=== PATIENT | female | born 1995 | race Hispanic/Latino ===

== ENCOUNTER 2018-03-31 09:41 | Emergency (ER) | payer OTHER, SELFPAY ==
[2018-03-31] MEDS ORDERED: ONDANSETRON 4 MG/2 ML VIAL ONE (10:02)
[2018-03-31] MEDS ORDERED: MORPHINE 4 MG/ML SYR ONE ×2 (10:26→14:38)
[2018-03-31 10:34] LABS: Absolute Lymphocytes (CBC) 1.7 K/uL (0.7-4.9); Absolute Monocytes 1.2 K/uL (0.1-1.3); Basophils % 0.4 % (0-1.3); Eosinophils % 0.2 % (0-4.4); Hematocrit 43.5 % (36.0-45.0); Lymphocytes % 8.9 % (15.3-44.8); MCH 30.5 pg (27.0-35.0); MCV 90.1 fL (80-100); MPV 8.4 fL (7.6-11.3); Monocytes % 6.1 % (3.3-12.3); RBC Red Blood Cell Count 4.83 M/uL (3.86-4.86)
[2018-03-31 10:36] LABS: Protime INR 0.91
[2018-03-31 10:37] LABS: Potassium 3.7 mEq/L (3.6-5.0)
[2018-03-31 10:43] LABS: Albumin 4.6 g/dL (3.2-5.5); Bilirubin Direct 0.1 mg/dL (0-0.2); Bilirubin Total 0.5 mg/dL (0.3-1.2); Protein, Total 8.2 g/dL (6.0-8.3)
[2018-03-31 10:47] LABS: CKMB Creatine Kinase MB 2.5 ng/ml (0.3-4.0)
[2018-03-31 10:51] LABS: Urine Blood NEGATIVE (NEG); Urine Glucose NEGATIVE (NEG); Urine Protein NEGATIVE (NEG)
[2018-03-31 10:59] LABS: Urine Bacteria <20 /HPF (<20); Urine Culture Reflex Order REFLEXED; Urine RBC <5 /HPF (NONE SEEN)
--- NOTE | 2018-03-31 11:38 | RAD REPORT ---
EXAM DESCRIPTION: Emmie Single View03/31/2018 10:43 am CLINICAL HISTORY: Chest pain COMPARISON: none FINDINGS: The lungs appear clear of acute infiltrate. The heart is normal size IMPRESSION: No acute abnormalities displayed
--- NOTE | 2018-03-31 15:20 | EDPHYS ---
Physician Documentation [facility] Name: Beena Garcia Age: 22 yrs Sex: Female : 1995 Arrival Date: 03/31/2018 Time: 09:43 Bed 5 Private MD: None, None ED Physician Nikhil Agustin HPI: 03/31 14:00 This 22 yrs old Female presents to ER via Ambulatory with complaints of Chest pm1 Pain. 16:03 The patient or guardian reports chest pain that is located primarily in the anterior pm1 chest wall, left. The pain radiates to bilaterally. Associated signs and symptoms: Pertinent positives: nausea, shortness of breath. The chest pain is described as burning. Duration: The patient or guardian reports a single episode, that is still ongoing, that lasted 4 hour(s), Onset at 0600 today. Modifying factors: The symptoms are alleviated by nothing. the symptoms are aggravated by deep breath, palpation of area. Severity of pain: in the emergency department the pain is actually worse. The patient has not experienced similar symptoms in the past. The patient has not recently seen a physician. 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 - Social history:: Smoking status: Patient/guardian denies using tobacco. - Ebola Screening: : No symptoms or risks identified at this time. ROS: 14:00 Constitutional: Negative for fever, chills, and weight loss, Eyes: Negative for injury, pm1 pain, redness, and discharge, ENT: Negative for injury, pain, and discharge, Neck: Negative for injury, pain, and swelling. 14:00 Respiratory: Negative for shortness of breath, cough, wheezing, and pleuritic chest pain, Abdomen/GI: Negative for abdominal pain, nausea, vomiting, diarrhea, and constipation, Back: Negative for injury and pain, : Negative for injury, bleeding, discharge, and swelling, MS/Extremity: Negative for injury and deformity, Skin: Negative for injury, rash, and discoloration, Neuro: Negative for headache, weakness, numbness, tingling, and seizure. 14:00 Cardiovascular: Positive for chest pain, of the anterior aspect of left upper chest, Negative for edema, palpitations. Exam: 14:00 Constitutional: This is a well developed, well nourished patient who is awake, alert, pm1 and in no acute distress. Head/Face: Normocephalic, atraumatic. Eyes: Pupils equal round and reactive to light, extra-ocular motions intact. Lids and lashes normal. Conjunctiva and sclera are non-icteric and not injected. Cornea within normal limits. Periorbital areas with no swelling, redness, or edema. ENT: Nares patent. No nasal discharge, no septal abnormalities noted. Tympanic membranes are normal and external auditory canals are clear. Oropharynx with no redness, swelling, or masses, exudates, or evidence of obstruction, uvula midline. Mucous membranes moist. Neck: Trachea midline, no thyromegaly or masses palpated, and no cervical lymphadenopathy. Supple, full range of motion without nuchal rigidity, or vertebral point tenderness. No Meningismus. 14:00 Cardiovascular: Regular rate and rhythm with a normal S1 and S2. No gallops, murmurs, or rubs. Normal PMI, no JVD. No pulse deficits. Respiratory: Lungs have equal breath sounds bilaterally, clear to auscultation and percussion. No rales, rhonchi or wheezes noted. No increased work of breathing, no retractions or nasal flaring. Abdomen/GI: Soft, non-tender, with normal bowel sounds. No distension or tympany. No guarding or rebound. No evidence of tenderness throughout. Back: No spinal tenderness. No costovertebral tenderness. Full range of motion. Skin: Warm, dry with normal turgor. Normal color with no rashes, no lesions, and no evidence of cellulitis. MS/ Extremity: Pulses equal, no cyanosis. Neurovascular intact. Full, normal range of motion. 14:00 Chest/axilla: Inspection: normal, Palpation: tenderness, that is moderate, of the anterior aspect of left upper chest and mid-sternal area, that totally reproduces the patient's complaints, reproduced totally with inspiration . 14:00 Neuro: Orientation: is normal, Motor: is normal, moves all fours. Vital Signs: 09:47 BP 132 / 87; Pulse 85; Resp 16; Temp 97.9; Pulse Ox 100% on R/A; Weight 65.77 kg; hb Height 4 ft. 11 in. (149.86 cm); Pain 9/10; 10:28 BP 123 / 83; Pulse 89; Resp 16 S; Pulse Ox 98% on R/A; Pain 9/10; aa5 11:32 BP 122 / 87; Pulse 85; Resp 20; Pulse Ox 97% ; jl7 12:20 BP 111 / 76; Pulse 80; Resp 16 S; Pulse Ox 96% on R/A; Pain 0/10; aa5 13:05 BP 105 / 75; Pulse 88; Resp 12; Pulse Ox 97% on R/A; Pain 0/10; ch 14:00 BP 107 / 70; Pulse 82; Resp 16; Pulse Ox 97% ; Pain 4/10; jl7 15:47 BP 112 / 68; Pulse 65; Resp 14; Temp 97.8; Pulse Ox 99% on R/A; Pain 0/10; ch 09:47 Body Mass Index 29.29 (65.77 kg, 149.86 cm) hb MDM: 09:51 Patient medically screened. pm1 15:15 Data reviewed: vital signs. Data interpreted: Pulse oximetry: on room air is 97 %. pm1 Interpretation: normal. Counseling: I had a detailed discussion with the patient and/or guardian regarding: the historical points, exam findings, and any diagnostic results supporting the discharge/admit diagnosis, lab results, radiology results, the need for outpatient follow up, to return to the emergency department if symptoms worsen or persist or if there are any questions or concerns that arise at home. 15:15 ED course: NSR ECG and negative troponin x 2 4 hours apart. pm1 03/31 09:52 Order name: Basic Metabolic Panel; Complete Time: 11:19 pm03/31 09:52 Order name: BNP; Complete Time: 11:19 pm03/31 09:52 Order name: CBC with Diff; Complete Time: 10:39 pm03/31 09:52 Order name: Ckmb; Complete Time: 11:19 pm03/31 09:52 Order name: CPK; Complete Time: 11:19 pm03/31 09:52 Order name: LFT's; Complete Time: 11:19 pm03/31 09:52 Order name: Magnesium; Complete Time: 11:19 pm03/31 09:52 Order name: PT-INR; Complete Time: 10:39 pm03/31 09:52 Order name: Ptt, Activated; Complete Time: 10:39 pm03/31 09:52 Order name: Troponin (emerg Dept Use Only); Complete Time: 11:19 pm1 03/31 10:18 Order name: Urine Dipstick--Ancillary (enter results); Complete Time: 11:19 bd 03/31 10:18 Order name: Urine --Ancillary (enter results); Complete Time: 11:19 bd 03/31 10:43 Order name: Urine Microscopic Only; Complete Time: 11:19 jb1 03/31 11:01 Order name: Urine Culture EDMS 03/31 09:52 Order name: Urine Test (obtain specimen); Complete Time: 10:21 pm03/31 09:52 Order name: XRAY Chest (1 view); Complete Time: 11:38 pm03/31 09:52 Order name: EKG; Complete Time: 09:52 pm03/31 09:52 Order name: Cardiac monitoring; Complete Time: 09:59 pm03/31 09:52 Order name: EKG - Nurse/Tech; Complete Time: 09:59 pm03/31 09:52 Order name: IV Saline Lock; Complete Time: 10:21 pm03/31 09:52 Order name: Labs collected and sent; Complete Time: 10:21 pm03/31 09:52 Order name: O2 Per Protocol; Complete Time: 09:59 pm03/31 09:52 Order name: O2 Sat Monitoring; Complete Time: 09:59 pm03/31 09:52 Order name: Urine Dipstick-Ancillary (obtain specimen); Complete Time: 10:21 pm03/31 11:41 Order name: D-Dimer; Complete Time: 11:56 pm03/31 14:19 Order name: Troponin (emerg Dept Use Only); Complete Time: 15:15 pm03/31 14:24 Order name: EKG; Complete Time: 14:25 jl7 03/31 14:24 Order name: EKG - Nurse/Tech; Complete Time: 14:35 jl7 Administered Medications: 10:25 Drug: Zofran 4 mg Route: IVP; Site: right antecubital; aa5 10:30 Follow up: Response: No adverse reaction; Nausea is decreased aa5 10:29 Drug: morphine 4 mg Route: IVP; Site: right antecubital; aa5 10:35 Follow up: Response: No adverse reaction aa5 14:40 Drug: morphine 2 mg Route: IVP; Site: right antecubital; jl7 15:34 Follow up: Response: No adverse reaction; Marked relief of symptoms Disposition: 04/01 14:08 Co-signature as Attending Physician, Nikhil Agustin MD I agree with the assessment and samson plan of care. Disposition: 03/31/18 15:19 Discharged to Home. Impression: Chest pain, unspecified. - Condition is Stable. - Discharge Instructions: Nonspecific Chest Pain. - Work release form, Family Work Release, Medication Reconciliation Form, Thank You Letter form. - Follow up: Emergency Department; When: As needed; Reason: Worsening of condition. Follow up: Private Physician; When: 2 - 3 days; Reason: Recheck today's complaints, Continuance of care, Re-evaluation by your physician. - Problem is new. - Symptoms have improved. Signatures: Dispatcher [employer] EDAlta Smith, RN RN Nikhil Galdamez MD MD cha Calderon, Audri, RN RN aa5 Jose Luis Adame, INTELLIGENCE ENGINEER INTELLIGENCE ENGINEER pm1 Christine Ray, RN RN Nicole Luna RN RN jl7 Corrections: (The following items were deleted from the chart) 03/31 15:48 15:19 03/31/2018 15:19 Discharged to Home. Impression: Chest pain, unspecified. Condition is Stable. Forms are Medication Reconciliation Form, Thank You Letter, Antibiotic Education, Prescription Opioid Use. Follow up: Emergency Department; When: As needed; Reason: Worsening of condition. Follow up: Private Physician; When: 2 - 3 days; Reason: Recheck today's complaints, Continuance of care, Re-evaluation by your physician. Problem is new. Symptoms have improved. pm1
--- NOTE | 2018-03-31 15:20 | ER ---
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 Also c/o nausea and SOB. Denies fever/cough/cardiac hx. Transition of care: patient was not received from another setting of care. Onset of symptoms was March 31, 2018. Risk Assessment: Do you want to hurt yourself or someone else? Patient reports no desire to harm self or others. Initial Sepsis Screen: Does the patient meet any 2 criteria? No. Patient's initial sepsis screen is negative. Does the patient have a suspected source of infection? No. Patient's initial sepsis screen is negative. Care prior to arrival: None. 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 - Social history:: Smoking status: Patient/guardian denies using tobacco. - Ebola Screening: : No symptoms or risks identified at this time. Screenin:05 Abuse screen: Denies threats or abuse. Nutritional screening: No deficits noted. aa5 Tuberculosis screening: No symptoms or risk factors identified. Fall Risk None identified. Assessment: 10:00 General: Appears uncomfortable, Behavior is anxious. Pain: Complains of pain in aa5 mid-sternal area Pain radiates to jaw Pain currently is 9 out of 10 on a pain scale. Quality of pain is described as pressure, Pain began last night. Pt states "I just had a little bit of pain last night and this morning when I woke up I still had it" Is continuous. Neuro: Level of Consciousness is awake, alert, obeys commands, Oriented to person, place, time, situation, Supervisor Tile And Mottle are equal bilaterally Moves all extremities. Gait is steady, Speech is normal, Facial symmetry appears normal, Pupils are PERRLA, Reports numbness in chin, right jaw and left jaw. Cardiovascular: Heart tones S1 S2 present Rhythm is regular. Respiratory: Reports shortness of breath Airway is patent Respiratory effort is even, unlabored, Respiratory pattern is regular, symmetrical, Breath sounds are clear bilaterally. Denies cough. GI: Abdomen is round non-distended, Bowel sounds present X 4 quads. Abd is soft and non tender X 4 quads. Reports nausea, Patient currently denies vomiting. : No signs and/or symptoms were reported regarding the genitourinary system. EENT: No signs and/or symptoms were reported regarding the EENT system. Derm: Skin is pink, warm \\T\\ dry. Musculoskeletal: Range of motion: intact in all extremities. 10:28 Reassessment: Patient and/or family updated on plan of care and expected duration. Pain aa5 level reassessed. Patient is alert, oriented x 3, equal unlabored respirations, skin warm/dry/pink. Pt requesting pain medication, MILKING WORKER notified. . 11:45 Reassessment: Patient and/or family updated on plan of care and expected duration. Pain aa5 level reassessed. Patient is alert, oriented x 3, equal unlabored respirations, skin warm/dry/pink. Patient denies pain at this time. Patient states feeling better. 12:20 Reassessment: Patient and/or family updated on plan of care and expected duration. Pain aa5 level reassessed. Patient is alert, oriented x 3, equal unlabored respirations, skin warm/dry/pink. Patient denies pain at this time. 13:01 Reassessment: Patient appears in no apparent distress at this time. Patient and/or ch family updated on plan of care and expected duration. Pain level reassessed. Patient is alert, oriented x 3, equal unlabored respirations, skin warm/dry/pink. Patient denies pain at this time. Patient states feeling better. Patient states symptoms have improved. 14:00 Reassessment: Patient and/or family updated on plan of care and expected duration. Pain jl7 level reassessed. Patient is alert, oriented x 3, equal unlabored respirations, skin warm/dry/pink. 14:15 Reassessment: Repeat troponin drawn and sent to lab. Pt reports continued chest pain, jl7 rated 4/10, provider notified, see MAR for orders. 15:47 Reassessment: Patient appears in no apparent distress at this time. Patient and/or ch family updated on plan of care and expected duration. Pain level reassessed. Patient is alert, oriented x 3, equal unlabored respirations, skin warm/dry/pink. Patient denies pain at this time. Patient states feeling better. Patient states symptoms have improved. Vital Signs: 09:47 BP 132 / 87; Pulse 85; Resp 16; Temp 97.9; Pulse Ox 100% on R/A; Weight 65.77 kg; hb Height 4 ft. 11 in. (149.86 cm); Pain 9/10; 10:28 BP 123 / 83; Pulse 89; Resp 16 S; Pulse Ox 98% on R/A; Pain 9/10; aa5 11:32 BP 122 / 87; Pulse 85; Resp 20; Pulse Ox 97% ; jl7 12:20 BP 111 / 76; Pulse 80; Resp 16 S; Pulse Ox 96% on R/A; Pain 0/10; aa5 13:05 BP 105 / 75; Pulse 88; Resp 12; Pulse Ox 97% on R/A; Pain 0/10; ch 14:00 BP 107 / 70; Pulse 82; Resp 16; Pulse Ox 97% ; Pain 4/10; jl7 15:47 BP 112 / 68; Pulse 65; Resp 14; Temp 97.8; Pulse Ox 99% on R/A; Pain 0/10; ch 09:47 Body Mass Index 29.29 (65.77 kg, 149.86 cm) hb ED Course: 09:43 Patient arrived in ED. mr 09:44 None, None is Private Physician. mr 09:47 Triage completed. hb 09:48 Arm band placed on left wrist. hb 09:49 Jose Luis Adame NP is PHCP. pm1 09:49 Nikhil Agustin MD is Attending Physician. pm1 09:49 Cally Moe, MISHA is Primary Nurse. aa5 10:00 Patient has correct armband on for positive identification. Placed in gown. Bed in low aa5 position. Call light in reach. Side rails up X2. 10:00 forepart laster on. Pulse ox on. NIBP on. aa5 10:06 Patient maintains SpO2 saturation greater than 95% on room air. aa5 10:06 No provider procedures requiring assistance completed. aa5 10:20 Initial lab(s) drawn, by me, sent to lab. Urine collected: clean catch specimen, clear, jp3 jordan colored. Inserted saline lock: 22 gauge in right antecubital area, using aseptic technique. Blood collected. 10:42 X-ray completed. Portable x-ray completed in exam room. Patient tolerated procedure kw well. 10:43 XRAY Chest (1 view) In Process Unspecified. EDMS 13:00 Primary Nurse role handed off by Cally Moe, RN 13:00 Alta Newberry, MISHA is Primary Nurse. ch 14:20 EKG done, by ED staff. jp3 15:47 No apparent distress. Resting quietly. ch 15:47 IV discontinued, intact, bleeding controlled, No redness/swelling at site. Pressure ch dressing applied. Administered Medications: 10:25 Drug: Zofran 4 mg Route: IVP; Site: right antecubital; aa5 10:30 Follow up: Response: No adverse reaction; Nausea is decreased aa5 10:29 Drug: morphine 4 mg Route: IVP; Site: right antecubital; aa5 10:35 Follow up: Response: No adverse reaction aa5 14:40 Drug: morphine 2 mg Route: IVP; Site: right antecubital; jl7 15:34 Follow up: Response: No adverse reaction; Marked relief of symptoms ch Outcome: 15:19 Discharge ordered by MD. pm1 15:47 Discharged to home ambulatory, with family. ch 15:47 Condition: improved 15:47 Discharge instructions given to patient, family, Instructed on discharge instructions, follow up and referral plans. Demonstrated understanding of instructions, follow-up care. 15:48 Patient left the ED. ch Signatures: Dispatcher [employer] EDWA Alta Newberry, Demetria Lindsay RN, ch mr Cally Moe, RN RN aa5 Tamra Gates Patrick, MILKING WORKER MILKING WORKER pm1 Christine Ray RN RN hb Nicole Thomas RN RN jl7 Mairano Dupree jp3 Corrections: (The following items were deleted from the chart) 09:53 09:46 Presenting complaint: Patient states: Chest pressure that radiates to left jaw hb that started during sleep this morning. Also c/o nausea and SOB. Denies fever/cough/cardiac hx hb 10:05 10:00 Pain: Complains of pain in mid-sternal area Pain radiates to jaw Pain Quality of aa5 pain is described as pressure, Pain began last night. Pt states "I just had a little bit of pain last night and this morning when I woke up I still had it" Is continuous, aa5
--- NOTE | 2018-04-01 06:31 | EKG ---
Test Date: 2018-03-31 Test Time: 09:56:18 Attorney Recruiter: VLAD MEASUREMENT RESULTS: Intervals: Rate: 72 CA: 154 QRSD: 80 QT: 358 QTc: 392 [place]: P: 39 CA: 154 QRS: 64 T: 73 INTERPRETIVE STATEMENTS: Normal sinus rhythm Normal ECG Compared to ECG 06/13/2017 01:46:02 Sinus tachycardia no longer present T-wave abnormality no longer present Electronically Signed On 04-01-18 06:29:57 CDT by Aakash Joaquin
--- NOTE | 2018-04-01 06:31 | EKG ---
Test Date: 2018-03-31 Test Time: 14:24:58 Marine Cargo Specialist: BECKY MEASUREMENT RESULTS: Intervals: Rate: 80 [place]: 144 QRSD: 84 QT: 368 QTc: 424 [place]: P: 45 [place]: 144 QRS: 61 T: 52 INTERPRETIVE STATEMENTS: Normal sinus rhythm Early repolarization Normal ECG Compared to ECG 03/31/2018 09:56:18 Early repolarization now present Electronically Signed On 04-01-18 06:29:21 CDT by Aakash Joaquin
== END 2018-03-31 15:48 | disposition home or self-care (01) ==
LOC: ER 09:41
DX: R07.9 Chest pain, unspecified (principal); Z88.5 Allergy status to narcotic agent
CPT/HCPCS: 36415; 71045; 80048; 80076; 81003; 81015; 81025; 82550; 82553; 83735; 83880; 84484; 85025; 85379; 85610; 85730; 87086; 87088; 93005; 96374; 96375; 99285; J2405

== ENCOUNTER 2018-04-08 05:33 | Emergency (ER) | payer SELFPAY ==
[2018-04-08] MEDS ORDERED: PANTOPRAZOLE 40MG TABLET PO ONE (06:28)
[2018-04-08] MEDS ORDERED: MAGNE/ALUM HYDROXD 30 ML UCUP ONE (06:28)
[2018-04-08] MEDS ORDERED: LIDOCAINE VISCOUS 2% SOLN 15 ML UDC ONE (06:29)
--- NOTE | 2018-04-08 07:29 | ER ---
Nurse's Notes [facility] Name: Beena Garcia Age: 22 yrs Sex: Female : 1995 Arrival Date: 04/08/2018 Time: 05:36 Bed 19 Private MD: Diagnosis: Gastro-esophageal reflux disease Presentation: 04/08 05:46 Presenting complaint: Patient states: I HAD THE SAME LAST WEEK, THIS CHEST PAIN IN THE bp MIDDLE, SO BAD I CAN'T SLEEP PT APPEARS IN NO ACUTE DISTRESS. Transition of care: patient was not received from another setting of care. Onset of symptoms is unknown. Risk Assessment: Do you want to hurt yourself or someone else? Patient reports no desire to harm self or others. Initial Sepsis Screen: Does the patient meet any 2 criteria? No. Patient's initial sepsis screen is negative. Does the patient have a suspected source of infection? No. Patient's initial sepsis screen is negative. Care prior to arrival: None. 05:46 Method Of Arrival: Ambulatory bp 05:46 Acuity: LETTY 3 bp Triage Assessment: 05:47 General: Appears in no apparent distress. comfortable, obese, Behavior is calm, bp cooperative, appropriate for age. Pain: Complains of pain in mid-sternal area. EENT: No deficits noted. Neuro: Level of Consciousness is awake, alert, obeys commands, Oriented to person, place, time, situation, Appropriate for age. Cardiovascular: Rhythm is sinus rhythm. Respiratory: Airway is patent. GI: No signs and/or symptoms were reported involving the gastrointestinal system. : No signs and/or symptoms were reported regarding the genitourinary system. Derm: No deficits noted. Musculoskeletal: Circulation, motion, and sensation intact. Range of motion: intact in all extremities. 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 - Social history:: Smoking status: Patient/guardian denies using tobacco, Patient uses alcohol. - Ebola Screening: : Patient negative for fever greater than or equal to 101.5 degrees Fahrenheit, and additional compatible Ebola Virus Disease symptoms Patient denies exposure to infectious person Patient denies travel to an Ebola-affected area in the 21 days before illness onset No symptoms or risks identified at this time. Screenin:50 Abuse screen: Denies threats or abuse. Denies injuries from another. Nutritional bp screening: No deficits noted. Tuberculosis screening: No symptoms or risk factors identified. Fall Risk None identified. Assessment: 05:49 General: SEE TRIAGE NOTE. bp 07:40 Reassessment: Patient appears in no apparent distress at this time. Patient and/or sv family updated on plan of care and expected duration. Pain level reassessed. Patient is alert, oriented x 3, equal unlabored respirations, skin warm/dry/pink. Vital Signs: 05:47 BP 119 / 71; Pulse 107; Resp 16; Temp 98.7; Pulse Ox 97% ; Weight 68.04 kg; Height 4 bp ft. 11 in. (149.86 cm); 07:15 BP 114 / 67; Pulse 80; Resp 18; Pulse Ox 97% ; sv 05:47 Body Mass Index 30.30 (68.04 kg, 149.86 cm) bp ED Course: 05:36 Patient arrived in ED. es 05:38 Maldonado Norton, RN is Primary Nurse. bp 05:47 Triage completed. bp 05:47 Arm band placed on. bp 05:50 Patient has correct armband on for positive identification. Bed in low position. Call bp light in reach. Side rails up X2. Pulse ox on. NIBP on. 06:10 Caron Sutton FNP-C is PHCP. snw 06:10 Waldemar Mcmahan MD is Attending Physician. snw 07:06 Primary Nurse role handed off by Maldonado Norton, MISHA bd 07:15 Luma Gaviria, MISHA is Primary Nurse. sv 07:40 No provider procedures requiring assistance completed. Patient did not have IV access sv during this emergency room visit. Patient maintains SpO2 saturation greater than 95% on room air. Administered Medications: 06:31 Drug: GI Cocktail without - (Maalox Suspension 30 ml, Lidocaine Liquid 2 % 15 bp ml) Route: PO; 07:41 Follow up: Response: No adverse reaction sv 06:31 Drug: ProTONIX 40 mg Route: PO; bp 07:41 Follow up: Response: No adverse reaction sv Outcome: 07:29 Discharge ordered by . snw 07:40 Discharged to home ambulatory, with friend. 07:40 Condition: stable 07:40 Discharge instructions given to patient, Instructed on discharge instructions, follow up and referral plans. medication usage, stay away acidic foods and drinks Demonstrated understanding of instructions, follow-up care, medications, Prescriptions given X 1. 07:42 Patient left the ED. Signatures: Renetta Palacios Stephanie, RN RN sv Caron Sutton, HOCKEY INSTRUCTOR-C HOCKEY INSTRUCTOR-Csnw Soniya Mccoy Brian, RN RN bp
--- NOTE | 2018-04-08 07:29 | EDPHYS ---
Physician Documentation [facility] Name: Beena Garcia Age: 22 yrs Sex: Female : 1995 Arrival Date: 04/08/2018 Time: 05:36 Bed 19 Private MD: ED Physician Waldemar Mcmahan HPI: 04/08 06:28 This 22 yrs old Female presents to ER via Ambulatory with complaints of Chest snw Pain. 06:28 Onset: The symptoms/episode began/occurred suddenly, and became persistent this snw morning. Associated signs and symptoms: The patient has no apparent associated signs or symptoms. Modifying factors: The patient symptoms are alleviated by nothing. The patient has experienced similar episodes in the past, multiple times. The patient has been recently seen by a physician: The patient has been recently seen at the [facility] Emergency Department, last week, for similar complaints extended work up negative. 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 - Social history:: Smoking status: Patient/guardian denies using tobacco, Patient uses alcohol. - Ebola Screening: : Patient negative for fever greater than or equal to 101.5 degrees Fahrenheit, and additional compatible Ebola Virus Disease symptoms Patient denies exposure to infectious person Patient denies travel to an Ebola-affected area in the 21 days before illness onset No symptoms or risks identified at this time. ROS: 06:27 Constitutional: Negative for fever, chills, and weight loss, Eyes: Negative for injury, snw pain, redness, and discharge, ENT: Negative for injury, pain, and discharge, Neck: Negative for injury, pain, and swelling, Respiratory: Negative for shortness of breath, cough, wheezing, and pleuritic chest pain, Abdomen/GI: Negative for abdominal pain, nausea, vomiting, diarrhea, and constipation, Back: Negative for injury and pain, : Negative for injury, bleeding, discharge, and swelling, MS/Extremity: Negative for injury and deformity, Skin: Negative for injury, rash, and discoloration, Neuro: Negative for headache, weakness, numbness, tingling, and seizure. 06:27 Cardiovascular: Positive for chest pain, of the mid-sternal area. Exam: 06:27 Constitutional: This is a well developed, well nourished patient who is awake, alert, snw and in no acute distress. Head/Face: Normocephalic, atraumatic. Eyes: Pupils equal round and reactive to light, extra-ocular motions intact. Lids and lashes normal. Conjunctiva and sclera are non-icteric and not injected. Cornea within normal limits. Periorbital areas with no swelling, redness, or edema. ENT: Nares patent. No nasal discharge, no septal abnormalities noted. Tympanic membranes are normal and external auditory canals are clear. Oropharynx with no redness, swelling, or masses, exudates, or evidence of obstruction, uvula midline. Mucous membranes moist. Neck: Trachea midline, no thyromegaly or masses palpated, and no cervical lymphadenopathy. Supple, full range of motion without nuchal rigidity, or vertebral point tenderness. No Meningismus. Chest/axilla: Normal chest wall appearance and motion. Nontender with no deformity. No lesions are appreciated. Cardiovascular: Regular rate and rhythm with a normal S1 and S2. No gallops, murmurs, or rubs. Normal PMI, no JVD. No pulse deficits. Respiratory: Lungs have equal breath sounds bilaterally, clear to auscultation and percussion. No rales, rhonchi or wheezes noted. No increased work of breathing, no retractions or nasal flaring. Abdomen/GI: Soft, non-tender, with normal bowel sounds. No distension or tympany. No guarding or rebound. No evidence of tenderness throughout. Back: No spinal tenderness. No costovertebral tenderness. Full range of motion. Skin: Warm, dry with normal turgor. Normal color with no rashes, no lesions, and no evidence of cellulitis. MS/ Extremity: Pulses equal, no cyanosis. Neurovascular intact. Full, normal range of motion. Neuro: Awake and alert, GCS 15, oriented to person, place, time, and situation. Cranial nerves II-XII grossly intact. Motor strength 5/5 in all extremities. Sensory grossly intact. Cerebellar exam normal. Normal gait. Psych: Awake, alert, with orientation to person, place and time. Behavior, mood, and affect are within normal limits. Vital Signs: 05:47 BP 119 / 71; Pulse 107; Resp 16; Temp 98.7; Pulse Ox 97% ; Weight 68.04 kg; Height 4 bp ft. 11 in. (149.86 cm); 07:15 BP 114 / 67; Pulse 80; Resp 18; Pulse Ox 97% ; sv 05:47 Body Mass Index 30.30 (68.04 kg, 149.86 cm) bp MDM: 06:10 Patient medically screened. snw 07:30 Data reviewed: vital signs, nurses notes. Data interpreted: Pulse oximetry: on room air snw is 97 %. Interpretation: normal. Counseling: I had a detailed discussion with the patient and/or guardian regarding: the historical points, exam findings, and any diagnostic results supporting the discharge/admit diagnosis, the need for outpatient follow up, to return to the emergency department if symptoms worsen or persist or if there are any questions or concerns that arise at home. Special discussion: Based on the history and exam findings, there is no indication for further emergent testing or inpatient evaluation. I discussed with the patient/guardian the need to see the primary care provider for further evaluation of the symptoms. Administered Medications: 06:31 Drug: GI Cocktail without - (Maalox Suspension 30 ml, Lidocaine Liquid 2 % 15 bp ml) Route: PO; 07:41 Follow up: Response: No adverse reaction sv 06:31 Drug: ProTONIX 40 mg Route: PO; bp 07:41 Follow up: Response: No adverse reaction sv Disposition: 13:06 Co-signature as Attending Physician, Waldemar Mcmahan MD. Disposition: 04/08/18 07:29 Discharged to Home. Impression: Gastro-esophageal reflux disease. - Condition is Stable. - Discharge Instructions: Gastroesophageal Reflux Disease, Adult. - Prescriptions for Nexium 20 mg Oral Capsule - take 1 capsule by ORAL route once daily; 20 capsule. - Medication Reconciliation Form, Thank You Letter, Antibiotic Education, Prescription Opioid Use form. - Follow up: Private Physician; When: 2 - 3 days; Reason: Recheck today's complaints, Continuance of care, Re-evaluation by your physician. Follow up: Emergency Department; When: As needed; Reason: Worsening of condition. Signatures: Luma Gaviria RN RN Caron Akbar, NEGATIVE TURNER-C NEGATIVE TURNER-Csnw Waldemar Mcmahan MD MD gs Peltier, Brian, RN RN bp Corrections: (The following items were deleted from the chart) 07:42 07:29 04/08/2018 07:29 Discharged to Home. Impression: Gastro-esophageal reflux sv disease. Condition is Stable. Forms are Medication Reconciliation Form, Thank You Letter, Antibiotic Education, Prescription Opioid Use. Follow up: Private Physician; When: 2 - 3 days; Reason: Recheck today's complaints, Continuance of care, Re-evaluation by your physician. Follow up: Emergency Department; When: As needed; Reason: Worsening of condition. snw
== END 2018-04-08 07:42 | disposition home or self-care (01) ==
LOC: ER 05:33
DX: K21.9 Gastro-esophageal reflux disease without esophagitis (principal); Z88.6 Allergy status to analgesic agent
CPT/HCPCS: 99284

== ENCOUNTER 2018-10-02 17:12 | Emergency (ER) | payer SELFPAY ==
--- NOTE | 2018-10-02 20:21 | ER ---
Nurse's Notes [facility] Name: Beena Garcia Age: 23 yrs Sex: Female : 1995 Arrival Date: 10/02/2018 Time: 17:14 Bed 12 Private MD: Diagnosis: Acute pharyngitis, unspecified Presentation: 10/02 17:34 Presenting complaint: Patient states: cough, congestion, sore throat, and layne ear pain aa5 x 1 week ago. Transition of care: patient was not received from another setting of care. Onset of symptoms was September 2018. Risk Assessment: Do you want to hurt yourself or someone else? Patient reports no desire to harm self or others. Initial Sepsis Screen: Does the patient meet any 2 criteria? No. Patient's initial sepsis screen is negative. Does the patient have a suspected source of infection? No. Patient's initial sepsis screen is negative. Care prior to arrival: None. 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 - Social history:: Smoking status: Patient/guardian denies using tobacco. - Ebola Screening: : No symptoms or risks identified at this time. Screenin:37 Abuse screen: Denies threats or abuse. Denies injuries from another. Nutritional iw screening: No deficits noted. Tuberculosis screening: No symptoms or risk factors identified. Fall Risk None identified. Assessment: 19:34 General: Appears in no apparent distress. Behavior is calm, cooperative. Pain: iw Complains of pain in throat. Pain: Complains of pain in right ear and left ear. Neuro: Level of Consciousness is awake, alert, obeys commands, Oriented to person, place, time, situation, Moves all extremities. Full function. Cardiovascular: Patient's skin is warm and dry. Respiratory: Respiratory effort is even, unlabored, Respiratory pattern is regular. Derm: Skin is intact, is healthy with good turgor. Musculoskeletal: Range of motion: intact in all extremities. 20:12 Reassessment: Patient appears in no apparent distress at this time. Patient and/or iw family updated on plan of care and expected duration. Pain level reassessed. Patient is alert, oriented x 3, equal unlabored respirations, skin warm/dry/pink. Vital Signs: 17:35 BP 115 / 77; Pulse 82; Resp 16 S; Temp 98.6(TE); Pulse Ox 98% on R/A; Weight 68.04 kg aa5 (R); Height 4 ft. 11 in. (149.86 cm) (R); Pain 7/10; 20:11 BP 124 / 77; Pulse 78; Resp 16 S; Pulse Ox 98% on R/A; Pain 0/10; iw 17:35 Body Mass Index 30.30 (68.04 kg, 149.86 cm) aa5 ED Course: 17:14 Patient arrived in ED. rg4 17:34 Triage completed. aa5 17:34 Arm band placed on. aa5 18:17 Ivonne Thompson FNP-C is [facility]. kb 18:17 Eduard Grady MD is Attending Physician. kb 19:29 Priscila Allen, RN is Primary Nurse. iw 19:33 Flu and/or RSV swab sent to lab. Strep swab sent to lab. iw 20:00 Patient has correct armband on for positive identification. iw 20:19 No provider procedures requiring assistance completed. Patient did not have IV access iw during this emergency room visit. Administered Medications: No medications were administered Outcome: 20:20 Discharge ordered by MD. kb 20:30 Discharged to home ambulatory, with family. iw 20:30 Condition: good 20:30 Discharge instructions given to patient, Instructed on discharge instructions, follow up and referral plans. Demonstrated understanding of instructions, follow-up care. 20:34 Patient left the ED. iw Signatures: Ivonne hTompson FNP-C FNP-Priscila Guzmán, RN RN Cally Moe RN RN aa5 Awilda Kerr rg4
--- NOTE | 2018-10-02 20:22 | EDPHYS ---
Physician Documentation [facility] Name: Beena Garcia Age: 23 yrs Sex: Female : 1995 Arrival Date: 10/02/2018 Time: 17:14 Bed 12 Private MD: ED Physician Eduard Grady HPI: 10/02 20:09 This 23 yrs old Female presents to ER via Ambulatory with complaints of Flu kb Symptoms. 20:09 The patient or guardian reports cough, that is intermittent, described as moderate, flu kb symptoms, low-grade fever, myalgias. Onset: The symptoms/episode began/occurred 1 week(s) ago. Severity of symptoms: At their worst the symptoms were moderate, in the emergency department the symptoms are unchanged. Modifying factors: The symptoms are alleviated by nothing, the symptoms are aggravated by nothing. Associated signs and symptoms: Pertinent positives: earache, sore throat, Pertinent negatives: chest pain, diarrhea, fever, nausea, rhinorrhea, vomiting. The patient has not experienced similar symptoms in the past. The patient has not recently seen a physician. 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 - Social history:: Smoking status: Patient/guardian denies using tobacco. - Ebola Screening: : No symptoms or risks identified at this time. ROS: 20:03 Cardiovascular: Negative for chest pain, palpitations, and edema, Abdomen/GI: Negative kb for abdominal pain, nausea, vomiting, diarrhea, and constipation, Back: Negative for injury and pain, MS/Extremity: Negative for injury and deformity, Skin: Negative for injury, rash, and discoloration, Neuro: Negative for headache, weakness, numbness, tingling, and seizure. 20:03 Constitutional: Positive for body aches, chills, fatigue, fever, malaise, Negative for poor PO intake, weight loss. 20:03 ENT: Positive for ear pain, sore throat. 20:03 Respiratory: Positive for cough, Negative for dyspnea on exertion, hemoptysis, orthopnea, pleurisy, shortness of breath, sputum production, wheezing. Exam: 20:08 Constitutional: This is a well developed, well nourished patient who is awake, alert, kb and in no acute distress. Head/Face: Normocephalic, atraumatic. ENT: Nares patent. No nasal discharge, no septal abnormalities noted. Tympanic membranes are normal and external auditory canals are clear. Oropharynx with no redness, swelling, or masses, exudates, or evidence of obstruction, uvula midline. Mucous membranes moist. Neck: Trachea midline, no thyromegaly or masses palpated, and no cervical lymphadenopathy. Supple, full range of motion without nuchal rigidity, or vertebral point tenderness. No Meningismus. Chest/axilla: Normal chest wall appearance and motion. Nontender with no deformity. No lesions are appreciated. Cardiovascular: Regular rate and rhythm with a normal S1 and S2. No gallops, murmurs, or rubs. Normal PMI, no JVD. No pulse deficits. Respiratory: Lungs have equal breath sounds bilaterally, clear to auscultation and percussion. No rales, rhonchi or wheezes noted. No increased work of breathing, no retractions or nasal flaring. Abdomen/GI: Soft, non-tender, with normal bowel sounds. No distension or tympany. No guarding or rebound. No evidence of tenderness throughout. Skin: Warm, dry with normal turgor. Normal color with no rashes, no lesions, and no evidence of cellulitis. MS/ Extremity: Pulses equal, no cyanosis. Neurovascular intact. Full, normal range of motion. Neuro: Awake and alert, GCS 15, oriented to person, place, time, and situation. Cranial nerves II-XII grossly intact. Motor strength 5/5 in all extremities. Sensory grossly intact. Cerebellar exam normal. Normal gait. Vital Signs: 17:35 BP 115 / 77; Pulse 82; Resp 16 S; Temp 98.6(TE); Pulse Ox 98% on R/A; Weight 68.04 kg aa5 (R); Height 4 ft. 11 in. (149.86 cm) (R); Pain 7/10; 20:11 BP 124 / 77; Pulse 78; Resp 16 S; Pulse Ox 98% on R/A; Pain 0/10; iw 17:35 Body Mass Index 30.30 (68.04 kg, 149.86 cm) aa5 MDM: 19:31 Patient medically screened. kb 20:08 Data reviewed: vital signs, nurses notes. Data interpreted: Pulse oximetry: on room air kb is 98 %. Interpretation: normal. 20:20 Counseling: I had a detailed discussion with the patient and/or guardian regarding: the kb historical points, exam findings, and any diagnostic results supporting the discharge/admit diagnosis, lab results, the need for outpatient follow up, a family practitioner, to return to the emergency department if symptoms worsen or persist or if there are any questions or concerns that arise at home. 10/02 18:18 Order name: Flu; Complete Time: 20:10 kb 10/02 18:18 Order name: Strep; Complete Time: 20:08 kb 10/02 20:09 Order name: Throat Culture EDMS Administered Medications: No medications were administered Disposition: 10/02/18 20:20 Discharged to Home. Impression: Acute pharyngitis, unspecified. - Condition is Stable. - Discharge Instructions: Pharyngitis, [id number]. - Medication Reconciliation Form, Thank You Letter, Antibiotic Education, Prescription Opioid Use, Work release form form. - Follow up: Emergency Department; When: As needed; Reason: Worsening of condition. Follow up: Private Physician; When: 2 - 3 days; Reason: Recheck today's complaints, Continuance of care, Re-evaluation by your physician. Addendum: 10/08/2018 01:39 Co-signature as Attending Physician, Eduard Grady MD. r n Signatures: Dispatcher [employer] EDDC Ivonne Thompson, BISHOP-Beatriz IRON INSTALLER-Priscila Guzmán RN RN iw Nieto, Roman, MD MD rn Calderon, Audri, RN RN aa5 Corrections: (The following items were deleted from the chart) 10/02 20:34 20:20 10/02/2018 20:20 Discharged to Home. Impression: Acute pharyngitis, unspecified. iw Condition is Stable. Forms are Medication Reconciliation Form, Thank You Letter, Antibiotic Education, Prescription Opioid Use. Follow up: Emergency Department; When: As needed; Reason: Worsening of condition. Follow up: Private Physician; When: 2 - 3 days; Reason: Recheck today's complaints, Continuance of care, Re-evaluation by your physician. kb
== END 2018-10-02 20:34 | disposition home or self-care (01) ==
LOC: ER 17:12
DX: J02.9 Acute pharyngitis, unspecified (principal); Z88.5 Allergy status to narcotic agent
CPT/HCPCS: 87070; 87081; 87804; 99283

== ENCOUNTER 2018-11-11 14:02 | Emergency (ER) | payer SELFPAY ==
--- OUTSIDE RECORDS SUMMARY | 2018-11-11 14:05 | XMS REPORT ---
:1995 [facility] [address] [place] [address] Dr. Herbert. [address] [place] [id number] Care Team Providers Name Role Phone Unavailable Unavailable Unavailable Problems This patient has no known problems. Allergies, Adverse Reactions, Alerts This patient has no known allergies or adverse reactions. Medications This patient has no known medications.
[2018-11-11 15:38] LABS: Urine Blood 2+ (NEG); Urine Glucose NEGATIVE (NEG); Urine Protein NEGATIVE (NEG); Urine Specific Gravity >1.030 (1.005-1.030); Urine pH 5.5 (5.0-7.0)
[2018-11-11 15:52] LABS: Absolute Lymphocytes (CBC) 1.8 K/uL (0.7-4.9); Absolute Monocytes 0.6 K/uL (0.1-1.3); Absolute Neutrophil 4.4 K/uL (1.8-8.0); Basophils % 0.5 % (0-1.3); Eosinophils % 2.4 % (0-4.4); Hematocrit 41.5 % (36.0-45.0); Lymphocytes % 26.2 % (15.3-44.8); MPV 8.3 fL (7.6-11.3); Monocytes % 8.8 % (3.3-12.3); RBC Red Blood Cell Count 4.54 M/uL (3.86-4.86)
--- NOTE | 2018-11-11 15:58 | ER ---
Nurse's Notes [facility] Name: Beena Garcia Age: 23 yrs Sex: Female : 1995 Arrival Date: 11/11/2018 Time: 14:05 Bed 26 Private MD: None, None Diagnosis: Other abnormal uterine and vaginal bleeding Presentation: 11/11 14:10 Presenting complaint: Patient states: she had her menstrual cycle over a week and ended sv on 11/03/18 and then started spotting dark red blood today. Pt reports having a positive test a few days ago. c/o layne breast soreness. Transition of care: patient was not received from another setting of care. Onset of symptoms was November 11, 2018. Care prior to arrival: None. 14:10 Method Of Arrival: Ambulatory sv 14:10 Acuity: LETTY 3 sv 16:15 Risk Assessment: Do you want to hurt yourself or someone else? Patient reports no ls4 desire to harm self or others. Initial Sepsis Screen: Does the patient meet any 2 criteria? No. Patient's initial sepsis screen is negative. Does the patient have a suspected source of infection? No. Patient's initial sepsis screen is negative. Triage Assessment: 14:10 General: Appears in no apparent distress. comfortable, Behavior is calm, cooperative, sv appropriate for age. Pain: Denies pain. Neuro: Level of Consciousness is awake, alert, obeys commands, Oriented to person, place, time, situation, Gait is steady. Respiratory: Respiratory effort is even, unlabored, Respiratory pattern is regular, symmetrical. : Reports vaginal bleeding that is spotty. 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 - Social history:: Patient/guardian denies using alcohol, street drugs, The patient lives with family, Smoking status: Patient/guardian denies using tobacco, never smoked. - Family history:: not pertinent. - Ebola Screening: : Patient negative for fever greater than or equal to 101.5 degrees Fahrenheit, and additional compatible Ebola Virus Disease symptoms Patient denies exposure to infectious person Patient denies travel to an Ebola-affected area in the 21 days before illness onset No symptoms or risks identified at this time. Screenin:14 Abuse screen: Denies threats or abuse. Denies injuries from another. Nutritional ls4 screening: No deficits noted. Tuberculosis screening: No symptoms or risk factors identified. Fall Risk None identified. Assessment: 16:13 Obstetrical Assessment: General assessment: awake and alert, skin warm and dry. ls4 General: Appears in no apparent distress. comfortable, Behavior is calm, cooperative. Pain: Denies pain. Neuro: No deficits noted. Cardiovascular: No deficits noted. Respiratory: No deficits noted. GI: No deficits noted. : No deficits noted. Derm: No deficits noted. Vital Signs: 14:12 BP 124 / 82; Pulse 91; Resp 16; Temp 98; Pulse Ox 100% ; Weight 69.4 kg; Height 4 ft. sv 11 in. (149.86 cm); Pain 0/10; 14:12 Body Mass Index 30.90 (69.40 kg, 149.86 cm) sv Vitals: 16:16 Heart Tones see MD notes . ls4 ED Course: 14:05 Patient arrived in ED. sb2 14:05 None, None is Private Physician. sb2 14:11 Triage completed. sv 14:12 Arm band placed on Patient placed in waiting room, Patient notified of wait time. sv 15:10 Laura Roldan, MISHA is Primary Nurse. ls4 15:13 Alexsander Biswas MD is Attending Physician. ma2 15:15 No provider procedures requiring assistance completed. Inserted saline lock: 20 gauge ls4 in right antecubital area, using aseptic technique. Blood collected. 15:15 Initial lab(s) drawn, by wi, sent to lab. ls4 16:14 Patient has correct armband on for positive identification. Placed in gown. Bed in low ls4 position. Side rails up X 1. 16:24 IV discontinued, intact, bleeding controlled, No redness/swelling at site. Pressure ls4 dressing applied. Administered Medications: No medications were administered Point of Care Testing: Urine : 16:25 hCG Reading: Negative; ls4 Outcome: 15:57 Discharge ordered by . ma2 16:15 Condition: good ls4 16:24 Discharged to home ambulatory. ls4 16:24 Discharge instructions given to patient, family. 16:26 Patient left the ED. ls4 Signatures: Luma Gaviria, RN RN Alexsander Peraza MD MD or2 Yahaira Hodgson Laura Roldan RN RN ls4
--- NOTE | 2018-11-11 15:58 | EDPHYS ---
Physician Documentation [facility] Name: Beena Garcia Age: 23 yrs Sex: Female : 1995 Arrival Date: 11/11/2018 Time: 14:05 Bed 26 Private MD: None, None ED Physician Alexsander Biswas HPI: 11/11 15:20 This 23 yrs old Female presents to ER via Ambulatory with complaints of ma2 Vaginal Bleeding, + Preg <12wks. 15:20 The patient presents to the emergency department with vaginal bleeding. The estimated ma2 gestational age is 4 weeks. course: care: none. Previous pregnancies: the patient has never been . Associated signs and symptoms: Pertinent positives: diarrhea, dysuria, nausea, Pertinent negatives: chest pain, diarrhea, dysuria, frequency, ruptured membranes. The patient has experienced a previous episode, The patient has experienced similar episodes in the past. 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 - Social history:: Patient/guardian denies using alcohol, street drugs, The patient lives with family, Smoking status: Patient/guardian denies using tobacco, never smoked. - Family history:: not pertinent. - Ebola Screening: : Patient negative for fever greater than or equal to 101.5 degrees Fahrenheit, and additional compatible Ebola Virus Disease symptoms Patient denies exposure to infectious person Patient denies travel to an Ebola-affected area in the 21 days before illness onset No symptoms or risks identified at this time. ROS: 15:20 Constitutional: Negative for fever, chills, and weight loss, Cardiovascular: Negative ma2 for chest pain, palpitations, and edema, Respiratory: Negative for shortness of breath, cough, wheezing, and pleuritic chest pain, Abdomen/GI: Negative for abdominal pain, nausea, diarrhea, and constipation. 15:20 : Positive for vaginal bleeding, Negative for hematuria, burning with urination, missed period. 15:20 All other systems are negative. Exam: 15:20 Constitutional: This is a well developed, well nourished patient who is awake, alert, ma2 and in no acute distress. Chest/axilla: Normal chest wall appearance and motion. Nontender with no deformity. No lesions are appreciated. Cardiovascular: Regular rate and rhythm with a normal S1 and S2. No gallops, murmurs, or rubs. Normal PMI, no JVD. No pulse deficits. Respiratory: Lungs have equal breath sounds bilaterally, clear to auscultation and percussion. No rales, rhonchi or wheezes noted. No increased work of breathing, no retractions or nasal flaring. Abdomen/GI: Soft, non-tender, with normal bowel sounds. No distension or tympany. No guarding or rebound. No evidence of tenderness throughout. MS/ Extremity: Pulses equal, no cyanosis. Neurovascular intact. Full, normal range of motion. Neuro: Awake and alert, GCS 15, oriented to person, place, time, and situation. Cranial nerves II-XII grossly intact. Motor strength 5/5 in all extremities. Sensory grossly intact. Cerebellar exam normal. Normal gait. Vital Signs: 14:12 BP 124 / 82; Pulse 91; Resp 16; Temp 98; Pulse Ox 100% ; Weight 69.4 kg; Height 4 ft. sv 11 in. (149.86 cm); Pain 0/10; 14:12 Body Mass Index 30.90 (69.40 kg, 149.86 cm) sv MDM: 15:13 Patient medically screened. ma2 15:20 Differential diagnosis: ectopic . pr2 15:52 Data reviewed: vital signs, nurses notes. pr2 15:56 Counseling: I had a detailed discussion with the patient and/or guardian regarding: the [facility] historical points, exam findings, and any diagnostic results supporting the discharge/admit diagnosis, the presence of at least one elevated blood pressure reading (>120/80) during this emergency department visit, the need for outpatient follow up. 11/11 14:24 Order name: Urine Dipstick--Ancillary (enter results); Complete Time: 15:52 sv 11/11 14:24 Order name: Urine --Ancillary (enter results); Complete Time: 15:52 sv 11/11 15:14 Order name: Quantitative Hcg [facility] 11/11 15:14 Order name: Abo/rh Typing [facility] 11/11 15:14 Order name: Basic Metabolic Panel [facility] 11/11 15:14 Order name: CBC with Diff [facility] 11/11 15:14 Order name: Urine Test (obtain specimen); Complete Time: 16:17 [facility] 11/11 15:14 Order name: IV Saline Lock; Complete Time: 16:23 [facility] 11/11 15:14 Order name: Labs collected and sent; Complete Time: 16:23 [facility] 11/11 15:14 Order name: NPO; Complete Time: 16: [facility] 11/11 15:14 Order name: Urine Dipstick-Ancillary (obtain specimen); Complete Time: 16:17 Administered Medications: No medications were administered Point of Care Testing: Urine : 16:25 hCG Reading: Negative; ls4 Disposition: 11/11/18 15:57 Discharged to Home. Impression: Other abnormal uterine and vaginal bleeding. - Condition is Stable. - Medication Reconciliation Form, Thank You Letter, Antibiotic Education, Prescription Opioid Use form. - Follow up: Private Physician; When: Tomorrow; Reason: Continuance of care. Signatures: Dispatcher [employer] [facility] Luma aGviria, RN RN Alexsander Biswas MD MD ma2 Laura Roldan RN RN ls4 Corrections: (The following items were deleted from the chart) 15:51 15:15 OB Complete+US.RAD.BRZ ordered. [facility] 16:26 15:57 11/11/2018 15:57 Discharged to Home. Impression: Other abnormal uterine and ls4 vaginal bleeding. Condition is Stable. Forms are Medication Reconciliation Form, Thank You Letter, Antibiotic Education, Prescription Opioid Use. Follow up: Private Physician; When: Tomorrow; Reason: Continuance of care. ma2
[2018-11-11 16:32] LABS: BUN Blood Urea Nitrogen 14 mg/dL (7-18); Bicarbonate 29 mmol/L (21-32); Glucose Level 89 mg/dL (74-106); Potassium 3.9 mmol/L (3.5-5.1); Sodium Level 140 mmol/L (136-145)
[2018-11-11 16:42] LABS: HCG, Quantitative < 1 mIU/mL (1-3)
== END 2018-11-11 16:26 | disposition home or self-care (01) ==
LOC: ER 14:02
DX: O20.9 Hemorrhage in early pregnancy, unspecified (principal); N93.9 Abnormal uterine and vaginal bleeding, unspecified
CPT/HCPCS: 36415; 80048; 81003; 81025; 84702; 85025; 86900; 86901

== ENCOUNTER 2019-02-23 22:41 | Emergency (ER) | payer SELFPAY ==
--- OUTSIDE RECORDS SUMMARY | 2019-02-23 23:05 | XMS REPORT ---
:1995 [facility] [address] [place] [address] Dr. Herbert. [address] [place] [id number] Care Team Providers Name Role Phone Unavailable Unavailable Unavailable Problems This patient has no known problems. Allergies, Adverse Reactions, Alerts This patient has no known allergies or adverse reactions. Medications This patient has no known medications.
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
--- NOTE | 2019-02-24 08:19 | RAD REPORT ---
EXAM DESCRIPTION: RAD - Elbow Left 3 View - 02/23/2019 11:02 pm CLINICAL HISTORY: PAIN COMPARISON: No comparisons FINDINGS: No fracture or dislocation is seen.
== END 2019-02-24 00:49 | disposition home or self-care (01) ==
LOC: ER 22:41
DX: S50.02XA Contusion of left elbow, initial encounter (principal); S53.402A Unspecified sprain of left elbow, initial encounter; Y04.0XXA Assault by unarmed brawl or fight, initial encounter; Z88.5 Allergy status to narcotic agent
CPT/HCPCS: 99284

== ENCOUNTER 2019-12-01 16:29 | Emergency (ER) | payer SELFPAY ==
--- OUTSIDE RECORDS SUMMARY | 2019-12-01 16:31 | XMS REPORT ---
:1995 [facility] Address [address] [place] [address] Dr. Hodge [address] [place] [id number] Care Team Providers Name Role Phone Unavailable Unavailable Unavailable Problems This patient has no known problems. Allergies, Adverse Reactions, Alerts This patient has no known allergies or adverse reactions. Medications This patient has no known medications.
--- OUTSIDE RECORDS SUMMARY | 2019-12-01 16:31 | XMS REPORT | Summary of Care ---
:1995 Author Organization [facility] - Health Address [address] [place] [address] Care Team Providers Name Role Phone Alejandro Miranda ALAS Primary Care Provider Encounter Details Date Type Department Care Team Description 06/17/2019 Orders Only [facility] Doctor Unassigned, No [address] [facility] Name [place] [address] [place] [address] Allergies Active Allergy Reactions Severity Noted Date Comments Codeine Hives 02/27/2017 documented as of this encounter (statuses as of 06/17/2019) Medications Medication Sig Dispensed Refills Start Date End Date Status norgestimate-ethinyl Take 1 tablet by 3 Package 1 05/24/2018 Active estradiol (ORTHO mouth daily. TRI-CYCLEN LO, 28,) 0.18/0.215/0.25 mg-25 mcg tabletIndications: Irregular menstrual cycle documented as of this encounter (statuses as of 06/17/2019) Active Problems Problem Noted Date Well woman exam 09/21/2017 Contraceptive management 09/21/2017 Over weight 09/21/2017 documented as of this encounter (statuses as of 06/17/2019) Resolved Problems Problem Noted Date Resolved Date Miscarriage 11/10/2016 09/21/2017 Other general counseling and advice for contraceptive 11/10/2016 09/21/2017 management Missed 10/09/2016 09/21/2017 Rubella non-immune status, antepartum 09/07/2016 09/21/2017 Supervision of high risk , antepartum 09/06/2016 09/21/2017 Flu vaccine need 09/06/2016 09/21/2017 Overview: Received today Surveillance of previously prescribed contraceptive pill 03/30/20162015 documented as of this encounter (statuses as of 06/17/2019) Immunizations Name Administration Dates Next Due Influenza Virus Vaccine Quad IM 3+ YRS 09/06/2016 Tdap 10/22/2009 documented as of this encounter Social History Tobacco Use Types Packs/Day Years Used Date Never Smoker Smokeless Tobacco: Never Used Alcohol Use Drinks/Week oz/Week Comments No 0 Standard drinks or equivalent 0.0 Sex Assigned at Date Recorded Not on file Job Start Date Occupation Industry Not on file Not on file Not on file Travel History Travel Start Travel End No recent travel history available. documented as of this encounter Last Filed Vital Signs Not on filedocumented in this encounter Plan of Treatment Health Maintenance Due Date Last Done Comments MENINGOCOCCAL B VACCINES (1 2005 of 2 - Risk Bexsero 2-dose series) HPV VACCINES (1 - Female 2010 3-dose series) INFLUENZA VACCINE (#1) 2019 09/06/2016 PAP SMEAR 09/06/2019 09/06/2016 DTaP,Tdap,and Td Vaccines (2 10/22/2019 10/22/2009 - Td) CHLAMYDIA SCREENING 12/13/2019 12/13/2018, 05/24/2018, 09/21/2017, Additional history exists PNEUMOCOCCAL 0-64 YEARS Aged Out No longer eligible COMBINED SERIES based on patient's age to complete this topic documented as of this encounter Procedures Procedure Name Priority Date/Time Associated Diagnosis Comments ASSIGNMENT OF BENEFITS Routine 06/17/2019 12:51 PM CDT documented in this encounter Results Not on filedocumented in this encounter Insurance Payer Benefit Plan Subscriber ID Effective Phone Address Type / Group Dates [facility] xxxxxxxxx 2017-Pres [phone] Medicaid WOMEN ent [address] [place] [address] documented as of this encounter Advance Directives Name Relationship Healthcare Agent Relationship Communication Ligiacandelario ArteagaZhong Grandparent Primary healthcare agent
--- OUTSIDE RECORDS SUMMARY | 2019-12-01 16:32 | XMS REPORT | Summary of Care ---
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 Oral contraception initial prescription; [address] BMI 30.0-30.9,adult; [facility] A Need for HPV vaccination; [id number] [place] [address] Screen for STD (sexually transmitted disease) [phone] Allergies Active Allergy Reactions Severity Noted Date [...] 06/17/2019) Immunizations Name Administration Dates Next Due HPV9 06/17/2019 Influenza Virus Vaccine Quad IM 3+ YRS [...] of this encounter Last Filed Vital Signs Vital Sign Reading Time Taken Comments Blood Pressure 112/72 06/17/2019 1:08 PM CDT Pulse 66 06/17/2019 1:08 PM CDT Temperature 36.6 C (97.9 F) 06/17/2019 1:08 PM CDT Respiratory Rate 16 06/17/2019 1:08 PM CDT Oxygen Saturation - - Inhaled Oxygen Concentration - - Weight 69.6 kg (153 lb 7 oz) 06/17/2019 1:08 PM CDT Height 149.9 cm (4' 11") 06/17/2019 1:08 PM CDT Body Mass Index 30.99 06/17/2019 1:08 PM CDT documented in this encounter Patient Instructions Patient InstructionsAnabela Hurley LVN - 06/17/2019 12:45 PM CDT Clinical Breast Exam Many health organizations recommend a yearly clinical breast exam. This exam may be done by a site director, family healthcare provider, nurse practitioner, nurse technical communicator, or specially trained nurse. Yearly breast exams help tomake surethat breast conditions are found early. Your healthcare providers role A healthcare professional knows the tests and follow-up care needed if a problem is found. Your clinical exam is also a great time to ask questions about breast self-exams. You can find out if yourechecking your breasts in the best way. Or you may want to ask how , breast implants, or breast reduction surgery affect the way you should check your breasts. Diagnostic tests If a clinical exam reveals a breast change, you may have other tests to find out more. These tests may include: Mammography. A low-dose X-ray of your breast tissue. Ultrasound. An imaging test that uses sound waves to create images of your breast. Biopsy. A small amount of breast tissue is removed by needle or by a cut ( incision). The tissue is then checked under a microscope. Guidelines for having clinical breast exams The [employer] [employer] recommends that starting at age 29, you should have a clinical breast exam every 1 to 3 years. After age 40, have a clinical breast exam each year. If youre at higher risk for breast cancer, you may need exams more often. Risk factors for breast cancer may include: Being over 50 or postmenopausal Having a family history of breast cancer Having the BRCA1 or BRCA2 gene mutation or certain other gene mutations Having more menstrual periods due to starting menstruation early(before age 12) or having a late menopause (after age 55) Having no pregnancies Having a first after age 30 Being obese Having a history of radiation treatment to your chest area Exposure to [place] during your mother's Not being active Drinking too much alcohol Having dense breast tissue Taking hormone therapy after menopause Other health organizations have different recommendations. Talk with your healthcare provider about what is best for you. Date Last Reviewed: 05/22/201719991634-7287 [employer]. [address] [place] [address]. All rights reserved. This information is not intended as a substitute for professional medical care. Always follow your healthcare professional's instructions. Breast Health: Breast Self-Awareness What is breast self-awareness? Breast self-awareness is knowing how your breasts normally look and feel. Your breasts change as yougo through different stages of your life. So its important to learn what is normal for your breasts. Breast self-awareness helps you notice any changes in your breasts right away. Report any changesto your healthcare provider. Why is breast self-awareness important? Many experts now say that women should focus on breast self-awareness instead of doing a breast self-examination (BSE). These experts include the [place] [employer], the U.S. Preventive Services Task Force, and the [place] [employer]. Some experts even advise notteaching women to do a BSE. Thats because research hasnt shown a clear benefit to doing BSEs. Breast self-awareness is different than a BSE. Breast self-awareness isnt about following a certain method and schedule. Its about knowing what's normal for your breasts. That way you can notice even small changes right away. If you see any changes, report them to your healthcare provider. Changes to look for Call your healthcare provider if you find any changes in your breasts that concern you. These changes may include: A lump Nipple discharge other than breastmilk, especially a bloody discharge Swelling A change in size or shape Skin irritation, such as redness, thickening, or dimpling of the skin Swollen lymph nodes in the armpit Nipple problems, such as pain or redness If you find a lump Contact your provider if you find lumpiness in one breast, feel something different in the tissue, or feel a definite lump. Sometimes lumpiness may be due to menstrual changes. But there may be reason for concern. Your provider may want to see you right away if you have: Nipple discharge that is bloody Skin changes on your breast, such as dimpling or puckering Its normal to be upset if you find a lump. But its important to contact your provider right away. Remember that most breast lumps are benign. This means they are not cancer. Date Last Reviewed: 05/22/201719991925-2710 [employer]. [address] [place] [address], [place] [address]. All rights reserved. This information is not intended as a substitute for professional medical care. Always follow your healthcare professional's instructions. Prevention Guidelines,Women Ages 18 to 39 Screening tests and vaccines are an important part of managing your health. A screening test is doneto find possible disorders or diseases in people who don' t have any symptoms. The goal is to find a disease early so lifestyle changes can be made and you can be watched more closely to reduce the riskof disease, or to detect it early enough to treat it most effectively. Screening tests are not considered diagnostic, but are used to determine if more testing is needed. Health counseling is essential, too. Below are guidelines for these, for women ages 18 to 39. Talk with your healthcare provider tomake sure youre up-to- date on what you need. Screening Who needs it How often Alcohol misuse All women in this age group At routine exams Blood pressure All women in this age group Yearly checkup if your blood pressure is normal Normal blood pressure is less than 120/80 mm Hg If your blood pressure reading is higher than normal, follow the advice of your healthcare provider Breast cancer All women in this age group should talk with their healthcare providers about the needfor clinical breast exams (CBE)1 Clinical breast exam every 3 years1 Cervical cancer Women ages 21 and older Women between ages 21 and 29 should have a Pap test every 3 years; women between ages 30 and 65 are advised to have a Pap test plus an HPV test every 5 years Chlamydia Sexually active women ages 25 and younger, and women at increased risk for infection (suchas having multiple sex partners) Every year if you're at risk or have symptoms Depression All women in this age group At routine exams Type 2 diabetes, prediabetes All women with no symptoms who are overweight or obese and have 1 or more other risk factors for diabetes At least every 3 years. Also, testing for diabetes during after the 24th week. Type 2 diabetes, prediabetes All women diagnosed with gestational diabetes Lifelong testing every 3 years Type 2 diabetes All women with prediabetes Every year Gonorrhea Sexually active women at increased risk for infection At routine exams Hepatitis C Anyone at increased risk At routine exams HIV All women should be tested at least once for HIV between the ages of 13 and 64 At routine exams.Those with risk factors for HIV should be tested at least annually. Obesity All women in this age group At routine exams Syphilis Women at increased risk for infection should talk with their healthcare provider At routineexams Tuberculosis Women at increased risk for infection should talk with their healthcare provider Ask your healthcare provider Vision All women in this age group At least 1 complete exam in your 20s, and 2 in your 30s Vaccine2 Who needs it How often Chickenpox (varicella) All women in this age group who have no record of this infection or vaccine 2doses; the second dose should be given 4 to 8 weeks after the first dose Hepatitis A Women at increased risk for infection should talk with their healthcare provider 2 dosesgiven at least 6 months apart Hepatitis B Women at increased risk for infection should talk with their healthcare provider 3 dosesover 6 months; second dose should be given 1 month after the first dose; the third dose should be given at least 2 months after the second dose and at least 4 months after the first dose Haemophilus influenzaeType B (HIB) Women at increased risk for infection should talk with their healthcare provider 1 to 3 doses Human papillomavirus (HPV) All women in this age group up to age 26 3 doses; the second dose should be given 1 to 2 months after the first dose and the third dose given 6 months after the first dose Influenza (flu) All women in this age group Once a year Measles, mumps, rubella (MMR) All women in this age group who have no record of these infections or vaccines 1 or 2 doses Meningococcal Women at increased risk for infection should talk with their healthcare provider 1 or more doses Pneumococcal conjugate vaccine (PCV13)and pneumococcal polysaccharide vaccine(PPSV23) Women at increased risk for infection should talk with their healthcare provider PCV13: 1 dose ages 19 to 65 (protects against 13 types of pneumococcal bacteria) PPSV23: 1 to2 doses through age 64, or 1 dose at 65 or older (protects against 23 types of pneumococcal bacteria) Tetanus/diphtheria/pertussis (Td/Tdap) booster All women in this age group Td every 10 years, or a one-time dose of Tdap instead of a Td booster after age 18 , then Td every 10 years Counseling Who needs it How often BRCA gene mutation testing for breast and ovarian cancer susceptibility Women with increased risk for having gene mutation When your risk is known Breast cancer and chemoprevention Women at high risk for breast cancer When your risk is known Diet and exercise Women who are overweight or obese When diagnosed, and then at routine exams Domestic violence Women at the age in which they are able to have children At routine exams Sexually transmitted infection prevention Women who are sexually active At routine exams Skin cancer Prevention of skin cancer in fair-skinned adults At routine exams Use of tobacco and the health effects it can cause All women in this age group Every visit 1 According to the ACS, women ages 20 to 39 years should have a clinical breast exam (CBE) as part of their routine health exam every 3 years. Breast self- exams are an option for women starting in their 20s.But the USPSTF does not recommend CBE. Date Last Reviewed: 07/22/201719995593-9437 [employer]. [address] [place] [address], [place] [address]. All rights reserved. This information is not intended as a substitute for professional medical care. Always follow your healthcare professional's instructions. Understanding STDs When it comes to sex, nothing is risk-free. Any sexual contact with the penis, vagina, anus, or mouth can spread a sexually transmitted disease (STD). The only sure way to prevent STDs is abstinence (not having sex). But there are ways to make sex safer. Use a latex condom each time you have sex. And choose your partner wisely. Use condoms for safer sex If you have sex, latex condoms provide the best protection against STDs. Latex condoms stop the exchange of body fluids that carry certain STDs. They also limit contact with affected skin. Be aware though, a condom doesnt cover all skin. So, affected skin that is not covered can still transfer disease. But you re safer with a condom than without one. Use a condom even if you use other control. While control methods like the pill or IUD help prevent , they do not protect against STDs. Choose the right condom Condoms made of latex prevent disease best. If youre allergic to latex, use polyurethane condoms instead. Male condoms fit over the penis. Female condoms line the vagina. Before buying a condom, read the label to be sure it prevents disease. Some novelty condoms dont. The right lubricant helps Buy lubricated condoms or use lubricant. This provides greater comfort and reduces the risk of condom breakage. Use only water-based lubricants. Dont use oil, lotion, or petroleum jelly. They can weaken the condom, causing breakage. Also, you may want to choose lubricants without nonoxynol-9. Its now known that this spermicide does not prevent disease and may cause irritation. Use condoms correctly For condoms to work, they must be used the right way. Keep these tips in mind: Use a new latex condom each time you have sex. Slip the condom on the penis before any contact ismade. When ready to withdraw, hold the rim of the condom as the penis pulls out. This prevents the condom from slipping off. Check the expiration date before using a condom. Dont store condoms in places that can get hot, such as a car or a wallet that is carried in a back pocket. Get to know your partner Safer sex is a process. It involves getting to know your partner and making informed choices. Ask each other how many partners you have had in the past, and how many you have now. Find out if either ofyou has an STD. If you decide to have sex, use a condom each time. Dont stop using condoms unlessyoure sure neither of you has other partners and youve both been tested to confirm you donthave STDs. Then stay free of disease by having sex only with each other (monogamy). Keep your cool Dont let alcohol or drugs cloud your judgment. They could lead you to have sex with someone you wouldnt have chosen if you were sober. Or, you might forget to use a condom. If you do plan to havesex, keep a latex condom with you. Dont wait until youre in the heat of passion to try to findone. Consider abstinence The only way to be sure you wont get an STD is to abstain from sex. Abstinence is a choice that many people make at some point in their lives. Maybe you want to wait until you are sure youre ready before you have sex. Maybe youd like a break from the responsibilities of sex for a while. Or maybe you just want to know your partner better before taking the next step. Abstinence is a choice youcan make now to protect your future. Date Last Reviewed: 09/21/201619996703-1474 [employer]. [address] [place] [address], [place] [address]. All rights reserved. This information is not intended as a substitute for professional medical care. Always follow your healthcare professional's instructions. Understanding HIV and AIDS If you know how HIV (human immunodeficiency virus) can get into your body and what happens once its there, youll be better prepared to protect yourself or others against this virus. A person withHIV can look and feel perfectly healthy. But that person can give HIV to others as soon as he or sheis infected with the virus. Note: Having unsafe or unprotected sex or sharing needles put you at risk for HIV. Talk with your healthcare provider about ways to protect yourself or a loved one from getting HIV. How HIV enters the body HIV is carried in semen, vaginal fluid, blood, and breast milk. During sex, HIV can enter the body through the fragile tissue that lines the vagina, penis, anus,and mouth. During drug use, tattooing, or body piercing, the virus can enter the bloodstream through a shared needle. A mother who has HIV can infect her child during childbirth and through . How HIV infection progresses After HIV enters the body, it attacks the immune system in stages. A person with HIV can infect others once the virus enters the bloodstream. HIV with no symptoms. A person with HIV may have no symptoms for years. A positive blood test for HIV antibodies 6 weeks to 6 months after HIV enters the body may be the only sign of infection. HIV with symptoms.Some people develop an illness similar to mononucleosis (or "mono") 2 to 4 weeksafter the virus enters the body. Symptoms may include swollen lymph glands, chills, fever, night sweats, weakness, weight loss, skin rashes, mouth ulcers, or sore throat. Symptoms may be mild at first and then slowly go away. In a very few individuals, symptoms may get progressively worse and last forlonger and longer periods. AIDS. AIDS is the last stage of HIV infection. Diseases and cancers begin to overcome the body. It is these diseases, not the virus itself, that cause . HIV may also attack the brain and nervous system, causing seizures and loss of memory and body movement. Date Last Reviewed: 08/22/201619990500-5134 [employer]. [address] [place] [address], [place] [address]. All rights reserved. This information is not intended as a substitute for professional medical care. Always follow your healthcare professional's instructions. Eating Heart-Healthy Foods Eating has a big impact on your heart health. In fact, eating healthier can improve several of your heart risks at once. For instance, it helps you manage weight, cholesterol, and blood pressure. Here are ideas to help you make heart- healthy changes without giving up allthe foods and flavors you love. Getting started Talk with your healthcare provider about eating plans, such as the DASH or Mediterranean diet. You may also be referred to a dietitian. Change a few things at a time. Give yourself time to get used to a few eating changes before adding more. Work to create a tasty, healthy eating plan that you can stick to for the rest of your life. Goals for healthy eating Below are some tips to improve your eating habits: Limit saturated fats and trans fats. Saturated fats raise your levels of cholesterol, so keep these fats to a minimum. They are found in foods such as fatty meats, whole milk, cheese, and palm and coconut oils. Avoid trans fats because they lower good cholesterol as well as raise bad cholesterol. Trans fats are most often found in processed foods. Reduce sodium (salt) intake. Eating too much salt may increase your blood pressure. Limit your sodium intake to 2,300 milligrams (mg) per day(the amount in 1 teaspoon of salt), or less if your healthcare provider recommends it. Dining out less often and eating fewer processed foods are two great ways to decrease the amount of salt you consume. Managing calories. A calorie is a unit of energy. Your body smalls calories for fuel, but if you eat more calories than your body smalls, the extras are stored as fat. Your healthcare provider can help you create a diet plan to manage your calories. This will likely include eating healthier foods as well as exercising regularly. To help you track your progress, keep a diary to record what you eat and how often you exercise. Choose the right foods Aim to make these foods gabriel of your diet. If you have diabetes, you may have different recommendations than what is listed here: Fruits and vegetables provide plenty of nutrients without a lot of calories. At meals, fill half your plate with these foods. Split the other half of your plate between whole grains and lean protein. Whole grains are high in fiber and rich in vitamins and nutrients. Good choices include whole-wheat bread, pasta, and brown rice. Lean proteins give you nutrition with less fat. Good choices include fish, skinless chicken, and beans. Low-fat or nonfat dairy provides nutrients without a lot of fat. Try low-fat or nonfat milk, cheese, or yogurt. Healthy fats can be good for you in small amounts. These are unsaturated fats , such as olive oil,nuts, and fish. Try to have at least 2 servings per week of fatty fish, such as salmon, sardines, mackerel, rainbow trout, and albacore tuna. These contain omega-3 fatty acids, which are good for your heart. Flaxseed is another source of a heart-healthy fat. More on heart-healthy eating Read food labels Healthy eating starts at the grocery store. Be sure to pay attention to food labels on packaged foods. Look for products that are high in fiber and protein, and low in saturated fat, cholesterol, and sodium. Avoid products that contain trans fat. And pay close attention to serving size. For instance, if you plan to eat two servings, double all the numbers on the label. Prepare food right A lopez part of healthy cooking is cutting down on added fat and salt. Look on the internet for lower-fat, lower-sodium recipes. Also, try these tips: Remove fat from meat and skin from poultry before cooking. Skim fat from the surface of soups and sauces. Broil, boil, bake, steam, grill, and microwave food without added fats. Choose ingredients that spice up your food without adding calories, fat, or sodium. Try these items: horseradish, hot sauce, lemon, mustard, nonfat salad dressings, and vinegar. For salt-free herbs and spices, try basil, cilantro, cinnamon, pepper, and rachele. Date Last Reviewed: 07/22/201719999780-7712 The [employer]. [address] [place] [address]. All rights reserved. This information is not intended as a substitute for professional medical care. Always follow your healthcare professional's instructions. Understanding USDA MyPlate The USDA (U.S. Department of Agriculture) has guidelines to help you make healthy food choices. These are called MyPlate. MyPlate shows the food groups that make up healthy meals using the image of a place setting. Before you eat, think about the healthiest choices for what to put onto your plate or into your cup or bowl. To learn more about building a healthy plate, visit www.choosemyplate.gov. The food groups Fruits. Any fruit or 100% fruit juice counts as part of the Fruit Group. Fruits may be fresh, canned, frozen, or dried, and may be whole, cut-up, or pureed. Make half your plate fruits and vegetables. Vegetables. Any vegetable or 100% vegetable juice counts as a member of the Vegetable Group. Vegetables may be fresh, frozen, canned, or dried. They can be served raw or cooked and may be whole, cut-up, or mashed. Make half your plate fruits and vegetables. Grains. All foods made from grains are part of the Grains Group. These include wheat, rice, oats,cornmeal, and barley such as bread, pasta, oatmeal, cereal, tortillas, and grits. Grains should be no more than a quarter of your plate. At least half of your grains should be whole grains. Protein. This group includes meat, poultry, seafood, beans and peas, eggs, processed soy products(like tofu), nuts (including nut butters), and seeds. Make protein choices no more than a quarter ofyour plate. Meat and poultry choices should be lean or low fat. Dairy. All fluid milk products and foods made from milk that contain calcium , like yogurt and cheese, are part of the Dairy Group. (Foods that have little calcium, such as cream, butter, and cream cheese, are not part of the group.) Most dairy choices should be low-fat or fat-free. Oils. These are fats that are liquid at room temperature. They include canola , corn, olive, soybean, and sunflower oil. Foods that are mainly oil include mayonnaise, certain salad dressings, and soft margarines. You should have only 5 to 7 teaspoons of oils a day. You probably already get this muchfrom the food you eat. Date Last Reviewed: 05/22/201719996334-1690 [employer]. [address] [place] [address]. All rights reserved. This information is not intended as a substitute for professional medical care. Always follow your healthcare professional's instructions. documented in this encounter Progress Notes Miranda Allen, BISHOP - 06/17/2019 12:45 PM CDT Chief complaint: Chief Complaint Patient presents with Well Woman Exam HPI Here for Well Woman Exam and contraceptive management. Patient desires OCPs for contraception. Was on OCPs previously, but stopped about 2 months ago. Has irregular menses and has been having unprotected intercourse. Reviewed risks/ benefits/alternative contraceptive methods. Denies cramps, vaginal discharge, genital lesions, breast pain and vaginal pain. Desires STD testing. Pt reports no past or present history of physical, sexual, and emotional abuse. Rubella: nonimmune, resources given VZV: immune BMI: Body mass index is 30.99 kg/m. Td: 2009 Pap Smear: 08/2016, due this year Gardasil: not completed, desires today Mammogram:N/A Guaiac:N/A Colonoscopy:N/A Histories OB History Para Term AB Living 1 0 0 0 1 0 SAB TAB Ectopic Multiple Live Births 1 0 0 0 # Outcome Date GA Lbr Mario/2nd Weight Sex Delivery Anes PTL Lv 1 SAB 09/2016 8w0d Past Medical History: Diagnosis Date Anxiety 2014 Not on meds Menstrual disorder 2016 Irregular cycles; may skip months Family History Problem Relation Age of Onset Arthritis Mother Arthritis Maternal Grandmother Asthma Maternal Grandmother Heart Maternal Grandmother heart murmur Diabetes Maternal Grandfather Hypertension Maternal Grandfather Other - see comments Maternal Aunt pcos Breast Cancer NoFHx defects NoFHx Colon Cancer NoFHx Ovarian Cancer NoFHx Uterine Cancer NoFHx Cancer NoFHx Depression NoFHx Genetic NoFHx High cholesterol NoFHx Mental retardation NoFHx Neurological NoFHx Osteoporosis NoFHx Psychiatry NoFHx Family Status Relation Name Status Mo (Not Specified) MGMo (Not Specified) MGFa (Not Specified) MAunt (Not Specified) NoFHx (Not Specified) History reviewed. No pertinent surgical history. Social History Socioeconomic History Marital status: Single Spouse name: Not on file Number of children: Not on file Years of education: Not on file Highest education level: Not on file Occupational History Not on file Social Needs Financial resource strain: Not on file Food insecurity: Worry: Not on file Inability: Not on file Transportation needs: Medical: Not on file Non-medical: Not on file Tobacco Use Smoking status: Never Smoker Smokeless tobacco: Never Used Substance and Sexual Activity Alcohol use: No Alcohol/week: 0.0 oz Drug use: No Sexual activity: Yes Partners: Male control/protection: None Comment: Last intercourse: 06/05/2019 Lifestyle Physical activity: Days per week: Not on file Minutes per session: Not on file Stress: Not on file Relationships Social connections: Talks on phone: Not on file Gets together: Not on file Attends confucianist service: Not on file Active member of club or organization: Not on file Attends meetings of clubs or organizations: Not on file Relationship status: Not on file Intimate partner violence: Fear of current or ex partner: Not on file Emotionally abused: Not on file Physically abused: Not on file Forced sexual activity: Not on file Other Topics Concern Not on file Social History Narrative Pt denies current or past physical, sexual or emotional abuse. Patient lives with boyfriend, patient feels safe at home. Social History Substance and Sexual Activity Sexual Activity Yes Partners: Male control/protection: None Comment: Last intercourse: 06/05/2019 Labs I have reviewed the patient's labs. and Labs are pending. Radiology No new radiology. Allergies Beena is allergic to codeine. Medications Beena has a current medication list which includes the following prescription(s ): norgestimate-ethinyl estradiol. Review of Systems Constitutional: Negative. HENT: Negative. Eyes: Negative. Respiratory: Negative. Breasts: Negative. Cardiovascular: Negative. Gastrointestinal: Negative. Genitourinary: Negative. Musculoskeletal: Negative. Skin: Negative. Neurological: Negative. Psychiatric/Behavioral: Negative. Endocrine: Endocrine negative BP 112/72 (BP Location: Right arm, Patient Position: Sitting, BP CUFF SIZE: Adult Small) | Pulse 66 | Temp 36.6 C (97.9 F) (Oral) | Resp 16 | Ht 4' 11" (1.499 m) | Wt 153 lb 7 oz (69.6 kg) | LMP 04/25/2019 (Approximate) | BMI 30.99 kg/m Pregravid BMI: Could not be calculated Physical Exam Vitals reviewed. Constitutional: She is oriented to person, place, and time. She appears well- developed and well-nourished. Her body habitus is normal. Neck: No thyroid nodules and no thyromegaly palpated. Cardiovascular: Regular rate and rhythm. No murmur auscultated. Pulmonary/Chest: Breath sounds clear to auscultation. Normal inspiratory effort. Abdominal: Abdomen is soft. No mass palpated. No tenderness present. There is no hepatosplenomegaly. Neuro/Psychiatric: She has a normal mood and affect. She is oriented to person, place, and time. Skin: Skin normal. No lesion and no rash present. Tattoos present Genitourinary Comments: Chaperoned by: Anna Schultz MA Breast: Right breast exhibits no mass, no nipple discharge and no tenderness. Left breast exhibits no mass, no nipple discharge and no tenderness. Normal left breast and normal right breast External genitalia: Normal external genitalia appropriate for age. No labial lesion. Bladder: No tenderness. Normal bladder Vagina:Normal vagina. No lesion inspected. No abnormal vaginal discharge found. Cervix: Normal cervix. No lesion. No tenderness and no discharge present. Uterus: Uterus is normal size, normal position and non-tender. Normal uterus Adnexa: Right adnexa without tenderness. Left adnexa without tenderness. Normal left adnexa and normal right adnexa Assessment/Plan 1. Well woman exam CBE performed, educated patient regarding self breast awareness. SBE monthly. Patient advised mammograms to begin at age 40 Encourage green leafy vegetables, lean meats and fruit in diet. Avoid fatty, fried, sugary foods. Increase H2O intake (1/2 body weight in ozs). Exercise 30 minutes daily x 7 days/week as tolerated. Follow up 1 year - PAP Smear-Liquid Based 2. Oral contraception initial prescription D/w pt at length various BCMs including OCPs, Patch, Depo Provera, vaginal rings , condoms, implants and iuds. We discussed the risk/benefits/side effects of each. After discussion, pt desires to proceed with OCPs. UPT negative today. Patient's last menstrual period was 04/25/2019 (approximate). Pt instructed to abstain x 2 weeks and RTC for 2nd UPT and OCP start. - POCT TEST 3. BMI 30.0-30.9,adult The patient is asked to make an attempt to improve diet and exercise patterns to aid in medical management of this problem. 4. Need for HPV vaccination Administered today. VSS provided. - GARDASIL 9 (HPV 9V) VACCINE; Standing - GARDASIL 9 (HPV 9V) VACCINE 5. Screen for STD (sexually transmitted disease) Reviewed safe sex practices - GC & CHLAMYDIA AMPLIFIED ASSAY - TRICHOMONAS AMPLIFIED ASSAY Return to clinic in 2 weeks. Discussed treatment options. Reviewed patient instructions and provided printed copy. This visit did not involve counseling and coordination that comprised more than 50% of the visit time. Anabela Smith LVN - 06/17/2019 12:45 PM CDTPt here for HPV #1 VIS given and reviewed with patient. Vaccine given to right deltoid via IM, pt tolerated well. The site was cleaned with alcohol and bandage was applied. ER warnings given and RTC in 1 month for next HPV vaccine. Pt verbalized understanding. Byron Becker RN - 06/17/2019 12:45 PM CDT23 year old presents to the clinic for wwe. 1) Previous BCM: None 2) Desired BCM: OCP 3) LMP: 04/25/2019 4) Last [place]: 06/05/2019, no condom 5) Last Pap: 09/06/2016 Results: Negativee 6) Tdap: 2009 7) Gardasil: Never completed per patient report. 8) C/O: Irregular cycles 9) Patient denies history of physical, emotional, or sexual abuse. Patient states that she currently feels safe at home. BYRON PLASENCIA RN 06/17/2019 1:15 PM documented in this encounter Plan of Treatment Date Type Specialty Care Team Description [facility] Name Type Priority Associated Diagnoses Date/Time GC & CHLAMYDIA AMPLIFIED LAB Routine Screen for STD (sexually 06/17/2019 1 :39 PM ASSAY transmitted disease) CDT TRICHOMONAS AMPLIFIED LAB Routine Screen for STD (sexually 06/17/2019 1: 39 PM ASSAY transmitted disease) CDT PAP Smear-Liquid Based LAB Routine Well woman exam 06/17/2019 1:39 PM CDT Name Type Priority Associated Diagnoses Order Schedule GARDASIL 9 (HPV 9V) IMMUNIZATION/IN Routine Need for HPV 3 Occurrences VACCINE JECTION vaccination starting 06/17/2019 until 12/17/2020, 1 completed Health Maintenance Due Date Last Done Comments HPV VACCINES (1 - Female 2010 3-dose series) INFLUENZA VACCINE (#1) 2019 09/06/2016 PAP SMEAR 09/06/2019 09/06/2016 DTaP,Tdap,and Td Vaccines 10/22/2019 10/22/2009 (2 - Td) CHLAMYDIA SCREENING 12/13/2019 12/13/2018, 05/24/2018, 09/21/2017, Additional history exists MENINGOCOCCAL B VACCINES (1 06/17/2020 Postponed from of 2 - Risk Bexsero 2-dose 2005 (Insurance / series) Financial) PNEUMOCOCCAL 0-64 YEARS Aged Out No longer eligible COMBINED SERIES based on patient's age to complete this topic documented as of this encounter Procedures Procedure Name Priority Date/Time Associated Diagnosis Comments GARDASIL 9 (HPV Routine 06/17/2019 1:42 Need for HPV 9V) VACCINE PM CDT vaccination POCT Routine 06/17/2019 1:26 Oral contraception Results for this TEST PM CDT initial prescription procedure are in the results section. documented in this encounter Results POCT TEST (06/17/2019 1:26 PM CDT) POCT PREG Negative On board controls acceptable Yes with C Line POCT PREG LOT # POCT PREG TEST DATE Specimen Urine - URINE, CLEAN CATCH documented in this encounter Visit Diagnoses Diagnosis Well woman exam - Primary Routine general medical examination at a health care facility Oral contraception initial prescription BMI 30.0-30.9,adult Body Mass Index 30.0-30.9, adult Need for HPV vaccination Need for prophylactic vaccination and inoculation against other viral diseases Screen for STD (sexually transmitted disease) Screening examination for venereal disease documented in this encounter Insurance Payer Benefit Plan Subscriber ID Effective Phone Address Type / Group Dates [facility] xxxxxxxxx 2017-Pres [phone] Medicaid WOMEN ent [address] [place] [address] documented as of this encounter Advance Directives Name Relationship Healthcare Agent Relationship Communication Ligiacandelario Zhong Grandparent Primary healthcare agent
--- OUTSIDE RECORDS SUMMARY | 2019-12-01 16:32 | XMS REPORT | Summary of Care ---
:1995 Author Organization [facility] Address [address] [place] [address] Care Team Providers Name Role Phone Miranda Allen Primary Care Provider Reason for Visit Reason Comments Results Encounter Details Date Type Department Care Team Description 11/28/2019 [facility] Results [address] [place] [address] [place] A [phone] [place] [address] Allergies Active Allergy Reactions Severity Noted Date Comments Codeine Hives 02/27/2017 documented as of this encounter (statuses as of 11/28/2019) Medications Medication Sig Dispensed Refills Start Date End Date Status norgestimate-ethinyl Take 1 tablet by 1 Package 2 09/10/2019 Active estradiol (ORTHO mouth daily. TRI-CYCLEN LO, 28,) 0.18/0.215/0.25 mg-25 mcg tabletIndications: Irregular menstrual cycle documented as of this encounter (statuses as of 11/28/2019) Active Problems Problem Noted Date Well woman exam 09/21/2017 Contraceptive management 09/21/2017 Over weight 09/21/2017 documented as of this encounter (statuses as of 11/28/2019) Resolved Problems Problem Noted Date Resolved Date Miscarriage 11/10/2016 09/21/2017 Other general counseling and advice for contraceptive 11/10/2016 09/21/2017 management Missed 10/09/2016 09/21/2017 Rubella non-immune status, antepartum 09/07/2016 09/21/2017 Supervision of high risk , antepartum 09/06/2016 09/21/2017 Flu vaccine need 09/06/2016 09/21/2017 Overview: Received today Surveillance of previously prescribed contraceptive pill 03/30/20162015 documented as of this encounter (statuses as of 11/28/2019) Immunizations Name Administration Dates Next Due HPV9 09/10/2019, 06/17/2019 Influenza Virus Vaccine Quad IM 3+ [...] filedocumented in this encounter Plan of Treatment Date Type Specialty Care Team Description 12/11/2019 Office Visit [facility] Dai Hicks, CNP [address] [place] [address] [phone] Health Maintenance Due Date Last Done Comments HPV VACCINES (3 - Female 01/09/2020 09/10/2019, 06/17/2019 3-dose series) CHLAMYDIA SCREENING 09/25/2020 09/25/2019, 09/10/2019, 06/17/2019, Additional history exists DTaP,Tdap,and Td Vaccines 11/25/2020 10/22/2009 Postponed from (2 - Td) 10/22/2019 (Refused) INFLUENZA VACCINE (#1) 2020 09/06/2016 Postponed from 06/22/2019 (Refused) PAP SMEAR 06/17/2022 06/17/2019, 09/06/2016 PNEUMOCOCCAL 0-64 YEARS Aged Out No longer eligible COMBINED SERIES based on patient's age to complete this topic documented as of this encounter Results Not on filedocumented in this encounter Insurance Payer Benefit Plan Subscriber ID Effective Phone Address Type / Group Dates [facility] xxxxxxxxx 2017-Pres [phone] Medicaid WOMEN ent [id number] [place] [address] documented as of this encounter Advance Directives Name Relationship Healthcare Agent Relationship Communication Ligia Zhong Grandparent Primary healthcare agent
--- OUTSIDE RECORDS SUMMARY | 2019-12-01 16:32 | XMS REPORT | Summary of Care ---
:1995 Author Organization [facility] Address [address] [place] [address] Care Team Providers Name Role Phone Miranda Allen REVIT DRAFTER Primary Care Provider Reason for Visit Reason Comments Well Woman Exam Encounter Details Date Type Department Care Team Description 06/17/2019 Office Visit [facility] Miranda Allen, Well woman exam (Primary Dx); [facility] Oral contraception initial prescription; [address] BMI 30.0-30.9,adult; [facility] A Need for HPV vaccination; [address] [place] [address] Screen for STD (sexually transmitted disease) [phone] Allergies Active Allergy Reactions Severity Noted Date [...] This exam may be done by a registered respiratory therapist, family healthcare provider, nurse practitioner, nurse cloud administrator, or specially trained nurse. Yearly breast exams [...] Guidelines for having clinical breast exams The [employer] [employer] recommends that [...] is best for you. Date Last Reviewed: 05/22/201719999830-9737 [employer]. [address] [place] [address]. All rights reserved. This information is not [...] breast self-examination (BSE). These experts include the [place] [employer], the U.S. Preventive Services Task Force, and the [place] [employer] Gynec[employer]. Some experts [...] they are not cancer. Date Last Reviewed: 05/22/201719995939-0101 [employer]. [address] [place] [address], [place] [address]. All rights reserved. This information is not [...] does not recommend CBE. Date Last Reviewed: 07/22/201719995333-9991 [employer]. [address] [place] [address], [place] [address]. All rights reserved. This information is not [...] to protect your future. Date Last Reviewed: 09/21/201619990375-4407 [employer]. [address] [place] [address], [place] [address]. All rights reserved. This information is not [...] memory and body movement. Date Last Reviewed: 08/22/201619998808-9421 [employer]. [address] [place] [address], [place] [address]. All rights reserved. This information is not [...] cinnamon, pepper, and rachele. Date Last Reviewed: 07/22/201719992348-9037 [employer]. [address] [place] [address]. All rights reserved. This information is not [...] the food you eat. Date Last Reviewed: 05/22/201719997549-[address] [employer] [place] [address]. All rights reserved. This information is not [...] file Gets together: Not on file Attends quaker service: Not on file Active member of [...] BCM: OCP 3) LMP: 04/25/2019 4) Last [place]: 06/05/2019, no condom 5) Last Pap: 09/06/2016 [...] Description 07/01[facility] Name Type Priority Associated [...] Effective Phone Address Type / Group Dates [facility] xxxxxxxxx 2017-Pres [phone] Medicaid WOMEN ent [address] [place] [address] documented as of this encounter Advance Directives Name Relationship Healthcare Agent Relationship Communication Ligiacandelario Zhong Grandparent Primary healthcare agent
--- NOTE | 2019-12-01 20:30 | ER ---
Nurse's Notes [facility] Name: Beena Garcia Age: 24 yrs Sex: Female : 1995 Arrival Date: 12/01/2019 Time: 16:42 Bed Waiting Private MD: Diagnosis: Presentation: 12/01 17:06 Presenting complaint: Patient states: 2 episodes of burning and swelling of both hands ca1 for the past week. Las episode was 3 days ago. Denies fever. Denies taking any new medication. Transition of care: patient was not received from another setting of care. Onset of symptoms was December 01, 2019. Risk Assessment: Do you want to hurt yourself or someone else? Patient reports no desire to harm self or others. Initial Sepsis Screen: Does the patient meet any 2 criteria? No. Patient's initial sepsis screen is negative. Does the patient have a suspected source of infection? No. Patient's initial sepsis screen is negative. Care prior to arrival: Medication(s) given: Benadryl taken an hour ago. 17:06 Method Of Arrival: Ambulatory ca1 17:06 Acuity: LETTY 4 ca1 PLATE MOLDER: 17:09 LMP 11/03/2019 ca1 Historical: - Allergies: 17:09 Codeine (Hives); ca1 - Home Meds: 17:09 None [Active]; ca1 - PMHx: 17:09 UTI; ca1 - PSHx: 17:09 None; ca1 - Immunization history:: Adult Immunizations up to date, Flu vaccine is not up to date. - Coronavirus screen:: The patient has NOT traveled to [place], [place], or [place] in the past 14 days. The patient has NOT had contact with known/suspected case of Coronavirus?. - Social history:: Smoking status: Patient denies any tobacco usage or history of. - Ebola Screening: : Patient negative for fever greater than or equal to 101.5 degrees Fahrenheit, and additional compatible Ebola Virus Disease symptoms Patient denies exposure to infectious person Patient denies travel to an Ebola-affected area in the 21 days before illness onset No symptoms or risks identified at this time. Vital Signs: 17:09 BP 112 / 74; Pulse 79; Resp 19 S; Temp 97.7(O); Pulse Ox 99% on R/A; Weight 68.95 kg ca1 (R); Height 4 ft. 11 in. (149.86 cm) (R); 17:09 Body Mass Index 30.70 (68.95 kg, 149.86 cm) ca1 ED Course: 16:42 Patient arrived in ED. fj1 17:08 Triage completed. ca1 17:09 Arm band placed on right wrist. ca1 18:21 Alexsander Biswas MD is Attending Physician. ma2 Administered Medications: No medications were administered Outcome: 18:45 Patient left the ED. ca1 Signatures: Alexsander Biswas MD MD ma2 Pauline Guerrero, RN RN ca1 Blaine Carlos [facility]
[2019-12-03 15:35] VITALS: BP 112/74; TEMP 97.7; O2SAT 99
== END 2019-12-01 18:45 | disposition left against medical advice (07) ==
LOC: ER 16:29
DX: Z53.21 Procedure and treatment not carried out due to patient leaving prior to being seen by health care provider (principal)
CPT/HCPCS: 99281

== ENCOUNTER 2019-12-03 22:16 | Emergency (ER) | payer SELFPAY ==
--- OUTSIDE RECORDS SUMMARY | 2019-12-03 22:18 | XMS REPORT ---
:1995 [facility] Address [address] [place] [address] Dr. Hodge [address] [place] [address] Care Team Providers Name Role Phone Unavailable Unavailable Unavailable Problems This patient has no known problems. Allergies, Adverse Reactions, Alerts This patient has no known allergies or adverse reactions. Medications This patient has no known medications.
[2019-12-03 22:56] LABS: Absolute Lymphocytes (CBC) 3.1 K/uL (0.7-4.9); Basophils % 0.5 % (0-1.3); Hematocrit 40.8 % (36.0-45.0); Lymphocytes % 28.4 % (15.3-44.8); MPV 8.5 fL (7.6-11.3); RBC Red Blood Cell Count 4.45 M/uL (3.86-4.86)
[2019-12-03] MEDS ORDERED: KETOROLAC 30 MG/ML INJ ONE (22:58)
[2019-12-03] MEDS ORDERED: ONDANSETRON 4 MG/2 ML VIAL ONE (23:01)
[2019-12-03 23:05] LABS: ALT/SGPT 30 U/L (12-78); AST/SGOT 16 U/L (15-37); Albumin 3.7 g/dL (3.4-5.0); Alkaline Phosphatase 90 U/L (45-117); BUN Blood Urea Nitrogen 12 mg/dL (7-18); Bicarbonate 28 mmol/L (21-32); Bilirubin Direct < 0.1 mg/dL (0-0.2); Bilirubin Total 0.2 mg/dL (0.2-1.0); Glucose Level 119 mg/dL (74-106); Lipase 170 U/L (73-393); Potassium 3.7 mmol/L (3.5-5.1); Protein, Total 7.7 g/dL (6.4-8.2); Sodium Level 139 mmol/L (136-145)
[2019-12-03 23:21] LABS: Urine Bacteria <20 /HPF (<20); Urine Culture Reflex Order REFLEXED; Urine RBC 20-50 /HPF (NONE SEEN); Urine Urothelial Cells <5 /HPF (NONE SEEN)
[2019-12-03 23:21] LABS: Urine Blood 2+ (NEG); Urine Glucose NEGATIVE (NEG); Urine Protein 2+ (NEG); Urine Specific Gravity 1.015 (1.005-1.030)
--- NOTE | 2019-12-04 00:34 | ER ---
Nurse's Notes [facility] – [place], [place] Name: Beena Garcia Age: 24 yrs Sex: Female : 1995 Arrival Date: 12/03/2019 Time: 22:17 Bed 27 Private MD: Diagnosis: Urinary tract infection, site not specified;Other and unspecified ovarian cysts-right ovary Presentation: 12/03 22:36 Presenting complaint: Patient states: abdominal pain since 1700. started after eating ch pizza. states it make her nauseated, started R side front and radiates to back. Transition of care: patient was not received from another setting of care. Onset of symptoms was December 03, 2019 at 17:00. Risk Assessment: Do you want to hurt yourself or someone else? Patient reports no desire to harm self or others. Initial Sepsis Screen: Does the patient meet any 2 criteria? No. Patient's initial sepsis screen is negative. Does the patient have a suspected source of infection? No. Patient's initial sepsis screen is negative. Care prior to arrival: None. 22:36 Method Of Arrival: Ambulatory 22:36 Acuity: LETTY 3 Triage Assessment: 22:38 General: Appears in no apparent distress. comfortable, Behavior is calm, cooperative, ch appropriate for age. Pain: Complains of pain in posterior aspect of right lateral abdomen, anterior aspect of right lateral abdomen and right upper quadrant. GI: Bowel sounds present X 4 quads. Abd is soft X 4 quads Abdomen is tender to palpation in right upper quadrant. Derm: Skin is pink, warm \T\ dry. Historical: - Allergies: 22:38 Codeine (Hives); - Home Meds: 22:38 None [Active]; - PMHx: 22:38 UTI; - PSHx: 22:38 None; - Immunization history:: Adult Immunizations up to date. - Coronavirus screen:: The patient has NOT traveled to [place] in the past 14 days. The patient has NOT had contact with known/suspected case of Coronavirus?. - Social history:: Smoking status: Patient denies any tobacco usage or history of. Patient/guardian denies using alcohol, street drugs. - Ebola Screening: : Patient negative for fever greater than or equal to 101.5 degrees Fahrenheit, and additional compatible Ebola Virus Disease symptoms Patient denies exposure to infectious person Patient denies travel to an Ebola-affected area in the 21 days before illness onset No symptoms or risks identified at this time. Screenin:27 Abuse screen: Denies threats or abuse. Denies injuries from another. Nutritional screening: No deficits noted. Tuberculosis screening: No symptoms or risk factors identified. Fall Risk None identified. Assessment: 23:27 Reassessment: Patient appears in no apparent distress at this time. Patient and/or family updated on plan of care and expected duration. Pain level reassessed. Patient is alert, oriented x 3, equal unlabored respirations, skin warm/dry/pink. Patient states feeling better. Patient states symptoms have improved. General: Appears in no apparent distress. comfortable, Behavior is calm, cooperative, appropriate for age. 23:58 Reassessment: Patient appears in no apparent distress at this time. pt returned from ct, awaiting results now. 12/04 01:23 Reassessment: Patient appears in no apparent distress at this time. Patient and/or family updated on plan of care and expected duration. Pain level reassessed. Patient is alert, oriented x 3, equal unlabored respirations, skin warm/dry/pink. Patient states feeling better. Patient states symptoms have improved. 01:26 Reassessment: pt upt is negative. pt did not have heart tones performed by me. Vital Signs: 12/03 22:38 BP 122 / 89; Pulse 93; Resp 16; Temp 99.2(O); Pulse Ox 100% on R/A; Weight 68.95 kg; Height 4 ft. 11 in. (149.86 cm); Pain 8/10; 23:27 BP 104 / 66; Pulse 79; Resp 14; Pulse Ox 100% on R/A; Pain 3/10; 12/04 01:25 BP 120 / 62; Pulse 74; Resp 16; Temp 98.4; Pulse Ox 99% on R/A; Pain 2/10; 12/03 22:38 Body Mass Index 30.70 (68.95 kg, 149.86 cm) ED Course: 12/03 22:17 Patient arrived in ED. ag3 22:22 Nikhil Macdonald PA is PHCP. cp 22:22 Eduard Grady MD is Attending Physician. cp 22:30 Radiology exam delayed due to test not completed at this time. vm2 22:36 Alta Newberry, MISHA is Primary Nurse. ch 22:37 Triage completed. ch 22:37 Initial lab(s) drawn, by me, sent to lab. Inserted saline lock: 22 gauge in right lt1 antecubital area, using aseptic technique. 22:38 Arm band placed on left wrist. Patient placed in an exam room, on a stretcher. ch 22:39 Basic Metabolic Panel Sent. lt1 22:39 CBC with Diff Sent. lt1 22:39 Creatinine for Radiology Sent. lt1 22:39 Hepatic Function Sent. lt1 22:39 Lipase Sent. lt1 23:27 No provider procedures requiring assistance completed. ch 23:27 Patient has correct armband on for positive identification. Placed in gown. Bed in low ch position. Call light in reach. Side rails up X 1. Pulse ox on. NIBP on. Warm blanket given. 12/04 01:25 No apparent distress. ch 01:25 IV discontinued, intact, bleeding controlled, No redness/swelling at site. Pressure dressing applied. Administered Medications: 12/03 22:55 Drug: TORadol - Ketorolac 15 mg Route: IVP; Site: right antecubital; ch 23:28 Follow up: Response: No adverse reaction; Marked relief of symptoms 23:01 Drug: Zofran 4 mg Route: IVP; Site: right antecubital; ch 23:28 Follow up: Response: No adverse reaction; Marked relief of symptoms 12/04 01:14 Drug: Rocephin 1 grams Route: IV; Rate: bolus; Site: right antecubital; aa1 01:34 Follow up: IV Status: Completed infusion; IV Intake: 10ml Point of Care Testing: Urine : 01:25 hCG Reading: Negative; Control Reading: Negative; ch Intake: :34 IV: 10ml; Total: 10ml. Outcome: 00:31 Discharge ordered by . cp 01:25 Discharged to home ambulatory, with family. 01:25 Condition: stable 01:25 Discharge instructions given to patient, Instructed on discharge instructions, follow up and referral plans. medication usage, Demonstrated understanding of instructions, follow-up care, medications, Prescriptions given X 2. 01:34 Patient left the ED. Addendum: 12/07/2019 07:18 Addendum: Culture Results: Positive urine culture. No further action required. Bacteria e b sensitive to prescribed antibiotic. Signatures: Alta Newberry, RN RN Leeanne Baumann RN RN aa1 Nikhil Macdonald PA PA cp McGuire, Victoria 2 Olya Merrill Alice 3 Laura Roldan RN RN ls4 Farrah Hardy 1 Corrections: (The following items were deleted from the chart) 12/04 01:26 00:33 Heart Tones 158. ls4
--- NOTE | 2019-12-04 00:34 | EDPHYS ---
Physician Documentation [facility] Name: Beena Garcia Age: 24 yrs Sex: Female : 1995 Arrival Date: 12/03/2019 Time: 22:17 Bed 27 Private MD: ED Physician Eduard Grady HPI: 12/03 22:27 This 24 yrs old Female presents to ER via Unassigned with complaints of cp Abdominal Pain. 22:27 The patient presents with abdominal pain right flank. Onset: The symptoms/episode cp began/occurred today, couple hours ago. The symptoms radiate to right back. Associated signs and symptoms: Pertinent negatives: anorexia, constipation, diarrhea, dysuria, fever, vomiting. The symptoms are described as constant. Historical: - Allergies: 22:38 Codeine (Hives); ch - Home Meds: 22:38 None [Active]; ch - PMHx: 22:38 UTI; ch - PSHx: 22:38 None; ch - Immunization history:: Adult Immunizations up to date. - Coronavirus screen:: The patient has NOT traveled to [place] in the past 14 days. The patient has NOT had contact with known/suspected case of Coronavirus?. - Social history:: Smoking status: Patient denies any tobacco usage or history of. Patient/guardian denies using alcohol, street drugs. - Ebola Screening: : Patient negative for fever greater than or equal to 101.5 degrees Fahrenheit, and additional compatible Ebola Virus Disease symptoms Patient denies exposure to infectious person Patient denies travel to an Ebola-affected area in the 21 days before illness onset No symptoms or risks identified at this time. ROS: 22:45 Constitutional: Negative for body aches, chills, fever, poor PO intake. cp 22:45 Eyes: Negative for injury, pain, redness, and discharge. cp 22:45 ENT: Negative for drainage from ear(s), ear pain, sore throat, difficulty swallowing, difficulty handling secretions. 22:45 Cardiovascular: Negative for chest pain, edema, palpitations. 22:45 Respiratory: Negative for cough, shortness of breath, wheezing. 22:45 Abdomen/GI: Positive for abdominal pain, nausea, Negative for vomiting, diarrhea, constipation, anorexia, black/tarry stool, rectal bleeding. 22:45 Back: Positive for flank pain, on the right, Negative for injury or acute deformity. 22:45 : Negative for urinary symptoms, vaginal bleeding, vaginal discharge. 22:45 Skin: Negative for rash. 22:45 Neuro: Negative for altered mental status, headache, weakness. 22:45 All other systems are negative. Exam: 22:50 Constitutional: The patient appears in no acute distress, alert, awake, non-toxic, well cp developed, well nourished. 22:50 Head/Face: Normocephalic, atraumatic. cp 22:50 Eyes: Periorbital structures: appear normal, Conjunctiva: normal, no exudate, no injection, Sclera: no appreciated abnormality, Lids and lashes: appear normal, bilaterally. 22:50 ENT: External ear(s): are unremarkable, Nose: is normal, Mouth: Lips: moist, Oral mucosa: pink and intact, moist, Posterior pharynx: is normal, airway is patent, no erythema, no exudate. 22:50 Chest/axilla: Inspection: normal, Palpation: is normal, no crepitus, no tenderness. 22:50 Cardiovascular: Rate: normal, Rhythm: regular. 22:50 Respiratory: the patient does not display signs of respiratory distress, Respirations: normal, no use of accessory muscles, no retractions, labored breathing, is not present, Breath sounds: are clear throughout, no decreased breath sounds. 22:50 Abdomen/GI: Inspection: abdomen appears normal, Bowel sounds: active, all quadrants, Palpation: soft, in all quadrants, moderate abdominal tenderness, in the posterior aspect of right lateral abdomen, anterior aspect of right lateral abdomen and right lower quadrant, rebound tenderness, is not appreciated, voluntary guarding, is elicited in the posterior aspect of right lateral abdomen, anterior aspect of right lateral abdomen and right lower quadrant. 22:50 Skin: no rash present. Vital Signs: 22:38 BP 122 / 89; Pulse 93; Resp 16; Temp 99.2(O); Pulse Ox 100% on R/A; Weight 68.95 kg; ch Height 4 ft. 11 in. (149.86 cm); Pain 8/10; 23:27 BP 104 / 66; Pulse 79; Resp 14; Pulse Ox 100% on R/A; Pain 3/10; ch 12/04 01:25 BP 120 / 62; Pulse 74; Resp 16; Temp 98.4; Pulse Ox 99% on R/A; Pain 2/10; ch 12/03 22:38 Body Mass Index 30.70 (68.95 kg, 149.86 cm) ch MDM: 12/03 22:25 Patient medically screened. cp 22:45 Differential diagnosis: cholecystitis, Cholelithiasis, Ovarian Torsion, Pyelonephritis, cp Ureterolithiasis, urinary tract infection. 12/04 00:30 Data reviewed: vital signs, nurses notes, lab test result(s), radiologic studies, CT cp scan. 00:30 Counseling: I had a detailed discussion with the patient and/or guardian regarding: the cp historical points, exam findings, and any diagnostic results supporting the discharge/admit diagnosis, lab results, radiology results, to return to the emergency department if symptoms worsen or persist or if there are any questions or concerns that arise at home. Response to treatment: the patient's symptoms have markedly improved after treatment, and as a result, I will discharge patient. Special discussion: Based on the patient's Hx, exam, and Dx evaluation, there is no indication for emergent surgery or inpatient Tx. It is understood by the patient/guardian that if the Sx's persist or worsen they need to return immediately for re-evaluation. 12/03 22:26 Order name: Basic Metabolic Panel 12/03 22:26 Order name: CBC with Diff 12/03 22:26 Order name: Creatinine for Radiology 12/03 22:26 Order name: Hepatic Function 02 22:26 Order name: Lipase 12/03 22:26 Order name: Urine Microscopic Only 12/03 22:49 Order name: Urine Dipstick--Ancillary (enter results) nm 12/03 22:50 Order name: Urine --Ancillary (enter results) nm 12/03 22:58 Order name: CBC with Automated Diff; Complete Time: 23:25 EDMS 12/03 23:26 Interpretation: Reviewed. 12/03 23:04 Order name: Creatinine (Radiology Only); Complete Time: 23:25 EDMS 12/03 23:08 Order name: Basic Metabolic Panel; Complete Time: 23:25 EDMS 02 23:25 Interpretation: Normal except: GLUC 119. 12/03 23:08 Order name: Liver (Hepatic) Function; Complete Time: 23:25 EDMS 12/03 23:08 Order name: Lipase; Complete Time: 23:25 EDWA 12/03 23:23 Order name: Urine Microscopic Only; Complete Time: 23:25 EDMS 12/03 23:26 Interpretation: Normal except: UWBC >50; URBC 20-50; SQEPI 5-10. cp 12/03 22:26 Order name: IV Saline Lock; Complete Time: 22:38 12/03 22:26 Order name: Labs collected and sent; Complete Time: 22:38 12/03 22:26 Order name: Urine Dipstick-Ancillary (obtain specimen); Complete Time: 23:29 cp 12/03 22:26 Order name: Urine Test (obtain specimen); Complete Time: 23:28 12/03 22:26 Order name: CT Stone Protocol 12/03 23:23 Order name: Urine --Ancillary; Complete Time: 23:25 EDWA 12/04 01:25 Interpretation: Reviewed. 12/03 23:23 Order name: Urine Dipstick-Ancillary; Complete Time: 23:25 EDWA 12/03 23:26 Interpretation: Normal except: UBLD 2+; UPROT 2+; UESTR 2+. cp Administered Medications: 12/03 22:55 Drug: TORadol - Ketorolac 15 mg Route: IVP; Site: right antecubital; 23:28 Follow up: Response: No adverse reaction; Marked relief of symptoms 23:01 Drug: Zofran 4 mg Route: IVP; Site: right antecubital; 23:28 Follow up: Response: No adverse reaction; Marked relief of symptoms 12/04 01:14 Drug: Rocephin 1 grams Route: IV; Rate: bolus; Site: right antecubital; aa1 01:34 Follow up: IV Status: Completed infusion; IV Intake: 10ml Point of Care Testing: Urine : 01:25 hCG Reading: Negative; Control Reading: Negative; Disposition: 03:13 Co-signature as Attending Physician, Eduard Grady MD. rn Disposition: 12/04/19 00:31 Discharged to Home. Impression: Urinary tract infection, site not specified, Other and unspecified ovarian cysts - right ovary. - Condition is Stable. - Discharge Instructions: Ovarian Cyst, Urinary Tract Infection, Adult. - Prescriptions for Ibuprofen 800 mg Oral Tablet - take 1 tablet by ORAL route every 8 hours As needed take with food; 30 tablet. Bactrim DS 800- 160 mg Oral Tablet - take 1 tablet by ORAL route every 12 hours for 7 days; 14 tablet. - Work release form, Medication Reconciliation Form, Thank You Letter, Antibiotic Education, Prescription Opioid Use form. - Follow up: Private Physician; When: 1 week; Reason: Recheck today's complaints. - Problem is new. - Symptoms have improved. Signatures: Dispatcher [employer] EDAlta Smith RN RN Leeanne Baumann RN RN aa1 Eduard Grady MD MD rn Page, Corey, PA PA cp Corrections: (The following items were deleted from the chart) 01:34 00:31 12/04/2019 00:31 Discharged to Home. Impression: Urinary tract infection, site ch not specified; Other and unspecified ovarian cysts - right ovary. Condition is Stable. Forms are Medication Reconciliation Form, Thank You Letter, Antibiotic Education, Prescription Opioid Use. Follow up: Private Physician; When: 1 week; Reason: Recheck today's complaints. Problem is new. Symptoms have improved. cp
[2019-12-04] MEDS ORDERED: CEFTRIAXONE/SWI 1gm 1 GM/10 ML SYR ONE (01:15)
--- NOTE | 2019-12-04 11:30 | RAD REPORT ---
EXAM DESCRIPTION: Stone Protocol CLINICAL HISTORY: 24 years Female right flank pain COMPARISON: None TECHNIQUE: Images were obtained in axial, sagittal, and coronal planes. No intravenous contrast was administered. This exam was performed according to our departmental dose-optimization program which includes use of Automated Exposure Control, adjustment of the mA and/or kV according to patient size and/or use of i terative reconstruction technique. FINDINGS: No obstructing renal calcifications bilaterally. No hydronephrosis bilaterally. Unremarkab le bladder. Punctate calcifications within the pelvis which do not appear to be related to the distal ureters bilaterally. Cystic appearance right ovary. Right ovary measures 3.2 cm in anterior posterior dimension. Appendix within normal limits. No bowel obstruction, perforation, or inflammation. Hepatic enlargement. Unremarkable spleen, pancreas, gallbladder, and adrenal glands bilaterally. No abnormality lower lungs bilaterally. No acute osseous abnormality. No dilatation abdominal aorta. No adenopathy or abnormal fluid collections seen. IMPRESSION: No obstructing renal calcifications bilaterally. No definite ureteral calculi bilaterall y. Cystic appearance right ovary. Enlarged liver. 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 The interpreting radiologist is f ully responsible for the content of the report.
[2019-12-05 05:24] VITALS: BP 120/62; TEMP 98.4; O2SAT 99
== END 2019-12-04 01:34 | disposition home or self-care (01) ==
LOC: ER 22:16
DX: N39.0 Urinary tract infection, site not specified (principal); N83.201 Unspecified ovarian cyst, right side; Z88.5 Allergy status to narcotic agent
CPT/HCPCS: 36415; 74176; 76377; 80048; 80076; 81003; 81015; 81025; 83690; 85025; 87077; 87086; 87088; 87186; 96365; 96375; 99284; J0696; J2405

== ENCOUNTER 2020-07-02 17:57 | Emergency (ER) | payer SELFPAY, OTHER ==
--- OUTSIDE RECORDS SUMMARY | 2020-07-02 17:59 | XMS REPORT | Continuity of Care Document ---
:1995 Author Organization [facility] t Address [address] [place] [address] [address] [place] [address] Care Team Providers Name Role Phone Kinsey Machuca Attending Clinician Problems This patient has no known problems. Allergies, Adverse Reactions, Alerts This patient has no known allergies or adverse reactions. Medications This patient has no known medications. Procedures This patient has no known procedures. 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
--- OUTSIDE RECORDS SUMMARY | 2020-07-02 17:59 | XMS REPORT | Summary of Care ---
:1995 Author Organization [facility] Address [address] [place] [address] Care Team Providers Name Role Phone Miranda Allen Primary Care Provider Reason for Visit Reason Comments IRREGULAR BLEEDING STD Testing Encounter Details Date Type Department Care Team Description [facility] for initial prescription of contraceptive pills (Primary Dx); BISHOP Yu Cyst of right ovary; [address] [facility] [address] [facility] Screening examination for venereal disease [place] [id number] [phone] Allergies Active Allergy Reactions Severity Noted Date Comments Codeine Hives 02/27/2017 documented as of this encounter (statuses as of 04/13/2020) Medications Medication Sig Dispensed Refills Start Date End Date Status norgestimate-ethinyl Take 1 tablet 1 Package 1 04/13/2020 Active estradiol (ORTHO by mouth TRI-CYCLEN, 28,) daily. 0.18/0.215/0.25 mg-35 mcg (28) tabletIndications: Encounter for initial prescription of contraceptive pills norgestimate-ethinyl Take 1 tablet 1 Package 2 09/10/201903/23 Discontinued estradiol (ORTHO by mouth TRI-CYCLEN LO, 28,) daily. 0.18/0.215/0.25 mg-25 mcg tabletIndications: Irregular menstrual cycle documented as of this encounter (statuses as of 04/13/2020) Active Problems Problem Noted Date Cyst of right ovary 04/13/2020 Screening examination for venereal disease 01/05/2020 UTI symptoms 01/05/2020 Well woman exam 09/21/2017 Contraceptive management 09/21/2017 Over weight 09/21/2017 documented as of this encounter (statuses as of 04/13/2020) Resolved Problems Problem Noted Date Resolved Date Miscarriage 11/10/2016 09/21/2017 Other general counseling and advice for contraceptive 201609/21/2017 management Missed 10/09/2016 09/21/2017 Rubella non-immune status, antepartum 09/07/2016 Supervision of high risk , antepartum 09/06/2016 09/21/2017 Flu vaccine need 09/06/2016 09/21/2017 Overview: Received today Surveillance of previously prescribed contraceptive pill 06/201609/06/2016 documented as of this encounter (statuses as of 04/13/2020) Immunizations Name Administration Dates Next Due HPV9 09/10/2019, 06/17/2019 Influenza Virus Vaccine Quad IM 3+ YRS 09/06/2016 TDAP 10/22/2009 documented as of this encounter Social [...] Travel End No recent travel history available. COVID-19 Exposure Response Date Recorded In the last month, have you been in contact with No / Unsure 04/13/2020 11:16 AM CDT someone who was confirmed or suspected to have Coronavirus / COVID-19? 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 Patient report she was informed thatshawn had right ovarian cyst in 11/2019, report in external records. Patient report she was find untilshawn started experiencing same symptoms of bleeding x11 days. Patient requesting to be on OCPs pills for BCM and controlling the bleeding. Patient denies current or past physical, sexual or emotional abuse. Histories OB History Para Term AB Living 1 0 0 0 1 0 SAB TAB Ectopic Multiple Live Births 1 0 0 0 # Outcome Date GA Lbr Mario/2nd Weight Sex Delivery Anes PTL Lv 1 SAB 09/2016 8w0d Past Medical History: Diagnosis Date Anxiety 2014 Not on meds Cyst of right ovary 04/13/2020 Menstrual disorder 2017 Irregular cycles; may skip months Screen for STD (sexually transmitted disease) 01/05/2020 Family History Problem Relation Age of Onset [...] Specified) MAunt (Not Specified) NoFHx (Not Specified) No past surgical history on file. Social History Socioeconomic History Marital status: Single [...] Sexual Activity Alcohol use: No Alcohol/week: 0.0 standard drinks Drug use: No Sexual activity: Yes Partners: Male control/protection: None Comment: Last intercourse: 04/02/2020. Patient feels safe at home. Lifestyle Physical activity: Days per week: Not on file Minutes per session: Not on file Stress: Not on file Relationships Social connections: Talks on phone: Not on file Gets together: Not on file Attends latter-day service: Not on file Active member of [...] Partners: Male control/protection: None Comment: Last intercourse: 04/02/2020. Patient feels safe at home. Labs Labs are pending. Radiology No new radiology. Allergies Beena is allergic to codeine. Medications Beena has a current medication list which includes the following prescription(s): norgestimate-ethinyl estradiol. Review of Systems Genitourinary: Positive for vaginal bleeding. BP 114/72 (BP Location: Right arm, Patient Position: Sitting, BP CUFF SIZE: Adult Medium) | Pulse 85 | Temp 36.9 C (98.5 F) (Oral) | Resp 16 | Ht 4' 11" (1.499 m) | Wt 152 lb 8 oz (69.2 kg) |BMI 30.80 kg/m Pregravid BMI: Could not be calculated Physical Exam Vitals reviewed. Constitutional: She is oriented to person, place, and time. She appears well- developed and well-nourished. Her body habitus is normal. Cardiovascular: Regular rate and rhythm. No peripheral edema present. Pulmonary/Chest: Normal inspiratory effort. Neuro/Psychiatric: Inappropriate mood and affect. She is oriented to person, place, and time. Skin: Skin normal. No lesion, no rash and no ulceration present. External genitalia: Normal external genitalia appropriate for age. Vagina: bleeding noted Cervix: Normal cervix. Assessment/Plan Encounter for initial prescription of contraceptive pills (primary encounter diagnosis) Cyst of right ovary Comment: See HPI Plan: norgestimate-ethinyl estradiol (ORTHO TRI-CYCLEN, 28,) 0.18/0.215/0.25 mg-35 mcg (28) tablet, POCT TEST Patient desires to start OCPs for contraception. Provider has reviewed risks, benefits and alternatives contraception methods. Provider has also reviewed use, side effects and effectiveness of desired BCM vs other BCM. Encouraged abstinence until menses. Encouraged use of condoms as back up x 1 month and for safer sex. Screening examination for venereal disease Comment: patient desires testing Plan: GC & CHLAMYDIA AMPLIFIED ASSAY, GALV ONLY - SYPHILIS IGG/IGM, HIV 1/2 AG-AB WITH REFLEX Return to clinic in 05/2020 for WWE. Discussed treatment options. Medications as ordered. Reviewed patient instructions and provided printed copy. This visit did not involve counseling and coordination that comprised more than 50% of the visit time. BISHOP Ziegler 04/13/2020 12:28 PM documented in this encounter Plan of Treatment Date Type Specialty Care Team Description 06/07/2020 [facility] [address] [place], [place] [address] [phone] Name Type Priority Associated Diagnoses Date/Ti me GC & CHLAMYDIA LAB Routine Screening examination for 04/13/2020 11:41 AM CDT AMPLIFIED ASSAY venereal disease GALV ONLY - SYPHILIS LAB Routine Screening examinatio n for 04/13/2020 11:41 AM CDT IGG/IGM venereal disease HIV 1/2 AG-AB WITH LAB Routine Screening examination for 04/13/2020 11:41 AM CDT REFLEX venereal disease Health Maintenance Due Date Last Done Comments HPV VACCINES (3 - Female 01/09/2020 09/10/2019, 06/17/2019 3-dose series) Depression Screening 06/17/2020 06/17/2019 DTaP,Tdap,and Td Vaccines 11/25/2020 10/22/2009 Postpo walter from (2 - Td) 10/22/2019 (Refu sed) INFLUENZA VACCINE (Season 11/25/2020 09/06/2016 Postpo walter from Ended) 06/22/2020 (Refu sed) CHLAMYDIA SCREENING 01/04/2021 01/05/2020, 11/25/2019, 09/25/2019, Additional history exists PAP SMEAR 06/17/2022 06/17/2019, 09/06/2016 PNEUMOCOCCAL 0-64 YEARS Aged Out No longe r eligible COMBINED SERIES based on patient 's age to complete this topic documented as of this encounter Procedures Procedure Name Priority Date/Time Associated Diagnosis Comme nts POCT Routine 04/13/2020 11:34 Encounter for initial Results for this TEST AM CDT prescription of procedure ar e in contraceptive pills the resu lts section. documented in this encounter Results POCT TEST (04/13/2020 11:34 AM CDT) Pathologist Sig nature POCT PREG Negative On board controls acceptable Yes with C Line POCT PREG LOT # POCT PREG TEST DATE Specimen Urine - URINE, CLEAN CATCH documented in this encounter Visit Diagnoses Diagnosis Encounter for initial prescription of co ntraceptive pills - Primary General counseling for prescription of o ral contraceptives Cyst of right ovary Other and unspecified ovarian cyst Screening examination for venereal disea se documented in this encounter Insurance Payer Benefit Plan Subscriber ID Effective Phone Address Typ e / Group Dates [facility] xxxxxxxxx 2017-Pres [phone] Medicaid WOMEN ent [id number] [place] [id number] 1 documented as of this encounter Advance Directives Name Relationship Healthcare Agent Relationship Co mmunication Ligia Zhong Grandparent Primary healthcare agent
--- OUTSIDE RECORDS SUMMARY | 2020-07-02 17:59 | XMS REPORT | Summary of Care ---
:1995 Author Organization [facility] Address [address] [place] [id number] Care Team Providers Name Role Phone Miranda Allen Primary Care Provider Reason for Visit Reason Comments IRREGULAR BLEEDING STD Testing Encounter Details Date Type Department Care Team Description [facility] for initial prescription of contraceptive pills (Primary Dx); BISHOP Yu Cyst of right ovary; [address] [facility] [address] [facility] Screening examination for venereal disease [place] [id number] 15 [phone] Allergies Active Allergy Reactions Severity Noted Date [...] in this encounter Progress Notes Richard Toro, 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 - 04/13/2020 11:00 AM CDT Chief complaint: [...] file Gets together: Not on file Attends sabianist service: Not on file Active member of [...] Visit [facility] Hicks, [facility] [address] [place], [place] [address] [phone] Name Type Priority Associated Diagnoses Date/Ti me [...] Address Typ e / Group Dates [facility] xxxxxxxxx 2017-Pres [phone] Medicaid WOMEN ent [id number] [place] [phone] 1 documented as of this encounter Advance Directives Name Relationship Healthcare Agent Relationship Co mmunication Ligia Zhong Grandparent Primary healthcare agent
[2020-07-02] MEDS ORDERED: ONDANSETRON 4 MG/2 ML VIAL ONE (18:47)
[2020-07-02] MEDS ORDERED: ACETAMINOPHEN 500 MG TAB ONE (18:47)
[2020-07-02] MEDS ORDERED: NA CHLORIDE 0.9% 1,000 ML ONE (18:48)
--- NOTE | 2020-07-02 18:59 | RAD REPORT ---
EXAM DESCRIPTION: Emmie Single View07/02/2020 6:44 pm CLINICAL HISTORY: cough COMPARISON: 2017 FINDINGS: The lungs appear clear of acute infiltrate. The heart is normal size IMPRESSION: No acute abnormalities displayed
[2020-07-02 19:19] LABS: Absolute Lymphocytes (CBC) 1.1 K/uL (0.7-4.9); Basophils % 0.3 % (0-1.3); Hematocrit 40.1 % (36.0-45.0); Lymphocytes % 9.7 % (15.3-44.8); MPV 8.4 fL (7.6-11.3); RBC Red Blood Cell Count 4.41 M/uL (3.86-4.86)
[2020-07-02 19:33] LABS: Potassium 3.7 mmol/L (3.5-5.1)
--- NOTE | 2020-07-02 20:02 | ER ---
Nurse's Notes [facility] Name: Beena Garcia Age: 24 yrs Sex: Female : 1995 Arrival Date: 07/02/2020 Time: 17:59 Bed 16 Private MD: Diagnosis: Acute upper respiratory infection, unspecified;Nausea and vomiting Presentation: 07/02 18:03 Chief complaint: Patient states: "I am all congested with my chest hurting and a lot of jd3 nausea and vomiting.". Coronavirus screen: fever, shortness of breath, vomiting. Client presents with at least one sign or symptom that may indicate coronavirus-19. Standard/surgical mask placed on the client. Provider contacted for isolation considerations. Ebola Screen: Patient negative for fever greater than or equal to 101.5 degrees Fahrenheit, and additional compatible Ebola Virus Disease symptoms. Initial Sepsis Screen: Does the patient meet any 2 criteria? HR > 90 bpm. No. Patient's initial sepsis screen is negative. Does the patient have a suspected source of infection? No. Patient's initial sepsis screen is negative. Risk Assessment: Do you want to hurt yourself or someone else? Patient reports no desire to harm self or others. Onset of symptoms was July 01, 2020. 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 - Social history:: Smoking status: Patient denies any tobacco usage or history of. Screenin:31 Abuse screen: Denies threats or abuse. Nutritional screening: No deficits noted. ll1 Tuberculosis screening: No symptoms or risk factors identified. Fall Risk Gait- Weak (10 pts.). Total Gilbert Fall Scale indicates No Risk (0-24 pts). Assessment: 18:29 General: Appears comfortable, Behavior is calm, cooperative. Pain: Complains of pain in ll1 head. Neuro: No deficits noted. Cardiovascular: Reports chest pain, Heart tones S1 S2 Capillary refill < 3 seconds Clubbing of nail beds is absent JVD is absent Patient's skin is warm and dry. Respiratory: Reports cough that is Airway is patent Trachea midline Respiratory effort is even, unlabored, Respiratory pattern is regular, symmetrical, Breath sounds are clear bilaterally. GI: Abdomen is flat, Bowel sounds present X 4 quads. Abd is soft and non tender X 4 quads. Reports nausea, vomiting. EENT: Nares are clear Reports nasal congestion. Musculoskeletal: Circulation, motion, and sensation intact. Capillary refill < 3 seconds, Reports Generalized weakness and generalized malaise. 19:30 Reassessment: No changes from previously documented assessment. Patient and/or family ll1 updated on plan of care and expected duration. Pain level reassessed. Patient is alert, oriented x 3, equal unlabored respirations, skin warm/dry/pink. 20:12 Reassessment: Patient and/or family updated on plan of care and expected duration. Pain ll1 level reassessed. Patient is alert, oriented x 3, equal unlabored respirations, skin warm/dry/pink. Vital Signs: 18:05 BP 128 / 80; Pulse 109; Resp 19 S; Temp 100.8(TE); Pulse Ox 99% on R/A; Weight 69.4 kg jd3 (R); Height 4 ft. 10 in. (147.32 cm) (R); Pain 8/10; 19:47 BP 108 / 70; Pulse 90; Resp 18; Pulse Ox 100% ; ll1 20:11 BP 117 / 85; Pulse 88; Resp 18; Temp 98.3; Pulse Ox 100% ; ll1 18:05 Body Mass Index 31.98 (69.40 kg, 147.32 cm) [facility] ED Course: 17:59 Patient arrived in ED. mr 18:03 JayIvonne, SAMIA is [facility]. kb 18:03 Alexsander Biswas MD is Attending Physician. kb 18:04 Triage completed. jd3 18:06 Arm band placed on. jd3 18:28 Yvette Hopper, MISHA is Primary Nurse. ll1 18:30 Inserted saline lock: 20 gauge in right antecubital area, using aseptic technique. ll1 Blood collected. 18:31 Patient has correct armband on for positive identification. Bed in low position. Call ll1 light in reach. Side rails up X 1. 18:44 Chest Single View XRAY In Process Unspecified. EDMS 20:13 No provider procedures requiring assistance completed. IV discontinued, intact, ll1 bleeding controlled, No redness/swelling at site. Pressure dressing applied. Administered Medications: 19:02 Drug: Zofran (Ondansetron) 4 mg Route: IVP; Site: right antecubital; ll1 19:53 Follow up: Response: No adverse reaction; RASS: Alert and Calm (0) 1 19:02 Drug: Tylenol 1000 mg Route: PO; ll1 19:53 Follow up: Response: No adverse reaction; RASS: Alert and Calm (0) 1 19:03 Drug: NS 0.9% 1000 ml Route: IV; Rate: 1000 ml; Site: right antecubital; ll1 19:53 Follow up: Response: No adverse reaction; RASS: Alert and Calm (0); IV Status: ll1 Completed infusion; IV Intake: 1000ml Intake: 19:53 IV: 1000ml; Total: 1000ml. 1 Outcome: 20:01 Discharge ordered by . kb 20:13 Discharged to home ambulatory. ll1 20:13 Condition: stable 20:13 Discharge instructions given to patient, Instructed on discharge instructions, follow up and referral plans. medication usage, Demonstrated understanding of instructions, follow-up care, medications, Prescriptions given X 2. 20:14 Patient left the ED. ll1 Addendum: 07/05/2020 14:05 Addendum: COVID-19 Result: Negative result given to RN to notify pt. Notified pt of i w negative COVID 19 swab results. Pt advised that even with a negative test result they should remain in isolation until symptom free for 3 days without medication. Pt also advised to return to the ED for worsening symptoms. Signatures: Dispatcher [employer] EDMS Ivonne Thompson, SAMIA ALAS-Matias Alvareza Dafne Priscila Lai, RN Alex Contreras RN RN jd3 Lewis, Lynsay, RN RN ll1
--- NOTE | 2020-07-02 20:02 | EDPHYS ---
Physician Documentation [facility] Name: Beena Garcia Age: 24 yrs Sex: Female : 1995 Arrival Date: 07/02/2020 Time: 17:59 Bed 16 Private MD: ED Physician Alexsander Biswas HPI: 07/02 21:36 This 24 yrs old Female presents to ER via Ambulatory with complaints of kb Congestion. 21:36 The patient or guardian reports cough, that is intermittent, described as moderate, kb with no sputum, difficulty breathing. Onset: The symptoms/episode began/occurred yesterday. Severity of symptoms: At their worst the symptoms were mild, moderate, in the emergency department the symptoms are unchanged. Modifying factors: The symptoms are alleviated by nothing, the symptoms are aggravated by nothing. Associated signs and symptoms: Pertinent positives: chest pain, nausea, rhinorrhea, sore throat, vomiting, Pertinent negatives: diarrhea, ear ache, fever. The patient has not experienced similar symptoms in the past. The patient has not recently seen a physician. 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 - Social history:: Smoking status: Patient denies any tobacco usage or history of. ROS: 21:35 Constitutional: Negative for fever, chills, and weight loss, Cardiovascular: Negative kb for chest pain, palpitations, and edema, Back: Negative for injury and pain, MS/Extremity: Negative for injury and deformity, Skin: Negative for injury, rash, and discoloration, Neuro: Negative for headache, weakness, numbness, tingling, and seizure. 21:35 ENT: Positive for rhinorrhea, sinus congestion. 21:35 Respiratory: Positive for cough, shortness of breath, Negative for dyspnea on exertion, hemoptysis, orthopnea, pleurisy, sputum production, wheezing. 21:35 Abdomen/GI: Positive for nausea and vomiting, Negative for abdominal pain, diarrhea, constipation, abdominal cramps, abdominal distension, anorexia. Exam: 21:35 Constitutional: This is a well developed, well nourished patient who is awake, alert, kb and in no acute distress. Head/Face: Normocephalic, atraumatic. ENT: Nares patent. No nasal discharge, no septal abnormalities noted. Tympanic membranes are normal and external auditory canals are clear. Oropharynx with no redness, swelling, or masses, exudates, or evidence of obstruction, uvula midline. Mucous membranes moist. Neck: Trachea midline, no thyromegaly or masses palpated, and no cervical lymphadenopathy. Supple, full range of motion without nuchal rigidity, or vertebral point tenderness. No Meningismus. Chest/axilla: Normal chest wall appearance and motion. Nontender with no deformity. No lesions are appreciated. Cardiovascular: Regular rate and rhythm with a normal S1 and S2. No gallops, murmurs, or rubs. Normal PMI, no JVD. No pulse deficits. Respiratory: Lungs have equal breath sounds bilaterally, clear to auscultation and percussion. No rales, rhonchi or wheezes noted. No increased work of breathing, no retractions or nasal flaring. Abdomen/GI: Soft, non-tender, with normal bowel sounds. No distension or tympany. No guarding or rebound. No evidence of tenderness throughout. Skin: Warm, dry with normal turgor. Normal color with no rashes, no lesions, and no evidence of cellulitis. MS/ Extremity: Pulses equal, no cyanosis. Neurovascular intact. Full, normal range of motion. Neuro: Awake and alert, GCS 15, oriented to person, place, time, and situation. Cranial nerves II-XII grossly intact. Motor strength 5/5 in all extremities. Sensory grossly intact. Cerebellar exam normal. Normal gait. Vital Signs: 18:05 BP 128 / 80; Pulse 109; Resp 19 S; Temp 100.8(TE); Pulse Ox 99% on R/A; Weight 69.4 kg jd3 (R); Height 4 ft. 10 in. (147.32 cm) (R); Pain 8/10; 19:47 BP 108 / 70; Pulse 90; Resp 18; Pulse Ox 100% ; ll1 20:11 BP 117 / 85; Pulse 88; Resp 18; Temp 98.3; Pulse Ox 100% ; ll1 18:05 Body Mass Index 31.98 (69.40 kg, 147.32 cm) jd3 MDM: 18:23 Patient medically screened. kb 20:00 Data reviewed: vital signs, nurses notes. Data interpreted: Pulse oximetry: on room air kb is 100 %. Interpretation: normal. Counseling: I had a detailed discussion with the patient and/or guardian regarding: the historical points, exam findings, and any diagnostic results supporting the discharge/admit diagnosis, lab results, radiology results, the need for outpatient follow up, a family practitioner, to return to the emergency department if symptoms worsen or persist or if there are any questions or concerns that arise at home. 21:35 ED course: Pt feeling better and tolerating PO intake prior to arrival. kb 07/02 18:31 Order name: Basic Metabolic Panel; Complete Time: 19:33 kb 07/02 18:31 Order name: CBC with Diff; Complete Time: 19:30 kb 07/02 18:31 Order name: D-Dimer; Complete Time: 19:30 kb 07/02 18:31 Order name: COVID-19 07/02 20:07 Order name: Urine Dipstick--Ancillary (enter results) [facility] 07/02 20:07 Order name: Urine --Ancillary (enter results) ar 07/02 18:31 Order name: IV Saline Lock; Complete Time: 19:03 kb 07/02 18:31 Order name: Labs collected and sent; Complete Time: 19:03 kb 07/02 18:31 Order name: Urine Dipstick-Ancillary (obtain specimen); Complete Time: 19:54 kb 07/02 18:31 Order name: Chest Single View XRAY; Complete Time: 19:07 kb 07/02 18:31 Order name: EKG; Complete Time: 18:31 kb 07/02 18:31 Order name: Urine Test (obtain specimen); Complete Time: 19:54 kb 07/02 18:31 Order name: EKG - Nurse/Tech; Complete Time: 19:17 kb 07/02 19:34 Order name: PO challenge; Complete Time: 19:53 kb Administered Medications: 19:02 Drug: Zofran (Ondansetron) 4 mg Route: IVP; Site: right antecubital; ll1 19:53 Follow up: Response: No adverse reaction; RASS: Alert and Calm (0) ll1 19:02 Drug: Tylenol 1000 mg Route: PO; ll1 19:53 Follow up: Response: No adverse reaction; RASS: Alert and Calm (0) ll1 19:03 Drug: NS 0.9% 1000 ml Route: IV; Rate: 1000 ml; Site: right antecubital; ll1 19:53 Follow up: Response: No adverse reaction; RASS: Alert and Calm (0); IV Status: ll1 Completed infusion; IV Intake: 1000ml Disposition: 07/02/20 20:01 Discharged to Home. Impression: Acute upper respiratory infection, unspecified, Nausea and vomiting. - Condition is Stable. - Discharge Instructions: Nausea and Vomiting, Adult, Htpt-aq-[id number], Viral Respiratory Infection, Xjqy-Rp-Aeyx, COVID-19. - Prescriptions for Zofran 4 mg Oral Tablet - take 1 tablet by ORAL route every 6 hours As needed; 20 tablet. Albuterol Sulfate 90 mcg/actuation - inhale 1-2 puff by INHALATION route every 4-6 hours; 1 Inhaler. - Medication Reconciliation Form, Thank You Letter, Antibiotic Education, Prescription Opioid Use form. - Follow up: Emergency Department; When: As needed; Reason: Worsening of condition. Follow up: Private Physician; When: 2 - 3 days; Reason: Recheck today's complaints, Continuance of care, Re-evaluation by your physician. Signatures: Dispatcher [employer] EDIvonne Bhardwaj, SENIOR CLINICAL DATA ANALYST-C SENIOR CLINICAL DATA ANALYST-Alex Rodgers RN RN Yvette Shelley RN RN ll1 Corrections: (The following items were deleted from the chart) 20:14 20:01 07/02/2020 20:01 Discharged to Home. Impression: Acute upper respiratory ll1 infection, unspecified; Nausea and vomiting. Condition is Stable. Forms are Medication Reconciliation Form, Thank You Letter, Antibiotic Education, Prescription Opioid Use. Follow up: Emergency Department; When: As needed; Reason: Worsening of condition. Follow up: Private Physician; When: 2 - 3 days; Reason: Recheck today's complaints, Continuance of care, Re-evaluation by your physician. kb
[2020-07-02 20:47] VITALS: O2SAT 100
[2020-07-02 20:48] VITALS: BP 117/85; TEMP 98.3
[2020-07-02 21:54] LABS: Urine Blood NEGATIVE (NEG); Urine Glucose NEGATIVE (NEG); Urine Protein NEGATIVE (NEG); Urine pH 5.5 (5.0-7.0)
--- NOTE | 2020-07-04 09:47 | EKG ---
Test Date: 2020-07-02 Test Time: 19:13:25 Infantry Officer: STEFFI MEASUREMENT RESULTS: Intervals: Rate: 88 CT: 164 QRSD: 76 QT: 354 QTc: 428 [place]: P: 36 CT: 164 QRS: 48 T: 38 INTERPRETIVE STATEMENTS: Normal sinus rhythm Normal ECG Compared to ECG 03/31/2018 14:24:58 Early repolarization no longer present Electronically Signed On 07-04-20 09:44:38 CDT by Can Mauricio
== END 2020-07-02 20:14 | disposition home or self-care (01) ==
LOC: ER 17:57
DX: J06.9 Acute upper respiratory infection, unspecified (principal); Z20.828 Contact with and (suspected) exposure to other viral communicable diseases; R11.2 Nausea with vomiting, unspecified; Z88.5 Allergy status to narcotic agent
CPT/HCPCS: 36415; 71045; 80048; 81003; 81025; 85025; 85379; 93005; 96361; 96374; 99284; J2405; J7030; U0002

== ENCOUNTER 2020-12-23 23:54 | Emergency (ER) | payer OTHER, SELFPAY ==
--- OUTSIDE RECORDS SUMMARY | 2020-12-23 23:57 | XMS REPORT | Continuity of Care Document ---
:1995 Author Organization [facility] t Address [address] [place] [address] Dr. [address]. [address] [place] [address] Care Team Providers Name Role Phone Kinsey Machuca Attending Clinician Problems This patient has no known problems. Allergies, Adverse Reactions, Alerts This patient has no known allergies or adverse reactions. Medications This patient has no known medications. Procedures This patient has no known procedures. 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
[2020-12-24 00:49] LABS: Urine Blood NEGATIVE (NEG); Urine Glucose NEGATIVE (NEG); Urine Protein NEGATIVE (NEG); Urine Specific Gravity 1.015 (1.005-1.030)
[2020-12-24 01:18] LABS: Absolute Lymphocytes (CBC) 2.1 K/uL (0.7-4.9); Basophils % 0.6 % (0-1.3); Hematocrit 38.3 % (36.0-45.0); Lymphocytes % 20.9 % (15.3-44.8); MPV 8.3 fL (7.6-11.3)
[2020-12-24 01:52] LABS: BUN Blood Urea Nitrogen 8 mg/dL (7-18); Bicarbonate 25 mmol/L (21-32); Glucose Level 97 mg/dL (74-106); HCG, Quantitative 12770 mIU/mL (1-3); Sodium Level 141 mmol/L (136-145)
--- NOTE | 2020-12-24 02:37 | ER ---
Nurse's Notes [facility] Name: Beena Garcia Age: 25 yrs Sex: Female : 1995 Arrival Date: 12/23/2020 Time: 23:57 Bed 7 Private MD: Diagnosis: Threatened Presentation: 12/24 00:03 Chief complaint: Patient states: Unsure how long into , Pt stated she was wh bleeding yesterday and spotting today. Coronavirus screen: Client denies travel out of the [place] in the last 14 days. At this time, the client does not indicate any symptoms associated with coronavirus-19. Ebola Screen: Patient negative for fever greater than or equal to 101.5 degrees Fahrenheit, and additional compatible Ebola Virus Disease symptoms Patient denies exposure to infectious person. Risk Assessment: Do you want to hurt yourself or someone else? Patient reports no desire to harm self or others. Onset of symptoms was December 24, 2020. 00:03 Method Of Arrival: Ambulatory 00:03 Acuity: LETTY 3 00:07 Initial Sepsis Screen: Does the patient meet any 2 criteria? HR > 90 bpm. Does the patient have a suspected source of infection? No. Patient's initial sepsis screen is negative. 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 - Social history:: Smoking status: Patient/guardian denies using. Screenin:08 Abuse screen: Denies threats or abuse. Denies injuries from another. Nutritional screening: No deficits noted. Tuberculosis screening: No symptoms or risk factors identified. Fall Risk None identified. Assessment: 00:04 General: Appears in no apparent distress. Behavior is calm, cooperative, appropriate for age. Pain: Denies pain. Neuro: Level of Consciousness is awake, alert, obeys commands, Oriented to person, place, time, situation, Appropriate for age. Cardiovascular: Capillary refill < 3 seconds. Respiratory: Airway is patent Respiratory effort is even, unlabored, Respiratory pattern is regular, symmetrical. GI: Abdomen is round non-distended. : Reports vaginal bleeding that is. EENT: No signs and/or symptoms were reported regarding the EENT system. Derm: No signs and/or symptoms reported regarding the dermatologic system. Musculoskeletal: Circulation, motion, and sensation intact. 01:28 Reassessment: Patient appears in no apparent distress at this time. No changes from previously documented assessment. Patient and/or family updated on plan of care and expected duration. Pain level reassessed. Patient is alert, oriented x 3, equal unlabored respirations, skin warm/dry/pink. Vital Signs: 00:07 BP 119 / 76; Pulse 94; Resp 18; Temp 98.8; Pulse Ox 100% ; Weight 68.04 kg; Height 5 wh ft. 0 in. (152.40 cm); Pain 0/10; 01:15 BP 111 / 74; Pulse 85; Resp 18; Pulse Ox 100% on R/A; wh 02:50 BP 112 / 65; Pulse 80; Resp 18; Pulse Ox 100% on R/A; mg2 00:07 Body Mass Index 29.29 (68.04 kg, 152.40 cm) ED Course: 12/23 23:57 Patient arrived in ED. cf2 0305 00:02 Nikhil Macdonald PA is PHCP. cp 00:02 Nikhil Agustin MD is Attending Physician. cp 00:03 Erich Antonio, RN is Primary Nurse. 00:04 Triage completed. 00:08 Arm band placed on right wrist. wh 00:10 Patient has correct armband on for positive identification. Placed in gown. Bed in low wh position. Call light in reach. Side rails up X 1. Pulse ox on. NIBP on. 00:10 Inserted saline lock: 20 gauge in right antecubital area, using aseptic technique. Blood collected. 01:59 Patient taken to ultrasound. via wheelchair. lc3 02:14 No provider procedures requiring assistance completed. mg2 02:22 US Transvaginal Ob In Process Unspecified. EDMS 02:28 Ultrasound completed. Patient moved back from ultrasound. lc3 02:35 Reji Comer MD is Referral Physician. cp 02:53 IV discontinued, intact, bleeding controlled, No redness/swelling at site. Pressure mg2 dressing applied. Administered Medications: No medications were administered Outcome: 02:36 Discharge ordered by . gisselle 02:53 Discharged to home ambulatory. mg2 02:53 Condition: stable 02:53 Discharge instructions given to patient, Instructed on discharge instructions, follow up and referral plans. medication usage, Demonstrated understanding of instructions, follow-up care, medications, Prescriptions given X 1. 02:53 Patient left the ED. mg2 Signatures: Dispatcher [employer] EDMS Nikhil Macdonald PA PA cp Cunningham, Laulita lc3 Habalo, Winsy, RN RN Donald Carty RN RN mg2 Thomas Ace cf2
--- NOTE | 2020-12-24 02:37 | EDPHYS ---
Physician Documentation [facility] Name: Beena Garcia Age: 25 yrs Sex: Female : 1995 Arrival Date: 12/23/2020 Time: 23:57 Bed 7 Private MD: ED Physician Nikhil Agustin HPI: 12/24 00:20 This 25 yrs old Female presents to ER via Ambulatory with complaints of cp Vaginal Bleeding, + Preg <12wks. 00:20 The patient presents to the emergency department with vaginal bleeding, described as cp spotting. course: care: none, Ultrasound: the patient has not had an ultrasound. Associated signs and symptoms: Pertinent negatives: abdominal pain, dysuria, fever, vomiting. 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 - Social history:: Smoking status: Patient/guardian denies using. ROS: 00:25 Constitutional: Negative for body aches, chills, fever, poor PO intake. cp 00:25 Eyes: Negative for injury, pain, redness, and discharge. cp 00:25 ENT: Negative for ear pain, sore throat, difficulty swallowing, difficulty handling secretions. 00:25 Cardiovascular: Negative for chest pain. 00:25 Respiratory: Negative for cough, shortness of breath, wheezing. 00:25 Abdomen/GI: Negative for abdominal pain, nausea, vomiting, and diarrhea. 00:25 : Positive for vaginal bleeding, Negative for urinary symptoms, flank pain. 00:25 Neuro: Negative for weakness. 00:25 All other systems are negative. Exam: 00:30 Constitutional: The patient appears in no acute distress, alert, awake, comfortable, cp non-toxic, well developed, well nourished. 00:30 Head/Face: Normocephalic, atraumatic. cp 00:30 Eyes: Periorbital structures: appear normal, Conjunctiva: normal, no exudate, no injection, Lids and lashes: appear normal, bilaterally. 00:30 ENT: External ear(s): are unremarkable, Nose: is normal, Posterior pharynx: Airway: no evidence of obstruction, patent. 00:30 Chest/axilla: Inspection: normal, Palpation: is normal, no crepitus, no tenderness. 00:30 Cardiovascular: Rate: normal, Rhythm: regular. 00:30 Respiratory: the patient does not display signs of respiratory distress, Respirations: normal, no use of accessory muscles, no retractions, labored breathing, is not present, Breath sounds: are clear throughout, no decreased breath sounds, no stridor, no wheezing. 00:30 Abdomen/GI: Inspection: abdomen appears normal, Bowel sounds: active, all quadrants, Palpation: abdomen is soft and non-tender, in all quadrants, rebound tenderness, is not appreciated, involuntary guarding, is not appreciated. 00:30 Back: pain, is absent, ROM is normal. Vital Signs: 00:07 BP 119 / 76; Pulse 94; Resp 18; Temp 98.8; Pulse Ox 100% ; Weight 68.04 kg; Height 5 wh ft. 0 in. (152.40 cm); Pain 0/10; 01:15 BP 111 / 74; Pulse 85; Resp 18; Pulse Ox 100% on R/A; wh 02:50 BP 112 / 65; Pulse 80; Resp 18; Pulse Ox 100% on R/A; mg2 00:07 Body Mass Index 29.29 (68.04 kg, 152.40 cm) MDM: 00:05 Patient medically screened. [facility] 02:31 Data reviewed: vital signs, nurses notes, lab test result(s), US tech reports transvaginal US shows IUP estimated at 6 weeks 1 day. No FHR detected. 12/24 00:14 Order name: Urine Dipstick--Ancillary (enter results) tt3 12/24 00:14 Order name: Urine --Ancillary (enter results) tt3 12/24 00:22 Order name: Quantitative Hcg; Complete Time: 02:33 12/24 02:33 Interpretation: HCGQ 37027. 12/24 00:22 Order name: Abo/rh Typing; Complete Time: 02:33 12/24 02:33 Interpretation: Reviewed. 12/24 00:22 Order name: Basic Metabolic Panel; Complete Time: 02:33 cp 12/24 02:33 Interpretation: Normal except: CL 108. cp 12/24 00:22 Order name: CBC with Diff; Complete Time: 02:33 cp 12/24 00:13 Order name: Urine Dipstick-Ancillary (obtain specimen); Complete Time: 00:13 wh 12/24 00:13 Order name: Urine Test (obtain specimen); Complete Time: 00:13 wh 12/24 00:22 Order name: US Transvaginal Ob cp 12/24 00:22 Order name: IV Saline Lock; Complete Time: 00:49 cp 12/24 00:49 Order name: Urine --Ancillary EDMT 12/24 00:49 Order name: Urine Dipstick-Ancillary EDMT 12/24 00:22 Order name: Labs collected and sent; Complete Time: 00:50 cp 12/24 00:22 Order name: NPO; Complete Time: 00:50 cp Administered Medications: No medications were administered Disposition: 05:52 Co-signature as Attending Physician, Nikhil Agustin MD I agree with the assessment and [facility] plan of care. Disposition: 12/24/20 02:36 Discharged to Home. Impression: Threatened . - Condition is Stable. - Discharge Instructions: Threatened Miscarriage, Vaginal Bleeding During , First Trimester, Pelvic Rest. - Prescriptions for Vitamin 27- 0.8 mg Oral Tablet - take 1 tablet by ORAL route once daily; 60 tablet. - Medication Reconciliation Form, Thank You Letter, Antibiotic Education, Prescription Opioid Use form. - Follow up: Reji Comer MD; When: 48 Hours; Reason: Repeat Beta-HCG (48 Hours), and repeat ultrasound in 1 week. - Problem is new. - Symptoms are unchanged. Signatures: Dispatcher [employer] EDNikhil Plaza MD MD cha Page, Corey, PA PA cp Habalo, Winsy, RN RN Donald Carty RN RN mg2 Micah, Minh tt3 Corrections: (The following items were deleted from the chart) 00:14 00:14 Urine Dipstick-Ancillary ordered. tt3 tt3 00:14 00:14 Urine Test ordered. tt3 tt3 02:53 02:36 12/24/2020 02:36 Discharged to Home. Impression: Threatened . Condition mg2 is Stable. Forms are Medication Reconciliation Form, Thank You Letter, Antibiotic Education, Prescription Opioid Use. Follow up: Reji Comer; When: 48 Hours; Reason: Repeat Beta-HCG (48 Hours), and repeat ultrasound in 1 week. Problem is new. Symptoms are unchanged. cp
[2020-12-24 03:42] VITALS: O2SAT 100
[2020-12-24 03:44] VITALS: TEMP 98.8
[2020-12-24 03:45] VITALS: BP 112/65
--- NOTE | 2020-12-24 11:11 | RAD REPORT ---
EXAM DESCRIPTION: US - Transvaginal OB - 12/24/2020 2:22 am CLINICAL HISTORY: 25 years, Female, VAGINAL BLEEDING COMPARISON: None. TECHNIQUE: Utilizing a transvaginal transducer, real-time ultrasound evaluation of the female pelvis was performed. Color Doppler imaging was used to assess vascular flow. FINDINGS: The uterus measures 8.1 x 4.9 x 5.6 cm. A gestational sac demonstrate normal shape and con figuration with multiple measurements giving a ultrasonographic mean measurement of 1.43 cm correspon ding to a ultrasonographic gestational age of 6 weeks and 0 days, a embryo was identified with a [place] n-rump length measurement of 0.47 cm corresponding to a ultrasonographic gestational age of 6 weeks a nd 1 day, this gave a mean measurement of 6 weeks 1 day with an estimated date of delivery of August 18, 2021, yolk sac was identified measuring 3.3 mm, no cardiac activity was documented. No subchorio mak hemorrhage and/or implantation bleed was identified. The right ovary measured 2.2 x 1.5 x 1.3 cm, the left ovary measures 2.9 x 1.7 x 3.1 cm. There is nor mal vascular flow and spectral waveforms with no evidence for torsion. No free fluid was identified in the posterior cul-de-sac, no adnexal masses seen. IMPRESSION: SINGLE EARLY LIVING INTRAUTERINE CORRESPONDING TO A ULTRASONOGRAPHIC GESTATION AL AGE OF 6 WEEKS AND 1 DAY. NO CARDIAC ACTIVITY WAS DOCUMENTED. YOLK SAC WAS SEEN. Electronically signed by: Kyle Bernal MD 12/24/2020 3:06 AM [facility] Due to temporary technical issues with the PACS/Fluency reporting system, reports are being signed by the in house radiologist without review as a courtesy to ensure prompt reporting. The interpreting r adiologist is fully responsible for the content of the report.
== END 2020-12-24 02:53 | disposition home or self-care (01) ==
LOC: ER 23:54
DX: O20.0 Threatened abortion (principal); Z3A.09 9 weeks gestation of pregnancy; Z88.5 Allergy status to narcotic agent
CPT/HCPCS: 36415; 76817; 80048; 81003; 81025; 84702; 85025; 86900; 86901; 99284

== ENCOUNTER 2020-12-27 16:18 | Emergency (ER) | payer OTHER, SELFPAY ==
--- OUTSIDE RECORDS SUMMARY | 2020-12-27 16:20 | XMS REPORT | Continuity of Care Document ---
:1995 Author Organization [facility] t Address [address] [place] [address] Dr. Herbert. 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
[2020-12-27 20:20] LABS: Urine Blood 2+ (NEG); Urine Glucose 2+ (NEG); Urine Protein NEGATIVE (NEG); Urine Specific Gravity 1.025 (1.005-1.030)
--- NOTE | 2020-12-27 20:21 | RAD REPORT ---
EXAM DESCRIPTION: US - Transvaginal OB - 12/27/2020 8:03 pm CLINICAL HISTORY: Abd cramping, ;Vaginal bleeding COMPARISON: Transvaginal OB dated 12/24/2020 FINDINGS: A single gestational sac is seen within the uterus. The shape of the sac is within normal limits for gestational age. A small adjacent 3 mm cystic area is noted. A possible early pole w ith 4 mm CRL is noted estimated gestational age 6 weeks 2 days. There is no cardiac activity seen. The maternal adnexa are within normal limits. Normal flow to the left ovary. The right ovary was not well seen due to bowel gas. IMPRESSION: Early IUP remains a possibility although no embryonic cardiac activity noted. Recommend short interval follow-up pelvic sonogram in 7 days and serial HCG levels.
[2020-12-27 21:07] LABS: Absolute Lymphocytes (CBC) 1.9 K/uL (0.7-4.9); Basophils % 0.2 % (0-1.3); Hematocrit 39.8 % (36.0-45.0); Lymphocytes % 17.2 % (15.3-44.8); MPV 8.3 fL (7.6-11.3)
[2020-12-27 21:16] LABS: BUN Blood Urea Nitrogen 10 mg/dL (7-18); Bicarbonate 26 mmol/L (21-32); Glucose Level 123 mg/dL (74-106); HCG, Quantitative 13565 mIU/mL (1-3); Potassium 3.5 mmol/L (3.5-5.1); Sodium Level 141 mmol/L (136-145)
--- NOTE | 2020-12-27 21:21 | ER ---
Nurse's Notes [facility] Name: Beena Garcia Age: 25 yrs Sex: Female : 1995 Arrival Date: 12/27/2020 Time: 16:21 Bed 16 Private MD: Diagnosis: Threatened Presentation: 12/27 16:42 Chief complaint: Patient states: Vaginal bleeding has gotten worse since her visit here ll1 last week. + pelvic cramping. Found out she was 6 weeks last visit. G2, P0. Coronavirus screen: Client denies travel out of the [place] in the last 14 days. At this time, the client does not indicate any symptoms associated with coronavirus-19. Ebola Screen: Patient denies travel to an Ebola-affected area in the 21 days before illness onset. Initial Sepsis Screen: Does the patient meet any 2 criteria? No. Patient's initial sepsis screen is negative. Does the patient have a suspected source of infection? Yes: Acute abdominal pain. Risk Assessment: Do you want to hurt yourself or someone else? Patient reports no desire to harm self or others. Onset of symptoms was January 12, 2021. 16:42 Method Of Arrival: Ambulatory ll1 16:42 Acuity: LETTY 3 ll1 Historical: - Allergies: 16:45 Codeine (Hives); ll1 - PMHx: 16:45 miscarriage; UTI; ll1 - PSHx: 16:45 None; ll1 - Immunization history:: Flu vaccine is not up to date. - Social history:: Smoking status: Patient denies any tobacco usage or history of. Screenin:15 Abuse screen: Denies threats or abuse. Nutritional screening: No deficits noted. jb4 Tuberculosis screening: No symptoms or risk factors identified. Fall Risk None identified. Assessment: 19:15 General: Appears in no apparent distress. comfortable, Behavior is calm, cooperative, jb4 appropriate for age. Pain: Denies pain. Neuro: Level of Consciousness is awake, alert, obeys commands, Oriented to person, place, time, situation. Cardiovascular: Patient's skin is warm and dry. Respiratory: Airway is patent Respiratory effort is even, unlabored, Respiratory pattern is regular, symmetrical. GI: No signs and/or symptoms were reported involving the gastrointestinal system. : Reports vaginal bleeding that is. EENT: No signs and/or symptoms were reported regarding the EENT system. Derm: Skin is intact, Skin is pink, warm \T\ dry. Musculoskeletal: Circulation, motion, and sensation intact. Range of motion: intact in all extremities. 20:30 Reassessment: Patient appears in no apparent distress at this time. Patient and/or jb4 family updated on plan of care and expected duration. Pain level reassessed. Patient is alert, oriented x 3, equal unlabored respirations, skin warm/dry/pink. 21:22 Reassessment: Patient appears in no apparent distress at this time. Patient and/or jb4 family updated on plan of care and expected duration. Pain level reassessed. Patient is alert, oriented x 3, equal unlabored respirations, skin warm/dry/pink. Vital Signs: 16:42 BP 118 / 77; Pulse 87; Resp 16; Temp 98.7; Pulse Ox 98% ; Weight 68.04 kg; Height 5 ft. ll1 1 in. (154.94 cm); Pain 6/10; 20:30 BP 120 / 69; Pulse 88; Resp 16; Pulse Ox 98% on R/A; jb4 21:15 BP 108 / 62; Pulse 84; Resp 17; Pulse Ox 98% on R/A; jb4 16:42 Body Mass Index 28.34 (68.04 kg, 154.94 cm) ll1 ED Course: 16:21 Patient arrived in ED. mr 16:44 Triage completed. ll1 16:45 Arm band placed on. ll1 19:15 Patient has correct armband on for positive identification. Bed in low position. Call jb4 light in reach. Side rails up X 1. Pulse ox on. NIBP on. 19:20 Segun Kebede PA is PHCP. jr8 19:20 Nikhil Agustin MD is Attending Physician. jr8 19:48 Terrance Stanton, MISHA is Primary Nurse. jb4 20:03 Transvaginal Ob In Process Unspecified. EDMS 20:15 Inserted saline lock: 20 gauge in left antecubital area, using aseptic technique. Blood jb4 collected. 21:24 No provider procedures requiring assistance completed. Patient did not have IV access jb4 during this emergency room visit. Administered Medications: No medications were administered Outcome: 21:20 Discharge ordered by . jr8 21:34 Discharged to home ambulatory. jb4 21:34 Condition: stable 21:34 Discharge instructions given to patient, Instructed on discharge instructions, follow up and referral plans. Demonstrated understanding of instructions, follow-up care. 21:35 Patient left the ED. jb4 Signatures: Dispatcher [employer] Dafne Montenegro mr DelioSegun PA PA jr8 Terrance Stanton RN RN jb4 Yvette Hopper RN RN ll1
--- NOTE | 2020-12-27 21:21 | EDPHYS ---
Physician Documentation [facility] Name: Beena Garcia Age: 25 yrs Sex: Female : 1995 Arrival Date: 12/27/2020 Time: 16:21 Bed 16 Private MD: ED Physician Nikhil Agustin HPI: 12/27 19:51 This 25 yrs old Female presents to ER via Ambulatory with complaints of jr8 Vaginal Bleeding, + Preg <12wks. 19:51 The patient presents to the emergency department with vaginal bleeding, that is light, jr8 described as spotting. The estimated gestational age is 6 weeks. course: care: none, Leakage of Fluid: none appreciated, Ultrasound: the patient had an ultrasound, on December 23, 2020, Risk/complications: no obvious risks or complications are appreciated, Associated signs and symptoms: Pertinent positives: abdominal pain. It is unknown whether or not the patient has had similar symptoms in the past. The patient has been recently seen by a physician:. Patient stated that she was seen a few days ago for similar symptoms and had IUP. Stated that things had subsided but now bleeding had come back and is worse . Historical: - Allergies: 16:45 Codeine (Hives); ll1 - PMHx: 16:45 miscarriage; UTI; ll1 - PSHx: 16:45 None; ll1 - Immunization history:: Flu vaccine is not up to date. - Social history:: Smoking status: Patient denies any tobacco usage or history of. ROS: 19:51 Eyes: Negative for injury, pain, redness, and discharge, ENT: Negative for injury, jr8 pain, and discharge, Neck: Negative for injury, pain, and swelling, Cardiovascular: Negative for chest pain, palpitations, and edema, Respiratory: Negative for shortness of breath, cough, wheezing, and pleuritic chest pain, Abdomen/GI: Negative for abdominal pain, nausea, vomiting, diarrhea, and constipation, Back: Negative for injury and pain, MS/Extremity: Negative for injury and deformity, Skin: Negative for injury, rash, and discoloration, Neuro: Negative for headache, weakness, numbness, tingling, and seizure. 19:51 : Positive for vaginal bleeding. Exam: 19:51 Constitutional: This is a well developed, well nourished patient who is awake, alert, jr8 and in no acute distress. Cardiovascular: Regular rate and rhythm with a normal S1 and S2. No gallops, murmurs, or rubs. Normal PMI, no JVD. No pulse deficits. Respiratory: Lungs have equal breath sounds bilaterally, clear to auscultation and percussion. No rales, rhonchi or wheezes noted. No increased work of breathing, no retractions or nasal flaring. Abdomen/GI: Soft, non-tender, with normal bowel sounds. No distension or tympany. No guarding or rebound. No evidence of tenderness throughout. Back: No spinal tenderness. No costovertebral tenderness. Full range of motion. Skin: Warm, dry with normal turgor. Normal color with no rashes, no lesions, and no evidence of cellulitis. MS/ Extremity: Pulses equal, no cyanosis. Neurovascular intact. Full, normal range of motion. Neuro: Awake and alert, GCS 15, oriented to person, place, time, and situation. Cranial nerves II-XII grossly intact. Motor strength 5/5 in all extremities. Sensory grossly intact. Cerebellar exam normal. Normal gait. Vital Signs: 16:42 BP 118 / 77; Pulse 87; Resp 16; Temp 98.7; Pulse Ox 98% ; Weight 68.04 kg; Height 5 ft. ll1 1 in. (154.94 cm); Pain 6/10; 20:30 BP 120 / 69; Pulse 88; Resp 16; Pulse Ox 98% on R/A; jb4 21:15 BP 108 / 62; Pulse 84; Resp 17; Pulse Ox 98% on R/A; jb4 16:42 Body Mass Index 28.34 (68.04 kg, 154.94 cm) ll1 MDM: 19:21 Patient medically screened. jr8 21:19 Data reviewed: vital signs, nurses notes, lab test result(s), radiologic studies, jr8 ultrasound, and as a result, I will discharge patient. Data interpreted: Pulse oximetry: on room air is 98 %. Interpretation: normal. Counseling: I had a detailed discussion with the patient and/or guardian regarding: the historical points, exam findings, and any diagnostic results supporting the discharge/admit diagnosis, lab results, radiology results, the need for outpatient follow up, an OB/Gyne specialist, to return to the emergency department if symptoms worsen or persist or if there are any questions or concerns that arise at home. 12/27 19:22 Order name: Quantitative Hcg; Complete Time: 21:19 jr8 12/27 19:22 Order name: Basic Metabolic Panel; Complete Time: 21:19 jr8 12/27 19:22 Order name: CBC with Diff; Complete Time: 21:14 jr8 12/27 19:22 Order name: US Transvaginal Ob; Complete Time: 20:25 8 12/27 20:00 Order name: Urine Dipstick--Ancillary (enter results); Complete Time: 20:25 mw2 12/27 20:00 Order name: Urine --Ancillary (enter results); Complete Time: 20:25 2 12/27 19:22 Order name: IV Saline Lock; Complete Time: 20:34 jr8 12/27 19:22 Order name: Labs collected and sent; Complete Time: 20:34 jr8 12/27 19:22 Order name: NPO; Complete Time: 20: Administered Medications: No medications were administered Disposition: 12/28 06:44 Co-signature as Attending Physician, Nikhil Agustin MD I agree with the assessment and samson plan of care. Disposition: 12/27/20 21:20 Discharged to Home. Impression: Threatened . - Condition is Stable. - Discharge Instructions: Threatened Miscarriage, Vaginal Bleeding During , First Trimester, Pelvic Rest. - Medication Reconciliation Form, Thank You Letter, Antibiotic Education, Prescription Opioid Use form. - Follow up: Private Physician; When: 1 week; Reason: Recheck today's complaints, Continuance of care, Re-evaluation by your physician. - Problem is new. - Symptoms have improved. Signatures: Dispatcher [employer] Nikhil Mcpherson MD MD cha Roszak, Josh, PA PA jr8 Terrance Stanton RN RN jb4 Yvette Hopper RN RN ll1 Corrections: (The following items were deleted from the chart) 12/27 21:35 21:20 12/27/2020 21:20 Discharged to Home. Impression: Threatened . Condition jb4 is Stable. Forms are Medication Reconciliation Form, Thank You Letter, Antibiotic Education, Prescription Opioid Use. Follow up: Private Physician; When: 1 week; Reason: Recheck today's complaints, Continuance of care, Re-evaluation by your physician. Problem is new. Symptoms have improved. jr8
[2020-12-27 21:58] VITALS: TEMP 98.7; O2SAT 98
[2020-12-27 22:00] VITALS: BP 108/62
== END 2020-12-27 21:35 | disposition home or self-care (01) ==
LOC: ER 16:18
DX: O20.0 Threatened abortion (principal); Z88.5 Allergy status to narcotic agent
CPT/HCPCS: 36415; 76817; 80048; 81003; 81025; 84702; 85025; 99284

== ENCOUNTER 2021-03-25 21:04 | Emergency (ER) | payer OTHER ==
--- OUTSIDE RECORDS SUMMARY | 2021-03-25 21:06 | XMS REPORT | Continuity of Care Document ---
:1995 Author Organization [facility] t Address [address] [place] [address] [address] [place] [address] Care Team Providers Name Role Phone Beatriz Parisi Attending Clinician Problems This patient has no known problems. Allergies, Adverse Reactions, Alerts This patient has no known allergies or adverse reactions. Medications This patient has no known medications. Procedures This patient has no known procedures. Encounters Start End Encounter Admission Attending Care Care Encounter Source Date/Time Date/Time Type Type Clinicians Facility Department ID 2021-03-25 2021-03-25 Telephone LEANN Hicks [id number] 00:00:00 00:00:00 Dai Henderson MEDICAID PLAN COMPLIANCE DIRECTOR [id number] [facility] [id number] MATERNAL [id number] & CHILD [address] [place] [address] Results This patient has no known results.
[2021-03-25 21:46] LABS: Urine Blood 3+ (Negative); Urine Glucose Negative (Negative); Urine Protein Negative (Negative); Urine Specific Gravity 1.015 (1.005-1.030)
[2021-03-25 22:08] LABS: Urine Specific Gravity/Preg 1.015 (1.005-1.030)
[2021-03-25 22:17] LABS: Absolute Lymphocytes (CBC) 2.7 K/uL (0.7-4.9); Basophils % 0.3 % (0-1.3); Lymphocytes % 22.9 % (15.3-44.8); MPV 8.1 fL (7.6-11.3); RBC Red Blood Cell Count 4.49 M/uL (3.86-4.86)
--- NOTE | 2021-03-25 22:36 | ER ---
Nurse's Notes [facility] Name: Beena Gracia Age: 25 yrs Sex: Female : 1995 Arrival Date: 03/25/2021 Time: 21:15 Bed 18 Private MD: Diagnosis: Threatened Presentation: 03/25 21:23 Chief complaint: Patient states: I found out I was 2 weeks ago. I started jb4 spotting on Sunday and now tonight I am just steadily bleeding. There are no cramps or pain. This is my third and the other 2 were miscarriages. Coronavirus screen: Client denies travel out of the [place] in the last 14 days. At this time, the client does not indicate any symptoms associated with coronavirus-19. Ebola Screen: No symptoms or risks identified at this time. Initial Sepsis Screen: Does the patient meet any 2 criteria? No. Patient's initial sepsis screen is negative. Does the patient have a suspected source of infection? No. Patient's initial sepsis screen is negative. Risk Assessment: Do you want to hurt yourself or someone else? Patient reports no desire to harm self or others. Onset of symptoms was March 25, 2021. Transition of care: patient was not received from another setting of care. 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 - Social history:: Smoking status: Patient denies any tobacco usage or history of. Patient/guardian denies using alcohol, street drugs. Screenin:20 Abuse screen: Denies threats or abuse. Nutritional screening: No deficits noted. jb4 Tuberculosis screening: No symptoms or risk factors identified. Fall Risk None identified. Assessment: 21:20 General: Appears in no apparent distress. comfortable, Behavior is calm, cooperative, jb4 appropriate for age. Pain: Denies pain. Neuro: Level of Consciousness is awake, alert, obeys commands, Oriented to person, place, time, situation. Cardiovascular: Patient's skin is warm and dry. Respiratory: Airway is patent Respiratory effort is even, unlabored, Respiratory pattern is regular, symmetrical. GI: No signs and/or symptoms were reported involving the gastrointestinal system. : Reports vaginal bleeding that is bright red. EENT: No signs and/or symptoms were reported regarding the EENT system. Derm: Skin is intact, Skin is pink, warm \T\ dry. Musculoskeletal: Circulation, motion, and sensation intact. Range of motion: intact in all extremities. 22:15 Reassessment: Patient appears in no apparent distress at this time. Patient and/or jb4 family updated on plan of care and expected duration. Pain level reassessed. Patient is alert, oriented x 3, equal unlabored respirations, skin warm/dry/pink. Vital Signs: 21:23 BP 114 / 67; Pulse 70; Resp 16; Temp 98.3(O); Pulse Ox 100% on R/A; Weight 66.68 kg jb4 (R); Height 5 ft. 0 in. (152.40 cm) (R); Pain 0/10; 22:15 BP 111 / 87; Pulse 76; Resp 16; Pulse Ox 100% on R/A; jb4 21:23 Body Mass Index 28.71 (66.68 kg, 152.40 cm) [facility] ED Course: 21:15 Patient arrived in ED. bb 21:17 Urban Cheung MD is Attending Physician. tw4 21:17 Terrance Stanton, RN is Primary Nurse. jb4 21:20 Patient has correct armband on for positive identification. Bed in low position. Call [facility] light in reach. Side rails up X 1. Pulse ox on. NIBP on. 21:25 Triage completed. jb4 21:26 Arm band placed on right wrist. jb4 21:52 OB Limited US In Process Unspecified. EDMS 22:05 Initial lab(s) drawn, by me, sent to lab. Inserted saline lock: 20 gauge in right jb4 antecubital area, using aseptic technique. Blood collected. 22:56 No provider procedures requiring assistance completed. IV discontinued, intact, jb4 bleeding controlled, No redness/swelling at site. Pressure dressing applied. Administered Medications: No medications were administered Outcome: 22:36 Discharge ordered by . tw4 22:56 Discharged to home ambulatory, with family. jb4 22:56 Condition: stable 22:56 Discharge instructions given to patient, Instructed on discharge instructions, follow up and referral plans. Demonstrated understanding of instructions, follow-up care. 22:56 Patient left the ED. jb4 Signatures: Dispatcher [employer] EDEna Poole RN RN bb Bryson, James, RN RN jb4 Urban Cheung MD MD tw4
--- NOTE | 2021-03-25 22:37 | EDPHYS ---
Physician Documentation [facility] Name: Beena Garcia Age: 25 yrs Sex: Female : 1995 Arrival Date: 03/25/2021 Time: 21:15 Bed 18 Private MD: ED Physician Urban Cheung HPI: 03/26 06:40 This 25 yrs old Female presents to ER via Ambulatory with complaints of tw4 Vaginal Bleeding, + Preg <12wks. 06:40 The patient presents to the emergency department with vaginal bleeding. The patient tw4 presents to the emergency department with vaginal bleeding. The estimated gestational age is 6 weeks. course: care:. Previous pregnancies: in previous pregnancies patient has had Associated signs and symptoms: The patient has no apparent associated signs or symptoms. The patient has not experienced similar symptoms in the past. 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 - Social history:: Smoking status: Patient denies any tobacco usage or history of. Patient/guardian denies using alcohol, street drugs. ROS: 03/26 06:40 Constitutional: Negative for fever, chills, and weight loss, Eyes: Negative for injury, tw4 pain, redness, and discharge, Cardiovascular: Negative for chest pain, palpitations, and edema, Respiratory: Negative for shortness of breath, cough, wheezing, and pleuritic chest pain, Abdomen/GI: Negative for abdominal pain, nausea, vomiting, diarrhea, and constipation, Back: Negative for injury and pain. Neuro: Negative for headache, weakness, numbness, tingling, and seizure, Psych: Negative for depression, anxiety, suicide ideation, homicidal ideation, and hallucinations. : Positive for vaginal bleeding. Exam: 06:40 Constitutional: This is a well developed, well nourished patient who is awake, alert, tw4 and in no acute distress. Head/Face: Normocephalic, atraumatic. Chest/axilla: Normal chest wall appearance and motion. Nontender with no deformity. No lesions are appreciated. Cardiovascular: Regular rate and rhythm with a normal S1 and S2. No gallops, murmurs, or rubs. Normal PMI, no JVD. No pulse deficits. Respiratory: Lungs have equal breath sounds bilaterally, clear to auscultation and percussion. No rales, rhonchi or wheezes noted. No increased work of breathing, no retractions or nasal flaring. Abdomen/GI: Soft, non-tender, with normal bowel sounds. No distension or tympany. No guarding or rebound. No evidence of tenderness throughout. Back: No spinal tenderness. No costovertebral tenderness. Full range of motion. MS/ Extremity: Pulses equal, no cyanosis. Neurovascular intact. Full, normal range of motion. Neuro: Awake and alert, GCS 15, oriented to person, place, time, and situation. Cranial nerves II-XII grossly intact. Motor strength 5/5 in all extremities. Sensory grossly intact. Cerebellar exam normal. Normal gait. Vital Signs: 03/25 21:23 BP 114 / 67; Pulse 70; Resp 16; Temp 98.3(O); Pulse Ox 100% on R/A; Weight 66.68 kg jb4 (R); Height 5 ft. 0 in. (152.40 cm) (R); Pain 0/10; 22:15 BP 111 / 87; Pulse 76; Resp 16; Pulse Ox 100% on R/A; jb4 21:23 Body Mass Index 28.71 (66.68 kg, 152.40 cm) jb4 MDM: 22:36 Patient medically screened. 4 03/26 06:40 Data reviewed: vital signs, nurses notes. Data interpreted: Pulse oximetry: tw4 Interpretation: normal. Counseling: I had a detailed discussion with the patient and/or guardian regarding: the historical points, exam findings, and any diagnostic results supporting the discharge/admit diagnosis. Special discussion: I discussed with the patient/guardian in detail that at this point there is no indication for admission to the hospital. It is understood, however, that if the symptoms persist or worsen the patient needs to return immediately for re-evaluation. 03/25 21:17 Order name: Quantitative Hcg [facility] 03/25 21:17 Order name: Abo/rh Typing; Complete Time: :35 [facility] 03/25 21:17 Order name: Basic Metabolic Panel [facility] 03/25 21:17 Order name: CBC with Diff [facility] 03/25 21:45 Order name: Urine Dipstick-Ancillary EDMS 03/25 21:48 Order name: Urine --Ancillary (enter results) [facility] 03/25 21:17 Order name: Urine Test (obtain specimen); Complete Time: 21:46 [facility] 03/25 21:17 Order name: IV Saline Lock; Complete Time: 22:15 tw4 03/25 21:17 Order name: Labs collected and sent; Complete Time: 22:15 4 03/25 21:17 Order name: NPO; Complete Time: 21:39 [facility] 03/25 21:17 Order name: Urine Dipstick-Ancillary (obtain specimen); Complete Time: 21:46 [facility] 03/25 21:17 Order name: OB Limited US [facility] 03/25 21:49 Order name: Urine --Ancillary EDNM Administered Medications: No medications were administered Disposition: 03/25/21 22:36 Discharged to Home. Impression: Threatened . - Condition is Stable. - Discharge Instructions: Threatened Miscarriage, Vaginal Bleeding During , First Trimester, [id number]. - Medication Reconciliation Form, Thank You Letter, Antibiotic Education, Prescription Opioid Use form. - Follow up: Private Physician; When: Upon discharge from the Emergency Department; Reason: Recheck today's complaints, Continuance of care, Re-evaluation by your physician. - Problem is new. - Symptoms have improved. Signatures: Dispatcher [facility] Terrance Stanton RN RN jb4 Urban Cheung MD MD tw4 Corrections: (The following items were deleted from the chart) 03/25 22:56 22:36 03/25/2021 22:36 Discharged to Home. Impression: Threatened . Condition jb4 is Stable. Forms are Medication Reconciliation Form, Thank You Letter, Antibiotic Education, Prescription Opioid Use. Follow up: Private Physician; When: Upon discharge from the Emergency Department; Reason: Recheck today's complaints, Continuance of care, Re-evaluation by your physician. Problem is new. Symptoms have improved. tw4
[2021-03-25 22:48] LABS: BUN Blood Urea Nitrogen 12 mg/dL (7-18); Bicarbonate 25 mmol/L (21-32); Glucose Level 109 mg/dL (74-106); HCG, Quantitative 35293 mIU/mL (1-3); Sodium Level 139 mmol/L (136-145)
[2021-03-25 23:05] VITALS: TEMP 98.3; O2SAT 100
[2021-03-25 23:07] VITALS: BP 111/87
--- NOTE | 2021-03-26 09:10 | RAD REPORT ---
EXAM DESCRIPTION: US - OB Limited - 03/25/2021 9:52 pm CLINICAL HISTORY: VAGINAL BLEEDING Pelvic pain COMPARISON: Transvaginal OB dated 12/27/2020 FINDINGS: A single gestational sac is seen within the uterus. The shape of the sac is within normal limits for gestational age. Within the sac is a single pole with crown-rump length of 3 mm, cor relating to estimated gestational age of 6 weeks 0 days. Estimated date of delivery is 11/18/2021. Heart rate could not be accurately obtained. The placenta is not yet developed due to early gestational age. Small inferior subchorionic bleed joanna suring 8 x 5 mm. The maternal adnexa and ovaries are within normal limits. Normal Doppler blood flow was demonstrated to both ovaries. IMPRESSION: Single early intrauterine gestation with estimated gestational age of 6 weeks 0 days, ED D 11/18/2021.Heart rate could not be accurately obtained. This is likely still within normal limits a t this gestational age. A follow-up ultrasound would be recommended in 7-10 days to document heart ra te. Small 8 x 5 mm inferior subchorionic bleed.
== END 2021-03-25 22:56 | disposition home or self-care (01) ==
LOC: ER 21:04
DX: O20.0 Threatened abortion (principal); Z3A.01 Less than 8 weeks gestation of pregnancy
CPT/HCPCS: 36415; 76815; 80048; 81003; 81025; 84702; 85025; 86900; 86901; 99284

== ENCOUNTER 2021-04-01 20:45 | Emergency (ER) | payer OTHER ==
[2021-04-01 21:02] LABS: Absolute Lymphocytes (CBC) 3.2 K/uL (0.7-4.9); Basophils % 0.5 % (0-1.3); Hematocrit 41.2 % (36.0-45.0); Lymphocytes % 16.6 % (15.3-44.8); MPV 8.4 fL (7.6-11.3); RBC Red Blood Cell Count 4.61 M/uL (3.86-4.86)
[2021-04-01 21:30] LABS: ALT/SGPT 55 U/L (12-78); AST/SGOT 50 U/L (15-37); Albumin 4.1 g/dL (3.4-5.0); Alkaline Phosphatase 88 U/L (45-117); BUN Blood Urea Nitrogen 10 mg/dL (7-18); Bilirubin Direct 0.2 mg/dL (0-0.2); Bilirubin Total 0.5 mg/dL (0.2-1.0); Glucose Level 133 mg/dL (74-106); Potassium 3.6 mmol/L (3.5-5.1); Protein, Total 8.5 g/dL (6.4-8.2); Sodium Level 138 mmol/L (136-145)
[2021-04-01 21:33] LABS: Bicarbonate 12 mmol/L (21-32)
[2021-04-01] MEDS ORDERED: NA CHLORIDE 0.9% 1,000 ML ONE ×2 (21:38→22:58)
[2021-04-01] MEDS ORDERED: LORazepam 2 MG/ML VIAL ONE (21:38)
[2021-04-01 21:52] LABS: Arterial Blood Carboxyhemoglob 0.7 % (0-1.5); Blood Gas Oxyhemoglobin 95.8 % (94-97); Blood O2 Saturation 97.4 % (92-98.5)
[2021-04-01 21:56] LABS: Urine Blood 1+ (Negative); Urine Glucose Negative (Negative); Urine Protein 2+ (Negative); Urine Specific Gravity >=1.030 (1.005-1.030); Urine pH 5.5 (5.0-7.0)
[2021-04-01 22:03] LABS: Urine Specific Gravity/Preg >1.030 (1.005-1.030)
[2021-04-01 22:15] LABS: Barbiturates NEGATIVE (NEGATIVE); Benzodiazepines NEGATIVE (NEGATIVE); Cocaine NEGATIVE (NEGATIVE); METHAMPHETAM NEGATIVE (NEGATIVE); Methadone NEGATIVE (NEGATIVE); Opiates NEGATIVE (NEGATIVE); Phencyclidine NEGATIVE (NEGATIVE); THC Cannibis NEGATIVE (NEGATIVE)
[2021-04-02] MEDS ORDERED: NA CHLORIDE 0.9% 1,000 ML ONE (02:07)
[2021-04-02] MEDS ORDERED: D5 0.45 NS 1,000 ML IV ONE (05:34)
[2021-04-02 05:52] LABS: BUN Blood Urea Nitrogen 6 mg/dL (7-18); Bicarbonate 17 mmol/L (21-32); Glucose Level 86 mg/dL (74-106); Potassium 3.8 mmol/L (3.5-5.1); Sodium Level 143 mmol/L (136-145)
[2021-04-02 06:48] LABS: Protime INR 1.05
[2021-04-02 09:47] LABS: Absolute Lymphocytes (CBC) 1.8 K/uL (0.7-4.9); Basophils % 0.2 % (0-1.3); Hematocrit 36.9 % (36.0-45.0); Lymphocytes % 10.5 % (15.3-44.8); MPV 8.4 fL (7.6-11.3); RBC Red Blood Cell Count 4.14 M/uL (3.86-4.86)
[2021-04-02 10:05] LABS: BUN Blood Urea Nitrogen 5 mg/dL (7-18); Bicarbonate 22 mmol/L (21-32); Glucose Level 112 mg/dL (74-106); Potassium 3.6 mmol/L (3.5-5.1); Sodium Level 142 mmol/L (136-145)
--- NOTE | 2021-04-02 10:17 | EDPHYS ---
Physician Documentation [facility] Name: Beena Garcia Age: 25 yrs Sex: Female : 1995 Arrival Date: 04/01/2021 Time: 20:47 Bed 3 Private MD: ED Physician Eduard Grady HPI: 04/01 22:23 This 25 yrs old Female presents to ER via EMS with complaints of Overdose. 7 22:23 The patient presents to the emergency department with a possible overdose, medication mh7 missing from bottle. Context: Method: the patient has a confirmed or suspected ingestion, Benadryl, Time: the patient's OD/poisoning occurred at an unknown time, Extent: the original prescription was for 30 pills/capsules, there were 0 pills/capsules remaining in the container, the strength of the pills/capsules is 50 mg(s), the patient had a total ingestion of approximately 1500 mg(s), the OD/poisoning occurred at at home, and was witnessed no one, Psychiatric history: it is unknown whether or not the patient has an antecedent psychiatric history, Previous OD/poisoning history: It is unknown if the patient has had similar previous episodes. Associated signs and symptoms: Pertinent positives: decreased level of consciousness, seizure. Severity of symptoms: At their worst the symptoms were severe today, in the emergency department the symptoms have improved mildly. 22:23 Unable to obtain HPI due to altered mental status. 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 - Social history:: Smoking status: unknown. ROS: 22:23 Unable to obtain ROS due to altered mental status. 7 Exam: 22:23 Head/Face: Normocephalic, atraumatic. Eyes: Pupils equal round and reactive to light, 7 extra-ocular motions intact. Lids and lashes normal. Conjunctiva and sclera are non-icteric and not injected. Cornea within normal limits. Periorbital areas with no swelling, redness, or edema. Neck: Trachea midline, no thyromegaly or masses palpated, and no cervical lymphadenopathy. Supple, full range of motion without nuchal rigidity, or vertebral point tenderness. No Meningismus. Chest/axilla: Normal chest wall appearance and motion. Nontender with no deformity. No lesions are appreciated. 22:23 Respiratory: Lungs have equal breath sounds bilaterally, clear to auscultation and percussion. No rales, rhonchi or wheezes noted. No increased work of breathing, no retractions or nasal flaring. Abdomen/GI: Soft, non-tender, with normal bowel sounds. No distension or tympany. No guarding or rebound. No evidence of tenderness throughout. Back: No spinal tenderness. No costovertebral tenderness. Full range of motion. Skin: Warm, dry with normal turgor. Normal color with no rashes, no lesions, and no evidence of cellulitis. MS/ Extremity: Pulses equal, no cyanosis. Neurovascular intact. Full, normal range of motion. 22:23 Constitutional: The patient appears Altered mental status 22:23 Cardiovascular: Rate: tachycardic, Rhythm: regular, Pulses: no pulse deficits are appreciated, Heart sounds: normal, normal S1and S2, Edema: is not appreciated, JVD: is not appreciated. 22:23 Neuro: Orientation: unable to test, AMS, Mentation: AMS, Memory: AMS, Cranial nerves: AMS, Cerebellar function: unable to test, AMS, Motor: moves all fours, Sensation: unable to test, AMS, Gait: not tested. seizure activity, is not displayed by the patient, Abnormal movements: there are no abnormal movements. Vital Signs: 20:50 BP 124 / 69; Pulse 155; Resp 16; Temp 97.5; Pulse Ox 97% ; Weight 55 kg; rr5 20:55 BP 124 / 69; Pulse 157; Resp 24 S; Temp 99.2(TE); Pulse Ox 97% on R/A; Weight 68.04 kg bb (R); Height 5 ft. 6 in. (167.64 cm) (R); 23:23 BP 111 / 80; Pulse 146; Resp 20; Pulse Ox 100% ; rr5 23:30 BP 111 / 80; Pulse 138; Resp 19; Pulse Ox 99% on R/A; ea 04/02 00:11 BP 108 / 64; Pulse 137; Resp 18; Pulse Ox 98% ; rr5 01:04 BP 103 / 87; Pulse 134; Resp 18; Pulse Ox 99% ; ea 01:42 Pulse 105; Pulse Ox 98% on R/A; ea 02:08 BP 114 / 90; Pulse 109; Resp 16; Temp 98.8; Pulse Ox 100% ; rr5 03:04 BP 101 / 64; Pulse 119; Resp 16; Pulse Ox 99% ; ea 04:10 BP 125 / 89; Pulse 102; Resp 19; Pulse Ox 99% ; rr5 06:00 BP 111 / 65; Pulse 101; Resp 16; Pulse Ox 99% ; rr5 06:58 BP 111 / 65; Pulse 106; Resp 18; Pulse Ox 99% ; ea 08:44 BP 122 / 85; Pulse 114; Resp 18; Pulse Ox 99% on R/A; ph 09:49 BP 117 / 80; Pulse 111; Resp 18; Pulse Ox 98% on R/A; ph 11:50 BP 114 / 79; Pulse 92; Resp 17; Temp 98; Pulse Ox 98% ; bp 06/11 20:55 Body Mass Index 24.21 (68.04 kg, 167.64 cm) bb MDM: 07:33 Patient medically screened. rn 10:12 Differential diagnosis: overdose. Data reviewed: vital signs, nurses notes, old medical rn records, lab test result(s), radiologic studies, ultrasound, and as a result, I will discharge patient. Counseling: I had a detailed discussion with the patient and/or guardian regarding: the historical points, exam findings, and any diagnostic results supporting the discharge/admit diagnosis, lab results, radiology results, the need for outpatient follow up, to return to the emergency department if symptoms worsen or persist or if there are any questions or concerns that arise at home. Response to treatment: the patient's symptoms have markedly improved after treatment, the patient's condition has returned to base line, the patient is now symptom free, and as a result, I will discharge patient. Special discussion: I discussed with the patient/guardian in detail that at this point there is no indication for admission to the hospital. It is understood, however, that if the symptoms persist or worsen the patient needs to return immediately for re-evaluation. ED course: Pt reevaluated this AM, back to baseline, a little tired, denies suicidal ideations, denies that taking benadryl last night was suicide attempt, states was just trying to sleep. No chronic psychiatric issues. Took benadryl before knowing was having a miscarriage, told here. Has had 3 miscarriages now, and understands what to look for. Evaluated by Andrew Elder, spoke with him, he agrees that he thinks patient will be fine and not liekly to harm herself if discharged. Patient is with grandmother, and grandmother plans to watch her closely and ensure her safety. Return precautions given and understood. . 04/01 20:51 Order name: Acetaminophen [facility] 04/01 20:51 Order name: Basic Metabolic Panel [facility] 04/01 20:51 Order name: CBC with Diff; Complete Time: 21:15 [facility] 04/01 20:51 Order name: ETOH Level; Complete Time: 22:32 [facility] 04/01 20:51 Order name: Hepatic Function; Complete Time: 22:32 [facility] 04/01 20:51 Order name: PT-INR; Complete Time: 07:33 [facility] 04/01 20:51 Order name: Ptt, Activated; Complete Time: 07:33 [facility] 04/01 20:51 Order name: Salicylate; Complete Time: 22:32 [facility] 04/01 20:51 Order name: Urine Drug Screen; Complete Time: 22:32 [facility] 04/01 20:52 Order name: Acetaminophen Level; Complete Time: 22:32 [facility] 04/01 20:52 Order name: Basic Metabolic Panel; Complete Time: 22:32 [facility] 04/01 21:14 Order name: HCG-Quantitative; Complete Time: 22:32 [facility] 04/01 21:33 Order name: Arterial Blood Gas; Complete Time: 22:32 [facility] 04/01 20:51 Order name: EKG; Complete Time: 20:52 [facility] 04/01 21:10 Order name: CT Head Brain wo Cont [facility] 04/01 21:12 Order name: US Transvaginal Ob [facility] 04/01 21:55 Order name: Urine Dipstick-Ancillary; Complete Time: 22:32 [facility] 04/01 22:00 Order name: Urine --Ancillary (enter results); Complete Time: 22:32 [facility] 04/01 22:19 Order name: SARS-COV-2 RT PCR; Complete Time: 22:32 [facility] 04/02 05:11 Order name: BMP; Complete Time: 06:19 [facility] 04/02 08:19 Order name: CBC with Diff: repeat eb 04/02 08:19 Order name: Basic Metabolic Panel: repeat eb 04/01 20:51 Order name: EKG - Nurse/Tech; Complete Time: 21:03 rr5 04/01 20:51 Order name: IV Saline Lock; Complete Time: 21:03 rr5 04/01 20:51 Order name: Labs collected and sent; Complete Time: 21:03 rr5 04/01 20:51 Order name: Suicide Screening ([place]); Complete Time: 07:05 rr5 04/01 20:51 Order name: Urine Dipstick-Ancillary (obtain specimen); Complete Time: 21:03 rr5 Administered Medications: 04/01 21:23 Drug: NS 0.9% 1000 ml Route: IV; Rate: 1000 ml; Site: left antecubital; ea 04/02 00:00 Follow up: Response: No adverse reaction; IV Status: Completed infusion; IV Intake: ea 1000ml 04/01 21:24 Drug: Ativan (LORazepam) 1 mg Route: IVP; Site: left antecubital; ea 22:00 Follow up: Response: No adverse reaction ea 23:24 Drug: NS 0.9% 1000 ml Route: IV; Rate: 1000 ml; Site: left antecubital; ea 04/02 01:00 Follow up: Response: No adverse reaction; IV Status: Completed infusion; IV Intake: ea 1000ml 01:51 Drug: NS 0.9% 1000 ml Route: IV; Rate: 1000 ml; Site: left antecubital; ea 11:52 Follow up: IV Status: Completed infusion; IV Intake: 1000ml bp 05:27 Drug: D5-1/2 NS 1000 ml Route: IV; Rate: 125 ml/hr; Site: left antecubital; rr5 11:52 Follow up: IV Status: Completed infusion; IV Intake: 1000ml bp Disposition: 04/02/21 10:16 Discharged to Home. Impression: Benadryl overdose, Incomplete spontaneous without complication. - Condition is Stable. - Discharge Instructions: Incomplete Miscarriage, Accidental Overdose, Miscarriage. - Medication Reconciliation Form, Thank You Letter, Antibiotic Education, Prescription Opioid Use form. - Follow up: Private Physician; When: As needed; Reason: Recheck today's complaints, Re-evaluation by your physician. - Problem is new. - Symptoms have improved. Signatures: Dispatcher [employer] [facility] Eduard Grady MD MD rn Antunez, Elena RN Maldonado Perez ea RN RN Pj Morton RN RN rr5 Chase Amaral MD MD 7 Corrections: (The following items were deleted from the chart) 04/01 20:59 20:52 CORONAVIRUS+MR.LAB.BRZ ordered. [facility] 04/02 05:58 04/01 20:52 PROTIME (+INR)+COAG.LAB.BRZ ordered. [facility] 04/02 05:58 04/01 20:52 PTT, ACTIVATED+COAG.LAB.BRZ ordered. [facility] 04/02 11:25 05:58 Protime (+INR) ordered. [facility] : 05:58 PTT, Activated Partial Thromb ordered. [facility] 11:53 10:16 04/02/2021 10:16 Discharged to Home. Impression: Benadryl overdose; Incomplete bp spontaneous without complication. Condition is Stable. Forms are Medication Reconciliation Form, Thank You Letter, Antibiotic Education, Prescription Opioid Use. Follow up: Private Physician; When: As needed; Reason: Recheck today's complaints, Re-evaluation by your physician. Problem is new. Symptoms have improved. rn
--- NOTE | 2021-04-02 10:17 | ER ---
Nurse's Notes [facility] Name: Beena Garcia Age: 25 yrs Sex: Female : 1995 Arrival Date: 04/01/2021 Time: 20:47 Bed 3 Private MD: Diagnosis: Benadryl overdose;Incomplete spontaneous without complication Presentation: 04/01 20:50 Chief complaint: EMS states: 6 weeks , friend called for unresponsiveness and rr5 reported she took approximately 32 tablets of diphenhydramine 50 mg/ tablet. when we arrived patient not talking respond to pain. while en route she had a generalized seizure approximately 30 seconds. 20:50 Coronavirus screen: unable to obtain. Ebola Screen: Unable to complete the Ebola rr5 screening because:. Initial Sepsis Screen: Does the patient meet any 2 criteria? No. Patient's initial sepsis screen is negative. Does the patient have a suspected source of infection? No. Patient's initial sepsis screen is negative. Risk Assessment: Do you want to hurt yourself or someone else? Unable to obtain. Onset of symptoms was April 01, 2021. Care prior to arrival: IV initiated. 20 GA, in the left antecubital area. 20:50 Method Of Arrival: EMS: [facility] rr5 20:50 Acuity: LETTY 2 rr5 20:50 Note friend stated to EMS patient is having vaginal bleeding which is not a new problem.rr5 04/02 00:23 Risk Assessment: Do you want to hurt yourself or someone else? Patient reports no rr5 desire to harm self or others. 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 - Social history:: Smoking status: unknown. Screenin:01 Abuse screen: Denies threats or abuse. Denies injuries from another. Nutritional rr5 screening: No deficits noted. Tuberculosis screening: No symptoms or risk factors identified. Fall Risk Secondary diagnosis (15 points) confused. IV access (20 points). Mental Status- Overestimates/Forgets Limitations (15 pts.). Total Gilbert Fall Scale indicates High Risk Score (45 or more points). Fall prevention measures have been instituted. Side Rails Up X 2 Placed Close to Nursing Station Frequent Obs/Assessments Occuring Family Present and informed to notify staff if the need to leave the bedside As available patient and family educated on Fall Prevention Program and Strategies. Assessment: 21:00 Reassessment: spoke to Dafne at [facility] recommendations are as follows: bb Monitor for a minimum of 8 hours, give fluids and benzodiazepines for agitation, monitor QRS for widening if greater than 110 give sodium bicarbonate, consider gynecological consult and psychiatric evaluation. 21:00 General: Appears uncomfortable, Behavior is responds to painful stimulus. Pain: Unable ea to use pain scale. FLACC scale score is 0 out of 10. Neuro: Level of Consciousness is responds to painful stimulus. Neuro: Pupils are PERRLA. Cardiovascular: Patient's skin is warm and dry. Respiratory: Airway is patent Respiratory effort is even, unlabored, Respiratory pattern is regular. Derm: Skin is dry, Skin is pale, Skin temperature is warm. 21:21 Reassessment: Poison Control case # [id number]. bb 23:30 Reassessment: Patient and/or family updated on plan of care and expected duration. Pain ea level reassessed. Patient is alert, oriented x 3, equal unlabored respirations, skin warm/dry/pink. 12 01:04 Reassessment: Patient and/or family updated on plan of care and expected duration. Pain ea level reassessed. Patient is alert, oriented x 3, equal unlabored respirations, skin warm/dry/pink. 02:08 Reassessment: Patient appears in no apparent distress at this time. Patient is alert, rr5 oriented x 3, equal unlabored respirations, skin warm/dry/pink. kept for observation. 03:04 Reassessment: Patient and/or family updated on plan of care and expected duration. Pain ea level reassessed. Pt resting with eyes closed, respirations even and unlabored, chest expansions even and symmetrical. No s/s of pain or discomfort noted at this time. 04:20 Reassessment: Patient appears in no apparent distress at this time. Patient is alert, rr5 oriented x 3, equal unlabored respirations, skin warm/dry/pink. 05:28 Reassessment: Patient appears in no apparent distress at this time. Patient is alert, rr5 oriented x 3, equal unlabored respirations, skin warm/dry/pink. repeat BMP done IVF to follow. 06:30 Reassessment: Patient appears in no apparent distress at this time. Patient is alert, rr5 oriented x 3, equal unlabored respirations, skin warm/dry/pink. spoke to laboratory staff and clarify the PTT INR result he said he will put the results on the computer. 06:58 Reassessment: Patient and/or family updated on plan of care and expected duration. Pain ea level reassessed. Patient is alert, oriented x 3, equal unlabored respirations, skin warm/dry/pink. Patient states feeling better. 07:00 Reassessment: RECD REPORT FROM DELVIS CABRAL. 25YO HF P/W OD ON DIPHENHYDRAMINE. PT STATES bp ACCIDENTAL INGESTION. FAMILY AT B/S. 08:51 Reassessment: PT GIVEN IPAD WITH [employer] SCREENER. bp 11:50 Reassessment: PT D/C HOME AMBULATORY WITH FAMILY, DX WITH BENADRYL OVERDOSE AND bp INCOMPLETE MISCARRIAGE. Vital Signs: 04/01 20:50 BP 124 / 69; Pulse 155; Resp 16; Temp 97.5; Pulse Ox 97% ; Weight 55 kg; rr5 20:55 BP 124 / 69; Pulse 157; Resp 24 S; Temp 99.2(TE); Pulse Ox 97% on R/A; Weight 68.04 kg bb (R); Height 5 ft. 6 in. (167.64 cm) (R); 23:23 BP 111 / 80; Pulse 146; Resp 20; Pulse Ox 100% ; rr5 23:30 BP 111 / 80; Pulse 138; Resp 19; Pulse Ox 99% on R/A; ea 04/02 00:11 BP 108 / 64; Pulse 137; Resp 18; Pulse Ox 98% ; rr5 01:04 BP 103 / 87; Pulse 134; Resp 18; Pulse Ox 99% ; ea 01:42 Pulse 105; Pulse Ox 98% on R/A; ea 02:08 BP 114 / 90; Pulse 109; Resp 16; Temp 98.8; Pulse Ox 100% ; rr5 03:04 BP 101 / 64; Pulse 119; Resp 16; Pulse Ox 99% ; ea 04:10 BP 125 / 89; Pulse 102; Resp 19; Pulse Ox 99% ; rr5 06:00 BP 111 / 65; Pulse 101; Resp 16; Pulse Ox 99% ; rr5 06:58 BP 111 / 65; Pulse 106; Resp 18; Pulse Ox 99% ; ea 08:44 BP 122 / 85; Pulse 114; Resp 18; Pulse Ox 99% on R/A; ph 09:49 BP 117 / 80; Pulse 111; Resp 18; Pulse Ox 98% on R/A; ph 11:50 BP 114 / 79; Pulse 92; Resp 17; Temp 98; Pulse Ox 98% ; bp 04/01 20:55 Body Mass Index 24.21 (68.04 kg, 167.64 cm) bb ED Course: 04/01 20:47 Patient arrived in ED. mw2 20:50 Chase Amaral MD is Attending Physician. mh7 20:50 EKG done, by ED staff, reviewed by Chase Amaral MD. rr5 20:51 Delvis Steward, RN is Primary Nurse. rr5 21:00 Triage completed. rr5 21:00 Arm band placed on right wrist. rr5 21:00 Patient has correct armband on for positive identification. Bed in low position. Call ea light in reach. 21:01 Maintain EMS IV. Dressing intact. Good blood return noted. Site clean \T\ dry. Gauge \T\ rr 5 site: G 20 left AC. 21:02 Mckee cath inserted, using sterile technique, 16 Fr., by ED staff, balloon inflated, to rr5 gravity drainage, urine specimen collected. other by margot CABRAL. 21:40 CT Head Brain wo Cont In Process Unspecified. EDMS 22:14 US Transvaginal Ob In Process Unspecified. EDMS 04/02 05:27 Repeat lab(s) drawn. by wa, sent to lab. rr5 06:[address] [facility] Crisis line to page out the screener travel money advisor/ Amos took the eb patient information and will page the screener travel money advisor. 06:47 Arden from [facility] called to inform us that we will have to wait until the oncoming eb shift takes call at 8am. 07:11 Primary Nurse role handed off by Delvis Steward, RN bp 07:11 Maldonado Norton, RN is Primary Nurse. bp 08:51 connected Andrew the [facility] screener travel money advisor with the patient via face time for eb patient screening. 10:11 Attending Physician role handed off by Chase Amaral MD rn 10:11 Eduard Grady MD is Attending Physician. rn 11:51 No provider procedures requiring assistance completed. IV discontinued, intact, bp bleeding controlled, No redness/swelling at site. Pressure dressing applied. Administered Medications: 04/01 21:23 Drug: NS 0.9% 1000 ml Route: IV; Rate: 1000 ml; Site: left antecubital; ea 04/02 00:00 Follow up: Response: No adverse reaction; IV Status: Completed infusion; IV Intake: ea 1000ml 04/01 21:24 Drug: Ativan (LORazepam) 1 mg Route: IVP; Site: left antecubital; ea 22:00 Follow up: Response: No adverse reaction ea 23:24 Drug: NS 0.9% 1000 ml Route: IV; Rate: 1000 ml; Site: left antecubital; ea 04/02 01:00 Follow up: Response: No adverse reaction; IV Status: Completed infusion; IV Intake: ea 1000ml 01:51 Drug: NS 0.9% 1000 ml Route: IV; Rate: 1000 ml; Site: left antecubital; ea 11:52 Follow up: IV Status: Completed infusion; IV Intake: 1000ml bp 05:27 Drug: D5-1/2 NS 1000 ml Route: IV; Rate: 125 ml/hr; Site: left antecubital; rr5 11:52 Follow up: IV Status: Completed infusion; IV Intake: 1000ml bp Intake: 00:00 IV: 1000ml; Total: 1000ml. ea 01:00 IV: 1000ml; Total: 2000ml. ea 11:52 IV: 1000ml; Total: 3000ml. bp 11:52 IV: 1000ml; Total: 4000ml. bp 04:10 bloody discharge noted rr5 Output: 03:58 Urine: 500ml (Mckee); Total: 500ml. rr5 04:10 Other: 1 (Pads) ; Total: 500ml. rr5 04:10 Urine: 1100ml (Mckee); Total: 1600ml. rr5 04:10 bloody discharge noted rr5 Outcome: 10:16 Discharge ordered by MD. rn 11:52 Discharged to home ambulatory, with family. bp 11:52 Condition: stable 11:52 Discharge instructions given to patient, family, Instructed on discharge instructions, follow up and referral plans. Demonstrated understanding of instructions, follow-up care. 11:53 Patient left the ED. bp Signatures: Dispatcher [employer] EDEna Poole, RN RN Eduard Kaye MD MD rn Hall, Patricia, RN RN Margot Singh RN Maldonado Perez ea RN RN Vaibhav Talley 2 Olya Merrill Raymond, RN RN rr5 Chase Amaral MD MD 7
[2021-04-02 12:20] VITALS: O2SAT 98
[2021-04-02 12:22] VITALS: BP 114/79; TEMP 98
--- NOTE | 2021-04-02 20:28 | RAD REPORT ---
EXAM DESCRIPTION: CT - Head Brain Wo Cont - 04/02/2021 6:40 am CLINICAL HISTORY: 25 years Female SEIZURE TECHNIQUE: Contiguous axial CT images obtained through the brain without IV contrast. Coronal and sa gittal reformats also provided. This CT exam was performed according to our departmental dose-optimization program, which includes on e or more of the following dose reduction techniques: automated exposure control, adjustment of the m A and/or kV according to patient size, and/or use of iterative reconstruction technique. COMPARISON: No prior exams provided for comparison. FINDINGS: There is no intracranial hemorrhage, extra-axial collection, or acute transcortical infarc tion. The ventricles are normal in size and contour without mass-effect or midline shift. Osseous structures are normal. The paranasal sinuses and mastoid air cells are clear. IMPRESSION: No acute intracranial abnormalities. Electronically signed by: Em Norris MD 04/01/2021 10:12 PM CDT Due to temporary technical issues with the PACS/Fluency reporting system, reports are being signed by the in house radiologists without review as a courtesy to insure prompt reporting. The interpreting radiologist is fully responsible for the content of the report.
--- NOTE | 2021-04-02 22:25 | RAD REPORT ---
EXAM DESCRIPTION: US - Transvaginal OB - 04/01/2021 10:14 pm CLINICAL HISTORY: 25 years Female, ABD CRAMPING, COMPARISON: None. TECHNIQUE: Complete first trimester obstetrical ultrasound obtained with transvaginal and transabdom inal imaging. FINDINGS: Uterus: No myometrial abnormalities. Gestational sac: Irregular appearing gestational sac in the lower uterine segment moving into the ope n cervix. pole: pole identified with a crown-rump length of 0.74 cm heart motion: No cardiac activity identified. Yolk sac: Yolk sac identified seen into the open cervix. Placenta: Not well evaluated due to early gestational age. Right ovary: The right ovary measures 3.2 x 2.0 x 3.1 cm. Left ovary: The left ovary is not visualized. Adnexa: No additional adnexal findings. Free fluid: No free fluid. Color Doppler imaging demonstrates blood flow in the right ovary. IMPRESSION: 1. Findings compatible with failed early with transvaginal imaging demonstrati ng a pole measuring 0.74 cm and no heart cardiac activity. The gestational sac is visuali zed in the left lower uterine segment progressing into an open cervix. Findings suggest an process/in complete miscarriage. Electronically signed by: Ronni España 04/01/2021 10:45 PM CDT Due to temporary technical issues with the PACS/Fluency reporting system, reports are being signed by the in house radiologists without review as a courtesy to insure prompt reporting. The interpreting radiologist is fully responsible for the content of the report.
== END 2021-04-02 11:53 | disposition home or self-care (01) ==
LOC: ER 20:45
DX: O9A.211 Injury, poisoning and certain other consequences of external causes complicating pregnancy, first trimester (principal); T45.0X1A Poisoning by antiallergic and antiemetic drugs, accidental (unintentional), initial encounter; O03.4 Incomplete spontaneous abortion without complication; Z20.822 Contact with and (suspected) exposure to COVID-19; Z88.5 Allergy status to narcotic agent
CPT/HCPCS: 96361; 93005; 85025 ×2; 80048 ×3; 36415; 80320; 80329 ×2; 81025; 85610; 80076; 80307 ×8; 85730; 84702; 81003; 70450; 76817; 82805; 51702; 96374; 99284; U0003; J7799; J7030 ×3

== ENCOUNTER 2023-05-01 04:49 | Emergency (ER) | payer OTHER ==
--- OUTSIDE RECORDS SUMMARY | 2023-05-01 04:53 | XMS REPORT | Continuity of Care Document ---
:1995 Author Organization [facility] t Address [address] [address] [place] [address] Care Team Providers Name Role Phone DAI HICKS Primary Care Physician Unavailable DAI HICKS Attending Clinician Unavailable IVY MONTEJO Attending Clinician Unavailable Ena Dalton CNM Attending Clinician Kurt Dai TRAN Attending Clinician [phone] ENA DALTON Attending Clinician Unavailable Doctor Unassigned, [place] Attending Clinician Unavailable VELIA WEBER Attending Clinician Unavailable Jose Raul Attending Clinician Unavailable JANE TITUS Attending Clinician Unavailable RICHARD AMAYA Attending Clinician Unavailable KARLA BURRELL Attending Clinician Unavailable Lab, [facility] Attending Clinician Unavailable Miranda Marroquin Attending Clinician Richard Machuca Attending Clinician Pardeep Amaro DO Attending Clinician MIRANDA VARELA Attending Clinician Unavailable Jose Raul Admitting Clinician Unavailable Payers Payer Name Policy Type Policy Number Effective Date Expiration Date Coleen white VANDANA CH[employer] STAR [id number] 2022 00:00:00 [facility] [id number] 2016 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 2016 Negative PAP [id number] Negative PAP +[id number] Negative PAP +HPV, negative [id number] Negative PAP and [id number] Negative PAP and [id number] pending Other Other Disease Active Univers general general 6-10 ity of counseling [place] advice and advice 00 Me dical for for Branch contracept contracept rishi rishi management management Cyst of Cyst of Disease Active Univers right right 6-23 ity of ovary ovary 00:00: [place] 00 Medical Branch Over Over Disease Active 2016-10 Univers weight weight 2-01 ity of 00:00: [place] 00 Medical Branch Allergies, Adverse Reactions, Alerts Allergy Allergy Status Severity Reaction(s) Onset Inactive Treating Comm ents Source Name Type Date Date Clinician Codeine Propensi Active Hives Univers ty to 5-09 ity of adverse 00:00: [place] reaction 00 Medical s Branch CODEINE DRUG Active Hives Univers INGREDI 5-09 ity of 00:00: [place] 00 Medical Branch Codeine Allergy Active [place] [facility] e [facility] Social History Social Habit Start Date Stop Date Quantity Comments Source Exposure to 2023-02-18 2023-02-28 Not sure University SARS-CoV-2 00:00:00 06:11:00 [facility] (event) [place] Alcohol intake 2023-02-28 2023-02-28 Current drinker Unive rsity of 00:00:00 00:00:00 of alcohol [facility] (finding) [place] Alcohol Comment 2023-02-28 2023-02-28 social Universit y of 00:00:00 00:00:00 [facility] Tobacco use and 2022-06-21 2022-06-21 Smokeless tobacco Un iversity of exposure 00:00:00 00:00:00 non-user [facility] Sex Assigned At [birth year] Universit y of 00:00:00 00:00:00 [facility] Smoking Status Start Date Stop Date Source Never smoked tobacco [facility] Medications Ordered Filled Start Stop Current Ordering Indication Dosage Frequency Signature Comments Components Source Medication Medication Date Date Medication? Clinician (SIG) Name Name fluconazole 2022- Yes [id number] 150mg Take 1 Univers (DIFLUCAN) 5-13 tablet by ity of 150 mg 00:00: 04:59 [place] tablet [place] :00 now for 1 Medical dose. Branch fluconazole 2022- Yes [id number] 150mg Take 1 Univers (DIFLUCAN) 5-13 tablet by ity of 150 mg 00:00: 04:59 mouth once [place] tablet 00 :00 now for 1 Medical dose. Take Branch second tablet in 1 week fluconazole 2022- Yes [id number] 150mg Take 1 Univers (DIFLUCAN) 5-13 tablet by ity of 150 mg 00:00: 04:59 mouth once [place] tablet 00 :00 now for 1 Medical dose. Take Branch second tablet in 1 week fluconazole 2022- No [id number] 150mg Take 1 Univers (DIFLUCAN) 5-12 tablet by ity of 150 mg 00:00: 00:00 [place] tablet 00 :00 now for 1 Medical dose. Branch phentermine Yes Take by Uni vers HCl 5-10 mouth. ity of (PHENTERMIN 08:20: [place] E ORAL) 44 [facility] Branch phentermine Yes Take by Uni vers HCl 5-10 mouth. ity of (PHENTERMIN 08:20: [place] E ORAL) 44 [facility] Branch phentermine Yes Take by Uni vers HCl 5-10 mouth. ity of (PHENTERMIN 08:20: [place] E ORAL) 44 [facility] Branch phentermine Yes Take by Uni vers HCl 5-10 mouth. ity of (PHENTERMIN 08:20: [place] E ORAL) 44 [facility] Branch phentermine Yes Take by Uni vers HCl 5-10 mouth. ity of (PHENTERMIN 08:20: [place] E ORAL) 44 [facility] Branch phentermine 2023-0 Yes Take by Uni vers HCl 5-10 mouth. ity of (PHENTERMIN 08:20: [place] E ORAL) 44 Medical Branch norgestimat 0 Yes [id number] 1{tbl} Take 1 Univers e-ethinyl 9-16 tablet by ity o f estradioL 00:00: [place] (ORTHO 00 the Medical TRI-CYCLEN, morning. Bran ch 28,) 0.18/0.215/ 0.25 mg-35 mcg (28) tablet norgestimat Yes [id number] 1{tbl} Take 1 Univers e-ethinyl 9-16 tablet by ity o f estradioL 00:00: [place] ([place]THO 00 the Medical TRI-CYCLEN, morning. Bran ch 28,) 0.18/0.215/ 0.25 mg-35 mcg (28) tablet norgestimat Yes [id number] 1{tbl} Take 1 Univers e-ethinyl 9-16 tablet by ity o f estradioL 00:00[place] ([place]THO 00 the Medical TRI-CYCLEN, morning. Bran ch 28,) 0.18/0.215/ 0.25 mg-35 mcg (28) tablet norgestimat 0 2023- No [id number] 1{tbl} Take 1 Univers e-ethinyl 9-16 05-10 tablet by ity of estradioL 00:00: 00:00 mouth in [place] as (ORTHO 00 :00 the Medical TRI-CYCLEN, morning. Bran ch 28,) 0.18/0.215/ 0.25 mg-35 mcg (28) tablet norgestimat 2021-0 2023- No [id number] 1{tbl} Take 1 Univers e-ethinyl 9-16 05-10 tablet by ity of estradioL 00:00: 00:00 mouth in [place] as (ORTHO 00 :00 the Medical TRI-CYCLEN, morning. Bran ch 28,) 0.18/0.215/ 0.25 mg-35 mcg (28) tablet norgestimat 2021-0 2023- No [id number] 1{tbl} Take 1 Univers e-ethinyl 9-16 05-10 tablet by ity of estradioL 00:00: 00:00 mouth in [place] as (ORTHO 00 :00 the Medical TRI-CYCLEN, morning. Bran ch 28,) 0.18/0.215/ 0.25 mg-35 mcg (28) tablet Nitrofurant Yes [id number] 100mg Take 1 Univers oin&Nit. 6-13 capsule by ity o f Macrocryst 00:00: mouth 2 [place] (MACROBID) 00 (two) Medical 100 mg times Branch capsule daily. Nitrofurant Yes [id number] 100mg Take 1 Univers oin&Nit. 6-13 capsule by ity o f Macrocryst 00:00: [place] 2 [place] (MACROBID) 00 (two) Medical 100 mg times Branch capsule daily. Nitrofurant Yes [id number] 100mg Take 1 Univers oin&Nit. 6-13 capsule by ity o f Macrocryst 00:00: mouth 2 [place] (MACROBID) 00 (two) Medical 100 mg times Branch capsule daily. Nitrofurant 2022- No [id number] 100mg Take 1 Univers oin&Nit. 6-13 05-10 capsule by ity of Macrocryst 00:00: 00:00 mouth 2 [place] (MACROBID) 00 :00 (two) Medical 100 mg times Branch capsule daily. Nitrofurant 2022- No [id number] 100mg Take 1 Univers oin&Nit. 6-13 05-10 capsule by ity of Macrocryst 00:00: 00:00 mouth 2 [place] (MACROBID) 00 :00 (two) Medical 100 mg times Branch capsule daily. Nitrofurant 2022- No [id number] 100mg Take 1 Univers oin&Nit. 6-13 05-10 capsule by ity of Macrocryst 00:00: 00:00 mouth 2 [place] (MACROBID) 00 :00 (two) Medical 100 mg times Branch capsule daily. metronidazo metronidazo No 1 BID metronidaz [place] 500 mg le 500 mg ole 500 mg da tablet Take tablet Take tablet Medical 1 tablet 1 tablet Take 1 Group twice a day twice a day tablet by oral by oral twice a route for 7 route for 7 day by days. days. oral route for 7 days. Provera 10 Provera 10 No 1 Q1D Provera 10 [place] mg tablet mg tablet mg tablet da Take 1 Take 1 Take 1 Medical tablet tablet tablet Group every day every day every day by oral by oral by oral route for route for route for 10 days. 10 days. 10 days. medroxyprog medroxyprog No medroxypro [place] esterone 10 esterone 10 gesterone da mg tablet mg tablet 10 mg [facility] sonny TAKE 1 TAKE 1 tablet Group TABLET BY TABLET BY TAKE 1 MOUTH EVERY MOUTH EVERY TABLET BY DAY FOR 10 DAY FOR 10 MOUTH DAYS DAYS EVERY DAY FOR 10 DAYS clomiphene clomiphene No 1 Q1D clomiphene [place] citrate 50 citrate 50 citrate 50 da mg tablet mg tablet mg tablet Medical Take 1 Take 1 Take 1 Group tablet tablet tablet every day every day every day by oral by oral by oral route for 5 route for 5 route for days. days. 5 days. Clomid on Clomid on Clomid on cycle day cycle day cycle day 5-9 5-9 5-9 medroxyprog medroxyprog No medroxypro [place] esterone 10 esterone 10 gesterone da mg tablet mg tablet 10 mg [facility] TAKE 1 TAKE 1 tablet Group TABLET BY TABLET BY TAKE 1 MOUTH EVERY MOUTH EVERY TABLET BY DAY FOR 10 DAY FOR 10 MOUTH DAYS DAYS EVERY DAY FOR 10 DAYS Clomid 50 Clomid 50 No Clomid 50 [place] mg tablet mg tablet mg tablet da TAKE 1 TAKE 1 TAKE 1 Medical TABLET BY TABLET BY TABLET BY Group MOUTH ONCE MOUTH ONCE MOUTH ONCE DAILY FOR 5 DAILY FOR 5 DAILY FOR DAYS DAYS 5 DAYS medroxyprog medroxyprog No medroxypro [place] esterone 10 esterone 10 gesterone da mg tablet mg tablet 10 mg [facility] TAKE 1 TAKE 1 tablet Group TABLET BY TABLET BY TAKE 1 MOUTH EVERY MOUTH EVERY TABLET BY DAY FOR 10 DAY FOR 10 MOUTH DAYS DAYS EVERY DAY FOR 10 DAYS Immunizations Ordered Filled Immunization Date Status Comments [facility] e Immunization Name Name HPV9 2019-09-10 Completed University of 00:00: [facility] HPV9 2019-09-10 Completed University of 00:00:00 [facility] HPV9 2019-09-10 Completed University of 00:00:00 [facility] HPV9 2019-09-10 Completed University of 00:00:00 [facility] HPV9 2019-09-10 Completed University of 00:00:00 [facility] HPV9 2019-09-10 Completed University of 00:00:00 [facility] HPV9 2019-09-10 Completed University of 00:00:00 [facility] HPV9 2019-09-10 Completed University of 00:00:00 [facility] Branch HPV9 2019-09-10 Completed University of 00:00:00 [facility] HPV9 2019-06-17 Completed University of 00:00:00 [facility] Branch HPV9 2019-06-17 Completed University of 00:00:00 [facility] Branch HPV9 2019-06-17 Completed University of 00:00:00 [facility] Branch HPV9 2019-06-17 Completed University of 00:00:00 [facility] Branch HPV9 2019-06-17 Completed University of 00:00:00 [facility] HPV9 2019-06-17 Completed University of 00:00:00 [facility] HPV9 2019-06-17 Completed University of 00:00:00 [facility] HPV9 2019-06-17 Completed University of 00:00:00 [facility] HPV9 2019-06-17 Completed University of 00:00:00 [facility] Influenza Virus 2016-09-06 Completed Universit y of Vaccine Quad IM 3+ 00:00:00 [facility] Influenza Virus 2016-09-06 Completed Universit y of Vaccine Quad IM 3+ 00:00:00 [facility] Influenza Virus 2016-09-06 Completed Universit y of Vaccine Quad IM 3+ 00:00:00 [facility] Influenza Virus 2016-09-06 Completed Universit y of Vaccine Quad IM 3+ 00:00:00 [facility] Influenza Virus 2016-09-06 Completed Universit y of Vaccine Quad IM 3+ 00:00:00 [facility] Influenza Virus 2016-09-06 Completed Universit y of Vaccine Quad IM 3+ 00:00:00 [facility] Influenza Virus 2016-09-06 Completed Universit y of Vaccine Quad IM 3+ 00:00:00 [facility] Influenza Virus 2016-09-06 Completed Universit y of Vaccine Quad IM 3+ 00:00:00 [facility] Influenza Virus 2016-09-06 Completed Universit y of Vaccine Quad IM 3+ 00:00:00 [facility] TDAP 2009-10-22 Completed University of 00:00:00 [facility] TDAP 2009-10-22 Completed University of 00:00:00 [facility] TDAP 2009-10-22 Completed University of 00:00:00 [facility] TDAP 2009-10-22 Completed University of 00:00:00 [facility] TDAP 2009-10-22 Completed University of 00:00:00 [facility] TDAP 2009-10-22 Completed University of 00:00:00 [facility] TDAP 2009-10-22 Completed University of 00:00:00 [facility] TDAP 2009-10-22 Completed University of 00:00:00 [facility] TDAP 2009-10-22 Completed University of 00:00:00 [facility] Vital Signs Vital Name Observation Time Observation Value Comments Source Systolic blood 2023-02-28 13:12:00 123 mm[Hg] Univer sity of pressure [facility] Diastolic blood 2023-02-28 13:12:00 88 mm[Hg] Unive rsity of [facility] Heart rate 2023-02-28 13:12:00 91 /min [facility] Body temperature 2023-02-28 13:12:[address] [facility] 2023-02-28 13:12:00 18 /min [facility] Body height 2023-02-28 13:12:00 149.9 cm [facility] Body weight 2023-02-28 13:12:00 66.395 kg [facility] BMI 2023-02-28 13:12:00 29.56 kg/m2 [facility] BP Diastolic 2022-11-02 00:00:00 72 mm[Hg] [facility] Height 2022-11-02 00:00:00 64 [in_i] [facility] BMI (Body Mass 2022-11-02 00:00:00 25 kg/m2 [facility] [employer] Medical Index) Group BP Systolic 2022-11-02 00:00:00 108 mm[Hg] [facility] Body Weight 2022-11-02 00:00:00 145.4 [lb_av] [facility] BP Diastolic 2022-10-12 00:00:00 83 mm[Hg] [facility] Height 2022-10-12 00:00:00 64 [in_i] [facility] BMI (Body Mass 2022-10-12 00:00:00 24.6 kg/m2 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) Group BP Systolic 2022-09-12 00:00:00 119 mm[Hg] [facility] Body Weight 2022-09-12 00:00:00 148.9 [lb_av] [facility] Systolic blood 2022-07-07 20:00:00 107 mm[Hg] Univer sity of [facility] Diastolic blood 2022-07-07 20:00:00 67 [facility]Hg[facility] 2022-07-07 20:00:00 74 /min [facility] Body temperature 2022-07-07 20:00:00 36.44 Shelly [facility] Respiratory rate 2022-07-07 20:00:00 18 /min [facility] Body height 2022-07-07 20:00:00 149.9 cm [facility] Body weight 2022-07-07 20:00:00 64.921 kg [facility] BMI 2022-07-07 20:00:00 28.91 kg/m2 [facility] Procedures Procedure Date / Time Performing Clinician Source Performed CBC WITH DIFF 2023-02-28 13:55:00 Ena Dalton [facility] GLYCOSYLATED HEMOGLOBIN 2023-02-28 13:55:00 Ena Dalton [facility] (A1C) [facility] HCV ANTIBODY 2023-02-28 13:55:00 Ena Dalton [facility] GC & CHLAMYDIA 2023-02-28 13:55:00 Ena [facility] AMPLIFIED ASSAY [facility] GALV ONLY - VAGINAL 2023-02-28 13:55:00 Ena Dalton [facility] PATHOGENS BY NUCLEIC Medical [facility] ACID TESTING HIV 1/2 AG-AB WITH 2023-02-28 13:55:00 Ena Dalton [facility] REFLEX [facility] SYPHILIS IGG/IGM 2023-02-28 13:55:00 Ena Dalton [facility] ASSIGNMENT OF BENEFITS 2023-02-28 12:47:02 Doctor Unassigned, No [facility] Name [facility], transvaginal 2022-11-16 00:00:00 [facility] REFERRAL- 2022-10-14 06:01:00 Doctor Unassigned, No [facility] REQUEST/RESPONSE [facility], transvaginal 2022-09-12 00:00:00 [facility] POCT TEST 2022-07-07 20:02:00 Dai Hicks [facility] Plan of Care Planned Activity Planned Date Details Comments Source Diagnostic Test 2022-11-02 genetic screen, [facility] Pending 00:00:00 unspecified specimen Group [code = genetic screen, unspecified specimen] Diagnostic Test 2022-11-02 lupus anticoagulant, Mallory codi [facility] Pending 00:00:00 plasma [code = lupus Group anticoagulant, plasma] Diagnostic Test 2022-11-02 anticardiolipin igg+igm M [place] [facility] Pending 00:00:00 Ab, serum [code = Group anticardiolipin igg+igm Ab, serum] Diagnostic Test 2022-11-02 beta-2 glycoprotein 1 [place] [facility] Pending 00:00:00 igg+igm Ab, serum [code Grou p = beta-2 glycoprotein 1 igg+igm Ab, serum] Instructions [facility] Encounters Start End Encounter Admission Attending Care Care Encounter Source Date/Time Date/Time Type Type Clinicians Facility Department ID 2022-10-12 Outpatient [facility] [id number] [place] 10:36:13 [id number] [facility] 2023-04-23 2023-04-23 Outpatient R KURT [facility] [id number] Univers 13:15:00 13:15:00 DAI jarrett o f [facility] 2023-04-02 2023-04-02 Outpatient R GUSTABO [facility] [id number] [facility] 14:30:00 14:30:00 IVY jarrett o f [facility] 2023-03-02 2023-03-02 [facility] [id number] Univers 00:00:00 00:00:00 Management Ena A [employer] [id number] ity of [facility] [id number] Cam as MATERNAL [phone] [facility] ical & CHILD [address] [place] [address] 2023-03-02 2023-03-02 Telephone [facility] [id number] Univers 00:00:00 00:00:00 Dai Henderson [employer] [id number] ity of [facility] [id number] Cam as MATERNAL [id number] [facility] & CHILD [address] [place] [address] 2023-02-28 2023-02-28 [facility] [id number] Univers 07:45:00 08:57:53 ENA ity of [facility] 2023-02-28 2023-02-28 [facility] [id number] Univers 07:45:00 08:57:53 Visit Ena A [employer] [id number] i ty of REGIONAL [id number] Cam as MATERNAL [phone] [facility] ical & CHILD [address] [place] [address] 2023-02-28 2023-02-28 Orders Doctor MANCIA [id number] Univers 00:00:00 00:00:00 Only Unassigned, GILL 350.1.13.10 ity of [place] [facility] [id number] Cam as [id number] [address] 2023-01-30 2023-01-30 Outpatient R SHA, [facility] [id number] Univers 14:45:00 14:45:00 ENA [facility] 2022-12-19 2022-12-19 Outpatient Kinsey WEBER, [facility] [id number] Univers 14:30:00 14:30:00 VELIA thais [facility] 2022-11-16 2022-11-16 Outpatient White_M MMG [facility] [id number] [place] 00:00:00 00:00:00 [id number] [facility] 2022-11-16 2022-11-16 Jane [facility] [place] - [id number] M at[place]or 00:00:00 00:00:00 Discovery Ariela [facility]: [address] [address] , Ph. [phone] 2022-11-02 2022-11-02 Outpatient CORBY [facility] [id number] [place] 15:26:00 15:26:00 [id number] [facility] 2022-11-02 2022-11-02 Jane [facility] [place] - [id number] M at[place]or 00:00:00 00:00:00 Discovery Ariela [facility]: [address] [address] , Ph. [phone] 2022-10-14 2022-10-14 Orders Doctor MANCIA [id number] [facility] 00:00:00 00:00:00 Only Unassigned, GILL 350.1.13.10 ity of [place] [facility] [id number] Cam as [id number] [address] 2022-10-12 2022-10-12 [place] [id number] [place] 00:00:00 00:00:00 [id number] [facility] 2022-10-12 2022-10-12 [place] [id number] [place] 00:00:00 00:00:00 [id number] [facility] 2022-10-12 2022-10-12 Jane [facility] [place] - [id number] M at[place] 00:00:00 00:00:00 Discovery tc Titus [facility]: [address], [place] [address] , Ph. [phone] 2022-10-06 2022-10-06 Outpatient R KURT, [facility] [id number] Univers 09:00:00 09:00:00 DAI duran [facility] 2022-09-12 2022-09-12 Outpatient CORBY [facility] [id number] [place] 15:04:00 15:04:00 JANE [id number] [facility] 2022-09-12 2022-09-12 Outpatient White_M [facility] [id number] [place] 00:00:00 00:00:00 [id number] [facility] 2022-09-12 2022-09-12 [facility] [place] - [id number] M at[place]or 00:00:00 00:00:00 Discovery tc Titus [facility]: [address], [place] [address] , Ph. [phone] 2022-07-07 2022-07-07 Office Kurt, [facility] [id number] Univers 14:45:00 15:27:14 Visit Dai Henderson [employer] 350.1.13.10 [facility] [id number] Cam as MATERNAL [id number] [facility] [address] [place] [address] 2022-07-07 2022-07-07 Outpatient R KURT, [facility] [id number] Univers 14:45:00 15:27:14 DAI duran [facility] 2022-07-07 2022-07-07 Outpatient R KURT, [facility] [id number] Univers 14:45:00 14:45:00 DAI ity o [facility] 2022-07-07 2022-07-07 Outpatient R AMAYA, [facility] [id number] Univers 08:15:00 08:15:00 RICHARD jarrett o roger [facility] 2022-06-21 2022-06-21 Office Akinsipe, [facility] [id number] Univers 10:30:00 11:49:35 Visit Dai Henderson [employer] [id number] ity of [facility] [id number] Cam as MATERNAL [id number] [facility] [address] [place] [address] 2022-06-21 2022-06-21 Outpatient R AKINSIPE, [facility] [id number] Univers 10:30:00 11:49:35 DAI jarrett o [facility] 2022-06-21 2022-06-21 Outpatient R AKINSIPE, [facility] [id number] Univers 10:30:00 10:30:00 DAI kernsy o [facility] 2022-06-19 2022-06-19 Outpatient R AKINSIPE, [facility] [id number] Univers 10:15:00 10:15:00 DAI kernsy o [facility] 2022-06-16 2022-06-16 Outpatient R AKINSIPE, [facility] [id number] Univers 14:00:00 14:00:00 DAI ity o [facility] 2022-06-16 2022-06-[address] [facility] [id number] Univers 00:00:00 00:00:00 Dai Henderson [employer] [id number] ity of [facility] [id number] Cam as MATERNAL [id number] [facility] & CHILD [address] [place] [address] 2022-04-25 2022-04-25 Outpatient R AKINSIPE, [facility] [id number] Univers 08:15:00 08:15:00 DAI ity o f [facility] 2022-04-18 2022-04-18 Outpatient R AKINSIPE, [facility] [id number] Univers 14:15:00 14:15:00 DAI ity o roger [facility] 2022-04-14 2022-04-[address] 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 1.2.840.114 [id number] Univers 00:00:00 00:00:00 Dai C [employer] MECHANICAL ENGINEER 350.1.13.10 ity of [facility] 4.2.7.2.686 Cam as MATERNAL [id number] [address] 2022-03-31 2022-03-31 [facility] [id number] Univers 16:00:00 16:29:52 DAI patel [facility] 2022-03-31 2022-03-[address] [facility] 1.2.472.229 [id number] Univers 16:00:00 16:29:52 Visit Dai Henderson [employer] MECH[employer]ICAL ENGINEER 350.1.13.10 ity of [facility] 4.2.7.2.686 Cam as MATERNAL [phone] [facility] & [address] 2022-03-31 2022-03-31 Orders Doctor BLANCHE 1.2.840.114 [id number] Univers 00:00:00 00:00:00 Only Unassigned, GILL 350.1.13.10 ity of [place] [facility] 4.2.7.2.686 Cam as [phone] [address] 2022-01-30 2022-01-30 Outpatient R INDRA [facility] [id number] Univers 13:00:00 13:00:00 KARLA duran [facility] 2021-11-11 2021-11-11 [facility] [id number] Univers 14:00:00 14:00:00 DAI duran [facility] 2021-11-11 2021-11-11 Outpatient R AKINSIPE, [facility] [id number] Univers 14:00:00 14:00:00 DAI ity o f [facility] 2021-10-28 2021-10-28 Outpatient R AKINSIPE, [facility] [id number] Univers 13:45:00 14:59:43 DAI ity o f [facility] 2021-10-28 2021-10-28 Office Akinsipe, [facility] 1.2.434.428 [id number] Univers 13:45:00 14:59:43 Visit Dai C [employer] MECH[employer]ICAL ENGINEER 350.1.13.10 ity of REGIONAL 4.2.7.2.686 Cam as MATERNAL [phone] [facility] ical & CHILD [address] [place] [address] 2021-05-25 2021-05-25 Telephone Akinsipe, [facility] 1.2.840.114 [id number] Univers 00:00:00 00:00:00 Dai C [employer] MECH[employer]ICAL ENGINEER 350.1.13.10 ity of [facility] 4.2.7.2.686 Cam as MATERNAL [phone] [facility] [address] [place] [address] 2021-05-24 2021-05-24 Outpatient R AKINSIPE, [facility] [id number] Univers 15:15:00 15:15:00 DAI ity o f [facility] 2021-05-11 2021-05-11 Outpatient R AKINSIPE, [facility] [id number] Univers 16:00:00 16:00:00 DAI ity o f [facility] 2021-04-26 2021-04-26 [facility] 1.2.840.114 [id number] Univers 00:00:00 00:00:00 Dai C [employer] MECH[employer]ICAL ENGINEER 350.1.13.10 ity of [facility] 4.2.7.2.686 Cam as MATERNAL [phone] [facility] [address] [place] [address] 2021-04-14 2021-04-14 Outpatient P [facility] [id number] Univers 13:45:00 13:45:00 ity of [facility] 2021-04-05 2021-04-05 [facility] [id number] Univers 15:45:00 15:45:00 DAI ity o f [facility] 2021-03-25 2021-03-[address] 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 1.2.840.114 [id number] 00:00:00 00:00:00 Dai C [employer] MECHANICAL ENGINEER 350.1.13.10 REGIONAL 4.2.7.2.686 MATERNAL [phone] & [address] 2021-03-24 2021-03-24 [facility] 1.2.840. 114 [id number] Univers 10:30:23 10:47:41 Visit Miranda Varela [employer] MECH[employer]ICAL ENGINEER 350.1.13.10 ity of REGIONAL 4.2.7.2.686 Cam as MATERNAL [id number] [address] 2021-03-24 2021-03-24 Outpatient R [facility] [id number] Univers 10:30:00 10:30:00 ity of [facility] 2021-03-24 2021-03-24 [facility] 1.2.840.114 [id number] Univers 00:00:00 00:00:00 Dai C [employer] MECH[employer]ICAL ENGINEER 350.1.13.10 ity of REGIONAL 4.2.7.2.686 Cam as MATERNAL [id number] [facility] & [address] 2021-03-22 2021-03-[address] [facility] 1.2.129.992 [id number] Univers 15:10:35 15:25:35 Dai C [employer] MECH[employer]ICAL ENGINEER 350.1.13.10 ity of Visit REGIONAL 4.2.7.2.686 Cam as MATERNAL [id number] [facility] [address] [place] [address] 2021-03-22 2021-03-22 Outpatient R KURT [facility] [id number] Univers 15:00:00 15:00:00 DAI kernsy o f [facility] 2021-03-22 2021-03-22 Orders Doctor BLANCHE 1.2.840.114 [id number] Univers 00:00:00 00:00:00 Only Unassigned, GILL 350.1.13.10 ity of [place] [facility] 4.2.7.2.686 Cam as [phone] [address] 2021-02-23 2021-02-23 Office Monique [facility] 1.2.840.114 [id number] Univers 13:08:12 13:35:01 Visit Richard R [employer] MECH[employer]ICAL ENGINEER 350.1.13.10 ity of [facility] 4.2.7.2.686 Cam as MATERNAL [id number] [facility] & CHILD [address] [place] [address] 2021-02-23 2021-02-23 Outpatient R MONIQUE [facility] [id number] Univers 13:00:00 13:00:00 SHAEJAYA luiza o [facility] 2021-02-16 2021-02-16 Outpatient R [facility] [id number] Univers 09:30:00 09:30:00 ity of [facility] 2021-02-16 2021-02-16 Outpatient R MONIQUE [facility] [id number] Univers 09:30:00 09:30:00 RICHARD ity o f [facility] 2021-02-02 2021-02-02 Routine Monique [facility] 1.2.840.114 [id number] Univers 10:05:24 11:11:24 Juliazitanda R [employer] MECH[employer] ENGINEER 350.1.13.10 ity of Visit [facility] 4.2.7.2.686 Cam as MATERNAL [phone] [facility] [address] [place] [address] 2021-02-02 2021-02-02 Outpatient R MONIQUE [facility] [id number] Univers 10:00:00 10:00:00 ROSZITANDA ity o f [facility] 2021-02-02 2021-02-02 Orders Doctor BLANCHE 1.2.840.114 [id number] Univers 00:00:00 00:00:00 Only Unassigned, GILL 350.1.13.10 ity of [place] [facility] 4.2.7.2.686 Cam as [id number] [address] 2021-02-01 2021-02-01 [facility] [id number] Univers 14:45:00 14:45:00 DARIANA luiza o f [facility] 2021-01-31 2021-01-31 [facility] [id number] Univers 13:45:00 13:45:00 DARIANA saumyathais o f [facility] 2021-01-11 2021-01-11 Patient Prem [facility] 1.2.840.114 [id number] Univers 00:00:00 00:00:00 Outreach Pardeep PRIMARY 350.1.13.10 i ty of [facility] [place].2.7.2.[place] [phone] Ia dical [address] 2021-01-10 2021-01-10 [facility] 1.2.840.114 [id number] Univers 14:26:11 15:14:43 Juliazitajayelkin R [employer] MECH[employer] ENGINEER 350.1.13.10 ity of Visit REGIONAL 4.2.7.2.686 Cam as MATERNAL [phone] Med ical & CHILD [address] [place] [address] 2021-01-10 2021-01-10 [facility] [id number] Univers 14:00:00 14:00:00 SHAENDElkin jarrett o [facility] 2021-01-10 2021-01-10 Orders Doctor BLANCHE 1.2.840.114 [id number] Univers 00:00:00 00:00:00 Only Unassigned, GILL 350.1.13.10 ity of [place] [facility] 4.2.7.2.686 Cam as [id number] [address] 2021-01-03 2021-01-03 Outpatient R [facility] [id number] Univers 14:00:00 14:00:00 ity of [facility] 2021-01-03 2021-01-03 Outpatient R MONIQUE [facility] [id number] Univers 12:45:00 12:45:00 RICHARD jarrett o roger [facility] 2020-12-28 2020-12-28 [facility] [id number] Univers 13:15:00 13:15:00 RICHARD jarrett o [facility] 2020-11-29 2020-11-29 [facility]phone [facility] 1.2.991.372 [id number] Univers 00:00:00 00:00:00 Richard Euceda [employer] MECHANICAL ENGINEER 350.1.13.10 ity of [facility] 4.2.7.2.686 Cam as MATERNAL [id number] [facility] ical & CHILD [address] [place] [address] 2020-11-24 2020-11-24 Office [facility] 1.2.840.114 [id number] Univers 14:45:48 15:26:28 Visit Juliajaya Euceda [employer] MECH[employer]ICAL ENGINEER 350.1.13.10 ity of [facility] 4.2.7.2.686 Cam as MATERNAL [phone] Med ical & CHILD [address] [place] [address] 2020-11-24 2020-11-24 [facility] [id number] Univers 14:45:00 14:45:00 RICHARD jarrett o [facility] 2020-11-24 2020-11-24 Orders Doctor MANCIA 1.2.840.114 [id number] Univers 00:00:00 00:00:00 Only Unassigned, GILL 350.1.13.10 [facility] 4.2.7.2.686 Cam as [id number] [address] 2020-09-14 2020-09-14 [facility] [id number] Univers 13:30:00 13:30:00 RICHARD jarrett o [facility] 2020-09-13 2020-09-13 [facility] 1.2.897.605 [id number] Univers 00:00:00 00:00:00 Roszitanda R [employer] MECHANICAL ENGINEER 350.1.13.10 ity [facility] 4.2.7.2.686 Cam as MATERNAL [id number] [facility] [address] [place] [address] 2020-09-09 2020-09-09 Outpatient R MONIQUE, [facility] [id number] Univers 15:00:00 15:00:00 SHAENDA ity o f [facility] 2020-09-01 2020-09-01 Outpatient R AMAYA, [facility] [id number] Univers 12:45:00 12:45:00 SHAENDA ity o f [facility] 2020-09-01 2020-09-01 Outpatient R AMAYA, [facility] [id number] Univers 12:45:00 12:45:00 SHAENDA ity o f [facility] 2020-07-29 2020-07-29 Outpatient R AKINSIPE, [facility] [id number] Univers 09:45:00 09:45:00 DAI ity o [facility] 2020-07-29 2020-07-29 Outpatient R AKINSIPE, [facility] [id number] Univers 09:45:00 09:45:00 DAI ity o [facility] 2020-06-08 2020-06-08 Outpatient R AKINSIPE, [facility] [id number] Univers 10:45:00 10:45:00 DAI ity o [facility] 2020-06-08 2020-06-08 Outpatient R AKINSIPE, [facility] [id number] Univers 10:45:00 10:45:00 DAI ity o [facility] 2020-04-13 2020-04-13 [facility] 1.2.840.114 [id number] Univers 11:00:57 11:44:15 Visit Dariana R [employer] MECH[employer] ENGINEER 350.1.13.10 ity [facility] 4.2.7.2.686 Cam as MATERNAL [id number] [facility] [address] [place] [address] 2020-04-13 2020-04-13 Outpatient R MONIQUE, [facility] [id number] Univers 11:00:00 11:00:00 ROSZITANDA ity o f [facility] 2020-04-13 2020-04-13 Outpatient R NICHOLE [facility] [id number] Univers 09:45:00 09:45:00 MIRANDA jarrett [facility] 2020-03-09 2020-03-09 Outpatient R MONIQUE [facility] [id number] Univers 10:30:00 10:30:00 RICHARD duran [facility] 2020-03-04 2020-03-04 [facility]phone [facility] 1.2.840.114 [id number] Univers 00:00:00 00:00:00 Miranda Rogers [employer] MECHANICAL ENGINEER 350.1.13.10 it y of [facility] 4.2.7.2.686 Cam as MATERNAL [phone] [facility] & CHILD [address] [place] [address] 2020-01-12 2020-01-12 [facility] [id number] Univers 15:30:00 15:30:00 MIRANDASAMIA jarrett [facility] 2020-01-07 2020-01-07 Patient Doctor [facility] 1.2.840.114 [id number] Univers 00:00:00 00:00:00 Secure Msg Unassigned, W[employer] MECHANICAL ENGINEER 350.1.13.10 ity of [place] [facility] 4.2.7.2.686 Cam as MATERNAL [id number] [address] 2020-01-05 2020-01-05 Office [facility] 1.2.448.104 [id number] Univers 13:19:07 14:07:46 Visit Dai Henderson [employer] MECHANICAL ENGINEER 350.1.13.10 ity of [facility] 4.2.7.2.686 Cam as MATERNAL [id number] [facility] & [address] 2020-01-05 2020-01-05 Outpatient R KURT [facility] [id number] Univers 13:15:00 13:15:00 DAI duran [facility] 2019-12-12 2019-12-12 Outpatient Kinsey AMAYA [facility] [id number] Univers 08:00:00 08:00:00 RICHARD duran [facility] 2019-12-11 2019-12-11 Patient [facility] 1.2.652.356 [id number] Univers 00:00:00 00:00:00 Secure Msg Miranda N [employer] MECHANICAL ENGINEER 350.1.13.10 ity of [facility] 4.2.7.2.686 Cam as MATERNAL [id number] Med ical & CHILD 107 [facility] 2019-12-08 2019-12-08 Office [facility] 1.2.840.114 [id number] Univers 11:15:24 11:43:05 Visit Richard Euceda [employer] MECHANICAL ENGINEER 350.1.13.10 ity of [facility] 4.2.7.2.686 Cam as MATERNAL [id number] Med ical & CHILD 107 [facility] 2019-12-08 2019-12-08 Orders Doctor BLANCHE 1.2.840.114 [id number] Univers 00:00:00 00:00:00 Only Unassigned, GILL 350.1.13.10 ity of [place] [facility] 4.2.7.2.686 Cam as [id number] [address] 2019-11-28 2019-11-28 Telephone [facility] 1.2.840.114 [id number] Univers 00:00:00 00:00:00 Miranda Rogers [employer] MECHANICAL ENGINEER 350.1.13.10 it y of [facility] 4.2.7.2.686 Cam as MATERNAL [id number] Med ical & CHILD 107 [facility] 2019-11-25 2019-11-25 Office [facility] 1.2.321.894 [id number] Univers 08:40:20 09:30:23 Visit Miranda Rogers [employer] MECHANICAL ENGINEER 350.1.13.10 it y of [facility] 4.2.7.2.686 Cam as MATERNAL [id number] Med ical & CHILD 107 [facility] 2019-11-25 2019-11-25 Telephone [facility] 1.2.840.114 [id number] Univers 00:00:00 00:00:00 Miranda Rogers [employer] MECHANICAL ENGINEER 350.1.13.10 it y of [facility] 4.2.7.2.686 Cam as MATERNAL [id number] Med ical & CHILD 107 [facility] 2019-11-05 2019-11-05 Telephone [facility] 1.2.840.114 [id number] Univers 00:00:00 00:00:00 Dai C [employer] MECHANICAL ENGINEER 350.1.13.10 ity of [facility] 4.2.7.2.686 Cam as MATERNAL [phone] [facility] ical & CHILD [address] [place] [address] 2019-06-17 2019-06-17 Office [facility] 1.2.429.627 [id number] [facility] 12:53:35 13:48:17 Visit Miranda Sue [employer] MECHANICAL ENGINEER 350.1.13.10 it y of [facility] 4.2.7.2.686 Cam as MATERNAL [phone] Med ical & CHILD [address] [place] [address] 2019-06-17 2019-06-17 Orders Doctor MANCIA 1.2.840.114 [id number] Univers 00:00:00 00:00:00 Only Unassigned, GILL 350.1.13.10 ity of [place] [facility] 4.2.7.2.686 Cam as [id number] [address] Results Test Description Test Time Test Comments Results Result Comments Source [facility] ONLY - SYPHILIS IGG/IGM 2023-03-01 15:05:59 Test Item Value Reference Range Interpretation Comme nts Syphilis IgG/IgM (test code = Non-reactive Non-reactive 49120-8) CECIL (test code = CECIL) Non-reactive - No serologic evidence of T. pallidum infection. Cannot exclude incubating or early syphilis. Submit a second specimen in 2-4 weeks if syphilis is clinically suspected. Equivocal - Further testing to follow. Reactive - Further testing to follow. Lab Interpretation (test code = Normal 36239-8) [facility] ONLY - SYPHILIS [id number] 15:05:59 Test Item Value Reference Range Interpretation Comments Syphilis IgG/IgM (test Non-reactive Non-reactive code = 07736-2) CECIL (test code = CECIL) Non-reactive - No serologic evidence of T. pallidum infection. Cannot exclude incubating or early syphilis. Submit a second specimen in 2-4 weeks if syphilis is clinically suspected. Equivocal - Further testing to follow. Reactive - Further testing to follow. Lab Interpretation (test Normal code = 00979-3) [facility] ONLY - SYPHILIS [id number] 15:05:59 Test Item Value Reference Range Interpretation Comments Syphilis IgG/IgM (test Non-reactive Non-reactive code = 28003-3) CECIL (test code = CECIL) Non-reactive - No serologic evidence of T. pallidum infection. Cannot exclude incubating or early syphilis. Submit a second specimen in 2-4 weeks if syphilis is clinically suspected. Equivocal - Further testing to follow. Reactive - Further testing to follow. Lab Interpretation (test Normal code = 26396-7) [facility] 1/2 AG-AB WITH [id number] 06:58:27 Test Item Value Reference Range Interpretation Comments HIV 0.12 Negative Semi-quantitative (test code = 46382-9) CECIL (test code = Non-reactive for HIV-1 CECIL) antigen and HIV-1/HIV-2 antibodies. ?No laboratory evidence of HIV infection. ?Repeat in 2-4 weeks if acute HIV infection is suspected. [facility] 1/2 AG-AB WITH [id number] 06:58:27 Test Item Value Reference Range Interpretation Comments HIV 0.12 Negative Semi-quantitative (test code = 73716-4) CECIL (test code = Non-reactive for HIV-1 CECIL) antigen and HIV-1/HIV-2 antibodies. ?No laboratory evidence of HIV infection. ?Repeat in 2-4 weeks if acute HIV infection is suspected. [facility] 1/2 AG-AB WITH [id number] 06:58:27 Test Item Value Reference Range Interpretation Comments HIV 0.12 Negative Semi-quantitative (test code = 82339-6) CECIL (test code = Non-reactive for HIV-1 CECIL) antigen and HIV-1/HIV-2 antibodies. ?No laboratory evidence of HIV infection. ?Repeat in 2-4 weeks if acute HIV infection is suspected. [facility] [id number] 05:29:42 Test Item Value Reference Range Interpretation Comments HCV Ab (test code = 52756-9) Negative HCV Semi-Quantitative (test code = 0.01 11156-8) [facility] [id number] 05:29:42 Test Item Value Reference Range Interpretation Comments HCV Ab (test code = 60227-1) Negative HCV Semi-Quantitative (test code = 0.01 55956-2) [id number] 05:29:42 Test Item Value Reference Range Interpretation Comments HCV Ab (test code = 89223-4) Negative HCV Semi-Quantitative (test code = 0.01 65619-1) [facility]C)2023-03-01 05:25:25 Test Item Value Reference Range Interpretation Comments HGB A1C (test code = 5.3 % 4.0-5.7 4548-4) CECIL (test code = CECIL) Reference RangesNormal: <5.7%Prediabetes: 5.7 - 6.4%Diabetes: > 6.5% Lab Interpretation (test Normal code = 94875-4) [facility]C)2023-03-01 05:25:25 Test Item Value Reference Range Interpretation Comments HGB A1C (test code = 5.3 % 4.0-5.7 4548-4) CECIL (test code = CECIL) Reference RangesNormal: <5.7%Prediabetes: 5.7 - 6.4%Diabetes: > 6.5% Lab Interpretation (test Normal code = 11845-2) [facility]C)2023-03-01 05:25:25 Test Item Value Reference Range Interpretation Comments HGB A1C (test code = 5.3 % 4.0-5.7 4548-4) CECIL (test code = CECIL) Reference RangesNormal: <5.7%Prediabetes: 5.7 - 6.4%Diabetes: > 6.5% Lab Interpretation (test Normal code = 30166-9) [facility] [id number] 05:04:15 Test Item Value Reference Range Interpretation Comments WBC (test code = 9.14 See_Comment [Automated 5848-2) message] The sy stem which generated this result transmitted reference range : 4.30 - 11.10 10*3/?L. The reference range was not used to interpret this result as normal/abnormal . RBC (test code = 4.95 See_Comment [Automated 217-8) message] The sy stem which generated this result transmitted reference range : 3.93 - 5.25 10*6/?L. The reference range was not used to interpret this result as normal/abnormal . HGB (test code = 15.0 g/dL 11.6-15.0 718-7) HCT (test code = 46.2 % 35.7-45.2 H 4544-3) MCV (test code = 93.3 fL 80.6-95.5 787-2) MCH (test code = 30.3 pg 25.9-32.8 785-6) MCHC (test code = 32.5 g/dL 31.6-35.1 786-4) RDW-SD (test code = 43.6 fL 39.0-49.9 37598-8) RDW-CV (test code = 12.8 % 12.0-15.5 788-0) PLT (test code = 326 See_Comment [Automated 777-3) message] The sy stem which generated this result transmitted reference range : 166 - 358 10*3/ ?L. The reference r maryjane was not used to interpret this result as normal/abnormal . MPV (test code = 10.1 fL 9.5-12.9 08754-4) NRBC/100 WBC (test 0.0 See_Comment [Automat ed code = [id number]) message] The system which generated this result transmitted reference range : 0.0 - 10.0 /100 WBCs. The refer ence range was not u sed to interpret th is result as normal/abnormal . NRBC x10^3 (test code See_Comment [Auto mated = [id number]) message] The s ystem which generated this result transmitted reference range : 10*3/?L. The reference range was not used to interpret this result as normal/abnormal . GRAN MAT (NEUT) % 59.5 % (test code = 770-8) IMM GRAN % (test code 0.10 % = 0295212269) LYMPH % (test code = 31.2 % 736-9) MONO % (test code = 5.9 % 5905-5) EOS % (test code = 2.8 % 713-8) BASO % (test code = 0.5 % 706-2) GRAN MAT x10^3(ANC) 5.43 10*3/uL 1.88-7.09 (test code = 6659674680) IMM GRAN x10^3 (test 0.00-0.06 code = 8750860666) LYMPH x10^3 (test code 2.85 10*3/uL 1.32-3.29 = 731-0) MONO x10^3 (test code 0.54 10*3/uL 0.33-0.92 = 742-7) EOS x10^3 (test code = 0.26 10*3/uL 0.03-0.39 711-2) BASO x10^3 (test code 0.05 10*3/uL 0.01-0.07 = 704-7) Lab Interpretation Abnormal (test code = 21808-2) [facility] WITH [id number] 05:04:15 Test Item Value Reference Range Interpretation Comments WBC (test code = 9.14 See_Comment [Automated 7640-2) message] The sy stem which generated this result transmitted reference range : 4.30 - 11.10 10*3/?L. The reference range was not used to interpret this result as normal/abnormal . RBC (test code = 4.95 See_Comment [Automated 381-8) message] The sy stem which generated this result transmitted reference range : 3.93 - 5.25 10*6/?L. The reference range was not used to interpret this result as normal/abnormal . HGB (test code = 15.0 g/dL 11.6-15.0 718-7) HCT (test code = 46.2 % 35.7-45.2 H 4544-3) MCV (test code = 93.3 fL 80.6-95.5 787-2) MCH (test code = 30.3 pg 25.9-32.8 785-6) MCHC (test code = 32.5 g/dL 31.6-35.1 786-4) RDW-SD (test code = 43.6 fL 39.0-49.9 47124-5) RDW-CV (test code = 12.8 % 12.0-15.5 788-0) PLT (test code = 326 See_Comment [Automated 167-3) message] The sy stem which generated this result transmitted reference range : 166 - 358 10*3/ ?L. The reference r maryjane was not used to interpret this result as normal/abnormal . MPV (test code = 10.1 fL 9.5-12.9 86558-3) NRBC/100 WBC (test 0.0 See_Comment [Automat ed code = 1681702354) message] The system which generated this result transmitted reference range : 0.0 - 10.0 /100 WBCs. The refer ence range was not u sed to interpret th is result as normal/abnormal . NRBC x10^3 (test code See_Comment [Auto mated = 2258019207) message] The s ystem which generated this result transmitted reference range : 10*3/?L. The reference range was not used to interpret this result as normal/abnormal . GRAN MAT (NEUT) % 59.5 % (test code = 770-8) IMM GRAN % (test code 0.10 % = 2582038426) LYMPH % (test code = 31.2 % 736-9) MONO % (test code = 5.9 % 5905-5) EOS % (test code = 2.8 % 713-8) BASO % (test code = 0.5 % 706-2) GRAN MAT x10^3(ANC) 5.43 10*3/uL 1.88-7.09 (test code = 4681452015) IMM GRAN x10^3 (test 0.00-0.06 code = 4788082320) LYMPH x10^3 (test code 2.85 10*3/uL 1.32-3.29 = 731-0) MONO x10^3 (test code 0.54 10*3/uL 0.33-0.92 = 742-7) EOS x10^3 (test code = 0.26 10*3/uL 0.03-0.39 711-2) BASO x10^3 (test code 0.05 10*3/uL 0.01-0.07 = 704-7) Lab Interpretation Abnormal (test code = 56106-6) [facility] WITH [id number] 05:04:15 Test Item Value Reference Range Interpretation Comments WBC (test code = 9.14 See_Comment [Automated 6690-2) message] The sy stem which generated this result transmitted reference range : 4.30 - 11.10 10*3/?L. The reference range was not used to interpret this result as normal/abnormal . RBC (test code = 4.95 See_Comment [Automated 789-8) message] The sy stem which generated this result transmitted reference range : 3.93 - 5.25 10*6/?L. The reference range was not used to interpret this result as normal/abnormal . HGB (test code = 15.0 g/dL 11.6-15.0 718-7) HCT (test code = 46.2 % 35.7-45.2 H 4544-3) MCV (test code = 93.3 fL 80.6-95.5 787-2) MCH (test code = 30.3 pg 25.9-32.8 785-6) MCHC (test code = 32.5 g/dL 31.6-35.1 786-4) RDW-SD (test code = 43.6 fL 39.0-49.9 24928-2) RDW-CV (test code = 12.8 % 12.0-15.5 788-0) PLT (test code = 326 See_Comment [Automated 777-3) message] The sy stem which generated this result transmitted reference range : 166 - 358 10*3/ ?L. The reference r maryjane was not used to interpret this result as normal/abnormal . MPV (test code = 10.1 fL 9.5-12.9 62248-3) NRBC/100 WBC (test 0.0 See_Comment [Automat ed code = 2858631909) message] The system which generated this result transmitted reference range : 0.0 - 10.0 /100 WBCs. The refer ence range was not u sed to interpret th is result as normal/abnormal . NRBC x10^3 (test code See_Comment [Auto mated = 9340094123) message] The s ystem which generated this result transmitted reference range : 10*3/?L. The reference range was not used to interpret this result as normal/abnormal . GRAN MAT (NEUT) % 59.5 % (test code = 770-8) IMM GRAN % (test code 0.10 % = 0383288222) LYMPH % (test code = 31.2 % 736-9) MONO % (test code = 5.9 % 5905-5) EOS % (test code = 2.8 % 713-8) BASO % (test code = 0.5 % 706-2) GRAN MAT x10^3(ANC) 5.43 10*3/uL 1.88-7.09 (test code = 8191657595) IMM GRAN x10^3 (test 0.00-0.06 code = 1957517109) LYMPH x10^3 (test code 2.85 10*3/uL 1.32-3.29 = 731-0) MONO x10^3 (test code 0.54 10*3/uL 0.33-0.92 = 742-7) EOS x10^3 (test code = 0.26 10*3/uL 0.03-0.39 711-2) BASO x10^3 (test code 0.05 10*3/uL 0.01-0.07 = 704-7) Lab Interpretation Abnormal (test code = 36447-6) [facility], [id number] 14:10:00 Test Item Value Reference Range Interpretation Comments PTT-la (test code = 29.5 sec 0.0-51.9 PTT-la) dilute aixa viper 29.0 sec 0.0-47.0 venom (test code = dilute aixa viper venom) interpretation (test comment: See_Comment [Autom ated message] code = interpretation) The s Baby[employer] which generated this result transmitted ref erence range: .. The reference range was not used to int erpret this result as normal/abnormal . [facility] IgG and IgM panel - [id number] 19:14:00 Test Item Value Reference Range Interpretation Comments beta 2 glyco,IgG (test code = beta 2 <9 0-20 glyco,IgG) beta 2 glyco,IgA (test code = beta 2 <9 0-25 glyco,IgA) beta 2 glycoprot,IgM (test code = beta <9 0-32 2 glycoprot,IgM) [facility] and IgM panel - [id number] 19:14:00 Test Item Value Reference Range Interpretation Comments anticardiolipin Ab IgG (test code = <9 0-14 anticardiolipin Ab IgG) anticardiolipin Ab IgM (test code = <9 0-12 anticardiolipin Ab IgM) [facility]rfx HPV if ASCUS+leukorrhea panel rfx vance species{contains CA/Ga/TV/ctng}2022-10-13 00:00:00 Test Item Value Reference Range Interpretation Comments Pap w/rflx HPV,leuk panel,rflx can normal spec (test code = Pap w/rflx HPV,leuk panel,rflx can spec) CT/NG (test code = CT/NG) normal trichomonas vaginalis addon - swab normal (test code = trichomonas vaginalis addon - swab) gardnerella (test code = gardnerella) normal vance - swab (test code = vance - normal swab) [facility] macro (dipstick) panel - [id number] 09:40:09 Test Item Value Reference Range Interpretation Comments Leukocytes (test code = Leukocytes) Trace Nitrite (test code = Nitrite) negative Urobilinogen (test code = .2 Urobilinogen) Protein (test code = Protein) Negative pH (test code = pH) 5.5 Blood (test code = Blood) Negative Specific [place] (test code = 1.030 Specific [place]) Ketone (test code = Ketone) Negative Bilirubin (test code = Bilirubin) Small Glucose (test code = Glucose) Negative Appearance (test code = Appearance) Cloudy Color (test code = Color) Yellow [facility] macro (dipstick) panel - [id number] 09:40:09 Test Item Value Reference Range Interpretation Comments Leukocytes (test code = Leukocytes) Trace Nitrite (test code = Nitrite) negative Urobilinogen (test code = .2 Urobilinogen) Protein (test code = Protein) Negative pH (test code = pH) 5.5 Blood (test code = Blood) Negative Specific [place] (test code = 1.030 Specific [place]) Ketone (test code = Ketone) Negative Bilirubin (test code = Bilirubin) Small Glucose (test code = Glucose) Negative Appearance (test code = Appearance) Cloudy Color (test code = Color) Yellow [facility] - cancer history assessment [id number] 08:33:00 Test Item Value Reference Range Interpretation Comments [facility] [place] - cancer history does not meet assessment result (test criteria code = mg - cancer history assessment result) [facility] [id number] 08:33:00 Test Item Value Reference Range Interpretation Comments [facility] [place] - cancer history does not meet assessment result (test criteria code = [facility] [place] - cancer history assessment result) [facility] + [facility] + TV, DNA, [id number] 00:00:00 Test Item Value Reference Range Interpretation Comments vance - swab (test code = vance normal - swab) gardnerella (test code = abnormal A gardnerella) CT/NG (test code = CT/NG) normal trichomonas vaginalis addon - swab normal (test code = trichomonas vaginalis addon - swab) [facility] macro (dipstick) panel - [id number] 14:03:06 Test Item Value Reference Range Interpretation Comments Leukocytes (test code = Leukocytes) Negative Nitrite (test code = Nitrite) negative Urobilinogen (test code = .2 Urobilinogen) Protein (test code = Protein) Negative pH (test code = pH) 6.0 Blood (test code = Blood) Negative Specific [place] (test code = 1.030 Specific [place]) Ketone (test code = Ketone) Negative Bilirubin (test code = Bilirubin) Negative Glucose (test code = Glucose) Negative Appearance (test code = Appearance) Clear Color (test code = Color) Yellow [facility] macro (dipstick) panel - [id number] 14:03:06 Test Item Value Reference Range Interpretation Comments Leukocytes (test code = Leukocytes) Negative Nitrite (test code = Nitrite) negative Urobilinogen (test code = .2 Urobilinogen) Protein (test code = Protein) Negative pH (test code = pH) 6.0 Blood (test code = Blood) Negative Specific [place] (test code = 1.030 Specific [place]) Ketone (test code = Ketone) Negative Bilirubin (test code = Bilirubin) Negative Glucose (test code = Glucose) Negative Appearance (test code = Appearance) Clear Color (test code = Color) Yellow [facility]portPO[facility] [id number] 20:02:00 Test Item Value Reference Range Interpretation Comments POCT PREG (test code = 1605) Negative On board controls acceptable with C Yes Line (test code = 3574) POCT PREG LOT # (test code = 3575) POCT PREG TEST DATE (test code = 3576) [facility]
[2023-05-01] MEDS ORDERED: NA CHLORIDE 0.9% 1,000 ML ONE ×2 (05:18→08:34)
[2023-05-01] MEDS ORDERED: ONDANSETRON 4 MG/2 ML VIAL ONE (05:19)
[2023-05-01 05:23] LABS: Absolute Lymphocytes (CBC) 1.5 K/uL (0.7-4.9); Hematocrit 42.2 % (36.0-45.0); Lymphocytes % 12.2 % (15.3-44.8); MCV 90.2 fL (80-100); MPV 8.1 fL (7.6-11.3); RBC Red Blood Cell Count 4.68 M/uL (3.86-4.86)
[2023-05-01 05:37] LABS: Specific Gravity 1.017 (1.005-1.030)
[2023-05-01 05:41] LABS: Specific Gravity 1.017 (1.005-1.030); Urine Bacteria <20 /HPF (<20); Urine Bilirubin NEGATIVE (Negative); Urine Blood Negative (Negative); Urine Clarity Extremely Turbid (Clear); Urine Color Light-Yellow (Yellow); Urine Glucose NEGATIVE (Negative); Urine Mucus Slight /HPF (None Seen); Urine Protein TRACE (Negative); Urine RBC <5 /HPF (None Seen); Urine Urobilinogen Normal (Normal); Urine Yeast with Hyphae Trace /HPF (None Seen)
[2023-05-01 05:47] LABS: Albumin 3.9 g/dL (3.4-5.0); Bilirubin Total 0.7 mg/dL (0.2-1.0); Potassium 3.8 mEq/L (3.5-5.1); Protein, Total 7.8 g/dL (6.4-8.2)
[2023-05-01] MEDS ORDERED: DICYCLOMINE HCL 20 MG/2 ML AMP IM ONE (06:26)
[2023-05-01] MEDS ORDERED: DIPHENOX/ATROP SULF 1 TAB PO ONE (06:26)
[2023-05-01] MEDS ORDERED: METOCLOPRAMIDE 10 MG/2mL INJ ONE (06:56)
[2023-05-01] MEDS ORDERED: CEFTRIAXONE 1000 MG/VIAL ONE (08:34)
[2023-05-01] MEDS ORDERED: NA CHLORIDE 0.9% 50 ML ONE (08:34)
[2023-05-01] MEDS ORDERED: KETOROLAC 30 MG/ML INJ ONE (08:34)
--- NOTE | 2023-05-01 09:26 | RAD REPORT ---
EXAM DESCRIPTION: CTAbdomen Pelvis W Contrast - 05/01/2023 8:43 am CLINICAL HISTORY: Abdominal pain. ABD PAIN COMPARISON: No comparisons TECHNIQUE: Biphasic CT imaging of the abdomen and pelvis was performed with 100 ml non-ionic IV cont rast. All CT scans are performed using dose optimization technique as appropriate and may include automated exposure control or mA/KV adjustment according to patient size. FINDINGS: The lung bases are clear. The liver, spleen, pancreas, adrenal glands and kidneys are within normal limits. No bowel obstruction, free air, free fluid or abscess. The appendix is normal. No evidence of signi ficant lymphadenopathy. Small fat containing umbilical hernia. Small subcutaneous air and fluid collection measuring 18 mm in the region of the umbilicus is nonspecific. No suspicious bony findings. IMPRESSION: No acute intra-abdominal or pelvic finding. Small collection in the subcutaneous fat of the umbilicus noted. This appears associated with a small umbilical hernia and is nonspecific. Direct clinical exam assessment would be suggested.
--- NOTE | 2023-05-01 09:49 | ER ---
Nurse's Notes [facility] Name: Beena Garcia Age: 27 yrs Sex: Female : 1995 Arrival Date: 05/01/2023 Time: 04:49 Bed 5 Private MD: Diagnosis: Lower abdominal pain, unspecified;Yeast infection Presentation: 05/01 05:05 Chief complaint: Patient states: sudden onset of diarrhea around 1999 yesterday, rv proceeded by vomiting and chills. dull abd pain 02/28. Coronavirus screen: Vaccine status: Patient reports receiving the 2nd dose of the covid vaccine. Ebola Screen: Patient negative for fever greater than or equal to 101.5 degrees Fahrenheit, and additional compatible Ebola Virus Disease symptoms Patient denies exposure to infectious person. Patient denies travel to an Ebola-affected area in the 21 days before illness onset. Initial Sepsis Screen: Does the patient meet any 2 criteria? No. Patient's initial sepsis screen is negative. Does the patient have a suspected source of infection? No. Patient's initial sepsis screen is negative. Risk Assessment: Do you want to hurt yourself or someone else? Patient reports no desire to harm self or others. Onset of symptoms was April 30, 2023. 05:05 Method Of Arrival: Ambulatory rv 05:05 Acuity: LETTY 3 rv Triage Assessment: 05:06 General: Appears comfortable, Behavior is calm, cooperative. Pain: Complains of pain in rv umbilical area Pain radiates to back. Neuro: Level of Consciousness is awake, alert, obeys commands, Oriented to person, place, time, situation. Cardiovascular: Capillary refill < 3 seconds. Respiratory: Airway is patent Respiratory effort is even, unlabored. GI: Abdomen is flat, non-distended, Reports lower abdominal pain, diarrhea, nausea, vomiting. : No signs and/or symptoms were reported regarding the genitourinary system. Derm: No signs and/or symptoms reported regarding the dermatologic system. 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 - Social history:: Smoking status: Patient denies any tobacco usage or history of. - Family history:: not pertinent. Screenin:08 [facility] ED Fall Risk Assessment (Adult) History of falling in the last 3 months, rv including since admission No falls in past 3 months (0 pts) Confusion or Disorientation No (0 pts) Intoxicated or Sedated No (0 pts) Impaired Gait No (0 pts) Mobility Assist Device Used No (0 pt) Altered Elimination No (0 pt) Score/Fall Risk Level 0 - 2 = Low Risk Oriented to surroundings, Maintained a safe environment, Educated pt \T\ family on fall prevention, incl call for assistance when getting out of bed, Assessed \T\ reinforced patient's understanding of fall precautions, Provided non-skid footwear, Hourly rounding (assess needs \T\ fall precautionary measures) done, Used ambulatory aids as needed (educated on \T\ assisted with), Used gait belt as appropriate. Abuse screen: Denies threats or abuse. Denies injuries from another. Nutritional screening: No deficits noted. Tuberculosis screening: No symptoms or risk factors identified. Assessment: 06:44 GI: Reports nausea, provider notified. as6 07:00 Reassessment: Patient appears in no apparent distress at this time. Patient and/or kc6 family updated on plan of care and expected duration. Pain level reassessed. Patient is alert, oriented x 3, equal unlabored respirations, skin warm/dry/pink. Patient states feeling better. Patient states symptoms have improved. General: Appears in no apparent distress. comfortable, Behavior is calm, cooperative, appropriate for age. 08:00 Reassessment: Patient appears in no apparent distress at this time. No changes from kc previously documented assessment. Patient and/or family updated on plan of care and expected duration. Pain level reassessed. Patient is alert, oriented x 3, equal unlabored respirations, skin warm/dry/pink. Vital Signs: 05:05 BP 121 / 93; Pulse 91; Resp 18; Temp 98.6; Pulse Ox 100% ; Weight 68.27 kg; Height 4 rv ft. 11 in. ; Pain 5/10; 06:43 BP 102 / 66; Pulse 73; Resp 18 S; Pulse Ox 100% on R/A; as6 07:50 BP 112 / 72; Pulse 88; Resp 16 S; Pulse Ox 100% on R/A; kc6 08:52 BP 109 / 63; Pulse 87; Resp 18 S; Pulse Ox 99% on R/A; Pain 5/10; kc6 05:05 Body Mass Index 30.40 (68.27 kg, 149.86 cm) rv 05:05 Pain Scale: Adult rv 08:52 Pain Scale: Adult kc6 ED Course: 04:54 Patient arrived in ED. ja2 05:05 Alek Gutierrez, MISHA is Primary Nurse. rv 05:06 Triage completed. rv 05:08 Arm band placed on right wrist. rv 05:08 Patient has correct armband on for positive identification. Placed in gown. Bed in low rv position. Call light in reach. Side rails up X 1. Adult w/ patient. Provided Education on: abd pain, diarrhea, NPO. Client placed on continuous cardiac and pulse oximetry monitoring. NIBP monitoring applied. 05:08 No provider procedures requiring assistance completed. rv 05:09 CBC with Diff Sent. rv 05:09 CMP Sent. rv 05:09 Lipase Sent. rv 05:09 Inserted saline lock: 20 gauge in right antecubital area, using aseptic technique. rv Blood collected. 05:55 Richard Cedeno MD is Attending Physician. sp4 07:00 Report received from MISHA Pham \T\ Kennedy Ceballos RN. kc6 08:37 Attending Physician role handed off by Richard Cedeno MD ms3 08:37 Cristi Liu DO is Attending Physician. ms3 08:44 CT Abd/Pelvis - IV Contrast Only In Process Unspecified. EDMS 09:47 Lion Ashford MD is Referral Physician. ms3 10:33 IV discontinued, intact, bleeding controlled, No redness/swelling at site. Pressure kc6 dressing applied. Administered Medications: 05:23 Drug: NS 0.9% IV 1000 ml Route: IV; Rate: 1 bolus; Site: right antecubital; as6 07:19 Follow up: Response: No adverse reaction; IV Status: Completed infusion; IV Intake: kc6 1000ml 05:23 Drug: Ondansetron IVP 4 mg Route: IVP; Site: right antecubital; as6 07:19 Follow up: Response: No adverse reaction; Nausea unchanged; Vomiting unchanged kc6 06:21 Drug: Diphenoxylate-Atropine PO 2 tabs Route: PO; as6 07:19 Follow up: Response: No adverse reaction kc6 06:21 Drug: Dicyclomine IM 20 mg Route: IM; Site: right vastus lateralis; as6 07:19 Follow up: Response: No adverse reaction kc6 06:48 Drug: metoCLOPramide IVP 10 mg Route: IVP; Site: right antecubital; as6 07:19 Follow up: Response: No adverse reaction; Nausea is decreased; Vomiting decreased kc6 08:36 Drug: Ketorolac IVP 30 mg Route: IVP; Site: right antecubital; kc6 09:25 Follow up: Response: No adverse reaction; Pain is decreased kc6 08:49 Drug: Rocephin - Rocephin (cefTRIAXone) IVPB 1 grams Route: IVPB; Infused Over: 30 kc6 mins; Site: right antecubital; 09:25 Follow up: Response: No adverse reaction; IV Status: Completed infusion; IV Intake: 93isre4 08:49 Drug: NS 0.9% IV 1000 ml Route: IV; Rate: 125 ml/hr; Site: right antecubital; kc6 Medication: 05:08 VIS not applicable for this client. rv Intake: 07:19 IV: 1000ml; Total: 1000ml. kc6 09:25 IV: 50ml; Total: 1050ml. kc6 Outcome: 09:48 Discharge ordered by . ms3 10:33 Discharged to home ambulatory, with significant other. kc6 10:33 Condition: improved 10:33 Discharge instructions given to patient, Instructed on discharge instructions, follow up and referral plans. medication usage, Demonstrated understanding of instructions, follow-up care, medications, Prescriptions given X 1. 10:33 Patient left the ED. kc6 Signatures: Dispatcher [employer] EDMS Alek Gutierrez RN RN rv Sims, Marcus, DO DO ms3 Symone Boyce Ashby, RN RN as6 Maria Esther Restrepo RN RN kc6 Richard Cedeno MD MD sp4
--- NOTE | 2023-05-01 09:49 | EDPHYS ---
Physician Documentation [facility] Name: Beena Garcia Age: 27 yrs Sex: Female : 1995 Arrival Date: 05/01/2023 Time: 04:49 Bed 5 Private MD: ED Physician Cirsti Liu HPI: 05/01 05:56 This 27 yrs old Female presents to ER via Ambulatory with complaints of sp4 Vomiting/Diarrhea. 08:17 Patient presents with abdominal pain mostly lower abdomen associated with nausea sp4 vomiting and diarrhea starting yesterday 8 PM denies any urinary symptoms.. [employer]: 05:09 LMP N/A - Irregular menses rv Historical: - Allergies: 05:06 Codeine (Hives); rv - Home Meds: 05:08 Vitamin Oral [Active]; rv - PMHx: 05:06 miscarriage; UTI; rv - Immunization history:: Adult Immunizations up to date. - Social history:: Smoking status: Patient denies any tobacco usage or history of. - Family history:: not pertinent. ROS: 08:17 Constitutional: Negative for fever, chills, and weight loss, Eyes: Negative for injury, sp4 pain, redness, and discharge, ENT: Negative for injury, pain, and discharge, Neck: Negative for injury, pain, and swelling, Cardiovascular: Negative for chest pain, palpitations, and edema, Respiratory: Negative for shortness of breath, cough, wheezing, and pleuritic chest pain, Abdomen/GI: Negative for constipation, positive for nausea vomiting and diarrhea, positive for lower abdominal pain Back: Negative for injury and pain, : Negative for injury, bleeding, discharge, and swelling, MS/Extremity: Negative for injury and deformity, Skin: Negative for injury, rash, and discoloration, Neuro: Negative for headache, weakness, numbness, tingling, and seizure, Psych: Negative for depression, anxiety, Allergy/Immunology: Negative for hives, rash, and allergies Endocrine: Negative for neck swelling, polydipsia, polyuria, polyphagia, and weight changes Hematologic/Lymphatic: Negative for swollen nodes, abnormal bleeding, and unusual bruising Exam: 08:17 Constitutional: This is a well developed, well nourished patient who is awake, alert, sp4 uncomfortable appearing. Head/Face: Normocephalic, atraumatic. Eyes: Pupils equal round and reactive to light, extra-ocular motions intact. Lids and lashes normal. Conjunctiva and sclera are not injected. Cornea within normal limits. Periorbital areas with no swelling, redness, or edema. ENT: Nares patent. No nasal discharge, no septal abnormalities noted. Tympanic membranes are normal and external auditory canals are clear. Oropharynx with no redness, swelling, or masses, exudates, or evidence of obstruction, uvula midline. Mucous membranes moist. Neck: Trachea midline, no thyromegaly or masses palpated, and no cervical lymphadenopathy. Supple, full range of motion without nuchal rigidity, or vertebral point tenderness. Chest/axilla: Normal chest wall appearance and motion. Nontender with no deformity. No lesions are appreciated. Cardiovascular: Regular rate and rhythm with a normal S1 and S2. No gallops, murmurs, or rubs. Normal PMI, no JVD. No pulse deficits. Respiratory: Lungs have equal breath sounds bilaterally, clear to auscultation and percussion. No rales, rhonchi or wheezes noted. No increased work of breathing, no retractions or nasal flaring. Abdomen/GI: Soft, diffuse bilateral tenderness in the lower abdomen with equivocal rebound. No distention or rigidity. Back: No spinal tenderness. No costovertebral tenderness. Skin: Warm, dry with normal turgor. Normal color with no rashes, no lesions, and no evidence of cellulitis. MS/ Extremity: Pulses equal, no cyanosis. Neurovascular intact. Full, normal range of motion. Neuro: Awake and alert, GCS 15, oriented to person, place, time, and situation. Cranial nerves II-XII grossly intact. Motor strength 5/5 in all extremities. Sensory grossly intact. Psych: Awake, alert, with orientation to person, place and time. Behavior, mood, and affect are within normal limits Vital Signs: 05:05 BP 121 / 93; Pulse 91; Resp 18; Temp 98.6; Pulse Ox 100% ; Weight 68.27 kg; Height 4 rv ft. 11 in. ; Pain 5/10; 06:43 BP 102 / 66; Pulse 73; Resp 18 S; Pulse Ox 100% on R/A; as6 07:50 BP 112 / 72; Pulse 88; Resp 16 S; Pulse Ox 100% on R/A; kc6 08:52 BP 109 / 63; Pulse 87; Resp 18 S; Pulse Ox 99% on R/A; Pain 5/10; kc6 05:05 Body Mass Index 30.40 (68.27 kg, 149.86 cm) rv 05:05 Pain Scale: Adult rv 08:52 Pain Scale: Adult kc6 MDM: 05:56 Patient medically screened. sp4 08:17 Differential diagnosis: Nonspecific abd pain, gastritis, cholecystitis, pancreatitis, sp4 appendicitis, diverticulitis, viral gastroenteritis, gastroenteritis. Data reviewed: vital signs, nurses notes, lab test result(s), amylase and lipase, CBC, electrolytes, hepatic panel, urinalysis, UPT: negative radiologic studies, CT scan. Consideration of Admission/Observation Escalation of care including admission/observation considered. Transition of care: After a detail discussion of the patient's case, care is transferred to Cristi Liu DO. ED course: Patient presents with acute lower abdominal pain. Patient has elevated white count. Mild UTI as well. Will add CT abdomen and pelvis secondary to lower abdominal persistent tenderness. Patient is awaiting CT abdomen pelvis result.. 05/01 05:01 Order name: CBC with Diff; Complete Time: 08:09 05/01 05:01 Order name: CMP; Complete Time: 08:05/01 05:01 Order name: Lipase; Complete Time: 08:05/01 05:01 Order name: Test, Urine; Complete Time: 08:09 05/01 05:01 Order name: Urinalysis w/ reflexes; Complete Time: 08:09 05/01 08:16 Order name: CT Abd/Pelvis - IV Contrast Only; Complete Time: 09:33 sp4 05/01 05:01 Order name: IV Saline Lock; Complete Time: 05:09 05/01 05:01 Order name: Labs collected and sent; Complete Time: 05:09 05/01 08:21 Order name: NPO; Complete Time: 08:22 sp4 Administered Medications: 05:23 Drug: NS 0.9% IV 1000 ml Route: IV; Rate: 1 bolus; Site: right antecubital; as6 07:19 Follow up: Response: No adverse reaction; IV Status: Completed infusion; IV Intake: kc6 1000ml 05:23 Drug: Ondansetron IVP 4 mg Route: IVP; Site: right antecubital; as6 07:19 Follow up: Response: No adverse reaction; Nausea unchanged; Vomiting unchanged kc6 06:21 Drug: Diphenoxylate-Atropine PO 2 tabs Route: PO; as6 07:19 Follow up: Response: No adverse reaction kc6 06:21 Drug: Dicyclomine IM 20 mg Route: IM; Site: right vastus lateralis; as6 07:19 Follow up: Response: No adverse reaction kc6 06:48 Drug: metoCLOPramide IVP 10 mg Route: IVP; Site: right antecubital; as6 07:19 Follow up: Response: No adverse reaction; Nausea is decreased; Vomiting decreased kc6 08:36 Drug: Ketorolac IVP 30 mg Route: IVP; Site: right antecubital; kc6 09:25 Follow up: Response: No adverse reaction; Pain is decreased kc6 08:49 Drug: Rocephin - Rocephin (cefTRIAXone) IVPB 1 grams Route: IVPB; Infused Over: 30 kc6 mins; Site: right antecubital; 09:25 Follow up: Response: No adverse reaction; IV Status: Completed infusion; IV Intake: [id number] 08:49 Drug: NS 0.9% IV 1000 ml Route: IV; Rate: 125 ml/hr; Site: right antecubital; kc6 Disposition Summary: 05/01/23 09:48 Discharge Ordered Location: Home ms3 Condition: Stable ms3 Diagnosis - Lower abdominal pain, unspecified ms3 - Yeast infection ms3 Followup: ms3 - With: Lion Ashfrod MD - When: 2 - 3 days - Reason: Recheck today's complaints Discharge Instructions: - Discharge Summary Sheet ms3 - Abdominal Pain, Adult ms3 - Vaginal Yeast Infection, Adult ms3 Forms: - Medication Reconciliation Form ms3 - Thank You Letter ms3 - Antibiotic Education ms3 - Prescription Opioid Use ms3 - Patient Portal [email or web address].htm ms3 - Work release form kc6 Prescriptions: - Diflucan 150 mg Oral Tablet - take 1 tablet by ORAL route one time for 1 day; 1 tablet; Refills: 0, Product ms3 Selection Permitted Signatures: Dispatcher [employer] Janiya Billingsley RN RN kl Vicente, Ronaldo, RN RN rv Cristi Liu DO DO ms3 Kennedy Ceballos, MISHA RN as6 Maria Esther Restrepo RN RN kc6 Richard Cedeno MD MD sp4
[2023-05-01 12:09] VITALS: BP 109/63; O2SAT 99
== END 2023-05-01 10:33 | disposition home or self-care (01) ==
LOC: ER 04:49
DX: B37.9 Candidiasis, unspecified (principal); Z88.5 Allergy status to narcotic agent
CPT/HCPCS: 96365; 96361; 85025; 81001; 36415; 81025; 83690; 80053; 74177; 96375; 96372; 99285; Q9967; J2765; J0500; J2405; J7030 ×2; J0696

== ENCOUNTER → 2024-01-11 | Emergency (ER) | payer OTHER ==
--- OUTSIDE RECORDS SUMMARY | 2024-01-11 16:32 | XMS REPORT | Continuity of Care Document ---
Author Name Unknown Address [address] [facility] [place] [address] [facility] Address [address] [facility] [address] [place] [address] Care Team Providers Care Alteration Workroom Supervisor Name Role Phone Dai Parisi Primary Care Physicia n UNKNOWN, ATTENDING Attending Clinician Unavailab LIUDMILA Dave Attending Clinician Unavailable Liudmila James PA-C Attending Clinician [phone] Unknown, Attending Attending Clinician Unavailab daya Doctor Unassigned, [facility] Attending Clinician U navailDAI Schwab Attending Clinician Unavail able IVY MONTEJO Attending Clinician UnavailEna Hawkins CNM Attending Clinician [phone] Dai Parisi Attending Clinician + ENA DALTON Attending Clinician UnavailVELIA Garcia Attending Clinician Unavailable Jose Raul Attending Clinician Unavailable JANE TITUS Attending Clinician Unavailable RICHARD AMAYA Attending Clinician Unavailab KARLA Damian Attending Clinician Unavailyarelis Barreto Ang-chp Attending Clinician Unavailable Miranda Marroquin Attending Clinician [phone] Richard Machuca Attending Clinician Unava ilPardeep Yañez DO Attending Clinician [phone] MIRANDA VARELA Attending Clinician Unavailabl sobia Titus_Yessi Admitting Clinician Unavailable Payers Payer Name Policy Type Policy Number Effective Date Expirati on Date Source [place] DARIEL STAR [id number] 2022 00:00:00 [facility] AMANDAS LOULOU (MEDICAID HMO) [id number] 2016 00:00:00 MEDICAID PENDING PENDING 2021 00:00:00 [facility] [id number] 2017 00:00:00 Problems Condition Name Condition Details Condition Category Status Onset Date Resolution Date Last Treatment Date Treating Clinician Comments Source History of abnormal cervical Pap smear History of abnormal cervical Pap smear Disease Active 03-03 00:00: 00 Overview: Formattin g of this note might be different from the original. 2016 Negative PAP [id number] Negative PAP [id number] Negative PAP +[id number], negative [id number] Negative PAP and [id number] Negative PAP and [id number] pending [facility] Other general counseling and advice for contracept rishi management Other general counseling and advice for contracept rishi management Disease Active 03-31 00:00: 00 [facility] Cyst of right ovary Cyst of right ovary Disease Active 04-13 00:00: 00 [facility] Over weight Over weight Disease Active 2016-10 00:00: 00 [facility] Allergies, Adverse Reactions, Alerts Allergy Name Allergy Type Status Severity Reaction(s) Onset Date Inactive Date Treating Clinician Comments Source Codeine Propensi ty to adverse reaction s Active Hives 02-27 00:00: 00 [facility] CODEINE DRUG INGREDI Active Hives 02-27 00:00: 00 [facility] Codeine Allergy to substanc e Active [facility] Social History Social Habit Start Date Stop Date Quantity Comments Source ASSERTION [facility] intake 2023-11-13 00:00:00 2023-11-13 00:00:00 Current drinker of alcohol (finding) [facility] Exposure to SARS-CoV-2 (event) 2023-02-18 00:00:00 2023-02-28 06:11:00 Not sure [facility] Alcohol Comment 2023-02-28 00:00:00 2023-02-28 00:00:00 social [facility] History of Social function 2023-02-28 00:00:00 2023-02-28 00:00:00 [facility] Tobacco use and exposure 2022-06-21 00:00:00 2022-06-21 00:00:00 Smokeless tobacco non-user [facility] Sex Assigned At 1995 00:00:00 1995 00:00:00 [facility] Smoking Status Start Date Stop Date Source Never smoked tobacco [facility] Medications Ordered Medication Name Filled Medication Name Start Date Stop Date Current Medication? Ordering Clinician Indication Dosage Frequency Signature (SIG) Comments Components Source cefdinir 300 mg capsule 01-10 00:00: 00 Yes [id number] 300mg Take 1 capsule by mouth every 12 (twelve) hours. [facility] fluconazole (DIFLUCAN) 150 mg tablet 10-25 00:00: 00 Yes [id number] 150mg Take 1 tablet by mouth every 72 (seventy-t wo) hours. [facility] fluconazole (DIFLUCAN) 150 mg tablet 10-25 00:00: 00 Yes [id number] 150mg Take 1 tablet by mouth every 72 (seventy-t wo) hours. [facility] Nitrofurant oin&Nit. Macrocryst (MACROBID) 100 mg capsule 10-24 00:00: 00 Yes [id number] 100mg Take 1 capsule by mouth in the morning and 1 capsule in the evening. [facility] Nitrofurant oin&Nit. Macrocryst (MACROBID) 100 mg capsule 10-24 00:00: 00 Yes [id number] 100mg Take 1 capsule by mouth in the morning and 1 capsule in the evening. [facility] Nitrofurant oin&Nit. Macrocryst (MACROBID) 100 mg capsule 10-24 00:00: 00 Yes [id number] 100mg Take 1 capsule by mouth in the morning and 1 capsule in the evening. [facility] fluconazole (DIFLUCAN) 150 mg tablet 12 00:00: 00 03-03 04:59 :00 No [id number] 150mg Take 1 tablet by mouth once now for 1 dose. [facility] fluconazole (DIFLUCAN) 150 mg tablet 03-02 00:00: 00 03-03 04:59 :00 No [id number] 150mg Take 1 tablet by mouth once now for 1 dose. Take second tablet in 1 week [facility] fluconazole (DIFLUCAN) 150 mg tablet 03-02 00:00: 00 03-03 04:59 :00 No [id number] 150mg Take 1 tablet by mouth once now for 1 dose. Take second tablet in 1 week [facility] fluconazole (DIFLUCAN) 150 mg tablet 03-02 00:00: 00 03-02 00:00 :00 No [id number] 150mg Take 1 tablet by mouth once now for 1 dose. [facility] phentermine HCl (PHENTERMIN E ORAL) 0 02-28 08:20: 44 Yes Take by mouth. [facility] phentermine HCl (PHENTERMIN E ORAL) 0 10 08:20: 44 Yes Take by mouth. [facility] phentermine HCl (PHENTERMIN E ORAL) 0 10 08:20: 44 Yes Take by mouth. [facility] phentermine HCl (PHENTERMIN E ORAL) 0 -10 08:20: 44 Yes Take by mouth. [facility] phentermine HCl (PHENTERMIN E ORAL) 0 510 08:20: 44 Yes Take by mouth. [facility] phentermine HCl (PHENTERMIN E ORAL) 0 5-10 08:20: 44 Yes Take by mouth. [facility] phentermine HCl (PHENTERMIN E ORAL) 0 5-10 08:20: 44 Yes Take by mouth. [facility] phentermine HCl (PHENTERMIN E ORAL) 02-28 08:20: 44 Yes Take by mouth. [facility] phentermine HCl (PHENTERMIN E ORAL) 02-28 08:20: 44 Yes Take by mouth. [facility] phentermine HCl (PHENTERMIN E ORAL) 02-28 08:20: 44 Yes Take by mouth. [facility] phentermine HCl (PHENTERMIN E ORAL) 02-28 08:20: 44 Yes Take by mouth. [facility] phentermine HCl (PHENTERMIN E ORAL) 02-28 08:20: 44 Yes Take by mouth. [facility] norgestimat e-ethinyl estradioL (ORTHO TRI-CYCLEN, 28,) 0.18/0.215/ 0.25 mg-35 mcg (28) tablet 07-07 00:00: 00 Yes [id number] 1{tbl} Take 1 tablet by mouth in the morning. [facility] norgestimat e-ethinyl estradioL (ORTHO TRI-CYCLEN, 28,) 0.18/0.215/ 0.25 mg-35 mcg (28) tablet 07-07 00:00: 00 Yes [id number] 1{tbl} Take 1 tablet by mouth in the morning. [facility] norgestimat e-ethinyl estradioL (ORTHO TRI-CYCLEN, 28,) 0.18/0.215/ 0.25 mg-35 mcg (28) tablet 07-07 00:00: 00 Yes [id number] 1{tbl} Take 1 tablet by mouth in the morning. [facility] norgestimat e-ethinyl estradioL (ORTHO TRI-CYCLEN, 28,) 0.18/0.215/ 0.25 mg-35 mcg (28) tablet 07-07 00:00: 00 02-28 00:00 :00 No [id number] 1{tbl} Take 1 tablet by mouth in the morning. [facility] norgestimat e-ethinyl estradioL (ORTHO TRI-CYCLEN, 28,) 0.18/0.215/ 0.25 mg-35 mcg (28) tablet 16 00:00: 00 02-28 00:00 :00 No [id number] 1{tbl} Take 1 tablet by mouth in the morning. [facility] norgestimat e-ethinyl estradioL (ORTHO TRI-CYCLEN, 28,) 0.18/0.215/ 0.25 mg-35 mcg (28) tablet 07-07 00:00: 00 02-28 00:00 :00 No [id number] 1{tbl} Take 1 tablet by mouth in the morning. [facility] Nitrofurant oin&Nit. Macrocryst (MACROBID) 100 mg capsule 04-03 00:00: 00 Yes [id number] 100mg Take 1 capsule by mouth 2 (two) times daily. [facility] Nitrofurant oin&Nit. Macrocryst (MACROBID) 100 mg capsule 04-03 00:00: 00 Yes [id number] 100mg Take 1 capsule by mouth 2 (two) times daily. [facility] Nitrofurant oin&Nit. Macrocryst (MACROBID) 100 mg capsule 04-03 00:00: 00 Yes [id number] 100mg Take 1 capsule by mouth 2 (two) times daily. [facility] Nitrofurant oin&Nit. Macrocryst (MACROBID) 100 mg capsule 04-03 00:00: 00 02-28 00:00 :00 No [id number] 100mg Take 1 capsule by mouth 2 (two) times daily. [facility] Nitrofurant oin&Nit. Macrocryst (MACROBID) 100 mg capsule 04-03 00:00: 00 02-28 00:00 :00 No [id number] 100mg Take 1 capsule by mouth 2 (two) times daily. [facility] Nitrofurant oin&Nit. Macrocryst (MACROBID) 100 mg capsule 04-03 00:00: 02-28 00:00 :00 No [id number] 100mg Take 1 capsule by mouth 2 (two) times daily. [facility] PN 67-iron ps-folate no.1-dha (VITAFOL ULTRA) 29 mg iron- 1 mg-200 mg Cap 2020-0 03-22 00:00: 00 10-28 00:00 :00 No [id number] 1{each} Take 1 Each by mouth daily. [facility] PNV 67-iron ps-folate no.1-dha (VITAFOL ULTRA) 29 mg iron- 1 mg-200 mg Cap 03-22 00:00: 00 10-28 00:00 :00 No [id number] 1{each} Take 1 Each by mouth daily. [facility] PNV 67-iron ps-folate no.1-dha (VITAFOL ULTRA) 29 mg iron- 1 mg-200 mg Cap 03-22 00:00: 00 10-28 00:00 :00 No [id number] 1{each} Take 1 Each by mouth daily. [facility] PNV 67-iron ps-folate no.1-dha (VITAFOL ULTRA) 29 mg iron- 1 mg-200 mg Cap 03-22 00:00: 00 10-28 00:00 :00 No [id number] 1{each} Take 1 Each by mouth daily. [facility] norgestimat e-ethinyl estradioL 0.18/0.215/ 0.25 mg-25 mcg tablet 02-23 00:00: 00 10-28 00:00 :00 No [id number] 1{tbl} Take 1 tablet by mouth daily. [facility] norgestimat e-ethinyl estradioL 0.18/0.215/ 0.25 mg-25 mcg tablet 02-23 00:00: 00 10-28 00:00 :00 No [id number] 1{tbl} Take 1 tablet by mouth daily. [facility] norgestimat e-ethinyl estradioL 0.18/0.215/ 0.25 mg-25 mcg tablet 02-23 00:00: 00 10-28 00:00 :00 No [id number] 1{tbl} Take 1 tablet by mouth daily. [facility] norgestimat e-ethinyl estradioL 0.18/0.215/ 0.25 mg-25 mcg tablet 02-23 00:00: 00 10-28 00:00 :00 No [id number] 1{tbl} Take 1 tablet by mouth daily. [facility] metronidazo le 500 mg tablet Take 1 tablet twice a day by oral route for 7 days. metronidazo le 500 mg tablet Take 1 tablet twice a day by oral route for 7 days. No 1 BID metronidaz ole 500 mg tablet Take 1 tablet twice a day by oral route for 7 days. [facility] Provera 10 mg tablet Take 1 tablet every day by oral route for 10 days. Provera 10 mg tablet Take 1 tablet every day by oral route for 10 days. No 1 Q1D Provera 10 mg tablet Take 1 tablet every day by oral route for 10 days. [facility] medroxyprog esterone 10 mg tablet TAKE 1 TABLET BY MOUTH EVERY DAY FOR 10 DAYS medroxyprog esterone 10 mg tablet TAKE 1 TABLET BY MOUTH EVERY DAY FOR 10 DAYS No medroxypro gesterone 10 mg tablet TAKE 1 TABLET BY MOUTH EVERY DAY FOR 10 DAYS [facility] clomiphene citrate 50 mg tablet Take 1 tablet every day by oral route for 5 days. Clomid on cycle day 5- clomiphene citrate 50 mg tablet Take 1 tablet every day by oral route for 5 days. Clomid on cycle day 5- No 1 Q1D clomiphene citrate 50 mg tablet Take 1 tablet every day by oral route for 5 days. Clomid on cycle day 5- [facility] medroxyprog esterone 10 mg tablet TAKE 1 TABLET BY MOUTH EVERY DAY FOR 10 DAYS medroxyprog esterone 10 mg tablet TAKE 1 TABLET BY MOUTH EVERY DAY FOR 10 DAYS No medroxypro gesterone 10 mg tablet TAKE 1 TABLET BY MOUTH EVERY DAY FOR 10 DAYS [facility] Clomid 50 mg tablet TAKE 1 TABLET BY MOUTH ONCE DAILY FOR 5 DAYS Clomid 50 mg tablet TAKE 1 TABLET BY MOUTH ONCE DAILY FOR 5 DAYS No Clomid 50 mg tablet TAKE 1 TABLET BY MOUTH ONCE DAILY FOR 5 DAYS [facility] medroxyprog esterone 10 mg tablet TAKE 1 TABLET BY MOUTH EVERY DAY FOR 10 DAYS medroxyprog esterone 10 mg tablet TAKE 1 TABLET BY MOUTH EVERY DAY FOR 10 DAYS No medroxypro gesterone 10 mg tablet TAKE 1 TABLET BY MOUTH EVERY DAY FOR 10 DAYS [facility] Immunizations Ordered Immunization Name Filled Immunization Name Date Status Comments Source HPV9 2019-09-10 00:00:00 Completed [facility] HPV9 2019-09-10 00:00:00 Completed [facility] HPV9 2019-09-10 00:00:00 Completed [facility] HPV9 2019-09-10 00:00:00 Completed [facility] HPV9 2019-09-10 00:00:00 Completed [facility] HPV9 2019-09-10 00:00:00 Completed [facility] HPV9 2019-09-10 00:00:00 Completed [facility] HPV9 2019-09-10 00:00:00 Completed [facility] HPV9 2019-09-10 00:00:00 Completed [facility] HPV9 2019-06-17 00:00:00 Completed [facility] HPV9 2019-06-17 00:00:00 Completed [facility] HPV9 2019-06-17 00:00:00 Completed [facility] HPV9 2019-06-17 00:00:00 Completed [facility] HPV9 2019-06-17 00:00:00 Completed [facility] HPV9 2019-06-17 00:00:00 Completed [facility] HPV9 2019-06-17 00:00:00 Completed [facility] HPV9 2019-06-17 00:00:00 Completed [facility] HPV9 2019-06-17 00:00:00 Completed [facility] Influenza Virus Vaccine Quad IM 3+ YRS 2016-09-06 00:00:00 Completed [facility] Influenza Virus Vaccine Quad IM 3+ YRS 2016-09-06 00:00:00 Completed [facility] Influenza Virus Vaccine Quad IM 3+ YRS 2016-09-06 00:00:00 Completed [facility] Influenza Virus Vaccine Quad IM 3+ YRS 2016-09-06 00:00:00 Completed [facility] Influenza Virus Vaccine Quad IM 3+ YRS 2016-09-06 00:00:00 Completed [facility] Influenza Virus Vaccine Quad IM 3+ YRS 2016-09-06 00:00:00 Completed [facility] Influenza Virus Vaccine Quad IM 3+ YRS 2016-09-06 00:00:00 Completed [facility] Influenza Virus Vaccine Quad IM 3+ YRS 2016-09-06 00:00:00 Completed [facility] Influenza Virus Vaccine Quad IM 3+ YRS 2016-09-06 00:00:00 Completed [facility] TDAP 2009-10-22 00:00:00 Completed [facility] TDAP 2009-10-22 00:00:00 Completed [facility] TDAP 2009-10-22 00:00:00 Completed [facility] TDAP 2009-10-22 00:00:00 Completed [facility] TDAP 2009-10-22 00:00:00 Completed [facility] TDAP 2009-10-22 00:00:00 Completed [facility] TDAP 2009-10-22 00:00:00 Completed [facility] TDAP 2009-10-22 00:00:00 Completed [facility] TDAP 2009-10-22 00:00:00 Completed [facility] HPV9 Unknown Completed [facility] TDAP Unknown Completed [facility] Influenza Virus Vaccine Quad IM 3+ YRS Unknown Completed [facility] HPV9 Unknown Completed [facility] HPV9 Unknown Completed [facility] TDAP Unknown Completed [facility] Influenza Virus Vaccine Quad IM 3+ YRS Unknown Completed [facility] HPV9 Unknown Completed [facility] HPV9 Unknown Completed [facility] TDAP Unknown Completed [facility] Influenza Virus Vaccine Quad IM 3+ YRS Unknown Completed [facility] HPV9 Unknown Completed [facility] HPV9 Unknown Completed [facility] TDAP Unknown Completed [facility] Influenza Virus Vaccine Quad IM 3+ YRS Unknown Completed [facility] HPV9 Unknown Completed [facility] HPV9 Unknown Completed [facility] TDAP Unknown Completed [facility] Influenza Virus Vaccine Quad IM 3+ YRS Unknown Completed [facility] HPV9 Unknown Completed [facility] HPV9 Unknown Completed [facility] TDAP Unknown Completed [facility] Influenza Virus Vaccine Quad IM 3+ YRS Unknown Completed [facility] HPV9 Unknown Completed [facility] HPV9 Unknown Completed [facility] TDAP Unknown Completed [facility] Influenza Virus Vaccine Quad IM 3+ YRS Unknown Completed [facility] HPV9 Unknown Completed [facility] HPV9 Unknown Completed [facility] TDAP Unknown Completed [facility] Influenza Virus Vaccine Quad IM 3+ YRS Unknown Completed [facility] HPV9 Unknown Completed [facility] HPV9 Unknown Completed [facility] TDAP Unknown Completed [facility] Influenza Virus Vaccine Quad IM 3+ YRS Unknown Completed [facility] HPV9 Unknown Completed [facility] HPV9 Unknown Completed [facility] TDAP Unknown Completed [facility] Influenza Virus Vaccine Quad IM 3+ YRS Unknown Completed [facility] HPV9 Unknown Completed [facility] HPV9 Unknown Completed [facility] TDAP Unknown Completed [facility] Influenza Virus Vaccine Quad IM 3+ YRS Unknown Completed [facility] HPV9 Unknown Completed [facility] HPV9 Unknown Completed [facility] TDAP Unknown Completed [facility] Influenza Virus Vaccine Quad IM 3+ YRS Unknown Completed [facility] HPV9 Unknown Completed [facility] HPV9 Unknown Completed [facility] TDAP Unknown Completed [facility] Influenza Virus Vaccine Quad IM 3+ YRS Unknown Completed [facility] HPV9 Unknown Completed [facility] HPV9 Unknown Completed [facility] TDAP Unknown Completed [facility] Influenza Virus Vaccine Quad IM 3+ YRS Unknown Completed [facility] HPV9 Unknown Completed [facility] HPV9 Unknown Completed [facility] TDAP Unknown Completed [facility] Influenza Virus Vaccine Quad IM 3+ YRS Unknown Completed [facility] HPV9 Unknown Completed [facility] HPV9 Unknown Completed [facility] TDAP Unknown Completed [facility] Influenza Virus Vaccine Quad IM 3+ YRS Unknown Completed [facility] HPV9 Unknown Completed [facility] HPV9 Unknown Completed [facility] TDAP Unknown Completed [facility] Influenza Virus Vaccine Quad IM 3+ YRS Unknown Completed [facility] HPV9 Unknown Completed [facility] Vital Signs Vital Name Observation Time Observation Value Comments S ource Systolic blood pressure 2024-01-11 16:12:00 116 mm[Hg] [facility] Diastolic blood pressure 2024-01-11 16:12:00 79 mm[Hg] [facility] Heart rate 2024-01-11 16:12:00 85 /min [facility] Body temperature 2024-01-11 16:12:00 36.61 Shelly [facility] Respiratory rate 2024-01-11 16:12:00 18 /min [facility] Body height 2024-01-11 16:12:00 154.9 cm [facility] Body weight 2024-01-11 16:12:00 71.532 kg [facility] BMI 2024-01-11 16:12:00 29.80 kg/m2 [facility] Oxygen saturation in Arterial blood by Pulse oximetry 2024-01-11 16:12:00 99 /min [facility] Systolic blood pressure 2023-10-24 19:18:00 119 mm[Hg] [facility] Diastolic blood pressure 2023-10-24 19:18:00 75 mm[Hg] [facility] Heart rate 2023-10-24 19:18:00 98 /min [facility] Body temperature 2023-10-24 19:18:00 37.17 Shelly [facility] Respiratory rate 2023-10-24 19:18:00 16 /min [facility] Body weight 2023-10-24 19:18:00 70.308 kg [facility] BMI 2023-10-24 19:18:00 31.31 kg/m2 [facility] Oxygen saturation in Arterial blood by Pulse oximetry 2023-10-24 19:18:00 97 /min [facility] Systolic blood pressure 2023-02-28 13:12:00 123 mm[Hg] [facility] Diastolic blood pressure 2023-02-28 13:12:00 88 mm[Hg] [facility] Heart rate 2023-02-28 13:12:00 91 /min [facility] Body temperature 2023-02-28 13:12:00 36.83 Shelly [facility] Respiratory rate 2023-02-28 13:12:00 18 /min [facility] Body height 2023-02-28 13:12:00 149.9 cm [facility] Body weight 2023-02-28 13:12:00 66.395 kg [facility] BMI 2023-02-28 13:12:00 29.56 kg/m2 [facility] BP Diastolic 2022-11-02 00:00:00 72 mm[Hg] [facility] Height 2022-11-02 00:00:00 64 [in_i] [facility] BMI (Body Mass Index) 2022-11-02 00:00:00 25 kg/m2 [facility] BP Systolic 2022-11-02 00:00:00 108 mm[Hg] [facility] Body Weight 2022-11-02 00:00:00 145.4 [lb_av] [facility] BP Diastolic 2022-10-12 00:00:00 83 mm[Hg] [facility] Height 2022-10-12 00:00:00 64 [in_i] [facility] BMI (Body Mass Index) 2022-10-12 00:00:00 24.6 kg/m2 [facility] BP Systolic 2022-10-12 00:00:00 114 mm[Hg] [facility] Body Weight 2022-10-12 00:00:00 143.3 [lb_av] [facility] BP Diastolic 2022-09-12 00:00:00 79 mm[Hg] [facility] Height 2022-09-12 00:00:00 64 [in_i] [facility] BMI (Body Mass Index) 2022-09-12 00:00:00 25.6 kg/m2 [facility] BP Systolic 2022-09-12 00:00:00 119 mm[Hg] [facility] Body Weight 2022-09-12 00:00:00 148.9 [lb_av] [facility] Systolic blood pressure 2022-07-07 20:00:00 107 mm[Hg] [place] [facility] Diastolic blood pressure 2022-07-07 20:00:00 67 mm[Hg] [place] [facility] Heart rate 2022-07-07 20:00:00 74 /min [facility] Body temperature 2022-07-07 20:00:00 36.44 Shelly [facility] Respiratory rate 2022-07-07 20:00:00 18 /min [facility] Body height 2022-07-07 20:00:00 149.9 cm [facility] Body weight 2022-07-07 20:00:00 64.921 kg [facility] BMI 2022-07-07 20:00:00 28.91 kg/m2 [facility] Procedures Procedure Date / Time Performed Performing Clinician Source POCT URINALYSIS 2024-01-11 00:00:00 Liudmila James [facility] POCT TEST 2024-01-11 00:00:00 Gwendolyn James [facility] POCT TEST 2023-10-24 19:23:00 Gwendolyn James y [facility] GALV ONLY - VAGINAL PATHOGENS BY NUCLEIC ACID TESTING 2023-10-24 19:20:00 Liudmila James [facility] POCT URINALYSIS 2023-10-24 19:19:00 Liudmila James [facility] ASSIGNMENT OF BENEFITS 2023-10-24 19:09:13 Docto r Unassigned, [facility] CBC WITH DIFF 2023-02-28 13:55:00 Ena Dalton [facility] GLYCOSYLATED HEMOGLOBIN (A1C) 2023-02-28 13:55:00 Ena Dalton [facility] HCV ANTIBODY 2023-02-28 13:55:00 Ena Dalton [facility] GC & CHLAMYDIA AMPLIFIED ASSAY 2023-02-28 13:55:00 Ena Dalton [facility] GALV ONLY - VAGINAL PATHOGENS BY NUCLEIC ACID TESTING 2023-02-28 13:55:00 Ena Dalton [facility] HIV 1/2 AG-AB WITH REFLEX 2023-02-28 13:55:00 Ena Dalton [facility] SYPHILIS IGG/IGM 2023-02-28 13:55:00 Ena Dalton [facility] ASSIGNMENT OF BENEFITS 2023-02-28 12:47:02 Docto r Unassigned, [facility], transvaginal 2022-11-16 00:00:00 [facility] REFERRAL- REQUEST/RESPONSE 2022-10-14 06:01:00 Doctor Unassigned, [facility], transvaginal 2022-09-12 00:00:00 [facility] POCT TEST 2022-07-07 20:02:00 Meet Hicks [facility] Plan of Care Planned Activity Planned Date Details Comments Source Diagnostic Test Pending 2022-11-02 00:00:00 genetic screen, unspecified specimen [code = genetic screen, unspecified specimen] [facility] Diagnostic Test Pending 2022-11-02 00:00:00 lupus anticoagulant, plasma [code = lupus anticoagulant, plasma] [facility] Diagnostic Test Pending 2022-11-02 00:00:00 anticardiolipin igg+igm Ab, serum [code = anticardiolipin igg+igm Ab, serum] [facility] Diagnostic Test Pending 2022-11-02 00:00:00 beta-2 glycoprotein 1 igg+igm Ab, serum [code = beta-2 glycoprotein 1 igg+igm Ab, serum] [facility] Instructions [facility] dical Group Encounters Start Date/Time End Date/Time Encounter Type Admission Type Attending Clinicians Care Facility Care Department Encounter ID Source 2022-10-12 10:36:13 Outpatient [facility] [id number] [facility] 2024-01-11 14:00:00 2024-01-11 14:00:00 Outpatient R UNKNOWN, ATTENDING [facility] [id number] [facility] 2024-01-11 11:00:00 2024-01-11 11:20:14 Outpatient R LIUDMILA JAMES [facility] [id number] [facility] 2024-01-11 11:00:00 2024-01-11 11:20:14 Urgent Care Liudmila James Unknown, Attending [facility] 1..840.114 350.1.13.10 4.2.7.2.686 [id number] [facility] 2023-10-24 13:00:00 2023-10-24 13:27:23 Outpatient Kinsey LIUDMILA JAMES [facility] [id number] [facility] 2023-10-24 13:00:00 2023-10-24 13:27:23 Urgent Care Liudmila James Unknown, Attending [facility] 1..840.114 350.1.13.10 4.2.7.2.686 [id number] [facility] 2023-10-24 00:00:00 2023-10-24 00:00:00 Orders Only Doctor Unassigned, [facility] 1..840.114 350.1.13.10 4.2.7.2.686 [id number] [facility] 2023-04-23 13:15:00 2023-04-23 13:15:00 Outpatient R DAI HICKS [facility] [id number] [facility] 2023-04-02 14:30:00 2023-04-02 14:30:00 Outpatient IVY MENON [facility] [id number] [facility] 2023-03-31 00:00:00 2023-03-31 00:00:00 Patient Secure Ena Borja [facility] PROGRAM TRAINER [facility] CHILD [facility] 1.2.840.114 350.1.13.10 4.2.7.2.686 [id number] [facility] 2023-03-02 00:00:00 2023-03-02 00:00:00 Case Management Ena Dalton [facility] PROGRAM TRAINER [facility] & CHILD [facility] 1.2.840.114 350.1.13.10 4.2.7.2.686 [id number] [facility] 2023-03-02 00:00:00 2023-03-02 00:00:00 Telephone Dai Hicks [facility] PROGRAM TRAINER [facility] CHILD [facility] 1.2.840.114 350.1.13.10 4.2.7.2.686 [id number] [facility] 2023-03-02 00:00:00 2023-03-02 00:00:00 Patient Secure Msg Ena Dalton [facility] PROGRAM TRAINER [facility] CHILD [facility] 1.2.840.114 350.1.13.10 4.2.7.2.686 [id number] [facility] 2023-02-28 07:45:00 2023-02-28 08:57:53 Office Visit Ena Dalton [facility] PROGRAM TRAINER [facility] CHILD [facility] 1.2.840.114 350.1.13.10 4.2.7.2.686 [id number] [facility] 2023-02-28 07:45:00 2023-02-28 08:57:53 Outpatient R ENA DALTON [facility] [id number] [facility] 2023-02-28 00:00:00 2023-02-28 00:00:00 Orders Only Doctor Unassigned, [facility] 1.2.840.114 350.1.13.10 4.2.7.2.686 [id number] [facility] 2023-01-30 14:45:00 2023-01-30 14:45:00 Outpatient Kinsey ENA DALTON [facility] [id number] [facility] 2022-12-19 14:30:00 2022-12-19 14:30:00 Outpatient VELIA BAINS [facility] [id number] [facility] 2022-11-16 00:00:00 2022-11-16 00:00:00 Outpatient White_M MM[facility] [id number] [facility] 2022-11-16 00:00:00 2022-11-16 00:00:00 [facility] [address] [facility] [address], [place] [address] , Ph. [phone] [facility] [id number] [facility] 2022-11-02 15:26:00 2022-11-02 15:26:00 Outpatient JANE CHARLES [facility] [id number] [facility] 2022-11-02 00:00:00 2022-11-02 00:00:00 Jane [facility]: [address] [address] , Ph. [phone] MMG [facility] OBGYSue [id number] [facility] 2022-10-14 00:00:00 2022-10-14 00:00:00 Orders Only Doctor Unassigned, [facility] 1.2.840.114 350.1.13.10 4.2.7.2.686 [id number] [facility] 2022-10-12 00:00:00 2022-10-12 00:00:00 Outpatient White_M MMG MMG [id number] [facility] 2022-10-12 00:00:00 2022-10-12 00:00:00 Outpatient White_M MMG MM[place] [id number] [facility] 2022-10-12 00:00:00 2022-10-12 00:00:00 Jane BISHOP Titus-BC: [address] [facility] [address], [place] [address] , Ph. [phone] MMG [facility] [id number] [facility] 2022-10-06 09:00:00 2022-10-06 09:00:00 Outpatient DAI BAKER [facility] [id number] [facility] 2022-09-12 15:04:00 2022-09-12 15:04:00 Outpatient JANE CHARLES [facility] [id number] [facility] 2022-09-12 00:00:00 2022-09-12 00:00:00 Outpatient White_M MMG [facility] [id number] [facility] 2022-09-12 00:00:00 2022-09-12 00:00:00 BISHOP Gray-BC: [address] [facility] [address] [place] [address] , Ph. [phone] MMG [facility] [place] - OBGYN [id number] [facility] 2022-07-07 14:45:00 2022-07-07 15:27:14 Office Visit Dai Hicks [facility] PROGRAM TRAINER [facility] 1.2.840.114 350.1.13.10 4.2.7.2.686 [id number] [facility] 2022-07-07 14:45:00 2022-07-07 15:27:14 Outpatient DAI BAKER [facility] [id number] [facility] 2022-07-07 14:45:00 2022-07-07 14:45:00 Outpatient DAI BAKER [facility] [id number] [facility] 2022-07-07 08:15:00 2022-07-07 08:15:00 Outpatient R MONIQUE SHAEJAYA [facility] [id number] [facility] 2022-06-27 00:00:00 2022-06-27 00:00:00 Patient Secure Msg Dai Hicks [facility] PROGRAM TRAINER [facility] & CHILD [facility] 1..840.114 350.1.13.10 4.2.7.2.686 [id number] [facility] 2022-06-21 10:30:00 2022-06-21 11:49:35 Office Visit Dai Hicks [facility] PROGRAM TRAINER [facility] & CHILD [facility] 1..840.114 350.1.13.10 4.2.7.2.686 [id number] [facility] 2022-06-21 10:30:00 2022-06-21 11:49:35 Outpatient R DAI HICKS [facility] [id number] [facility] 2022-06-21 10:30:00 2022-06-21 10:30:00 Outpatient R DAI HICKS [facility] [id number] [facility] 2022-06-19 10:15:00 2022-06-19 10:15:00 Outpatient R DAI HICKS [facility] [id number] [facility] 2022-06-16 14:00:00 2022-06-16 14:00:00 Outpatient R DAI HICKS [facility] [id number] [facility] 2022-06-16 00:00:00 2022-06-16 00:00:00 Telephone Dai Hicks [facility] PROGRAM TRAINER [facility] CHILD [facility] 1..840.114 350.1.13.10 4.2.7.2.686 [id number] [facility] 2022-04-25 08:15:00 2022-04-25 08:15:00 Outpatient R DAI HICKS [facility] [id number] [facility] 2022-04-18 14:15:00 2022-04-18 14:15:00 Outpatient R DAI HICKS [facility] [id number] [facility] 2022-04-14 00:00:00 2022-04-14 00:00:00 Telephone Dai Hicks [facility] PROGRAM TRAINER [facility] & CHILD [facility] 1.2.840.114 350.1.13.10 4.2.7.2.686 [id number] [facility] 2022-04-14 00:00:00 2022-04-14 00:00:00 Patient Secure Msg Dai Hicks [facility] PROGRAM TRAINER [facility] & CHILD [facility] 1.2.840.114 350.1.13.10 4.2.7.2.686 [id number] [facility] 2022-04-04 00:00:00 2022-04-04 00:00:00 Patient Secure Msg Dai Hicks [facility] PROGRAM TRAINER [facility] CHILD [facility] 1.2.840.114 350.1.13.10 4.2.7.2.686 [id number] [facility] 2022-04-03 00:00:00 2022-04-03 00:00:00 Patient Secure Msg Dai Hicks [facility] PROGRAM TRAINER [facility] CHILD [facility] 1.2.840.114 350.1.13.10 4.2.7.2.686 [id number] [facility] 2022-04-03 00:00:00 2022-04-03 00:00:00 Telephone Dai Hicks [facility] PROGRAM TRAINER [facility] & CHILD [facility] 1.2.840.114 350.1.13.10 4.2.7.2.686 [id number] [facility] 2022-03-31 16:00:00 2022-03-31 16:29:52 Outpatient R DAI HICKS [facility] [id number] [facility] 2022-03-31 16:00:00 2022-03-31 16:29:52 Office Visit Dai Hicks [facility] PROGRAM TRAINER [facility] CH[facility] 1.2.840.114 350.1.13.10 4.2.7.2.686 [id number] [facility] 2022-03-31 00:00:00 2022-03-31 00:00:00 Orders Only Doctor Unassigned, [place] [facility] 1..840.114 350.1.13.10 4.2.7.2.686 [id number] [facility] 2022-01-30 13:00:00 2022-01-30 13:00:00 Outpatient R INDRA, KARLA [facility] [id number] [facility] 2021-11-12 00:00:00 2021-11-12 00:00:00 Patient Secure Msg Doctor Unassigned, [facility] 1.2.840.114 350.1.13.10 4.2.7.2.686 [id number] [facility] 2021-11-11 14:00:00 2021-11-11 14:00:00 Outpatient R DAI HICKS [facility] [id number] [facility] 2021-11-11 14:00:00 2021-11-11 14:00:00 Outpatient R DAI HICKS [facility] [id number] [facility] 2021-10-28 13:45:00 2021-10-28 14:59:43 Outpatient R DAI HICKS [facility] [id number] [facility] 2021-10-28 13:45:00 2021-10-28 14:59:43 Office Visit Dai Hicks [facility] PROGRAM TRAINER [facility] & CHILD [facility] 1.840.114 350.1.13.10 4.2.7.2.686 [id number] [facility] 2021-05-25 00:00:00 2021-05-25 00:00:00 Telephone Dai Hicks [facility] PROGRAM TRAINER [facility] CHILD [facility] 1.840.114 350.1.13.10 4.2.7.2.686 [id number] [facility] 2021-05-24 15:15:00 2021-05-24 15:15:00 Outpatient R DAI HICKS [facility] [id number] [facility] 2021-05-11 16:00:00 2021-05-11 16:00:00 Outpatient R DAI HICKS [facility] [id number] [facility] 2021-04-26 00:00:00 2021-04-26 00:00:00 Telephone Dai Hicks [facility] .840.114 350.1.13.10 4.2.7.2.686 [id number] [facility] 2021-04-14 13:45:00 2021-04-14 13:45:00 Outpatient P [facility] [id number] [facility] 2021-04-05 15:45:00 2021-04-05 15:45:00 Outpatient R DAI HICKS [facility] [id number] [facility] 2021-04-04 00:00:00 2021-04-04 00:00:00 Patient Secure Msg Doctor Unassigned, [place] [facility] 1.840.114 350.1.13.10 4.2.7.2.686 [id number] [facility] 2021-03-30 00:00:00 2021-03-30 00:00:00 Patient Secure Msg Doctor Unassigned, [place] [facility] 1.2840.114 350.1.13.10 4.2.7.2.686 [id number] [facility] 2021-03-25 00:00:00 2021-03-25 00:00:00 Telephone Dai Hicks [facility] PROGRAM TRAINER [facility] & CHILD [facility] 1.2840.114 350.1.13.10 4.2.7.2.686 [id number] 2021-03-25 00:00:00 2021-03-25 00:00:00 Telephone Dai Hicks [facility] PROGRAM TRAINER [facility] & CHILD [facility] 1.20.114 350.1.13.10 4.2.7.2.686 [id number] [facility] 2021-03-24 10:30:23 2021-03-24 10:47:41 Assisted Living Assistant Visit Lab, Miranda Crespo [facility] PROGRAM TRAINER [facility] & CHILD [facility] 1.2840.114 350.1.13.10 4.2.7.2.686 [id number] [facility] 2021-03-24 10:30:00 2021-03-24 10:30:00 Outpatient R [facility] [id number] [facility] 2021-03-24 00:00:00 2021-03-24 00:00:00 Patient Secure Msg Doctor Unassigned, [place] [facility] 1.20.114 350.1.13.10 4.2.7.2.686 [id number] [facility] 2021-03-24 00:00:00 2021-03-24 00:00:00 Telephone Dai Hicks [facility] PROGRAM TRAINER [facility] & CHILD [facility] 1.2.840.114 350.1.13.10 4.2.7.2.686 [id number] [facility] 2021-03-23 00:00:00 2021-03-23 00:00:00 Patient Secure Msg Richard Amaya [facility] PROGRAM TRAINER [facility] & CHILD [facility] 1.2.840.114 350.1.13.10 4.2.7.2.686 [id number] [facility] 2021-03-22 15:10:35 2021-03-22 15:25:35 Initial Visit Dai Hicks [facility] PROGRAM TRAINER [facility] & CHILD [facility] 1.2.840.114 350.1.13.10 4.2.7.2.686 [id number] [facility] 2021-03-22 15:00:00 2021-03-22 15:00:00 Outpatient R DAI HICKS [facility] [id number] [facility] 2021-03-22 00:00:00 2021-03-22 00:00:00 Orders Only Doctor Unassigned, [place] [facility] 1.2.840.114 350.1.13.10 4.2.7.2.686 [id number] [facility] 2021-02-23 13:08:12 2021-02-23 13:35:01 Office Visit Richard Amaya [facility] PROGRAM TRAINER [facility] CHILD [facility] 1.2.840.114 350.1.13.10 4.2.7.2.686 [id number] [facility] 2021-02-23 13:00:00 2021-02-23 13:00:00 Outpatient R RICHARD AMAYA [facility] [id number] [facility] 2021-02-16 09:30:00 2021-02-16 09:30:00 Outpatient R [facility] [id number] [facility] 2021-02-16 09:30:00 2021-02-16 09:30:00 Outpatient JACY GRAVESROSA [facility] [id number] [facility] 2021-02-14 00:00:00 2021-02-14 00:00:00 Patient Secure Msg Doctor Unassigned, [place] [facility] PROGRAM TRAINER [facility] & CHILD [facility] 1.2840.114 350.1.13.10 4.2.7.2.686 [id number] [facility] 2021-02-14 00:00:00 2021-02-14 00:00:00 Patient Secure Msg Doctor Unassigned, [place] [facility] 1.2840.114 350.1.13.10 4.2.7.2.686 [id number] [facility] 2021-02-02 10:05:24 2021-02-02 11:11:24 Routine Visit Amaya, Richard Euceda [facility] 1.2840.114 350.1.13.10 4.2.7.2.686 [id number] [facility] 2021-02-02 10:00:00 2021-02-02 10:00:00 Outpatient Kinsey AMAYARICHARD [facility] [id number] [facility] 2021-02-02 00:00:00 2021-02-02 00:00:00 Orders Only Doctor Unassigned, [place] [facility] 1.2840.114 350.1.13.10 4.2.7.2.686 [id number] [facility] 2021-02-01 14:45:00 2021-02-01 14:45:00 Outpatient Kinsey AMAYAIRCHARD [facility] [id number] [facility] 2021-01-31 13:45:00 2021-01-31 13:45:00 Outpatient RICHARD GRAVES [facility] [id number] [facility] 2021-01-11 00:00:00 2021-01-11 00:00:00 Patient Outreach Prem Pardeep Curielan [facility] 1..840.114 350.1.13.10 4.2.7.2.686 [id number] [facility] 2021-01-10 14:26:11 2021-01-10 15:14:43 Initial Visit Richard Amaya [facility] PROGRAM TRAINER [facility] 1.2.840.114 350.1.13.10 4.2.7.2.686 [id number] [facility] 2021-01-10 14:00:00 2021-01-10 14:00:00 Outpatient RICHARD GRAVES [facility] [id number] [facility] 2021-01-10 00:00:00 2021-01-10 00:00:00 Orders Only Doctor Unassigned, [place] [facility] 1.2.840.114 350.1.13.10 4.2.7.2.686 [id number] [facility] 2021-01-03 14:00:00 2021-01-03 14:00:00 Outpatient R [facility] [id number] [facility] 2021-01-03 12:45:00 2021-01-03 12:45:00 Outpatient RICHARD GRAVES [facility] [id number] [facility] 2020-12-28 13:15:00 2020-12-28 13:15:00 Outpatient RICHARD GRAVES [facility] [id number] [facility] 2020-11-29 00:00:00 2020-11-29 00:00:00 Telephone Richard Amaya [facility] PROGRAM TRAINER [facility] 1.2.840.114 350.1.13.10 4.2.7.2.686 [id number] [facility] 2020-11-24 14:45:48 2020-11-24 15:26:28 Office Visit Monique Richrad Euceda [facility] PROGRAM TRAINER [facility] & CHILD [facility] 1.2.840.114 350.1.13.10 4.2.7.2.686 [id number] [facility] 2020-11-24 14:45:00 2020-11-24 14:45:00 Outpatient RICHARD GRAVES [facility] [id number] [facility] 2020-11-24 00:00:00 2020-11-24 00:00:00 Orders Only Doctor Unassigned, [place] [facility] 1.2840.114 350.1.13.10 4.2.7.2.686 [id number] [facility] 2020-09-14 13:30:00 2020-09-14 13:30:00 Outpatient RICHARD GRAVES [facility] [id number] [facility] 2020-09-13 00:00:00 2020-09-13 00:00:00 Telephone Richard Amaya [facility] PROGRAM TRAINER [facility]ILD [facility] [id number] [id number] [id number] [id number] [facility] 2020-09-09 15:00:00 2020-09-09 15:00:00 Outpatient RICHARD GRAVES [facility] [id number] [facility] 2020-09-01 12:45:00 2020-09-01 12:45:00 Outpatient RICHARD GRAVES [facility] [id number] [facility] 2020-09-01 12:45:00 2020-09-01 12:45:00 Outpatient R RICHARD AMAYA [facility] [id number] [facility] 2020-07-29 09:45:00 2020-07-29 09:45:00 Outpatient R DAI HICKS [facility] [id number] [facility] 2020-07-29 09:45:00 2020-07-29 09:45:00 Outpatient R DAI HICKS [facility] [id number] [facility] 2020-06-08 10:45:00 2020-06-08 10:45:00 Outpatient R DAI HICKS [facility] [id number] [facility] 2020-06-08 10:45:00 2020-06-08 10:45:00 Outpatient R DAI HICKS [facility] [id number] [facility] 2020-04-13 11:00:57 2020-04-13 11:44:15 Office Visit Richard Amaya [facility] PROGRAM TRAINER [facility] 1..840.114 350.1.13.10 [id number] [id number] [facility] 2020-04-13 11:00:00 2020-04-13 11:00:00 Outpatient R AMAYARICHARD Crow [facility] [id number] [facility] 2020-04-13 09:45:00 2020-04-13 09:45:00 Outpatient R MIRANDA VARELA [facility] [id number] [facility] 2020-03-09 10:30:00 2020-03-09 10:30:00 Outpatient R RICHARD AMAYA [facility] [id number] [facility] 2020-03-04 00:00:00 2020-03-04 00:00:00 Telephone Miranda Varela [facility] PROGRAM TRAINER [facility] 1..840.114 350.1.13.10 [id number] [id number] [facility] 2020-01-12 15:30:00 2020-01-12 15:30:00 Outpatient R MIRANDA VARELA [facility] [id number] [facility] 2020-01-07 00:00:00 2020-01-07 00:00:00 Patient Secure Msg Doctor Unassigned, [place] [facility] 1..840.114 350.1.13.10 4.2.7.2.686 [id number] [facility] 2020-01-05 13:19:07 2020-01-05 14:07:46 Office Visit Dai Hicks [facility] 1..840.114 350.1.13.10 4.2.7.2.686 [id number] 107 [id number] [facility] 2020-01-05 13:15:00 2020-01-05 13:15:00 Outpatient R DAI HICKS [facility] [id number] [facility] 2019-12-12 08:00:00 2019-12-12 08:00:00 Outpatient R RICHARD AMAYA [facility] [id number] [facility] 2019-12-11 00:00:00 2019-12-11 00:00:00 Patient Secure Msg Miranda Varela [facility] 1..840.114 350.1.13.10 4.2.7.2.686 [id number] [facility] 2019-12-08 11:15:24 2019-12-08 11:43:05 Office Visit Richard Amaya [facility] PROGRAM TRAINER [facility] CHILD [facility] 1..840.114 350.1.13.10 4.2.7.2.686 [id number] 107 [id number] [facility] 2019-12-08 00:00:00 2019-12-08 00:00:00 Orders Only Doctor Unassigned, [place] [facility] 1.2.840.114 350.1.13.10 4.2.7.2.686 [id number] [facility] 2019-11-28 00:00:00 2019-11-28 00:00:00 Telephone Miranda Varela [facility] PROGRAM TRAINER [facility] 1.2.840.114 350.1.13.10 4.2.7.2.686 [id number] [facility] 2019-11-25 08:40:20 2019-11-25 09:30:23 Office Visit Miranda Varela [facility] 1.2.840.114 350.1.13.10 4.2.7.2.686 [id number] 107 [id number] [facility] 2019-11-25 00:00:00 2019-11-25 00:00:00 Telephone Miranda Varela [facility] 1.2.840.114 350.1.13.10 4.2.7.2.686 [id number] [facility] 2019-11-05 00:00:00 2019-11-05 00:00:00 Telephone Dai Hicks [facility] PRO[facility] TRA[facility] 1.2.840.114 350.1.13.10 4.2.7.2.686 [id number] 107 [id number] [facility] 2019-06-17 12:53:35 2019-06-17 13:48:17 Office Visit Miranda Varela [facility] 1.2.840.114 350.1.13.10 4.2.7.2.686 [id number] 107 [id number] [facility] 2019-06-17 00:00:00 2019-06-17 00:00:00 Orders Only Doctor Unassigned, [place] [facility] 1.2.840.114 350.1.13.10 4.2.7.2.686 [id number] [facility] Results Test Description Test Time Test Comments Results Result Co mments Source [facility] Urinalysis W Specific [id number] 16:19:00* Test Item Value Reference Range Interpretation Comme nts POCT U SP GRAV (test code = 3255) 1.025 mg/dl 1.005-1.025 POCT PH U (test code = 3254) 5 mg/dl 5-8 POCT U LEUK EST (test code = 3263) + Negative - Negative POCT U NIT (test code = 3262) Negative Negative - Negati ve POCT U PROT (test code = 3259) Trace Negative - Negative POCT U GLU (test code = 3256) Negative Negative - Negati ve POCT U KETONE (test code = 3258) Negative Negative - Negative POCT U UROBILI (test code = 3260) Negative 0.2-1 POCT U BILI (test code = 3261) Negative Negative - Negative POCT U BLD (test code = 3257) About 250 Negative - Negati ve POCT U COLOR (test code = 3266) Yellow POCT U APPEAR (test code = 3267) Cloudy Lab Interpretation (test cod e = 26290-8) Abnormal [facility] [id number] 19:24:00* Test Item Value Reference Range Interpretation Comme nts POCT PREG (test code = 1605) Negative On board controls acceptable with C Line (test code = 3574) Yes POCT PREG LOT # (test code = 3575) POCT PREG TEST DATE (test code = 3576) CECIL (test code = CECIL) accurate developme nt and interpretation of all internal controls Lab Interpretation (test code = 39356-8) Normal [facility] [id number] 19:24:00* Test Item Value Reference Range Interpretation Comme nts POCT PREG (test code = 1605) Negative On board controls acceptable with C Line (test code = 3574) Yes POCT PREG LOT # (test code = 3575) POCT PREG TEST DATE (test code = 3576) CECIL (test code = CECIL) accurate developme nt and interpretation of all internal controls Lab Interpretation (test code = 94331-8) Normal [facility] Urinalysis W Specific [id number] 19:20:00* Test Item Value Reference Range Interpretation Comme nts POCT U SP GRAV (test code = 3255) 1.020 mg/dl 1.005-1.025 POCT PH U (test code = 3254) 5 mg/dl 5-8 POCT U LEUK EST (test code = 3263) + Negative - Negative POCT U NIT (test code = 3262) neg Negative - Negative POCT U PROT (test code = 3259) trace Negative - Negative POCT U GLU (test code = 3256) normal Negative - Negative POCT U KETONE (test code = 3258) neg Negative - Negative POCT U UROBILI (test code = 3260) normal 0.2-1 POCT U BILI (test code = 3261) neg Negative - Negative POCT U BLD (test code = 3257) trace Negative - Negative POCT U COLOR (test code = 3266) yellow POCT U APPEAR (test code = 3267) cloudy CECIL (test code = CECIL) accurate developme nt and interpretation of all internal controls Lab Interpretation (test code = 44062-3) Normal [facility] Urinalysis W Specific [id number] 19:20:00* Test Item Value Reference Range Interpretation Comme nts POCT U SP GRAV (test code = 3255) 1.020 mg/dl 1.005-1.025 POCT PH U (test code = 3254) 5 mg/dl 5-8 POCT U LEUK EST (test code = 3263) + Negative - Negative POCT U NIT (test code = 3262) neg Negative - Negative POCT U PROT (test code = 3259) trace Negative - Negative POCT U GLU (test code = 3256) normal Negative - Negative POCT U KETONE (test code = 3258) neg Negative - Negative POCT U UROBILI (test code = 3260) normal 0.2-1 POCT U BILI (test code = 3261) neg Negative - Negative POCT U BLD (test code = 3257) trace Negative - Negative POCT U COLOR (test code = 3266) yellow POCT U APPEAR (test code = 3267) cloudy CECIL (test code = CECIL) accurate developme nt and interpretation of all internal controls Lab Interpretation (test code = 08803-4) Normal [facility] ONLY - SYPHILIS IGG/[id number] 15:05:59* Test Item Value Reference Range Interpretation Comme nts Syphilis IgG/IgM (test code = 03033-5) Non-reactive Non-reactive CECIL (test code = CECIL) Non-reactive - No serologic evidence of T. pallidum infection. Cannot exclude incubating or early syphilis. Submit a second specimen in 2-4 weeks if syphilis is clinically suspected. Equivocal - Further testing to follow. Reactive - Further testing to follow. Lab Interpretation (test code = 51014-6) Normal [facility] ONLY - SYPHILIS IGG/[id number] 15:05:59* Test Item Value Reference Range Interpretation Comme nts Syphilis IgG/IgM (test code = 22511-0) Non-reactive Non-reactive CECIL (test code = CECIL) Non-reactive - No serologic evidence of T. pallidum infection. Cannot exclude incubating or early syphilis. Submit a second specimen in 2-4 weeks if syphilis is clinically suspected. Equivocal - Further testing to follow. Reactive - Further testing to follow. Lab Interpretation (test code = 20201-3) Normal [facility] ONLY - SYPHILIS IGG/[id number] 15:05:59* Test Item Value Reference Range Interpretation Comme [facility] Syphilis IgG/IgM (test code = 59473-0) Non-reactive Non-reactive CECIL (test code = CECIL) Non-reactive - No serologic evidence of T. pallidum infection. Cannot exclude incubating or early syphilis. Submit a second specimen in 2-4 weeks if syphilis is clinically suspected. Equivocal - Further testing to follow. Reactive - Further testing to follow. Lab Interpretation (test code = 65844-4) Normal [facility] 1/2 AG-AB WITH [id number] 06:58:27* Test Item Value Reference Range Interpretation Comme [facility] HIV Semi-quantitative (test code = 16377-8) 0.12 Negative CECIL (test code = CECIL) Non-reactive for HIV-1 antigen and HIV-1/HIV-2 antibodies. ?No laboratory evidence of HIV infection. ?Repeat in 2-4 weeks if acute HIV infection is suspected. [facility] 1/2 AG-AB WITH [id number] 06:58:27* Test Item Value Reference Range Interpretation Comme nts HIV Semi-quantitative (test code = 98283-1) 0.12 Negative CECIL (test code = CECIL) Non-reactive for HIV-1 antigen and HIV-1/HIV-2 antibodies. ?No laboratory evidence of HIV infection. ?Repeat in 2-4 weeks if acute HIV infection is suspected. [facility] 1/2 AG-AB WITH [id number] 06:58:27* Test Item Value Reference Range Interpretation Comme nts HIV Semi-quantitative (test code = 68456-5) 0.12 Negative CECIL (test code = CECIL) Non-reactive for HIV-1 antigen and HIV-1/HIV-2 antibodies. ?No laboratory evidence of HIV infection. ?Repeat in 2-4 weeks if acute HIV infection is suspected. [facility] [id number] 05:29:42* Test Item Value Reference Range Interpretation Comme nts HCV Ab (test code = 41452-6) Negative HCV Semi-Quantitative (test code = 51258-5) 0.01 [facility] [id number] 05:29:42* Test Item Value Reference Range Interpretation Comme nts HCV Ab (test code = 62193-7) Negative HCV Semi-Quantitative (test code = 58749-4) 0.01 [facility] [id number] 05:29:42* Test Item Value Reference Range Interpretation Comme nts HCV Ab (test code = 07952-7) Negative HCV Semi-Quantitative (test code = 42916-1) 0.01 [facility] (A1C)2023-03-01 05:25:25* Test Item Value Reference Range Interpretation Comme nts HGB A1C (test code = 4548-4) 5.3 % 4.0-5.7 CECIL (test code = CECIL) Reference RangesNormal: <5.7%Prediabetes: 5.7 - 6.4%Diabetes: > 6.5% Lab Interpretation (test code = 34281-6) Normal [facility]A1C)2023-03-01 05:25:25* Test Item Value Reference Range Interpretation Comme nts HGB A1C (test code = 4548-4) 5.3 % 4.0-5.7 CECIL (test code = CECIL) Reference RangesNormal: <5.7%Prediabetes: 5.7 - 6.4%Diabetes: > 6.5% Lab Interpretation (test code = 49817-1) Normal [facility]A1C)2023-03-01 05:25:25* Test Item Value Reference Range Interpretation Comme nts HGB A1C (test code = 4548-4) 5.3 % 4.0-5.7 CECIL (test code = CECIL) Reference RangesNormal: <5.7%Prediabetes: 5.7 - 6.4%Diabetes: > 6.5% Lab Interpretation (test code = 47173-4) Normal [facility] WITH [id number] 05:04:15* Test Item Value Reference Range Interpretation Comme nts WBC (test code = 6690-2) 9.14 See_Comment [Automated messa ge] The system which generated this result transmitted reference range: 4.30 - 11.10 10*3/?L. The reference range was not used to interpret this result as normal/abnormal. RBC (test code = 789-8) 4.95 See_Comment [Automated [employer]] The system which generated this result transmitted reference range: 3.93 - 5.25 10*6/?L. The reference range was not used to interpret this result as normal/abnormal. HGB (test code = 718-7) 15.0 g/dL 11.6-15.0 HCT (test code = 4544-3) 46.2 % 35.7-45.2 H MCV (test code = 787-2) 93.3 fL 80.6-95.5 MCH (test code = 785-6) 30.3 pg 25.9-32.8 MCHC (test code = 786-4) 32.5 g/dL 31.6-35.1 RDW-SD (test code = 26883-1) 43.6 fL 39.0-49.9 RDW-CV (test code = 788-0) 12.8 % 12.0-15.5 PLT (test code = 777-3) 326 See_Comment [Automated messa ge] The system which generated this result transmitted reference range: 166 - 358 10*3/?L. The reference range was not used to interpret this result as normal/abnormal. MPV (test code = 28692-2) 10.1 fL 9.5-12.9 NRBC/100 WBC (test code = 0387590730) 0.0 See_Comment [Automated [employer] ssage] The system which generated this result transmitted reference range: 0.0 - 10.0 /100 WBCs. The reference range was not used to interpret this result as normal/abnormal. NRBC x10^3 (test code = 9041417290) See_Comment [Automated messa ge] The system which generated this result transmitted reference range: 10*3/?L. The reference range was not used to interpret this result as normal/abnormal. GRAN MAT (NEUT) % (test code = 770-8) 59.5 % IMM GRAN % (test code = 0695228367) 0.10 % LYMPH % (test code = 736-9) 31.2 % MONO % (test code = 5905-5) 5.9 % EOS % (test code = 713-8) 2.8 % BASO % (test code = 706-2) 0.5 % GRAN MAT x10^3(ANC) (test code = 9620114671) 5.43 10*3/uL 1.88-7.09 IMM GRAN x10^3 (test code = 2925807304) 0.00-0.06 LYMPH x10^3 (test code = 731-0) 2.85 10*3/uL 1.32-3.29 MONO x10^3 (test code = 742-7) 0.54 10*3/uL 0.33-0.92 EOS x10^3 (test code = 711-2) 0.26 10*3/uL 0.03-0.39 BASO x10^3 (test code = 704-7) 0.05 10*3/uL 0.01-0.07 Lab Interpretation (test code = 29548-6) Abnormal [facility] WITH [id number] 05:04:15* Test Item Value Reference Range Interpretation Comme nts WBC (test code = 6690-2) 9.14 See_Comment [Automated messa ge] The system which generated this result transmitted reference range: 4.30 - 11.10 10*3/?L. The reference range was not used to interpret this result as normal/abnormal. RBC (test code = 789-8) 4.95 See_Comment [Automated messa ge] The system which generated this result transmitted reference range: 3.93 - 5.25 10*6/?L. The reference range was not used to interpret this result as normal/abnormal. HGB (test code = 718-7) 15.0 g/dL 11.6-15.0 HCT (test code = 4544-3) 46.2 % 35.7-45.2 H MCV (test code = 787-2) 93.3 fL 80.6-95.5 MCH (test code = 785-6) 30.3 pg 25.9-32.8 MCHC (test code = 786-4) 32.5 g/dL 31.6-35.1 RDW-SD (test code = 82925-2) 43.6 fL 39.0-49.9 RDW-CV (test code = 788-0) 12.8 % 12.0-15.5 PLT (test code = 777-3) 326 See_Comment [Automated messa ge] The system which generated this result transmitted reference range: 166 - 358 10*3/?L. The reference range was not used to interpret this result as normal/abnormal. MPV (test code = 18372-5) 10.1 fL 9.5-12.9 NRBC/100 WBC (test code = 8218716774) 0.0 See_Comment [Automated [employer] ssage] The system which generated this result transmitted reference range: 0.0 - 10.0 /100 WBCs. The reference range was not used to interpret this result as normal/abnormal. NRBC x10^3 (test code = 9467503880) See_Comment [Automated messa ge] The system which generated this result transmitted reference range: 10*3/?L. The reference range was not used to interpret this result as normal/abnormal. GRAN MAT (NEUT) % (test code = 770-8) 59.5 % IMM GRAN % (test code = 4043725698) 0.10 % LYMPH % (test code = 736-9) 31.2 % MONO % (test code = 5905-5) 5.9 % EOS % (test code = 713-8) 2.8 % BASO % (test code = 706-2) 0.5 % GRAN MAT x10^3(ANC) (test code = 6643938694) 5.43 10*3/uL 1.88-7.09 IMM GRAN x10^3 (test code = 6292138984) 0.00-0.06 LYMPH x10^3 (test code = 731-0) 2.85 10*3/uL 1.32-3.29 MONO x10^3 (test code = 742-7) 0.54 10*3/uL 0.33-0.92 EOS x10^3 (test code = 711-2) 0.26 10*3/uL 0.03-0.39 BASO x10^3 (test code = 704-7) 0.05 10*3/uL 0.01-0.07 Lab Interpretation (test code = 85752-6) Abnormal [facility] WITH [id number] 05:04:15* Test Item Value Reference Range Interpretation Comme nts WBC (test code = 6690-2) 9.14 See_Comment [Automated [employer]] The system which generated this result transmitted reference range: 4.30 - 11.10 10*3/?L. The reference range was not used to interpret this result as normal/abnormal. RBC (test code = 789-8) 4.95 See_Comment [[employer]ated [employer]] The system which generated this result transmitted reference range: 3.93 - 5.25 10*6/?L. The reference range was not used to interpret this result as normal/abnormal. HGB (test code = 718-7) 15.0 g/dL 11.6-15.0 HCT (test code = 4544-3) 46.2 % 35.7-45.2 H MCV (test code = 787-2) 93.3 fL 80.6-95.5 MCH (test code = 785-6) 30.3 pg 25.9-32.8 MCHC (test code = 786-4) 32.5 g/dL 31.6-35.1 RDW-SD (test code = 72592-1) 43.6 fL 39.0-49.9 RDW-CV (test code = 788-0) 12.8 % 12.0-15.5 PLT (test code = 777-3) 326 See_Comment [Automated messa ge] The system which generated this result transmitted reference range: 166 - 358 10*3/?L. The reference range was not used to interpret this result as normal/abnormal. MPV (test code = 43759-7) 10.1 fL 9.5-12.9 NRBC/100 WBC (test code = 4246089715) 0.0 See_Comment [Automated [employer] ssage] The system which generated this result transmitted reference range: 0.0 - 10.0 /100 WBCs. The reference range was not used to interpret this result as normal/abnormal. NRBC x10^3 (test code = 6177105532) See_Comment [Automated messa ge] The system which generated this result transmitted reference range: 10*3/?L. The reference range was not used to interpret this result as normal/abnormal. GRAN MAT (NEUT) % (test code = 770-8) 59.5 % IMM GRAN % (test code = 3706546865) 0.10 % LYMPH % (test code = 736-9) 31.2 % MONO % (test code = 5905-5) 5.9 % EOS % (test code = 713-8) 2.8 % BASO % (test code = 706-2) 0.5 % GRAN MAT x10^3(ANC) (test code = 1731018653) 5.43 10*3/uL 1.88-7.09 IMM GRAN x10^3 (test code = 3301170873) 0.00-0.06 LYMPH x10^3 (test code = 731-0) 2.85 10*3/uL 1.32-3.29 MONO x10^3 (test code = 742-7) 0.54 10*3/uL 0.33-0.92 EOS x10^3 (test code = 711-2) 0.26 10*3/uL 0.03-0.39 BASO x10^3 (test code = 704-7) 0.05 10*3/uL 0.01-0.07 Lab Interpretation (test code = 56698-7) Abnormal [facility], [id number] 14:10:00 * Test Item Value Reference Range Interpretation Comme nts PTT-la (test code = PTT-la) 29.5 sec 0.0-51.9 dilute aixa viper venom (test code = dilute aixa viper venom) 29.0 sec 0.0-47.0 interpretation (test code = interpretation) comment: See_Comment [Automate d message] The system which generated this result transmitted reference range: .. The reference range was not used to interpret this result as normal/abnormal. [facility] and [facility] - [id number] 19:14:00* Test Item Value Reference Range Interpretation Comme nts beta 2 glyco,IgG (test code = beta 2 glyco,IgG) <9 0-20 beta 2 glyco,IgA (test code = beta 2 glyco,IgA) <9 0-25 beta 2 glycoprot,IgM (test c ode = beta 2 glycoprot,IgM) <9 0-32 [facility] and IgM panel - [id number] 19:14:00 * Test Item Value Reference Range Interpretation Comme nts anticardiolipin Ab IgG (test code = anticardiolipin Ab IgG) <9 0-14 anticardiolipin Ab IgM (test code = anticardiolipin Ab IgM) <9 0-12 [facility]rfx HPV if ASCUS+leukorrhea panel rfx vance species{contains CA/Ga/TV/ctng}2022-10-13 00:00:00* Test Item Value Reference Range Interpretation Comme nts Pap w/rflx HPV,leuk panel,rf lx can spec (test code = Pap w/rflx HPV,leuk panel,rflx can spec) normal CT/NG (test code = CT/NG) normal trichomonas vaginalis addon - swab (test code = trichomonas vaginalis addon - swab) normal gardnerella (test code = gardnerella) normal vance - swab (test code = vance - swab) normal [facility] Center[facility]inal[facility] macro (dipstick) panel - [id number] 09:40:09* Test Item Value Reference Range Interpretation Comme nts Leukocytes (test code = Leukocytes) Trace Nitrite (test code = Nitrite) negative Urobilinogen (test code = Urobilinogen) .2 Protein (test code = Protein) Negative pH (test code = pH) 5.5 Blood (test code = Blood) Negative Specific Bicknell (test code = Specific Bicknell) 1.030 Ketone (test code = Ketone) Negative Bilirubin (test code = Bilirubin) Small Glucose (test code = Glucose) Negative Appearance (test code = Appearance) Cloudy Color (test code = Color) Yellow [facility] CenterUrinalysis macro (dipstick) panel - [id number] 09:40:09* Test Item Value Reference Range Interpretation Comme nts Leukocytes (test code = Leukocytes) Trace Nitrite (test code = Nitrite) negative Urobilinogen (test code = Urobilinogen) .2 Protein (test code = Protein) Negative pH (test code = pH) 5.5 Blood (test code = Blood) Negative Specific Bicknell (test code = Specific Bicknell) 1.030 Ketone (test code = Ketone) Negative Bilirubin (test code = Bilirubin) Small Glucose (test code = Glucose) Negative Appearance (test code = Appearance) Cloudy Color (test code = Color) Yellow [facility] - cancer history assessment [id number] 08:33:00 * Test Item Value Reference Range Interpretation Comme [facility] - cancer history assessment result (test code = [facility] - cancer history assessment result) does not meet criteria [facility] - cancer history assessment lfbjgz1634-18-91 08:33:00 * Test Item Value Reference Range Interpretation Comme [facility] - cancer history assessment result (test code = [facility] - cancer history assessment result) does not meet criteria [facility]CT + NG + TV, DNA, urine/jwqk8381-47-47 00:00:00* Test Item Value Reference Range Interpretation Comme [facility] vance - swab (test code = vance - swab) normal gardnerella (test code = gardnerella) abnormal A CT/NG (test code = CT/NG) normal trichomonas vaginalis addon - swab (test code = trichomonas vaginalis addon - swab) normal [facility] Center[facility] macro (dipstick) panel - [id number] 14:03:06* Test Item Value Reference Range Interpretation Comme nts Leukocytes (test code = Leukocytes) Negative Nitrite (test code = Nitrite) negative Urobilinogen (test code = Urobilinogen) .2 Protein (test code = Protein) Negative pH (test code = pH) 6.0 Blood (test code = Blood) Negative Specific Bicknell (test code = Specific Bicknell) 1.030 Ketone (test code = Ketone) Negative Bilirubin (test code = Bilirubin) Negative Glucose (test code = Glucose) Negative Appearance (test code = Appearance) Clear Color (test code = Color) Yellow [facility] CenterUrinalysis macro (dipstick) panel - [id number] 14:03:06* Test Item Value Reference Range Interpretation Comme nts Leukocytes (test code = Leukocytes) Negative Nitrite (test code = Nitrite) negative Urobilinogen (test code = Urobilinogen) .2 Protein (test code = Protein) Negative pH (test code = pH) 6.0 Blood (test code = Blood) Negative Specific Bicknell (test code = Specific Bicknell) 1.030 Ketone (test code = Ketone) Negative Bilirubin (test code = Bilirubin) Negative Glucose (test code = Glucose) Negative Appearance (test code = Appearance) Clear Color (test code = Color) Yellow [facility] CenterPOCT [id number] 20:02:00* Test Item Value Reference Range Interpretation Comme nts POCT PREG (test code = 1605) Negative On board controls acceptable with C Line (test code = 3574) Yes POCT PREG LOT # (test code = 3575) POCT PREG TEST DATE ( test code = 3576) [facility] Notes Date/Time Note Provider Source 2023-10-24 13:00:00 [id number] [id number] v8KU1+8Gz0uRX+s+2T+oz10054-09-34K17:00:00A ddended by: LIUDMILA JAMES on: 10/25/2023 03:51 PMModules accepted: Orders [id number] BinipabpTC7027-78-57P22:51:06Addendum [id number] 74946|[id number] for patient lngj25377-4QvqmMENLPZNYHIGFghrkcumh C-CDA narrative text[address] Wg[id number] SEBRMCQAZBRSJYEK7048-81-98F59:51:061.2.840 .143958.1.72.3.15|1.2.840.777669.1.13.104. 2.7.2.727879_[id number] [facility]"
[2024-01-11 17:16] LABS: Absolute Eosinophils 0.3 K/uL (0-0.5); Absolute Lymphocytes (CBC) 2.8 K/uL (0.7-4.9); Absolute Monocytes 0.7 K/uL (0.1-1.3); Basophils % 0.5 % (0-1.3); Eosinophils % 2.8 % (0-4.4); Hematocrit 39.8 % (36.0-45.0); Hemoglobin 13.8 g/dL (12.0-15.0); Lymphocytes % 28.3 % (15.3-44.8); MCH 30.6 pg (27.0-35.0); MCHC 34.7 g/dL (32.0-36.0); MCV 88.1 fL (80-100); MPV 7.6 fL (7.6-11.3); Monocytes % 7.6 % (3.3-12.3); Neutrophils % 60.8 % (41.7-73.7); Nucleated Red Blood Cells % 0.1 % (0-0); Platelets 300 thou/uL (152-406); RBC Red Blood Cell Count 4.51 M/uL (3.86-4.86); Red Cell Distribution Width 13.2 % (12.1-15.2)
--- NOTE | 2024-01-11 17:30 | RAD REPORT ---
EXAM DESCRIPTION: US - Abdomen Exam Limited - 01/11/2024 5:08 pm CLINICAL HISTORY: ABD PAIN COMPARISON: No comparisons FINDINGS: The gallbladder demonstrates shadowing gallstone. No pericholecystic fluid or gallbladder wall thickening. The common bile duct is normal measuring 3 mm. The liver demonstrates no findings of intrahepatic biliary dilatation. IMPRESSION: Cholelithiasis
[2024-01-11 17:32] LABS: Albumin 3.8 g/dL (3.4-5.0); Anion Gap 5.6 mEq/L (5.0-15.0); Bilirubin Total 0.5 mg/dL (0.2-1.0); Globulin 3.8 g/dL (2.3-3.5); Potassium 3.6 mEq/L (3.5-5.1); Protein, Total 7.6 g/dL (6.4-8.2)
[2024-01-11 17:42] LABS: Specific Gravity 1.007 (1.005-1.030); Urine Bacteria <20 /HPF (<20); Urine Bilirubin NEGATIVE (Negative); Urine Blood Trace (Negative); Urine Clarity Extremely Turbid (Clear); Urine Color Colorless (Yellow); Urine Culture Reflex Order NOT NEEDED; Urine Glucose NEGATIVE (Negative); Urine Ketones NEGATIVE (Negative); Urine Microscopic Reflex YN ORDER UMIC; Urine Mucus Slight /HPF (None Seen); Urine Nitrite NEGATIVE (Negative); Urine Protein NEGATIVE (Negative); Urine RBC <5 /HPF (None Seen); Urine Urobilinogen Normal (Normal); Urine WBC <5 /HPF (<5); Urine pH 5.5 (5.0-7.0)
[2024-01-11 17:44] LABS: Specific Gravity 1.007 (1.005-1.030)
--- NOTE | 2024-01-11 18:11 | RAD REPORT ---
EXAM DESCRIPTION: CTAbdomen Pelvis W Contrast - 01/11/2024 5:53 pm CLINICAL HISTORY: Abdominal pain. ABD PAIN COMPARISON: Abdomen Pelvis W Contrast dated 05/01/2023 TECHNIQUE: Biphasic CT imaging of the abdomen and pelvis was performed with 100 ml non-ionic IV cont rast. All CT scans are performed using dose optimization technique as appropriate and may include automated exposure control or mA/KV adjustment according to patient size. FINDINGS: The lung bases are clear. The liver, spleen, pancreas, adrenal glands and kidneys are within normal limits. No bowel obstruction, free air, free fluid or abscess. The appendix is normal. No evidence of signi ficant lymphadenopathy. Small fat containing umbilical hernia. Mild sigmoid diverticulosis without di verticulitis. No suspicious bony findings. IMPRESSION: No acute intra-abdominal or pelvic finding.
--- NOTE | 2024-01-11 18:13 | EDPHYS ---
Physician Documentation [facility] Name: Beena Garcia Age: 28 yrs Sex: Female : 1995 Arrival Date: 01/11/2024 Time: 16:27 Bed 19 Private MD: ED Physician Eduard Grady HPI: 01/10 16:57 This 28 yrs old Female presents to ER via Ambulatory with complaints of rn Abdominal Pain, Low Back Pain. 16:57 The patient presents with pain that is acute, with no known mechanism of injury. The rn symptoms are located in the right mid back and right low back. The pain radiates to the right shoulder. Onset: The symptoms/episode began/occurred 2 day(s) ago. Modifying factors: The patient symptoms are alleviated by nothing, the patient symptoms are aggravated by any movement. Severity of symptoms: At their worst the symptoms were moderate, in the emergency department the symptoms are unchanged. The patient has experienced similar episodes in the past. The patient has been recently seen by a physician:. Patient reports 2 days of right flank pain, radiates around to abdomen and up to right shoulder. No fever. No vomiting. Seen at clinic today and diagnosed with UTI, prescribed cefdinir. Patient reports pain got worse so came here for further evaluation. Reports recurrent UTIs but no kidney stones in the past. No chest pain.. 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 - Social history:: Smoking status: Reported history of juuling and/or vaping. - Hospitalizations: : No recent hospitalization is reported. ROS: 16:57 Constitutional: Negative for fever, chills, and weight loss, Eyes: Negative for injury, rn pain, redness, and discharge, Cardiovascular: Negative for chest pain, palpitations, and edema, Respiratory: Negative for shortness of breath, cough, wheezing, and pleuritic chest pain, Abdomen/GI: Positive for right-sided abdominal and flank pain Back: Positive for right flank pain MS/Extremity: Negative for injury and deformity, Skin: Negative for injury, rash, and discoloration, Neuro: Negative for headache, weakness, numbness, tingling, and seizure, Exam: 16:57 Constitutional: This is a well developed, well nourished patient who is awake, alert, rn and in no acute distress. Head/Face: Normocephalic, atraumatic. Neck: Trachea midline, no masses palpated, and no cervical lymphadenopathy. Supple, full range of motion without nuchal rigidity, or vertebral point tenderness. No Meningismus. Cardiovascular: Regular rate and rhythm. No pulse deficits. Respiratory: No increased work of breathing, no retractions or nasal flaring. Abdomen/GI: Soft mild right upper quadrant tenderness, negative Lee sign Back: No spinal tenderness. No costovertebral tenderness. Full range of motion. MS/ Extremity: Pulses equal, no cyanosis. Neuro: Awake and alert, GCS 15 Vital Signs: 16:40 BP 130 / 80; Pulse 74; Resp 16; Temp 98.1; Pulse Ox 97% on R/A; Weight 72.12 kg; Height iw 5 ft. 1 in. ; Pain 7/10; 18:58 BP 133 / 78; Pulse 79; Resp 16; Pulse Ox 99% on R/A; kd3 16:40 Body Mass Index 30.04 (72.12 kg, 154.94 cm) iw 16:40 Pain Scale: Adult iw MDM: 16:40 Patient medically screened. rn 17:46 Differential diagnosis: UTI, Pyelonephritis, cholecystitis, cholelithiasis. Data rn reviewed: vital signs, nurses notes, lab test result(s), radiologic studies, ultrasound. Special discussion: Based on the history and exam findings, there is no indication for further emergent testing or inpatient evaluation. I discussed with the patient/guardian the need to see the general surgeon for further evaluation of the symptoms. 01/10 16:55 Order name: CBC with Diff; Complete Time: 17:29 rn 01/10 16:55 Order name: CMP; Complete Time: 17:41 rn 01/10 16:55 Order name: Lipase; Complete Time: 17:41 rn 01/10 16:55 Order name: Test, Urine; Complete Time: 17:59 rn 01/10 16:55 Order name: Urinalysis w/ reflexes; Complete Time: 17:45 rn 01/10 16:55 Order name: CT Abd/Pelvis - IV Contrast Only; Complete Time: 18:11 rn 01/10 16:55 Order name: US Abdomen Limited; Complete Time: 17:41 rn 01/10 16:55 Order name: IV Saline Lock; Complete Time: 17:05 rn 01/10 16:55 Order name: Labs collected and sent; Complete Time: 17:05 rn Administered Medications: No medications were administered Disposition Summary: 01/11/24 18:12 Discharge Ordered Notes: Location: Home rn Problem: new rn Symptoms: have improved rn Condition: Stable rn Diagnosis - Other cholelithiasis without obstruction rn Followup: rn - With: Private Physician - When: As needed - Reason: Recheck today's complaints, Re-evaluation by your physician Discharge Instructions: - Discharge Summary Sheet rn - Cholelithiasis rn Forms: - Medication Reconciliation Form rn - Thank You Letter rn - Antibiotic professor of journalism - Prescription Opioid Use rn - Patient Portal Instructions rn - Leadership Thank You Letter rn Signatures: Dispatcher [employer] Priscila Ohara RN RN iw Nieto, Roman, MD MD rn Doucette, Kyli, RN RN kd3 Corrections: (The following items were deleted from the chart) 18:58 16:42 Home Meds: None; mayra kd3
--- NOTE | 2024-01-11 18:13 | ER ---
Nurse's Notes [facility] Name: Beena Garcia Age: 28 yrs Sex: Female : 1995 Arrival Date: 01/11/2024 Time: 16:27 Bed 19 Private MD: Diagnosis: Other cholelithiasis without obstruction Presentation: 01/10 16:40 Chief complaint: Patient states: 3 days ago started having right back pain and now i iw radiates to the front, denies urinary s/s, was seen at a clinic today and started on antibiotics for UTI. pain 04/30. Coronavirus screen: At this time, the client does not indicate any symptoms associated with coronavirus-19. Ebola Screen: Patient negative for fever greater than or equal to 101.5 degrees Fahrenheit, and additional compatible Ebola Virus Disease symptoms Patient denies exposure to infectious person. Patient denies travel to an Ebola-affected area in the 21 days before illness onset. No symptoms or risks identified at this time. Risk Assessment: Do you want to hurt yourself or someone else? Patient reports no desire to harm self or others. 16:40 Method Of Arrival: Ambulatory iw 16:40 Acuity: LETTY 3 iw 18:57 Initial Sepsis Screen: Does the patient meet any 2 criteria? No. Patient's initial kd3 sepsis screen is negative. Does the patient have a suspected source of infection? No. Patient's initial sepsis screen is negative. Onset of symptoms was January 11, 2024. 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 - Social history:: Smoking status: Reported history of juuling and/or vaping. - Hospitalizations: : No recent hospitalization is reported. Screenin:57 [facility] ED Fall Risk Assessment (Adult) History of falling in the last 3 months, kd3 including since admission No falls in past 3 months (0 pts) Confusion or Disorientation No (0 pts) Intoxicated or Sedated No (0 pts) Impaired Gait No (0 pts) Mobility Assist Device Used No (0 pt) Altered Elimination No (0 pt) Score/Fall Risk Level 0 - 2 = Low Risk Oriented to surroundings. Abuse screen: Denies threats or abuse. Denies injuries from another. Nutritional screening: No deficits noted. Tuberculosis screening: No symptoms or risk factors identified. Assessment: 18:56 General: Appears in no apparent distress. Behavior is calm, cooperative. Pain: kd3 Complains of pain in abdomen and right low back and right mid back. GI: Bowel sounds present X 4 quads. Abd is soft X 4 quads. Vital Signs: 16:40 BP 130 / 80; Pulse 74; Resp 16; Temp 98.1; Pulse Ox 97% on R/A; Weight 72.12 kg; Height iw 5 ft. 1 in. ; Pain 7/10; 18:58 BP 133 / 78; Pulse 79; Resp 16; Pulse Ox 99% on R/A; kd3 16:40 Body Mass Index 30.04 (72.12 kg, 154.94 cm) iw 16:40 Pain Scale: Adult ED Course: 16:30 Patient arrived in ED. rg4 16:39 Eduard Grady MD is Attending Physician. rn 16:42 Triage completed. iw 16:42 Arm band placed on. 16:57 Radiology exam delayed due to IV insertion attempt and/or patient not having nj appropriate IV at this time. 16:57 Radiology exam delayed due to lab results not completed at this time. (BUN/Creatinine). ny 16:57 Radiology exam delayed due to test not completed at this time. ny 17:05 [facility] with Diff [facility] 17:05 CMP Sent. 6 17:05 Lipase Sent. 6 17:05 Test, Urine Sent. 6 17:05 Urinalysis w/ reflexes Sent. 6 17:05 Initial lab(s) drawn, by pa, sent to lab. Inserted saline lock: 20 gauge in right bc6 antecubital area, using aseptic technique. Blood collected. 17:11 US Abdomen Limited In Process Unspecified. EDMS 17:54 CT Abd/Pelvis - IV Contrast Only In Process Unspecified. EDMS 18:56 Georgiana Gray, RN is Primary Nurse. 3 18:57 Patient has correct armband on for positive identification. Provided Education on: . kd3 18:57 No provider procedures requiring assistance completed. IV discontinued, intact, kd3 bleeding controlled, No redness/swelling at site. Pressure dressing applied. Administered Medications: No medications were administered Medication: 18:58 VIS not applicable for this client. kd3 Outcome: 18:12 Discharge ordered by . rn 18:57 Discharged to home ambulatory, kd3 18:57 Condition: stable 18:57 Discharge instructions given to patient, family, Instructed on discharge instructions, follow up and referral plans. Demonstrated understanding of instructions, follow-up care, 18:59 Patient left the ED. kd3 Signatures: Dispatcher [employer] EDMS Priscila Allen RN Eduard Barksdale MD MD rn Garcia, Rubi rg4 Juan Reddy Kyli, RN RN kd3 Pam Fletcher 6 Corrections: (The following items were deleted from the chart) 18:58 16:42 Home Meds: None; kd3
[2024-01-11 19:51] VITALS: BP 133/78; TEMP 98.1; O2SAT 99
== END ==
LOC: ER 16:27
DX: K80.80 Other cholelithiasis without obstruction (principal); Z88.5 Allergy status to narcotic agent
CPT/HCPCS: 85025; 81001; 36415; 81025; 83690; 80053; 74177; 76705; 99283; Q9967

== ENCOUNTER 2024-01-17 17:39 | Emergency (ER) | payer OTHER ==
--- OUTSIDE RECORDS SUMMARY | 2024-01-17 17:44 | XMS REPORT | Continuity of Care Document ---
Author Name Unknown Address [address] [facility] [place] [address] [facility] thconnect Address [address] [facility] [address] [place] [address] Care Team Providers Care Bilingual Nanny Name Role Phone Dai Parisi Primary Care Physicia n Ariela_Yessi Attending Clinician Unavailable UNKNOWN, ATTENDING Attending Clinician Unavailab LIUDMILA Dave Attending Clinician Unavailable Liudmila James PA-C Attending Clinician [phone] Unknown, Attending Attending Clinician Unavailab le Doctor Unassigned, [place] Attending Clinician U navailable DAI HICKS Attending Clinician Unavail able IVY MONTEJO Attending Clinician UnavailEna Hawkins CNM Attending Clinician [phone] Dai Parisi Attending Clinician + ENA DALTON Attending Clinician Unavaila VELIA Haynes Attending Clinician Unavailable JANE TITUS Attending Clinician Unavailable RICHARD AMAYA Attending Clinician Unavailab KARLA Damian Attending Clinician Unavailyarelis Barreto Ang-Rmchp Attending Clinician Unavailable Miranda Marroquin Attending Clinician [phone] Richard Machuca Attending Clinician Unava ilPardeep Yañez DO Attending Clinician [phone] MIRANDA VARELA Attending Clinician Unavailyarelis Titus_Yessi Admitting Clinician Unavailable Payers Payer Name Policy Type Policy Number Effective Date Expirati on Date Source [facility] (MEDICAID HMO) [id number] 2016 00:00:00 VANDANA JAMIL [id number] 2022 00:00:00 MEDICAID PENDING PENDING 2021 00:00:[address] [facility] [id number] 2017 00:00:00 Problems Condition Name Condition Details Condition Category Status Onset Date Resolution Date Last Treatment Date Treating Clinician Comments Source History of abnormal cervical Pap smear History of abnormal cervical Pap smear Disease Active 03-03 00:00: 00 Overview: Formattin g of this note might be different from the original. 2016 Negative PAP [id number] Negative PAP [id number] Negative PAP +HPV, negative [id number] Negative PAP and [id number] Negative PAP and [id number] pending [facility] Other general counseling and advice for contracept rishi management Other general counseling and advice for contracept rishi management Disease Active 03-31 00:00: 00 [facility] Cyst of right ovary Cyst of right ovary Disease Active 04-13 00:00: 00 [facility] Over weight Over weight Disease Active 2016-10 00:00: 00 [facility] Allergies, Adverse Reactions, Alerts Allergy Name Allergy Type Status Severity Reaction(s) Onset Date Inactive Date Treating Clinician Comments Source Codeine Propensi ty to adverse reaction s Active Hives 02-27 00:00: 00 [facility] CODEINE DRUG INGREDI Active Hives 02-27 00:00: 00 [facility] Codeine Allergy to substanc e Active [facility] Social History Social Habit Start Date Stop Date Quantity Comments Source ASSERTION [facility] 2023-11-13 00:00:00 2023-11-13 00:00:00 Current drinker of alcohol (finding) [facility] Exposure to SARS-CoV-2 (event) 2023-02-18 00:00:00 2023-02-28 06:11:00 Not sure [facility] Alcohol Comment 2023-02-28 00:00:00 2023-02-28 00:00:00 social [facility] History of Social function 2023-02-28 00:00:00 2023-02-28 00:00:00 [facility] Tobacco use and exposure 2022-06-21 00:00:00 2022-06-21 00:00:00 Smokeless tobacco non-user [facility] Sex Assigned At 1995 00:00:00 1995 00:00:00 [facility] Smoking Status Start Date Stop Date Source Never smoked tobacco [facility] Medications Ordered Medication Name Filled Medication Name Start Date Stop Date Current Medication? Ordering Clinician Indication Dosage Frequency Signature (SIG) Comments Components Source cefdinir 300 mg capsule 01-10 00:00: 00 Yes [id number] 300mg Take 1 capsule by mouth every 12 (twelve) hours. [facility] fluconazole (DIFLUCAN) 150 mg tablet 10-25 00:00: 00 Yes [id number] 150mg Take 1 tablet by mouth every 72 (seventy-t wo) hours. [facility] fluconazole (DIFLUCAN) 150 mg tablet 10-25 00:00: 00 Yes [id number] 150mg Take 1 tablet by mouth every 72 (seventy-t wo) hours. [facility] Nitrofurant oin&Nit. Macrocryst (MACROBID) 100 mg capsule 10-24 00:00: 00 Yes [id number] 100mg Take 1 capsule by mouth in the morning and 1 capsule in the evening. [facility] Nitrofurant oin&Nit. Macrocryst (MACROBID) 100 mg capsule 10-24 00:00: 00 Yes [id number] 100mg Take 1 capsule by mouth in the morning and 1 capsule in the evening. [facility] Nitrofurant oin&Nit. Macrocryst (MACROBID) 100 mg capsule 10-24 00:00: 00 Yes [id number] 100mg Take 1 capsule by mouth in the morning and 1 capsule in the evening. [facility] fluconazole (DIFLUCAN) 150 mg tablet 03-02 00:00: 00 03-03 04:59 :00 No [id number] 150mg Take 1 tablet by mouth once now for 1 dose. [facility] fluconazole (DIFLUCAN) 150 mg tablet 03-02 00:00: 00 03-03 04:59 :00 No [id number] 150mg Take 1 tablet by mouth once now for 1 dose. Take second tablet in 1 week [facility] fluconazole (DIFLUCAN) 150 mg tablet 03-02 00:00: 00 03-03 04:59 :00 No [id number] 150mg Take 1 tablet by mouth once now for 1 dose. Take second tablet in 1 week [facility] fluconazole (DIFLUCAN) 150 mg tablet 03-02 00:00: 00 03-02 00:00 :00 No [id number] 150mg Take 1 tablet by mouth once now for 1 dose. [facility] phentermine HCl (PHENTERMIN E ORAL) 0 02-28 08:20: 44 Yes Take by mouth. [facility] phentermine HCl (PHENTERMIN E ORAL) 0 02-28 08:20: 44 Yes Take by mouth. [facility] phentermine HCl (PHENTERMIN E ORAL) 10 08:20: 44 Yes Take by mouth. [facility] phentermine HCl (PHENTERMIN E ORAL) 0 10 08:20: 44 Yes Take by mouth. [facility] phentermine HCl (PHENTERMIN E ORAL) 0 10 08:20: 44 Yes Take by mouth. [facility] phentermine HCl (PHENTERMIN E ORAL) 0 510 08:20: 44 Yes Take by mouth. [facility] phentermine HCl (PHENTERMIN E ORAL) 0 5-10 08:20: 44 Yes Take by mouth. [facility] phentermine HCl (PHENTERMIN E ORAL) 02-28 08:20: 44 Yes Take by mouth. [facility] phentermine HCl (PHENTERMIN E ORAL) 02-28 08:20: 44 Yes Take by mouth. [facility] phentermine HCl (PHENTERMIN E ORAL) 02-28 08:20: 44 Yes Take by mouth. [facility] phentermine HCl (PHENTERMIN E ORAL) 02-28 08:20: 44 Yes Take by mouth. [facility] phentermine HCl (PHENTERMIN E ORAL) 02-28 08:20: 44 Yes Take by mouth. [facility] norgestimat e-ethinyl estradioL (ORTHO TRI-CYCLEN, 28,) 0.18/0.215/ 0.25 mg-35 mcg (28) tablet 07-07 00:00: 00 Yes [id number] 1{tbl} Take 1 tablet by mouth in the morning. [facility] norgestimat e-ethinyl estradioL (ORTHO TRI-CYCLEN, 28,) 0.18/0.215/ 0.25 mg-35 mcg (28) tablet 07-07 00:00: 00 Yes [id number] 1{tbl} Take 1 tablet by mouth in the morning. [facility] norgestimat e-ethinyl estradioL (ORTHO TRI-CYCLEN, 28,) 0.18/0.215/ 0.25 mg-35 mcg (28) tablet 07-07 00:00: 00 Yes [id number] 1{tbl} Take 1 tablet by mouth in the morning. [facility] norgestimat e-ethinyl estradioL (ORTHO TRI-CYCLEN, 28,) 0.18/0.215/ 0.25 mg-35 mcg (28) tablet 07-07 00:00: 00 02-28 00:00 :00 No [id number] 1{tbl} Take 1 tablet by mouth in the morning. [facility] norgestimat e-ethinyl estradioL (ORTHO TRI-CYCLEN, 28,) 0.18/0.215/ 0.25 mg-35 mcg (28) tablet 07-07 00:00: 00 02-28 00:00 :00 No [id number] 1{tbl} Take 1 tablet by mouth in the morning. [facility] norgestimat e-ethinyl estradioL (ORTHO TRI-CYCLEN, 28,) 0.18/0.215/ 0.25 mg-35 mcg (28) tablet 07-07 00:00: 00 02-28 00:00 :00 No [id number] 1{tbl} Take 1 tablet by mouth in the morning. [facility] Nitrofurant oin&Nit. Macrocryst (MACROBID) 100 mg capsule 04-03 00:00: 00 Yes [id number] 100mg Take 1 capsule by mouth 2 (two) times daily. [facility] Nitrofurant oin&Nit. Macrocryst (MACROBID) 100 mg capsule 04-03 00:00: 00 Yes [id number] 100mg Take 1 capsule by mouth 2 (two) times daily. [facility] Nitrofurant oin&Nit. Macrocryst (MACROBID) 100 mg capsule 04-03 00:00: 00 Yes [id number] 100mg Take 1 capsule by mouth 2 (two) times daily. [facility] Nitrofurant oin&Nit. Macrocryst (MACROBID) 100 mg capsule 04-03 00:00: 00 02-28 00:00 :00 No [id number] 100mg Take 1 capsule by mouth 2 (two) times daily. [facility] Nitrofurant oin&Nit. Macrocryst (MACROBID) 100 mg capsule 04-03 00:00: 00 02-28 00:00 :00 No [id number] 100mg Take 1 capsule by mouth 2 (two) times daily. [facility] Nitrofurant oin&Nit. Macrocryst (MACROBID) 100 mg capsule 04-03 00:00: 02-28 00:00 :00 No [id number] 100mg Take 1 capsule by mouth 2 (two) times daily. [facility] PN 67-iron ps-folate no.1-dha (VITAFOL ULTRA) 29 mg iron- 1 mg-200 mg Cap 03-22 00:00: 00 10-28 00:00 :00 No [id number] 1{each} Take 1 Each by mouth daily. [facility] PNV 67-iron ps-folate no.1-dha (VITAFOL ULTRA) 29 mg iron- 1 mg-200 mg Cap 03-22 00:00: 00 10-28 00:00 :00 No [id number] 1{each} Take 1 Each by mouth daily. [facility] PNV 67-iron ps-folate no.1-dha (VITAFOL ULTRA) 29 mg iron- 1 mg-200 mg Cap 03-22 00:00: 00 10-28 00:00 :00 No [id number] 1{each} Take 1 Each by mouth daily. [facility] PNV 67-iron ps-folate no.1-dha (VITAFOL ULTRA) 29 mg iron- 1 mg-200 mg Cap 03-22 00:00: 00 10-28 00:00 :00 No [id number] 1{each} Take 1 Each by mouth daily. [facility] norgestimat e-ethinyl estradioL 0.18/0.215/ 0.25 mg-25 mcg tablet 02-23 00:00: 00 10-28 00:00 :00 No [id number] 1{tbl} Take 1 tablet by mouth daily. [facility] norgestimat e-ethinyl estradioL 0.18/0.215/ 0.25 mg-25 mcg tablet 02-23 00:00: 00 10-28 00:00 :00 No [id number] 1{tbl} Take 1 tablet by mouth daily. [facility] norgestimat e-ethinyl estradioL 0.18/0.215/ 0.25 mg-25 mcg tablet 02-23 00:00: 00 10-28 00:00 :00 No [id number] 1{tbl} Take 1 tablet by mouth daily. [facility] norgestimat e-ethinyl estradioL 0.18/0.215/ 0.25 mg-25 mcg tablet 02-23 00:00: 00 10-28 00:00 :00 No [id number] 1{tbl} Take 1 tablet by mouth daily. [facility] metronidazo le 500 mg tablet Take 1 tablet twice a day by oral route for 7 days. metronidazo le 500 mg tablet Take 1 tablet twice a day by oral route for 7 days. No 1 BID metronidaz ole 500 mg tablet Take 1 tablet twice a day by oral route for 7 days. [facility] Provera 10 mg tablet Take 1 tablet every day by oral route for 10 days. Provera 10 mg tablet Take 1 tablet every day by oral route for 10 days. No 1 Q1D Provera 10 mg tablet Take 1 tablet every day by oral route for 10 days. [facility] medroxyprog esterone 10 mg tablet TAKE 1 TABLET BY MOUTH EVERY DAY FOR 10 DAYS medroxyprog esterone 10 mg tablet TAKE 1 TABLET BY MOUTH EVERY DAY FOR 10 DAYS No medroxypro gesterone 10 mg tablet TAKE 1 TABLET BY MOUTH EVERY DAY FOR 10 DAYS [facility] clomiphene citrate 50 mg tablet Take [...] for 5 days. Clomid on cycle day 5-9 [facility] medroxyprog esterone 10 mg tablet TAKE 1 TABLET BY MOUTH EVERY DAY FOR 10 DAYS medroxyprog esterone 10 mg tablet TAKE 1 TABLET BY MOUTH EVERY DAY FOR 10 DAYS No medroxypro gesterone 10 mg tablet TAKE 1 TABLET BY MOUTH EVERY DAY FOR 10 DAYS [facility] Clomid 50 mg tablet TAKE 1 TABLET BY MOUTH ONCE DAILY FOR 5 DAYS Clomid 50 mg tablet TAKE 1 TABLET BY MOUTH ONCE DAILY FOR 5 DAYS No Clomid 50 mg tablet TAKE 1 TABLET BY MOUTH ONCE DAILY FOR 5 DAYS [facility] medroxyprog esterone 10 mg tablet TAKE 1 TABLET BY MOUTH EVERY DAY FOR 10 DAYS medroxyprog esterone 10 mg tablet TAKE 1 TABLET BY MOUTH EVERY DAY FOR 10 DAYS No medroxypro gesterone 10 mg tablet TAKE 1 TABLET BY MOUTH EVERY DAY FOR 10 DAYS [facility] Immunizations Ordered Immunization Name Filled Immunization Name Date Status Comments Source HPV9 2019-09-10 00:00:00 Completed [facility] HPV9 2019-09-10 00:00:00 Completed [facility] HPV9 2019-09-10 00:00:00 Completed [facility] HPV9 2019-09-10 00:00:00 Completed [facility] HPV9 2019-09-10 00:00:00 Completed [facility] HPV9 2019-09-10 00:00:00 Completed [facility] HPV9 2019-09-10 00:00:00 Completed [facility] HPV9 2019-09-10 00:00:00 Completed [facility] HPV9 2019-09-10 00:00:00 Completed [facility] HPV9 2019-06-17 00:00:00 Completed [facility] HPV9 2019-06-17 00:00:00 Completed [facility] HPV9 2019-06-17 00:00:00 Completed [facility] HPV9 2019-06-17 00:00:00 Completed [facility] HPV9 2019-06-17 00:00:00 Completed [facility] HPV9 2019-06-17 00:00:00 Completed [facility] HPV9 2019-06-17 00:00:00 Completed [facility] HPV9 2019-06-17 00:00:00 Completed [facility] HPV9 2019-06-17 00:00:00 Completed [facility] Influenza Virus Vaccine Quad IM 3+ YRS 2016-09-06 00:00:00 Completed [facility] Influenza Virus Vaccine Quad IM 3+ YRS 2016-09-06 00:00:00 Completed [facility] Influenza Virus Vaccine Quad IM 3+ YRS 2016-09-06 00:00:00 Completed [facility] Influenza Virus Vaccine Quad IM 3+ YRS 2016-09-06 00:00:00 Completed [facility] Influenza Virus Vaccine Quad IM 3+ YRS 2016-09-06 00:00:00 Completed [facility] Influenza Virus Vaccine Quad IM 3+ YRS 2016-09-06 00:00:00 Completed [facility] Influenza Virus Vaccine Quad IM 3+ YRS 2016-09-06 00:00:00 Completed [facility] Influenza Virus Vaccine Quad IM 3+ YRS 2016-09-06 00:00:00 Completed [facility] Influenza Virus Vaccine Quad IM 3+ YRS 2016-09-06 00:00:00 Completed [facility] TDAP 2009-10-22 00:00:00 Completed [facility] TDAP 2009-10-22 00:00:00 Completed [facility] TDAP 2009-10-22 00:00:00 Completed [facility] TDAP 2009-10-22 00:00:00 Completed [facility] TDAP 2009-10-22 00:00:00 Completed [facility] TDAP 2009-10-22 00:00:00 Completed [facility] TDAP 2009-10-22 00:00:00 Completed [facility] TDAP 2009-10-22 00:00:00 Completed [facility] TDAP 2009-10-22 00:00:00 Completed [facility] HPV9 Unknown Completed [facility] TDAP Unknown Completed [facility] Influenza Virus Vaccine Quad IM 3+ YRS Unknown Completed [facility] HPV9 Unknown Completed [facility] HPV9 Unknown Completed [facility] TDAP Unknown Completed [facility] Influenza Virus Vaccine Quad IM 3+ YRS Unknown Completed [facility] HPV9 Unknown Completed [facility] HPV9 Unknown Completed [facility] TDAP Unknown Completed [facility] Influenza Virus Vaccine Quad IM 3+ YRS Unknown Completed [facility] HPV9 Unknown Completed [facility] HPV9 Unknown Completed [facility] TDAP Unknown Completed [facility] Influenza Virus Vaccine Quad IM 3+ YRS Unknown Completed [facility] HPV9 Unknown Completed [facility] HPV9 Unknown Completed [facility] TDAP Unknown Completed [facility] Influenza Virus Vaccine Quad IM 3+ YRS Unknown Completed [facility] HPV9 Unknown Completed [facility] HPV9 Unknown Completed [facility] TDAP Unknown Completed [facility] Influenza Virus Vaccine Quad IM 3+ YRS Unknown Completed [facility] HPV9 Unknown Completed [facility] HPV9 Unknown Completed [facility] TDAP Unknown Completed [facility] Influenza Virus Vaccine Quad IM 3+ YRS Unknown Completed [facility] HPV9 Unknown Completed [facility] HPV9 Unknown Completed [facility] TDAP Unknown Completed [facility] Influenza Virus Vaccine Quad IM 3+ YRS Unknown Completed [facility] HPV9 Unknown Completed [facility] HPV9 Unknown Completed [facility] TDAP Unknown Completed [facility] Influenza Virus Vaccine Quad IM 3+ YRS Unknown Completed [facility] HPV9 Unknown Completed [facility] HPV9 Unknown Completed [facility] TDAP Unknown Completed [facility] Influenza Virus Vaccine Quad IM 3+ YRS Unknown Completed [facility] HPV9 Unknown Completed [facility] HPV9 Unknown Completed [facility] TDAP Unknown Completed [facility] Influenza Virus Vaccine Quad IM 3+ YRS Unknown Completed [facility] HPV9 Unknown Completed [facility] HPV9 Unknown Completed [facility] TDAP Unknown Completed [facility] Influenza Virus Vaccine Quad IM 3+ YRS Unknown Completed [facility] HPV9 Unknown Completed [facility] HPV9 Unknown Completed [facility] TDAP Unknown Completed [facility] Influenza Virus Vaccine Quad IM 3+ YRS Unknown Completed [facility] HPV9 Unknown Completed [facility] HPV9 Unknown Completed [facility] TDAP Unknown Completed [facility] Influenza Virus Vaccine Quad IM 3+ YRS Unknown Completed [facility] HPV9 Unknown Completed [facility] HPV9 Unknown Completed [facility] TDAP Unknown Completed [facility] Influenza Virus Vaccine Quad IM 3+ YRS Unknown Completed [facility] HPV9 Unknown Completed [facility] HPV9 Unknown Completed [facility] TDAP Unknown Completed [facility] Influenza Virus Vaccine Quad IM 3+ YRS Unknown Completed [facility] HPV9 Unknown Completed [facility] HPV9 Unknown Completed [facility] TDAP Unknown Completed [facility] Influenza Virus Vaccine Quad IM 3+ YRS Unknown Completed [facility] HPV9 Unknown Completed [facility] Vital Signs Vital Name Observation Time Observation Value Comments S ource Systolic blood pressure 2024-01-11 16:12:00 116 mm[Hg] [facility] Diastolic blood pressure 2024-01-11 16:12:00 79 mm[Hg] [facility] Heart rate 2024-01-11 16:12:00 85 /min [facility] Body temperature 2024-01-11 16:12:00 36.61 Shel[facility] Respiratory rate 2024-01-11 16:12:00 18 /min [facility] Body height 2024-01-11 16:12:00 154.9 cm [facility] Body weight 2024-01-11 16:12:00 71.532 kg [facility] BMI 2024-01-11 16:12:00 29.80 kg/m2 [facility] Oxygen saturation in Arterial blood by Pulse oximetry 2024-01-11 16:12:00 99 /min [facility] Systolic blood pressure 2023-10-24 19:18:00 119 mm[Hg] [facility] Diastolic blood pressure 2023-10-24 19:18:00 75 mm[Hg] [facility] Heart rate 2023-10-24 19:18:00 98 /min [facility] Body temperature 2023-10-24 19:18:00 37.17 Shel[facility] Respiratory rate 2023-10-24 19:18:00 16 /min [facility] Body weight 2023-10-24 19:18:00 70.308 kg [facility] BMI 2023-10-24 19:18:00 31.31 kg/m2 [facility] Oxygen saturation in Arterial blood by Pulse oximetry 2023-10-24 19:18:00 97 /min [facility] Systolic blood pressure 2023-02-28 13:12:00 123 mm[Hg] [facility] Diastolic blood pressure 2023-02-28 13:12:00 88 mm[Hg] [facility] Heart rate 2023-02-28 13:12:00 91 /min [facility] Body temperature 2023-02-28 13:12:00 36.83 Shel[facility] Respiratory rate 2023-02-28 13:12:00 18 /min [facility] Body height 2023-02-28 13:12:00 149.9 cm [facility] Body weight 2023-02-28 13:12:00 66.395 kg [facility] BMI 2023-02-28 13:12:00 29.56 kg/m2 [facility] BP Diastolic 2022-11-02 00:00:00 72 mm[Hg] [facility] Height 2022-11-02 00:00:00 64 [in_i] [facility] BMI (Body Mass Index) 2022-11-02 00:00:00 25 kg/m2 [facility] BP Systolic 2022-11-02 00:00:00 108 mm[Hg] [facility] Body Weight 2022-11-02 00:00:00 145.4 [lb_av] [facility] BP Diastolic 2022-10-12 00:00:00 83 mm[Hg] [facility] Height 2022-10-12 00:00:00 64 [in_i] [facility] BMI (Body Mass Index) 2022-10-12 00:00:00 24.6 kg/m2 [facility] BP Systolic 2022-10-12 00:00:00 114 mm[Hg] [facility] Body Weight 2022-10-12 00:00:00 143.3 [lb_av] [facility] BP Diastolic 2022-09-12 00:00:00 79 mm[Hg] [facility] Height 2022-09-12 00:00:00 64 [in_i] [facility] BMI (Body Mass Index) 2022-09-12 00:00:00 25.6 kg/m2 [facility] BP Systolic 2022-09-12 00:00:00 119 mm[Hg] [facility] Body Weight 2022-09-12 00:00:00 148.9 [lb_av] [facility] Systolic blood pressure 2022-07-07 20:00:00 107 mm[Hg] [place] [facility] Diastolic blood pressure 2022-07-07 20:00:00 67 mm[Hg] [place] [facility] Heart rate 2022-07-07 20:00:00 74 /min [facility] Body temperature 2022-07-07 20:00:00 36.44 Shel[facility] Respiratory rate 2022-07-07 20:00:00 18 /min [facility] Body height 2022-07-07 20:00:00 149.9 cm [facility] Body weight 2022-07-07 20:00:00 64.921 kg [facility] BMI 2022-07-07 20:00:00 28.91 kg/m2 [facility] Procedures Procedure Date / Time Performed Performing Clinician Source POCT URINALYSIS 2024-01-11 00:00:00 Liudmila James [facility] POCT TEST 2024-01-11 00:00:00 Gwendolyn James y [facility] POCT TEST 2023-10-24 19:23:00 Gwendolyn James y [facility] GALV ONLY - VAGINAL PATHOGENS BY NUCLEIC ACID TESTING 2023-10-24 19:20:00 Liudmila James [facility] POCT URINALYSIS 2023-10-24 19:19:00 Liudmila James [facility] ASSIGNMENT OF BENEFITS 2023-10-24 19:09:13 Docto r Unassigned, [place] [facility] CBC WITH DIFF 2023-02-28 13:55:00 Ena Dalton [facility] GLYCOSYLATED HEMOGLOBIN (A1C) 2023-02-28 13:55:00 Ena Dalton [facility] HCV ANTIBODY 2023-02-28 13:55:00 Ena Dalton [facility] GC & CHLAMYDIA AMPLIFIED ASSAY 2023-02-28 13:55:00 Ena Dalton [facility] GALV ONLY - VAGINAL PATHOGENS BY NUCLEIC ACID TESTING 2023-02-28 13:55:00 Ena [facility] HIV 1/2 AG-AB WITH REFLEX 2023-02-28 13:55:00 Ena [facility] SYPHILIS IGG/IGM 2023-02-28 13:55:00 Ena [facility] ASSIGNMENT OF BENEFITS 2023-02-28 12:47:02 Docto r Unassigned, [place] [facility], transvaginal 2022-11-16 00:00:00 [facility] REFERRAL- REQUEST/RESPONSE 2022-10-14 06:01:00 Doctor Unassigned, [facility], transvaginal 2022-09-12 00:00:00 [facility] POCT TEST 2022-07-07 20:02:00 Meet [facility] Plan of Care Planned Activity Planned Date Details Comments Source Diagnostic Test Pending 2022-11-02 00:00:00 genetic screen, unspecified specimen [code = genetic screen, unspecified specimen] [facility] Diagnostic Test Pending 2022-11-02 00:00:00 lupus anticoagulant, plasma [code = lupus anticoagulant, plasma] [facility] Diagnostic Test Pending 2022-11-02 00:00:00 anticardiolipin igg+igm Ab, serum [code = anticardiolipin igg+igm Ab, serum] [facility] Diagnostic Test Pending 2022-11-02 00:00:00 beta-2 glycoprotein 1 igg+igm Ab, serum [code = beta-2 glycoprotein 1 igg+igm Ab, serum] [facility] Instructions [facility] dical Group Encounters Start Date/Time End Date/Time Encounter Type Admission Type Attending Clinicians Care Facility Care Department Encounter ID Source 2022-10-12 10:36:13 Outpatient [facility] [id number] [facility] 2024-01-16 00:00:00 2024-01-16 00:00:00 Outpatient White_M MMG MMG [id number] [facility] 2024-01-11 14:00:00 2024-01-11 14:00:00 Outpatient R UNKNOWN, ATTENDING [facility] [id number] [facility] 2024-01-11 11:00:00 2024-01-11 11:20:14 Outpatient R LIUDMILA JAMES [facility] [id number] [facility] 2024-01-11 11:00:00 2024-01-11 11:20:14 Urgent Care Liudmila James Unknown, Attending [facility] MEDICAL OFFICE BUILDING 1.2.840.114 350.1.13.10 4.2.7.2.686 [id number] [facility] 2023-10-24 13:00:00 2023-10-24 13:27:23 Outpatient R JACOB LIUDMILA [facility] [id number] [facility] 2023-10-24 13:00:00 2023-10-24 13:27:23 Urgent Care Liudmila James Unknown, Attending [facility] MEDICAL OFFICE BUILDING 1.2.840.114 350.1.13.10 4.2.7.2.686 [id number] [facility] 2023-10-24 00:00:00 2023-10-24 00:00:00 Orders Only Doctor Unassigned, [place] [facility] 1..840.114 350.1.13.10 4.2.7.2.686 [id number] [facility] 2023-04-23 13:15:00 2023-04-23 13:15:00 Outpatient R DAI HICKS [facility] [id number] [facility] 2023-04-02 14:30:00 2023-04-02 14:30:00 Outpatient R IVY MONTEJO [facility] [id number] [facility] 2023-03-31 00:00:00 2023-03-31 00:00:00 Patient Secure Msg Staci Ena Dante [facility] [employer] [facility] [[email or web address]] 1.2.840.114 350.1.13.10 4.2.7.2.686 [id number] [facility] 2023-03-02 00:00:00 2023-03-02 00:00:00 Patient Secure Msg Juan Manuelyuliana Ena Dante [facility] [employer] SALES CONSULTANT [facility] [[email or web address]] 1.2.840.114 350.1.13.10 4.2.7.2.686 [id number] [facility] 2023-03-02 00:00:00 2023-03-02 00:00:00 Case Management Juan Manuelyuliana Ena Howell [facility] [employer] SALES CONSULTANT [facility] [[email or web address]] 1.2.840.114 350.1.13.10 4.2.7.2.686 [id number] [facility] 2023-03-02 00:00:00 2023-03-02 00:00:00 Telephone Dai Hicks [facility] [employer] SALES CONSULTANT [facility] [[email or web address]] 1.2.840.114 350.1.13.10 4.2.7.2.686 [id number] [facility] 2023-02-28 07:45:00 2023-02-28 08:57:53 Outpatient R ENA DALTON [facility] [id number] [facility] 2023-02-28 07:45:00 2023-02-28 08:57:53 Office Visit Ena Dalton [facility] [employer] SALES CONSULTANT [facility] [[email or web address]] 1.2.840.114 350.1.13.10 4.2.7.2.686 [id number] [facility] 2023-02-28 00:00:00 2023-02-28 00:00:00 Orders Only Doctor Unassigned, [place] [facility] 1..840.114 350.1.13.10 4.2.7.2.686 [id number] [facility] 2023-01-30 14:45:00 2023-01-30 14:45:00 Outpatient Kinsey CESARENA HALE [facility] [id number] [facility] 2022-12-19 14:30:00 2022-12-19 14:30:00 Outpatient VELIA BAINS [facility] [id number] [facility] 2022-11-16 00:00:00 2022-11-16 00:00:00 Outpatient White_M MMG MMG [id number] [facility] 2022-11-16 00:00:00 2022-11-16 00:00:00 BISHOP Gray-BC: [address] [address] , Ph. [phone] [facility] [id number] [facility] 2022-11-02 15:26:00 2022-11-02 15:26:00 Outpatient JANE [facility] [id number] [facility] 2022-11-02 00:00:00 2022-11-02 00:00:00 TK GrayBC: [address] [address] , Ph. [phone] [facility]YN [id number] [facility] 2022-10-14 00:00:00 2022-10-14 00:00:00 Orders Only Doctor Unassigned, [place] [facility] 1.2.840.114 350.1.13.10 4.2.7.2.686 [id number] [facility] 2022-10-12 00:00:00 2022-10-12 00:00:00 Outpatient White_M MMG MMG [id number] [facility] 2022-10-12 00:00:00 2022-10-12 00:00:00 Outpatient White_M MMG MMG [id number] [facility] 2022-10-12 00:00:00 2022-10-12 00:00:00 Jane TitusSKYLARP-BC: [address] [facility] [address] [address] , Ph. [phone] [facility]YN [id number] [facility] 2022-10-06 09:00:00 2022-10-06 09:00:00 Outpatient DAI BAKER [facility] [id number] [facility] 2022-09-12 15:04:00 2022-09-12 15:04:00 Outpatient JANE [facility] [id number] [facility] 2022-09-12 00:00:00 2022-09-12 00:00:00 Outpatient White_M MMG [facility] [id number] [facility] 2022-09-12 00:00:00 2022-09-12 00:00:00 Jane TitusSKYLARP-: 600 [facility] [address], [place] [address] , Ph. [phone] [facility] [id number] [facility] 2022-07-07 14:45:00 2022-07-07 15:27:14 Office Visit Dai Hicks [facility] [employer] CONSULTANT [facility] 1.2.840.114 350.1.13.10 4.2.7.2.686 [id number] [facility] 2022-07-07 14:45:00 2022-07-07 15:27:14 Outpatient DAI BAKER [facility] [id number] [facility] 2022-07-07 14:45:00 2022-07-07 14:45:00 Outpatient R DAI HICKS [facility] [id number] [facility] 2022-07-07 08:15:00 2022-07-07 08:15:00 Outpatient R RICHARD AMAYA [facility] [id number] [facility] 2022-06-27 00:00:00 2022-06-27 00:00:00 Patient Secure Msg Dai Hicks [facility] [employer] CONSULTANT [facility] [[email or web address]] 1.2.840.114 350.1.13.10 4.2.7.2.686 [id number] [facility] 2022-06-21 10:30:00 2022-06-21 11:49:35 Office Visit Dai Hicks [facility] [employer] SALES CONSULTANT [facility] [[email or web address]] 1..840.114 350.1.13.10 4.2.7.2.686 [id number] [facility] 2022-06-21 10:30:00 2022-06-21 11:49:35 Outpatient R DAI HICKS [facility] [id number] [facility] 2022-06-21 10:30:00 2022-06-21 10:30:00 Outpatient R DAI HICKS [facility] [id number] [facility] 2022-06-19 10:15:00 2022-06-19 10:15:00 Outpatient R DAI HICKS [facility] [id number] [facility] 2022-06-16 14:00:00 2022-06-16 14:00:00 Outpatient R DAI HICKS [facility] [id number] [facility] 2022-06-16 00:00:00 2022-06-16 00:00:00 Telephone Dai Hicks [facility] [employer] SALES CONSULTANT [facility] [[email or web address]] 1..840.114 350.1.13.10 4.2.7.2.686 [id number] [facility] 2022-04-25 08:15:00 2022-04-25 08:15:00 Outpatient R DAI HCIKS [facility] [id number] [facility] 2022-04-18 14:15:00 2022-04-18 14:15:00 Outpatient R JERRYYASMEENALFREDITODAI [facility] [id number] [facility] 2022-04-14 00:00:00 2022-04-14 00:00:00 Telephone Jerryyasmeenalfredito Dai Henderson [facility] [employer] SALES CONSULTANT [facility] [[email or web address]] 1.2.840.114 350.1.13.10 4.2.7.2.686 [id number] [facility] 2022-04-14 00:00:00 2022-04-14 00:00:00 Patient Secure Msg Dai Hicks [facility] [employer]ES CONSULTANT [facility] [[email or web address]] 1.2.840.114 350.1.13.10 4.2.7.2.686 [id number] [facility] 2022-04-04 00:00:00 2022-04-04 00:00:00 Patient Secure Msg Dai Hicks [facility] [employer] SALES CONSULTANT [facility] [[email or web address]] 1.2.840.114 350.1.13.10 4.2.7.2.686 [id number] [facility] 2022-04-03 00:00:00 2022-04-03 00:00:00 Patient Secure Msg Dai Hicks [facility] [employer] SALES CONSULTANT [facility] [[email or web address]] 1.2.840.114 350.1.13.10 4.2.7.2.686 [id number] [facility] 2022-04-03 00:00:00 2022-04-03 00:00:00 Telephone Dai Hicks [facility] [employer] SALES CONSULTANT [facility] [[email or web address]] 1..840.114 350.1.13.10 4.2.7.2.686 [id number] [facility] 2022-03-31 16:00:00 2022-03-31 16:29:52 Outpatient R DAI HICKS [facility] [id number] [facility] 2022-03-31 16:00:00 2022-03-31 16:29:52 Office Visit Kurt Dai Henderson [facility] [employer] SALES CONSULTANT [facility] [[email or web address]] 1.2.840.114 350.1.13.10 4.2.7.2.686 [id number] [facility] 2022-03-31 00:00:00 2022-03-31 00:00:00 Orders Only Doctor Unassigned, [place] [facility] 1.2.840.114 350.1.13.10 4.2.7.2.686 [id number] [facility] 2022-01-30 13:00:00 2022-01-30 13:00:00 Outpatient R KARLA BURRELL [facility] [id number] [facility] 2021-11-12 00:00:00 2021-11-12 00:00:00 Patient Secure Msg Doctor Unassigned, [place] [facility] 1..840.114 350.1.13.10 4.2.7.2.686 [id number] [facility] 2021-11-11 14:00:00 2021-11-11 14:00:00 Outpatient R DAI HICKS [facility] [id number] [facility] 2021-11-11 14:00:00 2021-11-11 14:00:00 Outpatient R DAI HICKS [facility] [id number] [facility] 2021-10-28 13:45:00 2021-10-28 14:59:43 Outpatient R SILVINOALFREDITODAI [facility] [id number] [facility] 2021-10-28 13:45:00 2021-10-28 14:59:43 Office Visit JerryyasmeenalfreditoJeromeDai C [facility] [employer] SALES CONSULTANT [facility] [[email or web address]] 1.2.840.114 350.1.13.10 4.2.7.2.686 [id number] [facility] 2021-05-25 00:00:00 2021-05-25 00:00:00 Telephone SilvinoalfreditoDai Beatriz [facility] [employer] SALES CONSULTANT [facility] 1..840.114 350.1.13.10 4.2.7.2.686 [id number] [facility] 2021-05-24 15:15:00 2021-05-24 15:15:00 Outpatient R JERRYDAI MCKEON [facility] [id number] [facility] 2021-05-11 16:00:00 2021-05-11 16:00:00 Outpatient R SILVINOALFREDITO DAI [facility] [id number] [facility] 2021-04-26 00:00:00 2021-04-26 00:00:00 Telephone SilvinoalfreditoDai Beatriz [facility] [employer] SALES CONSULTANT [facility] 1..840.114 350.1.13.10 4.2.7.2.686 [id number] [facility] 2021-04-14 13:45:00 2021-04-14 13:45:00 Outpatient P [facility] [id number] [facility] 2021-04-05 15:45:00 2021-04-05 15:45:00 Outpatient R JERRYLINDA DAI [facility] [id number] [facility] 2021-04-04 00:00:00 2021-04-04 00:00:00 Patient Secure Msg Doctor Unassigned, [place] [facility] LIBR[employer] SALES CONSULTANT [facility] [[email or web address]] 1.840.114 350.1.13.10 4.2.7.2.686 [id number] [facility] 2021-03-30 00:00:00 2021-03-30 00:00:00 Patient Secure Msg Doctor Unassigned, [place] [facility] 1.2840.114 350.1.13.10 4.2.7.2.686 [id number] [facility] 2021-03-25 00:00:00 2021-03-25 00:00:00 Telephone Dai Hicks [facility] [employer] SALES CONSULTANT [facility] 1.840.114 350.1.13.10 4.2.7.2.686 [id number] [facility] 2021-03-25 00:00:00 2021-03-25 00:00:00 Telephone Dai Hicks [facility] LIBRARY SALES CONSULTANT [facility] [[email or web address]] 1.0.114 350.1.13.10 4.2.7.2.686 [id number] 2021-03-24 10:30:23 2021-03-24 10:47:41 Wearing Apparel Shaker Visit Lab, [facility] Miranda Varela [facility] [employer] SALES CONSULTANT [facility] [[email or web address]] 1.0.114 350.1.13.10 4.2.7.2.686 [id number] [facility] 2021-03-24 10:30:00 2021-03-24 10:30:00 Outpatient R [facility] [id number] [facility] 2021-03-24 00:00:00 2021-03-24 00:00:00 Patient Secure Msg Doctor Unassigned, [place] [facility] 1.20.114 350.1.13.10 4.2.7.2.686 [id number] [facility] 2021-03-24 00:00:00 2021-03-24 00:00:00 Telephone Dai Hicks [facility] LIBRARY SALES CONSULTANT [facility] [[email or web address]] 1.2.840.114 350.1.13.10 4.2.7.2.686 [id number] [facility] 2021-03-23 00:00:00 2021-03-23 00:00:00 Patient Secure Msg Richard Amaya [facility] LIBRARY SALES CONSULTANT [facility] [[email or web address]] 1.2.840.114 350.1.13.10 4.2.7.2.686 [id number] [facility] 2021-03-22 15:10:35 2021-03-22 15:25:35 Initial Visit Dai Hicks [facility] 1.2.840.114 350.1.13.10 4.2.7.2.686 [id number] [facility] 2021-03-22 15:00:00 2021-03-22 15:00:00 Outpatient R DAI HICKS [facility] [id number] [facility] 2021-03-22 00:00:00 2021-03-22 00:00:00 Orders Only Doctor Unassigned, [place] [facility] 1.2.840.114 350.1.13.10 4.2.7.2.686 [id number] [facility] 2021-02-23 13:08:12 2021-02-23 13:35:01 Office Visit Richard Amaya [facility] LIBRARY SALES CONSULTANT [facility] 1.2.840.114 350.1.13.10 4.2.7.2.686 [id number] [facility] 2021-02-23 13:00:00 2021-02-23 13:00:00 Outpatient R RICHARD AMAYA [facility] [id number] [facility] 2021-02-16 09:30:00 2021-02-16 09:30:00 Outpatient R [facility] [id number] [facility] 2021-02-16 09:30:00 2021-02-16 09:30:00 Outpatient R RICHARD AMAYA [facility] [id number] [facility] 2021-02-14 00:00:00 2021-02-14 00:00:00 Patient Secure Msg Doctor Unassigned, [place] [facility] LIBR[employer] SALES CONSULTANT [facility] [[email or web address]] 1.840.114 350.1.13.10 4.2.7.2.686 [id number] [facility] 2021-02-14 00:00:00 2021-02-14 00:00:00 Patient Secure Msg Doctor Unassigned, [place] [facility] 1.84.114 350.1.13.10 4.2.7.2.686 [id number] [facility] 2021-02-02 10:05:24 2021-02-02 11:11:24 Routine Visit Richard Amaya [facility] 1.840.114 350.1.13.10 4.2.7.2.686 [id number] [facility] 2021-02-02 10:00:00 2021-02-02 10:00:00 Outpatient R RICHARD AMAYA [facility] [id number] [facility] 2021-02-02 00:00:00 2021-02-02 00:00:00 Orders Only Doctor Unassigned, [place] [facility] 1.84.114 350.1.13.10 4.2.7.2.686 [id number] [facility] 2021-02-01 14:45:00 2021-02-01 14:45:00 Outpatient Kinsey AMAYA TANYADante [facility] [id number] [facility] 2021-01-31 13:45:00 2021-01-31 13:45:00 Outpatient Kinsey AMAYA RICHARD [facility] [id number] [facility] 2021-01-11 00:00:00 2021-01-11 00:00:00 Patient Outreach Pardeep Amaro [facility] 1..840.114 350.1.13.10 4.2.7.2.686 [id number] [facility] 2021-01-10 14:26:11 2021-01-10 15:14:43 Initial Visit Amaya, Richard Euceda [facility] [employer] SALES CONSULTANT [facility] 1..840.114 350.1.13.10 4.2.7.2.686 [id number] [facility] 2021-01-10 14:00:00 2021-01-10 14:00:00 Outpatient Kinsey AMAYA RICHARD [facility] [id number] [facility] 2021-01-10 00:00:00 2021-01-10 00:00:00 Orders Only Doctor Unassigned, [place] [facility] 1..840.114 350.1.13.10 4.2.7.2.686 [id number] [facility] 2021-01-03 14:00:00 2021-01-03 14:00:00 Outpatient R [facility] [id number] [facility] 2021-01-03 12:45:00 2021-01-03 12:45:00 Outpatient Kinsey AMAYAJACYJAYA [facility] [id number] [facility] 2020-12-28 13:15:00 2020-12-28 13:15:00 Outpatient Kinsey AMAYARICHARD [facility] [id number] [facility] 2020-11-29 00:00:00 2020-11-29 00:00:00 Telephone Richard Amaya [facility] LIBR[employer] SALES CONSULTANT [facility] [[email or web address]] 1.2.840.114 350.1.13.10 4.2.7.2.686 [id number] [facility] 2020-11-24 14:45:48 2020-11-24 15:26:28 Office Visit AmayaRichard [facility] [employer] SALES CONSULTANT [email or web address]] 1.2.840.114 350.1.13.10 4.2.7.2.686 [id number] [facility] 2020-11-24 14:45:00 2020-11-24 14:45:00 Outpatient RICHARD GRAVES [facility] [id number] [facility] 2020-11-24 00:00:00 2020-11-24 00:00:00 Orders Only Doctor Unassigned, [place] [facility] 1.840.114 350.1.13.10 4.2.7.2.686 [id number] [facility] 2020-09-14 13:30:00 2020-09-14 13:30:00 Outpatient RICHARD GRAVES [facility] [id number] [facility] 2020-09-13 00:00:00 2020-09-13 00:00:[address] [facility] LIBRARY SALES CONSULTANT [facility] [[email or web address] 1..840.114 350.1.13.10 4.2.7.2.686 [id number] [facility] 2020-09-09 15:00:00 2020-09-09 15:00:00 Outpatient RICHARD GRAVES [facility] [id number] [facility] 2020-09-01 12:45:00 2020-09-01 12:45:00 Outpatient R AMAYA, JACYROSA [facility] [id number] [facility] 2020-09-01 12:45:00 2020-09-01 12:45:00 Outpatient R AMAYA, RICHARD [facility] [id number] [facility] 2020-07-29 09:45:00 2020-07-29 09:45:00 Outpatient R DAI HICKS [facility] [id number] [facility] 2020-07-29 09:45:00 2020-07-29 09:45:00 Outpatient R DAI HICKS [facility] [id number] [facility] 2020-06-08 10:45:00 2020-06-08 10:45:00 Outpatient R DAI HICKS [facility] [id number] [facility] 2020-06-08 10:45:00 2020-06-08 10:45:00 Outpatient R DAI HICKS [facility] [id number] [facility] 2020-04-13 11:00:57 2020-04-13 11:44:15 Office Visit Richard Amaya [facility] [employer] [facility] [id number] [facility] 2020-04-13 11:00:00 2020-04-13 11:00:00 Outpatient R RICHARD AMAYA [facility] [id number] [facility] 2020-04-13 09:45:00 2020-04-13 09:45:00 Outpatient R MIRANDA VARELA [facility] [id number] [facility] 2020-03-09 10:30:00 2020-03-09 10:30:00 Outpatient R RICHARD AMAYA [facility] [id number] [facility] 2020-03-04 00:00:00 2020-03-04 00:00:00 Telephone Miranda Varela [facility] [employer] [facility] [id number] [id number] [facility] 2020-01-12 15:30:00 2020-01-12 15:30:00 Outpatient R MIRANDA VARELA [facility] [id number] [facility] 2020-01-07 00:00:00 2020-01-07 00:00:00 Patient Secure Msg Doctor Unassigned, [place] [facility] [employer] [email or web address] [id number] [facility] 2020-01-05 13:19:07 2020-01-05 14:07:46 Office Visit Dai Hicks [facility] [id number] [facility] 2020-01-05 13:15:00 2020-01-05 13:15:00 Outpatient R DAI HICKS [facility] [id number] [facility] 2019-12-12 08:00:00 2019-12-12 08:00:00 Outpatient R RICHARD AMAYA [facility] [id number] [facility] 2019-12-11 00:00:00 2019-12-11 00:00:00 Patient Secure Miranda Tenorio N [email or web address] 1..114 350.1.13.10 4.2.7.2.686 [id number] [facility] 2019-12-08 11:15:24 2019-12-08 11:43:05 Office Visit Richard Amaya [facility] LIBRARY SALES CONSULTANT [facility] 1.0.114 350.1.13.10 4.2.7.2.686 [id number] [facility] 2019-12-08 00:00:00 2019-12-08 00:00:00 Orders Only Doctor Unassigned, [place] [facility] 1.2.840.114 350.1.13.10 4.2.7.2.686 [id number] [facility] 2019-11-28 00:00:00 2019-11-28 00:00:00 Telephone Miranda Varela [facility] LIBRARY SALES CONSULTANT [facility] [[email or web address]] 1.2.840.114 350.1.13.10 4.2.7.2.686 [id number] [facility] 2019-11-25 08:40:20 2019-11-25 09:30:23 Office Visit Miranda Varela [facility] LIBRARY SALES CONSULTANT [facility] CHILD [facility] [[email or web address]] 1.2.840.114 350.1.13.10 4.2.7.2.686 [id number] [facility] 2019-11-25 00:00:00 2019-11-25 00:00:00 Telephone Miranda Varela [facility] LIBRARY SALES CONSULTANT [facility] [[email or web address]] 1.2.840.114 350.1.13.10 4.2.7.2.686 [id number] [facility] 2019-11-05 00:00:00 2019-11-05 00:00:00 Telephone Dai Hicks [facility] LIBRARY SALES CONSULTANT [facility] [[email or web address]] 1.2.840.114 350.1.13.10 4.2.7.2.686 [id number] [facility] 2019-06-17 12:53:35 2019-06-17 13:48:17 Office Visit Miranda Varela [facility] LIBRARY SALES CONSULTANT [facility] [[email or web address]] 1.2.840.114 350.1.13.10 4.2.7.2.686 [id number] [facility] 2019-06-17 00:00:00 2019-06-17 00:00:00 Orders Only Doctor Unassigned, [place] [facility] 1.2.840.114 350.1.13.10 4.2.7.2.686 [id number] [facility] Results Test Description Test Time Test Comments Results Result Co mments Source [facility] Urinalysis W Specific [id number] 16:19:00* Test Item Value Reference Range Interpretation [...] Cloudy Lab Interpretation (test cod e = 28128-7) Abnormal [facility] [id number] 19:24:00* Test Item Value Reference Range Interpretation Comme nts POCT PREG (test code = 1605) Negative On board controls acceptable with C Line (test code = 3574) Yes POCT PREG LOT # (test code = 3575) POCT PREG TEST DATE (test code = 3576) CECIL (test code = CECIL) accurate developme nt and interpretation of all internal controls Lab Interpretation (test code = 88364-0) [facility] V[facility]p0820[facility]43 19:24:00* Test Item Value Reference Range Interpretation Comme nts POCT PREG (test code = 1605) Negative On board controls acceptable with C Line (test code = 3574) Yes POCT PREG LOT # (test code = 3575) POCT PREG TEST DATE (test code = 3575) CECIL (test code = CECIL) accurate developme nt and interpretation of all internal controls Lab Interpretation (test code = 14619-3) Normal [facility] Urinalysis W Specific Gcelqsw7077-85-10 19:20:00* Test Item Value Reference Range Interpretation [...] internal controls Lab Interpretation (test code = 98911-3) Normal [facility] Urinalysis W Specific Evvmqjn3676-59-70 19:20:00* Test Item Value Reference Range Interpretation [...] internal controls Lab Interpretation (test code = 13128-7) Normal [facility] ONLY - SYPHILIS IGG/[id number] 15:05:59* Test Item Value Reference Range Interpretation Comme nts Syphilis IgG/IgM (test code = 52728-8) Non-reactive Non-reactive CECIL (test code = CECIL) Non-reactive - No serologic evidence of T. pallidum infection. Cannot exclude incubating or early syphilis. Submit a second specimen in 2-4 weeks if syphilis is clinically suspected. Equivocal - Further testing to follow. Reactive - Further testing to follow. Lab Interpretation (test code = 88924-3) Normal [facility] ONLY - SYPHILIS IGG/[id number] 15:05:59* Test Item Value Reference Range Interpretation Comme nts Syphilis IgG/IgM (test code = 43039-3) Non-reactive Non-reactive CECIL (test code = CECIL) Non-reactive - No serologic evidence of T. pallidum infection. Cannot exclude incubating or early syphilis. Submit a second specimen in 2-4 weeks if syphilis is clinically suspected. Equivocal - Further testing to follow. Reactive - Further testing to follow. Lab Interpretation (test code = 19776-4) Normal [facility] ONLY - SYPHILIS IGG/[id number] 15:05:59* Test Item Value Reference Range Interpretation Comme nts Syphilis IgG/IgM (test code = 10406-9) Non-reactive Non-reactive CECIL (test code = CECIL) Non-reactive - No serologic evidence of T. pallidum infection. Cannot exclude incubating or early syphilis. Submit a second specimen in 2-4 weeks if syphilis is clinically suspected. Equivocal - Further testing to follow. Reactive - Further testing to follow. Lab Interpretation (test code = 47189-5) Normal [facility] 1/2 AG-AB WITH [id number] 06:58:27* Test Item Value Reference Range Interpretation Comme nts HIV Semi-quantitative (test code = 93119-3) 0.12 Negative CECIL (test code = CECIL) Non-reactive for HIV-1 antigen and HIV-1/HIV-2 antibodies. ?No laboratory evidence of HIV infection. ?Repeat in 2-4 weeks if acute HIV infection is suspected. [facility] WITH [id number] 06:58:27* Test Item Value Reference Range Interpretation Comme nts HIV Semi-quantitative (test code = 20848-2) 0.12 Negative CECIL (test code = CECIL) Non-reactive for HIV-1 antigen and HIV-1/HIV-2 antibodies. ?No laboratory evidence of HIV infection. ?Repeat in 2-4 weeks if acute HIV infection is suspected. [facility] 1/2 AG-AB WITH [id number] 06:58:27* Test Item Value Reference Range Interpretation Comme [facility] HIV Semi-quantitative (test code = 64995-5) 0.12 Negative CECIL (test code = CECIL) Non-reactive for HIV-1 antigen and HIV-1/HIV-2 antibodies. ?No laboratory evidence of HIV infection. ?Repeat in 2-4 weeks if acute HIV infection is suspected. [facility] [id number] 05:29:42* Test Item Value Reference Range Interpretation Comme [facility] HCV Ab (test code = 77005-4) Negative HCV Semi-Quantitative (test code = 71137-3) 0.01 [facility] [id number] 05:29:42* Test Item Value Reference Range Interpretation Comme [facility] HCV Ab (test code = 48524-4) Negative HCV Semi-Quantitative (test code = 30834-6) 0.01 [facility] [id number] 05:29:42* Test Item Value Reference Range Interpretation Comme [facility] HCV Ab (test code = 34702-2) Negative HCV Semi-Quantitative (test code = 84085-1) 0.01 [facility] (A1C)2023-03-01 05:25:25* Test Item Value Reference Range Interpretation Comme [facility] HGB A1C (test code = 4548-4) 5.3 % 4.0-5.7 CECIL (test code = CECIL) Reference RangesNormal: <5.7%Prediabetes: 5.7 - 6.4%Diabetes: > 6.5% Lab Interpretation (test code = 23514-8) Normal [facility]A1C)2023-03-01 05:25:25* Test Item Value Reference Range Interpretation Comme nts HGB A1C (test code = 4548-4) 5.3 % 4.0-5.7 CECIL (test code = CECIL) Reference RangesNormal: <5.7%Prediabetes: 5.7 - 6.4%Diabetes: > 6.5% Lab Interpretation (test code = 03991-0) [facility]2023-03-01 05:25:25* Test Item Value Reference Range Interpretation Comme nts HGB A1C (test code = 4548-4) 5.3 % 4.0-5.7 CECIL (test code = CECIL) Reference RangesNormal: <5.7%Prediabetes: 5.7 - 6.4%Diabetes: > 6.5% Lab Interpretation (test code = 09065-1) Normal [facility] WITH [id number] 05:04:15* Test Item Value Reference Range Interpretation Comme nts WBC (test code = 6690-2) 9.14 See_Comment [Automated CIRQYa ge] The system which generated this result transmitted reference range: 4.30 - 11.10 10*3/?L. The reference range was not used to interpret this result as normal/abnormal. RBC (test code = 789-8) 4.95 See_Comment [Automated CIRQYa ge] The system which generated this result [...] 32.5 g/dL 31.6-35.1 RDW-SD (test code = 94125-1) 43.6 fL 39.0-49.9 RDW-CV (test code = 788-0) 12.8 % 12.0-15.5 PLT (test code = 777-3) 326 See_Comment [Automated messa ge] The system which generated this result transmitted reference range: 166 - 358 10*3/?L. The reference range was not used to interpret this result as normal/abnormal. MPV (test code = 54388-6) 10.1 fL 9.5-12.9 NRBC/100 WBC (test code = 9582226152) 0.0 See_Comment [Automated [employer] ssage] The system which generated this result transmitted reference range: 0.0 - 10.0 /100 WBCs. The reference range was not used to interpret this result as normal/abnormal. NRBC x10^3 (test code = 9370202827) See_Comment [Automated CIRQYa ge] The system which generated this result transmitted reference range: 10*3/?L. The reference range was not used to interpret this result as normal/abnormal. GRAN MAT (NEUT) % (test code = 770-8) 59.5 % IMM GRAN % (test code = 4417781817) 0.10 % LYMPH % (test code = 736-9) 31.2 % MONO % (test code = 5905-5) 5.9 % EOS % (test code = 713-8) 2.8 % BASO % (test code = 706-2) 0.5 % GRAN MAT x10^3(ANC) (test code = 9008461811) 5.43 10*3/uL 1.88-7.09 IMM GRAN x10^3 (test code = 0093099000) 0.00-0.06 LYMPH x10^3 (test code = 731-0) 2.85 10*3/uL 1.32-3.29 MONO x10^3 (test code = 742-7) 0.54 10*3/uL 0.33-0.92 EOS x10^3 (test code = 711-2) 0.26 10*3/uL 0.03-0.39 BASO x10^3 (test code = 704-7) 0.05 10*3/uL 0.01-0.07 Lab Interpretation (test code = 08260-3) Abnormal [facility] WITH [id number] 05:04:15* Test Item Value Reference Range Interpretation [...] 32.5 g/dL 31.6-35.1 RDW-SD (test code = 41428-4) 43.6 fL 39.0-49.9 RDW-CV (test code = 788-0) 12.8 % 12.0-15.5 PLT (test code = 777-3) 326 See_Comment [Automated messa ge] The system which generated this result transmitted reference range: 166 - 358 10*3/?L. The reference range was not used to interpret this result as normal/abnormal. MPV (test code = 61569-8) 10.1 fL 9.5-12.9 NRBC/100 WBC (test code = 7367481979) 0.0 See_Comment [Automated [employer] ssage] The system which generated this result transmitted reference range: 0.0 - 10.0 /100 WBCs. The reference range was not used to interpret this result as normal/abnormal. NRBC x10^3 (test code = 9983485481) See_Comment [Automated messa ge] The system which generated this result transmitted reference range: 10*3/?L. The reference range was not used to interpret this result as normal/abnormal. GRAN MAT (NEUT) % (test code = 770-8) 59.5 % IMM GRAN % (test code = 7086726094) 0.10 % LYMPH % (test code = 736-9) 31.2 % MONO % (test code = 5905-5) 5.9 % EOS % (test code = 713-8) 2.8 % BASO % (test code = 706-2) 0.5 % GRAN MAT x10^3(ANC) (test code = 2515816244) 5.43 10*3/uL 1.88-7.09 IMM GRAN x10^3 (test code = 6242945444) 0.00-0.06 LYMPH x10^3 (test code = 731-0) 2.85 10*3/uL 1.32-3.29 MONO x10^3 (test code = 742-7) 0.54 10*3/uL 0.33-0.92 EOS x10^3 (test code = 711-2) 0.26 10*3/uL 0.03-0.39 BASO x10^3 (test code = 704-7) 0.05 10*3/uL 0.01-0.07 Lab Interpretation (test code = 71028-2) Abnormal [facility] WITH [id number] 05:04:15* Test Item Value Reference Range Interpretation Comme nts WBC (test code = 6690-2) 9.14 See_Comment [Automated CIRQYa ge] The system which generated this result transmitted reference range: 4.30 - 11.10 10*3/?L. The reference range was not used to interpret this result as normal/abnormal. RBC (test code = 789-8) 4.95 See_Comment [Automated CIRQYa ge] The system which generated this result [...] 32.5 g/dL 31.6-35.1 RDW-SD (test code = 29220-8) 43.6 fL 39.0-49.9 RDW-CV (test code = 788-0) 12.8 % 12.0-15.5 PLT (test code = 777-3) 326 See_Comment [Automated messa ge] The system which generated this result transmitted reference range: 166 - 358 10*3/?L. The reference range was not used to interpret this result as normal/abnormal. MPV (test code = 38980-0) 10.1 fL 9.5-12.9 NRBC/100 WBC (test code = 7359753492) 0.0 See_Comment [Automated [employer] ssage] The system which generated this result transmitted reference range: 0.0 - 10.0 /100 WBCs. The reference range was not used to interpret this result as normal/abnormal. NRBC x10^3 (test code = 6468850494) See_Comment [Automated messa ge] The system which generated this result transmitted reference range: 10*3/?L. The reference range was not used to interpret this result as normal/abnormal. GRAN MAT (NEUT) % (test code = 770-8) 59.5 % IMM GRAN % (test code = 2811147649) 0.10 % LYMPH % (test code = 736-9) 31.2 % MONO % (test code = 5905-5) 5.9 % EOS % (test code = 713-8) 2.8 % BASO % (test code = 706-2) 0.5 % GRAN MAT x10^3(ANC) (test code = 7985134321) 5.43 10*3/uL 1.88-7.09 IMM GRAN x10^3 (test code = 7527749166) 0.00-0.06 LYMPH x10^3 (test code = 731-0) 2.85 10*3/uL 1.32-3.29 MONO x10^3 (test code = 742-7) 0.54 10*3/uL 0.33-0.92 EOS x10^3 (test code = 711-2) 0.26 10*3/uL 0.03-0.39 BASO x10^3 (test code = 704-7) 0.05 10*3/uL 0.01-0.07 Lab Interpretation (test code = 55195-9) Abnormal [facility], lkfsaw0409-63-09 14:10:00 * Test Item Value Reference Range [...] used to interpret this result as normal/abnormal. [facility] 1 IgG and IgM panel - [id number] 19:14:00* Test Item Value Reference Range Interpretation Comme nts beta 2 glyco,IgG (test code = beta 2 glyco,IgG) <9 0-20 beta 2 glyco,IgA (test code = beta 2 glyco,IgA) <9 0-25 beta 2 glycoprot,IgM (test c ode = beta 2 glycoprot,IgM) <9 0-32 [facility]aks[facility]iolip[facility] IgG and IgM panel - [id number] 19:14:00 * Test Item Value Reference Range Interpretation Comme nts anticardiolipin Ab IgG (test code = anticardiolipin Ab IgG) <9 0-14 anticardiolipin Ab IgM (test code = anticardiolipin Ab IgM) <9 0-12 [facility]Pap w/rfx HPV if ASCUS+leukorrhea panel rfx vance [...] (test code = vance - swab) normal [facility]aksUrinalysis macro (dipstick) panel - Omumj8185-65-57 09:40:09* Test Item Value Reference Range Interpretation Comme nts Leukocytes (test code = Leukocytes) Trace Nitrite (test code = Nitrite) negative Urobilinogen (test code = Urobilinogen) .2 Protein (test code = Protein) Negative pH (test code = pH) 5.5 Blood (test code = Blood) Negative Specific Viola (test code = Specific Viola) 1.030 Ketone (test code = Ketone) Negative Bilirubin (test code = Bilirubin) Small Glucose (test code = Glucose) Negative Appearance (test code = Appearance) Cloudy Color (test code = Color) Yellow [facility]aksUrinalysis macro (dipstick) panel - Liiry9152-48-50 09:40:09* Test Item Value Reference Range Interpretation Comme nts Leukocytes (test code = Leukocytes) Trace Nitrite (test code = Nitrite) negative Urobilinogen (test code = Urobilinogen) .2 Protein (test code = Protein) Negative pH (test code = pH) 5.5 Blood (test code = Blood) Negative Specific Viola (test code = Specific Viola) 1.030 Ketone (test code = Ketone) Negative Bilirubin (test code = Bilirubin) Small Glucose (test code = Glucose) Negative Appearance (test code = Appearance) Cloudy Color (test code = Color) Yellow [facility] - cancer history assessment jyumxj6918-13-07 08:33:00 * Test Item Value Reference Range Interpretation Comme [facility] - cancer history assessment result (test code = [facility] - cancer history assessment result) does not meet criteria [facility] - cancer history assessment ryuohy6904-12-68 08:33:00 * Test Item Value Reference Range Interpretation Comme [facility] - cancer history assessment result (test code = [facility] - cancer history assessment result) does not meet criteria [facility] + [facility] + TV, DNA, urine/koeg3761-60-03 00:00:00* Test Item Value Reference Range Interpretation Comme nts vance - swab (test code = vance - swab) normal gardnerella (test code = gardnerella) abnormal A CT/NG (test code = CT/NG) normal trichomonas vaginalis addon - swab (test code = trichomonas vaginalis addon - swab) normal [facility] macro (dipstick) panel - Jebeb7978-39-35 14:03:06* Test Item Value Reference Range Interpretation Comme nts Leukocytes (test code = Leukocytes) Negative Nitrite (test code = Nitrite) negative Urobilinogen (test code = Urobilinogen) .2 Protein (test code = Protein) Negative pH (test code = pH) 6.0 Blood (test code = Blood) Negative Specific Viola (test code = Specific Viola) 1.030 Ketone (test code = Ketone) Negative Bilirubin (test code = Bilirubin) Negative Glucose (test code = Glucose) Negative Appearance (test code = Appearance) Clear Color (test code = Color) Yellow [facility] macro (dipstick) panel - Zrfzv3706-17-65 14:03:06* Test Item Value Reference Range Interpretation Comme nts Leukocytes (test code = Leukocytes) Negative Nitrite (test code = Nitrite) negative Urobilinogen (test code = Urobilinogen) .2 Protein (test code = Protein) Negative pH (test code = pH) 6.0 Blood (test code = Blood) Negative Specific Viola (test code = Specific Viola) 1.030 Ketone (test code = Ketone) Negative Bilirubin (test code = Bilirubin) Negative Glucose (test code = Glucose) Negative Appearance (test code = Appearance) Clear Color (test code = Color) Yellow [facility] [id number] 20:02:00* Test Item Value Reference Range Interpretation Comme nts POCT PREG (test code = 1605) Negative On board controls acceptable with C Line (test code = 3574) Yes POCT PREG LOT # (test code = 3575) POCT PREG TEST DATE ( test code = 3576) [facility] Notes Date/Time Note Provider Source 2023-10-24 13:00:00 [id number] Z48BGGBo2QlOgmBUviOZHy v8KU1+8Sm6pTA+s+2T+tf84545-91-31R66:00:00A ddended by: LIUDMILA JAMES on: 10/25/2023 03:51 PMModules accepted: Orders [id number] GmvaifthPO0314-18-63K55:51:06Addendum DocumentTXT1.2.840.103545.1.13.104.2.7.2.7 [id number] for patient eiki82125-0AugiMBZDYPAZMMJAispjlonu C-CDA narrative [address] Kx[id number] OQQRDWQQGZRCSMDH3296-71-26W02:51:061.2.840 .910601.1.72.3.15|1.2.840.889852.1.13.104. [id number] [facility]"
[2024-01-17 19:17] LABS: Specific Gravity 1.009 (1.005-1.030)
--- NOTE | 2024-01-17 19:38 | RAD REPORT ---
EXAM DESCRIPTION: US - Transvaginal OB - 01/17/2024 7:23 pm CLINICAL HISTORY: ABD PAIN COMPARISON: Transvaginal OB dated 04/01/2021 TECHNIQUE: Sonographic grayscale and color flow images of a first-trimester were obtained through transvaginal approach. FINDINGS: Uterus is anteverted measures 6.8 cm in length. No focal myometrial abnormality. Endometrium is prominent, without discrete evidence of a gestational sac, measuring 1.7 cm in thickne ss. No fluid or polyp/mass along the endometrium. Maternal ovaries are unremarkable, the right ovary measures 2.7 x 1.5 x 1.6 cm, the left ovary measur es 3.1 x 1.9 x 2.5 cm. No free fluid. IMPRESSION: 1. Prominent endometrium, without evidence of a gestational sac or suspicious adnexal pr ocess. 2. Please correlate with serial beta HCG trend, and consider short-term follow-up by ultrasound in 7- 10 days to re-evaluate for a viable .
--- NOTE | 2024-01-17 19:48 | ER ---
Nurse's Notes [facility] Name: Beena Garcia Age: 28 yrs Sex: Female : 1995 Arrival Date: 01/17/2024 Time: 17:39 Bed IW3 Private MD: Diagnosis: Abdominal pain, unspecified;Encounter for supervision of normal first , first trimester Presentation: 01/16 18:29 Chief complaint: Patient states: right shoulder pain, right abdominal pain and flank ko1 pain, positive preg test on sunday. Coronavirus screen: At this time, the client does not indicate any symptoms associated with coronavirus-19. Ebola Screen: No symptoms or risks identified at this time. Initial Sepsis Screen: Does the patient meet any 2 criteria? No. Patient's initial sepsis screen is negative. Does the patient have a suspected source of infection? No. Patient's initial sepsis screen is negative. Risk Assessment: Do you want to hurt yourself or someone else? Patient reports no desire to harm self or others. Onset of symptoms is unknown. 18:29 Method Of Arrival: Ambulatory ko1 18:29 Acuity: LETTY 4 ko1 Triage Assessment: 18:30 General: Appears in no apparent distress. Behavior is calm, cooperative, appropriate ko1 for age. Pain: Complains of pain in abdomen. GI: Reports lower abdominal pain. MANAGER QUALITY COMPLIANCE: 18:37 5, Full Term 0, Premature 0, 4, Living 0, LMP 11/22/2023, sb4 Verified, EDC 08/28/2024, Gestational age from LMP: 8 weeks 0 days Historical: - Allergies: 18:30 Codeine (Hives); ko1 - PMHx: 18:30 miscarriage; UTI; ko1 - Immunization history:: Adult Immunizations up to date. - Social history:: Smoking status: Patient denies any tobacco usage or history of. Screenin:00 [facility] ED Fall Risk Assessment (Adult) History of falling in the last 3 months, pf1 including since admission No falls in past 3 months (0 pts) Confusion or Disorientation No (0 pts) Intoxicated or Sedated No (0 pts) Impaired Gait No (0 pts) Mobility Assist Device Used No (0 pt) Altered Elimination No (0 pt) Score/Fall Risk Level 0 - 2 = Low Risk Oriented to surroundings, Maintained a safe environment, Educated pt \T\ family on fall prevention, incl call for assistance when getting out of bed, Assessed \T\ reinforced patient's understanding of fall precautions, Provided non-skid footwear, Hourly rounding (assess needs \T\ fall precautionary measures) done, Used ambulatory aids as needed (educated on \T\ assisted with), Used gait belt as appropriate. Abuse screen: Denies threats or abuse. Nutritional screening: No deficits noted. Tuberculosis screening: No symptoms or risk factors identified. Assessment: 19:20 Reassessment: called from [facility], no response. pf1 19:30 Reassessment: called from [facility], no response. pf1 19:46 Reassessment: called from [facility], no response. Called patient cell phone, patient stated pf1 had to leave and is home, did not want to wait. 20:27 Reassessment: called patient back with test results. Patient to follow up with her pf1 MANAGER QUALITY COMPLIANCE on Sunday. Vital Signs: 18:29 BP 114 / 80; Pulse 89; Resp 15; Temp 98.3; Pulse Ox 100% ; ko1 ED Course: 17:40 Patient arrived in ED. rg4 18:15 Irene Izaguirre PA-C is PHCP. sb4 18:15 Nikhil Agustin MD is Attending Physician. sb4 18:30 Triage completed. ko1 18:30 Arm band placed on right wrist. Patient placed in waiting room, Patient notified of ko1 wait time. 18:40 Radiology exam delayed due to test not completed at this time. ml6 18:54 Test, Urine Sent. ko1 19:23 Alta Fatima is Primary Nurse. cp4 19:25 Transvaginal Ob In Process Unspecified. EDMS 19:55 Primary Nurse role handed off by Alta Fatima rv1 20:00 No provider procedures requiring assistance completed. pf1 20:00 Patient did not have IV access during this emergency room visit. pf1 20:25 Provided Education on: follow up. pf1 20:25 Patient has correct armband on for positive identification. pf1 Administered Medications: No medications were administered Medication: 20:29 VIS not applicable for this client. pf1 Outcome: 19:47 Patient left the ED. pf1 19:57 Discharge ordered by . sb4 20:25 Discharged to home ambulatory, pf1 20:25 Condition: stable pf1 20:25 Discharge instructions given to patient, Instructed on discharge instructions, follow up and referral plans. Demonstrated understanding of instructions, follow-up care, 20:30 Patient left the ED. pf1 Signatures: Dispatcher [employer] EDAwilda Johansen rg4 Crystal Monroe RN RN ko1 Irene Izaguirre, PAEbonyC PACatrachito sb4 Re Scott RN RN pf1 Pura Rg rv1 Edwina Longo ml6 Alta Fatima cp4 Corrections: (The following items were deleted from the chart) 18:32 18:29 Chief complaint: Patient states: right shoulder pain, right abdominal pain and ko1 flank pain ko1
--- NOTE | 2024-01-17 19:48 | EDPHYS ---
Physician Documentation [facility] Name: Beena Garcia Age: 28 yrs Sex: Female : 1995 Arrival Date: 01/17/2024 Time: 17:39 Bed IW3 Private MD: ED Physician Nikhil Agustin HPI: 01/16 18:37 This 28 yrs old Female presents to ER via Ambulatory with complaints of sb4 Abdominal Pain. 18:37 The patient presents to the emergency department with abdominal pain, of the anterior sb4 aspect of right lateral abdomen, that started 6 day(s) ago. Previous pregnancies: in previous pregnancies patient has had miscarriages. Associated signs and symptoms: Pertinent negatives: vaginal bleeding. Patient was seen here on Sunday for right lower quadrant/right flank pain, had negative UPT, discharged with diagnosis of gallstones. States her pain persisted and she took a home test 3 days later that was positive. Now she is worried about having an ectopic . Denies any vaginal bleeding or abdominal cramping. 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 - Social history:: Smoking status: Patient denies any tobacco usage or history of. ROS: 18:37 Constitutional: Negative for fever, chills, and weight loss, sb4 18:37 Abdomen/GI: Positive for abdominal pain, 18:37 All other systems are negative, Exam: 18:37 Constitutional: This is a well developed, well nourished patient who is awake, alert, sb4 and in no acute distress. Head/Face: Normocephalic, atraumatic. Eyes: Extra-ocular motions intact. Periorbital areas with no swelling, redness, or edema. ENT: Mucous membranes moist. Cardiovascular: Regular rate and rhythm with a normal S1 and S2. Respiratory: Lungs have equal breath sounds bilaterally, clear to auscultation and percussion. No rales, rhonchi or wheezes noted. No increased work of breathing, no retractions or nasal flaring. Abdomen/GI: Soft, non-tender, no distension. Skin: Warm, dry with normal turgor. Normal color with no rashes, no lesions, and no evidence of cellulitis. MS/ Extremity: Pulses equal, no cyanosis. Neurovascular intact. Full, normal range of motion. Neuro: Awake and alert, GCS 15, oriented to person, place, time, and situation. Motor strength 5/5 in all extremities. Sensory grossly intact. Vital Signs: 18:29 BP 114 / 80; Pulse 89; Resp 15; Temp 98.3; Pulse Ox 100% ; ko1 MDM: 18:32 Patient medically screened. sb4 18:37 Differential diagnosis: threatened Ab, ectopic , Gallstones, ovarian cyst, UPT.sb4 19:56 Data reviewed: vital signs, nurses notes, lab test result(s), radiologic studies, and sb4 as a result, I will discharge patient. Counseling: I had a detailed discussion with the patient and/or guardian regarding the historical points, exam findings, and any diagnostic results supporting the discharge/admit diagnosis, lab results, radiology results, the need for outpatient follow up, an OB/Gyne specialist, to return to the emergency department if symptoms worsen or persist or if there are any questions or concerns that arise at home. 19:56 ED course: Patient eloped after my assessment and after ultrasound. Ultrasound is sb4 unremarkable. Patient was contacted via phone and stated that she was not coming back. She is safe for discharge at this time. 01/16 18:37 Order name: Test, Urine; Complete Time: 19:51 sb4 01/16 18:37 Order name: US Transvaginal Ob; Complete Time: 19:40 sb4 01/16 18:37 Order name: IV Saline Lock sb4 01/16 18:37 Order name: Labs collected and sent sb4 Administered Medications: No medications were administered Disposition Summary: 01/17/24 19:57 Discharge Ordered Notes: Location: Home sb4 Problem: an ongoing problem sb4 Symptoms: are unchanged sb4 Condition: Stable sb4 Diagnosis - Abdominal pain, unspecified sb4 - Encounter for supervision of normal first , first trimester sb4 Followup: sb4 - With: Emergency Department - When: As needed - Reason: Trouble breathing, Worsening of condition Forms: - Medication Reconciliation Form sb4 - Thank You Letter sb4 - Antibiotic Education sb4 - Prescription Opioid Use sb4 - Patient Portal Instructions sb4 - Leadership Thank You Letter sb4 Signatures: Dispatcher [employer] Crystal Mullen, RN RN Irene Rangel PA-C PA-C sb4 Re Scott RN RN pf1 Corrections: (The following items were deleted from the chart) 19:55 19:47 after being seen by provider pf1 rv1 19:55 19:47 wait time pf1 rv1
[2024-01-17 20:24] VITALS: BP 114/80; TEMP 98.3; O2SAT 100
== END 2024-01-17 20:30 | disposition home or self-care (01) ==
LOC: ER 17:39
DX: O26.891 Other specified pregnancy related conditions, first trimester (principal); Z3A.08 8 weeks gestation of pregnancy
CPT/HCPCS: 76817; 81025; 99283

== ENCOUNTER 2024-02-06 10:51 | Emergency (ER) | payer OTHER ==
--- OUTSIDE RECORDS SUMMARY | 2024-02-06 11:25 | XMS REPORT | Continuity of Care Document ---
Author Name Unknown Address [address] [facility] [place] [address] [facility] thconnect Address [address] [facility] [address] [place] [address] Care Team Providers Care Apprentice Electrician Name Role Phone DAI HICKS Primary Care Physician Unav ailable WALDEMAR HERNANDEZ Attending Clinician Unavailyarelis Blunt Attending Clinician Unavailable ERICH TAYLOR Attending Clinician Unavailable ENA DALTON Attending Clinician Unavailelkin ble UNKNOWN, ATTENDING Attending Clinician Unavailab LIUDMILA Dave Attending Clinician Unavailable Liudmila James PA-C Attending Clinician [phone] Unknown, Attending Attending Clinician Unavailab le Doctor Unassigned, [place] Attending Clinician U navailable DAI HICKS Attending Clinician Unavail able IVY MONTEJO Attending Clinician UnavailEna Hawkins CNM Attending Clinician [phone] Kurt Dai TRAN Attending Clinician + VELIA WEBER Attending Clinician Unavailable RICHARD AMAYA Attending Clinician Unavailab KARLA Damian Attending Clinician UnavailKaushik Gerber-Rmchp Attending Clinician Unavailable Miranda Marroquin Attending Clinician [phone] Richard Machuca Attending Clinician Unava ilPardeep Yañez DO Attending Clinician [phone] MIRANDA VARELA Attending Clinician Unavailabl e Ariela_Yessi Admitting Clinician Unavailable Payers Payer Name Policy Type Policy Number Effective Date Expirati on Date Source [facility] (MEDICAID HMO) [id number] 2016 00:00:00 VANDANA JAMIL [id number] 2022 00:00:00 MEDICAID PENDING PENDING 2021 00:00:00 [facility] [id number] 2017 00:00:00 Problems Condition Name Condition Details Condition Category Status Onset Date Resolution Date Last Treatment Date Treating Clinician Comments Source of left fallopian tube of Left Fallopian Tube Problem Active 01-31 00:00: 00 [facility] High risk due to recurrent loss High Risk Due to Recurrent Loss Problem Active 01-22 00:00: 00 [facility] History of abnormal cervical Pap smear History of abnormal cervical Pap smear Disease Active 03-03 00:00: 00 Overview: Formattin g of this note might be different from the original. 2016 Negative PAP [id number] Negative PAP [id number] Negative PAP +HPV, negative [id number] Negative PAP and [id number] Negative PAP and [id number] pending [facility] Other general counseling and advice for contracept rishi management Other general counseling and advice for contracept rishi management Disease Active 03-31 00:00: 00 [facility] Cyst of right ovary Cyst of right ovary Disease Active 04-13 00:00: 00 [facility] Over weight Over weight Disease Active 2016-10 00:00: 00 [facility] Allergies, Adverse Reactions, Alerts Allergy Name Allergy Type Status Severity Reaction(s) Onset Date Inactive Date Treating Clinician Comments Source Codeine Propensi ty to adverse reaction s Active Hives 02-27 00:00: 00 [facility] CODEINE DRUG INGREDI Active Hives 02-27 00:00: 00 [facility] Codeine Allergy to substanc e Active [facility] Social History Social Habit Start Date Stop Date Quantity Comments Source ASSERTION [facility] intake 2023-11-13 00:00:00 2023-11-13 00:00:00 Current drinker of alcohol (finding) [facility] Exposure to SARS-CoV-2 (event) 2023-02-18 00:00:00 2023-02-28 06:11:00 Not sure [facility] Alcohol Comment 2023-02-28 00:00:00 2023-02-28 00:00:00 social [facility] History of Social function 2023-02-28 00:00:00 2023-02-28 00:00:00 [facility] Tobacco use and exposure 2022-06-21 00:00:00 2022-06-21 00:00:00 Smokeless tobacco non-user [facility] Sex Assigned At 1995 00:00:00 1995 00:00:00 [facility] Smoking Status Start Date Stop Date Source Never smoked tobacco [facility] Medications Ordered Medication Name Filled Medication Name Start Date Stop Date Current Medication? Ordering Clinician Indication Dosage Frequency Signature (SIG) Comments Components Source cefdinir 300 mg capsule 01-10 00:00: 00 Yes [id number] 300mg Take 1 capsule by mouth every 12 (twelve) hours. [facility] fluconazole (DIFLUCAN) 150 mg tablet 10-25 00:00: 00 Yes [id number] 150mg Take 1 tablet by mouth every 72 (seventy-t wo) hours. [facility] Nitrofurant oin&Nit. Macrocryst (MACROBID) 100 mg capsule 10-24 00:00: 00 Yes [id number] 100mg Take 1 capsule by mouth in the morning and 1 capsule in the evening. [facility] fluconazole (DIFLUCAN) 150 mg tablet 03-02 00:00: 00 03-03 04:59 :00 No [id number] 150mg Take 1 tablet by mouth once now for 1 dose. Take second tablet in 1 week [facility] phentermine HCl (PHENTERMIN E ORAL) 02-28 08:20: 44 Yes Take by mouth. [facility] norgestimat e-ethinyl estradioL (ORTHO TRI-CYCLEN, 28,) 0.18/0.215/ 0.25 mg-35 mcg (28) tablet 9-16 00:00: 00 02-28 00:00 :00 No [id number] 1{tbl} Take 1 tablet by mouth in the morning. [facility] Nitrofurant oin&Nit. Macrocryst (MACROBID) 100 mg capsule 6-13 00:00: 00 02-28 00:00 :00 No [id number] 100mg Take 1 capsule by mouth 2 (two) times daily. [facility] PNV 67-iron ps-folate no.1-dha (VITAFOL ULTRA) 29 mg iron- 1 mg-200 mg Cap - 00:00: 00 10-28 00:00 :00 No [id number] 1{each} Take 1 Each by mouth daily. [facility] norgestimat e-ethinyl estradioL 0.18/0.215/ 0.25 mg-25 mcg tablet 5-05 00:00: 00 10-28 00:00 :00 No [id number] 1{tbl} Take 1 tablet by mouth daily. [facility] progesteron e micronized 200 mg capsule INSERT 1 CAPSULE VAGINALLY EVERY NIGHT progesteron e micronized 200 mg capsule INSERT 1 CAPSULE VAGINALLY EVERY NIGHT No progestero ne micronized 200 mg capsule INSERT 1 CAPSULE VAGINALLY EVERY NIGHT [facility] ibuprofen 800 mg tablet Take 1 tablet every 6 hours by oral route as needed. ibuprofen 800 mg tablet Take 1 tablet every 6 hours by oral route as needed. No 1 Q6H ibuprofen 800 mg tablet Take 1 tablet every 6 hours by oral route as needed. [facility] Immunizations Ordered Immunization Name Filled Immunization Name Date Status Comments Source HPV9 2019-09-10 00:00:00 Completed [facility] HPV9 2019-09-10 00:00:00 Completed [facility] HPV9 2019-09-10 00:00:00 Completed [facility] HPV9 2019-09-10 00:00:00 Completed [facility] HPV9 2019-09-10 00:00:00 Completed [facility] HPV9 2019-09-10 00:00:00 Completed [facility] HPV9 2019-09-10 00:00:00 Completed [facility] HPV9 2019-09-10 00:00:00 Completed [facility] HPV9 2019-09-10 00:00:00 Completed [facility] HPV9 2019-06-17 00:00:00 Completed [facility] HPV9 2019-06-17 00:00:00 Completed [facility] HPV9 2019-06-17 00:00:00 Completed [facility] HPV9 2019-06-17 00:00:00 Completed [facility] HPV9 2019-06-17 00:00:00 Completed [facility] HPV9 2019-06-17 00:00:00 Completed [facility] HPV9 2019-06-17 00:00:00 Completed [facility] HPV9 2019-06-17 00:00:00 Completed [facility] HPV9 2019-06-17 00:00:00 Completed [facility] Influenza Virus Vaccine Quad IM 3+ YRS 2016-09-06 00:00:00 Completed [facility] Influenza Virus Vaccine Quad IM 3+ YRS 2016-09-06 00:00:00 Completed [facility] Influenza Virus Vaccine Quad IM 3+ YRS 2016-09-06 00:00:00 Completed [facility] Influenza Virus Vaccine Quad IM 3+ YRS 2016-09-06 00:00:00 Completed [facility] Influenza Virus Vaccine Quad IM 3+ YRS 2016-09-06 00:00:00 Completed [facility] Influenza Virus Vaccine Quad IM 3+ YRS 2016-09-06 00:00:00 Completed [facility] Influenza Virus Vaccine Quad IM 3+ YRS 2016-09-06 00:00:00 Completed [facility] Influenza Virus Vaccine Quad IM 3+ YRS 2016-09-06 00:00:00 Completed [facility] Influenza Virus Vaccine Quad IM 3+ YRS 2016-09-06 00:00:00 Completed [facility] TDAP 2009-10-22 00:00:00 Completed [facility] TDAP 2009-10-22 00:00:00 Completed [facility] TDAP 2009-10-22 00:00:00 Completed [facility] TDAP 2009-10-22 00:00:00 Completed [facility] TDAP 2009-10-22 00:00:00 Completed [facility] TDAP 2009-10-22 00:00:00 Completed [facility] TDAP 2009-10-22 00:00:00 Completed [facility] TDAP 2009-10-22 00:00:00 Completed [facility] TDAP 2009-10-22 00:00:00 Completed [facility] HPV9 Unknown Completed [facility] TDAP Unknown Completed [facility] Influenza Virus Vaccine Quad IM 3+ YRS Unknown Completed [facility] HPV9 Unknown Completed [facility] HPV9 Unknown Completed [facility] TDAP Unknown Completed [facility] Influenza Virus Vaccine Quad IM 3+ YRS Unknown Completed [facility] HPV9 Unknown Completed [facility] HPV9 Unknown Completed [facility] TDAP Unknown Completed [facility] Influenza Virus Vaccine Quad IM 3+ YRS Unknown Completed [facility] HPV9 Unknown Completed [facility] HPV9 Unknown Completed [facility] TDAP Unknown Completed [facility] Influenza Virus Vaccine Quad IM 3+ YRS Unknown Completed [facility] HPV9 Unknown Completed [facility] HPV9 Unknown Completed [facility] TDAP Unknown Completed [facility] Influenza Virus Vaccine Quad IM 3+ YRS Unknown Completed [facility] HPV9 Unknown Completed [facility] HPV9 Unknown Completed [facility] TDAP Unknown Completed [facility] Influenza Virus Vaccine Quad IM 3+ YRS Unknown Completed [facility] HPV9 Unknown Completed [facility] HPV9 Unknown Completed [facility] TDAP Unknown Completed [facility] Influenza Virus Vaccine Quad IM 3+ YRS Unknown Completed [facility] HPV9 Unknown Completed [facility] HPV9 Unknown Completed [facility] TDAP Unknown Completed [facility] Influenza Virus Vaccine Quad IM 3+ YRS Unknown Completed [facility] HPV9 Unknown Completed [facility] HPV9 Unknown Completed [facility] TDAP Unknown Completed [facility] Influenza Virus Vaccine Quad IM 3+ YRS Unknown Completed [facility] HPV9 Unknown Completed [facility] HPV9 Unknown Completed [facility] TDAP Unknown Completed [facility] Influenza Virus Vaccine Quad IM 3+ YRS Unknown Completed [facility] HPV9 Unknown Completed [facility] HPV9 Unknown Completed [facility] TDAP Unknown Completed [facility] Influenza Virus Vaccine Quad IM 3+ YRS Unknown Completed [facility] HPV9 Unknown Completed [facility] HPV9 Unknown Completed [facility] TDAP Unknown Completed [facility] Influenza Virus Vaccine Quad IM 3+ YRS Unknown Completed [facility] HPV9 Unknown Completed [facility] HPV9 Unknown Completed [facility] TDAP Unknown Completed [facility] Influenza Virus Vaccine Quad IM 3+ YRS Unknown Completed [facility] HPV9 Unknown Completed [facility] HPV9 Unknown Completed [facility] TDAP Unknown Completed [facility] Influenza Virus Vaccine Quad IM 3+ YRS Unknown Completed [facility] HPV9 Unknown Completed [facility] HPV9 Unknown Completed [facility] TDAP Unknown Completed [facility] Influenza Virus Vaccine Quad IM 3+ YRS Unknown Completed [facility] HPV9 Unknown Completed [facility] HPV9 Unknown Completed [facility] TDAP Unknown Completed [facility] Influenza Virus Vaccine Quad IM 3+ YRS Unknown Completed [facility] HPV9 Unknown Completed [facility] HPV9 Unknown Completed [facility] TDAP Unknown Completed [facility] Influenza Virus Vaccine Quad IM 3+ YRS Unknown Completed [facility] HPV9 Unknown Completed [facility] Vital Signs Vital Name Observation Time Observation Value Comments S ource BP Systolic 2024-02-01 00:00:00 113 mm[Hg] [facility] Body Weight 2024-02-01 00:00:00 157.3 [lb_av] [facility] BMI (Body Mass Index) 2024-02-01 00:00:00 30.7 kg/m2 [facility] BP Diastolic 2024-02-01 00:00:00 81 mm[Hg] [facility] Height 2024-02-01 00:00:00 60 [in_i] [facility] BP Systolic 2024-01-31 00:00:00 127 mm[Hg] [facility] Body Weight 2024-01-31 00:00:00 159.2 [lb_av] [facility] BMI (Body Mass Index) 2024-01-31 00:00:00 31.1 kg/m2 [facility] Height 2024-01-31 00:00:00 60 [in_i] [facility] BP Diastolic 2024-01-31 00:00:00 75 mm[Hg] [facility] Systolic blood pressure 2024-01-11 16:12:00 116 mm[Hg] [facility] Diastolic blood pressure 2024-01-11 16:12:00 79 mm[Hg] [facility] Heart rate 2024-01-11 16:12:00 85 /min [facility] Body temperature 2024-01-11 16:12:00 36.61 Shelly [facility] Respiratory rate 2024-01-11 16:12:00 18 /min [facility] Body height 2024-01-11 16:12:00 154.9 cm [facility] Body weight 2024-01-11 16:12:00 71.532 kg [facility] BMI 2024-01-11 16:12:00 29.80 kg/m2 [facility] Oxygen saturation in Arterial blood by Pulse oximetry 2024-01-11 16:12:00 99 /min [facility] Systolic blood pressure 2023-10-24 19:18:00 119 mm[Hg] [facility] Diastolic blood pressure 2023-10-24 19:18:00 75 mm[Hg] [facility] Heart rate 2023-10-24 19:18:00 98 /min [facility] Body temperature 2023-10-24 19:18:00 37.17 Shelly [facility] Respiratory rate 2023-10-24 19:18:00 16 /min [facility] Body weight 2023-10-24 19:18:00 70.308 kg [facility] BMI 2023-10-24 19:18:00 31.31 kg/m2 [facility] Oxygen saturation in Arterial blood by Pulse oximetry 2023-10-24 19:18:00 97 /min [facility] Systolic blood pressure 2023-02-28 13:12:00 123 mm[Hg] [facility] Diastolic blood pressure 2023-02-28 13:12:00 88 mm[Hg] [facility] Heart rate 2023-02-28 13:12:00 91 /min [facility] Body temperature 2023-02-28 13:12:00 36.83 Shelly [facility] Respiratory rate 2023-02-28 13:12:00 18 /min [facility] Body height 2023-02-28 13:12:00 149.9 cm [facility] Body weight 2023-02-28 13:12:00 66.395 kg [facility] BMI 2023-02-28 13:12:00 29.56 kg/m2 [facility] BP Diastolic 2022-11-02 00:00:00 72 mm[Hg] [facility] Height 2022-11-02 00:00:00 64 [in_i] [facility] BMI (Body Mass Index) 2022-11-02 00:00:00 25 kg/m2 [facility] BP Systolic 2022-11-02 00:00:00 108 mm[Hg] [facility] Body Weight 2022-11-02 00:00:00 145.4 [lb_av] [facility] Height 2022-10-12 00:00:00 64 [in_i] [facility] BMI (Body Mass Index) 2022-10-12 00:00:00 24.6 kg/m2 [facility] BP Systolic 2022-10-12 00:00:00 114 mm[Hg] [facility] Body Weight 2022-10-12 00:00:00 143.3 [lb_av] [facility] BP Diastolic 2022-10-12 00:00:00 83 mm[Hg] [facility] BP Diastolic 2022-09-12 00:00:00 79 mm[Hg] [facility] Height 2022-09-12 00:00:00 64 [in_i] [facility] BMI (Body Mass Index) 2022-09-12 00:00:00 25.6 kg/m2 [facility] BP Systolic 2022-09-12 00:00:00 119 mm[Hg] [facility] Body Weight 2022-09-12 00:00:00 148.9 [lb_av] [facility] Systolic blood pressure 2022-07-07 20:00:00 107 mm[Hg] [facility] Diastolic blood pressure 2022-07-07 20:00:00 67 mm[Hg] [facility] Heart rate 2022-07-07 20:00:00 74 /min [facility] Body temperature 2022-07-07 20:00:00 36.44 Shelly [facility] Respiratory rate 2022-07-07 20:00:00 18 /min [facility] Body height 2022-07-07 20:00:00 149.9 cm [facility] Body weight 2022-07-07 20:00:00 64.921 kg [facility] BMI 2022-07-07 20:00:00 28.91 kg/m2 [facility] Procedures Procedure Date / Time Performed Performing Clinician Source ULTRASOUND, UTERUS REAL TIME WITH IMAGE DOCUMENTAITON, TRANSVAGINAL 2024-01-31 00:00:00 [facility] ULTRASOUND, UTERUS REAL TIME WITH IMAGE DOCUMENTAITON, TRANSVAGINAL 2024-01-23 00:00:00 [facility] POCT URINALYSIS 2024-01-11 00:00:00 [facility] 2024-01-11 00:00:00 Gwendolyn James [facility] POCT TEST 2023-10-24 19:23:00 Gwendolyn James y [facility] GALV ONLY - VAGINAL PATHOGENS BY NUCLEIC ACID TESTING 2023-10-24 19:20:00 Liudmila James [facility] POCT URINALYSIS 2023-10-24 19:19:00 Liudmila James Nik [facility] ASSIGNMENT OF BENEFITS 2023-10-24 19:09:13 Docfranko r Unassigned, [place] [facility] CBC WITH DIFF 2023-02-28 13:55:00 Ena Dalton [facility] GLYCOSYLATED HEMOGLOBIN (A1C) 2023-02-28 13:55:00 Ena Dalton [facility] HCV ANTIBODY 2023-02-28 13:55:00 [facility] & CHLAMYDIA AMPLIFIED ASSAY 2023-02-28 13:55:00 Ena Dalton [facility] GALV ONLY - VAGINAL PATHOGENS BY NUCLEIC ACID TESTING 2023-02-28 13:55:00 Ena Dalton [facility] HIV 1/2 AG-AB WITH REFLEX 2023-02-28 13:55:00 Ena Dalton [facility] SYPHILIS IGG/IGM 2023-02-28 13:55:00 Ena Dalton [facility] ASSIGNMENT OF BENEFITS 2023-02-28 12:47:02 Docfranko r Unassigned, [place] [facility], transvaginal 2022-11-16 00:00:00 [facility] REFERRAL- REQUEST/RESPONSE 2022-10-14 06:01:00 Doctor Unassigned, [place] [facility], transvaginal 2022-09-12 00:00:00 [facility] POCT TEST 2022-07-07 20:02:00 Meet Hicks [facility] Salpingectomy, Laparoscopic (Surg) [facility] Plan of Care Planned Activity Planned Date Details Comments Source Diagnostic Test Pending 2024-02-01 00:00:00 urinalysis, dipstick [code = urinalysis, dipstick] [facility] Future Appointment 2024-02-15 14:00:[address]; [address], [place] [address] [facility] Instructions [facility] Encounters Start Date/Time End Date/Time Encounter Type Admission Type Attending Clinicians Care Facility Care Department Encounter ID Source 2022-10-12 10:36:13 Outpatient [facility] [id number] [facility] 2024-02-01 14:23:00 2024-02-01 14:23:00 Outpatient WALDEMAR IRBY [facility] [id number] [facility] 2024-02-01 00:00:00 2024-02-01 00:00:00 Waldemar Hernandez MD: [address] [place] [address], [address] [address] , Ph. [phone] [facility] [id number] [facility] 2024-01-31 15:00:00 2024-01-31 15:00:00 Outpatient WALDEMAR IRBY [facility] [id number] [facility] 2024-01-31 00:00:00 2024-01-31 00:00:00 Waldemar Hernandez MD: [address] [place] [address], [address], [place] [address] , Ph. [phone] [facility] [id number] [facility] 2024-01-29 00:00:00 2024-01-29 00:00:00 Outpatient Jose Raul FONTANEZ [facility] [id number] [facility] 2024-01-25 14:19:00 2024-01-25 14:19:00 Outpatient JEANNE CHARLESGHAN [facility] [id number] [facility] 2024-01-23 09:29:00 2024-01-23 09:29:00 Outpatient ERICH CHARLES [facility] [id number] [facility] 2024-01-23 00:00:00 2024-01-23 00:00:00 GLENN Gray: [address] [facility], [address], [place] [address] , Ph. [phone] White_M [facility] [id number] [facility] 2024-01-22 08:15:00 2024-01-22 08:15:00 Outpatient R ENA DALTON [facility] [id number] [facility] 2024-01-16 00:00:00 2024-01-16 00:00:00 Outpatient White_M [facility] [id number] [facility] 2024-01-11 14:00:00 2024-01-11 14:00:00 Outpatient R LAURA, ATTENDING [facility] [id number] [facility] 2024-01-11 11:00:00 2024-01-11 11:20:14 Outpatient R LIUDMILA JAMES [facility] [id number] [facility] 2024-01-11 11:00:00 2024-01-11 11:20:14 Urgent Care Liudmila James, Attending [facility] [id number] [facility] 2023-10-24 13:00:00 2023-10-24 13:27:23 Outpatient LIUDMILA DYE [facility] [id number] [facility] 2023-10-24 13:00:00 2023-10-24 13:27:23 Urgent Care Liudmila James, Attending [facility] [id number] [facility] 2023-10-24 00:00:00 2023-10-24 00:00:00 Orders Only Doctor Unassigned, [place] [id number] [facility] 2023-04-23 13:15:00 2023-04-23 13:15:00 Outpatient R DAI HICKS [facility] [id number] [facility] 2023-04-02 14:30:00 2023-04-02 14:30:00 Outpatient R IVY MONTEJO [facility] [id number] [facility] 2023-03-31 00:00:00 2023-03-31 00:00:00 Patient Secure Ena Dalton [facility] 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 WORKER [facility] [id number] 4.2.7.2.686 [id number] 107 [id number] [facility] 2023-03-02 00:00:00 2023-03-02 00:00:00 Case Management Ena Dalton [facility] 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 WORKER [facility] & CHILD [facility] 1.2.840.114 350.1.13.10 4.2.7.2.686 [id number] 107 [id number] [facility] 2023-03-02 00:00:00 2023-03-02 00:00:00 Telephone Dai Hicks 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 1.2.840.114 350.1.13.10 4.2.7.2.686 [id number] 107 [id number] [facility] 2023-03-02 00:00:00 2023-03-02 00:00:00 Patient Secure Ena Dalton [facility] 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 WORKER [facility] & CHILD [facility] 1.2.840.114 350.1.13.10 4.2.7.2.686 [id number] 107 [id number] [facility] 2023-02-28 07:45:00 2023-02-28 08:57:53 Outpatient ENA CONTEH [facility] [id number] [facility] 2023-02-28 07:45:00 2023-02-28 08:57:53 Office Visit Ena Dalton [facility] 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 WORKER [facility] 1..840.114 350.1.13.10 4.2.7.2.686 [id number] 107 [id number] [facility] 2023-02-28 00:00:00 2023-02-28 00:00:00 Orders Only Doctor Unassigned, [place] [facility] 1..840.114 350.1.13.10 4.2.7.2.686 [id number] [facility] 2023-01-30 14:45:00 2023-01-30 14:45:00 Outpatient ENA CONTEH [facility] [id number] [facility] 2022-12-19 14:30:00 2022-12-19 14:30:00 Outpatient VELIA BAINS [facility] [id number] [facility] 2022-11-16 00:00:00 2022-11-16 00:00:00 Outpatient Jose Raul [facility] [id number] [facility] 2022-11-16 00:00:00 2022-11-16 00:00:00 TK GrayBC: [address] [address] , Ph. [phone] MM[facility] - OBGYN [id number] [facility] 2022-11-02 15:26:00 2022-11-02 15:26:00 Outpatient ERICH CHARLES [facility] [id number] [id number] 2022-11-02 00:00:00 2022-11-02 00:00:00 BISHOP Gray-BC: 600 [facility] [address] [address] , Ph. [phone] [facility] - OBGYN [id number] [facility] 2022-10-14 00:00:00 2022-10-14 00:00:00 Orders Only Doctor Unassigned, [place] [facility] 1.2.840.114 350.1.13.10 4.2.7.2.686 [id number] [facility] 2022-10-12 00:00:00 2022-10-12 00:00:00 Outpatient White_M MMG MMG [id number] [facility] 2022-10-12 00:00:00 2022-10-12 00:00:00 Outpatient White_M MMG [facility] [id number] [facility] 2022-10-12 00:00:00 2022-10-12 00:00:00 TK GrayBC: [address] [address] , Ph. [phone] [facility] - [facility]BGYN [id number] [facility] 2022-10-06 09:00:00 2022-10-06 09:00:00 Outpatient DAI BAKER [facility] [id number] [facility] 2022-09-12 15:04:00 2022-09-12 15:04:00 Outpatient JEANNE CHARLESGHAN [facility] [id number] 2022-09-12 00:00:00 2022-09-12 00:00:00 Outpatient White_M MMG MMG [id number] [facility] 2022-09-12 00:00:00 2022-09-12 00:00:00 BISHOP Gray-BC: 600 [facility] [address] [address] , Ph. [phone] [facility] - OBGYN [id number] [facility] 2022-07-07 14:45:00 2022-07-07 15:27:14 Office Visit Dai Hicks [facility] 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 WORKER [facility] & CHILD [facility] 1.2.840.114 350.1.13.10 4.2.7.2.686 [id number] 107 [id number] [facility] 2022-07-07 14:45:00 2022-07-07 15:27:14 Outpatient R DAI HICKS [facility] [id number] [facility] 2022-07-07 14:45:00 2022-07-07 14:45:00 Outpatient R DAI HICKS [facility] [id number] [facility] 2022-07-07 08:15:00 2022-07-07 08:15:00 Outpatient R RICHARD AMAYA [facility] [id number] [facility] 2022-06-27 00:00:00 2022-06-27 00:00:00 Patient Secure Msg Dai Hicks [facility] 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 WORKER [facility] CHILD [facility] 1.2.840.114 350.1.13.10 4.2.7.2.686 [id number] 107 [id number] [facility] 2022-06-21 10:30:00 2022-06-21 11:49:35 Office Visit Dai Hicks [facility] 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 WORKER [facility] CHILD [facility] 1.2.840.114 350.1.13.10 4.2.7.2.686 [id number] 107 [id number] [facility] 2022-06-21 10:30:00 2022-06-21 11:49:35 Outpatient R DAI HICKS [facility] [id number] [facility] 2022-06-21 10:30:00 2022-06-21 10:30:00 Outpatient R DAI HICKS [facility] [id number] [facility] 2022-06-19 10:15:00 2022-06-19 10:15:00 Outpatient R DAI HICKS [facility] [id number] [facility] 2022-06-16 14:00:00 2022-06-16 14:00:00 Outpatient R DAI HICKS [facility] [id number] [facility] 2022-06-16 00:00:00 2022-06-16 00:00:00 Telephone Dai Hicks [facility] 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 WORKER [facility] CHILD [facility] .840.114 350.1.13.10 4.2.7.2.686 [id number] 107 [id number] [facility] 2022-04-25 08:15:00 2022-04-25 08:15:00 Outpatient R DAI HICKS [facility] [id number] [facility] 2022-04-18 14:15:00 2022-04-18 14:15:00 Outpatient R DAI HICKS [facility] [id number] [facility] 2022-04-14 00:00:00 2022-04-14 00:00:00 Telephone Dai Hicks [facility] 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 WORKER [facility] ..114 350.1.13.10 4.2.7.2.686 [id number] 107 [id number] [facility] 2022-04-14 00:00:00 2022-04-14 00:00:00 Patient Secure Msg Dai Hicks [facility] 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 WORKER [facility] CHILD [facility] .84.114 350.1.13.10 4.2.7.2.686 [id number] 107 [id number] [facility] 2022-04-04 00:00:00 2022-04-04 00:00:00 Patient Secure Msg Dai Hicks [facility] 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 WORKER [facility] CHILD [facility] .0.114 350.1.13.10 4.2.7.2.686 [id number] 107 [id number] [facility] 2022-04-03 00:00:00 2022-04-03 00:00:00 Patient Secure Msg Dai Hicks Beatriz [facility] 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 WORKER [facility] CHILD [facility] 1.2.840.114 350.1.13.10 4.2.7.2.686 [id number] 107 [id number] [facility] 2022-04-03 00:00:00 2022-04-03 00:00:00 Telephone Dai Hicks Beatriz [facility] 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 WORKER [facility]ILD [facility] 1.2840.114 350.1.13.10 4.2.7.2.686 [id number] 107 [id number] [facility] 2022-03-31 16:00:00 2022-03-31 16:29:52 Outpatient R DAI HICKS [facility] [id number] [facility] 2022-03-31 16:00:00 2022-03-31 16:29:52 Office Visit [place] Dai Henderson 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 1.20.114 350.1.13.10 4.2.7.2.686 [id number] 107 [id number] [facility] 2022-03-31 00:00:00 2022-03-31 00:00:00 Orders Only Doctor Unassigned, [place] [facility] 1.2840.114 350.1.13.10 4.2.7.2.686 [id number] [facility] 2022-01-30 13:00:00 2022-01-30 13:00:00 Outpatient R KARLA BURRELL [facility] [id number] [facility] 2021-11-12 00:00:00 2021-11-12 00:00:00 Patient Secure Msg Doctor Unassigned, [place] [facility] 1.2.114 350.1.13.10 4.2.7.2.686 [id number] [facility] 2021-11-11 14:00:00 2021-11-11 14:00:00 [facility] [id number] [facility] 2021-11-11 14:00:00 2021-11-11 14:00:00 Outpatient R DAI HICKS [facility] [id number] [facility] 2021-10-28 13:45:00 2021-10-28 14:59:43 Outpatient R DAI HICKS [facility] [id number] [facility] 2021-10-28 13:45:00 2021-10-28 14:59:43 Office Visit Dai Hicks [facility] 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 WORKER [facility] CHILD [facility] 1..840.114 350.1.13.10 4.2.7.2.686 [id number] 107 [id number] [facility] 2021-05-25 00:00:00 2021-05-25 00:00:00 Telephone Dai Hicks [facility] 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 WORKER [facility] CHILD [facility] 1..840.114 350.1.13.10 4.2.7.2.686 [id number] 107 [id number] [facility] 2021-05-24 15:15:00 2021-05-24 15:15:00 Outpatient R DAI HICKS [facility] [id number] [facility] 2021-05-11 16:00:00 2021-05-11 16:00:00 Outpatient R DAI HICKS [facility] [id number] [facility] 2021-04-26 00:00:00 2021-04-26 00:00:00 Telephone Dai Hicks [facility] 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 WORKER [facility] CHILD [facility] ..840.114 350.1.13.10 4.2.7.2.686 [id number] 107 [id number] [facility] 2021-04-14 13:45:00 2021-04-14 13:45:00 Outpatient P [facility] [id number] [facility] 2021-04-05 15:45:00 2021-04-05 15:45:00 Outpatient R DAI HICKS [facility] [id number] [facility] 2021-04-04 00:00:00 2021-04-04 00:00:00 Patient Secure Msg Doctor Unassigned, [place] [facility] 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 WORKER [facility] 1..114 350.1.13.10 4.2.7.2.686 [id number] 107 [id number] [facility] 2021-03-30 00:00:00 2021-03-30 00:00:00 Patient Secure Msg Doctor Unassigned, [place] [facility] 1.0.114 350.1.13.10 4.2.7.2.686 [id number] [facility] 2021-03-25 00:00:00 2021-03-25 00:00:00 Telephone Dai Hicks [facility] 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 WORKER [facility] CHILD [facility] 1..114 350.1.13.10 4.2.7.2.686 [id number] 107 [id number] [facility] 2021-03-25 00:00:00 2021-03-25 00:00:00 Telephone Dai Hicks [facility] 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 WORKER [facility]ILD [facility] 1.2.114 350.1.13.10 4.2.7.2.686 [id number] 107 [id number] 2021-03-24 10:30:23 2021-03-24 10:47:41 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, [facility] Miranda Varela [facility] 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 WORKER [facility] CHILD [facility] 1.2.840.114 350.1.13.10 4.2.7.2.686 [id number] 107 [id number] [facility] 2021-03-24 10:30:00 2021-03-24 10:30:00 Outpatient R [facility] [id number] [facility] 2021-03-24 00:00:00 2021-03-24 00:00:00 Patient Secure Msg Doctor Unassigned, [place] [facility] 1.2840.114 350.1.13.10 4.2.7.2.686 [id number] [facility] 2021-03-24 00:00:00 2021-03-24 00:00:00 Telephone Dai Hicks [facility] 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 WORKER [facility]ILD [facility] 1.2.840.114 350.1.13.10 4.2.7.2.686 [id number] 107 [id number] [facility] 2021-03-23 00:00:00 2021-03-23 00:00:00 Patient Secure Msg Richard Amaya R [facility] 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 WORKER [facility]ILD [facility] 1.2840.114 350.1.13.10 4.2.7.2.686 [id number] 107 [id number] [facility] 2021-03-22 15:10:35 2021-03-22 15:25:35 Initial Visit Dai Hicks [facility] 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 WORKER [facility] 1.2840.114 350.1.13.10 4.2.7.2.686 [id number] 107 [id number] [facility] 2021-03-22 15:00:00 2021-03-22 15:00:00 Outpatient R DAI HICKS [facility] [id number] [facility] 2021-03-22 00:00:00 2021-03-22 00:00:00 Orders Only Doctor Unassigned, [place] [facility] 1.2840.114 350.1.13.10 4.2.7.2.686 [id number] [facility] 2021-02-23 13:08:12 2021-02-23 13:35:01 Office Visit Richard Amaya [facility] 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 WORKER [facility]ILD [facility] 1.2840.114 350.1.13.10 4.2.7.2.686 [id number] 107 [id number] [facility] 2021-02-23 13:00:00 2021-02-23 13:00:00 [facility] [id number] 2021-02-16 09:30:00 2021-02-16 09:30:00 Outpatient R [facility] [id number] [facility] 2021-02-16 09:30:00 2021-02-16 09:30:00 Outpatient R JACY AMAYAROSA [facility] [id number] [facility] 2021-02-14 00:00:00 2021-02-14 00:00:00 Patient Secure Msg Doctor Unassigned, [place] [facility] 1.20.114 350.1.13.10 4.2.7.2.686 [id number] 107 [id number] [facility] 2021-02-14 00:00:00 2021-02-14 00:00:00 Patient Secure Msg Doctor Unassigned, [place] [facility] 1.2840.114 350.1.13.10 4.2.7.2.686 [id number] [facility] 2021-02-02 10:05:24 2021-02-02 11:11:24 Routine Visit Hemant Amayadeangelo [facility] 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 WORKER [facility] CHILD [facility] 1.2840.114 350.1.13.10 4.2.7.2.686 [id number] 107 [id number] [facility] 2021-02-02 10:00:00 2021-02-02 10:00:00 Outpatient Kinsey RICHARD AMAYA [facility] [id number] [facility] 2021-02-02 00:00:00 2021-02-02 00:00:00 Orders Only Doctor Unassigned, [place] [facility] 1.114 350.1.13.10 4.2.7.2.686 [id number] [facility] 2021-02-01 14:45:00 2021-02-01 14:45:00 Outpatient Kinsey RICHARD AMAYA [facility] [id number] [facility] 2021-01-31 13:45:00 2021-01-31 13:45:[address] [facility] [id number] [facility] 2021-01-11 00:00:00 2021-01-11 00:00:00 Patient Outreach Pardeep Amaro [facility] 1.114 350.1.13.10 4.2.7.2.686 [id number] [facility] 2021-01-10 14:26:11 2021-01-10 15:14:43 Initial Visit Richard Amaya [facility] 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 WORK[facility] 1.114 350.1.13.10 4.2.7.2.686 [id number] 107 [id number] [facility] 2021-01-10 14:00:00 2021-01-10 14:00:00 [facility]patient Kin[facility] [id number] [facility] 2021-01-10 00:00:00 2021-01-10 00:00:00 Orders Only Doctor Unassigned, [place] [facility] 1.114 350.1.13.10 4.2.7.2.686 [id number] [facility] 2021-01-03 14:00:00 2021-01-03 14:00:00 Outpatient R [facility] [id number] [facility] 2021-01-03 12:45:00 2021-01-03 12:45:00 Outpatient R RICHARD AMAYA [facility] [id number] [facility] 2020-12-28 13:15:00 2020-12-28 13:15:00 Outpatient R RICHARD AMAYA [facility] [id number] [facility] 2020-11-29 00:00:00 2020-11-29 00:00:00 Telephone Richard Amaya [facility] 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 WORKER [facility] MATERNAL & CHILD HEALTH [facility] 1..840.114 350.1.13.10 4.2.7.2.686 [id number] 107 [id number] [facility] 2020-11-24 14:45:48 2020-11-24 15:26:28 Office Visit Richard Amaya Kinsey [facility] 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 WORKER [facility] MATERNAL & CHILD [facility] 1.840.114 350.1.13.10 4.2.7.2.686 [id number] 107 [id number] [facility] 2020-11-24 14:45:00 2020-11-24 14:45:00 Outpatient JACY GRAVESKENIAElkin [facility] [id number] [facility] 2020-11-24 00:00:00 2020-11-24 00:00:00 Orders Only Doctor Unassigned, [place] [facility] .84.114 350.1.13.10 4.2.7.2.686 [id number] [facility] 2020-09-14 13:30:00 2020-09-14 13:30:00 Outpatient R JACY AMAYAROSA [facility] [id number] [facility] 2020-09-13 00:00:00 2020-09-13 00:00:00 Telephone Richard Amaya [facility] 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 WORKER [facility] MATERNAL & CHILD HEALTH [facility] 1..840.114 350.1.13.10 4.2.7.2.686 [id number] 107 [id number] [facility] 2020-09-09 15:00:00 2020-09-09 15:00:00 Outpatient R RICHARD AMAYA [facility] [id number] [facility] 2020-09-01 12:45:00 2020-09-01 12:45:00 Outpatient R AMAYARICHARD [facility] [id number] [facility] 2020-09-01 12:45:00 2020-09-01 12:45:00 Outpatient R AMAYARICHARD [facility] [id number] [facility] 2020-07-29 09:45:00 2020-07-29 09:45:00 Outpatient R AKINSIPE, DAI [facility] [id number] [facility] 2020-07-29 09:45:00 2020-07-29 09:45:00 Outpatient R AKINSIPE, DAI [facility] [id number] [facility] 2020-06-08 10:45:00 2020-06-08 10:45:00 Outpatient R AKINSIPE, DAI [facility] [id number] [facility] 2020-06-08 10:45:00 2020-06-08 10:45:00 Outpatient R AKINSIPE, DAI [facility] [id number] [facility] 2020-04-13 11:00:57 2020-04-13 11:44:15 Office Visit Richard Amaya [facility] 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 WORKER [facility] MATERNAL & CHILD [facility] 1..840.114 350.1.13.10 4.2.7.2.686 [id number] 107 [id number] [facility] 2020-04-13 11:00:00 2020-04-13 11:00:00 Outpatient R RICHARD AMAYA [facility] [id number] [facility] 2020-04-13 09:45:00 2020-04-13 09:45:00 Outpatient MIRANDA KNOWLES [facility] [id number] [facility] 2020-03-09 10:30:00 2020-03-09 10:30:00 Outpatient RICHARD GRAVES [facility] [id number] [facility] 2020-03-04 00:00:00 2020-03-04 00:00:00 Telephone Miranda Varela [facility] 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 WORKER [facility] MATERNAL & CHILD [facility] 1..840.114 350.1.13.10 4.2.7.2.686 [id number] 107 [id number] [facility] 2020-01-12 15:30:00 2020-01-12 15:30:00 Outpatient MIRANDA KNOWLES [facility] [id number] [facility] 2020-01-07 00:00:00 2020-01-07 00:00:00 Patient Secure Msg Doctor Unassigned, [place] [facility] 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 WORKER [facility] CHILD [facility] 1..840.114 350.1.13.10 4.2.7.2.686 [id number] 107 [id number] [facility] 2020-01-05 13:19:07 2020-01-05 14:07:46 Office Visit aDi Hicks [facility] 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 WORKER [facility] CHILD [facility] 1..840.114 350.1.13.10 4.2.7.2.686 [id number] 107 [id number] [facility] 2020-01-05 13:15:00 2020-01-05 13:15:00 Outpatient DAI BAKER [facility] [id number] [facility] 2019-12-12 08:00:00 2019-12-12 08:00:00 Outpatient RICHARD GRAVES [facility] [id number] [facility] 2019-12-11 00:00:00 2019-12-11 00:00:00 Patient Secure Msg Miranda Varela [facility] 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 WORKER [facility] MATERNAL & CHILD [facility] 1.2.840.114 350.1.13.10 4.2.7.2.686 [id number] 107 [id number] [facility] 2019-12-08 11:15:24 2019-12-08 11:43:05 Office Visit Richard Amaya [facility] 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 WORKER [facility] CHILD [facility] 1.2.840.114 350.1.13.10 4.2.7.2.686 [id number] 107 [id number] [facility] 2019-12-08 00:00:00 2019-12-08 00:00:00 Orders Only Doctor Unassigned, [place] [facility] 1.2.840.114 350.1.13.10 4.2.7.2.686 [id number] [facility] 2019-11-28 00:00:00 2019-11-28 00:00:00 Telephone Miranda Varela [facility] 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 WORKER [facility] CHILD [facility] 1.2.840.114 350.1.13.10 4.2.7.2.686 [id number] 107 [id number] [facility] 2019-11-25 08:40:20 2019-11-25 09:30:23 Office Visit Miranda Varela [facility] 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 WORKER [facility] CHILD [facility] 1.2.840.114 350.1.13.10 4.2.7.2.686 [id number] 107 [id number] [facility] 2019-11-25 00:00:00 2019-11-25 00:00:00 Telephone Miranda Varela [facility] 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 WORKER [facility] & CHILD [facility] [id number] [id number] [id number] [id number] [facility] 2019-11-05 00:00:00 2019-11-05 00:00:00 Telephone Dai Hicks [facility] 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 WORKER [facility] & CHILD [facility] 1.284.114 [id number] [id number] [id number] [facility] 2019-06-17 12:53:35 2019-06-17 13:48:17 Office Visit Miranda Varela Sue [facility] 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 WORKER [facility] & CHILD [facility] 1.2.114 [id number] [id number] [id number] [facility] 2019-06-17 00:00:00 2019-06-17 00:00:00 Orders Only Doctor Unassigned, [place] [facility] 1.2114 [id number] [id number] [id number] [facility] Results Test Description Test Time Test Comments Results Result Co [facility] - [id number] 14:01:32* Test Item Value Reference Range Interpretation Comme nts Leukocytes (test code = Leukocytes) Small Nitrite (test code = Nitrite) negative Urobilinogen (test code = Urobilinogen) .2 Protein (test code = Protein) 30 pH (test code = pH) 5.0 Blood (test code = Blood) Moderate Specific [place] (test code = Specific [place]) 1.025 Ketone (test code = Ketone) Large Bilirubin (test code = Bilirubin) Negative Glucose (test code = Glucose) Negative Appearance (test code = Appearance) Clear Color (test code = Color) [facility] [id number] 17:06:00* Test Item Value Reference Range Interpretation Comme nts HCG quantitative (test code = HCG quantitative) 8750.0 mIU/mL 0-5 [facility]dipstick[facility] panel - [id number] 14:17:46* Test Item Value Reference Range Interpretation Comme nts Leukocytes (test code = Leukocytes) Small Nitrite (test code = Nitrite) negative Urobilinogen (test code = Urobilinogen) .2 Protein (test code = Protein) Negative pH (test code = pH) 7.0 Blood (test code = Blood) Non-Hemolyzed: Trace Specific [place] (test code = Specific [place]) 1.015 Ketone (test code = Ketone) Negative Bilirubin (test code = Bilirubin) Negative Glucose (test code = Glucose) Negative Appearance (test code = Appearance) Clear Color (test code = Color) Yellow [facility] - [id number] 14:17:46* Test Item Value Reference Range Interpretation Comme nts Leukocytes (test code = Leukocytes) Small Nitrite (test code = Nitrite) negative Urobilinogen (test code = Urobilinogen) .2 Protein (test code = Protein) Negative pH (test code = pH) 7.0 Blood (test code = Blood) Non-Hemolyzed: Trace Specific [place] (test code = Specific [place]) 1.015 Ketone (test code = Ketone) Negative Bilirubin (test code = Bilirubin) Negative Glucose (test code = Glucose) Negative Appearance (test code = Appearance) Clear Color (test code = Color) Yellow [facility] [id number] 18:09:00* Test Item Value Reference Range Interpretation Comme [facility] HCG quantitative (test code = HCG quantitative) 1146.0 mIU/mL 0-5 H [facility] [id number] 18:09:00* Test Item Value Reference Range Interpretation Comme [facility] HCG quantitative (test code = HCG quantitative) 1146.0 mIU/mL 0-5 H [facility] [id number] 11:06:00* Test Item Value Reference Range Interpretation Comme nts HCG quantitative (test code = HCG quantitative) 466.6 mIU/mL 0-5 [facility] fwbmindhqhst9309-63-73 11:06:00* Test Item Value Reference Range Interpretation Comme [facility] HCG quantitative (test code = HCG quantitative) 466.6 mIU/mL 0-5 [facility] [id number] 09:36:27* Test Item Value Reference Range Interpretation Comme nts Test (test code = Test) positive [facility] [id number] 09:36:27* Test Item Value Reference Range Interpretation Comme nts Test (test code = Test) positive [facility] macro (dipstick) panel - [id number] 08:33:52* Test Item Value Reference Range Interpretation Comme nts Leukocytes (test code = Leukocytes) Negative Nitrite (test code = Nitrite) negative Urobilinogen (test code = Urobilinogen) .2 Protein (test code = Protein) Negative pH (test code = pH) 6.0 Blood (test code = Blood) Non-Hemolyzed: Trace Specific Capitola (test code = Specific Capitola) 1.025 Ketone (test code = Ketone) Negative Bilirubin (test code = Bilirubin) Negative Glucose (test code = Glucose) Negative Appearance (test code = Appearance) Clear Color (test code = Color) Yellow [facility] macro (dipstick) panel - [id number] 08:33:52* Test Item Value Reference Range Interpretation Comme nts Leukocytes (test code = Leukocytes) Negative Nitrite (test code = Nitrite) negative Urobilinogen (test code = Urobilinogen) .2 Protein (test code = Protein) Negative pH (test code = pH) 6.0 Blood (test code = Blood) Non-Hemolyzed: Trace Specific Capitola (test code = Specific Capitola) 1.025 Ketone (test code = Ketone) Negative Bilirubin (test code = Bilirubin) Negative Glucose (test code = Glucose) Negative Appearance (test code = Appearance) Clear Color (test code = Color) Yellow [facility] [id number] 16:22:00* Test Item Value Reference Range Interpretation Comme nts POCT PREG (test code = 1605) Negative On board controls acceptable with C Line (test code = 3574) Yes POCT PREG LOT # (test code = 3575) POCT PREG TEST DATE ( test code = 3576) Lab Interpretation (test cod e = 03180-7) Normal [facility] hospital Urinalysis W Specific [id number] 16:19:00* Test Item Value Reference Range Interpretation [...] Cloudy Lab Interpretation (test cod e = 66971-7) Abnormal [facility] acute hospital [id number] 19:24:00* Test Item Value Reference Range Interpretation Comme nts POCT PREG (test code = 1605) Negative On board controls acceptable with C Line (test code = 3574) Yes POCT PREG LOT # (test code = 3575) POCT PREG TEST DATE (test code = 3576) CECIL (test code = CECIL) accurate developme nt and interpretation of all internal controls Lab Interpretation (test code = 39425-0) Normal [facility] acute hospital [id number] 19:24:00* Test Item Value Reference Range Interpretation Comme nts POCT PREG (test code = 1605) Negative On board controls acceptable with C Line (test code = 3574) Yes POCT PREG LOT # (test code = 3575) POCT PREG TEST DATE (test code = 3576) CECIL (test code = CECIL) accurate developme nt and interpretation of all internal controls Lab Interpretation (test code = 41859-2) Normal [facility] acute hospital Urinalysis W Specific Isndjar5583-26-60 19:20:00* Test Item Value Reference Range Interpretation [...] internal controls Lab Interpretation (test code = 73868-8) [facility] W Specific [id number] 19:20:00* Test Item Value Reference Range Interpretation [...] internal controls Lab Interpretation (test code = 74157-6) Normal [facility]ILIS IGG/[id number] 15:05:59* Test Item Value Reference Range Interpretation Comme nts Syphilis IgG/IgM (test code = 76372-4) Non-reactive Non-reactive CECIL (test code = CECIL) Non-reactive - No serologic evidence of T. pallidum infection. Cannot exclude incubating or early syphilis. Submit a second specimen in 2-4 weeks if syphilis is clinically suspected. Equivocal - Further testing to follow. Reactive - Further testing to follow. Lab Interpretation (test code = 06112-9) Normal [facility] ONLY - SYPHILIS IGG/[id number] 15:05:59* Test Item Value Reference Range Interpretation Comme nts Syphilis IgG/IgM (test code = 41442-4) Non-reactive Non-reactive CECIL (test code = CECIL) Non-reactive - No serologic evidence of T. pallidum infection. Cannot exclude incubating or early syphilis. Submit a second specimen in 2-4 weeks if syphilis is clinically suspected. Equivocal - Further testing to follow. Reactive - Further testing to follow. Lab Interpretation (test code = 07104-7) Normal [facility] ONLY - SYPHILIS IGG/[id number] 15:05:59* Test Item Value Reference Range Interpretation Comme nts Syphilis IgG/IgM (test code = 30075-4) Non-reactive Non-reactive CECIL (test code = CECIL) Non-reactive - No serologic evidence of T. pallidum infection. Cannot exclude incubating or early syphilis. Submit a second specimen in 2-4 weeks if syphilis is clinically suspected. Equivocal - Further testing to follow. Reactive - Further testing to follow. Lab Interpretation (test code = 93747-0) Normal [facility] 1/2 AG-AB WITH [id number] 06:58:27* Test Item Value Reference Range Interpretation Comme nts HIV Semi-quantitative (test code = 10673-7) 0.12 Negative CECIL (test code = CECIL) Non-reactive for HIV-1 antigen and HIV-1/HIV-2 antibodies. ?No laboratory evidence of HIV infection. ?Repeat in 2-4 weeks if acute HIV infection is suspected. [facility] 1/2 AG-AB WITH [id number] 06:58:27* Test Item Value Reference Range Interpretation Comme nts HIV Semi-quantitative (test code = 35769-8) 0.12 Negative CECIL (test code = CECIL) Non-reactive for HIV-1 antigen and HIV-1/HIV-2 antibodies. ?No laboratory evidence of HIV infection. ?Repeat in 2-4 weeks if acute HIV infection is suspected. [facility] 1/2 AG-AB WITH [id number] 06:58:27* Test Item Value Reference Range Interpretation Comme nts HIV Semi-quantitative (test code = 33101-6) 0.12 Negative CECIL (test code = CECIL) Non-reactive for HIV-1 antigen and HIV-1/HIV-2 antibodies. ?No laboratory evidence of HIV infection. ?Repeat in 2-4 weeks if acute HIV infection is suspected. [facility] [id number] 05:29:42* Test Item Value Reference Range Interpretation Comme nts HCV Ab (test code = 97286-0) Negative HCV Semi-Quantitative (test code = 89122-3) 0.01 [facility] [id number] 05:29:42* Test Item Value Reference Range Interpretation Comme nts HCV Ab (test code = 21190-9) Negative HCV Semi-Quantitative (test code = 95899-1) 0.01 [facility] [id number] 05:29:42* Test Item Value Reference Range Interpretation Comme nts HCV Ab (test code = 11803-8) Negative HCV Semi-Quantitative (test code = 87493-0) 0.01 [facility] HospitalGLYCOSYLATED HEMOGLOBIN (A1C)2023-03-01 05:25:25* Test Item Value Reference Range Interpretation Comme nts HGB A1C (test code = 4548-4) 5.3 % 4.0-5.7 CECIL (test code = CECIL) Reference RangesNormal: <5.7%Prediabetes: 5.7 - 6.4%Diabetes: > 6.5% Lab Interpretation (test code = 32648-3) Normal [facility] (A1C)2023-03-01 05:25:25* Test Item Value Reference Range Interpretation Comme nts HGB A1C (test code = 4548-4) 5.3 % 4.0-5.7 CECIL (test code = CECIL) Reference RangesNormal: <5.7%Prediabetes: 5.7 - 6.4%Diabetes: > 6.5% Lab Interpretation (test code = 28283-8) Normal [facility]IN (A1C)2023-03-01 05:25:25* Test Item Value Reference Range Interpretation Comme nts HGB A1C (test code = 4548-4) 5.3 % 4.0-5.7 CECIL (test code = CECIL) Reference RangesNormal: <5.7%Prediabetes: 5.7 - 6.4%Diabetes: > 6.5% Lab Interpretation (test code = 79988-2) Normal [facility] WITH [id number] 05:04:15* Test Item Value Reference Range Interpretation [...] 32.5 g/dL 31.6-35.1 RDW-SD (test code = 92746-8) 43.6 fL 39.0-49.9 RDW-CV (test code = 788-0) 12.8 % 12.0-15.5 PLT (test code = 777-3) 326 See_Comment [Automated messa ge] The system which generated this result transmitted reference range: 166 - 358 10*3/?L. The reference range was not used to interpret this result as normal/abnormal. MPV (test code = 04359-7) 10.1 fL 9.5-12.9 NRBC/100 WBC (test code = 6397139561) 0.0 See_Comment [Automated [employer] ssage] The system which generated this result transmitted reference range: 0.0 - 10.0 /100 WBCs. The reference range was not used to interpret this result as normal/abnormal. NRBC x10^3 (test code = 4595290586) See_Comment [Automated messa ge] The system which generated this result transmitted reference range: 10*3/?L. The reference range was not used to interpret this result as normal/abnormal. GRAN MAT (NEUT) % (test code = 770-8) 59.5 % IMM GRAN % (test code = 7351220437) 0.10 % LYMPH % (test code = 736-9) 31.2 % MONO % (test code = 5905-5) 5.9 % EOS % (test code = 713-8) 2.8 % BASO % (test code = 706-2) 0.5 % GRAN MAT x10^3(ANC) (test code = 4413614889) 5.43 10*3/uL 1.88-7.09 IMM GRAN x10^3 (test code = 1069819023) 0.00-0.06 LYMPH x10^3 (test code = 731-0) 2.85 10*3/uL 1.32-3.29 MONO x10^3 (test code = 742-7) 0.54 10*3/uL 0.33-0.92 EOS x10^3 (test code = 711-2) 0.26 10*3/uL 0.03-0.39 BASO x10^3 (test code = 704-7) 0.05 10*3/uL 0.01-0.07 Lab Interpretation (test code = 74186-7) Abnormal [facility] WITH [id number] 05:04:15* Test Item Value Reference Range Interpretation [...] 32.5 g/dL 31.6-35.1 RDW-SD (test code = 54980-6) 43.6 fL 39.0-49.9 RDW-CV (test code = 788-0) 12.8 % 12.0-15.5 PLT (test code = 777-3) 326 See_Comment [Automated messa ge] The system which generated this result transmitted reference range: 166 - 358 10*3/?L. The reference range was not used to interpret this result as normal/abnormal. MPV (test code = 55425-9) 10.1 fL 9.5-12.9 NRBC/100 WBC (test code = 0839623797) 0.0 See_Comment [Automated me ssage] The system which generated this result transmitted reference range: 0.0 - 10.0 /100 WBCs. The reference range was not used to interpret this result as normal/abnormal. NRBC x10^3 (test code = 7687388535) See_Comment [Automated messa ge] The system which generated this result transmitted reference range: 10*3/?L. The reference range was not used to interpret this result as normal/abnormal. GRAN MAT (NEUT) % (test code = 770-8) 59.5 % IMM GRAN % (test code = 6273221154) 0.10 % LYMPH % (test code = 736-9) 31.2 % MONO % (test code = 5905-5) 5.9 % EOS % (test code = 713-8) 2.8 % BASO % (test code = 706-2) 0.5 % GRAN MAT x10^3(ANC) (test code = 7666709029) 5.43 10*3/uL 1.88-7.09 IMM GRAN x10^3 (test code = 3536911932) 0.00-0.06 LYMPH x10^3 (test code = 731-0) 2.85 10*3/uL 1.32-3.29 MONO x10^3 (test code = 742-7) 0.54 10*3/uL 0.33-0.92 EOS x10^3 (test code = 711-2) 0.26 10*3/uL 0.03-0.39 BASO x10^3 (test code = 704-7) 0.05 10*3/uL 0.01-0.07 Lab Interpretation (test code = 74103-3) Abnormal [facility] WITH [id number] 05:04:15* Test Item Value Reference Range Interpretation [...] 32.5 g/dL 31.6-35.1 RDW-SD (test code = 63092-0) 43.6 fL 39.0-49.9 RDW-CV (test code = 788-0) 12.8 % 12.0-15.5 PLT (test code = 777-3) 326 See_Comment [Automated messa ge] The system which generated this result transmitted reference range: 166 - 358 10*3/?L. The reference range was not used to interpret this result as normal/abnormal. MPV (test code = 57912-8) 10.1 fL 9.5-12.9 NRBC/100 WBC (test code = 2290539920) 0.0 See_Comment [Automated me ssage] The system which generated this result transmitted reference range: 0.0 - 10.0 /100 WBCs. The reference range was not used to interpret this result as normal/abnormal. NRBC x10^3 (test code = 9491161280) See_Comment [Automated messa ge] The system which generated this result transmitted reference range: 10*3/?L. The reference range was not used to interpret this result as normal/abnormal. GRAN MAT (NEUT) % (test code = 770-8) 59.5 % IMM GRAN % (test code = 3755783579) 0.10 % LYMPH % (test code = 736-9) 31.2 % MONO % (test code = 5905-5) 5.9 % EOS % (test code = 713-8) 2.8 % BASO % (test code = 706-2) 0.5 % GRAN MAT x10^3(ANC) (test code = 1581254691) 5.43 10*3/uL 1.88-7.09 IMM GRAN x10^3 (test code = 5690753934) 0.00-0.06 LYMPH x10^3 (test code = 731-0) 2.85 10*3/uL 1.32-3.29 MONO x10^3 (test code = 742-7) 0.54 10*3/uL 0.33-0.92 EOS x10^3 (test code = 711-2) 0.26 10*3/uL 0.03-0.39 BASO x10^3 (test code = 704-7) 0.05 10*3/uL 0.01-0.07 Lab Interpretation (test code = 06616-9) [facility]normal [facility], [id number] 14:10:00 * Test Item Value Reference Range [...] used to interpret this result as normal/abnormal. [facility]Beta 2 glycoprotein 1 IgG and IgM panel - [id number] 19:14:00* Test Item Value Reference Range Interpretation Comme nts beta 2 glyco,IgG (test code = beta 2 glyco,IgG) <9 0-20 beta 2 glyco,IgA (test code = beta 2 glyco,IgA) <9 0-25 beta 2 glycoprot,IgM (test c ode = beta 2 glycoprot,IgM) <9 0-32 [facility] HospitalCardiolip[facility] IgG and IgM panel - [id number] 19:14:00 * Test Item Value Reference Range Interpretation Comme nts anticardiolipin Ab IgG (test code = anticardiolipin Ab IgG) <9 0-14 anticardiolipin Ab IgM (test code = anticardiolipin Ab IgM) <9 0-12 [facility] HospitalPap w/rfx HPV if ASCUS+leukorrhea panel rfx vance [...] (test code = vance - swab) normal [facility] HospitalUrinalysis macro (dipstick) panel - [id number] 09:40:09* Test Item Value Reference Range Interpretation Comme nts Leukocytes (test code = Leukocytes) Trace Nitrite (test code = Nitrite) negative Urobilinogen (test code = Urobilinogen) .2 Protein (test code = Protein) Negative pH (test code = pH) 5.5 Blood (test code = Blood) Negative Specific Capitola (test code = Specific Capitola) 1.030 Ketone (test code = Ketone) Negative Bilirubin (test code = Bilirubin) Small Glucose (test code = Glucose) Negative Appearance (test code = Appearance) Cloudy Color (test code = Color) Yellow [facility] HospitalUrinalysis macro (dipstick) panel - [id number] 09:40:09* Test Item Value Reference Range Interpretation Comme nts Leukocytes (test code = Leukocytes) Trace Nitrite (test code = Nitrite) negative Urobilinogen (test code = Urobilinogen) .2 Protein (test code = Protein) Negative pH (test code = pH) 5.5 Blood (test code = Blood) Negative Specific Capitola (test code = Specific Capitola) 1.030 Ketone (test code = Ketone) Negative Bilirubin (test code = Bilirubin) Small Glucose (test code = Glucose) Negative Appearance (test code = Appearance) Cloudy Color (test code = Color) Yellow [facility] - cancer history assessment [id number] 08:33:00 * Test Item Value Reference Range Interpretation Comme nts [facility] [place] - cancer history assessment result (test code = [facility] [place] - cancer history assessment result) does not meet criteria [facility] - cancer history assessment [id number] 08:33:00 * Test Item Value Reference Range Interpretation Comme nts [facility] [place] - cancer history assessment result (test code = [facility] [place] - cancer history assessment result) does not meet criteria [facility] + TV, DNA, urine/[id number] 00:00:00* Test Item Value Reference Range Interpretation Comme nts vance - swab (test code = vance - swab) normal gardnerella (test code = gardnerella) abnormal A CT/NG (test code = CT/NG) normal trichomonas vaginalis addon - swab (test code = trichomonas vaginalis addon - swab) normal [facility] Hospital[facility] macro (dipstick) panel - [id number] 14:03:06* Test Item Value Reference Range Interpretation Comme nts Leukocytes (test code = Leukocytes) Negative Nitrite (test code = Nitrite) negative Urobilinogen (test code = Urobilinogen) .2 Protein (test code = Protein) Negative pH (test code = pH) 6.0 Blood (test code = Blood) Negative Specific Capitola (test code = Specific Capitola) 1.030 Ketone (test code = Ketone) Negative Bilirubin (test code = Bilirubin) Negative Glucose (test code = Glucose) Negative Appearance (test code = Appearance) Clear Color (test code = Color) Yellow [facility] HospitalUrinalysis macro (dipstick) panel - [id number] 14:03:06* Test Item Value Reference Range Interpretation Comme nts Leukocytes (test code = Leukocytes) Negative Nitrite (test code = Nitrite) negative Urobilinogen (test code = Urobilinogen) .2 Protein (test code = Protein) Negative pH (test code = pH) 6.0 Blood (test code = Blood) Negative Specific Capitola (test code = Specific [place]itola) 1.030 Ketone (test code = Ketone) Negative Bilirubin (test code = Bilirubin) Negative Glucose (test code = Glucose) Negative Appearance (test code = Appearance) Clear Color (test code = Color) Yellow [facility]PO[facility] [id number] 20:02:00* Test Item Value Reference Range Interpretation Comme nts POCT PREG (test code = 1605) Negative On board controls acceptable with C Line (test code = 3574) Yes POCT PREG LOT # (test code = 3575) POCT PREG TEST DATE ( test code = 3576) [facility] Notes Date/Time Note Provider Source 2023-10-24 13:00:00 [id number] v8KU1+8Bk6yLV+s+2T+ma49643-25-83X11:00:00A ddended by: LIUDMILA JAMES on: 10/25/2023 03:51 PMModules accepted: Orders [id number] [id number]:51:06Addendum [id number] for patient axkh46734-0ToawEVEUEIYJPSFSyjuckfew C-CDA narrative textUT68 Ramirez [id number] VALLEY HOSPITALWMPZLKKITCTSCDLB3644-16-09M17:51:061.2.840 .465325.1.72.3.15|1.2.840.971578.1.13.104. [id number] [facility]"
[2024-02-06] MEDS ORDERED: MORPHINE 4 MG/ML SYR ONE (12:00)
[2024-02-06] MEDS ORDERED: NA CHLORIDE 0.9% 1,000 ML ONE (12:00)
[2024-02-06] MEDS ORDERED: ONDANSETRON 4 MG/2 ML VIAL ONE (12:00)
[2024-02-06 12:17] LABS: Absolute Eosinophils 0.1 K/uL (0-0.5); Absolute Lymphocytes (CBC) 1.8 K/uL (0.7-4.9); Absolute Monocytes 0.7 K/uL (0.1-1.3); Absolute Neutrophil 8.3 K/uL (1.8-8.0); Basophils % 0.3 % (0-1.3); Eosinophils % 1.4 % (0-4.4); Hematocrit 39.9 % (36.0-45.0); Hemoglobin 13.2 g/dL (12.0-15.0); Lymphocytes % 16.3 % (15.3-44.8); MCH 29.6 pg (27.0-35.0); MCHC 32.9 g/dL (32.0-36.0); MCV 89.9 fL (80-100); MPV 7.8 fL (7.6-11.3); Monocytes % 6.4 % (3.3-12.3); Neutrophils % 75.6 % (41.7-73.7); Platelets 310 thou/uL (152-406); RBC Red Blood Cell Count 4.44 M/uL (3.86-4.86); Red Cell Distribution Width 13.5 % (12.1-15.2)
[2024-02-06 12:23] LABS: Specific Gravity 1.011 (1.005-1.030); Sqamous Epithelial <5 /HPF (None Seen); Urine Bacteria <20 /HPF (<20); Urine Bilirubin NEGATIVE (Negative); Urine Blood 3+ (OVER) (Negative); Urine Clarity Extremely Turbid (Clear); Urine Color Brown (Yellow); Urine Culture Reflex Order NOT NEEDED; Urine Glucose NEGATIVE (Negative); Urine Ketones NEGATIVE (Negative); Urine Microscopic Reflex YN ORDER UMIC; Urine Nitrite NEGATIVE (Negative); Urine Protein 1+ (Negative); Urine RBC >50 /HPF (None Seen); Urine Urobilinogen Normal (Normal); Urine WBC <5 /HPF (<5); Urine pH 5.5 (5.0-7.0)
[2024-02-06 12:31] LABS: Albumin 3.6 g/dL (3.4-5.0); Anion Gap 6.9 mEq/L (5.0-15.0); Bilirubin Total 0.4 mg/dL (0.2-1.0); Globulin 3.5 g/dL (2.3-3.5); Potassium 3.9 mEq/L (3.5-5.1); Protein, Total 7.1 g/dL (6.4-8.2)
--- NOTE | 2024-02-06 12:54 | RAD REPORT ---
EXAM DESCRIPTION: CTAbdomen Pelvis W Contrast - 02/06/2024 12:39 pm CLINICAL HISTORY: Abdominal pain. abd pain, recent ectopic s/p L fallopian removal COMPARISON: Abdomen Pelvis W Contrast dated 01/11/2024; Abdomen Pelvis W Contrast dated 05/01/2023 ; Transvaginal OB dated 01/17/2024 TECHNIQUE: Biphasic CT imaging of the abdomen and pelvis was performed with 100 ml non-ionic IV cont rast. All CT scans are performed using dose optimization technique as appropriate and may include automated exposure control or mA/KV adjustment according to patient size. FINDINGS: The lung bases are clear. The liver, spleen, pancreas, adrenal glands and kidneys are within normal limits. Small fat containin g umbilical hernia. No bowel obstruction, free air, free fluid or abscess. The appendix is normal. No evidence of signi ficant lymphadenopathy. No suspicious bony findings. IMPRESSION: No acute intra-abdominal or pelvic finding.
--- NOTE | 2024-02-06 13:39 | RAD REPORT ---
EXAM DESCRIPTION: US - Transvaginal Study Probe - 02/06/2024 1:23 pm CLINICAL HISTORY: R side abd pain, recent L sided salping, ectopic Pelvic pain. COMPARISON: No comparisons FINDINGS: The uterus is normal in size, shape and echotexture. The uterus measures 7.4 x 5.8 x 4.3 c m. The endometrial stripe measures 12 mm, normal. Both ovaries are normal in size, shape and echotexture. The right ovary measures 2.2 x 1.7 x 1.5 cm. The left ovary measures 2.5 x 2.0 x 1.6 cm. No ovarian or parovarian lesions. No adnexal masses. Normal Doppler blood flow was demonstrated to both ovaries. No significant pelvic ascites. IMPRESSION: Unremarkable study.
--- NOTE | 2024-02-06 13:53 | ER ---
Nurse's Notes [facility] Name: Beena Garcia Age: 28 yrs Sex: Female : 1995 Arrival Date: 02/06/2024 Time: 10:51 Bed 12 Private MD: Diagnosis: Abdominal pain, Generalized Presentation: 02/05 11:30 Chief complaint: Patient states: had an ectopic , Sunday had left tube ko1 removed, this morning had "excruciating pain on the right side" to the point of throwing up. Coronavirus screen: At this time, the client does not indicate any symptoms associated with coronavirus-19. Ebola Screen: No symptoms or risks identified at this time. Initial Sepsis Screen: Does the patient meet any 2 criteria? No. Patient's initial sepsis screen is negative. Does the patient have a suspected source of infection? No. Patient's initial sepsis screen is negative. Risk Assessment: Do you want to hurt yourself or someone else? Patient reports no desire to harm self or others. Onset of symptoms was February 06, 2024. 11:30 Method Of Arrival: Wheelchair ko1 11:30 Acuity: LETTY 3 ko1 Triage Assessment: 11:32 General: Appears in no apparent distress. Behavior is calm, cooperative, appropriate ko1 for age. Pain: Complains of pain in right lower quadrant. GI: Reports nausea, vomiting. Historical: - Allergies: 11:32 Codeine (Hives); ko1 - PMHx: 11:32 miscarriage; UTI; ko1 - Immunization history:: Adult Immunizations up to date. - Infectious Disease History:: Denies. - Social history:: Smoking status: Patient denies any tobacco usage or history of. Screenin:09 [facility] ED Fall Risk Assessment (Adult) History of falling in the last 3 months, as6 including since admission No falls in past 3 months (0 pts) Confusion or Disorientation No (0 pts) Intoxicated or Sedated No (0 pts) Impaired Gait No (0 pts) Mobility Assist Device Used No (0 pt) Altered Elimination No (0 pt) Score/Fall Risk Level 0 - 2 = Low Risk Oriented to surroundings, Maintained a safe environment, Educated pt \\T\\ family on fall prevention, incl call for assistance when getting out of bed, Assessed \\T\\ reinforced patient's understanding of fall precautions, Hourly rounding (assess needs \\T\\ fall precautionary measures) done. Abuse screen: Denies threats or abuse. Denies injuries from another. Nutritional screening: No deficits noted. Tuberculosis screening: No symptoms or risk factors identified. Assessment: 12:07 General: Appears in no apparent distress. uncomfortable, Behavior is calm, cooperative. as6 Pain: Complains of pain in right lower quadrant Quality of pain is described as crampy, sharp. Neuro: Level of Consciousness is awake, alert, obeys commands, Oriented to person, place, time, situation. Cardiovascular: Capillary refill < 3 seconds Patient's skin is warm and dry. Respiratory: Respiratory effort is even, unlabored, Respiratory pattern is regular, symmetrical. GI: Reports lower abdominal pain, nausea, vomiting. : Reports vaginal bleeding that is moderate flow. EENT: No deficits noted. No signs and/or symptoms were reported regarding the EENT system. Derm: Skin is intact, is healthy with good turgor. Musculoskeletal: Circulation, motion, and sensation intact. 13:35 Reassessment: Patient appears in no apparent distress at this time. Patient and/or as6 family updated on plan of care and expected duration. Pain level reassessed. Patient is alert, oriented x 3, equal unlabored respirations, skin warm/dry/pink. Patient states feeling better. Patient states symptoms have improved. Vital Signs: 11:30 BP 111 / 80; Pulse 76; Resp 14; Temp 97.9; Pulse Ox 100% on R/A; ko1 13:35 BP 107 / 73; Pulse 68; Resp 15 S; Pulse Ox 99% on R/A; as6 ED Course: 10:53 Patient arrived in ED. im 11:32 Chris Mckinney MD is Attending Physician. ec2 11:32 Triage completed. ko1 11:32 Arm band placed on right wrist. Patient placed in waiting room, in a wheelchair, ko1 Patient notified of wait time. 11:48 Kennedy Ceballos RN is Primary Nurse. as6 11:58 Inserted saline lock: 20 gauge in right antecubital area, using aseptic technique. as6 Blood collected. 12:07 CBC with Diff Sent. as6 12:07 CMP Sent. as6 12:07 Lipase Sent. as6 12:07 Urinalysis w/ reflexes Sent. as6 12:09 Bed in low position. Call light in reach. Client placed on continuous cardiac and pulse as6 oximetry monitoring. NIBP monitoring applied. Warm blanket given. 12:41 CT Abd/Pelvis - IV Contrast Only In Process Unspecified. EDMS 13:25 Transvaginal Study Probe In Process Unspecified. EDMS 14:01 Provided Education on: follow up. as6 14:01 No provider procedures requiring assistance completed. IV discontinued, intact, as6 bleeding controlled, No redness/swelling at site. Pressure dressing applied. Administered Medications: 12:07 Drug: NS 0.9% IV 1000 ml IV at 1 bolus Per protocol; 1000 mL bolus Route: IV; Rate: 1 as6 bolus; Site: right antecubital; 14:00 Follow up: Response: No adverse reaction; IV Status: Completed infusion; IV Intake: as6 1000ml 12:07 Drug: Ondansetron IVP 4 mg IVP once; over 2 minutes Route: IVP; Site: right antecubital;as6 14:01 Follow up: Response: No adverse reaction as6 12:07 Drug: morphine IVP or IV 4 mg IVP once over 4 mins Route: IVP; Infused Over: 4 mins; as6 Site: right antecubital; 14:01 Follow up: Response: No adverse reaction as6 Medication: 12:10 VIS not applicable for this client. as6 Intake: 14:00 IV: 1000ml; Total: 1000ml. as6 Outcome: 13:52 Discharge ordered by . ec2 14:01 Discharged to home ambulatory, with family, as6 14:01 Condition: stable 14:01 Discharge instructions given to patient, Instructed on discharge instructions, follow up and referral plans. medication usage, Demonstrated understanding of instructions, follow-up care, medications, Prescriptions given X 1, 14:01 Patient left the ED. as6 Signatures: Dispatcher [employer] Kennedy Gibson RN RN as6 Crystal Monroe RN RN ko1 Annette Basilio Edwin, MD MD ec2
--- NOTE | 2024-02-06 13:53 | EDPHYS ---
Physician Documentation [facility] Name: Beena Garcia Age: 28 yrs Sex: Female : 1995 Arrival Date: 02/06/2024 Time: 10:51 Bed 12 Private MD: ED Physician Chris Mckinney HPI: 02/05 11:43 This 28 yrs old Female presents to ER via Wheelchair with complaints of ec2 Abdominal Pain, Vomiting, Post Surgery on 02/01/24. 11:43 Patient arrives today for right-sided abdominal pain. Patient reports that she was ec2 diagnosed with an ectopic , had a salpingectomy 5 days ago. Patient complaining of right-sided abdominal pain. Patient reports associated nausea and vomiting. Patient reports some diarrhea as well. Patient had a salpingectomy on the left side. No nausea or vomiting, no fevers or chills.. Historical: - Allergies: 11:32 Codeine (Hives); ko1 - PMHx: 11:32 miscarriage; UTI; ko1 - Immunization history:: Adult Immunizations up to date. - Infectious Disease History:: Denies. - Social history:: Smoking status: Patient denies any tobacco usage or history of. ROS: 11:43 Constitutional: as per hpi ec2 Exam: 11:43 Constitutional: GEN: NAD Head: atraumatic Eyes: EOMI Ears: External ears are ec2 normal. CV: regular rate LUNGS: no respiratory distress ABD: non-distended, soft, generally tender, not guarding, not rigid, surgical sites are well-healing SKIN: no evidence of rashes MSK: no evidence of trauma NEURO: moves all extremities equally Vital Signs: 11:30 BP 111 / 80; Pulse 76; Resp 14; Temp 97.9; Pulse Ox 100% on R/A; ko1 13:35 BP 107 / 73; Pulse 68; Resp 15 S; Pulse Ox 99% on R/A; as6 MDM: 11:42 Patient medically screened. ec2 11:43 Data reviewed: vital signs. ED course: Patient arrives today for evaluation of ec2 abdominal pain in setting of recent ectopic status post salpingectomy. Examination remarkable for reproducible TTP in the general abdomen, will obtain lab work, CT imaging, ultrasound, treat the patient's pain and reassess. Evaluate for postoperative complication. Additionally evaluate for UTI, gallbladder pathology, appendix pathology. 13:12 ED course: CBC reassuring. Metabolic profile is reassuring. Urine is pertinent for leuk ec2 esterase as well as RBCs. Lipase within normal ranges. CT imaging shows no acute intra-abdominal process. Pending ultrasound. . 13:52 ED course: On reassessment patient is well-appearing in no acute distress. Will ec2 discharge home, prescribed Tylenol with codeine and have patient follow-up with PCP. Return precautions given.. 02/05 11:43 Order name: CBC with Diff; Complete Time: 13:12 ec2 02/05 11:43 Order name: CMP; Complete Time: 13:12 ec2 02/05 11:43 Order name: Lipase; Complete Time: 13:12 ec2 02/05 11:43 Order name: Urinalysis w/ reflexes; Complete Time: 13:12 ec2 02/05 11:43 Order name: CT Abd/Pelvis - IV Contrast Only; Complete Time: 13:12 ec2 02/05 12:52 Order name: Transvaginal Study Probe; Complete Time: 13:47 EDMS 02/05 11:43 Order name: IV Saline Lock; Complete Time: 12:07 ec2 02/05 11:43 Order name: Labs collected and sent; Complete Time: 12:07 ec2 Administered Medications: 12:07 Drug: NS 0.9% IV 1000 ml IV at 1 bolus Per protocol; 1000 mL bolus Route: IV; Rate: 1 as6 bolus; Site: right antecubital; 14:00 Follow up: Response: No adverse reaction; IV Status: Completed infusion; IV Intake: as6 1000ml 12:07 Drug: Ondansetron IVP 4 mg IVP once; over 2 minutes Route: IVP; Site: right antecubital;as6 14:01 Follow up: Response: No adverse reaction as6 12:07 Drug: morphine IVP or IV 4 mg IVP once over 4 mins Route: IVP; Infused Over: 4 mins; as6 Site: right antecubital; 14:01 Follow up: Response: No adverse reaction as6 Disposition Summary: 02/06/24 13:52 Discharge Ordered Notes: Location: Home ec2 Condition: Stable ec2 Diagnosis - Abdominal pain, Generalized ec2 Followup: ec2 - With: Private Physician - When: - Reason: Re-evaluation by your physician Discharge Instructions: - Discharge Summary Sheet ec2 - Abdominal Pain, Adult ec2 Forms: - Medication Reconciliation Form ec2 - Thank You Letter ec2 - Antibiotic Education ec2 - Prescription Opioid Use ec2 - Patient Portal Instructions ec2 - Leadership Thank You Letter ec2 Prescriptions: - methocarbamol 500 mg Oral tablet - take 3 tablets ORAL route 4 times per day for 2 days; 30 tablet; Refills: 0, ec2 Product Selection Permitted Signatures: Dispatcher [employer] Kennedy Gibson RN RN as6 Crystal Monroe RN RN ko1 Chris Mckinney MD MD ec2 Corrections: (The following items were deleted from the chart) 11:44 11:44 Abdomen Pelvis W Con+CT.RAD.BRZ ordered. EDMS EDMS 12:52 12:40 Transvaginal Ob+US.RAD.BRZ ordered. EDMS EDMS
[2024-02-06 20:38] VITALS: BP 107/73; TEMP 97.9; O2SAT 99
== END 2024-02-06 14:01 | disposition home or self-care (01) ==
LOC: ER 10:51
DX: R10.84 Generalized abdominal pain (principal); R11.2 Nausea with vomiting, unspecified; Z90.721 Acquired absence of ovaries, unilateral; Z88.5 Allergy status to narcotic agent
CPT/HCPCS: 85025; 81001; 36415; 83690; 80053; 74177; 76830; Q9967; J2405; J7030

== ENCOUNTER 2024-04-08 16:01 | Emergency (ER) | payer OTHER ==
--- OUTSIDE RECORDS SUMMARY | 2024-04-08 16:08 | XMS REPORT | Continuity of Care Document ---
Author Name Unknown Address [address] [facility] [place] [address] [facility] thconnect Address [address] [facility] [address] [place] [address] Care Team Providers Care Power Press Tender Name Role Phone DAI HICKS Primary Care Physician Unav ailable WALDEMAR HERNANDEZ Attending Clinician Unavailyarelis Blunt Attending Clinician Unavailable JANE TITUS Attending Clinician Unavailable ENA DALTON Attending Clinician Unavailelkin ble UNKNOWN, ATTENDING Attending Clinician Unavailab LIUDMILA Dave Attending Clinician Unavailable Liudmila James PA-C Attending Clinician [phone] Unknown, Attending Attending Clinician Unavailab le Doctor Unassigned, [place] Attending Clinician U navailable DAI HICKS Attending Clinician Unavail able IVY MONTEJO Attending Clinician UnavailEna Hawkins CNM Attending Clinician [phone] Kurt Dai TRAN Attending Clinician + VELIA WEBER Attending Clinician Unavailable RICHARD AMAYA Attending Clinician Unavailab KARLA Damian Attending Clinician UnavailKaushik Gerber-Rmchp Attending Clinician Unavailable Miranda Marroquin Attending Clinician [phone] Richard Machuca Attending Clinician Unava ilPardeep Yañez DO Attending Clinician [phone] MIRANDA VARELA Attending Clinician Unavailabl e Ariela_Yessi Admitting Clinician Unavailable Payers Payer Name Policy Type Policy Number Effective Date Expirati on Date Source [facility] (MEDICAID HMO) [id number] 2016 00:00:00 VANDANA JAMIL [id number] 2022 00:00:00 MEDICAID PENDING PENDING 2021 00:00:00 [facility] [id number] 2017 00:00:00 Problems Condition Name Condition Details Condition Category Status Onset Date Resolution Date Last Treatment Date Treating Clinician Comments Source of left fallopian tube of Left Fallopian Tube Problem [facility] High risk due to recurrent loss High Risk Due to Recurrent Loss Problem Active 01-22 00:00: 00 [facility] History of abnormal cervical Pap smear History of abnormal cervical Pap smear Disease Active 03-03 00:00: 00 Overview: Formattin g of this note might be different from the original. 2016 Negative PAP [id number] Negative PAP [id number] Negative PAP +HPV, negative [id number] Negative PAP and [id number] Negative PAP and [id number] pending [facility] Other general counseling and advice for contracept rishi management Other general counseling and advice for contracept rishi management Disease Active 03-31 00:00: 00 [facility] Cyst of right ovary Cyst of right ovary Disease Active 04-13 00:00: 00 [facility] Over weight Over weight Disease Active 2016-10 00:00: 00 [facility] Allergies, Adverse Reactions, Alerts Allergy Name Allergy Type Status Severity Reaction(s) Onset Date Inactive Date Treating Clinician Comments Source Codeine Propensi ty to adverse reaction s Active Hives 02-27 00:00: 00 [facility] CODEINE DRUG INGREDI Active Hives 02-27 00:00: 00 [facility] Codeine Allergy to substanc e Active [facility] Social History Social Habit Start Date Stop Date Quantity Comments Source ASSERTION [facility] intake 2023-11-13 00:00:00 2023-11-13 00:00:00 Current drinker of alcohol (finding) [facility] Exposure to SARS-CoV-2 (event) 2023-02-18 00:00:00 2023-02-28 06:11:00 Not sure [facility] Alcohol Comment 2023-02-28 00:00:00 2023-02-28 00:00:00 social [facility] History of Social function 2023-02-28 00:00:00 2023-02-28 00:00:00 [facility] Tobacco use and exposure 2022-06-21 00:00:00 2022-06-21 00:00:00 Smokeless tobacco non-user [facility] Sex Assigned At 1995 00:00:00 1995 00:00:00 [facility] Smoking Status Start Date Stop Date Source Never smoked tobacco [facility] Medications Ordered Medication Name Filled Medication Name Start Date Stop Date Current Medication? Ordering Clinician Indication Dosage Frequency Signature (SIG) Comments Components Source cefdinir 300 mg capsule 01-10 00:00: 00 Yes [id number] 300mg Take 1 capsule by mouth every 12 (twelve) hours. [facility] fluconazole (DIFLUCAN) 150 mg tablet 10-25 00:00: 00 Yes [id number] 150mg Take 1 tablet by mouth every 72 (seventy-t wo) hours. [facility] Nitrofurant oin&Nit. Macrocryst (MACROBID) 100 mg capsule 10-24 00:00: 00 Yes [id number] 100mg Take 1 capsule by mouth in the morning and 1 capsule in the evening. [facility] fluconazole (DIFLUCAN) 150 mg tablet 03-02 00:00: 00 03-03 04:59 :00 No [id number] 150mg Take 1 tablet by mouth once now for 1 dose. Take second tablet in 1 week [facility] phentermine HCl (PHENTERMIN E ORAL) 02-28 08:20: 44 Yes Take by mouth. [facility] norgestimat e-ethinyl estradioL (ORTHO TRI-CYCLEN, 28,) 0.18/0.215/ 0.25 mg-35 mcg (28) tablet 9-16 00:00: 00 02-28 00:00 :00 No [id number] 1{tbl} Take 1 tablet by mouth in the morning. [facility] Nitrofurant oin&Nit. Macrocryst (MACROBID) 100 mg capsule 6-13 00:00: 00 02-28 00:00 :00 No [id number] 100mg Take 1 capsule by mouth 2 (two) times daily. [facility] PNV 67-iron ps-folate no.1-dha (VITAFOL ULTRA) 29 mg iron- 1 mg-200 mg Cap 03-22 00:00: 00 10-28 00:00 :00 No [id number] 1{each} Take 1 Each by mouth daily. [facility] norgestimat e-ethinyl estradioL 0.18/0.215/ 0.25 mg-25 mcg tablet 5-05 00:00: 00 10-28 00:00 :00 No [id number] 1{tbl} Take 1 tablet by mouth daily. [facility] ibuprofen 800 mg tablet Take 1 tablet every 6 hours by oral route as needed. ibuprofen 800 mg tablet Take 1 tablet every 6 hours by oral route as needed. No 1 Q6H ibuprofen 800 mg tablet Take 1 tablet every 6 hours by oral route as needed. [facility] Diflucan 100 mg tablet Take 1 tablet every day by oral route for 3 days. Diflucan 100 mg tablet Take 1 tablet every day by oral route for 3 days. No 1 Q1D Diflucan 100 mg tablet Take 1 tablet every day by oral route for 3 days. [facility] Immunizations Ordered Immunization Name Filled Immunization Name Date Status Comments Source HPV9 2019-09-10 00:00:00 Completed [facility] HPV9 2019-09-10 00:00:00 Completed [facility] HPV9 2019-09-10 00:00:00 Completed [facility] HPV9 2019-09-10 00:00:00 Completed [facility] HPV9 2019-09-10 00:00:00 Completed [facility] HPV9 2019-09-10 00:00:00 Completed [facility] HPV9 2019-09-10 00:00:00 Completed [facility] HPV9 2019-09-10 00:00:00 Completed [facility] HPV9 2019-09-10 00:00:00 Completed [facility] HPV9 2019-06-17 00:00:00 Completed [facility] HPV9 2019-06-17 00:00:00 Completed [facility] HPV9 2019-06-17 00:00:00 Completed [facility] HPV9 2019-06-17 00:00:00 Completed [facility] HPV9 2019-06-17 00:00:00 Completed [facility] HPV9 2019-06-17 00:00:00 Completed [facility] HPV9 2019-06-17 00:00:00 Completed [facility] HPV9 2019-06-17 00:00:00 Completed [facility] HPV9 2019-06-17 00:00:00 Completed [facility] Influenza Virus Vaccine Quad IM 3+ YRS 2016-09-06 00:00:00 Completed [facility] Influenza Virus Vaccine Quad IM 3+ YRS 2016-09-06 00:00:00 Completed [facility] Influenza Virus Vaccine Quad IM 3+ YRS 2016-09-06 00:00:00 Completed [facility] Influenza Virus Vaccine Quad IM 3+ YRS 2016-09-06 00:00:00 Completed [facility] Influenza Virus Vaccine Quad IM 3+ YRS 2016-09-06 00:00:00 Completed [facility] Influenza Virus Vaccine Quad IM 3+ YRS 2016-09-06 00:00:00 Completed [facility] Influenza Virus Vaccine Quad IM 3+ YRS 2016-09-06 00:00:00 Completed [facility] Influenza Virus Vaccine Quad IM 3+ YRS 2016-09-06 00:00:00 Completed [facility] Influenza Virus Vaccine Quad IM 3+ YRS 2016-09-06 00:00:00 Completed [facility] TDAP 2009-10-22 00:00:00 Completed [facility] TDAP 2009-10-22 00:00:00 Completed [facility] TDAP 2009-10-22 00:00:00 Completed [facility] TDAP 2009-10-22 00:00:00 Completed [facility] TDAP 2009-10-22 00:00:00 Completed [facility] TDAP 2009-10-22 00:00:00 Completed [facility] TDAP 2009-10-22 00:00:00 Completed [facility] TDAP 2009-10-22 00:00:00 Completed [facility] TDAP 2009-10-22 00:00:00 Completed [facility] HPV9 Unknown Completed [facility] TDAP Unknown Completed [facility] Influenza Virus Vaccine Quad IM 3+ YRS Unknown Completed [facility] HPV9 Unknown Completed [facility] HPV9 Unknown Completed [facility] TDAP Unknown Completed [facility] Influenza Virus Vaccine Quad IM 3+ YRS Unknown Completed [facility] HPV9 Unknown Completed [facility] HPV9 Unknown Completed [facility] TDAP Unknown Completed [facility] Influenza Virus Vaccine Quad IM 3+ YRS Unknown Completed [facility] HPV9 Unknown Completed [facility] HPV9 Unknown Completed [facility] TDAP Unknown Completed [facility] Influenza Virus Vaccine Quad IM 3+ YRS Unknown Completed [facility] HPV9 Unknown Completed [facility] HPV9 Unknown Completed [facility] TDAP Unknown Completed [facility] Influenza Virus Vaccine Quad IM 3+ YRS Unknown Completed [facility] HPV9 Unknown Completed [facility] HPV9 Unknown Completed [facility] TDAP Unknown Completed [facility] Influenza Virus Vaccine Quad IM 3+ YRS Unknown Completed [facility] HPV9 Unknown Completed [facility] HPV9 Unknown Completed [facility] TDAP Unknown Completed [facility] Influenza Virus Vaccine Quad IM 3+ YRS Unknown Completed [facility] HPV9 Unknown Completed [facility] HPV9 Unknown Completed [facility] TDAP Unknown Completed [facility] Influenza Virus Vaccine Quad IM 3+ YRS Unknown Completed [facility] HPV9 Unknown Completed [facility] HPV9 Unknown Completed [facility] TDAP Unknown Completed [facility] Influenza Virus Vaccine Quad IM 3+ YRS Unknown Completed [facility] HPV9 Unknown Completed [facility] HPV9 Unknown Completed [facility] TDAP Unknown Completed [facility] Influenza Virus Vaccine Quad IM 3+ YRS Unknown Completed [facility] HPV9 Unknown Completed [facility] HPV9 Unknown Completed [facility] TDAP Unknown Completed [facility] Influenza Virus Vaccine Quad IM 3+ YRS Unknown Completed [facility] HPV9 Unknown Completed [facility] HPV9 Unknown Completed [facility] TDAP Unknown Completed [facility] Influenza Virus Vaccine Quad IM 3+ YRS Unknown Completed [facility] HPV9 Unknown Completed [facility] HPV9 Unknown Completed [facility] TDAP Unknown Completed [facility] Influenza Virus Vaccine Quad IM 3+ YRS Unknown Completed [facility] HPV9 Unknown Completed [facility] HPV9 Unknown Completed [facility] TDAP Unknown Completed [facility] Influenza Virus Vaccine Quad IM 3+ YRS Unknown Completed [facility] HPV9 Unknown Completed [facility] HPV9 Unknown Completed [facility] TDAP Unknown Completed [facility] Influenza Virus Vaccine Quad IM 3+ YRS Unknown Completed [facility] HPV9 Unknown Completed [facility] HPV9 Unknown Completed [facility] TDAP Unknown Completed [facility] Influenza Virus Vaccine Quad IM 3+ YRS Unknown Completed [facility] HPV9 Unknown Completed [facility] HPV9 Unknown Completed [facility] TDAP Unknown Completed [facility] Influenza Virus Vaccine Quad IM 3+ YRS Unknown Completed [facility] HPV9 Unknown Completed [facility] Vital Signs Vital Name Observation Time Observation Value Comments S ource BP Diastolic 2024-02-15 00:00:00 71 mm[Hg] [facility] BMI (Body Mass Index) 2024-02-15 00:00:00 30.6 kg/m2 [facility] Height 2024-02-15 00:00:00 60 [in_i] [facility] Body Weight 2024-02-15 00:00:00 156.9 [lb_av] [facility] BP Systolic 2024-02-15 00:00:00 108 mm[Hg] [facility] BP Systolic 2024-02-01 00:00:00 113 mm[Hg] [facility] Body Weight 2024-02-01 00:00:00 157.3 [lb_av] [facility] BMI (Body Mass Index) 2024-02-01 00:00:00 30.7 kg/m2 [facility] BP Diastolic 2024-02-01 00:00:00 81 mm[Hg] [facility] Height 2024-02-01 00:00:00 60 [in_i] [facility] BP Systolic 2024-01-31 00:00:00 127 mm[Hg] [facility] Body Weight 2024-01-31 00:00:00 159.2 [lb_av] [facility] BMI (Body Mass Index) 2024-01-31 00:00:00 31.1 kg/m2 [facility] Height 2024-01-31 00:00:00 60 [in_i] [facility] BP Diastolic 2024-01-31 00:00:00 75 mm[Hg] [facility] Systolic blood pressure 2024-01-11 16:12:00 116 mm[Hg] [facility] Diastolic blood pressure 2024-01-11 16:12:00 79 mm[Hg] [facility] Heart rate 2024-01-11 16:12:00 85 /min [facility] Body temperature 2024-01-11 16:12:00 36.61 Shelly [facility] Respiratory rate 2024-01-11 16:12:00 18 /min [facility] Body height 2024-01-11 16:12:00 154.9 cm [facility] Body weight 2024-01-11 16:12:00 71.532 kg [facility] BMI 2024-01-11 16:12:00 29.80 kg/m2 [facility] Oxygen saturation in Arterial blood by Pulse oximetry 2024-01-11 16:12:00 99 /min [facility] Systolic blood pressure 2023-10-24 19:18:00 119 mm[Hg] [facility] Diastolic blood pressure 2023-10-24 19:18:00 75 mm[Hg] [facility] Heart rate 2023-10-24 19:18:00 98 /min [facility] Body temperature 2023-10-24 19:18:00 37.17 Shelly [facility] Respiratory rate 2023-10-24 19:18:00 16 /min [facility] Body weight 2023-10-24 19:18:00 70.308 kg [facility] BMI 2023-10-24 19:18:00 31.31 kg/m2 [facility] Oxygen saturation in Arterial blood by Pulse oximetry 2023-10-24 19:18:00 97 /min [facility] Systolic blood pressure 2023-02-28 13:12:00 123 mm[Hg] [facility] Diastolic blood pressure 2023-02-28 13:12:00 88 mm[Hg] [facility] Heart rate 2023-02-28 13:12:00 91 /min [facility] Body temperature 2023-02-28 13:12:00 36.83 Shelly [facility] Respiratory rate 2023-02-28 13:12:00 18 /min [facility] Body height 2023-02-28 13:12:00 149.9 cm [facility] Body weight 2023-02-28 13:12:00 66.395 kg [facility] BMI 2023-02-28 13:12:00 29.56 kg/m2 [facility] BP Diastolic 2022-11-02 00:00:00 72 mm[Hg] [facility] Height 2022-11-02 00:00:00 64 [in_i] [facility] BMI (Body Mass Index) 2022-11-02 00:00:00 25 kg/m2 [facility] BP Systolic 2022-11-02 00:00:00 108 mm[Hg] [facility] Body Weight 2022-11-02 00:00:00 145.4 [lb_av] [facility] BP Diastolic 2022-10-12 00:00:00 83 mm[Hg] [facility] Height 2022-10-12 00:00:00 64 [in_i] [facility] BMI (Body Mass Index) 2022-10-12 00:00:00 24.6 kg/m2 [facility] BP Systolic 2022-10-12 00:00:00 114 mm[Hg] [facility] Body Weight 2022-10-12 00:00:00 143.3 [lb_av] [facility] BP Diastolic 2022-09-12 00:00:00 79 mm[Hg] [facility] Height 2022-09-12 00:00:00 64 [in_i] [facility] BMI (Body Mass Index) 2022-09-12 00:00:00 25.6 kg/m2 [facility] BP Systolic 2022-09-12 00:00:00 119 mm[Hg] [facility] Body Weight 2022-09-12 00:00:00 148.9 [lb_av] [facility] Systolic blood pressure 2022-07-07 20:00:00 107 mm[Hg] [facility] Diastolic blood pressure 2022-07-07 20:00:00 67 mm[Hg] [facility] Heart rate 2022-07-07 20:00:00 74 /min [facility] Body temperature 2022-07-07 20:00:00 36.44 Shelly [facility] Respiratory rate 2022-07-07 20:00:00 18 /min [facility] Body height 2022-07-07 20:00:00 149.9 cm [facility] Body weight 2022-07-07 20:00:00 64.921 kg [facility] BMI 2022-07-07 20:00:00 28.91 kg/m2 [facility] Procedures Procedure Date / Time Performed Performing Clinician Source ULTRASOUND, UTERUS REAL TIME WITH IMAGE DOCUMENTAITON, TRANSVAGINAL 2024-01-31 00:00:00 [facility] ULTRASOUND, UTERUS REAL TIME WITH IMAGE DOCUMENTAITON, TRANSVAGINAL 2024-01-23 00:00:00 [facility] POCT URINALYSIS 2024-01-11 00:00:00 Liudmila James Un [facility] POCT TEST 2024-01-11 00:00:00 Gwendolyn James [facility] POCT TEST 2023-10-24 19:23:00 Gwendolyn James y [facility] GALV ONLY - VAGINAL PATHOGENS BY NUCLEIC ACID TESTING 2023-10-24 19:20:00 Liudmila James [facility] POCT URINALYSIS 2023-10-24 19:19:00 Liudmila James Un [facility] ASSIGNMENT OF BENEFITS 2023-10-24 19:09:13 Docto r Unassigned, [place] [facility] CBC WITH DIFF 2023-02-28 13:55:00 Ena Dalton [facility] GLYCOSYLATED HEMOGLOBIN (A1C) 2023-02-28 13:55:00 Ena Dalton [facility] HCV ANTIBODY 2023-02-28 13:55:00 Ena Dalton U [facility] GC & CHLAMYDIA AMPLIFIED ASSAY 2023-02-28 13:55:00 Ena Dalton [facility] GALV ONLY - VAGINAL PATHOGENS BY NUCLEIC ACID TESTING 2023-02-28 13:55:00 Ena Dalton [facility] HIV 1/2 AG-AB WITH REFLEX 2023-02-28 13:55:00 Ena Dalton [facility] SYPHILIS IGG/IGM 2023-02-28 13:55:00 Ena Dalton [facility] ASSIGNMENT OF BENEFITS 2023-02-28 12:47:02 Docto r Unassigned, [place] [facility], transvaginal 2022-11-16 00:00:00 [facility] REFERRAL- REQUEST/RESPONSE 2022-10-14 06:01:00 Doctor Unassigned, [place] [facility], transvaginal 2022-09-12 00:00:00 [facility] POCT TEST 2022-07-07 20:02:00 Meet Hicks [facility] Salpingectomy, Laparoscopic (Surg) [facility] Plan of Care Planned Activity Planned Date Details Comments Source Diagnostic Test Pending 2024-02-15 00:00:00 urinalysis, dipstick [code = urinalysis, dipstick] [facility] Diagnostic Test Pending 2024-02-15 00:00:00 wet mount, vaginal [code = wet mount, vaginal] [facility] Instructions [facility] Encounters Start Date/Time End Date/Time Encounter Type Admission Type Attending Clinicians Care Facility Care Department Encounter ID Source 2022-10-12 10:36:13 Outpatient [facility] [id number] [facility] 2024-02-15 00:00:00 2024-02-15 00:00:00 Waldemar Hernandez MD: [address] [place] [address], [address], [place] [address] , Ph. [phone] [facility] [id number] 2024-02-01 14:23:00 2024-02-01 14:23:00 Outpatient WALDEMAR IRBY [facility] [id number] [facility] 2024-02-01 00:00:00 2024-02-01 00:00:00 Waldemar Hernandez MD: [address] [place] [address], [address], [place] [address] , Ph. [phone] [facility] [id number] [facility] 2024-01-31 15:00:00 2024-01-31 15:00:00 Outpatient WALDEMAR IRBY [facility] [id number] [facility] 2024-01-31 00:00:00 2024-01-31 00:00:00 Waldemar Hernandez MD: [address] [place] [address], [address] [address] , Ph. [phone] [facility] [id number] 0411 [facility] 2024-01-29 00:00:00 2024-01-29 00:00:00 Outpatient White_M [facility] [id number] [facility] 2024-01-25 14:19:00 2024-01-25 14:19:00 Outpatient JANE CHARLES [facility] [id number] [facility] 2024-01-23 09:29:00 2024-01-23 09:29:00 Outpatient JANE [facility]LES [facility] [id number] [facility] 2024-01-23 00:00:00 2024-01-23 00:00:00 Janeisaías Titus [facility]: [address] [facility], [address], [place] [address] , Ph. [phone] White_M [facility] [id number] 0403 [facility] 2024-01-22 08:15:00 2024-01-22 08:15:00 Outpatient ENA CONTEH [facility] [id number] [facility] 2024-01-16 00:00:00 2024-01-16 00:00:00 Outpatient White_M [facility] [id number] [facility] 2024-01-11 14:00:00 2024-01-11 14:00:00 Outpatient Kinsey SANCHEZ, ATTENDING [facility] [id number] [facility] 2024-01-11 11:00:00 2024-01-11 11:20:14 Outpatient LIUDMILA DEY [facility] [id number] [facility] 2024-01-11 11:00:00 2024-01-11 11:20:14 Urgent Care Liudmila James, Attending [facility] 1.114 350.1.13.10 4.2.7.2.686 [id number] [facility] 2023-10-24 13:00:00 2023-10-24 13:27:23 Outpatient R LIUDMILA JAMES [facility] [id number] [facility] 2023-10-24 13:00:00 2023-10-24 13:27:23 Urgent Care Willie Liudmila Unknown, Attending REPLACED BY [facility] 1.114 350.1.13.10 4.2.7.2.686 [id number] [facility] 2023-10-24 00:00:00 2023-10-24 00:00:00 Orders Only Doctor Unassigned, Laton [facility] 1.114 350.1.13.10 4.2.7.2.686 [id number] [facility] 2023-04-23 13:15:00 2023-04-23 13:15:00 Outpatient R DAI HICKS [facility] [id number] [facility] 2023-04-02 14:30:00 2023-04-02 14:30:00 Outpatient R IVY MONTEJO [facility] [id number] [facility] 2023-03-31 00:00:00 2023-03-31 00:00:00 Patient Secure Msg Ena Dalton [facility] SLEEP SCIENTIST [facility] MATERNAL & CHILD [facility] 1..114 350.1.13.10 4.2.7.2.686 [id number] [facility] 2023-03-02 00:00:00 2023-03-02 00:00:00 Case Management Ena Dalton [facility] SLEEP SCIENTIST [facility] MATERNAL & CHILD [facility] 1..114 350.1.13.10 4.2.7.2.686 [id number] [facility] 2023-03-02 00:00:00 2023-03-02 00:00:00 Telephone ChaddyasmeenDai mercado [facility] SLEEP SCIENTIST [facility] MATERNAL & CHILD [facility] 1.2.840.114 350.1.13.10 4.2.7.2.686 [id number] [facility] 2023-03-02 00:00:00 2023-03-02 00:00:00 Patient Secure Mskatheryn Ena Dalton [facility] SLEEP SCIENTIST [facility] & CHILD [facility] 1.2.840.114 350.1.13.10 4.2.7.2.686 [id number] [facility] 2023-02-28 07:45:00 2023-02-28 08:57:53 Outpatient ENA CONTEH [facility] [id number] [facility] 2023-02-28 07:45:00 2023-02-28 08:57:53 Office Visit Ena Dalton [facility] SLEEP SCIENTIST [facility] CHILD [facility] 1.2.840.114 350.1.13.10 4.2.7.2.686 [id number] 107 [id number] [facility] 2023-02-28 00:00:00 2023-02-28 00:00:00 Orders Only Doctor Unassigned, Laton [facility] 1.2.840.114 350.1.13.10 4.2.7.2.686 [id number] [facility] 2023-01-30 14:45:00 2023-01-30 14:45:00 Outpatient ENA CONTEH [facility] [id number] [facility] 2022-12-19 14:30:00 2022-12-19 14:30:00 Outpatient VELIA BAINS [facility] [id number] [facility] 2022-11-16 00:00:00 2022-11-16 00:00:00 Outpatient White_M [facility] [id number] [facility] 2022-11-16 00:00:00 2022-11-16 00:00:00 Jane TitusSKYLARP-BC: [address], [place] [address] , Ph. [phone] [facility] [id number] [facility] 2022-11-02 15:26:00 2022-11-02 15:26:00 Outpatient JANE [facility] [id number] [facility] 2022-11-02 00:00:00 2022-11-02 00:00:00 Jane TitusSKYLARP-BC: [address] [facility] [address], [place] [address] , Ph. [phone] [facility] [id number] [facility] 2022-10-14 00:00:00 2022-10-14 00:00:00 Orders Only Doctor Unassigned, Laton [facility] 1.2.840.114 350.1.13.10 4.2.7.2.686 [id number] [facility] 2022-10-12 00:00:00 2022-10-12 00:00:00 Outpatient White_M [facility] [id number] [facility] 2022-10-12 00:00:00 2022-10-12 00:00:00 Outpatient White_M [facility] [id number] [facility] 2022-10-12 00:00:00 2022-10-12 00:00:00 Jane TitusSKYLARP-BC: [address] [facility] [address], [place] [address] , Ph. [phone] [facility] [id number] [facility] 2022-10-06 09:00:00 2022-10-06 09:00:00 Outpatient R DAI HICKS [facility] [id number] [facility] 2022-09-12 15:04:00 2022-09-12 15:04:00 Outpatient JANE [facility] [id number] [facility] 2022-09-12 00:00:00 2022-09-12 00:00:00 [place] [id number] [facility] 2022-09-12 00:00:00 2022-09-12 00:00:00 Jane Titus [employer]: [address] [address] , Ph. [phone] [facility] - [facility]YN [id number] [facility] 2022-07-07 14:45:00 2022-07-07 15:27:14 Office Visit Dai Hicks [facility] SLEEP SCIENTIST [facility] MATERNAL & CHILD [facility] 1.2.840.114 350.1.13.10 4.2.7.2.686 [id number] [facility] 2022-07-07 14:45:00 2022-07-07 15:27:14 Outpatient R DAI HICKS [facility] [id number] [facility] 2022-07-07 14:45:00 2022-07-07 14:45:00 Outpatient R DAI HICKS [facility] [id number] [facility] 2022-07-07 08:15:00 2022-07-07 08:15:00 Outpatient RICHARD GRAVES [facility] [id number] [facility] 2022-06-27 00:00:00 2022-06-27 00:00:00 Patient Secure Msg Dai Hicks [facility] SLEEP SCIENTIST [facility] MATERNAL & CHILD [facility] ..840.114 350.1.13.10 4.2.7.2.686 [id number] 107 [id number] [facility] 2022-06-21 10:30:00 2022-06-21 11:49:35 Office Visit Dai Hicks [place] SLEEP SCIENTIST [facility] MATERNAL & CHILD [facility] 1.2.840.114 350.1.13.10 4.2.7.2.686 [id number] [facility] 2022-06-21 10:30:00 2022-06-21 11:49:35 Outpatient R DAI HICKS [facility] [id number] [facility] 2022-06-21 10:30:00 2022-06-21 10:30:00 Outpatient R DAI HICKS [facility] [id number] [facility] 2022-06-19 10:15:00 2022-06-19 10:15:00 Outpatient R DAI HICKS [facility] [id number] [facility] 2022-06-16 14:00:00 2022-06-16 14:00:00 Outpatient R DAI HICKS [facility] [id number] [facility] 2022-06-16 00:00:00 2022-06-16 00:00:00 Telephone Dai Hicks [facility] SLEEP SCIENTIST [facility] & CHILD [facility] ..840.114 350.1.13.10 4.2.7.2.686 [id number] 107 [id number] [facility] 2022-04-25 08:15:00 2022-04-25 08:15:00 Outpatient R DAI HICKS [facility] [id number] [facility] 2022-04-18 14:15:00 2022-04-18 14:15:00 Outpatient R DAI HICKS [facility] [id number] [facility] 2022-04-14 00:00:00 2022-04-14 00:00:00 Telephone Dai Hicks SLEEP SCIENTIST [facility] & CHILD [facility] 1.2.840.114 350.1.13.10 4.2.7.2.686 [id number] [facility] 2022-04-14 00:00:00 2022-04-14 00:00:00 Patient Secure Msg Kurt Dai NORIEGA SLEEP SCIENTIST [facility] & CHILD [facility] 1.2.840.114 350.1.13.10 4.2.7.2.686 [id number] 107 [id number] [facility] 2022-04-04 00:00:00 2022-04-04 00:00:00 Patient Secure Msg Dai Hicks SLEEP SCIENTIST [facility] CHILD [facility] 1.2.840.114 350.1.13.10 4.2.7.2.686 [id number] 107 [id number] [facility] 2022-04-03 00:00:00 2022-04-03 00:00:00 Patient Secure Msg Kurt Dai NORIEGA SLEEP SCIENTIST [facility] CHILD [facility] 1.2.840.114 350.1.13.10 4.2.7.2.686 [id number] 107 [id number] [facility] 2022-04-03 00:00:00 2022-04-03 00:00:00 Telephone Dai Hicks SLEEP SCIENTIST [facility] & CHILD [facility] 1.2.840.114 350.1.13.10 4.2.7.2.686 [id number] [facility] 2022-03-31 16:00:00 2022-03-31 16:29:52 Outpatient R DAI HICKS [facility] [id number] [facility] 2022-03-31 16:00:00 2022-03-31 16:29:52 Office Visit Dai Hicks SLEEP SCIENTIST [facility] & CHILD [facility] 1..114 350.1.13.10 4.2.7.2.686 [id number] 107 [id number] [facility] 2022-03-31 00:00:00 2022-03-31 00:00:00 Orders Only Doctor Unassigned, Laton [facility] 1..114 350.1.13.10 4.2.7.2.686 [id number] [facility] 2022-01-30 13:00:00 2022-01-30 13:00:00 Outpatient R KALRA BURRELL [facility] [id number] [facility] 2021-11-12 00:00:00 2021-11-12 00:00:00 Patient Secure Msg Doctor Unassigned, Laton [facility] 1.114 350.1.13.10 4.2.7.2.686 [id number] [facility] 2021-11-11 14:00:00 2021-11-11 14:00:00 Outpatient R DAI HICKS [facility] [id number] [facility] 2021-11-11 14:00:00 2021-11-11 14:00:00 Outpatient R DAI HICKS [facility] [id number] [facility] 2021-10-28 13:45:00 2021-10-28 14:59:43 Outpatient R DAI HICKS [facility] [id number] [facility] 2021-10-28 13:45:00 2021-10-28 14:59:43 Office Visit Dai Hicks [place] SLEEP SCIENTIST [facility] & CHILD [facility] 1..114 350.1.13.10 4.2.7.2.686 [id number] 107 [id number] [facility] 2021-05-25 00:00:00 2021-05-25 00:00:00 Telephone Dai Hicks Beatriz [facility] SLEEP SCIENTIST [facility] & CHILD [facility] 1.840.114 350.1.13.10 4.2.7.2.686 [id number] [facility] 2021-05-24 15:15:00 2021-05-24 15:15:00 Outpatient R DAI HICKS [facility] [id number] [facility] 2021-05-11 16:00:00 2021-05-11 16:00:00 Outpatient R DAI HICKS [facility] [id number] [facility] 2021-04-26 00:00:00 2021-04-26 00:00:00 Telephone Dai Hicks [facility] SLEEP SCIENTIST [facility] CHILD [facility] 1.840.114 350.1.13.10 4.2.7.2.686 [id number] [facility] 2021-04-14 13:45:00 2021-04-14 13:45:00 Outpatient P [facility] [id number] [facility] 2021-04-05 15:45:00 2021-04-05 15:45:00 Outpatient R DAI HICKS [facility] [id number] [facility] 2021-04-04 00:00:00 2021-04-04 00:00:00 Patient Secure Msg Doctor Unassigned, Laton [facility] 1.84.114 350.1.13.10 4.2.7.2.686 [id number] 107 [id number] [facility] 2021-03-30 00:00:00 2021-03-30 00:00:00 Patient Secure Msg Doctor Unassigned, Laton [facility] 1.840.114 350.1.13.10 4.2.7.2.686 [id number] [facility] 2021-03-25 00:00:00 2021-03-25 00:00:00 Telephone Dai Hicks [facility] SLEEP SCIENTIST [facility] & CHILD [facility] 1..114 350.1.13.10 4.2.7.2.686 [id number] 107 [id number] [facility] 2021-03-25 00:00:00 2021-03-25 00:00:00 Telephone Dai Hicks [facility] SLEEP SCIENTIST [facility] & CHILD [facility] 1..114 350.1.13.10 4.2.7.2.686 [id number] 107 [id number] 2021-03-24 10:30:23 2021-03-24 10:47:41 Field Operations Supervisor Visit Lab, [facility] Varela [facility] SLEEP SCIENTIST [facility] CHILD [facility] 1..114 350.1.13.10 4.2.7.2.686 [id number] 107 [id number] [facility] 2021-03-24 10:30:00 2021-03-24 10:30:00 Outpatient R [facility] [id number] [facility] 2021-03-24 00:00:00 2021-03-24 00:00:00 Patient Secure Msg Doctor Unassigned, Laton [facility] .114 350.1.13.10 4.2.7.2.686 [id number] [facility] 2021-03-24 00:00:00 2021-03-24 00:00:00 Telephone Dai Hicks [facility] SLEEP SCIENTIST [facility] CHILD [facility] 1..114 350.1.13.10 4.2.7.2.686 [id number] 107 [id number] [facility] 2021-03-23 00:00:00 2021-03-23 00:00:00 Patient Secure Msg Richard Amaya [facility] SLEEP SCIENTIST [facility] & CHILD [facility] 1.2.840.114 350.1.13.10 4.2.7.2.686 [id number] 107 [id number] [facility] 2021-03-22 15:10:35 2021-03-22 15:25:35 Initial Visit Dai Hicks [facility] SLEEP SCIENTIST [facility] & CHILD [facility] 1.2.840.114 350.1.13.10 4.2.7.2.686 [id number] [facility] 2021-03-22 15:00:00 2021-03-22 15:00:00 Outpatient R DAI HICKS [facility] [id number] [facility] 2021-03-22 00:00:00 2021-03-22 00:00:00 Orders Only Doctor Unassigned, Laton [facility] 1.2.840.114 350.1.13.10 4.2.7.2.686 [id number] [facility] 2021-02-23 13:08:12 2021-02-23 13:35:01 Office Visit Richard Amaya [facility] SLEEP SCIENTIST [facility] 1.2.840.114 350.1.13.10 4.2.7.2.686 [id number] 107 [id number] [facility] 2021-02-23 13:00:00 2021-02-23 13:00:00 Outpatient R RICHARD AMAYA [facility] [id number] [facility] 2021-02-16 09:30:00 2021-02-16 09:30:00 Outpatient R [facility] [id number] [facility] 2021-02-16 09:30:00 2021-02-16 09:30:00 Outpatient R RICHARD AMAYA [facility] [id number] [facility] 2021-02-14 00:00:00 2021-02-14 00:00:00 Patient Secure Msg Doctor Unassigned, Laton [facility] SLEEP SCIENTIST [facility] & CHILD [facility] 1.20.114 350.1.13.10 4.2.7.2.686 [id number] [facility] 2021-02-14 00:00:00 2021-02-14 00:00:00 Patient Secure Msg Doctor Unassigned, Laton [facility] 1.20.114 350.1.13.10 4.2.7.2.686 [id number] [facility] 2021-02-02 10:05:24 2021-02-02 11:11:24 Routine Visit Richard Amaya [facility] SLEEP SCIENTIST [facility] & CHILD [facility] 1..114 350.1.13.10 4.2.7.2.686 [id number] 107 [id number] [facility] 2021-02-02 10:00:00 2021-02-02 10:00:00 Outpatient RICHARD GRAVES [facility] [id number] [facility] 2021-02-02 00:00:00 2021-02-02 00:00:00 Orders Only Doctor Unassigned, Laton [facility] 1.2.114 350.1.13.10 4.2.7.2.686 [id number] [facility] 2021-02-01 14:45:00 2021-02-01 14:45:00 Outpatient RICHARD GRAVES [facility] [id number] [facility] 2021-01-31 13:45:00 2021-01-31 13:45:00 Outpatient RICHARD GRAVES [facility] [id number] [facility] 2021-01-11 00:00:00 2021-01-11 00:00:00 Patient Outreach Pardeep Amaro [facility] 1..114 350.1.13.10 4.2.7.2.686 [id number] [facility] 2021-01-10 14:26:11 2021-01-10 15:14:43 Initial Visit Julia Amayarosa Euceda [facility] SLEEP SCIENTIST [facility] MATERNAL & CHILD [facility] 1..114 350.1.13.10 4.2.7.2.686 [id number] [facility] 2021-01-10 14:00:00 2021-01-10 14:00:00 Outpatient R JULIA AMAYAROSA [facility] [id number] [facility] 2021-01-10 00:00:00 2021-01-10 00:00:00 Orders Only Doctor Unassigned, Laton [facility] 1..114 350.1.13.10 4.2.7.2.686 [id number] [facility] 2021-01-03 14:00:00 2021-01-03 14:00:00 Outpatient R [facility] [id number] [facility] 2021-01-03 12:45:00 2021-01-03 12:45:00 Outpatient R JULIA AMAYAROSA [facility] [id number] [facility] 2020-12-28 13:15:00 2020-12-28 13:15:00 Outpatient R AMAYA, RICHARD [facility] [id number] [facility] 2020-11-29 00:00:00 2020-11-29 00:00:00 Telephone Amaya, Rosrosa Euceda [facility] SLEEP SCIENTIST [facility] & CHILD [facility] 1..114 350.1.13.10 4.2.7.2.686 [id number] 107 [id number] [facility] 2020-11-24 14:45:48 2020-11-24 15:26:28 Office Visit Amaya, Richard Euceda [facility] SLEEP SCIENTIST [facility] & CHILD [facility] 1..114 350.1.13.10 4.2.7.2.686 [id number] 107 [id number] [facility] 2020-11-24 14:45:00 2020-11-24 14:45:00 Outpatient Kinsey CEBALLOSERICHARD [facility] [id number] [facility] 2020-11-24 00:00:00 2020-11-24 00:00:00 Orders Only Doctor Unassigned, Laton [facility] 1..840.114 350.1.13.10 4.2.7.2.686 [id number] [facility] 2020-09-14 13:30:00 2020-09-14 13:30:00 Outpatient RICHARD GRAVES [facility] [id number] [facility] 2020-09-13 00:00:00 2020-09-13 00:00:00 Richard Lombardo [facility] SLEEP SCIENTIST [facility] MATERNAL & CH[facility] 1..840.114 350.1.13.10 4.2.7.2.686 [id number] 107 [id number] [facility] 2020-09-09 15:00:00 2020-09-09 15:00:00 Outpatient RICHARD GRAVES [facility] [id number] [facility] 2020-09-01 12:45:00 2020-09-01 12:45:00 Outpatient RICHARD GRAVES [facility] [id number] [facility] 2020-09-01 12:45:00 2020-09-01 12:45:00 Outpatient RICHARD GRAVES [facility] [id number] [facility] 2020-07-29 09:45:00 2020-07-29 09:45:00 Outpatient DAI BAKER [facility] [id number] [facility] 2020-07-29 09:45:00 2020-07-29 09:45:00 Outpatient R DAI HICKS [facility] [id number] [facility] 2020-06-08 10:45:00 2020-06-08 10:45:00 Outpatient R DAI HICKS [facility] [id number] [facility] 2020-06-08 10:45:00 2020-06-08 10:45:00 Outpatient R DAI HICKS [facility] [id number] [facility] 2020-04-13 11:00:57 2020-04-13 11:44:15 Office Visit Richard Amaya Kinsey [facility] SLE[facility] MATERNAL & CHILD [facility] [id number] [id number] [id number] [id number] [facility] 2020-04-13 11:00:00 2020-04-13 11:00:00 Outpatient R RICHARD AMAYA [facility] [id number] [facility] 2020-04-13 09:45:00 2020-04-13 09:45:00 Outpatient R MIRANDA VARELA [facility] [id number] [facility] 2020-03-09 10:30:00 2020-03-09 10:30:00 Outpatient R RICHARD AMAYA [facility] [id number] [facility] 2020-03-04 00:00:00 2020-03-04 00:00:00 Telephone Miranda Varela [facility] SLEEP SCIENTIST [facility] CHILD [facility] [id number] [id number] [id number] [id number] [facility] 2020-01-12 15:30:00 2020-01-12 15:30:00 Outpatient R MIRANDA VARELA [facility] [id number] [facility] 2020-01-07 00:00:00 2020-01-07 00:00:00 Patient Secure Msg Doctor Unassigned, Laton [facility] [id number] [id number] 4.2.7.2.686 [id number] [facility] 2020-01-05 13:19:07 2020-01-05 14:07:46 Office Visit Dai Hicks [facility] SLEEP SCIENTIST [facility] CHILD [facility] 1.0.114 350.1.13.10 4.2.7.2.686 [id number] [facility] 2020-01-05 13:15:00 2020-01-05 13:15:00 Outpatient R DAI HICKS [facility] [id number] [facility] 2019-12-12 08:00:00 2019-12-12 08:00:00 Outpatient R RICHARD AMAYA [facility] [id number] [facility] 2019-12-11 00:00:00 2019-12-11 00:00:00 Patient Secure Msg Miranda Varela [facility] SLEEP SCIENTIST [facility] CHILD [facility] 1..114 [id number] 4.2.7.2.686 [id number] [facility] 2019-12-08 11:15:24 2019-12-08 11:43:05 Office Visit Richard Amaya [facility] SLEEP SCIENTIST [facility] CHILD [facility] 1..114 350.1.13.10 4.2.7.2.686 [id number] [facility] 2019-12-08 00:00:00 2019-12-08 00:00:00 Orders Only Doctor Unassigned, [place] [facility] 1..114 350.1.13.10 4.2.7.2.686 [id number] [facility] 2019-11-28 00:00:00 2019-11-28 00:00:00 Telephone Miranda Varela [facility] SLEEP SCIENTIST [facility] & CHILD [facility] 1.0.114 350.1.13.10 4.2.7.2.686 [id number] [facility] 2019-11-25 08:40:20 2019-11-25 09:30:23 Office Visit Miranda Varela [facility] SLEEP SCIENTIST [facility] & CHILD [facility] 1.2.840.114 350.1.13.10 4.2.7.2.686 [id number] [facility] 2019-11-25 00:00:00 2019-11-25 00:00:00 Telephone Miranda Varela [facility] SLEEP SCIENTIST [facility] 1.2.840.114 350.1.13.10 4.2.7.2.686 [id number] [facility] 2019-11-05 00:00:00 2019-11-05 00:00:00 Telephone Dai Hicks [facility] 1.2.840.114 350.1.13.10 4.2.7.2.686 [id number] [facility] 2019-06-17 12:53:35 2019-06-17 13:48:17 Office Visit Alejandro Miranda Rogers [facility] 1.2.840.114 350.1.13.10 4.2.7.2.686 [id number] [facility] 2019-06-17 00:00:00 2019-06-17 00:00:00 Orders Only Doctor Unassigned, [place] [facility] 1.2.840.114 350.1.13.10 4.2.7.2.686 [id number] [facility] Results Test Description Test Time Test Comments Results Result Co [facility]ments [facility] - [id number] 14:37:04* Test Item Value Reference Range Interpretation Comme nts Leukocytes (test code = Leukocytes) Negative Nitrite (test code = Nitrite) negative Urobilinogen (test code = Urobilinogen) .2 Protein (test code = Protein) Negative pH (test code = pH) 6.0 Blood (test code = Blood) Non-Hemolyzed: Trace Specific Hendrum (test code = Specific Hendrum) 1.025 Ketone (test code = Ketone) Negative Bilirubin (test code = Bilirubin) Negative Glucose (test code = Glucose) Negative Appearance (test code = Appearance) Clear Color (test code = Color) Yellow [facility] Differential panel - [id number] 14:43:00 * Test Item Value Reference Range Interpretation Comme nts white blood count (test code = white blood count) 10.7 K/uL 4.0-11.5 red blood count (test code = red blood count) 4.57 M/uL 3.80-5.20 hemoglobin (test code = hemoglobin) 13.6 g/dL 10.5-15.7 hematocrit (test code = hematocrit) 41.0 % 34.0-50.0 mean corpuscular volume (charlie t code = mean corpuscular volume) 89.7 fL 86.0-100.0 mean corpuscular hemoglobin (test code = mean corpuscular hemoglobin) 29.8 pg 26.2-33.4 mean corpuscular HGB conc (t est code = mean corpuscular HGB conc) 33.2 g/dL 30.0-34.0 red cell distribution width (test code = red cell distribution width) 13.3 % 12.0-15.5 platelet count (test code = platelet count) 279 K/uL 165-450 mean platelet volume (test c ode = mean platelet volume) 8.9 fL 9.4-12.6 L neutrophils % (test code = neutrophils %) 65.5 % 44.4-80.1 Ig% (test code = Ig%) 0.4 % 0.0-0.4 lymphocyte% (test code = lymphocyte%) 25.5 % 10.0-50.0 mono % (test code = mono %) 6.7 % 3.6-12.0 eos % (test code = eos %) 1.4 % 0.0-5.4 basophil % (test code = baso mingo %) 0.5 % 0.1-1.2 absolute neutrophil count (t est code = absolute neutrophil count) 7.04 K/uL 1.56-6.13 H Ig# (test code = Ig#) 0.04 K/uL 0.00-0.03 H lymph # (test code = lymph #) 2.74 K/uL 1.18-3.74 mono # (test code = mono #) 0.72 K/uL 0.24-0.86 eos # (test code = eos #) 0.15 K/uL 0.04-0.36 basophil # (test code = baso mingo #) 0.05 K/uL 0.01-0.08 NRBC% (test code = NRBC%) 0 /100 WBC 0-0.2 NRBC# (test code = NRBC#) 0 K/uL [facility] Auto Differential panel - [id number] 14:43:00 * Test Item Value Reference Range Interpretation Comme nts white blood count (test code = white blood count) 10.7 K/uL 4.0-11.5 red blood count (test code = red blood count) 4.57 M/uL 3.80-5.20 hemoglobin (test code = hemoglobin) 13.6 g/dL 10.5-15.7 hematocrit (test code = hematocrit) 41.0 % 34.0-50.0 mean corpuscular volume (charlie t code = mean corpuscular volume) 89.7 fL 86.0-100.0 mean corpuscular hemoglobin (test code = mean corpuscular hemoglobin) 29.8 pg 26.2-33.4 mean corpuscular HGB conc (t est code = mean corpuscular HGB conc) 33.2 g/dL 30.0-34.0 red cell distribution width (test code = red cell distribution width) 13.3 % 12.0-15.5 platelet count (test code = platelet count) 279 K/uL 165-450 mean platelet volume (test c ode = mean platelet volume) 8.9 fL 9.4-12.6 L neutrophils % (test code = neutrophils %) 65.5 % 44.4-80.1 Ig% (test code = Ig%) 0.4 % 0.0-0.4 lymphocyte% (test code = lymphocyte%) 25.5 % 10.0-50.0 mono % (test code = mono %) 6.7 % 3.6-12.0 eos % (test code = eos %) 1.4 % 0.0-5.4 basophil % (test code = baso migno %) 0.5 % 0.1-1.2 absolute neutrophil count (t est code = absolute neutrophil count) 7.04 K/uL 1.56-6.13 H Ig# (test code = Ig#) 0.04 K/uL 0.00-0.03 H lymph # (test code = lymph #) 2.74 K/uL 1.18-3.74 mono # (test code = mono #) 0.72 K/uL 0.24-0.86 eos # (test code = eos #) 0.15 K/uL 0.04-0.36 basophil # (test code = baso mingo #) 0.05 K/uL 0.01-0.08 NRBC% (test code = NRBC%) 0 /100 WBC 0-0.2 NRBC# (test code = NRBC#) 0 K/uL [facility] - [id number] 14:01:32* Test Item Value Reference Range Interpretation Comme nts Leukocytes (test code = Leukocytes) Small Nitrite (test code = Nitrite) negative Urobilinogen (test code = Urobilinogen) .2 Protein (test code = Protein) 30 pH (test code = pH) 5.0 Blood (test code = Blood) Moderate Specific Hendrum (test code = Specific Hendrum) 1.025 Ketone (test code = Ketone) Large Bilirubin (test code = Bilirubin) Negative Glucose (test code = Glucose) Negative Appearance (test code = Appearance) Clear Color (test code = Color) Yellow [facility] - [id number] 14:01:32* Test Item Value Reference Range Interpretation Comme nts Leukocytes (test code = Leukocytes) Small Nitrite (test code = Nitrite) negative Urobilinogen (test code = Urobilinogen) .2 Protein (test code = Protein) 30 pH (test code = pH) 5.0 Blood (test code = Blood) Moderate Specific Hendrum (test code = Specific Hendrum) 1.025 Ketone (test code = Ketone) Large Bilirubin (test code = Bilirubin) Negative Glucose (test code = Glucose) Negative Appearance (test code = Appearance) Clear Color (test code = Color) Yellow [facility] [id number] 17:06:00* Test Item Value Reference Range Interpretation Comme nts HCG quantitative (test code = HCG quantitative) 8750.0 mIU/mL 0-5 H [facility] [id number] 17:06:00* Test Item Value Reference Range Interpretation Comme nts HCG quantitative (test code = HCG quantitative) 8750.0 mIU/mL 0-5 H [facility] - [id number] 14:17:46* Test Item Value Reference Range Interpretation Comme nts Leukocytes (test code = Leukocytes) Small Nitrite (test code = Nitrite) negative Urobilinogen (test code = Urobilinogen) .2 Protein (test code = Protein) Negative pH (test code = pH) 7.0 Blood (test code = Blood) Non-Hemolyzed: Trace Specific Hendrum (test code = Specific Hendrum) 1.015 Ketone (test code = Ketone) Negative Bilirubin (test code = Bilirubin) Negative Glucose (test code = Glucose) Negative Appearance (test code = Appearance) Clear Color (test code = Color) Yellow [facility] panel - [id number] 14:17:46* Test Item Value Reference Range Interpretation Comme nts Leukocytes (test code = Leukocytes) Small Nitrite (test code = Nitrite) negative Urobilinogen (test code = Urobilinogen) .2 Protein (test code = Protein) Negative pH (test code = pH) 7.0 Blood (test code = Blood) Non-Hemolyzed: Trace Specific Hendrum (test code = Specific Hendrum) 1.015 Ketone (test code = Ketone) Negative Bilirubin (test code = Bilirubin) Negative Glucose (test code = Glucose) Negative Appearance (test code = Appearance) Clear Color (test code = Color) Yellow [facility] - [id number] 14:17:46* Test Item Value Reference Range Interpretation Comme nts Leukocytes (test code = Leukocytes) Small Nitrite (test code = Nitrite) negative Urobilinogen (test code = Urobilinogen) .2 Protein (test code = Protein) Negative pH (test code = pH) 7.0 Blood (test code = Blood) Non-Hemolyzed: Trace Specific Hendrum (test code = Specific Hendrum) 1.015 Ketone (test code = Ketone) Negative Bilirubin (test code = Bilirubin) Negative Glucose (test code = Glucose) Negative Appearance (test code = Appearance) Clear Color (test code = Color) Yellow [facility] [id number] 18:09:00* Test Item Value Reference Range Interpretation Comme [facility] HCG quantitative (test code = HCG quantitative) 1146.0 mIU/mL 0-5 H [facility] [id number] 18:09:00* Test Item Value Reference Range Interpretation Comme [facility] HCG quantitative (test code = HCG quantitative) 1146.0 mIU/mL 0-5 H [facility] [id number] 18:09:00* Test Item Value Reference Range Interpretation Comme [facility] HCG quantitative (test code = HCG quantitative) 1146.0 mIU/mL 0-5 H [facility] ehghhwxnrxdt3963-11-01 11:06:00* Test Item Value Reference Range Interpretation Comme [facility] HCG quantitative (test code = HCG quantitative) 466.6 mIU/mL 0-5 H [facility] [id number] 11:06:00* Test Item Value Reference Range Interpretation Comme [facility] HCG quantitative (test code = HCG quantitative) 466.6 mIU/mL 0-5 H [facility] CenterChoriogonadotropin.beta subunit [Units/volume] in Serum or [id number] 11:06:00* Test Item Value Reference Range Interpretation Comme [facility] HCG quantitative (test code = HCG quantitative) 466.6 mIU/mL 0-5 H [facility], [id number] 09:36:27* Test Item Value Reference Range Interpretation Comme [facility] Test (test code = Test) positive [facility], [id number] 09:36:27* Test Item Value Reference Range Interpretation Comme nts Test (test code = Test) positive [facility], [id number] 09:36:27* Test Item Value Reference Range Interpretation Comme nts Test (test code = Test) positive [facility] (dipstick) panel - [id number] 08:33:52* Test Item Value Reference Range Interpretation Comme nts Leukocytes (test code = Leukocytes) Negative Nitrite (test code = Nitrite) negative Urobilinogen (test code = Urobilinogen) .2 Protein (test code = Protein) Negative pH (test code = pH) 6.0 Blood (test code = Blood) Non-Hemolyzed: Trace Specific Hendrum (test code = Specific Hendrum) 1.025 Ketone (test code = Ketone) Negative Bilirubin (test code = Bilirubin) Negative Glucose (test code = Glucose) Negative Appearance (test code = Appearance) Clear Color (test code = Color) Yellow [facility]dipstick) panel - [id number] 08:33:52* Test Item Value Reference Range Interpretation Comme nts Leukocytes (test code = Leukocytes) Negative Nitrite (test code = Nitrite) negative Urobilinogen (test code = Urobilinogen) .2 Protein (test code = Protein) Negative pH (test code = pH) 6.0 Blood (test code = Blood) Non-Hemolyzed: Trace Specific Hendrum (test code = Specific Hendrum) 1.025 Ketone (test code = Ketone) Negative Bilirubin (test code = Bilirubin) Negative Glucose (test code = Glucose) Negative Appearance (test code = Appearance) Clear Color (test code = Color) Yellow [facility] (dipstick) panel - [id number] 08:33:52* Test Item Value Reference Range Interpretation Comme nts Leukocytes (test code = Leukocytes) Negative Nitrite (test code = Nitrite) negative Urobilinogen (test code = Urobilinogen) .2 Protein (test code = Protein) Negative pH (test code = pH) 6.0 Blood (test code = Blood) Non-Hemolyzed: Trace Specific Hendrum (test code = Specific Hendrum) 1.025 Ketone (test code = Ketone) Negative Bilirubin (test code = Bilirubin) Negative Glucose (test code = Glucose) Negative Appearance (test code = Appearance) Clear Color (test code = Color) Yellow [facility]PO[facility] [id number] 16:22:00* Test Item Value Reference Range Interpretation Comme nts POCT PREG (test code = 1605) Negative On board controls acceptable with C Line (test code = 3574) Yes POCT PREG LOT # (test code = 3575) POCT PREG TEST DATE ( test code = 3576) Lab Interpretation (test cod e = 48259-7) Normal [facility] Urinalysis W Specific [id number] 16:19:00* Test Item Value Reference Range Interpretation [...] Cloudy Lab Interpretation (test cod e = 16238-4) [id number] 19:24:00* Test Item Value Reference Range Interpretation Comme nts POCT PREG (test code = 1605) Negative On board controls acceptable with C Line (test code = 3574) Yes POCT PREG LOT # (test code = 3575) POCT PREG TEST DATE (test code = 3576) CECIL (test code = CECIL) accurate developme nt and interpretation of all internal controls Lab Interpretation (test code = 07542-1) [facility] [id number] 19:24:00* Test Item Value Reference Range Interpretation Comme nts POCT PREG (test code = 1605) Negative On board controls acceptable with C Line (test code = 3574) Yes POCT PREG LOT # (test code = 3575) POCT PREG TEST DATE (test code = 3575) CECIL (test code = CECIL) accurate developme nt and interpretation of all internal controls Lab Interpretation (test code = 52270-5) Normal [facility] Urinalysis W Specific Sicqiys1627-23-81 19:20:00* Test Item Value Reference Range Interpretation [...] internal controls Lab Interpretation (test code = 58378-7) Normal [facility] Urinalysis W Specific Qbfttro1909-07-27 19:20:00* Test Item Value Reference Range Interpretation [...] internal controls Lab Interpretation (test code = 75848-6) Normal [facility] ONLY - SYPHILIS [id number] 15:05:59* Test Item Value Reference Range Interpretation Comme nts Syphilis IgG/IgM (test code = 52503-3) Non-reactive Non-reactive CECIL (test code = CECIL) Non-reactive - No serologic evidence of T. pallidum infection. Cannot exclude incubating or early syphilis. Submit a second specimen in 2-4 weeks if syphilis is clinically suspected. Equivocal - Further testing to follow. Reactive - Further testing to follow. Lab Interpretation (test code = 61183-1) Normal [facility] ONLY - SYPHILIS IGG/[id number] 15:05:59* Test Item Value Reference Range Interpretation Comme nts Syphilis IgG/IgM (test code = 56531-6) Non-reactive Non-reactive CECIL (test code = CECIL) Non-reactive - No serologic evidence of T. pallidum infection. Cannot exclude incubating or early syphilis. Submit a second specimen in 2-4 weeks if syphilis is clinically suspected. Equivocal - Further testing to follow. Reactive - Further testing to follow. Lab Interpretation (test code = 41685-4) Normal [facility] ONLY - SYPHILIS IGG/[id number] 15:05:59* Test Item Value Reference Range Interpretation Comme nts Syphilis IgG/IgM (test code = 25111-8) Non-reactive Non-reactive CECIL (test code = CECIL) Non-reactive - No serologic evidence of T. pallidum infection. Cannot exclude incubating or early syphilis. Submit a second specimen in 2-4 weeks if syphilis is clinically suspected. Equivocal - Further testing to follow. Reactive - Further testing to follow. Lab Interpretation (test code = 87444-3) Normal [facility] 1/2 AG-AB WITH [id number] 06:58:27* Test Item Value Reference Range Interpretation Comme nts HIV Semi-quantitative (test code = 34580-4) 0.12 Negative CECIL (test code = CECIL) Non-reactive for HIV-1 antigen and HIV-1/HIV-2 antibodies. ?No laboratory evidence of HIV infection. ?Repeat in 2-4 weeks if acute HIV infection is suspected. [facility] WITH [id number] 06:58:27* Test Item Value Reference Range Interpretation Comme nts HIV Semi-quantitative (test code = 84805-1) 0.12 Negative CECIL (test code = CECIL) Non-reactive for HIV-1 antigen and HIV-1/HIV-2 antibodies. ?No laboratory evidence of HIV infection. ?Repeat in 2-4 weeks if acute HIV infection is suspected. [facility] 1/2 AG-AB WITH [id number] 06:58:27* Test Item Value Reference Range Interpretation Comme [facility] HIV Semi-quantitative (test code = 41112-5) 0.12 Negative CECIL (test code = CECIL) Non-reactive for HIV-1 antigen and HIV-1/HIV-2 antibodies. ?No laboratory evidence of HIV infection. ?Repeat in 2-4 weeks if acute HIV infection is suspected. [facility] [id number] 05:29:42* Test Item Value Reference Range Interpretation Comme [facility] HCV Ab (test code = 57884-8) Negative HCV Semi-Quantitative (test code = 58319-5) 0.01 [facility] [id number] 05:29:42* Test Item Value Reference Range Interpretation Comme nts HCV Ab (test code = 17273-6) Negative HCV Semi-Quantitative (test code = 48507-7) 0.01 [facility] [id number] 05:29:42* Test Item Value Reference Range Interpretation Comme [facility] HCV Ab (test code = 35759-8) Negative HCV Semi-Quantitative (test code = 45516-6) 0.01 [facility]GLYCOSYLATED HEMOGLOBIN (A1C)2023-03-01 05:25:25* Test Item Value Reference Range Interpretation Comme [facility] HGB A1C (test code = 4548-4) 5.3 % 4.0-5.7 CECIL (test code = CECIL) Reference RangesNormal: <5.7%Prediabetes: 5.7 - 6.4%Diabetes: > 6.5% Lab Interpretation (test code = 21926-1) Normal [facility]GLY[facility]EM[facility]GLOBIN (A1C)2023-03-01 05:25:25* Test Item Value Reference Range Interpretation Comme nts HGB A1C (test code = 4548-4) 5.3 % 4.0-5.7 CECIL (test code = CECIL) Reference RangesNormal: <5.7%Prediabetes: 5.7 - 6.4%Diabetes: > 6.5% Lab Interpretation (test code = 07626-8) Normal [facility]GLY[facility]OS[facility]ATED HEM[facility]GLOBIN (A1C)2023-03-01 05:25:25* Test Item Value Reference Range Interpretation Comme nts HGB A1C (test code = 4548-4) 5.3 % 4.0-5.7 CECIL (test code = CECIL) Reference RangesNormal: <5.7%Prediabetes: 5.7 - 6.4%Diabetes: > 6.5% Lab Interpretation (test code = 60209-9) Normal [facility]CB WITH [id number] 05:04:15* Test Item Value Reference Range Interpretation Comme nts WBC (test code = 6690-2) 9.14 See_Comment [Automated Food[employer] ge] The system which generated this result transmitted reference range: 4.30 - 11.10 10*3/?L. The reference range was not used to interpret this result as normal/abnormal. RBC (test code = 789-8) 4.95 See_Comment [Automated [employer] ge] The system which generated this result [...] 32.5 g/dL 31.6-35.1 RDW-SD (test code = 21954-9) 43.6 fL 39.0-49.9 RDW-CV (test code = 788-0) 12.8 % 12.0-15.5 PLT (test code = 777-3) 326 See_Comment [Automated messa ge] The system which generated this result transmitted reference range: 166 - 358 10*3/?L. The reference range was not used to interpret this result as normal/abnormal. MPV (test code = 81587-3) 10.1 fL 9.5-12.9 NRBC/100 WBC (test code = 7268875848) 0.0 See_Comment [Automated Pili Pop ssage] The system which generated this result transmitted reference range: 0.0 - 10.0 /100 WBCs. The reference range was not used to interpret this result as normal/abnormal. NRBC x10^3 (test code = 2196676887) See_Comment [Automated messa ge] The system which generated this result transmitted reference range: 10*3/?L. The reference range was not used to interpret this result as normal/abnormal. GRAN MAT (NEUT) % (test code = 770-8) 59.5 % IMM GRAN % (test code = 4158056352) 0.10 % LYMPH % (test code = 736-9) 31.2 % MONO % (test code = 5905-5) 5.9 % EOS % (test code = 713-8) 2.8 % BASO % (test code = 706-2) 0.5 % GRAN MAT x10^3(ANC) (test code = 4201238326) 5.43 10*3/uL 1.88-7.09 IMM GRAN x10^3 (test code = 8018708283) 0.00-0.06 LYMPH x10^3 (test code = 731-0) 2.85 10*3/uL 1.32-3.29 MONO x10^3 (test code = 742-7) 0.54 10*3/uL 0.33-0.92 EOS x10^3 (test code = 711-2) 0.26 10*3/uL 0.03-0.39 BASO x10^3 (test code = 704-7) 0.05 10*3/uL 0.01-0.07 Lab Interpretation (test code = 62702-5) Abnormal [facility] WITH [id number] 05:04:15* Test Item Value Reference Range Interpretation [...] 32.5 g/dL 31.6-35.1 RDW-SD (test code = 62671-2) 43.6 fL 39.0-49.9 RDW-CV (test code = 788-0) 12.8 % 12.0-15.5 PLT (test code = 777-3) 326 See_Comment [Automated messa ge] The system which generated this result transmitted reference range: 166 - 358 10*3/?L. The reference range was not used to interpret this result as normal/abnormal. MPV (test code = 85663-0) 10.1 fL 9.5-12.9 NRBC/100 WBC (test code = 0883857142) 0.0 See_Comment [Automated Pili Pop ssage] The system which generated this result transmitted reference range: 0.0 - 10.0 /100 WBCs. The reference range was not used to interpret this result as normal/abnormal. NRBC x10^3 (test code = 6084135419) See_Comment [Automated messa ge] The system which generated this result transmitted reference range: 10*3/?L. The reference range was not used to interpret this result as normal/abnormal. GRAN MAT (NEUT) % (test code = 770-8) 59.5 % IMM GRAN % (test code = 1291319597) 0.10 % LYMPH % (test code = 736-9) 31.2 % MONO % (test code = 5905-5) 5.9 % EOS % (test code = 713-8) 2.8 % BASO % (test code = 706-2) 0.5 % GRAN MAT x10^3(ANC) (test code = 8017050243) 5.43 10*3/uL 1.88-7.09 IMM GRAN x10^3 (test code = 5260340426) 0.00-0.06 LYMPH x10^3 (test code = 731-0) 2.85 10*3/uL 1.32-3.29 MONO x10^3 (test code = 742-7) 0.54 10*3/uL 0.33-0.92 EOS x10^3 (test code = 711-2) 0.26 10*3/uL 0.03-0.39 BASO x10^3 (test code = 704-7) 0.05 10*3/uL 0.01-0.07 Lab Interpretation (test code = 64462-5) Abnormal [facility] WITH [id number] 05:04:15* Test Item Value Reference Range Interpretation [...] 32.5 g/dL 31.6-35.1 RDW-SD (test code = 30676-8) 43.6 fL 39.0-49.9 RDW-CV (test code = 788-0) 12.8 % 12.0-15.5 PLT (test code = 777-3) 326 See_Comment [Automated messa ge] The system which generated this result transmitted reference range: 166 - 358 10*3/?L. The reference range was not used to interpret this result as normal/abnormal. MPV (test code = 59609-8) 10.1 fL 9.5-12.9 NRBC/100 WBC (test code = 3214192425) 0.0 See_Comment [Automated Pili Pop ssage] The system which generated this result transmitted reference range: 0.0 - 10.0 /100 WBCs. The reference range was not used to interpret this result as normal/abnormal. NRBC x10^3 (test code = 3172424516) See_Comment [Automated [employer] ge] The system which generated this result transmitted reference range: 10*3/?L. The reference range was not used to interpret this result as normal/abnormal. GRAN MAT (NEUT) % (test code = 770-8) 59.5 % IMM GRAN % (test code = 1832507683) 0.10 % LYMPH % (test code = 736-9) 31.2 % MONO % (test code = 5905-5) 5.9 % EOS % (test code = 713-8) 2.8 % BASO % (test code = 706-2) 0.5 % GRAN MAT x10^3(ANC) (test code = 3004971452) 5.43 10*3/uL 1.88-7.09 IMM GRAN x10^3 (test code = 5486779304) 0.00-0.06 LYMPH x10^3 (test code = 731-0) 2.85 10*3/uL 1.32-3.29 MONO x10^3 (test code = 742-7) 0.54 10*3/uL 0.33-0.92 EOS x10^3 (test code = 711-2) 0.26 10*3/uL 0.03-0.39 BASO x10^3 (test code = 704-7) 0.05 10*3/uL 0.01-0.07 Lab Interpretation (test code = 44767-7) Abnormal [facility] antico[facility], [id number] 14:10:00 * Test Item Value Reference Range [...] used to interpret this result as normal/abnormal. [facility] IgG and IgM panel - [id number] 19:14:00* Test Item Value Reference Range Interpretation Comme nts beta 2 glyco,IgG (test code = beta 2 glyco,IgG) <9 0-20 beta 2 glyco,IgA (test code = beta 2 glyco,IgA) <9 0-25 beta 2 glycoprot,IgM (test c ode = beta 2 glycoprot,IgM) <9 0-32 [facility] - [id number] 19:14:00 * Test Item Value Reference Range Interpretation Comme nts anticardiolipin Ab IgG (test code = anticardiolipin Ab IgG) <9 0-14 anticardiolipin Ab IgM (test code = anticardiolipin Ab IgM) <9 0-12 [facility]rfx HPV if ASCUS+leukorrhea panel [...] (test code = vance - swab) normal [facility]inal[facility] macro (dipstick) panel - [id number] 09:40:09* Test Item Value Reference Range Interpretation Comme nts Leukocytes (test code = Leukocytes) Trace Nitrite (test code = Nitrite) negative Urobilinogen (test code = Urobilinogen) .2 Protein (test code = Protein) Negative pH (test code = pH) 5.5 Blood (test code = Blood) Negative Specific Hendrum (test code = Specific Hendrum) 1.030 Ketone (test code = Ketone) Negative Bilirubin (test code = Bilirubin) Small Glucose (test code = Glucose) Negative Appearance (test code = Appearance) Cloudy Color (test code = Color) Yellow [facility] macro (dipstick) panel - [id number] 09:40:09* Test Item Value Reference Range Interpretation Comme nts Leukocytes (test code = Leukocytes) Trace Nitrite (test code = Nitrite) negative Urobilinogen (test code = Urobilinogen) .2 Protein (test code = Protein) Negative pH (test code = pH) 5.5 Blood (test code = Blood) Negative Specific Hendrum (test code = Specific Hendrum) 1.030 Ketone (test code = Ketone) Negative Bilirubin (test code = Bilirubin) Small Glucose (test code = Glucose) Negative Appearance (test code = Appearance) Cloudy Color (test code = Color) Yellow [facility] - cancer history assessment [id number] 08:33:00 * Test Item Value Reference Range Interpretation Comme [facility] - cancer history assessment result (test code = [facility] [place]) does not meet criteria [facility] - cancer history assessment [id number] 08:33:00 * Test Item Value Reference Range Interpretation Comme [facility] - cancer history assessment result (test code = [facility] [place] result) does not meet criteria [facility] + TV, DNA, urine/[id number] 00:00:00* Test Item Value Reference Range Interpretation Comme nts vance - swab (test code = vance - swab) normal gardnerella (test code = gardnerella) abnormal A CT/NG (test code = CT/NG) normal trichomonas vaginalis addon - swab (test code = trichomonas vaginalis addon - swab) normal [facility] (dipstick) panel - [id number] 14:03:06* Test Item Value Reference Range Interpretation Comme nts Leukocytes (test code = Leukocytes) Negative Nitrite (test code = Nitrite) negative Urobilinogen (test code = Urobilinogen) .2 Protein (test code = Protein) Negative pH (test code = pH) 6.0 Blood (test code = Blood) Negative Specific Hendrum (test code = Specific Hendrum) 1.030 Ketone (test code = Ketone) Negative Bilirubin (test code = Bilirubin) Negative Glucose (test code = Glucose) Negative Appearance (test code = Appearance) Clear Color (test code = Color) Yellow [facility] (dipstick) panel - [id number] 14:03:06* Test Item Value Reference Range Interpretation Comme nts Leukocytes (test code = Leukocytes) Negative Nitrite (test code = Nitrite) negative Urobilinogen (test code = Urobilinogen) .2 Protein (test code = Protein) Negative pH (test code = pH) 6.0 Blood (test code = Blood) Negative Specific Hendrum (test code = Specific Hendrum) 1.030 Ketone (test code = Ketone) Negative Bilirubin (test code = Bilirubin) Negative Glucose (test code = Glucose) Negative Appearance (test code = Appearance) Clear Color (test code = Color) Yellow [facility] CenterPOCT [id number] 20:02:00* Test Item Value Reference Range Interpretation Comme nts POCT PREG (test code = 1605) Negative On board controls acceptable with C Line (test code = 3574) Yes POCT PREG LOT # (test code = 3575) POCT PREG TEST DATE ( test code = 3576) [facility] Notes Date/Time Note Provider Source 2023-10-24 13:00:00 [id number]:00A ddended by: LIUDMILA JAMES on: 10/25/2023 03:51 PMModules accepted: Orders [id number]:51:06Addendum [id number] for patient [id number] C-CDA narrative textUT[address] [id number]:51:061.2.840 .[id number]. [id number] [facility]"
--- NOTE | 2024-04-08 17:07 | RAD REPORT ---
EXAM DESCRIPTION: US - Transvaginal OB - 04/08/2024 4:56 pm CLINICAL HISTORY: ABD PAIN COMPARISON: Transvaginal OB dated 01/17/2024 FINDINGS: The endometrial stripe is thickened at 2 cm. There is no evidence of an IUP seen within en dometrium. 3.7 x 3.4 cm right ovary with 2.5 cm cyst present for normal blood flow present to the right ovary. A pproximately 2 cm echogenic ring structure seen adjacent to the right ovary. Left ovary is nonvisualized due to bowel gas. No pelvic ascites. IMPRESSION: Thickened endometrial stripe without IUP seen. 2 cm echogenic ring structure adjacent to the right ovary is highly suspicious for ectopic . Recommend correlation beta HCG levels an d clinical findings.
[2024-04-08 17:25] LABS: Specific Gravity 1.018 (1.005-1.030); Urine Bacteria <20 /HPF (<20); Urine Bilirubin NEGATIVE (Negative); Urine Blood 1+ (Negative); Urine Clarity Extremely Turbid (Clear); Urine Color Light-Yellow (Yellow); Urine Culture Reflex Order NOT NEEDED; Urine Glucose NEGATIVE (Negative); Urine Ketones TRACE (Negative); Urine Microscopic Reflex YN ORDER UMIC; Urine Mucus Slight /HPF (None Seen); Urine Nitrite NEGATIVE (Negative); Urine Protein NEGATIVE (Negative); Urine RBC <5 /HPF (None Seen); Urine Urobilinogen Normal (Normal); Urine WBC <5 /HPF (<5); Urine Yeast (Budding) Trace /HPF (None Seen); Urine pH 5.5 (5.0-7.0)
[2024-04-08 17:28] LABS: Absolute Eosinophils 0.1 K/uL (0-0.5); Absolute Lymphocytes (CBC) 1.8 K/uL (0.7-4.9); Absolute Monocytes 0.8 K/uL (0.1-1.3); Absolute Neutrophil 9.7 K/uL (1.8-8.0); Basophils % 0.2 % (0-1.3); Eosinophils % 0.9 % (0-4.4); Hematocrit 40.8 % (36.0-45.0); Hemoglobin 13.5 g/dL (12.0-15.0); Lymphocytes % 14.6 % (15.3-44.8); MCH 29.9 pg (27.0-35.0); MCHC 33.1 g/dL (32.0-36.0); MCV 90.3 fL (80-100); MPV 7.5 fL (7.6-11.3); Monocytes % 6.1 % (3.3-12.3); Neutrophils % 78.2 % (41.7-73.7); Platelets 309 thou/uL (152-406); RBC Red Blood Cell Count 4.52 M/uL (3.86-4.86); Red Cell Distribution Width 13.7 % (12.1-15.2)
[2024-04-08 18:09] LABS: Anion Gap 8.5 mEq/L (5.0-15.0); Potassium 3.5 mEq/L (3.5-5.1)
--- NOTE | 2024-04-08 18:14 | ER ---
Nurse's Notes [facility] Name: Beena Garcia Age: 28 yrs Sex: Female : 1995 Arrival Date: 04/08/2024 Time: 16:01 Bed 9 Private MD: Diagnosis: Unspecified ectopic without intrauterine Presentation: 04/08 16:19 Coronavirus screen: Client denies travel out of the [place] in the last 14 days. At this ll1 time, the client does not indicate any symptoms associated with coronavirus-19. Ebola Screen: Patient denies travel to an Ebola-affected area in the 21 days before illness onset. Initial Sepsis Screen: Does the patient meet any 2 criteria? No. Patient's initial sepsis screen is negative. Does the patient have a suspected source of infection? No. Patient's initial sepsis screen is negative. Risk Assessment: Do you want to hurt yourself or someone else? Patient reports no desire to harm self or others. 16:19 Method Of Arrival: Ambulatory ll1 16:24 Chief complaint: Patient states: R sided pelvic pain for 1 week. Positive ll1 test today. Just had ectopic 2 months ago. Onset of symptoms was April 01, 2024. 16:24 Acuity: LETTY 3 ll1 Triage Assessment: 16:31 General: Appears uncomfortable, Behavior is calm, cooperative, appropriate for age. ll1 Pain: Complains of pain in R pelvic area. : Reports pain in right pelvic positive test today. 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 - Infectious Disease History:: Denies. - Social history:: Smoking status: Patient denies any tobacco usage or history of. Screenin:55 [facility] ED Fall Risk Assessment (Adult) History of falling in the last 3 months, as6 including since admission No falls in past 3 months (0 pts) Confusion or Disorientation No (0 pts) Intoxicated or Sedated No (0 pts) Impaired Gait No (0 pts) Mobility Assist Device Used No (0 pt) Altered Elimination No (0 pt) Score/Fall Risk Level 0 - 2 = Low Risk Oriented to surroundings, Maintained a safe environment, Educated pt \T\ family on fall prevention, incl call for assistance when getting out of bed, Assessed \T\ reinforced patient's understanding of fall precautions. Abuse screen: Denies threats or abuse. Denies injuries from another. Nutritional screening: No deficits noted. Tuberculosis screening: No symptoms or risk factors identified. Assessment: 17:55 Reassessment: Patient appears in no apparent distress at this time. Patient and/or as6 family updated on plan of care and expected duration. Pain level reassessed. Patient is alert, oriented x 3, equal unlabored respirations, skin warm/dry/pink. Vital Signs: 16:24 BP 132 / 89; Pulse 100; Resp 16; Temp 97; Pulse Ox 100% ; Weight 68.04 kg; Height 5 ft. ll1 0 in. ; Pain 8/10; 17:55 BP 114 / 74; Pulse 95; Resp 18; Pulse Ox 98% ; as6 16:24 Body Mass Index 29.29 (68.04 kg, 152.4 cm) ll1 16:24 Pain Scale: Adult ll1 ED Course: 16:03 Patient arrived in ED. rg4 16:06 Ivonne Thompson FNP-C is [facility]. kb 16:06 Chris Mckinney MD is Attending Physician. kb 16:17 Arm band placed on. ll1 16:26 Triage completed. ll1 16:58 US Transvaginal Ob In Process Unspecified. EDMS 17:26 Abo/rh Typing Sent. bc6 17:26 Basic Metabolic Panel Sent. bc6 17:26 CBC with Diff Sent. bc6 17:26 Quantitative Hcg Sent. bc6 17:26 Initial lab(s) drawn, by wa, sent to lab. Inserted saline lock: 20 gauge in right bc6 antecubital area, using aseptic technique. Blood collected. 17:38 Kennedy Ceballos, MISHA is Primary Nurse. as6 17:55 Bed in low position. Call light in reach. Provided Education on: need for transfer . as6 17:55 No provider procedures requiring assistance completed. Patient transferred, IV remains as6 in place. Administered Medications: No medications were administered Medication: 17:55 VIS not applicable for this client. as6 Outcome: 17:31 ER care complete, transfer ordered by . thea 17:55 Condition: stable as6 17:55 Instructed on the need for transfer, 18:43 Transferred [facility] Transfer form completed. X-rays sent w/ as6 patient. 18:43 Patient left the ED. as6 Signatures: Dispatcher [employer] EDMS Ivonne Thompson, SAMIA ALAS-Awilda Constantino rg4 Yvette Hopper RN RN ll1 Kennedy Ceballos RN RN as6 Pam Fletcher 6
--- NOTE | 2024-04-08 18:14 | EDPHYS ---
Physician Documentation [facility] Name: Beena Garcia Age: 28 yrs Sex: Female : 1995 Arrival Date: 04/08/2024 Time: 16:01 Bed 9 Private MD: ED Physician Chris Mckinney HPI: 04/08 17:29 This 28 yrs old Female presents to ER via Ambulatory with complaints of Pelvic kb Pain, Flank Pain. 17:29 Pt is a 28 year old female who presents for right pelvic pain that started one week kb ago. States she didn't think much of it, but it hasn't gone away and has gotten a little worse. States she took a test this morning and it was positive so she is concerned about an ectopic . States she had an ectopic 2 months ago and had to have her left tube removed. States she hasn't had a period since the surgery. A5. 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 - Infectious Disease History:: Denies. - Social history:: Smoking status: Patient denies any tobacco usage or history of. ROS: 17:14 Constitutional: As per HPI kb Exam: 17:28 Constitutional: This is a well developed, well nourished patient who is awake, alert, kb and in no acute distress. Head/Face: Normocephalic, atraumatic. ENT: Moist Mucous membranes Cardiovascular: Regular rate Respiratory: Respirations even and unlabored. No increased work of breathing. Talking in full sentences Skin: Warm, dry with normal turgor. Normal color. MS/ Extremity: Pulses equal, no cyanosis. Neurovascular intact. Full, normal range of motion. Neuro: Awake and alert, GCS 15, oriented to person, place, time, and situation. Moves all extremities. Normal gait. 17:28 Abdomen/GI: Inspection: abdomen appears normal, Bowel sounds: normal, Palpation: soft, in all quadrants, moderate abdominal tenderness, in the right lower quadrant, Vital Signs: 16:24 BP 132 / 89; Pulse 100; Resp 16; Temp 97; Pulse Ox 100% ; Weight 68.04 kg; Height 5 ft. ll1 0 in. ; Pain 8/10; 17:55 BP 114 / 74; Pulse 95; Resp 18; Pulse Ox 98% ; as6 16:24 Body Mass Index 29.29 (68.04 kg, 152.4 cm) ll1 16:24 Pain Scale: Adult ll1 MDM: 16:06 Patient medically screened. kb 17:28 Differential diagnosis: threatened Ab, ectopic . Data reviewed: vital signs, kb nurses notes. Consideration of Admission/Observation Escalation of care including admission/observation considered. pt will be transferred for OB. Counseling: I had a detailed discussion with the patient and/or guardian regarding the historical points, exam findings, and any diagnostic results supporting the discharge/admit diagnosis, lab results, radiology results, the need to transfer to another facility, [facility] does not immediately have the required specialist. 17:32 ED course: Old records reviewed. Pt is A positive. kb 17:43 Management of patient was discussed with the following: Dr Fields accepts pt to ER at [facility]. 04/08 16:29 Order name: Abo/rh Typing; Complete Time: 17:58 kb 04/08 16:29 Order name: Basic Metabolic Panel; Complete Time: 18:10 kb 18 16:29 Order name: CBC with Diff; Complete Time: 17:31 kb 04/08 16:29 Order name: Test, Urine; Complete Time: 17:26 kb 04/08 16:29 Order name: Quantitative Hcg; Complete Time: 18:10 kb 18 16:29 Order name: Urinalysis w/ reflexes; Complete Time: 17:26 kb 18 16:29 Order name: US Transvaginal Ob; Complete Time: 17:08 kb 04/08 16:29 Order name: IV Saline Lock; Complete Time: 17:26 kb 04/08 16:29 Order name: Labs collected and sent; Complete Time: 17:26 kb 18 16:29 Order name: NPO; Complete Time: 17:26 kb Administered Medications: No medications were administered Disposition Summary: 04/08/24 17:31 Transfer Ordered Notes: Transfer Location: [facility] kb Reason: Higher level of care kb Condition: Stable kb Problem: new kb Symptoms: are unchanged kb Accepting Physician: Dr Fields(04/08/24 18:43) as6 Diagnosis - Unspecified ectopic without intrauterine kb Forms: - Medication Reconciliation Form kb - SBAR form kb Signatures: Dispatcher [employer] EDIvonne Bhardwaj, FLOOR REFINISHER-C Yvette Presley RN RN ll1 Kennedy Ceballos RN RN as6 Corrections: (The following items were deleted from the chart) 16:29 16:29 ABO/RH TYPING+BB.LAB.BRZ ordered. EDMS EDMS 16:29 16:29 BASIC METABOLIC PANEL+C.LAB.BRZ ordered. EDMS EDMS 16:29 16:29 CBC+H.LAB.BRZ ordered. EDMS EDMS 16:29 16:29 Test, Urine+UC.LAB.BRZ ordered. EDMS EDMS 16:29 16:29 QUANTITATIVE HCG+C.LAB.BRZ ordered. EDMS EDMS 16:29 16:29 Urinalysis+U.LAB.BRZ ordered. EDMS EDMS 16:29 16:29 Transvaginal Ob+US.RAD.BRZ ordered. EDMS EDMS 17:42 17:31 Dr sidhu kb 18:43 17:42 Dr Fields kb as6
[2024-04-08 19:49] VITALS: BP 114/74; TEMP 97; O2SAT 98
== END 2024-04-08 18:43 | disposition short-term general hospital (02) ==
LOC: ER 16:01
DX: O00.90 Unspecified ectopic pregnancy without intrauterine pregnancy (principal)
CPT/HCPCS: 36415; 76817; 80048; 81001; 81025; 84702; 85025; 86900; 86901

== ENCOUNTER 2024-11-28 20:36 | Emergency (ER) | payer OTHER ==
--- OUTSIDE RECORDS SUMMARY | 2024-11-28 20:41 | XMS REPORT | Continuity of Care Document ---
Author Name Unknown Address [address] [facility]. [address] [id number] [facility] thconnect Address [address] [facility] [address] [place] [address] Care Team Providers Care Detail Supervisor Name Role Phone STEPHANIE HICKS Primary Care Physician Unav ailable STEPHANIE HICKS Attending Clinician Unavail able Shelby Villa Attending Clinician [phone] SHELBY MERCER Attending Clinician Unavailable Stephanie Parisi Attending Clinician + Ena Dalton CNM Attending Clinician [phone] Stephanie Parisi Attending Clinician + Flor Rouse Attending Clinician Unavailable ELISE HERNANDEZ Attending Clinician Unavailyarelis Blunt Attending Clinician Unavailable JANE TITUS Attending Clinician Unavailable ENA DALTON Attending Clinician Unavaila ble UNKNOWN, ATTENDING Attending Clinician Unavailab RADHA Dave Attending Clinician Unavailable Radha Tapia PA-C Attending Clinician [phone] Unknown, Attending Attending Clinician Unavailab le Doctor Unassigned, [place] Attending Clinician U IVY Pabon Attending Clinician Unavailabl VELIA Piña Attending Clinician Unavailable RICHARD AMAYA Attending Clinician Unavailab KARLA Damian Attending Clinician Frances ramsay Lab, Ang-Rm[facility]p Attending Clinician Unavailable Ida Marroquin Attending Clinician [phone] Richard Machuca Attending Clinician Pardeep Najera DO Attending Clinician [phone] IDA VARELA Attending Clinician Lyndon Martell Admitting Clinician Toñito Rahman_Yessi Admitting Clinician Unavailable Payers Payer Name Policy Type Policy Number Effective Date Expirati on Date Source [facility] (MEDICAID HMO) [id number] 2016 00:00:00 MEDICAID PENDING PENDING 2021 00:00:00 W-RMCHP [id number] 2017 00:00:00 Problems Condition Name Condition Details Condition Category Status Onset Date Resolution Date Last Treatment Date Treating Clinician Comments Source Encounter for other contracept rishi management Encounter for other contracept rishi management Disease Active 05-13 00:00: 00 [facility] Over weight Over weight Disease Active 05-13 00:00: 00 [facility] of left fallopian tube of Left Fallopian Tube Problem Active 4-12 [facility] High risk due to recurrent loss High Risk Due to Recurrent Loss Problem Active 4-03 00:00: 00 [facility] History of abnormal cervical Pap smear History of abnormal cervical Pap smear Disease Active 5-13 00:00: 00 Overview: Formattin g of this note might be different from the original. 2016 Negative PAP [id number] Negative PAP +[id number] Negative PAP +HPV, negative [id number] Negative PAP and [id number] Negative PAP and [id number] pending [facility] Other general counseling and advice for contracept rishi management Other general counseling and advice for contracept rishi management Disease Resolve d 6-10 00:00: 00 2024-05-13 00:00:00 2024-05-13 13:17:52 [facility] Over weight Over weight Disease Resolve d 2016-10 00:00: 00 2024-05-13 00:00:00 2024-05-13 13:17:50 [facility] Cyst of right ovary Cyst of right ovary Disease Resolve d 04-13 00:00: 00 2023-03-03 00:00:00 2023-03-03 12:56:01 [facility] Susceptibl e to varicella (non-immun e), currently Susceptibl e to varicella (non-immun e), currently Disease Resolve d 6- 00:00: 00 2022-03-31 00:00:00 2022-03-31 16:16:07 [facility] Rubella non-immune status, antepartum Rubella non-immune status, antepartum Disease Resolve d 6- 00:00: 00 2022-03-31 00:00:00 2022-03-31 16:16:09 [facility] Supervisio n of high-risk Supervisio n of high-risk Disease Resolve d 6- 00:00: 00 2022-03-31 00:00:00 2022-03-31 16:16:10 [facility] History of miscarriag e History of miscarriag e Disease Resolve d 6- 00:00: 00 2022-03-31 00:00:00 2022-03-31 16:16:11 [facility] Vaginal bleeding in Vaginal bleeding in Disease Resolve d 6- 00:00: 00 2022-03-31 00:00:00 2022-03-31 16:16:05 [facility] Dysuria Dysuria Disease Resolve d 0 5-05 00:00: 00 2021-03-22 00:00:00 2021-03-22 16:30:58 [facility] Maternal varicella, non-immune Maternal varicella, non-immune Disease Resolve d 0 3-23 00:00: 00 2021-03-22 00:00:00 2021-03-22 16:31:00 [facility] Screening examinatio n for STD (sexually transmitte d disease) Screening examinatio n for STD (sexually transmitte d disease) Disease Resolve d 3-16 00:00: 00 2021-03-22 00:00:00 2021-03-22 16:31:03 [facility] UTI symptoms UTI symptoms Disease Resolve d 3-16 00:00: 00 2021-03-22 00:00:00 2021-03-22 16:31:05 [facility] Contracept rishi management Contracept rishi management Disease Resolve d 2016-10 00:00: 00 2021-03-22 00:00:00 2021-03-22 16:30:57 [facility] Miscarriag e Miscarriag e Disease Resolve d 11-10 00:00: 00 2017-09-21 00:00:00 2017-09-21 14:05:51 [facility] Other general counseling and advice for contracept rishi management Other general counseling and advice for contracept rishi management Disease Resolve d 11-10 00:00: 00 2017-09-21 00:00:00 2017-09-21 14:05:51 [facility] Missed Missed Disease Resolve d 2015-10 00:00: 00 2017-09-21 00:00:00 2017-09-21 14:05:50 [facility] Rubella non-immune status, antepartum Rubella non-immune status, antepartum Disease Resolve d 2015-10 00:00: 00 2017-09-21 00:00:00 2017-09-21 14:05:49 [facility] Supervisio n of high risk , antepartum Supervisio n of high risk , antepartum Disease Resolve d 2015-10 00:00: 00 2017-09-21 00:00:00 2017-09-21 14:05:47 [facility] Flu vaccine need Flu vaccine need Disease Resolve d 2015-10 00:00: 00 2017-09-21 00:00:00 2022-05-07 00:43:11 [facility] Surveillan ce of previously prescribed contracept rishi pill Surveillan ce of previously prescribed contracept rishi pill Disease Resolve d 03-30 00:00: 00 2016-09-06 00:00:00 2016-09-06 11:18:49 [facility] Allergies, Adverse Reactions, Alerts Allergy Name Allergy Type Status Severity Reaction(s) Onset Date Inactive Date Treating Clinician Comments Source codeine DA Active SV HIVES 04-08 00:00: 00 [facility] Codeine Propensi ty to adverse reaction s Active Hives 02-27 00:00: 00 [facility] CODEINE DRUG INGREDI Active [facility] 02-27 00:00: 00 [facility] Codeine Allergy to substanc e Active [facility] Social History Social Habit Start Date Stop Date Quantity Comments Source ASSERTION [facility] Alcoholic beverage intake 2024-11-19 00:00:00 2024-11-19 00:00:00 Current drinker of alcohol (finding) [facility] History of Social function 2024-05-13 00:00:00 2024-05-13 00:00:00 [facility] Alcohol intake 2023-11-13 00:00:00 2023-11-13 00:00:00 Current drinker of alcohol (finding) [facility] Exposure to SARS-CoV-2 (event) 2023-02-18 00:00:00 2023-02-28 06:11:00 Not sure [facility] Alcohol Comment 2023-02-28 00:00:00 2023-02-28 00:00:00 social [facility] Tobacco use and exposure 2022-06-21 00:00:00 2022-06-21 00:00:00 Smokeless tobacco non-user [facility] Sex assigned at 1995 00:00:00 1995 00:00:00 [facility] Smoking Status Start Date Stop Date Source Never smoked tobacco [facility] Medications Ordered Medication Name Filled Medication Name Start Date Stop Date Current Medication? Ordering Clinician Indication Dosage Frequency Signature (SIG) Comments Components Source metroNIDAZO LE 500 mg tablet 11-19 00:00: 00 Yes [id number] 500mg Take 1 tablet by mouth every 12 (twelve) hours. [facility] fluconazole 150 mg tablet 11-18 00:00: 00 Yes [id number] 150mg Take 1 tablet by mouth every 3 (three) days. [facility] norgestimat e-ethinyl estradioL (ORTHO TRI-CYCLEN, ,) 0.18/0.215/ 0.25 mg-35 mcg (28) tablet 2023-10 00:00: 00 Yes [id number] 1{tbl} Take 1 tablet by mouth in the morning. [facility] Nitrofurant oin&Nit. Macrocryst (MACROBID) 100 mg capsule 05-16 00:00: 00 05-27 04:59 :00 No [id number] 100mg Take 1 capsule by mouth in the morning and 1 capsule in the evening. Do all this for 10 days. [facility] metroNIDAZO LE 500 mg tablet 05-15 00:00: 00 05-23 04:59 :00 No [id number] 500mg Take 1 tablet by mouth in the morning and 1 tablet in the evening. Do all this for 7 days. [facility] fluconazole (DIFLUCAN) 150 mg tablet 05-15 00:00: 00 05-16 04:59 :00 No [id number] 150mg Take 1 tablet by mouth once now for 1 dose. [facility] phentermine HCl (PHENTERMIN E ORAL) 05-13 12:58: 39 Yes Take by mouth. [facility] norgestimat e-ethinyl estradioL (ORTHO TRI-CYCLEN, ,) 0.18/0.215/ 0.25 mg-35 mcg (28) tablet 05-13 00:00: 00 09-15 00:00 :00 No [id number] 1{tbl} Take 1 tablet by mouth in the morning. [facility] cefdinir 300 mg capsule 01-10 00:00: 05-13 00:00 :00 No [id number] 300mg Take 1 capsule by mouth every 12 (twelve) hours. [facility] fluconazole (DIFLUCAN) 150 mg tablet - 00:00: 00 05-13 00:00 :00 No [id number] 150mg Take 1 tablet by mouth every 72 (seventy-t wo) hours. [facility] Nitrofurant oin&Nit. Macrocryst (MACROBID) 100 mg capsule - 00:00: 00 05-13 00:00 :00 No [id number] 100mg Take 1 capsule by mouth in the morning and 1 capsule in the evening. [facility] fluconazole (DIFLUCAN) 150 mg tablet 03-02 00:00: 00 03-03 04:59 :00 No [id number] 150mg Take 1 tablet by mouth once now for 1 dose. Take second tablet in 1 week [facility] phentermine HCl (PHENTERMIN E ORAL) 02-28 08:20: 44 Yes Take by mouth. [facility] norgestimat e-ethinyl estradioL (ORTHO TRI-CYCLEN, 28,) 0.18/0.215/ 0.25 mg-35 mcg (28) tablet 16 00:00: 00 02-28 00:00 :00 No [id number] 1{tbl} Take 1 tablet by mouth in the morning. [facility] Nitrofurant oin&Nit. Macrocryst (MACROBID) 100 mg capsule 04-03 00:00: 00 02-28 00:00 :00 No [id number] 100mg Take 1 capsule by mouth 2 (two) times daily. [facility] PNV 67-iron ps-folate no.1-dha (VITAFOL ULTRA) 29 mg iron- 1 mg-200 mg Cap 03-22 00:00: 00 10-28 00:00 :00 No [id number] 1{each} Take 1 Each by mouth daily. [facility] norgestimat e-ethinyl estradioL 0.18/0.215/ 0.25 mg-25 mcg tablet 05 00:00: 10-28 00:00 :00 No [id number] 1{tbl} Take 1 tablet [facility] mouth daily. [facility] mg [facility] Take 1 tablet every 6 hours by oral route as needed. ibuprofen 800 mg tablet Take 1 tablet every 6 hours by oral route as needed. No 1 Q6H ibuprofen 800 mg tablet Take 1 tablet every 6 hours by oral route as needed. [facility] Diflucan 100 mg tablet Take 1 tablet every day by oral route for 3 days. Diflucan 100 mg tablet Take 1 tablet every day by oral route for 3 days. No 1 Q1D Diflucan 100 mg tablet Take 1 tablet every day by oral route for 3 days. [facility] Immunizations Ordered Immunization Name Filled Immunization Name Date Status Comments Source HPV9 2019-09-10 00:00:00 Completed [facility] HPV9 2019-09-10 00:00:00 Completed [facility] HPV9 2019-09-10 00:00:00 Completed [facility] HPV9 2019-09-10 00:00:00 Completed [facility] HPV9 2019-09-10 00:00:00 Completed [facility] HPV9 2019-09-10 00:00:00 Completed [facility] HPV9 2019-09-10 00:00:00 Completed [facility] HPV9 2019-06-17 00:00:00 Completed [facility] HPV9 2019-06-17 00:00:00 Completed [facility] HPV9 2019-06-17 00:00:00 Completed [facility] HPV9 2019-06-17 00:00:00 Completed [facility] HPV9 2019-06-17 00:00:00 Completed [facility] HPV9 2019-06-17 00:00:00 Completed [facility] HPV9 2019-06-17 00:00:00 Completed [facility] Influenza Virus Vaccine Quad IM 3+ YRS 2016-09-06 00:00:00 Completed Influenza Virus Vaccine Quad IM 3+ YRS 2016-09-06 00:00:00 Completed [facility] Influenza Virus Vaccine Quad IM 3+ YRS 2016-09-06 00:00:00 Completed [facility] Influenza Virus Vaccine Quad IM 3+ YRS 2016-09-06 00:00:00 Completed [facility] Influenza Virus Vaccine Quad IM 3+ YRS 2016-09-06 00:00:00 Completed [facility] Influenza Virus Vaccine Quad IM 3+ YRS 2016-09-06 00:00:00 Completed [facility] Influenza Virus Vaccine Quad IM 3+ YRS 2016-09-06 00:00:00 Completed [facility] TDAP 2009-10-22 00:00:00 Completed [facility] TDAP 2009-10-22 00:00:00 Completed [facility] TDAP 2009-10-22 00:00:00 Completed [facility] TDAP 2009-10-22 00:00:00 Completed [facility] TDAP 2009-10-22 00:00:00 Completed [facility] TDAP 2009-10-22 00:00:00 Completed [facility] TDAP 2009-10-22 00:00:00 Completed [facility] HPV9 Unknown Completed [facility] TDAP Unknown Completed [facility] Influenza Virus Vaccine Quad IM 3+ YRS Unknown Completed [facility] HPV9 Unknown Completed [facility] TDAP Unknown Completed [facility] Influenza Virus Vaccine Quad IM 3+ YRS Unknown Completed [facility] HPV9 Unknown Completed [facility] TDAP Unknown Completed [facility] Influenza Virus Vaccine Quad IM 3+ YRS Unknown Completed [facility] HPV9 Unknown Completed [facility] TDAP Unknown Completed [facility] Influenza Virus Vaccine Quad IM 3+ YRS Unknown Completed [facility] HPV9 Unknown Completed [facility] TDAP Unknown Completed [facility] Influenza Virus Vaccine Quad IM 3+ YRS Unknown Completed [facility] HPV9 Unknown Completed [facility] TDAP Unknown Completed [facility] Influenza Virus Vaccine Quad IM 3+ YRS Unknown Completed [facility] HPV9 Unknown Completed [facility] TDAP Unknown Completed [facility] Influenza Virus Vaccine Quad IM 3+ YRS Unknown Completed [facility] HPV9 Unknown Completed [facility] TDAP Unknown Completed [facility] Influenza Virus Vaccine Quad IM 3+ YRS Unknown Completed [facility] HPV9 Unknown Completed [facility] TDAP Unknown Completed [facility] Influenza Virus Vaccine Quad IM 3+ YRS Unknown Completed [facility] HPV9 Unknown Completed [facility] TDAP Unknown Completed [facility] Influenza Virus Vaccine Quad IM 3+ YRS Unknown Completed [facility] HPV9 Unknown Completed [facility] TDAP Unknown Completed [facility] Influenza Virus Vaccine Quad IM 3+ YRS Unknown Completed [facility] HPV9 Unknown Completed [facility] TDAP Unknown Completed [facility] Influenza Virus Vaccine Quad IM 3+ YRS Unknown Completed [facility] HPV9 Unknown Completed [facility] TDAP Unknown Completed [facility] Influenza Virus Vaccine Quad IM 3+ YRS Unknown Completed [facility] HPV9 Unknown Completed [facility] TDAP Unknown Completed [facility] Influenza Virus Vaccine Quad IM 3+ YRS Unknown Completed [facility] HPV9 Unknown Completed [facility] TDAP Unknown Completed [facility] Influenza Virus Vaccine Quad IM 3+ YRS Unknown Completed [facility] HPV9 Unknown Completed [facility] TDAP Unknown Completed [facility] Influenza Virus Vaccine Quad IM 3+ YRS Unknown Completed [facility] HPV9 Unknown Completed [facility] TDAP Unknown Completed [facility] Influenza Virus Vaccine Quad IM 3+ YRS Unknown Completed [facility] HPV9 Unknown Completed [facility] TDAP Unknown Completed [facility] Influenza Virus Vaccine Quad IM 3+ YRS Unknown Completed [facility] HPV9 Unknown Completed [facility] TDAP Unknown Completed [facility] Influenza Virus Vaccine Quad IM 3+ YRS Unknown Completed [facility] Vital Signs Vital Name Observation Time Observation Value Comments S ource Systolic blood pressure 2024-11-18 19:27:00 126 mm[Hg] [facility] Diastolic blood pressure 2024-11-18 19:27:00 78 mm[Hg] [facility] Heart rate 2024-11-18 19:27:00 70 [facility] 2024-11-18 19:27:00 36.67 Shelly [facility] Respiratory rate 2024-11-18 19:27:00 18 /min [facility] Body height 2024-11-18 19:27:00 154.9 cm [facility] Body weight 2024-11-18 19:27:00 75.206 kg [facility] BMI 2024-11-18 19:27:00 31.33 kg/m2 [facility] Systolic blood pressure 2024-05-13 17:53:00 115 mm[Hg] [facility] Diastolic blood pressure 2024-05-13 17:53:00 76 mm[Hg] [facility] Heart rate 2024-05-13 17:53:00 74 /min [facility] Body temperature 2024-05-13 17:53:00 36.67 Shelly [facility] Respiratory rate 2024-05-13 17:53:00 18 /min [facility] Body height 2024-05-13 17:53:00 154.9 cm [facility] Body weight 2024-05-13 17:53:00 70.398 kg [facility] BMI 2024-05-13 17:53:00 29.32 kg/m2 [facility] BP Systolic 2024-02-15 00:00:00 108 mm[Hg] [facility] BP Diastolic 2024-02-15 00:00:00 71 mm[Hg] [facility] BMI (Body Mass Index) 2024-02-15 00:00:00 30.6 kg/m2 [facility] Height 2024-02-15 00:00:00 60 [in_i] [facility] Body Weight 2024-02-15 00:00:00 156.9 [lb_av] [facility] BP Systolic 2024-02-01 00:00:00 113 mm[Hg] [facility] Body Weight 2024-02-01 00:00:00 157.3 [lb_av] [facility] BMI (Body Mass Index) 2024-02-01 00:00:00 30.7 kg/m2 [facility] BP Diastolic 2024-02-01 00:00:00 81 mm[Hg] [facility] Height 2024-02-01 00:00:00 60 [in_i] [facility] BP Systolic 2024-01-31 00:00:00 127 mm[Hg] [facility] Body Weight 2024-01-31 00:00:00 159.2 [lb_av] [facility] BMI (Body Mass Index) 2024-01-31 00:00:00 31.1 kg/m2 [facility] Height 2024-01-31 00:00:00 60 [in_i] [facility] BP Diastolic 2024-01-31 00:00:00 75 mm[Hg] [facility] Systolic blood pressure 2024-01-11 16:12:00 116 mm[Hg] [facility] Diastolic blood pressure 2024-01-11 16:12:00 79 mm[Hg] [facility] Heart rate 2024-01-11 16:12:00 85 /min [facility] Body temperature 2024-01-11 16:12:00 36.61 Shelly [facility] Respiratory rate 2024-01-11 16:12:00 18 /min [facility] Body height 2024-01-11 16:12:00 154.9 cm [facility] Body weight 2024-01-11 16:12:00 71.532 kg [facility] BMI 2024-01-11 16:12:00 29.80 kg/m2 [facility] Oxygen saturation in Arterial blood by Pulse oximetry 2024-01-11 16:12:00 99 /min [facility] Systolic blood pressure 2023-10-24 19:18:00 119 mm[Hg] [facility] Diastolic blood pressure 2023-10-24 19:18:00 75 mm[Hg] [facility] Heart rate 2023-10-24 19:18:00 98 /min [facility] Body temperature 2023-10-24 19:18:00 37.17 Shelly [facility] Respiratory rate 2023-10-24 19:18:00 16 /min [facility] Body weight 2023-10-24 19:18:00 70.308 kg [facility] BMI 2023-10-24 19:18:00 31.31 kg/m2 [facility] Oxygen saturation in Arterial blood by Pulse oximetry 2023-10-24 19:18:00 97 /min [facility] Systolic blood pressure 2023-02-28 13:12:00 123 mm[Hg] [facility] Diastolic blood pressure 2023-02-28 13:12:00 88 mm[Hg] [facility] Heart rate 2023-02-28 13:12:00 91 /min [facility] Body temperature 2023-02-28 13:12:00 36.83 Shelly [facility] Respiratory rate 2023-02-28 13:12:00 18 /min [facility] Body height 2023-02-28 13:12:00 149.9 cm [facility] Body weight 2023-02-28 13:12:00 66.395 kg [facility] BMI 2023-02-28 13:12:00 29.56 kg/m2 [facility] BP Diastolic 2022-11-02 00:00:00 72 mm[Hg] [facility] Height 2022-11-02 00:00:00 64 [in_i] [facility] BMI (Body Mass Index) 2022-11-02 00:00:00 25 kg/m2 [facility] BP Systolic 2022-11-02 00:00:00 108 mm[Hg] [facility] Body Weight 2022-11-02 00:00:00 145.4 [lb_av] [facility] BP Diastolic 2022-10-12 00:00:00 83 mm[Hg] [facility] Height 2022-10-12 00:00:00 64 [in_i] [facility] BMI (Body Mass Index) 2022-10-12 00:00:00 24.6 kg/m2 [facility] BP Systolic 2022-10-12 00:00:00 114 mm[Hg] [facility] Body Weight 2022-10-12 00:00:00 143.3 [lb_av] [facility] BP Diastolic 2022-09-12 00:00:00 79 mm[Hg] [facility] Height 2022-09-12 00:00:00 64 [in_i] [facility] BMI (Body Mass Index) 2022-09-12 00:00:00 25.6 kg/m2 [facility] BP Systolic 2022-09-12 00:00:00 119 mm[Hg] [facility] Body Weight 2022-09-12 00:00:00 148.9 [lb_av] [facility] Systolic blood pressure 2022-07-07 20:00:00 107 mm[Hg] [facility] Diastolic blood pressure 2022-07-07 20:00:00 67 mm[Hg] [facility] Heart rate 2022-07-07 20:00:00 74 /min [facility] Body temperature 2022-07-07 20:00:00 36.44 Shelly [facility] Respiratory rate 2022-07-07 20:00:00 18 /min [facility] Body height 2022-07-07 20:00:00 149.9 cm [facility] Body weight 2022-07-07 20:00:00 64.921 kg [facility] BMI 2022-07-07 20:00:00 28.91 kg/m2 [facility] Procedures Procedure Date / Time Performed Performing Clinician Source HIV 1/2 AG-AB WITH REFLEX 2024-11-18 20:06:00 Ruslan [facility] SYPHILIS IGG/IGM 2024-11-18 20:06:00 [facility] - VAGINAL PATHOGENS BY NUCLEIC ACID TESTING 2024-11-18 20:02:00 Shelby [facility]cer [facility] [place] POCT TEST 2024-11-18 19:52:00 Shelby Mercer [facility] [place] ULTRASOUND, UTERUS REAL TIME WITH IMAGE DOCUMENTAITON, TRANSVAGINAL 2024-01-31 00:00:00 [facility] ULTRASOUND, UTERUS REAL TIME WITH IMAGE DOCUMENTAITON, TRANSVAGINAL 2024-01-23 00:00:00 [facility] POCT URINALYSIS 2024-01-11 00:00:00 Radha Tapia Un [facility] POCT TEST 2024-01-11 00:00:00 Gwendolyn Tapia [facility] [place] POCT TEST 2023-10-24 19:23:00 Gwendolyn Tapia y [facility] [place] GALV ONLY - VAGINAL PATHOGENS BY NUCLEIC ACID TESTING 2023-10-24 19:20:00 Radha Tapia [facility] [place] POCT URINALYSIS 2023-10-24 19:19:00 Radha Tapia Un [facility] ASSIGNMENT OF BENEFITS 2023-10-24 19:09:13 Docto r Unassigned, [place] [facility] [place] CBC WITH DIFF 2023-02-28 13:55:00 Ena Dalton [facility] [place] GLYCOSYLATED HEMOGLOBIN (A1C) 2023-02-28 13:55:00 Ena Dalton [facility] [place] HCV ANTIBODY 2023-02-28 13:55:00 Ena Dalton U [facility] GC & CHLAMYDIA AMPLIFIED ASSAY 2023-02-28 13:55:00 Ena Dalton [facility] [place] GALV ONLY - VAGINAL PATHOGENS BY NUCLEIC ACID TESTING 2023-02-28 13:55:00 Ena Dalton [facility] [place] HIV 1/2 AG-AB WITH REFLEX 2023-02-28 13:55:00 Ena Dalton [facility] [place] SYPHILIS IGG/IGM 2023-02-28 13:55:00 Ena Dalton [facility] [place] ASSIGNMENT OF BENEFITS 2023-02-28 12:47:02 Docto r Unassigned, [place] [facility], transvaginal 2022-11-16 00:00:00 [facility] REFERRAL- REQUEST/RESPONSE 2022-10-14 06:01:00 Doctor Unassigned, [place] [facility], transvaginal 2022-09-12 00:00:00 [facility] POCT TEST 2022-07-07 20:02:00 Meet Hicks [facility] [place] Salpingectomy, Laparoscopic (Surg) [facility] Plan of Care Planned Activity Planned Date Details Comments Source Diagnostic Test Pending 2024-02-15 00:00:00 urinalysis, dipstick [code = urinalysis, dipstick] [facility] Diagnostic Test Pending 2024-02-15 00:00:00 wet mount, vaginal [code = wet mount, vaginal] [facility] Instructions [facility] Encounters Start Date/Time End Date/Time Encounter Type Admission Type Attending Clinicians Care Facility Care Department Encounter ID Source 2022-10-12 10:36:13 Outpatient [facility] [id number] [facility] 2024-11-19 00:00:00 2024-11-19 13:57:55 Case Management Shelby Mercer [facility] ..840.114 350.1.13.10 4.2.7.2.686 [id number] 107 [id number] [facility] 2024-11-18 13:00:00 2024-11-18 14:02:40 Outpatient R SHELBY MERCER [facility] [id number] [facility] 2024-11-18 13:00:00 2024-11-18 14:02:40 Office Visit Shelby Mercer [facility] 1..840.114 350.1.13.10 4.2.7.2.686 [id number] 107 [id number] [facility] 2024-09-15 00:00:00 2024-09-15 09:07:09 Refill Stephanie Hicks [facility] 1..840.114 350.1.13.10 4.2.7.2.686 [id number] 107 [id number] [facility] 2024-09-15 00:00:00 2024-09-15 09:04:53 Refill Stephanie Hicks [facility] 1.2840.114 350.1.13.10 4.2.7.2.686 [id number] 107 [id number] [facility] 2024-09-14 00:00:00 2024-09-15 07:57:34 Refill Stephanie Hicks [facility] 1.840.114 350.1.13.10 4.2.7.2.686 [id number] 107 [id number] [facility] 2024-09-02 09:45:00 2024-09-02 09:45:00 Outpatient R STEPHANIE HICKS [facility] [id number] [facility] 2024-05-16 00:00:00 2024-05-16 15:58:25 Telephone Ena Dalton [facility] 1.0.114 350.1.13.10 4.2.7.2.686 [id number] 107 [id number] [facility] 2024-05-15 00:00:00 2024-05-15 07:53:35 Case Management Ena Dalton [facility] 1.840.114 350.1.13.10 4.2.7.2.686 [id number] 107 [id number] [facility] 2024-05-13 12:45:00 2024-05-13 13:28:19 Outpatient R STEPHANIE HICKS [facility] [id number] [facility] 2024-05-13 12:45:00 2024-05-13 13:00:00 Office Visit Stephanie Hicks [facility] 1.840.114 350.1.13.10 4.2.7.2.686 [id number] 107 [id number] [facility] 2024-04-10 15:15:00 2024-04-10 15:15:00 Outpatient SHELBY MAO [facility] [id number] [facility] 2024-04-08 21:43:00 2024-04-09 01:18:00 Emergency EM Flor Rouse [facility] [id number] [facility] 2024-02-15 00:00:00 2024-02-15 00:00:00 Elise Hernandez MD: [address], [address], [place] [address] , Ph. [phone] [facility] [id number] [facility] 2024-02-01 14:23:00 2024-02-01 14:23:00 Outpatient ELISE [facility] [id number] [facility] 2024-02-01 00:00:00 2024-02-01 00:00:00 Elise Hernandez MD: [address] [place] [address], [address], [place] [address] , Ph. [phone] [facility] [id number] [facility] 2024-01-31 15:00:00 2024-01-31 15:00:00 Outpatient ELISE [facility] [id number] [facility] 2024-01-31 00:00:00 2024-01-31 00:00:00 Elise Hernandez MD: [address] [place] [address], [address], [place] [address] , Ph. [phone] [facility] [place] [id number] 0411 [facility] 2024-01-29 00:00:00 2024-01-29 00:00:00 Outpatient White_M [facility] [id number] [facility] 2024-01-25 14:19:00 2024-01-25 14:19:00 Outpatient JANE [facility]LES [facility] [id number] [facility] 2024-01-23 09:29:00 2024-01-23 09:29:00 Outpatient J[facility] [id number] [facility] 2024-01-23 00:00:00 2024-01-23 00:00:00 Jane Titus, ED SPECIAL EDUCATION TEACHER-BC: [address] [facility], [address], [place] [address] , Ph. [phone] White[facility] [place] [id number] [facility] 2024-01-22 08:15:00 2024-01-22 08:15:00 Outpatient ENA CONTEH [facility] [id number] [facility] 2024-01-16 00:00:00 2024-01-16 00:00:00 Outpatient White_M [facility] [id number] [facility] 2024-01-11 14:00:00 2024-01-11 14:00:00 Outpatient Kinsey SANCHEZ, ATTENDING [facility] [id number] [facility] 2024-01-11 11:00:00 2024-01-11 11:20:14 Outpatient RADHA DYE [facility] [id number] [facility] 2024-01-11 11:00:00 2024-01-11 11:20:14 Urgent Care Radha Tapia, Attending [facility] 1.2.840.114 350.1.13.10 4.2.7.2.686 [id number] [facility] 2023-10-24 13:00:00 2023-10-24 13:27:23 Outpatient RADHA DYE [facility] [id number] [facility] 2023-10-24 13:00:00 2023-10-24 13:27:23 Urgent Care Radha Tapia Unknown, Attending [facility] 1.114 350.1.13.10 4.2.7.2.686 [id number] 370 [id number] [facility] 2023-10-24 00:00:00 2023-10-24 00:00:00 Orders Only Doctor Unassigned, [place] [facility] 1.114 350.1.13.10 4.2.7.2.686 [id number] [facility] 2023-04-23 13:15:00 2023-04-23 13:15:00 Outpatient R STEPHANIE HICKS [facility] [id number] [facility] 2023-04-02 14:30:00 2023-04-02 14:30:00 Outpatient R IVY MONTEJO [facility] [id number] [facility] 2023-03-31 00:00:00 2023-03-31 00:00:00 Patient Secure Msg Ena Dalton [facility] 1..114 350.1.13.10 4.2.7.2.686 [id number] 107 [id number] [facility] 2023-03-02 00:00:00 2023-03-02 00:00:00 Case Management Ena Dalton [facility] 1.0.114 350.1.13.10 4.2.7.2.686 [id number] 107 [id number] [facility] 2023-03-02 00:00:00 2023-03-02 00:00:00 Telephone Stephanie Hicks [facility] 1.840.114 350.1.13.10 4.2.7.2.686 [id number] 107 [id number] [facility] 2023-03-02 00:00:00 2023-03-02 00:00:00 Patient Secure Msg Staci Ena Dante [facility] 1.2.840.114 350.1.13.10 4.2.7.2.686 [id number] 107 [id number] [facility] 2023-02-28 07:45:00 2023-02-28 08:57:53 Outpatient R STACI ENA [facility] [id number] [facility] 2023-02-28 07:45:00 2023-02-28 08:57:53 Office Visit Portiaaminata Ena Howell [facility] 1.2.840.114 350.1.13.10 4.2.7.2.686 [id number] 107 [id number] [facility] 2023-02-28 00:00:00 2023-02-28 00:00:00 Orders Only Doctor Unassigned, [place] [facility] 1.2.840.114 350.1.13.10 4.2.7.2.686 [id number] [facility] 2023-01-30 14:45:00 2023-01-30 14:45:00 Outpatient R ENA DALTON [facility] [id number] [facility] 2022-12-19 14:30:00 2022-12-19 14:30:00 Outpatient VELIA BAINS [facility] [id number] [facility] 2022-11-16 00:00:00 2022-11-16 00:00:00 Outpatient Jose Raul FONTANEZ [facility] [id number] [facility] 2022-11-16 00:00:00 2022-11-16 00:00:00 BISHOP Gray-BC: [address] [address] , Ph. [phone] [facility]YN [id number] [facility] 2022-11-02 15:26:00 2022-11-02 15:26:00 Outpatient JANE [facility] [id number] [facility] 2022-11-02 00:00:00 2022-11-02 00:00:00 Jane SKYLAR TitusPEbonyBC: [address] [facility] [address] [place] [address] , Ph. [phone] [facility] [id number] [facility] 2022-10-14 00:00:00 2022-10-14 00:00:00 Orders Only Doctor Unassigned, [place] [facility] 1.2.840.114 350.1.13.10 4.2.7.2.686 [id number] [facility] 2022-10-12 00:00:00 2022-10-12 00:00:00 Outpatient White_M [facility] [id number] [facility] 2022-10-12 00:00:00 2022-10-12 00:00:00 Outpatient White_M [facility] [place] [id number] [facility] 2022-10-12 00:00:00 2022-10-12 00:00:00 Jane TK Titus: [address] [address] , Ph. [phone] [facility] [id number] [facility] 2022-10-06 09:00:00 2022-10-06 09:00:00 Outpatient STEPHANIE BAKER [facility] [id number] [facility] 2022-09-12 15:04:00 2022-09-12 15:04:00 Outpatient [facility] [id number] [facility] 2022-09-12 00:00:00 2022-09-12 00:00:00 Outpatient Ariela_Yessi [facility] [id number] [facility] 2022-09-12 00:00:00 2022-09-12 00:00:00 SKYLAR GrayP-BC: [address] [facility] [address], [place] [address] , Ph. [phone] [facility] [place] [facility] [place] [facility] [id number] [facility] 2022-07-07 14:45:00 2022-07-07 15:27:14 Office Visit Stephanie Hicks [facility] .840.114 350.1.13.10 4.2.7.2.686 [id number] 107 [id number] [facility] 2022-07-07 14:45:00 2022-07-07 15:27:14 Outpatient R STEPHANIE HICKS [facility] [id number] [facility] 2022-07-07 14:45:00 2022-07-07 14:45:00 Outpatient R STEPHANIE HICKS [facility] [id number] [facility] 2022-07-07 08:15:00 2022-07-07 08:15:00 Outpatient R RICHARD AMAYA [facility] [id number] [facility] 2022-06-27 00:00:00 2022-06-27 00:00:00 Patient Secure Msg Stephanie Hicks [facility] ..840.114 350.1.13.10 4.2.7.2.686 [id number] 107 [id number] [facility] 2022-06-21 10:30:00 2022-06-21 11:49:35 Office Visit Stephanie Hicks [facility] ..840.114 350.1.13.10 4.2.7.2.686 [id number] 107 [id number] [facility] 2022-06-21 10:30:00 2022-06-21 11:49:35 Outpatient R STEPHANIE HICKS [facility] [id number] [facility] 2022-06-21 10:30:00 2022-06-21 10:30:00 Outpatient R SILVINOALFREDITOSTEPHANIE [facility] [id number] [facility] 2022-06-19 10:15:00 2022-06-19 10:15:00 Outpatient R SILVINOALFREDITOSTEPHANIE [facility] [id number] [facility] 2022-06-16 14:00:00 2022-06-16 14:00:00 Outpatient R KAY STEPHANIE [facility] [id number] [facility] 2022-06-16 00:00:00 2022-06-16 00:00:00 Telephone Stephanie Hicks [facility] 1.2.840.114 350.1.13.10 4.2.7.2.686 [id number] 107 [id number] [facility] 2022-04-25 08:15:00 2022-04-25 08:15:00 Outpatient R STEPHANIE HICKS [facility] [id number] [facility] 2022-04-18 14:15:00 2022-04-18 14:15:00 Outpatient R KAY STEPHANIE [facility] [id number] [facility] 2022-04-14 00:00:00 2022-04-14 00:00:00 Telephone Stephanie Hicks [facility] 1.2.840.114 350.1.13.10 4.2.7.2.686 [id number] 107 [id number] [facility] 2022-04-14 00:00:00 2022-04-14 00:00:00 Patient Secure Msg Stephanie Hicks [facility] 1.2.840.114 350.1.13.10 4.2.7.2.686 [id number] 107 [id number] [facility] 2022-04-04 00:00:00 2022-04-04 00:00:00 Patient Secure Msg Stephanie Hicks [facility] 1.2.840.114 350.1.13.10 4.2.7.2.686 [id number] 107 [id number] [facility] 2022-04-03 00:00:00 2022-04-03 00:00:00 Patient Secure Stephanie Jacobs [facility] 1.2.840.114 350.1.13.10 4.2.7.2.686 [id number] 107 [id number] [facility] 2022-04-03 00:00:00 2022-04-03 00:00:00 Telephone Stephanie Hicks [facility] 1.2.840.114 350.1.13.10 4.2.7.2.686 [id number] 107 [id number] [facility] 2022-03-31 16:00:00 2022-03-31 16:29:52 Outpatient R JERRYLINDA STEPHANIE [facility] [id number] [facility] 2022-03-31 16:00:00 2022-03-31 16:29:52 Office Visit Stephanie Hicks [facility] 1.2.840.114 350.1.13.10 4.2.7.2.686 [id number] 107 [id number] [facility] 2022-03-31 00:00:00 2022-03-31 00:00:00 Orders Only Doctor Unassigned, [place] [facility] 1.2.840.114 350.1.13.10 4.2.7.2.686 [id number] [facility] 2022-01-30 13:00:00 2022-01-30 13:00:00 Outpatient R KARLA BURRELL [facility] [id number] [facility] 2021-11-12 00:00:00 2021-11-12 00:00:00 Patient Secure Msg Doctor Unassigned, [place] [facility] 1.840.114 350.1.13.10 4.2.7.2.686 [id number] [facility] 2021-11-11 14:00:00 2021-11-11 14:00:00 Outpatient R STEPHANIE HICKS [facility] [id number] [facility] 2021-11-11 14:00:00 2021-11-11 14:00:00 Outpatient R STEPHANIE HICKS [facility] [id number] [facility] 2021-10-28 13:45:00 2021-10-28 14:59:43 Outpatient R STEPHANIE HICKS [facility] [id number] [facility] 2021-10-28 13:45:00 2021-10-28 14:59:43 Office Visit Stephanie Hicks [facility] 1.840.114 350.1.13.10 4.2.7.2.686 [id number] 107 [id number] [facility] 2021-05-25 00:00:00 2021-05-25 00:00:00 Telephone Stephanie Hicks [facility] 1.840.114 350.1.13.10 4.2.7.2.686 [id number] 107 [id number] [facility] 2021-05-24 15:15:00 2021-05-24 15:15:00 Outpatient R STEPHANIE HICKS [facility] [id number] [facility] 2021-05-11 16:00:00 2021-05-11 16:00:00 Outpatient R STEPHANIE HICKS [facility] [id number] [facility] 2021-04-26 00:00:00 2021-04-26 00:00:00 Telephone Stephanie Hicks [facility] 1.840.114 350.1.13.10 4.2.7.2.686 [id number] 107 [id number] [facility] 2021-04-14 13:45:00 2021-04-14 13:45:00 Outpatient P [facility] [id number] [facility] 2021-04-05 15:45:00 2021-04-05 15:45:00 Outpatient R STEPHANIE HICKS [facility] [id number] [facility] 2021-04-04 00:00:00 2021-04-04 00:00:00 Patient Secure Msg Doctor Unassigned, [place] [facility] 1.840.114 350.1.13.10 4.2.7.2.686 [id number] 107 [id number] [facility] 2021-03-30 00:00:00 2021-03-30 00:00:00 Patient Secure Msg Doctor Unassigned, [place] [facility] 1.840.114 350.1.13.10 4.2.7.2.686 [id number] [facility] 2021-03-25 00:00:00 2021-03-25 00:00:00 Telephone Stephanie Hicks [facility] 1..840.114 350.1.13.10 4.2.7.2.686 [id number] 107 [id number] [facility] 2021-03-25 00:00:00 2021-03-25 00:00:00 Telephone Stephanie Hicks [facility] 1.2840.114 350.1.13.10 4.2.7.2.686 [id number] 107 [id number] 2021-03-24 10:30:23 2021-03-24 10:47:41 Security Systems Sales Representative Visit Lab, [facility] Ida Varela [facility] 1.20.114 350.1.13.10 4.2.7.2.686 [id number] 107 [id number] [facility] 2021-03-24 10:30:00 2021-03-24 10:30:00 Outpatient R [facility] [id number] [facility] 2021-03-24 00:00:00 2021-03-24 00:00:00 Patient Secure Msg Doctor Unassigned, [place] [facility] 1.20.114 350.1.13.10 4.2.7.2.686 [id number] [facility] 2021-03-24 00:00:00 2021-03-24 00:00:00 Telephone Stephanie Hicks [facility] 1.2840.114 350.1.13.10 4.2.7.2.686 [id number] 107 [id number] [facility] 2021-03-23 00:00:00 2021-03-23 00:00:00 Patient Secure Msg Richard Amaya R [facility] 1.20.114 350.1.13.10 4.2.7.2.686 [id number] 107 [id number] [facility] 2021-03-22 15:10:35 2021-03-22 15:25:35 Initial Visit Stephanie Hicks [facility] 1.2.840.114 350.1.13.10 4.2.7.2.686 [id number] 107 [id number] [facility] 2021-03-22 15:00:00 2021-03-22 15:00:00 Outpatient R STEPHANIE HICKS [facility] [id number] [facility] 2021-03-22 00:00:00 2021-03-22 00:00:00 Orders Only Doctor Unassigned, [place] [facility] 1.840.114 350.1.13.10 4.2.7.2.686 [id number] [facility] 2021-02-23 13:08:12 2021-02-23 13:35:01 Office Visit Richard Amaya [facility] 1.840.114 350.1.13.10 4.2.7.2.686 [id number] 107 [id number] [facility] 2021-02-23 13:00:00 2021-02-23 13:00:00 Outpatient R RICHARD AMAYA [facility] [id number] [facility] 2021-02-16 09:30:00 2021-02-16 09:30:00 Outpatient R [facility] [id number] [facility] 2021-02-16 09:30:00 2021-02-16 09:30:00 Outpatient R RICHARD AMAYA [facility] [id number] [facility] 2021-02-14 00:00:00 2021-02-14 00:00:00 Patient Secure Msg Doctor Unassigned, [place] [facility] 1.840.114 350.1.13.10 4.2.7.2.686 [id number] [facility] 2021-02-14 00:00:00 2021-02-14 00:00:00 Patient Secure Msg Doctor Unassigned, [place] [facility] 1..114 350.1.13.10 4.2.7.2.686 [id number] [facility] 2021-02-02 10:05:24 2021-02-02 11:11:24 Routine Visit Richard Amaya [facility] & [facility]ILD [facility] 1.840.114 350.1.13.10 4.2.7.2.686 [id number] [facility] 2021-02-02 10:00:00 2021-02-02 10:00:00 Outpatient R AMAYAJACYJAYA [facility] [id number] [facility] 2021-02-02 00:00:00 2021-02-02 00:00:00 Orders Only Doctor Unassigned, [place] [facility] 1.0.114 350.1.13.10 4.2.7.2.686 [id number] [facility] 2021-02-01 14:45:00 2021-02-01 14:45:00 Outpatient R AMAYARICHARD [facility] [id number] [facility] 2021-01-31 13:45:00 2021-01-31 13:45:00 [facility] [id number] [facility] 2021-01-11 00:00:00 2021-01-11 00:00:00 Patient Outreach Pardeep Amaro [facility] 1..114 350.1.13.10 4.2.7.2.686 [id number] [facility] 2021-01-10 14:26:11 2021-01-10 15:14:43 Initial Visit Richard Amaya [facility] [facility] 1.0.114 350.1.13.10 4.2.7.2.686 [id number] 107 [id number] [facility] 2021-01-10 14:00:00 2021-01-10 14:00:00 Outpatient R JACY AMAYAZITAJAYA [facility] [id number] [facility] 2021-01-10 00:00:00 2021-01-10 00:00:00 Orders Only Doctor Unassigned, [place] [facility] 1.840.114 350.1.13.10 4.2.7.2.686 [id number] [facility] 2021-01-03 14:00:00 2021-01-03 14:00:00 Outpatient R [facility] [id number] [facility] 2021-01-03 12:45:00 2021-01-03 12:45:00 Outpatient R JACY AMAYAROSA [facility] [id number] [facility] 2020-12-28 13:15:00 2020-12-28 13:15:00 Outpatient R JACY AMAYAROSA [facility] [id number] [facility] 2020-11-29 00:00:00 2020-11-29 00:00:00 Telephone AmayaRichard [facility] 1.2.840.114 350.1.13.10 4.2.7.2.686 [id number] 107 [id number] [facility] 2020-11-24 14:45:48 2020-11-24 15:26:28 Office Visit AmayaRichard [facility] 1.2.840.114 350.1.13.10 4.2.7.2.686 [id number] 107 [id number] [facility] 2020-11-24 14:45:00 2020-11-24 14:45:00 Outpatient R AMAYARICHARD [facility] [id number] [facility] 2020-11-24 00:00:00 2020-11-24 00:00:00 Orders Only Doctor Unassigned, [place] [facility] 1.2.840.114 350.1.13.10 4.2.7.2.686 [id number] [facility] 2020-09-14 13:30:00 2020-09-14 13:30:00 Outpatient R RICHARD AMAYA [facility] [id number] [facility] 2020-09-13 00:00:00 2020-09-13 00:00:00 Telephone AmayaRichard [facility] 1.2.840.114 350.1.13.10 4.2.7.2.686 [id number] 107 [id number] [facility] 2020-09-09 15:00:00 2020-09-09 15:00:00 Outpatient RICHARD GRAVES [facility] [id number] [facility] 2020-09-01 12:45:00 2020-09-01 12:45:00 Outpatient R RICHARD AMAYA [facility] [id number] [facility] 2020-09-01 12:45:00 2020-09-01 12:45:00 Outpatient R RICHARD AMAYA [facility] [id number] [facility] 2020-07-29 09:45:00 2020-07-29 09:45:00 Outpatient R BUNNY HICKSILOLA [facility] [id number] [facility] 2020-07-29 09:45:00 2020-07-29 09:45:00 Outpatient R AKINSIBUNNY GLASERSTEPHANIE [facility] [id number] [facility] 2020-06-08 10:45:00 2020-06-08 10:45:00 Outpatient R AKINSIBUNNY GLASERSTEPHANIE [facility] [id number] [facility] 2020-06-08 10:45:00 2020-06-08 10:45:00 Outpatient R AKINBUNNY MCKEONILOLA [facility] [id number] [facility] 2020-04-13 11:00:57 2020-04-13 11:44:15 Office Visit AmayaRichard [facility] 1..114 350.1.13.10 4.2.7.2.686 [id number] 107 [id number] [facility] 2020-04-13 11:00:00 2020-04-13 11:00:00 Outpatient R RICHARD AMAYA [facility] [id number] [facility] 2020-04-13 09:45:00 2020-04-13 09:45:00 Outpatient IDA KNOWLES [facility] [id number] [facility] 2020-03-09 10:30:00 2020-03-09 10:30:00 Outpatient RICHARD GRAVES [facility] [id number] [facility] 2020-03-04 00:00:00 2020-03-04 00:00:00 Telephone Ida Varela [facility] ..114 350.1.13.10 4.2.7.2.686 [id number] 107 [id number] [facility] 2020-01-12 15:30:00 2020-01-12 15:30:00 Outpatient IDA KNOWLES [facility] [id number] [facility] 2020-01-07 00:00:00 2020-01-07 00:00:00 Patient Secure Msg Doctor Unassigned, [place] [facility] ..114 350.1.13.10 4.2.7.2.686 [id number] 107 [id number] [facility] 2020-01-05 13:19:07 2020-01-05 14:07:46 Office Visit Stephanie Hicks [facility] 1..114 350.1.13.10 4.2.7.2.686 [id number] 107 [id number] [facility] 2020-01-05 13:15:00 2020-01-05 13:15:00 Outpatient R STEPHANIE HICKS [facility] [id number] [facility] 2019-12-12 08:00:00 2019-12-12 08:00:00 Outpatient R RICHARD AMAYA [facility] [id number] [facility] 2019-12-11 00:00:00 2019-12-11 00:00:00 Patient Secure Msg Ida Varela [facility] 1.2.840.114 350.1.13.10 4.2.7.2.686 [id number] 107 [id number] [facility] 2019-12-08 11:15:24 2019-12-08 11:43:05 Office Visit Richard Amaya [facility] 1.2.840.114 350.1.13.10 4.2.7.2.686 [id number] 107 [id number] [facility] 2019-12-08 00:00:00 2019-12-08 00:00:00 Orders Only Doctor Unassigned, [place] [facility] 1.2.840.114 350.1.13.10 4.2.7.2.686 [id number] [facility] 2019-11-28 00:00:00 2019-11-28 00:00:00 Telephone Ida Varela [facility] 1.2.840.114 350.1.13.10 4.2.7.2.686 [id number] 107 [id number] [facility] 2019-11-25 08:40:20 2019-11-25 09:30:23 Office Visit Ida Varela [facility] 1.2.840.114 350.1.13.10 4.2.7.2.686 [id number] 107 [id number] [facility] 2019-11-25 00:00:00 2019-11-25 00:00:00 Telephone Ida Varela [facility] 1.2.840.114 350.1.13.10 4.2.7.2.686 [id number] 107 [id number] [facility] 2019-11-05 00:00:00 2019-11-05 00:00:00 Telephone SilvinoStephanie glaser [facility] 1.2.840.114 350.1.13.10 4.2.7.2.686 [id number] 107 [id number] [facility] 2019-06-17 12:53:35 2019-06-17 13:48:17 Office Visit Ida [facility]arela [facility] 1.2.840.114 350.1.13.10 4.2.7.2.686 [id number] 107 [id number] [facility] 2019-06-17 00:00:00 2019-06-17 00:00:00 Orders Only Doctor Unassigned, [place] [facility] 1.2.840.114 350.1.13.10 4.2.7.2.686 [id number] [facility] Results Test Description Test Time Test Comments Results Result Co mments Source [facility] [id number] 23:45:00* Test Item Value Reference Range Interpretation Comme nts HCG SERUM (test code = HCG) 2719 mIU/mL INTERPRETATION:V ALUES BETWEEN 15-20 milliInternational units/mL NEED TO BERETESTED WITHIN 48 HOURS. All units for these ranges are in milliInternationalunits/mL0 -1 WK AFTER CONCEPTION 0-50 1-2 WKS AFTER CONCEPTION 40-3002-3 WKS AFTER CONCEPTION 100-1,0003-4 WKS AFTER CONCEPTION 500-6,0001-2 MONTHS AFTER CONCEPTION 5,000-200,0002-3 MONTHS AFTER CONCEPTION 10,000-100,0002ND TRIMESTER 3,000-50,0003RD TRIMESTER 1,000-50,000 SPECIMENS WITH AN HCG LEVEL FROM 0-6 milliInternationalunits/mL SHOULD BE CONSIDERED NEGATIVE - DUP AB/PEL/SC/[id number] 23:00:00 [facility] : 1995 Sex: FPatient Name: DEREK KIM Unit No: [id number] EXAMS: CPT CODE: [id number] DUP AB/PEL/SC/LTD 78309 EXAM: - US PREG EVAL 1ST TRIMTR, - US PREG UT TRANSVAGINAL, - DUP AB/PEL/SC/LTD 04/08/2024 10:57 PM CLINICAL INFORMATION: Vaginal bleeding. TECHNIQUE: Transabdominal and transvaginal horowitz-scale and color Doppler ultrasound of the pelvis was performed. COMPARISON: None FINDINGS: Uterus: 8.2 x 4.7 x6.2 cm. Thickened endometrium measures 1.7 cm with multiple nonspecific prominent vessels/vasculature within the myometrium. No intrauterine identified. Right ovary: 3.9 x 2.9 x 3 cm. Normal blood flow on Doppler interrogation. Echogenic structure in the right adnexa measures 2.1 x 1.3 x 1.7 cm. Left ovary: 2.3 x 1.6 x 1.5 cm. Normal blood flow on Doppler interrogation. No suspicious mass. Other: No free fluid in the pelvis. IMPRESSION: No intrauterine . Echogenic structure in the right adnexa measuring 2.1 x 1.3 x 1.7 cm may represent an ectopic . Thickened endometrium measures 1.7 cm with multiple nonspecific prominent vessels/vasculature within the myometrium. at 2300 Reported and signed by: Darinel Hall M.D. CC: Flor Rouse MD Technologist: Luma Watkins RDMS Probe: TrnscrbdD/ (2300) [email or web address] Orig Print D/T: S: 04/08/2024 (2304) [facility] NAME: DEREK KIM Radiology Department PHYS: Flor Rouse MD [address] : 1995 AGE: 28 SEX: F [place] [address] LOC: Alejandro.ERS PHONE #: [phone] EXAM DATE: 04/08/2024 STATUS: REG ER FAX #: [phone] RAD NO: Page 1 Signed Report Patient Name: JULIODEREK Unit No: [id number] EXAMS: CPT CODE: [id number] DUP AB/PEL/SC/LTD 49131 (Continued) [facility] NAME: DEREK KIM Radiology Department PHYS: IMELDAEmerson Apolinar Rouse MD [address] : 1995 AGE: 28 SEX: F [place] [address] LOC: F.ERS PHONE #: [phone] EXAM DATE: 04/08/2024 STATUS: REG ER FAX #: [phone] RAD NO: Page 2 Signed Report- US PREG UT [id number] 23:00:00 [facility] 1995 Sex: FPatient Name: DEREK KIM Unit No: [id number] EXAMS: CPT CODE: [id number] US PREG UT TRANSVAGINAL 93628 EXAM: - US PREG EVAL 1ST TRIMTR, - US PREG UT TRANSVAGINAL, - DUP AB/PEL/SC/LTD 04/08/2024 10:57 PM CLINICAL INFORMATION: Vaginal bleeding. TECHNIQUE: Transabdominal and transvaginal horowitz-scale and color Doppler ultrasound of the pelvis was performed. COMPARISON: None FINDINGS: Uterus: 8.2 x 4.7 x 6.2 cm. Thickened endometrium measures 1.7 cm with multiple nonspecific prominent vessels/vasculature within the myometrium. No intrauterine identified. Right ovary: 3.9 x 2.9 x 3 cm. Normal blood flow on Doppler interrogation. Echogenic structure in the right adnexa measures 2.1 x 1.3 x 1.7 cm. Left ovary: 2.3 x 1.6 x 1.5 cm. Normal blood flow on Doppler interrogation. No suspicious mass. Other: No free fluid in the pelvis. IMPRESSION: No intrauterine . Echogenic structure in the right adnexa measuring 2.1 x 1.3 x 1.7 cm may represent an ectopic . Thickened endometrium measures 1.7 cm with multiple nonspecific prominent vessels/vasculature within the maurilio metrium. at 2300 Reported and signed by: Darinel Hall M.D. CC: Flor Rouse MD Technologist: Luma Watkins RDMS Probe: [id number] Trnscrbd D/ (230) [email or web address] Orig Print D/T: S: 04/08/2024 (230) [facility] NAME: DEREK KIM Radiology Department PHYS: [email or web address] - Flor Rouse MD [address] : 1995 AGE: 28 SEX: F [place], [place] [address] LOC: OfeliaERS PHONE #: [phone] EXAM DATE: 04/08/2024 STATUS: REG ER FAX #: [phone] RAD NO: Page 1 Signed Report Patient Name: DEREK KIM Unit No: [id number] EXAMS: CPT CODE: [id number] US PREG UT TRANSVAGINAL 00447 (Continued) [facility] NAME: DEREK KIM Radiology Department PHYS: IMELDA.Tommie - Flor Rouse MD [address] : 1995 AGE: 28 SEX: F [place], [place] [address] LOC: OfeliaERS PHONE #: [phone] EXAM DATE: 04/08/2024 STATUS: REG ER FAX #: [phone] RAD NO: Page 2 Signed Report- US PREG EVAL 1ST [id number] 23:00:00[facility] 1995 Sex: F Patient Name: DEREK KIM Unit No: [id number] EXAMS: CPT CODE: [id number] US PREG EVAL 1ST TRIMTR 79727 EXAM: - US PREG EVAL 1ST TRIMTR, - US PREG UT TRANSVAGINAL, - DUP AB/PEL/SC/LTD 0:57 PM CLINICAL INFORMATION: Vaginal bleeding. TECHNIQUE: Transabdominal and transvaginal horowitz-scale and color Doppler ultrasound of the pelvis was performed. COMPARISON: None FINDINGS: Uterus: 8.2 x 4.7 x 6.2 cm. Thickened endometrium measures 1.7 cm with multiple nonspecific prominent vessels/vasculature within the myometrium. No intrauterine identified. Right ovary: 3.9 x 2.9 x 3 cm. Normal blood flow on Doppler interrogation. Echogenic structure in the right adnexa measures 2.1x 1.3 x 1.7 cm. Left ovary: 2.3 x 1.6 x 1.5 cm. Normal blood flow on Doppler interrogation. No suspicious mass. Other: No free fluid in the pelvis. IMPRESSION: No intrauterine . Echogenic structure in the right adnexa measuring 2.1 x 1.3 x 1.7 cm may represent an ectopic . Thickened endometrium measures 1.7 cm with multiple nonspecific prominent vessels/vasculature within the maurilio metrium. at 2300 Reported and signed by: Darinel Hall M.D. CC: Flor Rouse MD Technologist: Luma Watkins RDMS Probe: Trnscrbd D/ (2300) [email or web address] Orig Print D/T: S: 04/08/2024 (2304) [facility] NAME: DEREK KIM Radiology Department PHYS: - Flor Rouse MD [address] : 1995 AGE: 28 SEX: F [place] [address] [facility] PHONE #: [phone] EXAM DATE: 04/08/2024 STATUS: REG ER FAX #: [phone] RAD NO: Page 1 Signed Report Patient Name: JULIODEREK Unit No: [id number] EXAMS: CPT CODE: [id number] US PREG EVAL 1ST TRIMTR 81458 ( Continued) [facility] NAME: DEREK KIM Radiology Department PHYS: Flor Garces MD [address] : 1995 AGE: 28 SEX: F [place] [address] LOC: F.ERS PHONE #: [phone] EXAM DATE: 04/08/2024 STATUS: RENAY DYKES FAX #: [phone] RAD NO: Page 2 Signed ReportMicroscopic observation [Identifier] in Vaginal fluid by Wet [id number] 16:35:18* Test Item Value Reference Range Interpretation Comme nts Clue Cells (test code = Clue Cells) negative WBCs (test code = WBCs) positive Trichomonads (test code = Trichomonads) negative Epithelial cells (test code = Epithelial cells) normal RBCs (test code = RBCs) negative [facility] macro (dipstick) panel - [id number] 14:37:04* Test Item Value Reference Range Interpretation Comme nts Leukocytes (test code = Leukocytes) Negative Nitrite (test code = Nitrite) negative Urobilinogen (test code = Urobilinogen) .2 Protein (test code = Protein) Negative pH (test code = pH) 6.0 Blood (test code = Blood) Non-Hemolyzed: Trace Specific Atkins (test code = Specific Atkins) 1.025 Ketone (test code = Ketone) Negative Bilirubin (test code = Bilirubin) Negative Glucose (test code = Glucose) Negative Appearance (test code = Appearance) Clear Color (test code = Color) Yellow [facility] W Auto Differential panel - [id number] 14:43:00 * Test Item Value Reference Range [...] NRBC# (test code = NRBC#) 0 K/uL [facility] GroupUrinalysis macro (dipstick) panel - [id number] 14:01:32* Test Item Value Reference Range Interpretation Comme nts Leukocytes (test code = Leukocytes) Small Nitrite (test code = Nitrite) negative Urobilinogen (test code = Urobilinogen) .2 Protein (test code = Protein) 30 pH (test code = pH) 5.0 Blood (test code = Blood) Moderate Specific Atkins (test code = Specific Atkins) 1.025 Ketone (test code = Ketone) Large Bilirubin (test code = Bilirubin) Negative Glucose (test code = Glucose) Negative Appearance (test code = Appearance) Clear Color (test code = Color) Yellow [facility] [id number] 17:06:00* Test Item Value Reference Range Interpretation Comme nts HCG quantitative (test code = HCG quantitative) 8750.0 mIU/mL 0-5 H [facility] macro (dipstick) panel - [id number] 14:17:46* Test Item Value Reference Range Interpretation Comme nts Leukocytes (test code = Leukocytes) Small Nitrite (test code = Nitrite) negative Urobilinogen (test code = Urobilinogen) .2 Protein (test code = Protein) Negative pH (test code = pH) 7.0 Blood (test code = Blood) Non-Hemolyzed: Trace Specific Atkins (test code = Specific Atkins) 1.015 Ketone (test code = Ketone) Negative Bilirubin (test code = Bilirubin) Negative Glucose (test code = Glucose) Negative Appearance (test code = Appearance) Clear Color (test code = Color) Yellow [facility] [id number] 18:09:00* Test Item Value Reference Range Interpretation Comme nts HCG quantitative (test code = HCG quantitative) 1146.0 mIU/mL 0-5 H [facility] kxibdudufwrd5400-66-21 11:06:00* Test Item Value Reference Range Interpretation Comme nts HCG quantitative (test code = HCG quantitative) 466.6 mIU/mL 0-5 H [facility] HospitalChoriogonadotropin.beta subunit [Units/volume] in Serum or Bhrbbz1157-90-63 11:06:00* Test Item Value Reference Range Interpretation Comme nts HCG quantitative (test code = HCG quantitative) 466.6 mIU/mL 0-5 H [facility] Hospitalpregnancy test, hmzbp4811-47-07 09:36:27* Test Item Value Reference Range Interpretation Comme nts Test (test code = Test) positive [facility] Hospital[facility]inalysis macro (dipstick) panel - [id number] 08:33:52* Test Item Value Reference Range Interpretation Comme nts Leukocytes (test code = Leukocytes) Negative Nitrite (test code = Nitrite) negative Urobilinogen (test code = Urobilinogen) .2 Protein (test code = Protein) Negative pH (test code = pH) 6.0 Blood (test code = Blood) Non-Hemolyzed: Trace Specific Atkins (test code = Specific Atkins) 1.025 Ketone (test code = Ketone) Negative Bilirubin (test code = Bilirubin) Negative Glucose (test code = Glucose) Negative Appearance (test code = Appearance) Clear Color (test code = Color) Yellow [facility] [id number] 16:22:00* Test Item Value Reference Range Interpretation Comme nts POCT PREG (test code = 1605) Negative On board controls acceptable with C Line (test code = 3574) Yes POCT PREG LOT # (test code = 3575) POCT PREG TEST DATE ( test code = 357) Lab Interpretation (test cod e = 67807-0) Normal [facility] Urinalysis W Specific [id number] 16:19:00* Test Item Value Reference Range Interpretation [...] Cloudy Lab Interpretation (test cod e = 40925-9) Abnormal [facility] [id number] 19:24:00* Test Item Value Reference Range Interpretation Comme nts POCT PREG (test code = 1605) Negative On board controls acceptable with C Line (test code = 3574) Yes POCT PREG LOT # (test code = 3575) POCT PREG TEST DATE (test code = 3576) CECIL (test code = CECIL) accurate developme nt and interpretation of all internal controls Lab Interpretation (test code = 93796-1) Normal [facility] [id number] 19:24:00* Test Item Value Reference Range Interpretation Comme nts POCT PREG (test code = 1605) Negative On board controls acceptable with C Line (test code = 3574) Yes POCT PREG LOT # (test code = 3575) POCT PREG TEST DATE (test code = 3575) CECIL (test code = CECIL) accurate developme nt and interpretation of all internal controls Lab Interpretation (test code = 61721-1) Normal [facility] Urinalysis W Specific [id number] 19:20:00* Test Item Value Reference Range Interpretation [...] internal controls Lab Interpretation (test code = 28728-1) Normal [facility] Urinalysis W Specific [id number] 19:20:00* Test Item Value Reference Range Interpretation [...] internal controls Lab Interpretation (test code = 86729-0) Normal [facility] ONLY - SYPHILIS IGG/[id number] 15:05:59* Test Item Value Reference Range Interpretation Comme nts Syphilis IgG/IgM (test code = 09252-3) Non-reactive Non-reactive CECIL (test code = CECIL) Non-reactive - No serologic evidence of T. pallidum infection. Cannot exclude incubating or early syphilis. Submit a second specimen in 2-4 weeks if syphilis is clinically suspected. Equivocal - Further testing to follow. Reactive - Further testing to follow. Lab Interpretation (test code = 43053-1) Normal [facility] ONLY - SYPHILIS IGG/[id number] 15:05:59* Test Item Value Reference Range Interpretation Comme nts Syphilis IgG/IgM (test code = 21767-6) Non-reactive Non-reactive CECIL (test code = CECIL) Non-reactive - No serologic evidence of T. pallidum infection. Cannot exclude incubating or early syphilis. Submit a second specimen in 2-4 weeks if syphilis is clinically suspected. Equivocal - Further testing to follow. Reactive - Further testing to follow. Lab Interpretation (test code = 37941-8) Normal [facility] ONLY - SYPHILIS IGG/[id number] 15:05:59* Test Item Value Reference Range Interpretation Comme nts Syphilis IgG/IgM (test code = 77450-3) Non-reactive Non-reactive CECIL (test code = CECIL) Non-reactive - No serologic evidence of T. pallidum infection. Cannot exclude incubating or early syphilis. Submit a second specimen in 2-4 weeks if syphilis is clinically suspected. Equivocal - Further testing to follow. Reactive - Further testing to follow. Lab Interpretation (test code = 06514-5) Normal [facility] 1/2 AG-AB WITH [id number] 06:58:27* Test Item Value Reference Range Interpretation Comme nts HIV Semi-quantitative (test code = 20479-1) 0.12 Negative CECIL (test code = CECIL) Non-reactive for HIV-1 antigen and HIV-1/HIV-2 antibodies. ?No laboratory evidence of HIV infection. ?Repeat in 2-4 weeks if acute HIV infection is suspected. [facility] 1/2 AG-AB WITH [id number] 06:58:27* Test Item Value Reference Range Interpretation Comme nts HIV Semi-quantitative (test code = 93606-0) 0.12 Negative CECIL (test code = CECIL) Non-reactive for HIV-1 antigen and HIV-1/HIV-2 antibodies. ?No laboratory evidence of HIV infection. ?Repeat in 2-4 weeks if acute HIV infection is suspected. [facility] 1/2 AG-AB WITH [id number] 06:58:27* Test Item Value Reference Range Interpretation Comme nts HIV Semi-quantitative (test code = 26445-5) 0.12 Negative CECIL (test code = CECIL) Non-reactive for HIV-1 antigen and HIV-1/HIV-2 antibodies. ?No laboratory evidence of HIV infection. ?Repeat in 2-4 weeks if acute HIV infection is suspected. [facility] [id number] 05:29:42* Test Item Value Reference Range Interpretation Comme nts HCV Ab (test code = 38707-2) Negative HCV Semi-Quantitative (test code = 64118-4) 0.01 [facility] [id number] 05:29:42* Test Item Value Reference Range Interpretation Comme nts HCV Ab (test code = 32182-9) Negative HCV Semi-Quantitative (test code = 63271-5) 0.01 [facility] [id number] 05:29:42* Test Item Value Reference Range Interpretation Comme nts HCV Ab (test code = 66116-9) Negative HCV Semi-Quantitative (test code = 53896-9) 0.01 [facility] AntonioGLYCOSYLATED HEMOGLOBIN (A1C)2023-03-01 05:25:25* Test Item Value Reference Range Interpretation Comme nts HGB A1C (test code = 4548-4) 5.3 % 4.0-5.7 CECIL (test code = CECIL) Reference RangesNormal: <5.7%Prediabetes: 5.7 - 6.4%Diabetes: > 6.5% Lab Interpretation (test code = 71742-5) Normal [facility] Antonio[facility]YCOSYLATED HEMOGLOBIN (A1C)2023-03-01 05:25:25* Test Item Value Reference Range Interpretation Comme nts HGB A1C (test code = 4548-4) 5.3 % 4.0-5.7 CECIL (test code = CECIL) Reference RangesNormal: <5.7%Prediabetes: 5.7 - 6.4%Diabetes: > 6.5% Lab Interpretation (test code = 93474-6) [facility]2023-03-01 05:25:25* Test Item Value Reference Range Interpretation Comme nts HGB A1C (test code = 4548-4) 5.3 % 4.0-5.7 CECIL (test code = CECIL) Reference RangesNormal: <5.7%Prediabetes: 5.7 - 6.4%Diabetes: > 6.5% Lab Interpretation (test code = 75278-7) [facility] [id number] 05:04:15* Test Item Value Reference Range Interpretation [...] 32.5 g/dL 31.6-35.1 RDW-SD (test code = 71389-4) 43.6 fL 39.0-49.9 RDW-CV (test code = 788-0) 12.8 % 12.0-15.5 PLT (test code = 777-3) 326 See_Comment [Automated [employer] ge] The system which generated this result transmitted reference range: 166 - 358 10*3/?L. The reference range was not used to interpret this result as normal/abnormal. MPV (test code = 42949-5) 10.1 fL 9.5-12.9 NRBC/100 WBC (test code = 7099038899) 0.0 See_Comment [Automated [employer] ssage] The system which generated this result transmitted reference range: 0.0 - 10.0 /100 WBCs. The reference range was not used to interpret this result as normal/abnormal. NRBC x10^3 (test code = 7069555750) See_Comment [Automated [employer] ge] The system which generated this result transmitted reference range: 10*3/?L. The reference range was not used to interpret this result as normal/abnormal. GRAN MAT (NEUT) % (test code = 770-8) 59.5 % IMM GRAN % (test code = 3707121602) 0.10 % LYMPH % (test code = 736-9) 31.2 % MONO % (test code = 5905-5) 5.9 % EOS % (test code = 713-8) 2.8 % BASO % (test code = 706-2) 0.5 % GRAN MAT x10^3(ANC) (test code = 5727817168) 5.43 10*3/uL 1.88-7.09 IMM GRAN x10^3 (test code = 2876635602) 0.00-0.06 LYMPH x10^3 (test code = 731-0) 2.85 10*3/uL 1.32-3.29 MONO x10^3 (test code = 742-7) 0.54 10*3/uL 0.33-0.92 EOS x10^3 (test code = 711-2) 0.26 10*3/uL 0.03-0.39 BASO x10^3 (test code = 704-7) 0.05 10*3/uL 0.01-0.07 Lab Interpretation (test code = 05760-5) Abnormal [facility] WITH [id number] 05:04:15* Test Item Value Reference Range Interpretation Comme nts WBC (test code = 6690-2) 9.14 See_Comment [Automated [employer] ge] The system which generated this result [...] 32.5 g/dL 31.6-35.1 RDW-SD (test code = 94323-6) 43.6 fL 39.0-49.9 RDW-CV (test code = 788-0) 12.8 % 12.0-15.5 PLT (test code = 777-3) 326 See_Comment [Automated messa ge] The system which generated this result transmitted reference range: 166 - 358 10*3/?L. The reference range was not used to interpret this result as normal/abnormal. MPV (test code = 94936-6) 10.1 fL 9.5-12.9 NRBC/100 WBC (test code = 7919181431) 0.0 See_Comment [Automated me ssage] The system which generated this result transmitted reference range: 0.0 - 10.0 /100 WBCs. The reference range was not used to interpret this result as normal/abnormal. NRBC x10^3 (test code = 9673230462) See_Comment [Automated messa ge] The system which generated this result transmitted reference range: 10*3/?L. The reference range was not used to interpret this result as normal/abnormal. GRAN MAT (NEUT) % (test code = 770-8) 59.5 % IMM GRAN % (test code = 7058259322) 0.10 % LYMPH % (test code = 736-9) 31.2 % MONO % (test code = 5905-5) 5.9 % EOS % (test code = 713-8) 2.8 % BASO % (test code = 706-2) 0.5 % GRAN MAT x10^3(ANC) (test code = 4007564785) 5.43 10*3/uL 1.88-7.09 IMM GRAN x10^3 (test code = 2001879720) 0.00-0.06 LYMPH x10^3 (test code = 731-0) 2.85 10*3/uL 1.32-3.29 MONO x10^3 (test code = 742-7) 0.54 10*3/uL 0.33-0.92 EOS x10^3 (test code = 711-2) 0.26 10*3/uL 0.03-0.39 BASO x10^3 (test code = 704-7) 0.05 10*3/uL 0.01-0.07 Lab Interpretation (test code = 49226-6) Abnormal [facility] WITH [id number] 05:04:15* Test Item Value Reference Range Interpretation [...] 32.5 g/dL 31.6-35.1 RDW-SD (test code = 43986-5) 43.6 fL 39.0-49.9 RDW-CV (test code = 788-0) 12.8 % 12.0-15.5 PLT (test code = 777-3) 326 See_Comment [Automated messa ge] The system which generated this result transmitted reference range: 166 - 358 10*3/?L. The reference range was not used to interpret this result as normal/abnormal. MPV (test code = 01868-5) 10.1 fL 9.5-12.9 NRBC/100 WBC (test code = 3450545973) 0.0 See_Comment [Automated [employer] ssage] The system which generated this result transmitted reference range: 0.0 - 10.0 /100 WBCs. The reference range was not used to interpret this result as normal/abnormal. NRBC x10^3 (test code = 1240071528) See_Comment [Automated messa ge] The system which generated this result transmitted reference range: 10*3/?L. The reference range was not used to interpret this result as normal/abnormal. GRAN MAT (NEUT) % (test code = 770-8) 59.5 % IMM GRAN % (test code = 5644790861) 0.10 % LYMPH % (test code = 736-9) 31.2 % MONO % (test code = 5905-5) 5.9 % EOS % (test code = 713-8) 2.8 % BASO % (test code = 706-2) 0.5 % GRAN MAT x10^3(ANC) (test code = 0740624689) 5.43 10*3/uL 1.88-7.09 IMM GRAN x10^3 (test code = 3989155260) 0.00-0.06 LYMPH x10^3 (test code = 731-0) 2.85 10*3/uL 1.32-3.29 MONO x10^3 (test code = 742-7) 0.54 10*3/uL 0.33-0.92 EOS x10^3 (test code = 711-2) 0.26 10*3/uL 0.03-0.39 BASO x10^3 (test code = 704-7) 0.05 10*3/uL 0.01-0.07 Lab Interpretation (test code = 96135-3) [facility] antico[facility], [id number] 14:10:00 * Test Item Value Reference Range [...] used to interpret this result as normal/abnormal. [facility] IgG and IgM panel - [id number] 19:14:00* Test Item Value Reference Range Interpretation Comme nts beta 2 glyco,IgG (test code = beta 2 glyco,IgG) <9 0-20 beta 2 glyco,IgA (test code = beta 2 glyco,IgA) <9 0-25 beta 2 glycoprot,IgM (test c ode = beta 2 glycoprot,IgM) <9 0-32 [facility] IgM panel - [id number] 19:14:00 * Test Item Value Reference Range Interpretation Comme nts anticardiolipin Ab IgG (test code = anticardiolipin Ab IgG) <9 0-14 anticardiolipin Ab IgM (test code = anticardiolipin Ab IgM) <9 0-12 [facility]rfx HPV if ASCUS+leukorrhea panel [...] (test code = vance - swab) normal [facility] Hospital[facility]inal[facility] macro (dipstick) panel - [id number] 09:40:09* Test Item Value Reference Range Interpretation Comme nts Leukocytes (test code = Leukocytes) Trace Nitrite (test code = Nitrite) negative Urobilinogen (test code = Urobilinogen) .2 Protein (test code = Protein) Negative pH (test code = pH) 5.5 Blood (test code = Blood) Negative Specific Atkins (test code = Specific Atkins) 1.030 Ketone (test code = Ketone) Negative Bilirubin (test code = Bilirubin) Small Glucose (test code = Glucose) Negative Appearance (test code = Appearance) Cloudy Color (test code = Color) Yellow [facility] - cancer history assessment [id number] 08:33:00 * Test Item Value Reference Range Interpretation Comme nts [facility] [place] (test code [place] [facility] [place]) does not meet criteria [facility] + TV, DNA, urine/[id number] 00:00:00* Test Item Value Reference Range Interpretation Comme nts vance - swab (test code = vance - swab) normal gardnerella (test code = gardnerella) abnormal A CT/NG (test code = CT/NG) normal trichomonas vaginalis addon - swab (test code = trichomonas vaginalis addon - swab) normal [facility] macro (dipstick) panel - [id number] 14:03:06* Test Item Value Reference Range Interpretation Comme nts Leukocytes (test code = Leukocytes) Negative Nitrite (test code = Nitrite) negative Urobilinogen (test code = Urobilinogen) .2 Protein (test code = Protein) Negative pH (test code = pH) 6.0 Blood (test code = Blood) Negative Specific Atkins (test code = Specific Atkins) 1.030 Ketone (test code = Ketone) Negative Bilirubin (test code = Bilirubin) Negative Glucose (test code = Glucose) Negative Appearance (test code = Appearance) Clear Color (test code = Color) Yellow [facility] [id number] 20:02:00* Test Item Value Reference Range Interpretation Comme nts POCT PREG (test code = 1605) Negative On board controls acceptable with C Line (test code = 3574) Yes POCT PREG LOT # (test code = 3575) POCT PREG TEST DATE ( test code = 3576) [facility]
--- NOTE | 2024-11-28 21:55 | RAD REPORT ---
EXAMINATION: US FIRST TRIMESTER TRANSVAGINAL WITH DOPPLER CLINICAL INDICATION: with vaginal bleeding TECHNIQUE: Real-time obstetrical ultrasonography of the maternal pelvis and first trimester was performed transvaginally. Color and spectral Doppler evaluation of the ovaries was performed. COMPARISON: No prior exam. FINDINGS: The uterus measures 8 x 4 x 6 cm. A sac is present within the endometrium measuring 7 mm. A yolk sac is present. 2 mm echogenic structu re is equivocal for a pole. Cardiac activity not seen. Right ovary normal in size and echotexture 2.4 cm right ovarian cyst. Blood flow to the right ovary i s present. Left ovary normal in size and echotexture Right and left adnexa unremarkable No significant free fluid IMPRESSION: Small sac within the endometrium probably a gestational sac. Estimated gestational age would be 5 wee ks 3 days THOMAS 07/28/2025 This should be correlated clinically. It is recommended that patient have a follow-up endovaginal son ogram in one week with serial beta-hCG levels.
[2024-11-28 22:47] LABS: Absolute Basophils 0.1 K/uL (0-0.5); Absolute Eosinophils 0.2 K/uL (0-0.5); Absolute Monocytes 0.8 K/uL (0.1-1.3); Absolute Neutrophil 7.3 K/uL (1.8-8.0); Basophils % 0.6 % (0-1.3); Eosinophils % 1.6 % (0-4.4); Hematocrit 37.2 % (36.0-45.0); Hemoglobin 12.8 g/dL (12.0-15.0); Lymphocytes % 26.5 % (15.3-44.8); MCH 30.8 pg (27.0-35.0); MCHC 34.5 g/dL (32.0-36.0); MCV 89.1 fL (80-100); MPV 8.1 fL (7.6-11.3); Neutrophils % 64.3 % (41.7-73.7); Nucleated Red Blood Cells % 0.1 % (0-0); Platelets 317 thou/uL (152-406); RBC Red Blood Cell Count 4.17 M/uL (3.86-4.86); Red Cell Distribution Width 13.9 % (12.1-15.2)
[2024-11-28 22:50] LABS: Specific Gravity 1.007 (1.005-1.030); Urine Bacteria <20 /HPF (<20); Urine Bilirubin NEGATIVE (Negative); Urine Blood Negative (Negative); Urine Clarity Extremely Turbid (Clear); Urine Color Colorless (Yellow); Urine Culture Reflex Order NOT NEEDED; Urine Glucose NEGATIVE (Negative); Urine Ketones NEGATIVE (Negative); Urine Microscopic Reflex YN ORDER UMIC; Urine Nitrite NEGATIVE (Negative); Urine Protein NEGATIVE (Negative); Urine RBC <5 /HPF (None Seen); Urine Urobilinogen Normal (Normal); Urine WBC <5 /HPF (<5); Urine WBC Clump Rare /HPF (None Seen); Urine Yeast (Budding) Trace /HPF (None Seen); Urine pH 7.5 (5.0-7.0)
[2024-11-28 23:20] LABS: Anion Gap 7.6 mEq/L (5.0-15.0); Potassium 3.6 mEq/L (3.5-5.1)
--- NOTE | 2024-11-28 23:31 | ER ---
Nurse's Notes [facility] Name: Beena Garcia Age: 29 yrs Sex: Female : 1995 Arrival Date: 11/28/2024 Time: 20:36 Bed 11 Private MD: Diagnosis: Threatened Presentation: 11/28 21:01 Chief complaint: Patient states: RLQ abdominal pain onset today. Pt states that she is cm10 approximately 5-6 weeks . pt states that she had an ectopic her last . Pt also reports vaginal bleeding that is brown spotting. Coronavirus screen: Client denies travel out of the [place] in the last 14 days. Ebola Screen: Patient denies travel to an Ebola-affected area in the 21 days before illness onset. Initial Sepsis Screen: Does the patient meet any 2 criteria? No. Patient's initial sepsis screen is negative. Does the patient have a suspected source of infection? No. Patient's initial sepsis screen is negative. Risk Assessment: Do you want to hurt yourself or someone else? Patient reports no desire to harm self or others. Onset of symptoms was November 28, 2024. 21:01 Method Of Arrival: Ambulatory cm10 21:01 Acuity: LETTY 3 cm10 Triage Assessment: 21:06 General: Appears in no apparent distress. uncomfortable, Behavior is calm, cooperative. cm10 Neuro: No deficits noted. Level of Consciousness is awake, alert, obeys commands, Oriented to person, place, time, situation, Appropriate for age. Respiratory: No deficits noted. Airway is patent Respiratory effort is even, unlabored, Respiratory pattern is regular, symmetrical. ART THERAPY SPECIALIST: 21:05 8, Full Term 0, Premature 0, 7, Living 0, LMP 10/14/2024, cm10 unknown Historical: - Allergies: 21:05 Codeine (Hives); cm10 - PMHx: 21:05 UTI; miscarriage; cm10 - PSHx: 21:05 L fallopian tube removed; cm10 - Immunization history:: Adult Immunizations up to date. - Infectious Disease History:: Denies. - Social history:: Smoking status: Patient denies any tobacco usage or history of. - Family history:: not pertinent. Screenin:15 [facility] ED Fall Risk Assessment (Adult) History of falling in the last 3 months, me1 including since admission No falls in past 3 months (0 pts) Confusion or Disorientation No (0 pts) Intoxicated or Sedated No (0 pts) Impaired Gait No (0 pts) Mobility Assist Device Used No (0 pt) Altered Elimination No (0 pt) Score/Fall Risk Level 0 - 2 = Low Risk Maintained a safe environment, Provided non-skid footwear, Hourly rounding (assess needs \T\ fall precautionary measures) done. Abuse screen: Denies threats or abuse. Nutritional screening: No deficits noted. Tuberculosis screening: No symptoms or risk factors identified. Assessment: 23:15 General: Appears in no apparent distress. well groomed, well developed, well nourished, me1 Behavior is calm, cooperative, appropriate for age, Reports RLQ abdominal pain onset today. Pt states that she is approximately 5-6 weeks . pt states that she had an ectopic her last . Pt also reports vaginal bleeding that is brown spotting. Pain: Complains of pain in right lower quadrant Pain does not radiate. Pain currently is 5 out of 10 on a pain scale. Quality of pain is described as crampy, Pain began gradually, Is continuous. Neuro: Level of Consciousness is awake, alert, obeys commands, Oriented to person, place, time, situation, Appropriate for age. Cardiovascular: Patient's skin is warm and dry. Respiratory: Airway is patent Respiratory effort is even, unlabored, Respiratory pattern is regular, symmetrical. GI: No signs and/or symptoms were reported involving the gastrointestinal system. : Reports vaginal bleeding that is brown, spotty. :. : Reports vaginal bleeding that is since today. EENT: No signs and/or symptoms were reported regarding the EENT system. Derm: No signs and/or symptoms reported regarding the dermatologic system. Skin is intact, is healthy with good turgor, Skin is pink, warm \T\ dry. Musculoskeletal: No signs and/or symptoms reported regarding the musculoskeletal system. 23:15 : Denies burning with urination, urinary frequency. me1 Vital Signs: 21:01 BP 125 / 80; Pulse 85; Resp 15; Temp 98.8; Pulse Ox 100% on R/A; Weight 72.57 kg; cm10 Height 5 ft. 1 in. ; Pain 6/10; 23:36 BP 118 / 76; Pulse 87; Resp 16; Temp 98.4; Pulse Ox 100% ; me1 21:01 Body Mass Index 30.23 (72.57 kg, 154.94 cm) cm10 21:01 Pain Scale: Adult cm10 ED Course: 20:43 Patient arrived in ED. gm2 20:44 Juan Da Silva MD is Attending Physician. rt 21:05 Triage completed. cm10 21:06 Arm band placed on right wrist. Patient placed in waiting room. cm10 21:43 US Transvaginal Ob In Process Unspecified. EDMS 22:27 Abo/rh Typing Sent. cm10 22:27 Basic Metabolic Panel Sent. cm10 22:27 CBC with Diff Sent. cm10 22:27 Quantitative Hcg Sent. cm10 22:28 Urinalysis w/ reflexes Sent. cm10 22:28 Initial lab(s) drawn, by me, sent to lab. Urine collected: clean catch specimen. cm10 Inserted saline lock: 20 gauge in right antecubital area, using aseptic technique. Blood collected. Flushed with 10 mL NS. 23:15 Patient has correct armband on for positive identification. Bed in low position. Call me1 light in reach. Side rails up X 1. Provided Education on: POC. Verbalized understanding.. 23:15 No provider procedures requiring assistance completed. me1 23:26 Lori Greenwood, RN is Primary Nurse. me1 23:37 IV discontinued, intact, bleeding controlled, No redness/swelling at site. Pressure me1 dressing applied. Administered Medications: No medications were administered Medication: 23:15 VIS not applicable for this client. me1 Outcome: 23:30 Discharge ordered by . rt 23:37 Discharged to home ambulatory, me1 23:37 Condition: stable 23:37 Discharge instructions given to patient, Instructed on discharge instructions, follow up and referral plans. Demonstrated understanding of instructions, follow-up care, 23:37 Patient left the ED. me1 Signatures: Dispatcher [employer] [facility] Juan Da Silva MD MD rt Zainab Goodrich RN RN 10 Lori Greenwood, MISHA RN me1 Gracie Pozo gm2 Corrections: (The following items were deleted from the chart) 23:27 21:01 Chief complaint: Patient states: RLQ abdominal pain onset today. Pt states that me1 she is approximately 5-6 weeks . pt states that she had an ectopic her last . Pt also reports vaginal bleeding that is brown spotting cm10
--- NOTE | 2024-11-28 23:31 | EDPHYS ---
Physician Documentation [facility] Name: Beena Garcia Age: 29 yrs Sex: Female : 1995 Arrival Date: 11/28/2024 Time: 20:36 Bed 11 Private MD: ED Physician Juan Da Silva HPI: 11/29 00:22 This 29 yrs old Female presents to ER via Ambulatory with complaints of rt Vaginal Bleeding, Abdominal Cramping. 00:22 Patient is a G8, P0 currently at 5 weeks per her report who presents to the ED rt with a small amount of vaginal bleeding less than a period starting today. States that is since stopped. Reports a cramping to the right lower quadrant. Denies other acute complaints at this time, symptoms are moderate in severity, no other aggravating or alleviating factors.. 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 - Infectious Disease History:: Denies. - Social history:: Smoking status: Patient denies any tobacco usage or history of. - Family history:: not pertinent. ROS: 11/29 00:22 Positive for vaginal bleeding, Negative for urinary symptoms, rt Constitutional: Negative for fever, chills, and weight loss, Cardiovascular: Negative for chest pain, palpitations, and edema, Respiratory: Negative for shortness of breath, cough, wheezing, and pleuritic chest pain, Abdomen/GI: Negative for abdominal pain, nausea, vomiting, diarrhea, and constipation, Skin: Negative for injury, rash, and discoloration, Neuro: Negative for headache, weakness, numbness, tingling, and seizure, Exam: 00:22 Constitutional: This is a well developed, well nourished patient who is awake, alert, rt and in no acute distress. Head/Face: Normocephalic, atraumatic. Chest/axilla: Normal chest wall appearance and motion. Nontender with no deformity. No lesions are appreciated. Cardiovascular: Regular rate and rhythm with a normal S1 and S2. No gallops, murmurs, or rubs. Normal PMI, no JVD. No pulse deficits. Respiratory: Lungs have equal breath sounds bilaterally, clear to auscultation and percussion. No rales, rhonchi or wheezes noted. No increased work of breathing, no retractions or nasal flaring. Abdomen/GI: Soft, non-tender, with normal bowel sounds. No distension or tympany. No guarding or rebound. No evidence of tenderness throughout. Skin: Warm, dry with normal turgor. Normal color with no rashes, no lesions, and no evidence of cellulitis. MS/ Extremity: Pulses equal, no cyanosis. Neurovascular intact. Full, normal range of motion. Vital Signs: 11/28 21:01 BP 125 / 80; Pulse 85; Resp 15; Temp 98.8; Pulse Ox 100% on R/A; Weight 72.57 kg; cm10 Height 5 ft. 1 in. ; Pain 6/10; 23:36 BP 118 / 76; Pulse 87; Resp 16; Temp 98.4; Pulse Ox 100% ; me1 21:01 Body Mass Index 30.23 (72.57 kg, 154.94 cm) cm10 21:01 Pain Scale: Adult cm10 MDM: 21:01 Medical Screening Exam initiated rt 11/29 00:22 Differential diagnosis: Ectopic , threatened AB, inevitable AB. Data reviewed: rt vital signs, nurses notes, lab test result(s), radiologic studies. Test considered but Not performed: CT: Presentation not consistent with an acute appendicitis, CT scan is not indicated. Counseling: I had a detailed discussion with the patient and/or guardian regarding the historical points, exam findings, and any diagnostic results supporting the discharge/admit diagnosis, lab results, radiology results, the need for outpatient follow up, Patient informed of recommendations for repeat hCG, ultrasound in about 1 week's time.. 11/28 21:06 Order name: Abo/rh Typing; Complete Time: 23:23 rt 11/28 21:06 Order name: Basic Metabolic Panel; Complete Time: 23:23 rt 11/28 21:06 Order name: CBC with Diff; Complete Time: 23:23 rt 02 21:06 Order name: Quantitative Hcg; Complete Time: 23:23 rt 02 21:06 Order name: Urinalysis w/ reflexes; Complete Time: 23:23 rt 02 21:06 Order name: US Transvaginal Ob; Complete Time: 22:09 rt 02 21:06 Order name: IV Saline Lock; Complete Time: 22:27 rt 02 21:06 Order name: Labs collected and sent; Complete Time: 22:27 rt 02 21:06 Order name: NPO; Complete Time: 23:26 rt Administered Medications: No medications were administered Disposition Summary: 11/28/24 23:30 Discharge Ordered Notes: Location: Home rt Problem: new rt Symptoms: are unchanged rt Condition: Stable rt Diagnosis - Threatened rt Followup: rt - With: Private Physician - When: 7 - 10 days - Reason: Discharge Instructions: - Discharge Summary Sheet rt - Threatened Miscarriage rt Forms: - Medication Reconciliation Form rt - Antibiotic Education rt - Prescription Opioid Use rt - Patient Portal Instructions rt - Leadership Thank You Letter rt Signatures: Dispatcher [employer] EDJuan Akins MD MD rt Zainab Goodrich RN RN cm10 Corrections: (The following items were deleted from the chart) 11/28 21:06 21:06 ABO/RH TYPING+BB.LAB.BRZ ordered. EDMS EDMS 21:06 21:06 BASIC METABOLIC PANEL+C.LAB.BRZ ordered. EDMS EDMS 21:06 21:06 CBC+H.LAB.BRZ ordered. EDMS EDMS 21:06 21:06 QUANTITATIVE HCG+C.LAB.BRZ ordered. EDMS EDMS 21:06 21:06 Urinalysis+U.LAB.BRZ ordered. EDMS EDMS
[2024-11-28 23:59] VITALS: O2SAT 100
[2024-11-29 00:17] VITALS: BP 118/76; TEMP 98.4
== END 2024-11-28 23:37 | disposition home or self-care (01) ==
LOC: ER 20:36
DX: O20.0 Threatened abortion (principal); Z3A.01 Less than 8 weeks gestation of pregnancy
CPT/HCPCS: 36415; 76817; 80048; 81001; 84702; 85025; 86900; 86901; 99284

== ENCOUNTER 2024-12-03 20:16 | Emergency (ER) | payer OTHER ==
--- OUTSIDE RECORDS SUMMARY | 2024-12-03 20:21 | XMS REPORT | Continuity of Care Document ---
Author Name Unknown Address [address] [facility] [place] [id number] [facility] Address [address] [facility] [address] [place] [address] Care Team Providers Care Media/Instructional Designer Name Role Phone STEPHANIE HICKS Primary Care Physician Unav ENA De La Rosa Attending Clinician Unavaila STEPHANIE Satrr Attending Clinician Unavail able Shelby Villa Attending Clinician [phone] SHELBY MERCER Attending Clinician Unavailable Stephanie Parisi Attending Clinician + Ena Dalton CNM Attending Clinician [phone] Stephanie Parisi Attending Clinician + Flor Rouse Attending Clinician Unavailable ELISE HERNANDEZ Attending Clinician Unavailyarelis Blunt Attending Clinician Unavailable ERICH TAYLOR Attending Clinician Unavailable UNKNOWN, ATTENDING Attending Clinician Unavailab RADHA Dave Attending Clinician Unavailable Radha James PA-C Attending Clinician [phone] Unknown, Attending Attending Clinician Unavailab le Doctor Unassigned, Kula Attending Clinician U IVY Pabon Attending Clinician UnavailVELIA Mcduffie Attending Clinician Unavailable RICHARD AMAYA Attending Clinician Unavailab KARLA Damian Attending Clinician Frances ramsay Lab, Ang-Rmchp Attending Clinician Unavailable Ida Marroquin Attending Clinician [phone] Richard Machuca Attending Clinician Pardeep Najera DO Attending Clinician IDA VARELA Attending Clinician Lyndon Martell Admitting Clinician Toñito Rahman_Yessi Admitting Clinician Unavailable Payers Payer Name Policy Type Policy Number Effective Date Expirati on Date Source [facility] [id number] 2023 00:00:00 [place] [facility] [id number] 2022 00:00:00 [place] - [place] [facility] (MEDICAID HMO) [id number] 2016 00:00:00 MEDICAID PENDING PENDING 2021 00:00:00 HTW-RMCHP [id number] 2017 00:00:00 Problems Condition Name Condition Details Condition Category Status Onset Date Resolution Date Last Treatment Date Treating Clinician Comments Source Encounter for other contracept rishi management Encounter for other contracept rishi management Disease Active 05-13 00:00: 00 [facility] Over weight Over weight Disease Active 05-13 00:00: 00 [facility] of left fallopian tube of Left Fallopian Tube Problem Active 4-12 00:00: 00 [facility] High risk due to recurrent loss High Risk Due to Recurrent Loss Problem Active 4-03 00:00: 00 [facility] History of abnormal cervical Pap smear History of abnormal cervical Pap smear Disease Active 5-13 00:00: 00 Overview: Formattin g of this note might be different from the original. 2016 Negative PAP [id number] Negative PAP +[id number] Negative PAP +HPV, negative [id number] Negative PAP and [id number] Negative PAP and [id number] pending [facility] Other general counseling and advice for contracept rishi management Other general counseling and advice for contracept rishi management Disease Resolve d 2021- 6-10 00:00: 00 2024-05-13 00:00:00 2024-05-13 13:17:52 [facility] Over weight Over weight Disease Resolve d 2016-10 2- 00:00: 00 2024-05-13 00:00:00 2024-05-13 13:17:50 [facility] Cyst of right ovary Cyst of right ovary Disease Resolve d 04-13 00:00: 00 2023-03-03 00:00:00 2023-03-03 12:56:01 [facility] Susceptibl e to varicella (non-immun e), currently Susceptibl e to varicella (non-immun e), currently Disease Resolve d 6- 00:00: 00 2022-03-31 00:00:00 2022-03-31 16:16:07 [facility] Rubella non-immune status, antepartum Rubella non-immune status, antepartum Disease Resolve d 6- 00:00: 00 2022-03-31 00:00:00 2022-03-31 16:16:09 [facility] Supervisio n of high-risk Supervisio n of high-risk Disease Resolve d 6- 00:00: 00 2022-03-31 00:00:00 2022-03-31 16:16:10 [facility] History of miscarriag e History of miscarriag e Disease Resolve d 6- 00:00: 00 2022-03-31 00:00:00 2022-03-31 16:16:11 [facility] Vaginal bleeding in Vaginal bleeding in Disease Resolve d 6-01 00:00: 00 2022-03-31 00:00:00 2022-03-31 16:16:05 [facility] Dysuria Dysuria Disease Resolve d 5-05 00:00: 00 2021-03-22 00:00:00 2021-03-22 16:30:58 [facility] Maternal varicella, non-immune Maternal varicella, non-immune Disease Resolve d 0 3-23 00:00: 00 2021-03-22 00:00:00 2021-03-22 16:31:00 [facility] Screening examinatio n for STD (sexually transmitte d disease) Screening examinatio n for STD (sexually transmitte d disease) Disease Resolve d 3-16 00:00: 00 2021-03-22 00:00:00 2021-03-22 16:31:03 [facility] UTI symptoms UTI symptoms Disease Resolve d 316 00:00: 00 2021-03-22 00:00:00 2021-03-22 16:31:05 [facility] Contracept rishi management Contracept rishi management Disease Resolve d 2016-10 00:00: 00 2021-03-22 00:00:00 2021-03-22 16:30:57 [facility] Miscarriag e Miscarriag e Disease Resolve d 11-10 00:00: 00 2017-09-21 00:00:00 2017-09-21 14:05:51 [facility] Other general counseling and advice for contracept rishi management Other general counseling and advice for contracept rishi management Disease Resolve d 11-10 00:00: 00 2017-09-21 00:00:00 2017-09-21 14:05:51 [facility] Missed Missed Disease Resolve d 2015-10 00:00: 00 2017-09-21 00:00:00 2017-09-21 14:05:50 [facility] Rubella non-immune status, antepartum Rubella non-immune status, antepartum Disease Resolve d 2015-10 00:00: 00 2017-09-21 00:00:00 2017-09-21 14:05:49 [facility] Supervisio n of high risk , antepartum Supervisio n of high risk , antepartum Disease Resolve d 2015-10 00:00: 00 2017-09-21 00:00:00 2017-09-21 14:05:47 [facility] Flu vaccine need Flu vaccine need Disease Resolve d 2015-10 00:00: 00 2017-09-21 00:00:00 2022-05-07 00:43:11 [facility] Surveillan ce of previously prescribed contracept rishi pill Surveillan ce of previously prescribed contracept rishi pill Disease Resolve d 03-30 00:00: 00 2016-09-06 00:00:00 2016-09-06 11:18:49 [facility] Allergies, Adverse Reactions, Alerts Allergy Name Allergy Type Status Severity Reaction(s) Onset Date Inactive Date Treating Clinician Comments Source codeine DA Active SV HIVES 04-08 00:00: 00 [facility] Codeine Propensi ty to adverse reaction s Active Hives 02-27 00:00: 00 [facility] CODEINE DRUG INGREDI Active [facility] 02-27 00:00: 00 [facility] Codeine Allergy to substanc e Active [facility] Social History Social Habit Start Date Stop Date Quantity Comments Source ASSERTION [facility] beverage intake 2024-11-19 00:00:00 2024-11-19 00:00:00 Current drinker of alcohol (finding) [facility] History of Social function 2024-05-13 00:00:00 2024-05-13 00:00:00 [facility] Alcohol intake 2023-11-13 00:00:00 2023-11-13 00:00:00 Current drinker of alcohol (finding) [facility] Exposure to SARS-CoV-2 (event) 2023-02-18 00:00:00 2023-02-28 06:11:00 Not sure [facility] Alcohol Comment 2023-02-28 00:00:00 2023-02-28 00:00:00 social [facility] Tobacco use and exposure 2022-06-21 00:00:00 2022-06-21 00:00:00 Smokeless tobacco non-user [facility] Sex assigned at 1995 00:00:00 1995 00:00:00 [facility] Smoking Status Start Date Stop Date Source Never smoked tobacco [facility] Medications Ordered Medication Name Filled Medication Name Start Date Stop Date Current Medication? Ordering Clinician Indication Dosage Frequency Signature (SIG) Comments Components Source metroNIDAZO LE 500 mg tablet 11-19 00:00: 00 Yes [id number] 500mg Take 1 tablet by mouth every 12 (twelve) hours. [facility] fluconazole 150 mg tablet 11-18 00:00: 00 Yes [id number] 150mg Take 1 tablet by mouth every 3 (three) days. [facility] norgestimat e-ethinyl estradioL (ORTHO TRI-CYCLEN, ,) 0.18/0.215/ 0.25 mg-35 mcg (28) tablet 2023-10 00:00: 00 Yes [id number] 1{tbl} Take 1 tablet by mouth in the morning. [facility] Nitrofurant oin&Nit. Macrocryst (MACROBID) 100 mg capsule 05-16 00:00: 00 05-27 04:59 :00 No [id number] 100mg Take 1 capsule by mouth in the morning and 1 capsule in the evening. Do all this for 10 days. [facility] metroNIDAZO LE 500 mg tablet 05-15 00:00: 00 05-23 04:59 :00 No [id number] 500mg Take 1 tablet by mouth in the morning and 1 tablet in the evening. Do all this for 7 days. [facility] fluconazole (DIFLUCAN) 150 mg tablet 05-15 00:00: 00 05-16 04:59 :00 No [id number] 150mg Take 1 tablet by mouth once now for 1 dose. [facility] phentermine HCl (PHENTERMIN E ORAL) 05-13 12:58: 39 Yes Take by mouth. [facility] norgestimat e-ethinyl estradioL (ORTHO TRI-CYCLEN, ,) 0.18/0.215/ 0.25 mg-35 mcg (28) tablet 05-13 00:00: 00 09-15 00:00 :00 No [id number] 1{tbl} Take 1 tablet by mouth in the morning. [facility] cefdinir 300 mg capsule 3-22 00:00: 00 05-13 00:00 :00 No [id number] 300mg Take 1 capsule by mouth every 12 (twelve) hours. [facility] fluconazole (DIFLUCAN) 150 mg tablet 1-04 00:00: 00 05-13 00:00 :00 No [id number] 150mg Take 1 tablet by mouth every 72 (seventy-t wo) hours. [facility] Nitrofurant oin&Nit. Macrocryst (MACROBID) 100 mg capsule 1-03 00:00: 00 05-13 00:00 :00 No [id number] 100mg Take 1 capsule by mouth in the morning and 1 capsule in the evening. [facility] fluconazole (DIFLUCAN) 150 mg tablet 03-02 00:00: 00 03-03 04:59 :00 No [id number] 150mg Take 1 tablet by mouth once now for 1 dose. Take second tablet in 1 week [facility] phentermine HCl (PHENTERMIN E ORAL) 02-28 08:20: 44 Yes Take by mouth. [facility] norgestimat e-ethinyl estradioL (ORTHO TRI-CYCLEN, 28,) 0.18/0.215/ 0.25 mg-35 mcg (28) tablet 9-16 00:00: 00 02-28 00:00 :00 No [id number] 1{tbl} Take 1 tablet by mouth in the morning. [facility] Nitrofurant oin&Nit. Macrocryst (MACROBID) 100 mg capsule 04-03 00:00: 00 02-28 00:00 :00 No [id number] 100mg Take 1 capsule by mouth 2 (two) times daily. [facility] PNV 67-iron ps-folate no.1-dha (VITAFOL ULTRA) 29 mg iron- 1 mg-200 mg Cap 03-22 00:00: 00 10-28 00:00 :00 No [id number] 1{each} Take 1 Each by mouth daily. [facility] norgestimat e-ethinyl estradioL 0.18/0.215/ 0.25 mg-25 mcg tablet 02-23 00:00: 00 10-28 00:00 :00 No [id number] 1{tbl} Take 1 tablet by mouth daily. [facility] ibuprofen 800 mg tablet Take 1 tablet every 6 hours by oral route as needed. ibuprofen 800 mg tablet Take 1 tablet every 6 hours by oral route as needed. No 1 Q6H ibuprofen 800 mg tablet Take 1 tablet every 6 hours by oral route as needed. [facility] Diflucan 100 mg tablet Take 1 tablet every day by oral route for 3 days. Diflucan 100 mg tablet Take 1 tablet every day by oral route for 3 days. No 1 Q1D Diflucan 100 mg tablet Take 1 tablet every day by oral route for 3 days. [facility] Immunizations Ordered Immunization Name Filled Immunization Name Date Status Comments Source HPV9 2019-09-10 00:00:00 Completed [facility] HPV9 2019-09-10 00:00:00 Completed [facility] HPV9 2019-09-10 00:00:00 Completed [facility] HPV9 2019-09-10 00:00:00 Completed [facility] HPV9 2019-09-10 00:00:00 Completed [facility] HPV9 2019-09-10 00:00:00 Completed [facility] HPV9 2019-09-10 00:00:00 Completed [facility] HPV9 2019-06-17 00:00:00 Completed [facility] HPV9 2019-06-17 00:00:00 Completed [facility] HPV9 2019-06-17 00:00:00 Completed [facility] HPV9 2019-06-17 00:00:00 Completed [facility] HPV9 2019-06-17 00:00:00 Completed [facility] HPV9 2019-06-17 00:00:00 Completed [facility] HPV9 2019-06-17 00:00:00 Completed [facility] Influenza Virus Vaccine Quad IM 3+ YRS 2016-09-06 00:00:00 Completed Influenza Virus Vaccine Quad IM 3+ YRS 2016-09-06 00:00:00 Completed [facility] Influenza Virus Vaccine Quad IM 3+ YRS 2016-09-06 00:00:00 Completed [facility] Influenza Virus Vaccine Quad IM 3+ YRS 2016-09-06 00:00:00 Completed [facility] Influenza Virus Vaccine Quad IM 3+ YRS 2016-09-06 00:00:00 Completed [facility] Influenza Virus Vaccine Quad IM 3+ YRS 2016-09-06 00:00:00 Completed [facility] Influenza Virus Vaccine Quad IM 3+ YRS 2016-09-06 00:00:00 Completed [facility] TDAP 2009-10-22 00:00:00 Completed [facility] TDAP 2009-10-22 00:00:00 Completed [facility] TDAP 2009-10-22 00:00:00 Completed [facility] TDAP 2009-10-22 00:00:00 Completed [facility] TDAP 2009-10-22 00:00:00 Completed [facility] TDAP 2009-10-22 00:00:00 Completed [facility] TDAP 2009-10-22 00:00:00 Completed [facility] HPV9 Unknown Completed [facility] TDAP Unknown Completed [facility] Influenza Virus Vaccine Quad IM 3+ YRS Unknown Completed [facility] HPV9 Unknown Completed [facility] TDAP Unknown Completed [facility] Influenza Virus Vaccine Quad IM 3+ YRS Unknown Completed [facility] HPV9 Unknown Completed [facility] TDAP Unknown Completed [facility] Influenza Virus Vaccine Quad IM 3+ YRS Unknown Completed [facility] HPV9 Unknown Completed [facility] TDAP Unknown Completed [facility] Influenza Virus Vaccine Quad IM 3+ YRS Unknown Completed [facility] HPV9 Unknown Completed [facility] TDAP Unknown Completed [facility] Influenza Virus Vaccine Quad IM 3+ YRS Unknown Completed [facility] HPV9 Unknown Completed [facility] TDAP Unknown Completed [facility] Influenza Virus Vaccine Quad IM 3+ YRS Unknown Completed [facility] HPV9 Unknown Completed [facility] TDAP Unknown Completed [facility] Influenza Virus Vaccine Quad IM 3+ YRS Unknown Completed [facility] HPV9 Unknown Completed [facility] TDAP Unknown Completed [facility] Influenza Virus Vaccine Quad IM 3+ YRS Unknown Completed [facility] HPV9 Unknown Completed [facility] TDAP Unknown Completed [facility] Influenza Virus Vaccine Quad IM 3+ YRS Unknown Completed [facility] HPV9 Unknown Completed [facility] TDAP Unknown Completed [facility] Influenza Virus Vaccine Quad IM 3+ YRS Unknown Completed [facility] HPV9 Unknown Completed [facility] TDAP Unknown Completed [facility] Influenza Virus Vaccine Quad IM 3+ YRS Unknown Completed [facility] HPV9 Unknown Completed [facility] TDAP Unknown Completed [facility] Influenza Virus Vaccine Quad IM 3+ YRS Unknown Completed [facility] HPV9 Unknown Completed [facility] TDAP Unknown Completed [facility] Influenza Virus Vaccine Quad IM 3+ YRS Unknown Completed [facility] HPV9 Unknown Completed [facility] TDAP Unknown Completed [facility] Influenza Virus Vaccine Quad IM 3+ YRS Unknown Completed [facility] HPV9 Unknown Completed [facility] TDAP Unknown Completed [facility] Influenza Virus Vaccine Quad IM 3+ YRS Unknown Completed [facility] HPV9 Unknown Completed [facility] TDAP Unknown Completed [facility] Influenza Virus Vaccine Quad IM 3+ YRS Unknown Completed [facility] HPV9 Unknown Completed [facility] TDAP Unknown Completed [facility] Influenza Virus Vaccine Quad IM 3+ YRS Unknown Completed [facility] HPV9 Unknown Completed [facility] TDAP Unknown Completed [facility] Influenza Virus Vaccine Quad IM 3+ YRS Unknown Completed [facility] HPV9 Unknown Completed [facility] TDAP Unknown Completed [facility] Influenza Virus Vaccine Quad IM 3+ YRS Unknown Completed [facility] Vital Signs Vital Name Observation Time Observation Value Comments S cruzce Systolic blood pressure 2024-11-18 19:27:00 126 mm[Hg] [facility] Diastolic blood pressure 2024-11-18 19:27:00 78 mm[Hg] [facility] Heart rate 2024-11-18 19:27:00 70 /min [facility] temperature 2024-11-18 19:27:00 36.67 [facility] Respiratory rate 2024-11-18 19:27:00 18 /min [facility] Body height 2024-11-18 19:27:[address] [facility] Body weight 2024-11-18 19:27:[address] [facility] BMI 2024-11-18 19:27:00 31.33 kg/m2 [facility] Systolic blood pressure 2024-05-13 17:53:00 115 mm[Hg] [facility] Diastolic blood pressure 2024-05-13 17:53:00 76 mm[Hg] [facility] Heart rate 2024-05-13 17:53:00 74 /min [facility] Body temperature 2024-05-13 17:53:00 36.67 [facility] Respiratory rate 2024-05-13 17:53:00 18 /min [facility] Body height 2024-05-13 17:53:[address] [facility] Body weight 2024-05-13 17:53:[address] [facility] BMI 2024-05-13 17:53:00 29.32 kg/m2 [facility] BP Systolic 2024-02-15 00:00:00 108 mm[Hg] [facility] BP Diastolic 2024-02-15 00:00:00 71 mm[Hg] [facility] BMI (Body Mass Index) 2024-02-15 00:00:00 30.6 kg/m2 [facility] Height 2024-02-15 00:00:00 60 [in_i] [facility] Body Weight 2024-02-15 00:00:00 156.9 [lb_av] [facility] BP Systolic 2024-02-01 00:00:00 113 mm[Hg] [facility] Body Weight 2024-02-01 00:00:00 157.3 [lb_av] [facility] BMI (Body Mass Index) 2024-02-01 00:00:00 30.7 kg/m2 [facility] BP Diastolic 2024-02-01 00:00:00 81 mm[Hg] [facility] Height 2024-02-01 00:00:00 60 [in_i] [facility] BP Systolic 2024-01-31 00:00:00 127 mm[Hg] [facility] Body Weight 2024-01-31 00:00:00 159.2 [lb_av] [facility] BMI (Body Mass Index) 2024-01-31 00:00:00 31.1 kg/m2 [facility] Height 2024-01-31 00:00:00 60 [in_i] [facility] BP Diastolic 2024-01-31 00:00:00 75 mm[Hg] [facility] Systolic blood pressure 2024-01-11 16:12:00 116 mm[Hg] [facility] Diastolic blood pressure 2024-01-11 16:12:00 79 mm[Hg] [facility] Heart rate 2024-01-11 16:12:00 85 /min [facility] Body temperature 2024-01-11 16:12:00 36.61 [facility] Respiratory rate 2024-01-11 16:12:00 18 /min [facility] Body height 2024-01-11 16:12:[address] [facility] Body weight 2024-01-11 16:12:[address] [facility] BMI 2024-01-11 16:12:00 29.80 kg/m2 [facility] Oxygen saturation in Arterial blood by Pulse oximetry 2024-01-11 16:12:00 99 /min [facility] Systolic blood pressure 2023-10-24 19:18:00 119 mm[Hg] [facility] Diastolic blood pressure 2023-10-24 19:18:00 75 mm[Hg] [facility] Heart rate 2023-10-24 19:18:00 98 /min [facility] Body temperature 2023-10-24 19:18:00 37.17 [facility] Respiratory rate 2023-10-24 19:18:00 16 /min [facility] Body weight 2023-10-24 19:18:[address] [facility] BMI 2023-10-24 19:18:00 31.31 kg/m2 [facility] Oxygen saturation in Arterial blood by Pulse oximetry 2023-10-24 19:18:00 97 /min [facility] Systolic blood pressure 2023-02-28 13:12:00 123 mm[Hg] [facility] Diastolic blood pressure 2023-02-28 13:12:00 88 mm[Hg] [facility] Heart rate 2023-02-28 13:12:00 91 /min [facility] Body temperature 2023-02-28 13:12:00 36.83 [facility] Respiratory rate 2023-02-28 13:12:00 18 /min [facility] Body height 2023-02-28 13:12:[address] [facility] Body weight 2023-02-28 13:12:[address] [facility] BMI 2023-02-28 13:12:00 29.56 kg/m2 [facility] BP Diastolic 2022-11-02 00:00:00 72 mm[Hg] [facility] Height 2022-11-02 00:00:00 64 [in_i] [facility] BMI (Body Mass Index) 2022-11-02 00:00:00 25 kg/m2 [facility] BP Systolic 2022-11-02 00:00:00 108 mm[Hg] [facility] Body Weight 2022-11-02 00:00:00 145.4 [lb_av] [facility] BP Diastolic 2022-10-12 00:00:00 83 mm[Hg] [facility] Height 2022-10-12 00:00:00 64 [in_i] [facility] BMI (Body Mass Index) 2022-10-12 00:00:00 24.6 kg/m2 [facility] BP Systolic 2022-10-12 00:00:00 114 mm[Hg] [facility] Body Weight 2022-10-12 00:00:00 143.3 [lb_av] [facility] BP Diastolic 2022-09-12 00:00:00 79 mm[Hg] [facility] Height 2022-09-12 00:00:00 64 [in_i] [facility] BMI (Body Mass Index) 2022-09-12 00:00:00 25.6 kg/m2 [facility] BP Systolic 2022-09-12 00:00:00 119 mm[Hg] [facility] Body Weight 2022-09-12 00:00:00 148.9 [lb_av] [facility] Systolic blood pressure 2022-07-07 20:00:00 107 mm[Hg] [facility] Diastolic blood pressure 2022-07-07 20:00:00 67 mm[Hg] [facility] Heart rate 2022-07-07 20:00:00 74 /min [facility] Body temperature 2022-07-07 20:00:00 36.44 [facility] Respiratory rate 2022-07-07 20:00:00 18 /min [facility] Body height 2022-07-07 20:00:[address] [facility] Body weight 2022-07-07 20:00:[address] [facility] BMI 2022-07-07 20:00:00 28.91 kg/m2 [facility] Procedures Procedure Date / Time Performed Performing Clinician Source HIV 1/2 AG-AB WITH REFLEX 2024-11-18 20:06:00 Shelby Mercer [facility] SYPHILIS IGG/IGM 2024-11-18 20:06:00 Shelby Mercer [facility] GALV ONLY - VAGINAL PATHOGENS BY NUCLEIC ACID TESTING 2024-11-18 20:02:00 Shelby Mercer [facility] POCT TEST 2024-11-18 19:52:00 Shelby Mercer [facility] ULTRASOUND, UTERUS REAL TIME WITH IMAGE DOCUMENTAITON, TRANSVAGINAL 2024-01-31 00:00:00 [facility] ULTRASOUND, UTERUS REAL TIME WITH IMAGE DOCUMENTAITON, TRANSVAGINAL 2024-01-23 00:00:00 [facility] POCT URINALYSIS 2024-01-11 00:00:00 Radha James Un [facility] POCT TEST 2024-01-11 00:00:00 Gwendolyn James y [facility] POCT TEST 2023-10-24 19:23:00 Gwendolyn James y [facility] GALV ONLY - VAGINAL PATHOGENS BY NUCLEIC ACID TESTING 2023-10-24 19:20:00 Radha James [facility] POCT URINALYSIS 2023-10-24 19:19:00 Radha James Un [facility] ASSIGNMENT OF BENEFITS 2023-10-24 19:09:13 Docto r Unassigned, Kula [facility] CBC WITH DIFF 2023-02-28 13:55:00 Ena Dalton [facility] GLYCOSYLATED HEMOGLOBIN (A1C) 2023-02-28 13:55:00 Ena Dalotn [facility] HCV ANTIBODY 2023-02-28 13:55:00 Ena Dalton [facility] GC & CHLAMYDIA AMPLIFIED ASSAY 2023-02-28 13:55:00 Ena Dalton [facility] GALV ONLY - VAGINAL PATHOGENS BY NUCLEIC ACID TESTING 2023-02-28 13:55:00 Ena Dalton [facility] HIV 1/2 AG-AB WITH REFLEX 2023-02-28 13:55:00 Ena Dalton [facility] SYPHILIS IGG/IGM 2023-02-28 13:55:00 Ena Dalton [facility] ASSIGNMENT OF BENEFITS 2023-02-28 12:47:02 Docto r Unassigned, Kula [facility] US, transvaginal 2022-11-16 00:00:00 [facility] REFERRAL- REQUEST/RESPONSE 2022-10-14 06:01:00 Doctor Unassigned, Kula [facility] US, transvaginal 2022-09-12 00:00:00 [facility] POCT TEST 2022-07-07 20:02:00 Meet Hicks [facility] Salpingectomy, Laparoscopic (Surg) [facility] Plan of Care Planned Activity Planned Date Details Comments Source Diagnostic Test Pending 2024-02-15 00:00:00 urinalysis, dipstick [code = urinalysis, dipstick] [facility] Diagnostic Test Pending 2024-02-15 00:00:00 wet mount, vaginal [code = wet mount, vaginal] [facility] Instructions [facility] Encounters Start Date/Time End Date/Time Encounter Type Admission Type Attending Clinicians Care Facility Care Department Encounter ID Source 2022-10-12 10:36:13 Outpatient [facility] [id number] [facility] 2024-12-02 07:30:00 2024-12-02 07:30:00 Outpatient R [facility] [id number] [facility] 2024-12-02 07:00:00 2024-12-02 07:00:00 Outpatient R [facility] [id number] [facility] 2024-11-19 00:00:00 2024-11-19 13:57:55 Case Management Shelby Mercer [facility] ELECTRICAL TESTS SUPERVISOR [facility] MATERNAL & CHILD [facility] ..840.114 350.1.13.10 4.2.7.2.686 [id number] 107 [id number] [facility] 2024-11-18 13:00:00 2024-11-18 14:02:40 Outpatient R SHELBY MERCER [facility] [id number] [facility] 2024-11-18 13:00:00 2024-11-18 14:02:40 Office Visit Shelby Mercer [facility] ELECTRICAL TESTS SUPERVISOR [facility] MATERNAL & CHILD [facility] ..840.114 350.1.13.10 4.2.7.2.686 [id number] 107 [id number] [facility] 2024-09-15 00:00:00 2024-09-15 09:07:09 RefStephanie Grey [facility] ELECTRICAL TESTS SUPERVISOR [facility] & CHILD [facility] 1.2.840.114 350.1.13.10 4.2.7.2.686 [id number] 107 [id number] [facility] 2024-09-15 00:00:00 2024-09-15 09:04:53 Refill Stephanie Hicks [facility] ELECTRICAL TESTS SUPERVISOR [facility] CHILD [facility] 1.2.840.114 350.1.13.10 4.2.7.2.686 [id number] [facility] 2024-09-14 00:00:00 2024-09-15 07:57:34 RefStephanie Grey [facility] 1.840.114 350.1.13.10 4.2.7.2.686 [id number] 107 [id number] [facility] 2024-09-02 09:45:00 2024-09-02 09:45:00 Outpatient R STEPHANIE HICKS [facility] [id number] [facility] 2024-05-16 00:00:00 2024-05-16 15:58:25 Telephone Ena Dalton [facility] ELECTRICAL TESTS SUPERVISOR [facility] CHILD [facility] 1..840.114 350.1.13.10 4.2.7.2.686 [id number] 107 [id number] [facility] 2024-05-15 00:00:00 2024-05-15 07:53:35 Case Management Ena Dalton [facility] ELECTRICAL TESTS SUPERVISOR [facility] & CHILD [facility] 1.2.840.114 350.1.13.10 4.2.7.2.686 [id number] 107 [id number] [facility] 2024-05-13 12:45:00 2024-05-13 13:28:19 Outpatient R STEPHANIE HICKS [facility] [id number] [facility] 2024-05-13 12:45:00 2024-05-13 13:00:00 Office Visit Chaddyasmeenjess Stephanie Henderson [facility] 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 [id number] [facility] 2024-02-15 00:00:00 2024-02-15 00:00:00 Elise Hernandez MD: [address] [facility], [address], [place] [address] , Ph. [phone] [facility] [id number] [facility] 2024-02-01 14:23:00 2024-02-01 14:23:00 Outpatient ELISE IRBY [facility] [id number] [facility] 2024-02-01 00:00:00 2024-02-01 00:00:00 Elise Hernandez MD: [address] [place] [address], [address], [place] [address] , Ph. [phone] [facility] [id number] [facility] 2024-01-31 15:00:00 2024-01-31 15:00:00 Outpatient ELISE IRBY [facility] [id number] [facility] 2024-01-31 00:00:00 2024-01-31 00:00:00 Elise Hernandez MD: [address] [facility] [facility], [address], [place] [address] , Ph. [phone] [facility] [id number] [facility] 2024-01-29 00:00:00 2024-01-29 00:00:00 Outpatient White_M [facility] [id number] [facility] 2024-01-25 14:19:00 2024-01-25 14:19:00 Outpatient ERICH CHARLES [facility] [id number] [facility] 2024-01-23 09:29:00 2024-01-23 09:29:00 Outpatient ERICH CHARLES [facility] [id number] [facility] 2024-01-23 00:00:00 2024-01-23 00:00:00 BISHOP Gray-: [address], [address], [place] [address] , Ph. [phone] White_M [facility] [id number] [facility] 2024-01-22 08:15:00 2024-01-22 08:15:00 Outpatient ENA CONTEH [facility] [id number] [facility] 2024-01-16 00:00:00 2024-01-16 00:00:00 Outpatient White_M [facility] [id number] [facility] 2024-01-11 14:00:00 2024-01-11 14:00:00 Outpatient ANAND JOLLEY [facility] [id number] [facility] 2024-01-11 11:00:00 2024-01-11 11:20:14 Outpatient RADHA DYE [facility] [id number] [facility] 2024-01-11 11:00:00 2024-01-11 11:20:14 Urgent Care Radha James Unknown, Attending [facility] 1..840.114 350.1.13.10 4.2.7.2.686 [id number] [facility] 2023-10-24 13:00:00 2023-10-24 13:27:23 Outpatient R RADHA JAMES [facility] [id number] [facility] 2023-10-24 13:00:00 2023-10-24 13:27:23 Urgent Care Radha James Unknown, Attending [facility]?MAUREEN [facility] MEDICAL OFFICE BUILD[facility] 1..840.114 350.1.13.10 4.2.7.2.686 [id number] 370 [id number] [facility] 2023-10-24 00:00:00 2023-10-24 00:00:00 Orders Only Doctor Unassigned, Kula [facility] 1..840.114 350.1.13.10 4.2.7.2.686 [id number] [facility] 2023-04-23 13:15:00 2023-04-23 13:15:00 Outpatient R STEPHANIE HICKS [facility] [id number] [facility] 2023-04-02 14:30:00 2023-04-02 14:30:00 Outpatient R IVY MONTEJO [facility] [id number] [facility] 2023-03-31 00:00:00 2023-03-31 00:00:00 Patient Secure Msg Ena Dalton [facility] ELECTRICAL TESTS SUPERVISOR [facility] MATERNAL & CHILD [facility] 1..840.114 350.1.13.10 4.2.7.2.686 [id number] 107 [id number] [facility] 2023-03-02 00:00:00 2023-03-02 00:00:00 Case Management Ena Dalton [facility] ELECTRICAL TESTS SUPERVISOR [facility] & CHILD [facility] 1.2.840.114 350.1.13.10 4.2.7.2.686 [id number] [facility] 2023-03-02 00:00:00 2023-03-02 00:00:00 Telephone KurtArunStephanie C [facility] ELECTRICAL TESTS SUPERVISOR [facility] & CHILD [facility] 1.2.840.114 350.1.13.10 4.2.7.2.686 [id number] 107 [id number] [facility] 2023-03-02 00:00:00 2023-03-02 00:00:00 Patient Secure Msg Ena Dalton [facility] ELECTRICAL TESTS SUPERVISOR [facility] CHILD [facility] 1.2.840.114 350.1.13.10 4.2.7.2.686 [id number] 107 [id number] [facility] 2023-02-28 07:45:00 2023-02-28 08:57:53 Outpatient R ENA DALTON [facility] [id number] [facility] 2023-02-28 07:45:00 2023-02-28 08:57:53 Office Visit Ena Dalton [facility] ELECTRICAL TESTS SUPERVISOR [facility] CHILD [facility] 1.2.840.114 350.1.13.10 4.2.7.2.686 [id number] 107 [id number] [facility] 2023-02-28 00:00:00 2023-02-28 00:00:00 Orders Only Doctor Unassigned, Kula [facility] 1.2.840.114 350.1.13.10 4.2.7.2.686 [id number] [facility] 2023-01-30 14:45:00 2023-01-30 14:45:00 Outpatient ENA CONTEH [facility] [id number] [facility] 2022-12-19 14:30:00 2022-12-19 14:30:00 Outpatient VELIA BAINS [facility] [id number] [facility] 2022-11-16 00:00:00 2022-11-16 00:00:00 Outpatient White_M [facility]G [facility] [id number] [facility] 2022-11-16 00:00:00 2022-11-16 00:00:00 TK GrayBC: [address] [address] , Ph. [phone] [facility] [id number] [facility] 2022-11-02 15:26:00 2022-11-02 15:26:00 Outpatient VERO CHARLESAN [facility] [id number] [facility] 2022-11-02 00:00:00 2022-11-02 00:00:00 TK GrayBC: [address] [facility] [address], [place] [address] , Ph. [phone] [facility] [id number] [facility] 2022-10-14 00:00:00 2022-10-14 00:00:00 Orders Only Doctor Unassigned, Kula [facility] 1.2.840.114 350.1.13.10 4.2.7.2.686 [id number] [facility] 2022-10-12 00:00:00 2022-10-12 00:00:00 Outpatient White_M MMG [facility] [id number] [facility] 2022-10-12 00:00:00 2022-10-12 00:00:00 Outpatient White_M MMG [facility] [id number] [facility] 2022-10-12 00:00:00 2022-10-12 00:00:00 TK GrayBC: [address] [facility] [address], [place] [address] , Ph. [phone] [facility] [place] [facility] [id number] [facility] 2022-10-06 09:00:00 2022-10-06 09:00:00 Outpatient STEPHANIE BAKER [facility] [id number] [facility] 2022-09-12 15:04:00 2022-09-12 15:04:00 Outpatient ERICH CHARLES [facility] [id number] [facility] 2022-09-12 00:00:00 2022-09-12 00:00:00 Outpatient Ariela_M MM[facility] [id number] [facility] 2022-09-12 00:00:00 2022-09-12 00:00:00 BISHOP Gray-BC: [address] [address] , Ph. [phone] [facility] [place] [facility] [id number] [facility] 2022-07-07 14:45:00 2022-07-07 15:27:14 Office Visit Stephanie Hicks [facility] ELECTRICAL TESTS SUPERVISOR [facility] MATERNAL & CHILD [facility] 1.2.840.114 350.1.13.10 4.2.7.2.686 [id number] [facility] 2022-07-07 14:45:00 2022-07-07 15:27:14 Outpatient R STEPHANIE HICKS [facility] [id number] [facility] 2022-07-07 14:45:00 2022-07-07 14:45:00 Outpatient R STEPHANIE HICKS [facility] [id number] [facility] 2022-07-07 08:15:00 2022-07-07 08:15:00 Outpatient RICHARD GRAVES [facility] [id number] [facility] 2022-06-27 00:00:00 2022-06-27 00:00:00 Patient Secure Msg Stephanie Hicks [facility] ELECTRICAL TESTS SUPERVISOR [facility] MATERNAL & CHILD [facility] 1..840.114 350.1.13.10 4.2.7.2.686 [id number] 107 [id number] [facility] 2022-06-21 10:30:00 2022-06-21 11:49:35 Office Visit Kurt Stephanie Beatriz [facility] ELECTRICAL TESTS SUPERVISOR [facility] CHILD [facility] 1..840.114 350.1.13.10 4.2.7.2.686 [id number] 107 [id number] [facility] 2022-06-21 10:30:00 2022-06-21 11:49:35 Outpatient R STEPHANIE HICKS [facility] [id number] [facility] 2022-06-21 10:30:00 2022-06-21 10:30:00 Outpatient R STEPHANIE HICKS [facility] [id number] [facility] 2022-06-19 10:15:00 2022-06-19 10:15:00 Outpatient R STEPHANIE HICKS [facility] [id number] [facility] 2022-06-16 14:00:00 2022-06-16 14:00:00 Outpatient R KURT STEPHANIE [facility] [id number] [facility] 2022-06-16 00:00:00 2022-06-16 00:00:00 Telephone Stephanie Hicks [facility] ELECTRICAL TESTS SUPERVISOR [facility] CHILD [facility] ..840.114 350.1.13.10 4.2.7.2.686 [id number] 107 [id number] [facility] 2022-04-25 08:15:00 2022-04-25 08:15:00 Outpatient R STEPHANIE HICKS [facility] [id number] [facility] 2022-04-18 14:15:00 2022-04-18 14:15:00 Outpatient R STEPHANIE HICKS [facility] [id number] [facility] 2022-04-14 00:00:00 2022-04-14 00:00:00 Telephone Stephanie Hicks [facility] ELECTRICAL TESTS SUPERVISOR [facility] CHILD [facility] 1.2.840.114 350.1.13.10 4.2.7.2.686 [id number] 107 [id number] [facility] 2022-04-14 00:00:00 2022-04-14 00:00:00 Patient Secure Msg Stephanie Hicks [facility] ELECTRICAL TESTS SUPERVISOR [facility] CHILD [facility] 1.2.840.114 350.1.13.10 4.2.7.2.686 [id number] 107 [id number] [facility] 2022-04-04 00:00:00 2022-04-04 00:00:00 Patient Secure Msg Stephanie Hicks [facility] ELECTRICAL TESTS SUPERVISOR [facility] CHILD [facility] 1.2.840.114 350.1.13.10 4.2.7.2.686 [id number] 107 [id number] [facility] 2022-04-03 00:00:00 2022-04-03 00:00:00 Patient Secure MsStephanie Ac PRCHRISTIN ELECTRICAL TESTS SUPERVISOR [facility] CHILD [facility] 1.2.840.114 350.1.13.10 4.2.7.2.686 [id number] 107 [id number] [facility] 2022-04-03 00:00:00 2022-04-03 00:00:00 Telephone Stephanie Hicks [facility] ELECTRICAL TESTS SUPERVISOR [facility] CHILD [facility] 1.2.840.114 350.1.13.10 4.2.7.2.686 [id number] 107 [id number] [facility] 2022-03-31 16:00:00 2022-03-31 16:29:52 Outpatient R STEPHANIE HICKS [facility] [id number] [facility] 2022-03-31 16:00:00 2022-03-31 16:29:52 Office Visit Stephanie Hicks [facility] ELECTRICAL TESTS SUPERVISOR [facility]ILD [facility] 1..114 350.1.13.10 4.2.7.2.686 [id number] 107 [id number] [facility] 2022-03-31 00:00:00 2022-03-31 00:00:00 Orders Only Doctor Unassigned, Kula [facility] 1.114 350.1.13.10 4.2.7.2.686 [id number] [facility] 2022-01-30 13:00:00 2022-01-30 13:00:00 Outpatient R KARLA BURRELL [facility] [id number] [facility] 2021-11-12 00:00:00 2021-11-12 00:00:00 Patient Secure Msg Doctor Unassigned, Kula [facility] 1.114 350.1.13.10 4.2.7.2.686 [id number] [facility] 2021-11-11 14:00:00 2021-11-11 14:00:00 Outpatient R STEPHANIE HICKS [facility] [id number] [facility] 2021-11-11 14:00:00 2021-11-11 14:00:00 Outpatient R STEPHANIE HICKS [facility] [id number] [facility] 2021-10-28 13:45:00 2021-10-28 14:59:43 Outpatient R STEPHANIE HICKS [facility] [id number] [facility] 2021-10-28 13:45:00 2021-10-28 14:59:43 Office Visit Stephanie Hicks [facility] ELECTRICAL TESTS SUPERVISOR [facility]ILD [facility] 1.114 350.1.13.10 4.2.7.2.686 [id number] 107 [id number] [facility] 2021-05-25 00:00:00 2021-05-25 00:00:00 Telephone Stephanie Hicks [facility] ELECTRICAL TESTS SUPERVISOR [facility] 1..114 350.1.13.10 4.2.7.2.686 [id number] 107 [id number] [facility] 2021-05-24 15:15:00 2021-05-24 15:15:00 Outpatient R STEPHANIE HICKS [facility] [id number] [facility] 2021-05-11 16:00:00 2021-05-11 16:00:00 Outpatient R STEPHANIE HICKS [facility] [id number] [facility] 2021-04-26 00:00:00 2021-04-26 00:00:00 Telephone Stephanie Hicks [facility] ELECTRICAL TESTS SUPERVISOR [facility] 1..114 350.1.13.10 4.2.7.2.686 [id number] 107 [id number] [facility] 2021-04-14 13:45:00 2021-04-14 13:45:00 Outpatient P [facility] [id number] [facility] 2021-04-05 15:45:00 2021-04-05 15:45:00 Outpatient R STEPHANIE HICKS [facility] [id number] [facility] 2021-04-04 00:00:00 2021-04-04 00:00:00 Patient Secure Msg Doctor Unassigned, Kula [facility]LECTR[facility] 1..114 350.1.13.10 4.2.7.2.686 [id number] 107 [id number] [facility] 2021-03-30 00:00:00 2021-03-30 00:00:00 Patient Secure Msg Doctor Unassigned, Kula [facility] ..114 350.1.13.10 4.2.7.2.686 [id number] [facility] 2021-03-25 00:00:00 2021-03-25 00:00:00 Telephone Stephanie Hicks [facility] ELECTRICAL TESTS SUPERVISOR [facility]ILD [facility] 1.2840.114 350.1.13.10 4.2.7.2.686 [id number] 107 [id number] 2021-03-25 00:00:00 2021-03-25 00:00:00 Telephone Stephanie Hicks [facility] ELECTRICAL TESTS SUPERVISOR [facility] CHILD [facility] 1.0.114 350.1.13.10 4.2.7.2.686 [id number] 107 [id number] [facility] 2021-03-24 10:30:23 2021-03-24 10:47:41 [facility] I[facility] Varela [facility] ELECTRICAL TESTS SUPERVISOR [facility] CHILD [facility] 1..114 350.1.13.10 4.2.7.2.686 [id number] 107 [id number] [facility] 2021-03-24 10:30:00 2021-03-24 10:30:00 Outpatient R [facility] [id number] [facility] 2021-03-24 00:00:00 2021-03-24 00:00:00 Patient Secure Msg Doctor Unassigned, Kula [facility] 1..114 350.1.13.10 4.2.7.2.686 [id number] [facility] 2021-03-24 00:00:00 2021-03-24 00:00:00 Telephone Stephanie Hicks [facility] ELECTRICAL TESTS SUPERVISOR [facility] 1..114 350.1.13.10 4.2.7.2.686 [id number] 107 [id number] [facility] 2021-03-23 00:00:00 2021-03-23 00:00:00 Patient Secure Msg Julia Amayadeandredeangelo Kinsey [facility] ELECTRICAL TESTS SUPERVISOR [facility]ER[facility] 1.2.840.114 350.1.13.10 4.2.7.2.686 [id number] 107 [id number] [facility] 2021-03-22 15:10:35 2021-03-22 15:25:35 Initial Visit Stephanie Hicks [facility] ELECTRICAL TESTS SUPERVISOR [facility] 1.2.840.114 350.1.13.10 4.2.7.2.686 [id number] 107 [id number] [facility] 2021-03-22 15:00:00 2021-03-22 15:00:00 Outpatient STEPHANIE BAKER [facility] [id number] [facility] 2021-03-22 00:00:00 2021-03-22 00:00:00 Orders Only Doctor Unassigned, Kula [facility] 1.2.840.114 350.1.13.10 4.2.7.2.686 [id number] [facility] 2021-02-23 13:08:12 2021-02-23 13:35:01 Office Visit Julia Amayadeandredeangelo Kinsey [facility] ELECTRICAL TESTS [facility] 1.2.840.114 350.1.13.10 4.2.7.2.686 [id number] [facility] 2021-02-23 13:00:00 2021-02-23 13:00:00 Outpatient R RICHARD AMAYA [facility] [id number] [facility] 2021-02-16 09:30:00 2021-02-16 09:30:00 Outpatient Kinsey [facility] [id number] [facility] 2021-02-16 09:30:00 2021-02-16 09:30:00 Outpatient R RICHARD AMAYA [facility] [id number] [facility] 2021-02-14 00:00:00 2021-02-14 00:00:00 Patient Secure Msg Doctor Unassigned, Kula [facility] ELECTRICAL TESTS [facility] 1.2.840.114 350.1.13.10 4.2.7.2.686 [id number] [facility] 2021-02-14 00:00:00 2021-02-14 00:00:00 Patient Secure Msg Doctor Unassigned, Kula [facility] 1.2.840.114 350.1.13.10 4.2.7.2.686 [id number] [facility] 2021-02-02 10:05:24 2021-02-02 11:11:24 Routine Visit Richard Amaya [facility] ELECTRICAL TESTS SUPERVISOR [facility] 1..840.114 350.1.13.10 4.2.7.2.686 [id number] [facility] 2021-02-02 10:00:00 2021-02-02 10:00:00 Outpatient RICHARD GRAVES [facility] [id number] [facility] 2021-02-02 00:00:00 2021-02-02 00:00:00 Orders Only Doctor Unassigned, Kula [facility] 1.2.840.114 350.1.13.10 4.2.7.2.686 [id number] [facility] 2021-02-01 14:45:00 2021-02-01 14:45:00 Outpatient RICHARD GRAVES [facility] [id number] [facility] 2021-01-31 13:45:00 2021-01-31 13:45:00 Outpatient RICHARD GRAVES [facility] [id number] [facility] 2021-01-11 00:00:00 2021-01-11 00:00:00 Patient Outreach Pardeep Amaro [facility] PRIMARY [facility] [place] 1.84.114 350.1.13.10 4.2.7.2.686 [id number] [facility] 2021-01-10 14:26:11 2021-01-10 15:14:43 Initial Visit Richard Amaya [facility] ELECTRICAL TESTS SUPERVISOR [facility] MATERNAL & CHILD [facility] 1.840.114 350.1.13.10 4.2.7.2.686 [id number] [facility] 2021-01-10 14:00:00 2021-01-10 14:00:00 Outpatient RICHARD GRAVES [facility] [id number] [facility] 2021-01-10 00:00:00 2021-01-10 00:00:00 Orders Only Doctor Unassigned, Kula [facility] 1.84.114 350.1.13.10 4.2.7.2.686 [id number] [facility] 2021-01-03 14:00:00 2021-01-03 14:00:00 Outpatient R [facility] [id number] [facility] 2021-01-03 12:45:00 2021-01-03 12:45:00 Outpatient R RICHARD AMAYA [facility] [id number] [facility] 2020-12-28 13:15:00 2020-12-28 13:15:00 Outpatient R RICHARD AMAYA [facility] [id number] [facility] 2020-11-29 00:00:00 2020-11-29 00:00:00 Telephone Richard Amaya [facility] ELECTRICAL TESTS SUPERVISOR [facility] & CHILD [facility] 1.840.114 350.1.13.10 4.2.7.2.686 [id number] [facility] 2020-11-24 14:45:48 2020-11-24 15:26:28 Office Visit Richard Amaya [facility] ELECTRICAL TESTS SUPERVISOR [facility] MATERNAL & CHILD [facility] 1.2.840.114 350.1.13.10 4.2.7.2.686 [id number] [facility] 2020-11-24 14:45:00 2020-11-24 14:45:00 Outpatient R RICHARD AMAYA [facility] [id number] [facility] 2020-11-24 00:00:00 2020-11-24 00:00:00 Orders Only Doctor Unassigned, Kula [facility] 1..840.114 350.1.13.10 4.2.7.2.686 [id number] [facility] 2020-09-14 13:30:00 2020-09-14 13:30:00 Outpatient R RICHARD AMAYA [facility] [id number] [facility] 2020-09-13 00:00:00 2020-09-13 00:00:00 Telephone Richard Amaya [facility] ELECTRICAL TESTS SUPERVISOR [facility] MATERNAL & CHILD [facility] 1.2.840.114 350.1.13.10 4.2.7.2.686 [id number] [facility] 2020-09-09 15:00:00 2020-09-09 15:00:00 Outpatient R RICHARD AMAYA [facility] [id number] [facility] 2020-09-01 12:45:00 2020-09-01 12:45:00 Outpatient RICHARD GRAVES [facility] [id number] [facility] 2020-09-01 12:45:00 2020-09-01 12:45:00 Outpatient R RICHARD AMAYA [facility] [id number] [facility] 2020-07-29 09:45:00 2020-07-29 09:45:00 Outpatient STEPHANIE BAKER [facility] [id number] [facility] 2020-07-29 09:45:00 2020-07-29 09:45:00 Outpatient R STEPHANIE HICKS [facility] [id number] [facility] 2020-06-08 10:45:00 2020-06-08 10:45:00 Outpatient R STEPHANIE HICKS [facility] [id number] [facility] 2020-06-08 10:45:00 2020-06-08 10:45:00 Outpatient R STEPHANIE HICKS [facility] [id number] [facility] 2020-04-13 11:00:57 2020-04-13 11:44:15 Office Visit Richard Amaya [facility] ELECTRICAL TESTS SUPERVISOR [facility]NAL [facility] 1.2.840.114 350.1.13.10 4.2.7.2.686 [id number] [facility] 2020-04-13 11:00:00 2020-04-13 11:00:00 Outpatient R RICHARD AMAYA [facility] [id number] [facility] 2020-04-13 09:45:00 2020-04-13 09:45:00 Outpatient IDA KNOWLES [facility] [id number] [facility] 2020-03-09 10:30:00 2020-03-09 10:30:00 Outpatient RICHARD GRAVES [facility] [id number] [facility] 2020-03-04 00:00:00 2020-03-04 00:00:00 Telephone Ida Varela [facility] ELECTRICAL TESTS SUPERVISOR [facility] CHILD [facility] 1..840.114 350.1.13.10 4.2.7.2.686 [id number] [facility] 2020-01-12 15:30:00 2020-01-12 15:30:00 Outpatient IDA KNOWLES [facility] [id number] [facility] 2020-01-07 00:00:00 2020-01-07 00:00:00 Patient Secure Msg Doctor Unassigned, Kula [facility] ELECTRICAL TESTS SUPERVISOR [facility]ILD [facility] 1.2840.114 350.1.13.10 4.2.7.2.686 [id number] [facility] 2020-01-05 13:19:07 2020-01-05 14:07:46 Office Visit Stephanie Hicks [facility] ELECTRICAL TESTS SUPERVISOR [facility] CHILD [facility] 1.2840.114 350.1.13.10 4.2.7.2.686 [id number] [facility] 2020-01-05 13:15:00 2020-01-05 13:15:00 Outpatient R STEPHANIE HICKS [facility] [id number] [facility] 2019-12-12 08:00:00 2019-12-12 08:00:00 Outpatient R RICHARD AMAYA [facility] [id number] [facility] 2019-12-11 00:00:00 2019-12-11 00:00:00 Patient Secure Msg Ida Varela [facility] ELECTRICAL TESTS SUPERVISOR [facility] CHILD [facility] 1.0.114 350.1.13.10 4.2.7.2.686 [id number] [facility] 2019-12-08 11:15:24 2019-12-08 11:43:05 Office Visit Richard Amaya [facility] ELECTRICAL TESTS SUPERVISOR [facility]ILD [facility] 1.20.114 350.1.13.10 4.2.7.2.686 [id number] [facility] 2019-12-08 00:00:00 2019-12-08 00:00:00 Orders Only Doctor Unassigned, Kula [facility] 1.2840.114 350.1.13.10 4.2.7.2.686 [id number] [facility] 2019-11-28 00:00:00 2019-11-28 00:00:00 Telephone Ida Varela [facility] ELECTRICAL TESTS SUPERVISOR [facility] MATERNAL & CHILD [facility] 1.2.840.114 350.1.13.10 4.2.7.2.686 [id number] 107 [id number] [facility] 2019-11-25 08:40:20 2019-11-25 09:30:23 Office Visit Ida Varela Sue [facility] ELECTRICAL TESTS SUPERVISOR [facility] CHILD [facility] 1.2.840.114 350.1.13.10 4.2.7.2.686 [id number] [facility] 2019-11-25 00:00:00 2019-11-25 00:00:00 Telephone AlejandroIda Sue [facility] ELECTRICAL TESTS SUPERVISOR [facility] CHILD [facility] 1.2.840.114 350.1.13.10 4.2.7.2.686 [id number] 107 [id number] [facility] 2019-11-05 00:00:00 2019-11-05 00:00:00 Telephone Stephanie Hicks [facility] ELECTRICAL TESTS SUPERVISOR [facility] CHILD [facility] 1.2.840.114 350.1.13.10 4.2.7.2.686 [id number] [facility] 2019-06-17 12:53:35 2019-06-17 13:48:17 Office Visit AlejandroIda Sue [facility] ELECTRICAL TESTS SUPERVISOR [facility] CHILD [facility] 1.2.840.114 350.1.13.10 4.2.7.2.686 [id number] [facility] 2019-06-17 00:00:00 2019-06-17 00:00:00 Orders Only Doctor Unassigned, Kula [facility] 1.2.840.114 350.1.13.10 4.2.7.2.686 [id number] [id number] [facility] Results Test Description Test Time Test Comments Results Result Co mments Source [facility] [id number] 23:45:00* Test Item Value Reference Range Interpretation [...] milliInternationalunits/mL SHOULD BE CONSIDERED NEGATIVE - DUP AB/PEL/SC/[id number] 23:00:00 [facility] 1995 Sex: FPatient Name: DEREK GARCIA Unit No: [id number] EXAMS: CPT CODE: [id number] DUP AB/PEL/SC/LTD 77093 EXAM: - US PREG EVAL 1ST TRIMTR, [...] Technologist: Luma Watkins RDMS Probe: TrnscrbdD/ (2300) t.SDR.HMS3 Orig Print D/T: S: 04/08/2024 (2304) [facility] NAME: DEREK GARCIA Radiology Department PHYS: Flor Rouse MD [address] : 1995 AGE: 28 SEX: F [place] [address] LOC: OfeliaERS PHONE #: [phone] EXAM DATE: 04/08/2024 STATUS: REG ER FAX #: [phone] RAD NO: Page 1 Signed Report Patient Name: TOYIN GARCIALYN Unit No: [id number] EXAMS: CPT CODE: [id number] DUP AB/PEL/SC/LTD 22730 (Continued) [facility] NAME: DEREK GARCIA Radiology Department PHYS: IMELDA Flor Rouse [address] : 1995 AGE: 28 SEX: F [place] [address] LOC: OfeliaERSPHONE #: [phone] EXAM DATE: 04/08/2024 STATUS: REG ER FAX #: [phone] RAD NO: Page 2 Signed Report- US PREG UT [id number] 23:00:00 [facility] : 1995 Sex: FPatient Name: DEREK GARCIA Unit No: [id number] EXAMS: CPT CODE: [id number] US PREG UT TRANSVAGINAL 22933 EXAM: - US PREG EVAL 1ST TRIMTR, [...] structure in the right adnexa measures 2.1 x1.3 x 1.7 cm. Left ovary: 2.3 x 1.6 x 1.5 cm. Normal blood flow on Doppler interrogation. No suspicious mass. Other: No free fluid in the pelvis. IMPRESSION: No intrauterine . Echogenic structure in the right adnexa measuring 2.1 x 1.3 x 1.7 cm may represent an ectopic . Thickened endometrium measures 1.7 cm with multiple nonspecific prominent vessels/vasculature within the myom etrium. at 2300 Reported and signed by: Darinel Hall M.D. CC: Flor Rouse MD Technologist: Luma Watkins, [facility] Probe: [id number] Trnscrbd D/ (2299) BrooklynHMS3 Orig Print D/T: S: 04/08/2024 (2303) [facility] NAME: DEREK GARCIA Radiology Department PHYS: ALISHA Flor Rouse MD [address] 1995 AGE: 28 SEX: F [place], [place] [address] LOC: F.ERS PHONE #: [phone] EXAM DATE: 04/08/2024 STATUS: REG ER FAX #: [phone] RAD NO: Page 1 Signed ReportPatient Name: TOYIN GARCIALYN Unit No: [id number] EXAMS: CPT CODE: [id number] US PREG UT TRANSVAGINAL 40111 (Continued) [facility] NAME: DEREK GARCIA Radiology Department PHYS: IMELDAEmerson Flor Rouse MD [address] : 1995 AGE: 28 SEX: F [place], [place] [address] LOC: F.ERS PHONE #: [phone] EXAM DATE: 04/08/2024 STATUS: REG ER FAX #: [phone] RAD NO: Page 2 Signed Report- US PREG EVAL 1ST [id number] 23:00:00[facility] 1995 Sex: FPatient Name: DEREK GARCIA Unit No: [id number] EXAMS: CPT CODE: [id number] US PREG EVAL 1ST TRIMTR 36401 EXAM: - US PREG EVAL 1ST TRIMTR, [...] structure in the right adnexa measures 2.1 x1.3 x 1.7 cm. Left ovary: 2.3 x 1.6 x 1.5 cm. Normal blood flow on Doppler interrogation. No suspicious mass. Other: No free fluid in the pelvis. IMPRESSION: No intrauterine . Echogenic structure in the right adnexa measuring 2.1 x 1.3 x 1.7 cm may represent an ectopic . Thickenedendometrium measures 1.7 cm with multiple nonspecific prominent vessels/vasculature within the myome trium. at 2300 Reported and signed by: Darinel Hall M.D. CC: Flor Rouse MD Technologist: Luma Watkins RDMS Probe: Trnscrbd D/ (2300) t.SDR.HMS3 Orig Print D/T: S: 04/08/2024 (2304) [facility] NAME: DEREK GARCIA Radiology Department PHYS: Flor Rouse MD [address] : 1995 AGE: 28 SEX: F [place], [place] [address] LOC: OfeliaERS PHONE #: [phone] EXAM DATE: 04/08/2024 STATUS: REG ER FAX #: [phone] RAD NO: Page 1 Signed Report Patient Name: DEREK GARCIA Unit No: [id number] EXAMS: CPT CODE: [id number] US PREG EVAL 1ST TRIMTR 19848 (Continued) [facility] NAME: DEREK GARCIA Radiology Department PHYS: Tommie - Flor Rouse MD [address] : 1995 AGE: 28 SEX: F [place], [place] [address] LOC: OfeliaERS PHONE #: [phone] EXAM DATE: 04/08/2024 STATUS: REG ER FAX #: [phone] RAD NO: Page 2 Signed ReportMicroscopic observation [Identifier] in Vaginal fluid by Wet eokgocntwsf9685-99-17 16:35:18* Test Item Value Reference Range Interpretation Comme nts Clue Cells (test code = Clue Cells) negative WBCs (test code = WBCs) positive Trichomonads (test code = Trichomonads) negative Epithelial cells (test code = Epithelial cells) normal RBCs (test code = RBCs) negative [facility] (dipstick) panel - [id number] 14:37:04* Test Item Value Reference Range Interpretation Comme nts Leukocytes (test code = Leukocytes) Negative Nitrite (test code = Nitrite) negative Urobilinogen (test code = Urobilinogen) .2 Protein (test code = Protein) Negative pH (test code = pH) 6.0 Blood (test code = Blood) Non-Hemolyzed: Trace Specific [place] (test code = Specific [place]) 1.025 Ketone (test code = Ketone) Negative Bilirubin (test code = Bilirubin) Negative Glucose (test code = Glucose) Negative Appearance (test code = Appearance) Clear Color (test code = Color) Yellow [facility] CenterCBC W Auto Differential panel - [id number] 14:43:00 * Test Item Value Reference Range [...] NRBC# (test code = NRBC#) 0 K/uL [facility] CenterUrinalysis macro (dipstick) panel - Qilto7795-01-00 14:01:32* Test Item Value Reference Range Interpretation Comme nts Leukocytes (test code = Leukocytes) Small Nitrite (test code = Nitrite) negative Urobilinogen (test code = Urobilinogen) .2 Protein (test code = Protein) 30 pH (test code = pH) 5.0 Blood (test code = Blood) Moderate Specific [place] (test code = Specific [place]) 1.025 Ketone (test code = Ketone) Large Bilirubin (test code = Bilirubin) Negative Glucose (test code = Glucose) Negative Appearance (test code = Appearance) Clear Color (test code = Color) Yellow [facility] gilhjqcxesoe6014-79-94 17:06:00* Test Item Value Reference Range Interpretation Comme nts HCG quantitative (test code = HCG quantitative) 8750.0 mIU/mL 0-5 H [facility] CenterUrinalysis macro (dipstick) panel - Mswoq2347-16-08 14:17:46* Test Item Value Reference Range Interpretation Comme nts Leukocytes (test code = Leukocytes) Small Nitrite (test code = Nitrite) negative Urobilinogen (test code = Urobilinogen) .2 Protein (test code = Protein) Negative pH (test code = pH) 7.0 Blood (test code = Blood) Non-Hemolyzed: Trace Specific [place] (test code = Specific [place]) 1.015 Ketone (test code = Ketone) Negative Bilirubin (test code = Bilirubin) Negative Glucose (test code = Glucose) Negative Appearance (test code = Appearance) Clear Color (test code = Color) Yellow [facility] ichghksvlouw4940-58-31 18:09:00* Test Item Value Reference Range Interpretation Comme nts HCG quantitative (test code = HCG quantitative) 1146.0 mIU/mL 0-5 H [facility] hrflloozxkzm3552-62-08 11:06:00* Test Item Value Reference Range Interpretation Comme nts HCG quantitative (test code = HCG quantitative) 466.6 mIU/mL 0-5 H [facility] CenterChoriogonadotropin.beta subunit [Units/volume] in Serum or Zfizxe7853-24-94 11:06:00* Test Item Value Reference Range Interpretation Comme nts HCG quantitative (test code = HCG quantitative) 466.6 mIU/mL 0-5 H [facility] Centerpregnancy test, fdpsw0330-87-95 09:36:27* Test Item Value Reference Range Interpretation Comme [facility] Test (test code = Test) positive [facility] CenterUrinalysis macro (dipstick) panel - Hrxco0004-36-58 08:33:52* Test Item Value Reference Range Interpretation Comme [facility] Leukocytes (test code = Leukocytes) Negative Nitrite (test code = Nitrite) negative Urobilinogen (test code = Urobilinogen) .2 Protein (test code = Protein) Negative pH (test code = pH) 6.0 Blood (test code = Blood) Non-Hemolyzed: Trace Specific [place] (test code = Specific [place]) 1.025 Ketone (test code = Ketone) Negative Bilirubin (test code = Bilirubin) Negative Glucose (test code = Glucose) Negative Appearance (test code = Appearance) Clear Color (test code = Color) Yellow [facility] CenterPOCT [id number] 16:22:00* Test Item Value Reference Range Interpretation Comme [facility] POCT PREG (test code = 1605) Negative On board controls acceptable with C Line (test code = 3574) Yes POCT PREG LOT # (test code = 3575) POCT PREG TEST DATE ( test code = 3576) Lab Interpretation (test cod e = 32609-3) Normal [facility] Urinalysis W Specific Rgjcmgg6983-29-28 16:19:00* Test Item Value Reference Range Interpretation [...] Cloudy Lab Interpretation (test cod e = 34742-4) Abnormal [facility] [id number] 19:24:00* Test Item Value Reference Range Interpretation Comme nts POCT PREG (test code = 1605) Negative On board controls acceptable with C Line (test code = 3574) Yes POCT PREG LOT # (test code = 3575) POCT PREG TEST DATE (test code = 3576) CECIL (test code = CECIL) accurate developme nt and interpretation of all internal controls Lab Interpretation (test code = 88346-4) Normal [facility] Hlvf9582-54-21 19:24:00* Test Item Value Reference Range Interpretation Comme nts POCT PREG (test code = 1605) Negative On board controls acceptable with C Line (test code = 3574) Yes POCT PREG LOT # (test code = 3575) POCT PREG TEST DATE (test code = 3576) CECIL (test code = CECIL) accurate developme nt and interpretation of all internal controls Lab Interpretation (test code = 10219-9) Normal [facility] Urinalysis W Specific Gjvlacp3489-73-38 19:20:00* Test Item Value Reference Range Interpretation [...] internal controls Lab Interpretation (test code = 80728-9) [facility] W Specific Oqymvme7649-96-47 19:20:00* Test Item Value Reference Range Interpretation [...] internal controls Lab Interpretation (test code = 58367-6) Normal [facility] ONLY - SYPHILIS IGG/[id number] 15:05:59* Test Item Value Reference Range Interpretation Comme nts Syphilis IgG/IgM (test code = 88669-6) Non-reactive Non-reactive CECIL (test code = CECIL) Non-reactive - No serologic evidence of T. pallidum infection. Cannot exclude incubating or early syphilis. Submit a second specimen in 2-4 weeks if syphilis is clinically suspected. Equivocal - Further testing to follow. Reactive - Further testing to follow. Lab Interpretation (test code = 94649-7) Normal [facility] ONLY - SYPHILIS IGG/[id number] 15:05:59* Test Item Value Reference Range Interpretation Comme nts Syphilis IgG/IgM (test code = 35549-3) Non-reactive Non-reactive CECIL (test code = CECIL) Non-reactive - No serologic evidence of T. pallidum infection. Cannot exclude incubating or early syphilis. Submit a second specimen in 2-4 weeks if syphilis is clinically suspected. Equivocal - Further testing to follow. Reactive - Further testing to follow. Lab Interpretation (test code = 90014-9) Normal [facility] ONLY - SYPHILIS IGG/[id number] 15:05:59* Test Item Value Reference Range Interpretation Comme nts Syphilis IgG/IgM (test code = 47460-9) Non-reactive Non-reactive CECIL (test code = CECIL) Non-reactive - No serologic evidence of T. pallidum infection. Cannot exclude incubating or early syphilis. Submit a second specimen in 2-4 weeks if syphilis is clinically suspected. Equivocal - Further testing to follow. Reactive - Further testing to follow. Lab Interpretation (test code = 39447-5) Normal [facility] 1/2 AG-AB WITH [id number] 06:58:27* Test Item Value Reference Range Interpretation Comme [facility] HIV Semi-quantitative (test code = 97667-1) 0.12 Negative CECIL (test code = CECIL) Non-reactive for HIV-1 antigen and HIV-1/HIV-2 antibodies. ?No laboratory evidence of HIV infection. ?Repeat in 2-4 weeks if acute HIV infection is suspected. [facility] 1/2 AG-AB WITH [id number] 06:58:27* Test Item Value Reference Range Interpretation Comme [facility] HIV Semi-quantitative (test code = 96702-1) 0.12 Negative CECIL (test code = CECIL) Non-reactive for HIV-1 antigen and HIV-1/HIV-2 antibodies. ?No laboratory evidence of HIV infection. ?Repeat in 2-4 weeks if acute HIV infection is suspected. [facility] 1/2 AG-AB WITH [id number] 06:58:27* Test Item Value Reference Range Interpretation Comme [facility] HIV Semi-quantitative (test code = 03552-7) 0.12 Negative CECIL (test code = CECIL) Non-reactive for HIV-1 antigen and HIV-1/HIV-2 antibodies. ?No laboratory evidence of HIV infection. ?Repeat in 2-4 weeks if acute HIV infection is suspected. [facility] [id number] 05:29:42* Test Item Value Reference Range Interpretation Comme nts HCV Ab (test code = 94226-1) Negative HCV Semi-Quantitative (test code = 65846-9) 0.01 [facility] [id number] 05:29:42* Test Item Value Reference Range Interpretation Comme nts HCV Ab (test code = 66145-6) Negative HCV Semi-Quantitative (test code = 61781-7) 0.01 [facility] [id number] 05:29:42* Test Item Value Reference Range Interpretation Comme nts HCV Ab (test code = 81505-7) Negative HCV Semi-Quantitative (test code = 70643-4) 0.01 [facility]IN (A1C)2023-03-01 05:25:25* Test Item Value Reference Range Interpretation Comme nts HGB A1C (test code = 4548-4) 5.3 % 4.0-5.7 CECIL (test code = CECIL) Reference RangesNormal: <5.7%Prediabetes: 5.7 - 6.4%Diabetes: > 6.5% Lab Interpretation (test code = 62216-4) Normal [facility] Center[facility]ATED H[facility]IN (A1C)2023-03-01 05:25:25* Test Item Value Reference Range Interpretation Comme nts HGB A1C (test code = 4548-4) 5.3 % 4.0-5.7 CECIL (test code = CECIL) Reference RangesNormal: <5.7%Prediabetes: 5.7 - 6.4%Diabetes: > 6.5% Lab Interpretation (test code = 92182-2) Normal [facility] (A1C)2023-03-01 05:25:25* Test Item Value Reference Range Interpretation Comme nts HGB A1C (test code = 4548-4) 5.3 % 4.0-5.7 CECIL (test code = CECIL) Reference RangesNormal: <5.7%Prediabetes: 5.7 - 6.4%Diabetes: > 6.5% Lab Interpretation (test code = 96280-7) Normal [facility] WITH [id number] 05:04:15* Test Item Value Reference Range Interpretation [...] 32.5 g/dL 31.6-35.1 RDW-SD (test code = 68094-9) 43.6 fL 39.0-49.9 RDW-CV (test code = 788-0) 12.8 % 12.0-15.5 PLT (test code = 777-3) 326 See_Comment [Automated messa ge] The system which generated this result transmitted reference range: 166 - 358 10*3/?L. The reference range was not used to interpret this result as normal/abnormal. MPV (test code = 59031-5) 10.1 fL 9.5-12.9 NRBC/100 WBC (test code = 8149226886) 0.0 See_Comment [Automated [employer] ssage] The system which generated this result transmitted reference range: 0.0 - 10.0 /100 WBCs. The reference range was not used to interpret this result as normal/abnormal. NRBC x10^3 (test code = 2883824146) See_Comment [Automated messa ge] The system which generated this result transmitted reference range: 10*3/?L. The reference range was not used to interpret this result as normal/abnormal. GRAN MAT (NEUT) % (test code = 770-8) 59.5 % IMM GRAN % (test code = 0781836142) 0.10 % LYMPH % (test code = 736-9) 31.2 % MONO % (test code = 5905-5) 5.9 % EOS % (test code = 713-8) 2.8 % BASO % (test code = 706-2) 0.5 % GRAN MAT x10^3(ANC) (test code = 1336002521) 5.43 10*3/uL 1.88-7.09 IMM GRAN x10^3 (test code = 4738769764) 0.00-0.06 LYMPH x10^3 (test code = 731-0) 2.85 10*3/uL 1.32-3.29 MONO x10^3 (test code = 742-7) 0.54 10*3/uL 0.33-0.92 EOS x10^3 (test code = 711-2) 0.26 10*3/uL 0.03-0.39 BASO x10^3 (test code = 704-7) 0.05 10*3/uL 0.01-0.07 Lab Interpretation (test code = 53867-5) Abnormal [facility] WITH [id number] 05:04:15* Test Item Value Reference Range Interpretation Comme nts WBC (test code = 6690-2) 9.14 See_Comment [Automated [employer] ge] The system which generated this result transmitted reference range: 4.30 - 11.10 10*3/?L. The reference range was not used to interpret this result as normal/abnormal. RBC (test code = 789-8) 4.95 See_Comment [Automated [employer] ge] The system which generated this result [...] 32.5 g/dL 31.6-35.1 RDW-SD (test code = 86072-6) 43.6 fL 39.0-49.9 RDW-CV (test code = 788-0) 12.8 % 12.0-15.5 PLT (test code = 777-3) 326 See_Comment [Automated messa ge] The system which generated this result transmitted reference range: 166 - 358 10*3/?L. The reference range was not used to interpret this result as normal/abnormal. MPV (test code = 71310-0) 10.1 fL 9.5-12.9 NRBC/100 WBC (test code = 6011928864) 0.0 See_Comment [Automated [employer] ssage] The system which generated this result transmitted reference range: 0.0 - 10.0 /100 WBCs. The reference range was not used to interpret this result as normal/abnormal. NRBC x10^3 (test code = 2349087059) See_Comment [Automated messa ge] The system which generated this result transmitted reference range: 10*3/?L. The reference range was not used to interpret this result as normal/abnormal. GRAN MAT (NEUT) % (test code = 770-8) 59.5 % IMM GRAN % (test code = 6604401329) 0.10 % LYMPH % (test code = 736-9) 31.2 % MONO % (test code = 5905-5) 5.9 % EOS % (test code = 713-8) 2.8 % BASO % (test code = 706-2) 0.5 % GRAN MAT x10^3(ANC) (test code = 2854640657) 5.43 10*3/uL 1.88-7.09 IMM GRAN x10^3 (test code = 7289019170) 0.00-0.06 LYMPH x10^3 (test code = 731-0) 2.85 10*3/uL 1.32-3.29 MONO x10^3 (test code = 742-7) 0.54 10*3/uL 0.33-0.92 EOS x10^3 (test code = 711-2) 0.26 10*3/uL 0.03-0.39 BASO x10^3 (test code = 704-7) 0.05 10*3/uL 0.01-0.07 Lab Interpretation (test code = 66900-8) Abnormal [facility] WITH [id number] 05:04:15* Test Item Value Reference Range Interpretation [...] 32.5 g/dL 31.6-35.1 RDW-SD (test code = 48242-0) 43.6 fL 39.0-49.9 RDW-CV (test code = 788-0) 12.8 % 12.0-15.5 PLT (test code = 777-3) 326 See_Comment [Automated messa ge] The system which generated this result transmitted reference range: 166 - 358 10*3/?L. The reference range was not used to interpret this result as normal/abnormal. MPV (test code = 89630-1) 10.1 fL 9.5-12.9 NRBC/100 WBC (test code = 3338474555) 0.0 See_Comment [Automated [employer] ssage] The system which generated this result transmitted reference range: 0.0 - 10.0 /100 WBCs. The reference range was not used to interpret this result as normal/abnormal. NRBC x10^3 (test code = 8483157557) See_Comment [Automated messa ge] The system which generated this result transmitted reference range: 10*3/?L. The reference range was not used to interpret this result as normal/abnormal. GRAN MAT (NEUT) % (test code = 770-8) 59.5 % IMM GRAN % (test code = 5508389739) 0.10 % LYMPH % (test code = 736-9) 31.2 % MONO % (test code = 5905-5) 5.9 % EOS % (test code = 713-8) 2.8 % BASO % (test code = 706-2) 0.5 % GRAN MAT x10^3(ANC) (test code = 2052877186) 5.43 10*3/uL 1.88-7.09 IMM GRAN x10^3 (test code = 9280922442) 0.00-0.06 LYMPH x10^3 (test code = 731-0) 2.85 10*3/uL 1.32-3.29 MONO x10^3 (test code = 742-7) 0.54 10*3/uL 0.33-0.92 EOS x10^3 (test code = 711-2) 0.26 10*3/uL 0.03-0.39 BASO x10^3 (test code = 704-7) 0.05 10*3/uL 0.01-0.07 Lab Interpretation (test code = 85570-6) [facility] [id number] 14:10:00 * Test Item Value Reference Range [...] used to interpret this result as normal/abnormal. [facility] 1 IgG and IgM panel - [id number] 19:14:00* Test Item Value Reference Range Interpretation Comme nts beta 2 glyco,IgG (test code = beta 2 glyco,IgG) <9 0-20 beta 2 glyco,IgA (test code = beta 2 glyco,IgA) <9 0-25 beta 2 glycoprot,IgM (test c ode = beta 2 glycoprot,IgM) <9 0-32 [facility] IgG and IgM panel - [id number] 19:14:00 * Test Item Value Reference Range Interpretation Comme nts anticardiolipin Ab IgG (test code = anticardiolipin Ab IgG) <9 0-14 anticardiolipin Ab IgM (test code = anticardiolipin Ab IgM) <9 0-12 [facility]Pap w/rfx HPV if ASCUS+leukorrhea panel [...] (test code = vance - swab) normal [facility] Center[facility]inalysis macro (dipstick) panel - [id number] 09:40:09* Test Item Value Reference Range Interpretation Comme nts Leukocytes (test code = Leukocytes) Trace Nitrite (test code = Nitrite) negative Urobilinogen (test code = Urobilinogen) .2 Protein (test code = Protein) Negative pH (test code = pH) 5.5 Blood (test code = Blood) Negative Specific [place] (test code = Specific [place]) 1.030 Ketone (test code = Ketone) Negative Bilirubin (test code = Bilirubin) Small Glucose (test code = Glucose) Negative Appearance (test code = Appearance) Cloudy Color (test code = Color) Yellow [facility] - cancer history assessment [id number] 08:33:00 * Test Item Value Reference Range Interpretation Comme nts [facility] - cancer history assessment result (test code = [facility] - cancer history assessment result) does not meet criteria [facility] CenterCT + NG + TV, DNA, urine/[id number] 00:00:00* Test Item Value Reference Range Interpretation Comme nts vance - swab (test code = vance - swab) normal gardnerella (test code = gardnerella) abnormal A CT/NG (test code = CT/NG) normal trichomonas vaginalis addon - swab (test code = trichomonas vaginalis addon - swab) normal [facility] Center[facility]inalysis macro (dipstick) panel - [id number] 14:03:06* Test Item Value Reference Range Interpretation Comme nts Leukocytes (test code = Leukocytes) Negative Nitrite (test code = Nitrite) negative Urobilinogen (test code = Urobilinogen) .2 Protein (test code = Protein) Negative pH (test code = pH) 6.0 Blood (test code = Blood) Negative Specific [place] (test code = Specific [place]) 1.030 Ketone (test code = Ketone) Negative Bilirubin (test code = Bilirubin) Negative Glucose (test code = Glucose) Negative Appearance (test code = Appearance) Clear Color (test code = Color) Yellow [facility] CenterPO[facility] [id number] 20:02:00* Test Item Value Reference Range Interpretation Comme nts POCT PREG (test code = 1605) Negative On board controls acceptable with C Line (test code = 3574) Yes POCT PREG LOT # (test code = 3575) POCT PREG TEST DATE ( test code = 3576) [facility] Notes Date/Time Note Provider Source 2024-05-16 15:57:40 Called patient, notified patient positive for UTI, BV, and Yeast. Educated patient on medications, good perineal hygiene, and increasing fluids. Pt verbalized understanding. ISA GARCIA RN 05/16/2024 3:57 PM Isa Garcia RN [facility] 2024-05-16 14:34:04 Please call patient and let her know she has UTI, BV, and vaginal yeast. All erx sent. [facility] 2024-04-09 00:17:00 [facility] ([facility] Hospitalist History Physical REPORT#:[id number] REPORT STATUS: Signed REPORT INITIALIZATION DATE:04/09/24 TIME: 16 PATIENT: DEREK GARCIA UNIT #: [id number] ROOM/BED: : 95 AGE: 28 SEX: F ATTEND: Flor Rouse MD ADM DT: AUTHOR: Rosaline Goss MD REPT SERVICE DT/TIME: 04/09/2416 * ALL edits or amendments must be made on the electronic/computer document * History of Present Illness HPI Chief complaint: Suspected ectopic HPI: 28 y/o presents as a self transported transport for evaluation of a suspected right ectopic . Patient presented to [facility] in [facility] with a positive test and RLQ pain. She had a Laparoscopic Left Salpingectomy in late January for a left ectopic . She reports that she had RLQ pain at that oskar and intermittently since then. This pain is not as severe as what she had at that time and is intermittent in nature. She is anxious to preserve her remaining fallopian tube. History Past surgical history: Reports: (Laparoscopic Left salpingectom), D C (for SAB). Alcohol use: Denies EtOH use Drug use: Denies recreational drugs Smoking status for patients 13 years old or older: Never Smoker Medication/Allergy-Vaccine Hx Allergies: Coded Allergies: codeine (Severe, HIVES 04/08/24) Pt reports no significant: past medical history Review of Systems GI: Reports: abdominal pain (RLQ). : Reports: pelvic pain, , previous pregnancies. All systems rev neg: except as marked Objective General VS/I O: Vital Signs: Date Time Temp Pulse Resp B/P B/P Pulse O2 O2 Flow FiO2 Mean Ox Delivery Rate 04/09 0019 98.1 81 16 129/67 87 100 Room air 04/08 2143 99.0 85 17 121/79 93 97 Room air 24 hour I O ending at 0700: 04/09 0700 04/08 1900 Intake Total Output Total Balance Patient 69.9 kg Weight Weight Standing scale Measurement Method PATIENT WEIGHT: Weight (lb): Weight (oz): Weight (kg): 69.900 Physical Exam General appearance: alert, awake, oriented, no acute distress, pleasant, conversational, mental status normal, no respiratory distress Cardiovascular: regular rate rhythm Respiratory: aerating well, no distress Abdomen: non-tender, normal bowel sounds, soft, no distention, no guarding, no mass/organomegaly, no rebound Results Findings/Data: Laboratory Tests 04/08 2201 Chemistry Sodium (136 - 145 mEq/L) 137 Potassium (3.4 - 4.5 mEQ/L) 3.7 Chloride (98 - 107 mEq/L) 107 Carbon Dioxide (22 - 31 mEq/L) 24 Anion Gap (10 - 20) 9.7 L BUN (8 - 23 mg/dL) 12 Creatinine (0.55 - 1.02 mg/dL) 0.8 Glomerular Filtr Rate (>60 ml/min) 102.86 Glucose (74 - 106 mg/dL) 95 Calcium (8.3 - 10.6 mg/dL) 8.9 Laboratory Tests 04/08 2201 Hematology WBC (6.5 - 12.3 K/mm3) 12.1 RBC (3.51 - 4.69 M/mm3) 4.43 Hgb (10.1 - 13.8 g/dL) 13.4 Hct (32.5 - 41.8 %) 39.9 MCV (84.6 - 96.6 fL) 90.1 MCH (27.3 - 33.9 pg) 30.2 MCHC (32.0 - 34.2 gm/dL) 33.6 RDW (12.2 - 16.3 %) 14.1 Plt Count (134 - 363 K/mm3) 284 MPV (9.2 - 12.7 fL) 9.4 Neut % (Auto) (57.9 - 77.3 %) 70.9 Lymph % (Auto) (14.5 - 29.7 %) 20.5 [place] % (Auto) (3.6 - 10.2 %) 6.7 Eos % (Auto) (0.0 - 3.0 %) 1.3 Baso % (Auto) (0.1 - 0.9 %) 0.3 Neut # (Auto) (K/mm3) 8.6 Lymph # (Auto) (K/mm3) 2.5 [place] # (Auto) (K/mm3) 0.8 Eos # (Auto) (K/mm3) 0.16 Baso # (Auto) (K/mm3) 0.0 Laboratory Tests 04/08 2201 Miscellaneous Maternal Serum HCG (mIU/mL) 2719 Laboratory Tests 04/08 2201 Urines Urine Color (YELLOW) YELLOW Urine Appearance (CLEAR) Slightly-Cloudy Urine pH (5 - 9) 5.0 Ur Specific [place] (1.001 - 1.035) 1.023 Urine Protein (NEG) NEGATIVE Urine Glucose (UA) (NEG) NEGATIVE Urine Ketones (NEG) 1+ H Urine Blood (NEG) 2+ H Urine Nitrite (NEG) NEG Urine Bilirubin (NEG) NEGATIVE Urine Urobilinogen (NEG mg/dL) 4.0 H Ur Leukocyte Esterase (NEG) NEG Urine RBC (NONE SEEN #/hpf) 0-2 Urine WBC (NONE SEEN #/hpf) 0-2 Ur Epithelial Cells (RARE - FEW #/HPF) FEW Urine Mucus (NONE SEEN) 1+ Radiology data: Recent Impressions: ULTRASOUND - DUP AB/PEL/SC/LTD 04/08 2210 Report Impression - Status: SIGNED Entered: 04/08/20242303 IMPRESSION: No intrauterine . Echogenic structure in the right adnexa measuring 2.1 x 1.3 x 1.7 cm may represent an ectopic . Thickened endometrium measures 1.7 cm with multiple nonspecific prominent vessels/vasculature within the myometrium. Impression By: Cuca Hall M.D. ULTRASOUND - US PREG UT TRANSVAGINAL 04/08 2210 Report Impression - Status: SIGNED Entered: 04/08/20242303 IMPRESSION: No intrauterine . Echogenic structure in the right adnexa measuring 2.1 x 1.3 x 1.7 cm may represent an ectopic . Thickened endometrium measures 1.7 cm with multiple nonspecific prominent vessels/vasculature within the myometrium. Impression By: Cuca Hall M.D. ULTRASOUND - US PREG EVAL 1ST TRIMTR 04/08 2210 Report Impression - Status: SIGNED Entered: 04/08/20242303 IMPRESSION: No intrauterine . Echogenic structure in the right adnexa measuring 2.1 x 1.3 x 1.7 cm may represent an ectopic . Thickened endometrium measures 1.7 cm with multiple nonspecific prominent vessels/vasculature within the myometrium. Impression By: [facility] Ebony Hall M.D. Diagnosis, Assessment Plan Problem List/A P: 1. Ectopic Free Text DxA P Notes Free Text DxA P Notes: Probable right ectopic . Options for therapy discussed, including right salpingectomy, right salpingostomy, and medical treatment with Methotrexate. Patient opts for the Methotrexate. She expresses understanding of the need for careful follow up to ensure the resolution of the ectopic , and the need to seek immediate medical attention if she experiences a sudden increase in abdominal pain. We will plan to treat with the Methotrexate. at 0028 RPT #:[id number] END OF REPORT [facility] 2024-04-08 22:01:00 [facility] ([facility]) EMERGENCY PROVIDER REPORT REPORT#:[id number] REPORT STATUS: Signed DATE:04/08/24 TIME: 2200 PATIENT: DEREK GARCIA UNIT #: [id number] ROOM/BED: AGE: 28 SEX: F PCP PHYS: Lyndon Billings MD SERVICE AUTHOR: Flor Rouse MD * ALL edits or amendments must be made on the electronic/computer document * HPI-Abd Pain F Under 40 General Initial Greet Date/Time 04/08/242147 Presentation Chief Complaint Abdominal pain, , 1st trimester Hx Obtained From Patient Onset Occurred One week ago Symptom Duration Since onset Location RLQ Quality Painful Radiation No: Does not radiate. Pain/Sev: Current Pain level 6 out of 10 Associated with Reports: Vaginal bleeding. Denies: Anorexia, Back pain, Chest pain, Chills, Constipation, Diarrhea, Dysuria, Fever, Hematemesis, Hematochezia, Hematuria, Melena, Nausea, Shortness of breath, Urinary frequency, Urinary retention, Urinary tract symptoms, Vaginal discharge, Vomiting. Free Text HPI Notes Free Text HPI Notes Patient is a G6, P0 who transferred from [facility] due to concerns of ectopic . The patient states that 1 month ago she had her left fallopian tube removed due to ectopic . This time her symptoms started 1 week ago and she took a test today due to breast tenderness and spotting. She is hoping we caught the ectopic early enough because she does not want to lose her right fallopian tube. Risk-Abd Pain F Under 40 )( Ectopic Risk factors reviewed Review of Systems ROS Statements All systems rev neg except as marked. Past Medical History - Adult Stated Complaint ECTOPIC Allergies Coded Allergies: codeine (Severe, HIVES 04/08/24) Pt reports no significant: Past medical history, Past surgical history, Family history, Social history Smoking status for patients 13 years old or older: Never Smoker Physical Exam Vital Signs Vital Signs First Documented: Result Date Time Pulse Ox 97 04/08 2143 B/P 121/79 04/08 2143 B/P Mean 93 04/08 2143 O2 Delivery Room air 04/08 2143 Temp 99.0 04/08 2143 Pulse 85 04/08 2143 Resp 17 04/08 2143 Last Documented: Result Date Time Pulse Ox 98 04/09 0118 B/P 123/70 04/09 0118 B/P Mean 87 04/09 011 O2 Delivery Room air 04/09 118 Temp 98.0 04/09 011 Pulse 79 04/09 0118 Resp 16 04/09 0118 Review of Vital Signs Reviewed Focused PE General/Const General/Const Awake, Alert, Well appearing MS Head Head Normocephalic Eyes Eyes PERRL Ears/Nose/Throat Ears/Nose/Throat Airway patent, Mucous membranes moist, Pharynx NL Resp/Chest Respiratory/Chest Breath sounds NL, Breath sounds = bilat, No respiratory distress, No rales, No rhonchi, No wheezing Cardiovascular Cardiovascular Heart rate NL, Regular rhythm, Heart sounds NL, Peripheral circulation NL Abdomen/GI Abdomen/GI Soft, Non-tender, McBurney's non-tender, No guarding, No rebound, BS normoactive, No distention, No hernia, No palpable mass MS Back Back Inspection NL, Non-tender, No CVA tenderness Skin Skin Color NL, Warm, Dry, Turgor NL Neurologic Neurologic Oriented X3, Speech NL, No motor deficits, No sensory deficits Interpretation Diagnostics Lab Results Interpretation Results Laboratory Tests 04/08/242200: [Embedded Image Not Available] Laboratory Tests: 04/08 2201 Chemistry Sodium (136 - 145 mEq/L) 137 Potassium (3.4 - 4.5 mEQ/L) 3.7 Chloride (98 - 107 mEq/L) 107 Carbon Dioxide (22 - 31 mEq/L) 24 Anion Gap (10 - 20) 9.7 L BUN (8 - 23 mg/dL) 12 Creatinine (0.55 - 1.02 mg/dL) 0.8 Glomerular Filtr Rate (>60 ml/min) 102.86 Glucose (74 - 106 mg/dL) 95 Calcium (8.3 - 10.6 mg/dL) 8.9 Hematology WBC (6.5 - 12.3 K/mm3) 12.1 RBC (3.51 - 4.69 M/mm3) 4.43 Hgb (10.1 - 13.8 g/dL) 13.4 Hct (32.5 - 41.8 %) 39.9 MCV (84.6 - 96.6 fL) 90.1 MCH (27.3 - 33.9 pg) 30.2 MCHC (32.0 - 34.2 gm/dL) 33.6 RDW (12.2 - 16.3 %) 14.1 Plt Count (134 - 363 K/mm3) 284 MPV (9.2 - 12.7 fL) 9.4 Neut % (Auto) (57.9 - 77.3 %) 70.9 Lymph % (Auto) (14.5 - 29.7 %) 20.5 [place] % (Auto) (3.6 - 10.2 %) 6.7 Eos % (Auto) (0.0 - 3.0 %) 1.3 Baso % (Auto) (0.1 - 0.9 %) 0.3 Neut # (Auto) (K/mm3) 8.6 Lymph # (Auto) (K/mm3) 2.5 [place] # (Auto) (K/mm3) 0.8 Eos # (Auto) (K/mm3) 0.16 Baso # (Auto) (K/mm3) 0.0 Miscellaneous Maternal Serum HCG (mIU/mL) 2719 Urines Urine Color (YELLOW) YELLOW Urine Appearance (CLEAR) Slightly-Cloudy Urine pH (5 - 9) 5.0 Ur Specific [place] (1.001 - 1.035) 1.023 Urine Protein (NEG) NEGATIVE Urine Glucose (UA) (NEG) NEGATIVE Urine Ketones (NEG) 1+ H Urine Blood (NEG) 2+ H Urine Nitrite (NEG) NEG Urine Bilirubin (NEG) NEGATIVE Urine Urobilinogen (NEG mg/dL) 4.0 H Ur Leukocyte Esterase (NEG) NEG Urine RBC (NONE SEEN #/hpf) 0-2 Urine WBC (NONE SEEN #/hpf) 0-2 Ur Epithelial Cells (RARE - FEW #/HPF) FEW Urine Mucus (NONE SEEN) 1+ Recent Impressions: ULTRASOUND - DUP AB/PEL/SC/LTD 04/08 2210 Report Impression - Status: SIGNED Entered: 04/08/20242303 IMPRESSION: No intrauterine . Echogenic structure in the right adnexa measuring 2.1 x 1.3 x 1.7 cm may represent an ectopic . Thickened endometrium measures 1.7 cm with multiple nonspecific prominent vessels/vasculature within the myometrium. Impression By: Cuca Hall M.D. ULTRASOUND - US PREG UT TRANSVAGINAL 04/08 2210 Report Impression - Status: SIGNED Entered: 04/08/20242303 IMPRESSION: No intrauterine . Echogenic structure in the right adnexa measuring 2.1 x 1.3 x 1.7 cm may represent an ectopic . Thickened endometrium measures 1.7 cm with multiple nonspecific prominent vessels/vasculature within the myometrium. Impression By: Cuca Hall M.D. ULTRASOUND - US PREG EVAL 1ST TRIMTR 04/08 2210 Report Impression - Status: SIGNED Entered: 04/08/20242303 IMPRESSION: No intrauterine . Echogenic structure in the right adnexa measuring 2.1 x 1.3 x 1.7 cm may represent an ectopic . Thickened endometrium measures 1.7 cm with multiple nonspecific prominent vessels/vasculature within the myometrium. Impression By: Cuca Hall M.D. Lab Imaging Statement Laboratory radiographic studies reviewed and considered in the medical decision-making. Point of Care Testing Pulse Oximetry Pulse Ox % 97 On: Room air Interpretation Interpreted by la Time 2142 Re-Evaluation MDM )( Re-Evaluation/Progress #1 Text/Dict Note discussed results with patient her lab and ultrasound. Explained to patient that Dr. Goss who is the OB hospitalist will come and speak to her about her options. She voiced understanding of the plan Time of Re-Eval 2354 )( Re-Eval Status Unchanged ED Course Medication(s) Ordered Medication(s) Ordered: Antineoplastic Agents Sig/Anne Start time Last Medication Dose Route Stop Time Status Admin Methotrexate Sodium 43.75 MG X1ED STA 04/09 0024 DC 04/09 IM 04/09 0025 0104 Methotrexate Sodium 43.75 MG X1ED STA 04/09 0024 DC 04/09 IM 04/09 0025 0104 Methotrexate Sodium 87.5 MG X1ED STA 04/09 0016 DC Device 1 EA IM 04/09 0345 Consultation Consultation Referral/Consult Name Rosaline Goss MD [employer] Called [employer] Discussed with service consultant Requested Call Time 2349 Requested Call Date 04/08/24 Call Returned Call returned Call Returned Time 2349 Call Returned Date 04/08/24 Differential Diagnosis )( Differential Diagnosis Acute abdominal pain, Cholecystitis, Cholelithiasis, Constipation, Ectopic preg ruptured, Ectopic , Endometriosis, Foreign body, Intrauterine , Ovarian cyst, Ovarian torsion Patient Discharge Departure Vital Signs/Condition Vital Signs First Documented: Result Date Time Pulse Ox 97 04/08 2143 B/P 121/79 04/08 2143 B/P Mean 93 04/08 2143 O2 Delivery Room air 04/08 2143 Temp 99.0 04/08 2143 Pulse 85 04/08 214 Resp 17 04/08 2143 Last Documented: Result Date Time Pulse Ox 98 04/09 0118 B/P 123/70 04/09 0118 B/P Mean 87 04/09 0118 O2 Delivery Room air 04/09 118 Temp 98.0 04/09 0118 Pulse 79 04/09 0118 Resp 16 04/09 0118 All vital signs available at the time of this entry have been reviewed. Condition Stable Clinical Impression Clinical Impression Primary Impression: Ectopic Disposition Decision Discharge )( Discharged to Home Yes )( Time 011 )( Date 04/09/24 Discharge/Care Plan Counseled Regarding Diagnosis, Lab results, Imaging studies, Prescriptions, Need for follow-up, When to return to ED (Auto) Prescriptions Current Visit Scripts ONDANSETRON (ZOFRAN) 4 MG PO Q6H PRN PRN NAUSEA/VOMITING ONDANSETRON (ZOFRAN) 4 MG PO Q6H PRN PRN NAUSEA/VOMITING #15 TABS Patient Instructions ED Ectopic Preg Methotrexate Additional Instructions Please follow-up with your OB to have your hCG levels checked after methotrexate Departure Forms WORK/SCHOOL EXCUSE VARIABLE Any Restrictions Off work/school 3 days Discharge Note I have spoken with the patient and/or caregivers. I have explained the patient's condition, diagnoses and treatment plan based on the information available to me at this time. I have answered the patient's and/or caregiver's questions and addressed any concerns. The patient and/or caregivers have as good an understanding of the patient's diagnosis, condition and treatment plan as can be expected at this point. The vital signs have been stable. The patient's condition is stable and appropriate for discharge from the emergency department. The patient will pursue further outpatient evaluation with the primary care physician or other designated or consulting physician as outlined in the discharge instructions. The patient and/or caregivers are agreeable to this plan of care and follow-up instructions have been explained in detail. The patient and/or caregivers have received these instructions in written format and have expressed an understanding of the discharge instructions. The patient and/or caregivers are aware that any significant change in condition or worsening of symptoms should prompt an immediate return to this or the closest emergency department or a call to 911. at 0523 [facility] #:[id number] END OF REPORT [facility] 2023-10-24 13:00:00 Addended by: RADHA JAMES on: 10/25/2023 03:51 PM Modules accepted: Orders [facility]
[2024-12-03 20:54] LABS: Specific Gravity 1.019 (1.005-1.030)
[2024-12-03 20:55] LABS: Specific Gravity 1.019 (1.005-1.030); Sqamous Epithelial <5 /HPF (None Seen); Urine Bacteria <20 /HPF (<20); Urine Bilirubin NEGATIVE (Negative); Urine Blood Negative (Negative); Urine Clarity Clear (Clear); Urine Color Light-Yellow (Yellow); Urine Culture Reflex Order NOT NEEDED; Urine Glucose NEGATIVE (Negative); Urine Ketones NEGATIVE (Negative); Urine Microscopic Reflex YN ORDER UMIC; Urine Mucus Slight /HPF (None Seen); Urine Nitrite NEGATIVE (Negative); Urine Protein NEGATIVE (Negative); Urine RBC <5 /HPF (None Seen); Urine Urobilinogen Normal (Normal); Urine WBC <5 /HPF (<5); Urine Yeast (Budding) Trace /HPF (None Seen)
--- NOTE | 2024-12-03 21:11 | RAD REPORT ---
EXAMINATION: Transvaginal OB COMPARISON: None. HISTORY: ABD CRAMPING, TECHNIQUE: Real-time ultrasound was performed through the pelvis. A transvaginal scan was performed t o better visualize the intrauterine contents and adnexa. FINDINGS: There is a single living intrauterine . Cardiac activity measured 97 BPM. There is no visible subchorionic hemorrhage. Both ovaries are visualized and appear unremarkable. There is no free fluid in the cul-de-sac. Measurements and Calculations: [place] rump length 3 mm, consistent with a sonographic age of 5 weeks, 5 days. Estimated date of deli very is 07/29/2025 IMPRESSION: Single living intrauterine , with a composite sonographic age of 5 weeks, 5 days.
--- NOTE | 2024-12-03 21:57 | ER ---
Nurse's Notes [facility] Name: Beena Garcia Age: 29 yrs Sex: Female : 1995 Arrival Date: 12/03/2024 Time: 20:16 Bed IW10 Private MD: Diagnosis: Presentation: 12/03 20:40 Chief complaint: Patient states: 6 weeks , A7 with 2 ectopics. Spotting x 1 me1 hour with some cramping. Coronavirus screen: Vaccine status: Patient reports receiving the 2nd dose of the covid vaccine. Ebola Screen: No symptoms or risks identified at this time. Initial Sepsis Screen: Does the patient meet any 2 criteria? No. Patient's initial sepsis screen is negative. Does the patient have a suspected source of infection? No. Patient's initial sepsis screen is negative. Risk Assessment: Do you want to hurt yourself or someone else? Patient reports no desire to harm self or others. Onset of symptoms was December 03, 2024 at 19:30. 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 - Infectious Disease History:: Denies. - Social history:: Smoking status: Patient denies any tobacco usage or history of. Assessment: 21:55 General: Patient eloped. Informed registration that she was leaving.. me1 Vital Signs: 20:40 BP 115 / 71; Pulse 80; Resp 16; Temp 98.1; Pulse Ox 100% ; Weight 74.39 kg; Height 5 me1 ft. 1 in. ; Pain 4/10; 20:40 Body Mass Index 30.99 (74.39 kg, 154.94 cm) me1 20:40 Pain Scale: Adult va1 ED Course: 20:19 Patient arrived in ED. im 20:27 [facility] kb 20:27 Richard Cedeno MD is Attending Physician. kb 20:41 Triage completed. me1 20:41 Arm band placed on Patient placed in waiting room. me1 20:44 Test, Urine Sent. me1 20:44 Urinalysis w/ reflexes Sent. me1 20:44 Urine collected: clean catch specimen, cloudy. me1 20:58 US Transvaginal Ob In Process Unspecified. EDMS Administered Medications: No medications were administered Outcome: 21:56 Eloped from waiting room, after seeing physician me1 21:56 unknown 21:56 Patient left the ED. me1 Signatures: Dispatcher [employer] EDMS Ivonne Thompson, PLANING MACHINE OPERATOR-C PLANING MACHINE OPERATOR-Annette Pak Michelle, RN RN me1
[2024-12-03 22:00] VITALS: BP 115/71; TEMP 98.1; O2SAT 100
--- NOTE | 2024-12-04 21:57 | EDPHYS ---
Physician Documentation [facility] Name: Beena Garcia Age: 29 yrs Sex: Female : 1995 Arrival Date: 12/03/2024 Time: 20:16 Bed IW10 Private MD: ED Physician Richard Cedeno HPI: 12/03 22:07 This 29 yrs old Female presents to ER via Ambulatory with complaints of kb Vaginal Bleeding, + Preg <12wks. 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 kb A7. Reports 2 ectopic pregnancies in the past. Reports cramping that has been ongoing since she found out she was last week. States she doesn't see her OB for 2 more weeks so she came for evaluation due to her history of miscarriage. . 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 - Infectious Disease History:: Denies. - Social history:: Smoking status: Patient denies any tobacco usage or history of. ROS: 22:07 Constitutional: As per HPI kb Exam: 22:07 Constitutional: This is a well developed, well nourished patient who is awake, alert, kb and in no acute distress. Head/Face: Normocephalic, atraumatic. ENT: Moist Mucous membranes Cardiovascular: Regular rate Respiratory: Respirations even and unlabored. No increased work of breathing. Talking in full sentences Skin: Warm, dry with normal turgor. Normal color. MS/ Extremity: Pulses equal, no cyanosis. Neurovascular intact. Full, normal range of motion. Neuro: Awake and alert, GCS 15, oriented to person, place, time, and situation. 22:07 Abdomen/GI: Inspection: abdomen appears normal, Bowel sounds: normal, Palpation: soft, in all quadrants, mild abdominal tenderness, in the right lower quadrant, Vital Signs: 20:40 BP 115 / 71; Pulse 80; Resp 16; Temp 98.1; Pulse Ox 100% ; Weight 74.39 kg; Height 5 me1 ft. 1 in. ; Pain 4/10; 20:40 Body Mass Index 30.99 (74.39 kg, 154.94 cm) me1 20:40 Pain Scale: Adult me1 MDM: 20:27 Medical Screening Exam initiated kb 22:10 Differential diagnosis: threatened Ab, inevitable Ab, complete Ab. Data reviewed: vital kb signs, nurses notes. ED course: Pt elected to leave from lobby prior to completion of medical screening exam. I was not notified of pt's intent to leave. I tried to contact her via phone, but number on file does not work. . 12/03 20:27 Order name: Test, Urine; Complete Time: 20:57 kb 12/03 20:27 Order name: Urinalysis w/ reflexes; Complete Time: 20:57 kb 12/03 20:27 Order name: US Transvaginal Ob; Complete Time: 21:16 kb 12/03 20:27 Order name: IV Saline Lock kb 12/03 20:27 Order name: Labs collected and sent kb 12/03 20:27 Order name: NPO kb Administered Medications: No medications were administered Disposition: 22:11 Chart complete. kb 12/04 20:20 Co-signature as Attending Physician, Richard Cedeno MD I agree with the assessment sp4 and plan of care. I reviewed the patient's care provided by Advanced Practice Provider \T\ agree w/ the diagnosis \T\ care plan. I personally saw the pt \T\ performed a substantive portion of the visit, incldng all aspects of the (History/Exam/Medical Decision Making). Disposition Summary: 12/03/24 21:56 Eloped Notes: Disposition: after being seen by provider me1 Reason: (see nurse's notes) me1 Signatures: Dispatcher [employer] Ivonne James, Richard Mera MD MD sp4 Lori Greenwood, MISHA RN me1
== END 2024-12-03 21:56 | disposition left against medical advice (07) ==
LOC: ER 20:16
DX: O26.851 Spotting complicating pregnancy, first trimester (principal); Z3A.01 Less than 8 weeks gestation of pregnancy
CPT/HCPCS: 76817; 81001; 81025

== ENCOUNTER 2024-12-05 18:51 | Emergency (ER) | payer OTHER ==
--- OUTSIDE RECORDS SUMMARY | 2024-12-05 18:56 | XMS REPORT | Continuity of Care Document ---
Author Name Unknown Address [address] [facility]. [address] [id number] [facility] Address [address] [facility] [address] [place] [address] Care Team Providers Care Lighting Adviser Name Role Phone Stephanie Parisi Primary Care Physicia n ALTAGRACIA WHITLEY Attending Clinician Unavailable ALTAGRACIA WHITLEY Attending Clinician Unavailable STEPHANIE HICKS Attending Clinician Unavail able MARCUS MCKEON Attending Clinician Unavail able MARCUS MCKEON Attending Clinician Unavail able Marcus Mckeon MD Attending Clinician [phone] ENA DALTON Attending Clinician Unavaila Shelby Tavarez Attending Clinician [phone] SHELBY MERCER Attending Clinician Unavailable Stephanie Parisi Attending Clinician + Ena Dalton CNM Attending Clinician [phone] Stephanie Parisi Attending Clinician + Flor Rouse Attending Clinician Unavailable ELISE HERNANDEZ Attending Clinician Unavailyarelis Blunt Attending Clinician Unavailable JANE TITUS Attending Clinician Unavailable UNKNOWN, ATTENDING Attending Clinician Unavailab RADHA Dave Attending Clinician Unavailable Radha James PA-C Attending Clinician [phone] Unknown, Attending Attending Clinician Unavailab le Doctor Unassigned, [place] Attending Clinician U IVY Pabon Attending Clinician VELIA Bhandari Attending Clinician Unavailable RICHARD AMAYA Attending Clinician UnavailKARLA Ivory Attending Clinician Frances ramsay Lab, Ang-Rmchp Attending Clinician Unavailable Ida Marroquin Attending Clinician [phone] Richard Machuca Attending Clinician Pardeep Najera DO Attending Clinician [phone] IDA VARELA Attending Clinician Lyndon Martell Admitting Clinician Unavailab St Admitting Clinician Unavailable Payers Payer Name Policy Type Policy Number Effective Date Expirati on Date Source [place] [employer] [id number] 2022 00:00:00 [facility] [id number] 2023 00:00:00 [facility] (MEDICAID HMO) [id number] 2016 00:00:00 MEDICAID PENDING PENDING 2021 00:00:00 [facility] [id number] 2017 00:00:00 Problems Condition Name Condition Details Condition Category Status Onset Date Resolution Date Last Treatment Date Treating Clinician Comments Source Encounter for other contracept rishi management Encounter for other contracept rishi management Disease Active 05-13 00:00: 00 [facility] Over weight Over weight Disease Active 05-13 00:00: 00 [facility] of left fallopian tube of Left Fallopian Tube Problem Active - 00:00: 00 [facility] 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 2016 Negative PAP [id number] Negative PAP +[id number] Negative PAP +HPV, negative [id number] Negative PAP and [id number] Negative PAP and [id number] pending [facility] Other general counseling and advice for contracept rishi management Other general counseling and advice for contracept rishi management Disease Resolve d - 00:00: 00 2024-05-13 00:00:00 2024-05-13 13:17:52 [facility] Over weight Over weight Disease Resolve d 2016-10 2- 00:00: 00 2024-05-13 00:00:00 2024-05-13 13:17:50 [facility] Cyst of right ovary Cyst of right ovary Disease Resolve d 04-13 00:00: 00 2023-03-03 00:00:00 2023-03-03 12:56:01 [facility] Susceptibl e to varicella (non-immun e), currently Susceptibl e to varicella (non-immun e), currently Disease Resolve d 6 00:00: 00 2022-03-31 00:00:00 2022-03-31 16:16:07 [facility] Rubella non-immune status, antepartum Rubella non-immune status, antepartum Disease Resolve d 03-23 00:00: 00 2022-03-31 00:00:00 2022-03-31 16:16:09 [facility] Supervisio n of high-risk Supervisio n of high-risk Disease Resolve d 6- 00:00: 00 2022-03-31 00:00:00 2022-03-31 16:16:10 [facility] History of miscarriag e History of miscarriag e Disease Resolve d 6- 00:00: 00 2022-03-31 00:00:00 2022-03-31 16:16:11 [facility] Vaginal bleeding in Vaginal bleeding in Disease Resolve d 6- 00:00: 00 2022-03-31 00:00:00 2022-03-31 16:16:05 [facility] Dysuria Dysuria Disease Resolve d 5-05 00:00: 00 2021-03-22 00:00:00 2021-03-22 16:30:58 [facility] Maternal varicella, non-immune Maternal varicella, non-immune Disease Resolve d 3-23 00:00: 00 2021-03-22 00:00:00 2021-03-22 16:31:00 [facility] Screening examinatio n for STD (sexually transmitte d disease) Screening examinatio n for STD (sexually transmitte d disease) Disease Resolve d 3-16 00:00: 00 2021-03-22 00:00:00 2021-03-22 16:31:03 [facility] UTI symptoms UTI symptoms Disease Resolve d 3-16 00:00: 00 2021-03-22 00:00:00 2021-03-22 16:31:05 [facility] Contracept rishi management Contracept rishi management Disease Resolve d 2016-10 00:00: 00 2021-03-22 00:00:00 2021-03-22 16:30:57 [facility] Miscarriag e Miscarriag e Disease Resolve d - 00:00: 00 2017-09-21 00:00:00 2017-09-21 14:05:51 [facility] Other general counseling and advice for contracept rishi management Other general counseling and advice for contracept rishi management Disease Resolve d - 00:00: 00 2017-09-21 00:00:00 2017-09-21 14:05:51 [facility] Missed Missed Disease Resolve d 2015-10 2-19 00:00: 00 2017-09-21 00:00:00 2017-09-21 14:05:50 [facility] Rubella non-immune status, antepartum Rubella non-immune status, antepartum Disease Resolve d 2015-10 1-17 00:00: 00 2017-09-21 00:00:00 2017-09-21 14:05:49 [facility] Supervisio n of high risk , antepartum Supervisio n of high risk , antepartum Disease Resolve d 2015-10 00:00: 00 2017-09-21 00:00:00 2017-09-21 14:05:47 [facility] Flu vaccine need Flu vaccine need Disease Resolve d 2015-10 00:00: 00 2017-09-21 00:00:00 2022-05-07 00:43:11 [facility] Surveillan ce of previously prescribed contracept rishi pill Surveillan ce of previously prescribed contracept rishi pill Disease Resolve d 03-30 00:00: 00 2016-09-06 00:00:00 2016-09-06 11:18:49 [facility] Allergies, Adverse Reactions, Alerts Allergy Name Allergy Type Status Severity Reaction(s) Onset Date Inactive Date Treating Clinician Comments Source codeine DA Active SV HIVES 04-08 00:00: 00 [facility] Codeine Propensi ty to adverse reaction s Active Hives 02-27 00:00: 00 [facility] CODEINE DRUG INGREDI Active Hives 02-27 00:00: 00 [facility] Codeine Allergy to substanc e Active [facility] Social History Social Habit Start Date Stop Date Quantity Comments Source ASSERTION [facility] Alcoholic beverage intake 2024-11-19 00:00:00 2024-11-19 00:00:00 Current drinker of alcohol (finding) [facility] History of Social function 2024-05-13 00:00:00 2024-05-13 00:00:00 [facility] Alcohol intake 2023-11-13 00:00:00 2023-11-13 00:00:00 Current drinker of alcohol (finding) [facility] Exposure to SARS-CoV-2 (event) 2023-02-18 00:00:00 2023-02-28 06:11:00 Not sure [facility] Alcohol Comment 2023-02-28 00:00:00 2023-02-28 00:00:00 social [facility] Tobacco use and exposure 2022-06-21 00:00:00 2022-06-21 00:00:00 Smokeless tobacco non-user [facility] Sex assigned at 1995 00:00:00 1995 00:00:00 [facility] Smoking Status Start Date Stop Date Source Never smoked tobacco [facility] Medications Ordered Medication Name Filled Medication Name Start Date Stop Date Current Medication? Ordering Clinician Indication Dosage Frequency Signature (SIG) Comments Components Source metroNIDAZO LE 500 mg tablet 11-19 00:00: 00 Yes [id number] 500mg Take 1 tablet by mouth every 12 (twelve) hours. [facility] fluconazole 150 mg tablet 11-18 00:00: 00 Yes [id number] 150mg Take 1 tablet by mouth every 3 (three) days. [facility] norgestimat e-ethinyl estradioL (ORTHO TRI-CYCLEN, 28,) 0.18/0.215/ 0.25 mg-35 mcg (28) tablet 2023-10 00:00: 00 Yes [id number] 1{tbl} Take 1 tablet by mouth in the morning. [facility] Nitrofurant oin&Nit. Macrocryst (MACROBID) 100 mg capsule 05-16 00:00: 00 05-27 04:59 :00 No [id number] 100mg Take 1 capsule by mouth in the morning and 1 capsule in the evening. Do all this for 10 days. [facility] metroNIDAZO LE 500 mg tablet 05-15 00:00: 00 05-23 04:59 :00 No [id number] 500mg Take 1 tablet by mouth in the morning and 1 tablet in the evening. Do all this for 7 days. [facility] fluconazole (DIFLUCAN) 150 mg tablet 05-15 00:00: 00 05-16 04:59 :00 No [id number] 150mg Take 1 tablet by mouth once now for 1 dose. [facility] phentermine HCl (PHENTERMIN E ORAL) 05-13 12:58: 39 Yes Take by mouth. [facility] norgestimat e-ethinyl estradioL (ORTHO TRI-CYCLEN, 28,) 0.18/0.215/ 0.25 mg-35 mcg (28) tablet - 00:00: 00 09-15 00:00 :00 No [id number] 1{tbl} Take 1 tablet by mouth in the morning. [facility] cefdinir 300 mg capsule 3-22 00:00: 00 05-13 00:00 :00 No [id number] 300mg Take 1 capsule by mouth every 12 (twelve) hours. [facility] fluconazole (DIFLUCAN) 150 mg tablet 1-04 00:00: 00 05-13 00:00 :00 No [id number] 150mg Take 1 tablet by mouth every 72 (seventy-t wo) hours. [facility] Nitrofurant oin&Nit. Macrocryst (MACROBID) 100 mg capsule 1-03 00:00: 00 05-13 00:00 :00 No [id number] 100mg Take 1 capsule by mouth in the morning and 1 capsule in the evening. [facility] fluconazole (DIFLUCAN) 150 mg tablet 03-02 00:00: 00 03-03 04:59 :00 No [id number] 150mg Take 1 tablet by mouth once now for 1 dose. Take second tablet in 1 week [facility] phentermine HCl (PHENTERMIN E ORAL) 02-28 08:20: 44 Yes Take by mouth. [facility] norgestimat e-ethinyl estradioL (ORTHO TRI-CYCLEN, 28,) 0.18/0.215/ 0.25 mg-35 mcg (28) tablet 9-16 00:00: 00 02-28 00:00 :00 No [id number] 1{tbl} Take 1 tablet by mouth in the morning. [facility] Nitrofurant oin&Nit. Macrocryst (MACROBID) 100 mg capsule 6-13 00:00: 00 02-28 00:00 :00 No [id number] 100mg Take 1 capsule by mouth 2 (two) times daily. [facility] PNV 67-iron ps-folate no.1-dha (VITAFOL ULTRA) 29 mg iron- 1 mg-200 mg Cap 6- 00:00: 00 10-28 00:00 :00 No [id number] 1{each} Take 1 Each by mouth daily. [facility] norgestimat e-ethinyl estradioL 0.18/0.215/ 0.25 mg-25 mcg tablet 5-05 00:00: 00 10-28 00:00 :00 No [id number] 1{tbl} Take 1 tablet by mouth daily. [facility] ibuprofen 800 mg tablet Take 1 tablet every 6 hours by oral route as needed. ibuprofen 800 mg tablet Take 1 tablet every 6 hours by oral route as needed. No 1 Q6H ibuprofen 800 mg tablet Take 1 tablet every 6 hours by oral route as needed. [facility] Diflucan 100 mg tablet Take 1 tablet every day by oral route for 3 days. Diflucan 100 mg tablet Take 1 tablet every day by oral route for 3 days. No 1 Q1D Diflucan 100 mg tablet Take 1 tablet every day by oral route for 3 days. [facility] Immunizations Ordered Immunization Name Filled Immunization Name Date Status Comments Source HPV9 2019-09-10 00:00:00 Completed [facility] HPV9 2019-09-10 00:00:00 Completed [facility] HPV9 2019-09-10 00:00:00 Completed [facility] HPV9 2019-09-10 00:00:00 Completed [facility] HPV9 2019-09-10 00:00:00 Completed [facility] HPV9 2019-09-10 00:00:00 Completed [facility] HPV9 2019-09-10 00:00:00 Completed [facility] HPV9 2019-06-17 00:00:00 Completed [facility] HPV9 2019-06-17 00:00:00 Completed [facility] HPV9 2019-06-17 00:00:00 Completed [facility] HPV9 2019-06-17 00:00:00 Completed [facility] HPV9 2019-06-17 00:00:00 Completed [facility] HPV9 2019-06-17 00:00:00 Completed [facility] HPV9 2019-06-17 00:00:00 Completed [facility] Influenza Virus Vaccine Quad IM 3+ YRS 2016-09-06 00:00:00 Completed Influenza Virus Vaccine Quad IM 3+ YRS 2016-09-06 00:00:00 Completed [facility] Influenza Virus Vaccine Quad IM 3+ YRS 2016-09-06 00:00:00 Completed [facility] Influenza Virus Vaccine Quad IM 3+ YRS 2016-09-06 00:00:00 Completed [facility] Influenza Virus Vaccine Quad IM 3+ YRS 2016-09-06 00:00:00 Completed [facility] Influenza Virus Vaccine Quad IM 3+ YRS 2016-09-06 00:00:00 Completed [facility] Influenza Virus Vaccine Quad IM 3+ YRS 2016-09-06 00:00:00 Completed [facility] TDAP 2009-10-22 00:00:00 Completed [facility] TDAP 2009-10-22 00:00:00 Completed [facility] TDAP 2009-10-22 00:00:00 Completed [facility] TDAP 2009-10-22 00:00:00 Completed [facility] TDAP 2009-10-22 00:00:00 Completed [facility] TDAP 2009-10-22 00:00:00 Completed [facility] TDAP 2009-10-22 00:00:00 Completed [facility] HPV9 Unknown Completed [facility] TDAP Unknown Completed [facility] Influenza Virus Vaccine Quad IM 3+ YRS Unknown Completed [facility] HPV9 Unknown Completed [facility] TDAP Unknown Completed [facility] Influenza Virus Vaccine Quad IM 3+ YRS Unknown Completed [facility] HPV9 Unknown Completed [facility] TDAP Unknown Completed [facility] Influenza Virus Vaccine Quad IM 3+ YRS Unknown Completed [facility] HPV9 Unknown Completed [facility] TDAP Unknown Completed [facility] Influenza Virus Vaccine Quad IM 3+ YRS Unknown Completed [facility] HPV9 Unknown Completed [facility] TDAP Unknown Completed [facility] Influenza Virus Vaccine Quad IM 3+ YRS Unknown Completed [facility] HPV9 Unknown Completed [facility] TDAP Unknown Completed [facility] Influenza Virus Vaccine Quad IM 3+ YRS Unknown Completed [facility] HPV9 Unknown Completed [facility] TDAP Unknown Completed [facility] Influenza Virus Vaccine Quad IM 3+ YRS Unknown Completed [facility] HPV9 Unknown Completed [facility] TDAP Unknown Completed [facility] Influenza Virus Vaccine Quad IM 3+ YRS Unknown Completed [facility] HPV9 Unknown Completed [facility] TDAP Unknown Completed [facility] Influenza Virus Vaccine Quad IM 3+ YRS Unknown Completed [facility] HPV9 Unknown Completed [facility] TDAP Unknown Completed [facility] Influenza Virus Vaccine Quad IM 3+ YRS Unknown Completed [facility] HPV9 Unknown Completed [facility] TDAP Unknown Completed [facility] Influenza Virus Vaccine Quad IM 3+ YRS Unknown Completed [facility] HPV9 Unknown Completed [facility] TDAP Unknown Completed [facility] Influenza Virus Vaccine Quad IM 3+ YRS Unknown Completed [facility] HPV9 Unknown Completed [facility] TDAP Unknown Completed [facility] Influenza Virus Vaccine Quad IM 3+ YRS Unknown Completed [facility] HPV9 Unknown Completed [facility] TDAP Unknown Completed [facility] Influenza Virus Vaccine Quad IM 3+ YRS Unknown Completed [facility] HPV9 Unknown Completed [facility] TDAP Unknown Completed [facility] Influenza Virus Vaccine Quad IM 3+ YRS Unknown Completed [facility] HPV9 Unknown Completed [facility] TDAP Unknown Completed [facility] Influenza Virus Vaccine Quad IM 3+ YRS Unknown Completed [facility] HPV9 Unknown Completed [facility] TDAP Unknown Completed [facility] Influenza Virus Vaccine Quad IM 3+ YRS Unknown Completed [facility] HPV9 Unknown Completed [facility] TDAP Unknown Completed [facility] Influenza Virus Vaccine Quad IM 3+ YRS Unknown Completed [facility] HPV9 Unknown Completed [facility] TDAP Unknown Completed [facility] Influenza Virus Vaccine Quad IM 3+ YRS Unknown Completed [facility] Vital Signs Vital Name Observation Time Observation Value Comments S ource Systolic blood pressure 2024-11-18 19:27:00 126 mm[Hg] [facility] Diastolic blood pressure 2024-11-18 19:27:00 78 mm[Hg] [facility] Heart rate 2024-11-18 19:27:00 70 /min Unive [facility] Body temperature 2024-11-18 19:27:00 36.67 Shelly [facility] Respiratory rate 2024-11-18 19:27:00 18 /min [facility] Body height 2024-11-18 19:27:00 154.9 cm [facility] Body weight 2024-11-18 19:27:00 75.206 kg [facility] BMI 2024-11-18 19:27:00 31.33 kg/m2 [facility] Systolic blood pressure 2024-05-13 17:53:00 115 mm[Hg] [facility] Diastolic blood pressure 2024-05-13 17:53:00 76 mm[Hg] [facility] Heart rate 2024-05-13 17:53:00 74 /min [facility] Body temperature 2024-05-13 17:53:00 36.67 Shelly [facility] Respiratory rate 2024-05-13 17:53:00 18 /min [facility] Body height 2024-05-13 17:53:00 154.9 cm [facility] Body weight 2024-05-13 17:53:00 70.398 kg [facility] BMI 2024-05-13 17:53:00 29.32 kg/m2 [facility] BP Systolic 2024-02-15 00:00:00 108 mm[Hg] [facility] BP Diastolic 2024-02-15 00:00:00 71 mm[Hg] [facility] BMI (Body Mass Index) 2024-02-15 00:00:00 30.6 kg/m2 [facility] Height 2024-02-15 00:00:00 60 [in_i] [facility] Body Weight 2024-02-15 00:00:00 156.9 [lb_av] [facility] BP Systolic 2024-02-01 00:00:00 113 mm[Hg] [facility] Body Weight 2024-02-01 00:00:00 157.3 [lb_av] [facility] BMI (Body Mass Index) 2024-02-01 00:00:00 30.7 kg/m2 [facility] BP Diastolic 2024-02-01 00:00:00 81 mm[Hg] [facility] Height 2024-02-01 00:00:00 60 [in_i] [facility] BP Systolic 2024-01-31 00:00:00 127 mm[Hg] [facility] Body Weight 2024-01-31 00:00:00 159.2 [lb_av] [facility] BMI (Body Mass Index) 2024-01-31 00:00:00 31.1 kg/m2 [facility] Height 2024-01-31 00:00:00 60 [in_i] [facility] BP Diastolic 2024-01-31 00:00:00 75 mm[Hg] [facility] Systolic blood pressure 2024-01-11 16:12:00 116 mm[Hg] [facility] Diastolic blood pressure 2024-01-11 16:12:00 79 mm[Hg] [facility] Heart rate 2024-01-11 16:12:00 85 /min [facility] Body temperature 2024-01-11 16:12:00 36.61 Shelly [facility] Respiratory rate 2024-01-11 16:12:00 18 /min [facility] Body height 2024-01-11 16:12:00 154.9 cm [facility] Body weight 2024-01-11 16:12:00 71.532 kg [facility] BMI 2024-01-11 16:12:00 29.80 kg/m2 [facility] Oxygen saturation in Arterial blood by Pulse oximetry 2024-01-11 16:12:00 99 /min [facility] Systolic blood pressure 2023-10-24 19:18:00 119 mm[Hg] [facility] Diastolic blood pressure 2023-10-24 19:18:00 75 mm[Hg] [facility] Heart rate 2023-10-24 19:18:00 98 /min [facility] Body temperature 2023-10-24 19:18:00 37.17 Shelly [facility] Respiratory rate 2023-10-24 19:18:00 16 /min [facility] Body weight 2023-10-24 19:18:00 70.308 kg [facility] BMI 2023-10-24 19:18:00 31.31 kg/m2 [facility] Oxygen saturation in Arterial blood by Pulse oximetry 2023-10-24 19:18:00 97 /min [facility] Systolic blood pressure 2023-02-28 13:12:00 123 mm[Hg] [facility] Diastolic blood pressure 2023-02-28 13:12:00 88 mm[Hg] [facility] Heart rate 2023-02-28 13:12:00 91 /min [facility] Body temperature 2023-02-28 13:12:00 36.83 Shelly [facility] Respiratory rate 2023-02-28 13:12:00 18 /min [facility] Body height 2023-02-28 13:12:00 149.9 cm [facility] Body weight 2023-02-28 13:12:00 66.395 kg [facility] BMI 2023-02-28 13:12:00 29.56 kg/m2 [facility] BP Diastolic 2022-11-02 00:00:00 72 mm[Hg] [facility] Height 2022-11-02 00:00:00 64 [in_i] [facility] BMI (Body Mass Index) 2022-11-02 00:00:00 25 kg/m2 [facility] BP Systolic 2022-11-02 00:00:00 108 mm[Hg] [facility] Body Weight 2022-11-02 00:00:00 145.4 [lb_av] [facility] BP Diastolic 2022-10-12 00:00:00 83 mm[Hg] [facility] Height 2022-10-12 00:00:00 64 [in_i] [facility] BMI (Body Mass Index) 2022-10-12 00:00:00 24.6 kg/m2 [facility] BP Systolic 2022-10-12 00:00:00 114 mm[Hg] [facility] Body Weight 2022-10-12 00:00:00 143.3 [lb_av] [facility] BP Diastolic 2022-09-12 00:00:00 79 mm[Hg] [facility] Height 2022-09-12 00:00:00 64 [in_i] [facility] BMI (Body Mass Index) 2022-09-12 00:00:00 25.6 kg/m2 [facility] BP Systolic 2022-09-12 00:00:00 119 mm[Hg] [facility] Body Weight 2022-09-12 00:00:00 148.9 [lb_av] [facility] Systolic blood pressure 2022-07-07 20:00:00 107 mm[Hg] [facility] Diastolic blood pressure 2022-07-07 20:00:00 67 mm[Hg] [facility] Heart rate 2022-07-07 20:00:00 74 /min [facility] Body temperature 2022-07-07 20:00:00 36.44 Shelly [facility] Respiratory rate 2022-07-07 20:00:00 18 /min [facility] Body height 2022-07-07 20:00:00 149.9 cm [facility] Body weight 2022-07-07 20:00:00 64.921 kg [facility] BMI 2022-07-07 20:00:00 28.91 kg/m2 [facility] Procedures Procedure Date / Time Performed Performing Clinician Source HIV 1/2 AG-AB WITH REFLEX 2024-11-18 20:06:00 Shelby Mercer [facility] SYPHILIS IGG/IGM 2024-11-18 20:06:00 Ruslan, [facility] - VAGINAL PATHOGENS BY NUCLEIC ACID TESTING 2024-11-18 20:02:00 Shelby Mercer [facility] POCT TEST 2024-11-18 19:52:00 Shelby Mercer [facility] ULTRASOUND, UTERUS REAL TIME WITH IMAGE DOCUMENTAITON, TRANSVAGINAL 2024-01-31 00:00:00 [facility] ULTRASOUND, UTERUS REAL TIME WITH IMAGE DOCUMENTAITON, TRANSVAGINAL 2024-01-23 00:00:00 [facility] POCT URINALYSIS 2024-01-11 00:00:00 [facility] 2024-01-11 00:00:00 Gwendolyn James [facility] POCT TEST 2023-10-24 19:23:00 Gwendolyn James [facility] GALV ONLY - VAGINAL PATHOGENS BY NUCLEIC ACID TESTING 2023-10-24 19:20:00 Radha James [facility] POCT URINALYSIS 2023-10-24 19:19:00 Radha James Un [facility] ASSIGNMENT OF BENEFITS 2023-10-24 19:09:13 Docto r Unassigned, Goddard [facility] CBC WITH DIFF 2023-02-28 13:55:00 Ena Dalton [facility] GLYCOSYLATED HEMOGLOBIN (A1C) 2023-02-28 13:55:00 Ena Dalton [facility] HCV ANTIBODY 2023-02-28 13:55:00 [facility] GC & CHLAMYDIA AMPLIFIED ASSAY 2023-02-28 13:55:00 Ena Dalton [facility] GALV ONLY - VAGINAL PATHOGENS BY NUCLEIC ACID TESTING 2023-02-28 13:55:00 Ena Dalton [facility] HIV 1/2 AG-AB WITH REFLEX 2023-02-28 13:55:00 Ena Dalton [facility] SYPHILIS IGG/IGM 2023-02-28 13:55:00 Ena Dalton [facility] ASSIGNMENT OF BENEFITS 2023-02-28 12:47:02 Docto r Unassigned, Goddard [facility], transvaginal 2022-11-16 00:00:00 Mohamud kincaid [facility] REFERRAL- REQUEST/RESPONSE 2022-10-14 06:01:00 Doctor Unassigned, Goddard [facility], transvaginal 2022-09-12 00:00:00 [facility] POCT TEST 2022-07-07 20:02:00 Meet Hicks [facility] Salpingectomy, Laparoscopic (Surg) [facility] Plan of Care Planned Activity Planned Date Details Comments Source Diagnostic Test Pending 2024-02-15 00:00:00 urinalysis, dipstick [code = urinalysis, dipstick] [facility] Diagnostic Test Pending 2024-02-15 00:00:00 wet mount, vaginal [code = wet mount, vaginal] [facility] Instructions [facility] Encounters Start Date/Time End Date/Time Encounter Type Admission Type Attending Clinicians Care Facility Care Department Encounter ID Source 2022-10-12 10:36:13 Outpatient [facility] [id number] [facility] 2024-12-18 10:00:00 2024-12-18 10:00:00 Outpatient R ALTAGRACIA WHITLEY VIEN [facility] [id number] [facility] 2024-12-09 08:15:00 2024-12-09 08:15:00 Outpatient R STEPHANIE HICKS [facility] [id number] [facility] 2024-12-05 18:26:00 2024-12-05 18:28:00 Emergency X MARCUS MCKEON JOSEPH [facility] [[email or web address]] ERT [id number] [facility] 2024-12-05 18:26:00 2024-12-05 18:28:00 Emergency Marcus Mckeon [facility] [[email or web address] AT [facility] 1.2.840.114 350.1.13.10 4.2.7.2.686 [id number] [facility] 2024-12-04 12:15:00 2024-12-04 12:15:00 Outpatient R LALY DALTONNDA [facility] [id number] [facility] 2024-12-02 07:30:00 2024-12-02 07:30:00 Outpatient R [facility] [id number] [facility] 2024-12-02 07:00:00 2024-12-02 07:00:00 Outpatient R [facility] [id number] [facility] 2024-11-19 00:00:00 2024-11-19 13:57:55 Case Management Shelby Mercer [facility] [[email or web address]] LEARNING STRATEGIST [facility]ILD [facility] 1..114 350.1.13.10 4.2.7.2.686 [id number] 107 [id number] [facility] 2024-11-18 13:00:00 2024-11-18 14:02:40 Outpatient R SHELBY MERCER [facility] [id number] [facility] 2024-11-18 13:00:00 2024-11-18 14:02:40 Office Visit Shelby Mercer [facility] [[email or web address]] LEARNING STRATEGIST [facility] CHILD [facility] 1..114 350.1.13.10 4.2.7.2.686 [id number] [facility] 2024-09-15 00:00:00 2024-09-15 09:07:09 Refill Stephanie Hikcs [facility] [[email or web address]] LEARNING STRATEGIST [facility]ILD [facility] ..114 350.1.13.10 4.2.7.2.686 [id number] [facility] 2024-09-15 00:00:00 2024-09-15 09:04:53 Refill Stephanie Hicks [facility] [[email or web address]] LEARNING STRATEGIST [facility] 1.0.114 350.1.13.10 4.2.7.2.686 [id number] 107 [id number] [facility] 2024-09-14 00:00:00 2024-09-15 07:57:34 Refill Stephanie Hicks [facility] [[email or web address]] LEARNING STRATEGIST [facility] 1.2.840.114 350.1.13.10 4.2.7.2.686 [id number] [facility] 2024-09-02 09:45:00 2024-09-02 09:45:00 Outpatient R STEPHANIE HICKS [facility] [id number] [facility] 2024-05-16 00:00:00 2024-05-16 15:58:25 Telephone Ena Dalton [facility] [[email or web address]] LEARNING STRATEGIST [facility] 1..840.114 350.1.13.10 4.2.7.2.686 [id number] 107 [id number] [facility] 2024-05-15 00:00:00 2024-05-15 07:53:35 Case Management Ena Dalton [facility] 1..840.114 350.1.13.10 4.2.7.2.686 [id number] [facility] 2024-05-13 12:45:00 2024-05-13 13:28:19 Outpatient R STEPHANIE HICKS [facility] [id number] [facility] 2024-05-13 12:45:00 2024-05-13 13:00:00 Office Visit Stephanie Hicks [facility] [[email or web address]] [facility] 1..840.114 350.1.13.10 4.2.7.2.686 [id number] 107 [id number] [facility] 2024-04-10 15:15:00 2024-04-10 15:15:00 Outpatient R SHELBY MERCER [facility] [id number] [facility] 2024-04-08 21:43:00 2024-04-09 01:18:00 Emergency Flor Anderson [facility] [id number] [facility] 2024-02-15 00:00:00 2024-02-15 00:00:00 Elise Hernandez MD: [address], [address], [place] [address] , Ph. [phone] [facility] - [facility] [id number] [facility] 2024-02-01 14:23:00 2024-02-01 14:23:00 Outpatient ELISE IRBY [facility] [id number] [facility] 2024-02-01 00:00:00 2024-02-01 00:00:00 Elise Hernandez MD: [address], [address], [place] [address] , Ph. [phone] [facility] - OBGY [id number] [facility] 2024-01-31 15:00:00 2024-01-31 15:00:00 Outpatient ELISE IRBY [facility] [id number] [facility] 2024-01-31 00:00:00 2024-01-31 00:00:00 Elise Hernandez MD: [address], [address], [place] [address] , Ph. [phone] [facility] OBGYN [id number] [facility] 2024-01-29 00:00:00 2024-01-29 00:00:00 Outpatient Jose Raul [facility] [id number] [facility] 2024-01-25 14:19:00 2024-01-25 14:19:00 Outpatient JANE CHARLES [facility] [id number] [facility] 2024-01-23 09:29:00 2024-01-23 09:29:00 Outpatient JANE CHARLES [facility] [id number] [facility] 2024-01-23 00:00:00 2024-01-23 00:00:00 Jane Titus SHAREPOINT MANAGER-BC: [address], [address], [place] [address] , Ph. [phone] White_M [facility] - OBGYN [id number] [facility] 2024-01-22 08:15:00 2024-01-22 08:15:00 Outpatient ENA CONTEH [facility] [id number] [facility] 2024-01-16 00:00:00 2024-01-16 00:00:00 Outpatient White_M [facility] [id number] [facility] 2024-01-11 14:00:00 2024-01-11 14:00:00 Outpatient Kinsey UNKNOWN, ATTENDING [facility] [id number] [facility] 2024-01-11 11:00:00 2024-01-11 11:20:14 Outpatient RADHA DYE [facility] [id number] [facility] 2024-01-11 11:00:00 2024-01-11 11:20:14 Urgent Care Radha James Unknown, [facility]ending [facility] 1.2.840.114 350.1.13.10 4.2.7.2.686 [id number] [facility] 2023-10-24 13:00:00 2023-10-24 13:27:23 Outpatient RADHA DYE [facility] [id number] [facility] 2023-10-24 13:00:00 2023-10-24 13:27:23 Urgent Care Radha James Unknown, Attending [facility] 1.2840.114 350.1.13.10 4.2.7.2.686 [id number] [facility] 2023-10-24 00:00:00 2023-10-24 00:00:00 Orders Only Doctor Unassigned, Goddard [facility] 1.2840.114 350.1.13.10 4.2.7.2.686 [id number] [facility] 2023-04-23 13:15:00 2023-04-23 13:15:00 Outpatient R STEPHANIE HICKS [facility] [id number] [facility] 2023-04-02 14:30:00 2023-04-02 14:30:00 Outpatient R IVY MONTEJO [facility] [id number] [facility] 2023-03-31 00:00:00 2023-03-31 00:00:00 Patient Secure Msg Ena Dalton [facility] [[email or web address]] LEARNING STRATEGIST [facility] 1.840.114 350.1.13.10 4.2.7.2.686 [id number] [facility] 2023-03-02 00:00:00 2023-03-02 00:00:00 Case Management Ena Dalton [facility] 1.2840.114 350.1.13.10 4.2.7.2.686 [id number] [facility] 2023-03-02 00:00:00 2023-03-02 00:00:00 Telephone Stephanie Hicks [facility] 1.2.840.114 350.1.13.10 4.2.7.2.686 [id number] 107 [id number] [facility] 2023-03-02 00:00:00 2023-03-02 00:00:00 Patient Secure Kyg Ena Dalton A [facility] LEARNING STRATEGIST [facility] 1.2.840.114 350.1.13.10 4.2.7.2.686 [id number] 107 [id number] [facility] 2023-02-28 07:45:00 2023-02-28 08:57:53 Outpatient Kinsey MICKYAnna ENA [facility] [id number] [facility] 2023-02-28 07:45:00 2023-02-28 08:57:53 Office Visit Portiaaminata Ena Howell [facility] [[email or web address]] LEARNING STRATEGIST [facility] CHILD [facility] 1.2.840.114 350.1.13.10 4.2.7.2.686 [id number] 107 [id number] [facility] 2023-02-28 00:00:00 2023-02-28 00:00:00 Orders Only Doctor Unassigned, Goddard [facility] 1.2.840.114 350.1.13.10 4.2.7.2.686 [id number] [facility] 2023-01-30 14:45:00 2023-01-30 14:45:00 Outpatient Kinsey SHA ENA [facility] [id number] [facility] 2022-12-19 14:30:00 2022-12-19 14:30:00 Outpatient VEILA BAINS [facility] [id number] [facility] 2022-11-16 00:00:00 2022-11-16 00:00:00 [facility] [id number] [facility] 2022-11-16 00:00:00 2022-11-16 00:00:00 BISHOP Gray-BC: [address] [address] , Ph. [phone] [facility] - OBGYN [id number] [facility] 2022-11-02 15:26:00 2022-11-02 15:26:00 Outpatient JANE CHARLES [facility] [id number] [facility] 2022-11-02 00:00:00 2022-11-02 00:00:00 SKYLAR GrayBC: [address], [place] [address] , Ph. [phone] [facility] - OBGYN [id number] [facility] 2022-10-14 00:00:00 2022-10-14 00:00:00 Orders Only Doctor Unassigned, Goddard [facility] 1.2.840.114 350.1.13.10 4.2.7.2.686 [id number] [facility] 2022-10-12 00:00:00 2022-10-12 00:00:00 [place] [id number] [facility] 2022-10-12 00:00:00 2022-10-12 00:00:00 Outpatient White_M MM[facility] [id number] [facility] 2022-10-12 00:00:00 2022-10-12 00:00:00 Jane Titus [facility]: [address], [place] [address] , Ph. [phone] [facility] [id number] [facility] 2022-10-06 09:00:00 2022-10-06 09:00:00 Outpatient R STEPHANIE HICKS [facility] [id number] [facility] 2022-09-12 15:04:00 2022-09-12 15:04:00 Outpatient JANE CHARLES [facility] [id number] [facility] 2022-09-12 00:00:00 2022-09-12 00:00:00 Outpatient White_M MMG MMG [id number] [facility] 2022-09-12 00:00:00 2022-09-12 00:00:00 Jane Ariela, SHAREPOINT MANAGER-BC: [address], [place] [address] , Ph. [phone] [facility] - OBGYN [id number] [facility] 2022-07-07 14:45:00 2022-07-07 15:27:14 Office Visit Stephanie Hicks [facility] [[email or web address]] LEARNING STRATEGIST [facility] ..840.114 350.1.13.10 4.2.7.2.686 [id number] [facility] 2022-07-07 14:45:00 2022-07-07 15:27:14 Outpatient R STEPHANIE HICKS [facility] [id number] [facility] 2022-07-07 14:45:00 2022-07-07 14:45:00 Outpatient R STEPHANIE HICKS [facility] [id number] [facility] 2022-07-07 08:15:00 2022-07-07 08:15:00 Outpatient R RICHARD AMAYA [facility] [id number] [facility] 2022-06-27 00:00:00 2022-06-27 00:00:00 Patient Secure Msg Stephanie Hicks [facility] [[email or web address]] LEARNING STRATEGIST [facility] ..840.114 350.1.13.10 4.2.7.2.686 [id number] 107 [id number] [facility] 2022-06-21 10:30:00 2022-06-21 11:49:35 Office Visit Stephanie Hicks [facility] [[email or web address]] LEARNING STRATEGIST [facility] ..840.114 350.1.13.10 4.2.7.2.686 [id number] [facility] 2022-06-21 10:30:00 2022-06-21 11:49:35 Outpatient R STEPHANIE HICKS [facility] [id number] [facility] 2022-06-21 10:30:00 2022-06-21 10:30:00 Outpatient R STEPHANIE HICKS [facility] [id number] [facility] 2022-06-19 10:15:00 2022-06-19 10:15:00 Outpatient R STEPHANIE HICKS [facility] [id number] [facility] 2022-06-16 14:00:00 2022-06-16 14:00:00 Outpatient R STEPHANIE HICKS [facility] [id number] [facility] 2022-06-16 00:00:00 2022-06-16 00:00:00 Telephone KatjessStephanie Beatriz [facility] [[email or web address]] LEARNING STRATEGIST [facility] .840.114 350.1.13.10 4.2.7.2.686 [id number] [facility] 2022-04-25 08:15:00 2022-04-25 08:15:00 Outpatient R STEPHANIE HICKS [facility] [id number] [facility] 2022-04-18 14:15:00 2022-04-18 14:15:00 Outpatient R STEPHANIE HICKS [facility] [id number] [facility] 2022-04-14 00:00:00 2022-04-14 00:00:00 Telephone Stephanie Hicks [facility] [[email or web address]] LEARNING STRATEGIST [facility] .840.114 350.1.13.10 4.2.7.2.686 [id number] 107 [id number] [facility] 2022-04-14 00:00:00 2022-04-14 00:00:00 Patient Secure Msg [place] Stephanie Henderson [facility] [[email or web address]] LEARNING STRATEGIST [facility] 1..840.114 350.1.13.10 4.2.7.2.686 [id number] 107 [id number] [facility] 2022-04-04 00:00:00 2022-04-04 00:00:00 Patient Secure Msg Stephanie Hicks [facility] [[email or web address]] LEARNING STRATEGIST [facility] CHILD [facility] 1.2840.114 350.1.13.10 4.2.7.2.686 [id number] 107 [id number] [facility] 2022-04-03 00:00:00 2022-04-03 00:00:00 Patient Secure Msg Stephanie Hicks [facility] [[email or web address]] LEARNING STRATEGIST [facility] 1.840.114 350.1.13.10 4.2.7.2.686 [id number] 107 [id number] [facility] 2022-04-03 00:00:00 2022-04-03 00:00:00 Telephone Stephanie Hicks [facility] [[email or web address]] LEARNING STRATEGIST [facility] 1.0.114 350.1.13.10 4.2.7.2.686 [id number] 107 [id number] [facility] 2022-03-31 16:00:00 2022-03-31 16:29:52 Outpatient R STEPHANIE HICKS [facility] [id number] [facility] 2022-03-31 16:00:00 2022-03-31 16:29:52 Office Visit Stephanie Hicks [facility] [[email or web address]] LEARNING STRATEGIST [facility] 1.840.114 350.1.13.10 4.2.7.2.686 [id number] 107 [id number] [facility] 2022-03-31 00:00:00 2022-03-31 00:00:00 Orders Only Doctor Unassigned, Goddard [facility] 1.840.114 350.1.13.10 4.2.7.2.686 [id number] [facility] 2022-01-30 13:00:00 2022-01-30 13:00:00 Outpatient R KARLA BURRELL [facility] [id number] [facility] 2021-11-12 00:00:00 2021-11-12 00:00:00 Patient Secure Msg Doctor Unassigned, Goddard [facility] 1.2.840.114 350.1.13.10 4.2.7.2.686 [id number] [facility] 2021-11-11 14:00:00 2021-11-11 14:00:00 Outpatient R STEPHANIE HICKS [facility] [id number] [facility] 2021-11-11 14:00:00 2021-11-11 14:00:00 Outpatient R STEPHANIE HICKS [facility] [id number] [facility] 2021-10-28 13:45:00 2021-10-28 14:59:43 Outpatient R STEPHANIE HICKS [facility] [id number] [facility] 2021-10-28 13:45:00 2021-10-28 14:59:43 Office Visit Stephanie Hicks [facility] [[email or web address]] LEARNING STRATEGIST [facility] 1.2.840.114 350.1.13.10 4.2.7.2.686 [id number] [facility] 2021-05-25 00:00:00 2021-05-25 00:00:00 Telephone Stephanie Hicks [facility] [[email or web address]] LEARNING STRATEGIST [facility] 1.2.840.114 350.1.13.10 4.2.7.2.686 [id number] 107 [id number] [facility] 2021-05-24 15:15:00 2021-05-24 15:15:00 Outpatient R STEPHANIE HICKS [facility] [id number] [facility] 2021-05-11 16:00:00 2021-05-11 16:00:00 Outpatient R STEPHANIE HICKS [facility] [id number] [facility] 2021-04-26 00:00:00 2021-04-26 00:00:00 Telephone Stephanie Hicks [facility] [[email or web address]] LEARNING STRATEGIST [facility] 1.2840.114 350.1.13.10 4.2.7.2.686 [id number] 107 [id number] [facility] 2021-04-14 13:45:00 2021-04-14 13:45:00 Outpatient P [facility] [id number] [facility] 2021-04-05 15:45:00 2021-04-05 15:45:00 Outpatient R STEPHANIE HICKS [facility] [id number] [facility] 2021-04-04 00:00:00 2021-04-04 00:00:00 Patient Secure Msg Doctor Unassigned, Goddard [email or web address] 1.2840.114 350.1.13.10 4.2.7.2.686 [id number] 107 [id number] [facility] 2021-03-30 00:00:00 2021-03-30 00:00:00 Patient Secure Msg Doctor Unassigned, Goddard [facility] 1.2840.114 350.1.13.10 4.2.7.2.686 [id number] [facility] 2021-03-25 00:00:00 2021-03-25 00:00:00 Telephone Stephanie Hicks [facility] [[email or web address]] LEARNING STRATEGIST [facility] CHILD [facility] 1.2840.114 350.1.13.10 4.2.7.2.686 [id number] 2021-03-25 00:00:00 2021-03-25 00:00:00 Telephone Stephanie Hicks [facility] [[email or web address]] LEARNING STRATEGIST [facility] 1.2840.114 350.1.13.10 4.2.7.2.686 [id number] [facility] 2021-03-24 10:30:23 2021-03-24 10:47:41 Hot Water Heater Installer Visit Lab, OlafRmchIda Garcia [facility] [[email or web address]] LEARNING STRATEGIST [facility] 1.2.840.114 350.1.13.10 4.2.7.2.686 [id number] [facility] 2021-03-24 10:30:00 2021-03-24 10:30:00 Outpatient R [facility] [id number] [facility] 2021-03-24 00:00:00 2021-03-24 00:00:00 Patient Secure Msg Doctor Unassigned, Goddard [facility] 1.2.840.114 350.1.13.10 4.2.7.2.686 [id number] [facility] 2021-03-24 00:00:00 2021-03-24 00:00:00 Telephone Stephanie Hicks [facility] [[email or web address]] LEARNING STRATEGIST [facility] 1.2.840.114 350.1.13.10 4.2.7.2.686 [id number] 107 [id number] [facility] 2021-03-23 00:00:00 2021-03-23 00:00:00 Patient Secure g Richard Amaya R [facility] [[email or web address]] LEARNING STRATEGIST [facility] 1.2.840.114 350.1.13.10 4.2.7.2.686 [id number] 107 [id number] [facility] 2021-03-22 15:10:35 2021-03-22 15:25:35 Initial Visit Stephanie Hicks [facility] [[email or web address]] LEARNING STRATEGIST [facility] 1.2.840.114 350.1.13.10 4.2.7.2.686 [id number] [facility] 2021-03-22 15:00:00 2021-03-22 15:00:00 Outpatient R STEPHANIE HICKS [facility] [id number] [facility] 2021-03-22 00:00:00 2021-03-22 00:00:00 Orders Only Doctor Unassigned, Goddard [facility] 1.2840.114 350.1.13.10 4.2.7.2.686 [id number] [facility] 2021-02-23 13:08:12 2021-02-23 13:35:01 Office Visit Richard Amaya [facility] [[email or web address]] LEARNING STRATEGIST [facility] 1..114 350.1.13.10 4.2.7.2.686 [id number] 107 [id number] [facility] 2021-02-23 13:00:00 2021-02-23 13:00:00 Outpatient R RICHARD AMAYA [facility] [facility] [id number] [facility] 2021-02-16 09:30:00 2021-02-16 09:30:00 Outpatient R [facility] [id number] [facility] 2021-02-16 09:30:00 2021-02-16 09:30:00 Outpatient R RICHARD AMAYA [facility] [id number] [facility] 2021-02-14 00:00:00 2021-02-14 00:00:00 Patient Secure Msg Doctor Unassigned, [place] [facility] [[email or web address]] LEARNING STRATEGIST [facility] 1.84.114 350.1.13.10 4.2.7.2.686 [id number] [facility] 2021-02-14 00:00:00 2021-02-14 00:00:00 Patient Secure Msg Doctor Unassigned, [place] [facility] 1.2840.114 350.1.13.10 4.2.7.2.686 [id number] [facility] 2021-02-02 10:05:24 2021-02-02 11:11:24 Routine Visit Richard Amaya [facility] [[email or web address]] LEARNING STRATEGIST [facility] 1..840.114 350.1.13.10 4.2.7.2.686 [id number] 107 [id number] [facility] 2021-02-02 10:00:00 2021-02-02 10:00:00 Outpatient RICHARD GRAVES [facility] [id number] [facility] 2021-02-02 00:00:00 2021-02-02 00:00:00 Orders Only Doctor Unassigned, [place] [facility] 1.840.114 350.1.13.10 4.2.7.2.686 [id number] [facility] 2021-02-01 14:45:00 2021-02-01 14:45:00 Outpatient RICHARD GRAVES [facility] [id number] [facility] 2021-01-31 13:45:00 2021-01-31 13:45:00 Outpatient RICHARD GRAVES [facility] [id number] [facility] 2021-01-11 00:00:00 2021-01-11 00:00:00 Patient Outreach Pardeep Amaro [facility] [[email or web address]] [facility] .840.114 350.1.13.10 4.2.7.2.686 [id number] [facility] 2021-01-10 14:26:11 2021-01-10 15:14:43 Initial Visit Richard Amaya [facility] [[email or web address]] LEARNING STRATEGIST [facility] 1..840.114 350.1.13.10 4.2.7.2.686 [id number] [facility] 2021-01-10 14:00:00 2021-01-10 14:00:00 Outpatient RICHARD GRAVES [facility] [id number] [facility] 2021-01-10 00:00:00 2021-01-10 00:00:00 Orders Only Doctor Unassigned, [place] [facility] 1..114 350.1.13.10 4.2.7.2.686 [id number] [facility] 2021-01-03 14:00:00 2021-01-03 14:00:00 Outpatient R [facility] [id number] [facility] 2021-01-03 12:45:00 2021-01-03 12:45:00 [facility] [id number] [facility] 2020-12-28 13:15:00 2020-12-28 13:15:00 Outpatient JULIA GRAVESZITANHDante [facility] [id number] [facility] 2020-11-29 00:00:00 2020-11-29 00:00:00 Telephone Julia Amayarosa [facility] LEARNING STRATEGIST [facility] 1.84.114 350.1.13.10 4.2.7.2.686 [id number] [facility] 2020-11-24 14:45:48 2020-11-24 15:26:28 Office Visit AmayaRichard [facility] LEARNING STRATEGIST [facility] 1.840.114 350.1.13.10 4.2.7.2.686 [id number] [facility] 2020-11-24 14:45:00 2020-11-24 14:45:00 Outpatient JULIA GRAVESROSA [facility] [id number] [facility] 2020-11-24 00:00:00 2020-11-24 00:00:00 Orders Only Doctor Unassigned, [place] [facility] 1..114 350.1.13.10 4.2.7.2.686 [id number] [facility] 2020-09-14 13:30:00 2020-09-14 13:30:00 Outpatient R RICHARD AMAYA [facility] [id number] [facility] 2020-09-13 00:00:00 2020-09-13 00:00:00 Telephone Richard Amaya [facility] [[email or web address]] LEARNING STRATEGIST [facility] 1.2.840.114 350.1.13.10 4.2.7.2.686 [id number] [facility] 2020-09-09 15:00:00 2020-09-09 15:00:00 Outpatient R RICHARD AMAYA [facility] [id number] [facility] 2020-09-01 12:45:00 2020-09-01 12:45:00 Outpatient R RICHARD AMAYA [facility] [id number] [facility] 2020-09-01 12:45:00 2020-09-01 12:45:00 Outpatient R RICHARD AMAYA [facility] [id number] [facility] 2020-07-29 09:45:00 2020-07-29 09:45:00 Outpatient R AKINSIJESS, STEPHANIE [facility] [id number] [facility] 2020-07-29 09:45:00 2020-07-29 09:45:00 Outpatient R AKINSIJESS STEPHANIE [facility] [id number] [facility] 2020-06-08 10:45:00 2020-06-08 10:45:00 Outpatient R AKINSIPE STEPHANIE [facility] [id number] [facility] 2020-06-08 10:45:00 2020-06-08 10:45:00 Outpatient R AKINSIBUNNY GLASERSTEPHANIE [facility] [id number] [facility] 2020-04-13 11:00:57 2020-04-13 11:44:15 Office Visit Richard Amaya [facility] [[email or web address]] LEARNING STRATEGIST [facility] 1..840.114 350.1.13.10 4.2.7.2.686 [id number] [facility] 2020-04-13 11:00:00 2020-04-13 11:00:00 Outpatient R RICHARD AMAYA [facility] [id number] [facility] 2020-04-13 09:45:00 2020-04-13 09:45:00 Outpatient IDA KNOWLES [facility] [id number] [facility] 2020-03-09 10:30:00 2020-03-09 10:30:00 Outpatient RICHARD GRAVES [facility] [id number] [facility] 2020-03-04 00:00:00 2020-03-04 00:00:00 Telephone Ida Varela [facility] [[email or web address]] LEARNING STRATEGIST [facility] .840.114 350.1.13.10 4.2.7.2.686 [id number] [facility] 2020-01-12 15:30:00 2020-01-12 15:30:00 Outpatient IDA KNOWLES [facility] [id number] [facility] 2020-01-07 00:00:00 2020-01-07 00:00:00 Patient Secure Msg Doctor Unassigned, [place] [facility] [[email or web address]] LEARNING STRATEGIST [facility] ..840.114 350.1.13.10 4.2.7.2.686 [id number] 107 [id number] [facility] 2020-01-05 13:19:07 2020-01-05 14:07:46 Office Visit Stephanie Hicks [facility] [[email or web address]] LEARNING STRATEGIST [facility] ..840.114 350.1.13.10 4.2.7.2.686 [id number] 107 [id number] [facility] 2020-01-05 13:15:00 2020-01-05 13:15:00 Outpatient STEPHANIE BAKER [facility] [id number] [facility] 2019-12-12 08:00:00 2019-12-12 08:00:00 Outpatient R AMAYA, RICHARD [facility] [id number] [facility] 2019-12-11 00:00:00 2019-12-11 00:00:00 Patient Secure Msg Ida Varela [facility] [[email or web address]] LEARNING STRATEGIST [facility] 1.2840.114 350.1.13.10 4.2.7.2.686 [id number] [facility] 2019-12-08 11:15:24 2019-12-08 11:43:05 Office Visit Amaya, Richard Euceda [facility] [[email or web address]] LEARNING STRATEGIST [facility] 1.2840.114 350.1.13.10 4.2.7.2.686 [id number] [facility] 2019-12-08 00:00:00 2019-12-08 00:00:00 Orders Only Doctor Unassigned, [place] [facility] 1.2840.114 350.1.13.10 4.2.7.2.686 [id number] [facility] 2019-11-28 00:00:00 2019-11-28 00:00:00 Telephone Ida Varela [facility] [[email or web address]] LEARNING STRATEGIST [facility] 1.2840.114 350.1.13.10 4.2.7.2.686 [id number] [facility] 2019-11-25 08:40:20 2019-11-25 09:30:23 Office Visit Ida Varela [facility] [[email or web address]] LEARNING STRATEGIST [facility] 1.2840.114 350.1.13.10 4.2.7.2.686 [id number] [facility] 2019-11-25 00:00:00 2019-11-25 00:00:00 Telephone Ida Varela [facility] [[email or web address]] LEARNING STRATEGIST [facility] 1.2.840.114 350.1.13.10 4.2.7.2.686 [id number] 107 [id number] [facility] 2019-11-05 00:00:00 2019-11-05 00:00:00 Telephone Stephanie Hicks Beatriz [facility] [[email or web address]] LEARNING STRATEGIST [facility] 1.2.840.114 350.1.13.10 4.2.7.2.686 [id number] [facility] 2019-06-17 12:53:35 2019-06-17 13:48:17 Office Visit Ida Varela [facility] [[email or web address]] LEARNING STRATEGIST [facility] 1.2.840.114 350.1.13.10 4.2.7.2.686 [id number] [facility] 2019-06-17 00:00:00 2019-06-17 00:00:00 Orders Only Doctor Unassigned, [place] [facility] 1.2.840.114 350.1.13.10 4.2.7.2.686 [id number] [facility] Results Test Description Test Time Test Comments Results Result Co mments Source [facility] [id number] 23:45:00* Test Item Value Reference Range Interpretation [...] milliInternationalunits/mL SHOULD BE CONSIDERED NEGATIVE - DUP AB/PEL/SC/[id number] 23:00:00 [facility]ame: DEREK GARCIA : 1995 Sex: FPatient Name: DEREK GARCIA Unit No: [id number] EXAMS: CPT CODE: [id number] DUP AB/PEL/SC/LTD 62174 EXAM: - US PREG EVAL 1ST TRIMTR, - US PREG UT TRANSVAGINAL, - DUP AB/PEL/SC/LTD 04/08/2024 10:57 PM CLINICAL INFORMATION: Vaginal bleeding. TECHNIQUE: Transabdominal and transvaginal horowitz-scale andcolor Doppler ultrasound of the pelvis was performed. COMPARISON: None FINDINGS: Uterus: 8.2 x 4.7 x 6.2 cm. Thickened endometrium measures 1.7 cm with multiple nonspecific prominent vessels/vasculature within the myometrium. No intrauterine identified. Right ovary: 3.9 x 2.9 x 3 cm. Normal blood flow on Doppler interrogation. Echogenic structure in the right adnexa measures 2.1 x 1.3 x1.7 cm. Left ovary: 2.3 x 1.6 x 1.5 cm. Normal blood flow on Doppler interrogation. No suspicious mass. Other: No free fluid in the pelvis. IMPRESSION: No intrauterine . Echogenic structurein the right adnexa measuring 2.1 x 1.3 x 1.7 cm may represent an ectopic . Thickened endometrium measures 1.7 cm with multiple nonspecific prominent vessels/vasculature within the myometrium. at 2300 Reported and signedby: Darienl Hall M.D. CC: Flor Rouse MD Technologist: Luma Watkins RDMS Probe: Trnscrbd D/ (2299) PramodR.HMS3 Orig Print D/T: S: 04/08/2024 (2303) [facility] NAME: JULIODEREK Radiology Department PHYS: Flor Rouse MD [address] : 1995 AGE: 28 SEX: F [place] [address] LOC: F.ERS PHONE #: [phone] DATE: 04/08/2024 STATUS: REG ER FAX #: [phone] RAD NO: Page 1 Signed Report Patient Name:DEREK GARCIA Unit No: [id number] EXAMS: CPT CODE: [id number] DUP AB/PEL/SC/LTD 45827 (Continued) [facility] NAME: DEREK GARCIA Radiology Department PHYS: ALISHA Flor Rouse MD [address] : 1995 AGE: 28 SEX: F [place] [address] LOC: F.ERS PHONE #: [phone] EXAM DATE: 04/08/2024 STATUS: REG ER FAX #: [phone] RAD NO: Page 2 Signed Report- US PREG UT [id number] 23:00:00 [facility] JULIO DEREK : 1995 Sex: FPatient Name: DEREK GARCIA Unit No: [id number] EXAMS: CPT CODE: [id number] US PREG UT TRANSVAGINAL 49186 EXAM: - US PREG EVAL 1ST TRIMTR, [...] CC: Flor Rouse MD Technologist: Luma Watkins [facility] Probe: [id number] Trnscrbd D/ (2300) tHORTENCIAR.HMS3 Orig Print D/T: S: 04/08/2024 (2304) [facility] NAME: DEREK GARCIA Radiology Department PHYS: Flor Rouse MD [address] : 1995 AGE: 28 SEX: F [place], [place] [address] LOC: OfeliaERS PHONE #: [phone] EXAM DATE: 04/08/2024 STATUS: REG ER FAX #: [phone] RAD NO: Page 1 Signed Report Patient Name: DEREK GARCIA Unit No: [id number] EXAMS: CPT CODE: [id number] US PREG UT TRANSVAGINAL 00707 (Continued) [facility] NAME: DEREK GARCIA Radiology Department PHYS: [email or web address] - Flor Rouse MD [address] : 1995 AGE: 28 SEX: F [place], [place] [address] LOC: JA PHONE #: [phone] EXAM DATE: 04/08/2024 STATUS: REG ER FAX #: [phone] RAD NO: Page 2 Signed Report- US PREG EVAL 1ST [id number] 23:00:00[facility] DEREK [facility]ARCIA : 1995 Sex: FPatient Name: DEREK GARCIA Unit No: [id number] EXAMS: CPT CODE: [id number] US PREG EVAL 1ST TRIMTR 22647 EXAM: - US PREG EVAL 1ST TRIMTR, [...] t.SDR.HMS3 Orig Print D/T: S: 04/08/2024 (2304) [facility] NAME: DEREK GARCIA Radiology Department PHYS: IMELDA Flor Rouse MD [address] : 1995 AGE: 28 SEX: F [place] [address] LOC: OfeliaERS PHONE #: [phone] EXAM DATE: 04/08/2024 STATUS: REG ER FAX #: [phone] RAD NO: Page 1 Signed Report Patient Name: JULIODEREK Unit No: [id number] EXAMS: CPT CODE: [id number] US PREG EVAL 1ST TRIMTR 42933 (Continued) [facility] NAME: DEREK GARCIA Radiology Department PHYS: IMELDA Flor Rouse MD [address] : 1995 AGE: 28 SEX: F [place] [address] LOC: OfeliaERS PHONE #: [phone] EXAM DATE: 04/08/2024 STATUS: REG ER FAX #: [phone] RAD NO: Page 2 Signed ReportMicroscopic observation [Identifier] in Vaginal fluid by Wet mellpdboozb0896-49-93 16:35:18* Test Item Value Reference Range Interpretation Comme nts Clue Cells (test code = Clue Cells) negative WBCs (test code = WBCs) positive Trichomonads (test code = Trichomonads) negative Epithelial cells (test code = Epithelial cells) normal RBCs (test code = RBCs) negative [facility] (dipstick) panel - Khgmy1382-76-94 14:37:04* Test Item Value Reference Range Interpretation Comme nts Leukocytes (test code = Leukocytes) Negative Nitrite (test code = Nitrite) negative Urobilinogen (test code = Urobilinogen) .2 Protein (test code = Protein) Negative pH (test code = pH) 6.0 Blood (test code = Blood) Non-Hemolyzed: Trace Specific [place] (test code = Specific [place]) 1.025 Ketone (test code = Ketone) Negative Bilirubin (test code = Bilirubin) Negative Glucose (test code = Glucose) Negative Appearance (test code = Appearance) Clear Color (test code = Color) Yellow [facility]CBC W Auto Differential panel - Kuqmi9630-77-27 14:43:00 * Test Item Value Reference Range [...] NRBC# (test code = NRBC#) 0 K/uL [facility]inal[facility] macro (dipstick) panel - Fgajk3869-29-05 14:01:32* Test Item Value Reference Range Interpretation Comme nts Leukocytes (test code = Leukocytes) Small Nitrite (test code = Nitrite) negative Urobilinogen (test code = Urobilinogen) .2 Protein (test code = Protein) 30 pH (test code = pH) 5.0 Blood (test code = Blood) Moderate Specific [place] (test code = Specific [place]) 1.025 Ketone (test code = Ketone) Large Bilirubin (test code = Bilirubin) Negative Glucose (test code = Glucose) Negative Appearance (test code = Appearance) Clear Color (test code = Color) Yellow [facility] rnxgcfzoznms8297-62-44 17:06:00* Test Item Value Reference Range Interpretation Comme nts HCG quantitative (test code = HCG quantitative) 8750.0 mIU/mL 0-5 H [facility] County[facility]inalysis macro (dipstick) panel - Ajjyn8619-06-85 14:17:46* Test Item Value Reference Range Interpretation Comme nts Leukocytes (test code = Leukocytes) Small Nitrite (test code = Nitrite) negative Urobilinogen (test code = Urobilinogen) .2 Protein (test code = Protein) Negative pH (test code = pH) 7.0 Blood (test code = Blood) Non-Hemolyzed: Trace Specific [place] (test code = Specific [place]) 1.015 Ketone (test code = Ketone) Negative Bilirubin (test code = Bilirubin) Negative Glucose (test code = Glucose) Negative Appearance (test code = Appearance) Clear Color (test code = Color) Yellow [facility] htqusddhnwyq4180-43-09 18:09:00* Test Item Value Reference Range Interpretation Comme nts HCG quantitative (test code = HCG quantitative) 1146.0 mIU/mL 0-5 H [facility] gwhffylubjhm2386-35-34 11:06:00* Test Item Value Reference Range Interpretation Comme nts HCG quantitative (test code = HCG quantitative) 466.6 mIU/mL 0-5 H [facility] CountyChoriogonadotropin.beta subunit [Units/volume] in Serum or Wmszzd9377-07-53 11:06:00* Test Item Value Reference Range Interpretation Comme nts HCG quantitative (test code = HCG quantitative) 466.6 mIU/mL 0-5 H [facility] Countypregnancy test, rgykk2922-30-35 09:36:27* Test Item Value Reference Range Interpretation Comme nts Test (test code = Test) positive [facility]inalysis macro (dipstick) panel - Yotlt3232-50-98 08:33:52* Test Item Value Reference Range Interpretation Comme nts Leukocytes (test code = Leukocytes) Negative Nitrite (test code = Nitrite) negative Urobilinogen (test code = Urobilinogen) .2 Protein (test code = Protein) Negative pH (test code = pH) 6.0 Blood (test code = Blood) Non-Hemolyzed: Trace Specific [place] (test code = Specific [place]) 1.025 Ketone (test code = Ketone) Negative Bilirubin (test code = Bilirubin) Negative Glucose (test code = Glucose) Negative Appearance (test code = Appearance) Clear Color (test code = Color) Yellow [facility] [id number] 16:22:00* Test Item Value Reference Range Interpretation Comme nts POCT PREG (test code = 1605) Negative On board controls acceptable with C Line (test code = 3574) Yes POCT PREG LOT # (test code = 3575) POCT PREG TEST DATE ( test code = 357) Lab Interpretation (test cod e = 64597-2) Normal [facility] Urinalysis W Specific [id number] 16:19:00* Test Item Value Reference Range Interpretation [...] Cloudy Lab Interpretation (test cod e = 12769-1) Abnormal [facility] Uxuy1942-63-29 19:24:00* Test Item Value Reference Range Interpretation Comme nts POCT PREG (test code = 1605) Negative On board controls acceptable with C Line (test code = 3574) Yes POCT PREG LOT # (test code = 3575) POCT PREG TEST DATE (test code = 357) CECIL (test code = CECIL) accurate developme nt and interpretation of all internal controls Lab Interpretation (test code = 20097-3) Normal [facility] Qiwj2753-94-78 19:24:00* Test Item Value Reference Range Interpretation Comme nts POCT PREG (test code = 1605) Negative On board controls acceptable with C Line (test code = 3574) Yes POCT PREG LOT # (test code = 3575) POCT PREG TEST DATE (test code = 3576) CECIL (test code = CECIL) accurate developme nt and interpretation of all internal controls Lab Interpretation (test code = 60685-0) Normal [facility] Urinalysis W Specific Byzycjc4826-09-13 19:20:00* Test Item Value Reference Range Interpretation [...] internal controls Lab Interpretation (test code = 07411-5) Normal [facility] Urinalysis W Specific Ubghxmi2668-29-90 19:20:00* Test Item Value Reference Range Interpretation [...] internal controls Lab Interpretation (test code = 95753-3) Normal [facility] ONLY - [place] IGG/[id number] 15:05:59* Test Item Value Reference Range Interpretation Comme nts Syphilis IgG/IgM (test code = 85780-8) Non-reactive Non-reactive CECIL (test code = CCEIL) Non-reactive - No serologic evidence of T. pallidum infection. Cannot exclude incubating or early syphilis. Submit a second specimen in 2-4 weeks if syphilis is clinically suspected. Equivocal - Further testing to follow. Reactive - Further testing to follow. Lab Interpretation (test code = 19308-7) Normal [facility] ONLY - [place] IGG/[id number] 15:05:59* Test Item Value Reference Range Interpretation Comme nts Syphilis IgG/IgM (test code = 37819-3) Non-reactive Non-reactive CECIL (test code = CECIL) Non-reactive - No serologic evidence of T. pallidum infection. Cannot exclude incubating or early syphilis. Submit a second specimen in 2-4 weeks if syphilis is clinically suspected. Equivocal - Further testing to follow. Reactive - Further testing to follow. Lab Interpretation (test code = 48241-4) Normal [facility] ONLY - [place] IGG/[id number] 15:05:59* Test Item Value Reference Range Interpretation Comme nts Syphilis IgG/IgM (test code = 50098-9) Non-reactive Non-reactive CECIL (test code = CECIL) Non-reactive - No serologic evidence of T. pallidum infection. Cannot exclude incubating or early syphilis. Submit a second specimen in 2-4 weeks if syphilis is clinically suspected. Equivocal - Further testing to follow. Reactive - Further testing to follow. Lab Interpretation (test code = 59781-5) Normal [facility] 1/2 AG-AB WITH [id number] 06:58:27* Test Item Value Reference Range Interpretation Comme nts HIV Semi-quantitative (test code = 56196-1) 0.12 Negative CECIL (test code = CECIL) Non-reactive for HIV-1 antigen and HIV-1/HIV-2 antibodies. ?No laboratory evidence of HIV infection. ?Repeat in 2-4 weeks if acute HIV infection is suspected. [facility] 1/2 AG-AB WITH [id number] 06:58:27* Test Item Value Reference Range Interpretation Comme nts HIV Semi-quantitative (test code = 14717-3) 0.12 Negative CECIL (test code = CECIL) Non-reactive for HIV-1 antigen and HIV-1/HIV-2 antibodies. ?No laboratory evidence of HIV infection. ?Repeat in 2-4 weeks if acute HIV infection is suspected. [facility] 1/2 AG-AB WITH [id number] 06:58:27* Test Item Value Reference Range Interpretation Comme nts HIV Semi-quantitative (test code = 75024-9) 0.12 Negative CECIL (test code = CECIL) Non-reactive for HIV-1 antigen and HIV-1/HIV-2 antibodies. ?No laboratory evidence of HIV infection. ?Repeat in 2-4 weeks if acute HIV infection is suspected. [facility] [id number] 05:29:42* Test Item Value Reference Range Interpretation Comme nts HCV Ab (test code = 36452-5) Negative HCV Semi-Quantitative (test code = 19166-9) 0.01 [facility] [id number] 05:29:42* Test Item Value Reference Range Interpretation Comme nts HCV Ab (test code = 43150-2) Negative HCV Semi-Quantitative (test code = 15439-4) 0.01 [facility] [id number] 05:29:42* Test Item Value Reference Range Interpretation Comme nts HCV Ab (test code = 80584-4) Negative HCV Semi-Quantitative (test code = 73302-2) 0.01 [facility] HospitalGLY[facility]OSYL[facility] HEMOGLOBIN (A1C)2023-03-01 05:25:25* Test Item Value Reference Range Interpretation Comme nts HGB A1C (test code = 4548-4) 5.3 % 4.0-5.7 CECIL (test code = CECIL) Reference RangesNormal: <5.7%Prediabetes: 5.7 - 6.4%Diabetes: > 6.5% Lab Interpretation (test code = 88153-2) Normal [facility] Hospital[facility]YCOS[facility] HEMOGLOBIN (A1C)2023-03-01 05:25:25* Test Item Value Reference Range Interpretation Comme nts HGB A1C (test code = 4548-4) 5.3 % 4.0-5.7 CECIL (test code = CECIL) Reference RangesNormal: <5.7%Prediabetes: 5.7 - 6.4%Diabetes: > 6.5% Lab Interpretation (test code = 42414-2) Normal [facility] (A1C)2023-03-01 05:25:25* Test Item Value Reference Range Interpretation Comme nts HGB A1C (test code = 4548-4) 5.3 % 4.0-5.7 CECIL (test code = CECIL) Reference RangesNormal: <5.7%Prediabetes: 5.7 - 6.4%Diabetes: > 6.5% Lab Interpretation (test code = 45348-9) [facility] [id number] 05:04:15* Test Item Value Reference Range Interpretation [...] 32.5 g/dL 31.6-35.1 RDW-SD (test code = 18948-9) 43.6 fL 39.0-49.9 RDW-CV (test code = 788-0) 12.8 % 12.0-15.5 PLT (test code = 777-3) 326 See_Comment [Automated [employer]] The system which generated this result transmitted reference range: 166 - 358 10*3/?L. The reference range was not used to interpret this result as normal/abnormal. MPV (test code = 02027-5) 10.1 fL 9.5-12.9 NRBC/100 WBC (test code = 4844432169) 0.0 See_Comment [Automated [employer]] The system which generated this result transmitted reference range: 0.0 - 10.0 /100 WBCs. The reference range was not used to interpret this result as normal/abnormal. NRBC x10^3 (test code = 1409681758) See_Comment [Automated [employer]] The system which generated this result transmitted reference range: 10*3/?L. The reference range was not used to interpret this result as normal/abnormal. GRAN MAT (NEUT) % (test code = 770-8) 59.5 % IMM GRAN % (test code = 7170701950) 0.10 % LYMPH % (test code = 736-9) 31.2 % MONO % (test code = 5905-5) 5.9 % EOS % (test code = 713-8) 2.8 % BASO % (test code = 706-2) 0.5 % GRAN MAT x10^3(ANC) (test code = 8239879442) 5.43 10*3/uL 1.88-7.09 IMM GRAN x10^3 (test code = 1950531497) 0.00-0.06 LYMPH x10^3 (test code = 731-0) 2.85 10*3/uL 1.32-3.29 MONO x10^3 (test code = 742-7) 0.54 10*3/uL 0.33-0.92 EOS x10^3 (test code = 711-2) 0.26 10*3/uL 0.03-0.39 BASO x10^3 (test code = 704-7) 0.05 10*3/uL 0.01-0.07 Lab Interpretation (test code = 19411-3) Abnormal [facility] WITH [id number] 05:04:15* Test Item Value Reference Range Interpretation Comme nts WBC (test code = 6690-2) 9.14 See_Comment [Automated [employer]] The system which generated this result transmitted reference range: 4.30 - 11.10 10*3/?L. The reference range was not used to interpret this result as normal/abnormal. RBC (test code = 789-8) 4.95 See_Comment [Automated [employer]] The system which generated this result [...] 32.5 g/dL 31.6-35.1 RDW-SD (test code = 99300-3) 43.6 fL 39.0-49.9 RDW-CV (test code = 788-0) 12.8 % 12.0-15.5 PLT (test code = 777-3) 326 See_Comment [Automated [employer]] The system which generated this result transmitted reference range: 166 - 358 10*3/?L. The reference range was not used to interpret this result as normal/abnormal. MPV (test code = 87107-6) 10.1 fL 9.5-12.9 NRBC/100 WBC (test code = 4634375461) 0.0 See_Comment [Automated [employer]] The system which generated this result transmitted reference range: 0.0 - 10.0 /100 WBCs. The reference range was not used to interpret this result as normal/abnormal. NRBC x10^3 (test code = 0542478166) See_Comment [Automated [employer] ge] The system which generated this result transmitted reference range: 10*3/?L. The reference range was not used to interpret this result as normal/abnormal. GRAN MAT (NEUT) % (test code = 770-8) 59.5 % IMM GRAN % (test code = 9869602934) 0.10 % LYMPH % (test code = 736-9) 31.2 % MONO % (test code = 5905-5) 5.9 % EOS % (test code = 713-8) 2.8 % BASO % (test code = 706-2) 0.5 % GRAN MAT x10^3(ANC) (test code = 2911005135) 5.43 10*3/uL 1.88-7.09 IMM GRAN x10^3 (test code = 0385466040) 0.00-0.06 LYMPH x10^3 (test code = 731-0) 2.85 10*3/uL 1.32-3.29 MONO x10^3 (test code = 742-7) 0.54 10*3/uL 0.33-0.92 EOS x10^3 (test code = 711-2) 0.26 10*3/uL 0.03-0.39 BASO x10^3 (test code = 704-7) 0.05 10*3/uL 0.01-0.07 Lab Interpretation (test code = 29411-3) Abnormal [facility] WITH [id number] 05:04:15* Test Item Value Reference Range Interpretation [...] 32.5 g/dL 31.6-35.1 RDW-SD (test code = 45896-7) 43.6 fL 39.0-49.9 RDW-CV (test code = 788-0) 12.8 % 12.0-15.5 PLT (test code = 777-3) 326 See_Comment [Automated [employer]] The system which generated this result transmitted reference range: 166 - 358 10*3/?L. The reference range was not used to interpret this result as normal/abnormal. MPV (test code = 38039-7) 10.1 fL 9.5-12.9 NRBC/100 WBC (test code = 9719841011) 0.0 See_Comment [Automated [employer]] The system which generated this result transmitted reference range: 0.0 - 10.0 /100 WBCs. The reference range was not used to interpret this result as normal/abnormal. NRBC x10^3 (test code = 4031301970) See_Comment [Automated [employer]] The system which generated this result transmitted reference range: 10*3/?L. The reference range was not used to interpret this result as normal/abnormal. GRAN MAT (NEUT) % (test code = 770-8) 59.5 % IMM GRAN % (test code = 0414484449) 0.10 % LYMPH % (test code = 736-9) 31.2 % MONO % (test code = 5905-5) 5.9 % EOS % (test code = 713-8) 2.8 % BASO % (test code = 706-2) 0.5 % GRAN MAT x10^3(ANC) (test code = 9373524321) 5.43 10*3/uL 1.88-7.09 IMM GRAN x10^3 (test code = 7850388885) 0.00-0.06 LYMPH x10^3 (test code = 731-0) 2.85 10*3/uL 1.32-3.29 MONO x10^3 (test code = 742-7) 0.54 10*3/uL 0.33-0.92 EOS x10^3 (test code = 711-2) 0.26 10*3/uL 0.03-0.39 BASO x10^3 (test code = 704-7) 0.05 10*3/uL 0.01-0.07 Lab Interpretation (test code = 70834-4) Abnormal [facility], [id number] 14:10:00 * Test Item Value Reference Range [...] used to interpret this result as normal/abnormal. [facility] 1 IgG and IgM panel - [id number] 19:14:00* Test Item Value Reference Range Interpretation Comme nts beta 2 glyco,IgG (test code = beta 2 glyco,IgG) <9 0-20 beta 2 glyco,IgA (test code = beta 2 glyco,IgA) <9 0-25 beta 2 glycoprot,IgM (test c ode = beta 2 glycoprot,IgM) <9 0-32 [facility] IgG and IgM panel - [id number] 19:14:00 * Test Item Value Reference Range Interpretation Comme nts anticardiolipin Ab IgG (test code = anticardiolipin Ab IgG) <9 0-14 anticardiolipin Ab IgM (test code = anticardiolipin Ab IgM) <9 0-12 [facility]Pap w/rfx HPV if ASCUS+leukorrhea panel rfx vance [...] (test code = vance - swab) normal [facility] CountyUrinalysis macro (dipstick) panel - [id number] 09:40:09* Test Item Value Reference Range Interpretation Comme nts Leukocytes (test code = Leukocytes) Trace Nitrite (test code = Nitrite) negative Urobilinogen (test code = Urobilinogen) .2 Protein (test code = Protein) Negative pH (test code = pH) 5.5 Blood (test code = Blood) Negative Specific Saluda (test code = Specific [place]) 1.030 Ketone (test code = Ketone) Negative Bilirubin (test code = Bilirubin) Small Glucose (test code = Glucose) Negative Appearance (test code = Appearance) Cloudy Color (test code = Color) Yellow [facility] - cancer history assessment [id number] 08:33:00 * Test Item Value Reference Range Interpretation Comme nts [facility] [place] history assessment result (test code = [facility] - cancer history assessment result) does not meet criteria [facility] + NG + TV, DNA, urine/[id number] 00:00:00* Test Item Value Reference Range Interpretation Comme nts vance - swab (test code = vance - swab) normal gardnerella (test code = gardnerella) abnormal A CT/NG (test code = CT/NG) normal trichomonas vaginalis addon - swab (test code = trichomonas vaginalis addon - swab) normal [facility]inal[facility] macro (dipstick) panel - [id number] 14:03:06* Test Item Value Reference Range Interpretation Comme nts Leukocytes (test code = Leukocytes) Negative Nitrite (test code = Nitrite) negative Urobilinogen (test code = Urobilinogen) .2 Protein (test code = Protein) Negative pH (test code = pH) 6.0 Blood (test code = Blood) Negative Specific Sal[place] (test code = Specific [place]) 1.030 Ketone (test code = Ketone) Negative Bilirubin (test code = Bilirubin) Negative Glucose (test code = Glucose) Negative Appearance (test code = Appearance) Clear Color (test code = Color) Yellow [facility] CountyPO[facility] [id number] 20:02:00* Test Item Value Reference Range Interpretation Comme nts POCT PREG (test code = 1605) Negative On board controls acceptable with C Line (test code = 3574) Yes POCT PREG LOT # (test code = 3575) POCT PREG TEST DATE ( test code = 3576) [facility] Notes Date/Time Note Provider Source 2024-12-05 18:25:18 Registration called and said patient left because she was not getting and ultrasound. Patient eloped after being seen by provider. ISTRY DEPARTMENT CHAIR George Fajardo RN [facility] 2024-05-16 15:57:40 Called patient, notified patient positive for UTI, BV, and Yeast. Educated patient on medications, good perineal hygiene, and increasing fluids. Pt verbalized understanding. ISA GARCIA RN 05/16/2024 3:57 PM Isa Garcia RN [facility] 2024-05-16 14:34:04 Please call patient and let her know she has UTI, BV, and vaginal yeast. All erx sent. [facility] 2024-04-09 00:17:00 [facility] Hospitalist History Physical REPORT#:[id number] REPORT STATUS: Signed REPORT INITIALIZATION DATE:04/09/24 TIME: 16 PATIENT: DEREK GARCIA UNIT #: [id number] ROOM/BED: : 95 AGE: 28 SEX: F ATTEND: Flor Rouse MD ADM DT: AUTHOR: Rosaline Goss MD REPT SERVICE DT/TIME: 04/09/247 * ALL edits or amendments must be made on the electronic/computer document * History of Present Illness HPI Chief complaint: Suspected ectopic HPI: 28 y/o presents as a self transported transport for evaluation of a suspected right ectopic . Patient presented to [facility] in [facility] with a positive test and RLQ pain. [...] % (Auto) (14.5 - 29.7 %) 20.5 Jerauld % (Auto) (3.6 - 10.2 %) 6.7 Eos % (Auto) (0.0 - 3.0 %) 1.3 Baso % (Auto) (0.1 - 0.9 %) 0.3 Neut # (Auto) (K/mm3) 8.6 Lymph # (Auto) (K/mm3) 2.5 Jerauld # (Auto) (K/mm3) 0.8 Eos # (Auto) (K/mm3) 0.16 Baso # (Auto) (K/mm3) 0.0 Laboratory Tests 04/08 2201 Miscellaneous Maternal Serum HCG (mIU/mL) 2719 Laboratory Tests 04/08 2201 Urines Urine Color (YELLOW) YELLOW Urine Appearance (CLEAR) Slightly-Cloudy Urine pH (5 - 9) 5.0 Ur Specific [place] (1.001 - 1.035) 1.023 Urine Protein (NEG) [...] the myometrium. Impression By: Cuca Hall M.D. Diagnosis, Assessment Plan Problem List/A [...] treat with the Methotrexate. at 0028 RPT #:[id number] END OF REPORT [facility] 2024-04-08 22:01:00 [facility] ([facility]) EMERGENCY PROVIDER REPORT REPORT#:[id number] REPORT STATUS: Signed DATE:04/08/24 TIME: 2200 PATIENT: DEREK GARCIA UNIT #: [id number] ROOM/BED: AGE: 28 SEX: F PCP PHYS: yLndon Billings MD SERVICE AUTHOR: Flor Rouse MD [...] G6, P0 who transferred from [facility] due to concerns of ectopic . The [...] Result Date Time Pulse Ox 98 04/09 118 B/P 123/70 04/09 118 B/P Mean 87 04/09 118 O2 Delivery Room air 04/09 118 Temp 98.0 04/09 118 Pulse 79 04/09 118 Resp 16 04/09 118 Review of Vital Signs Reviewed Focused PE [...] % (Auto) (14.5 - 29.7 %) 20.5 Jerauld % (Auto) (3.6 - 10.2 %) 6.7 Eos % (Auto) (0.0 - 3.0 %) 1.3 Baso % (Auto) (0.1 - 0.9 %) 0.3 Neut # (Auto) (K/mm3) 8.6 Lymph # (Auto) (K/mm3) 2.5 Jerauld # (Auto) (K/mm3) 0.8 Eos # (Auto) (K/mm3) 0.16 Baso # (Auto) (K/mm3) 0.0 Miscellaneous Maternal Serum HCG (mIU/mL) 2719 Urines Urine Color (YELLOW) YELLOW Urine Appearance (CLEAR) Slightly-Cloudy Urine pH (5 - 9) 5.0 Ur Specific [place] (1.001 - 1.035) 1.023 Urine Protein (NEG) [...] understanding of the plan Time of Re-Eval 816 )( Re-Eval Status Unchanged ED Course Medication(s) [...] Consultation Consultation Referral/Consult Name Rosaline Goss MD Tail Trimmer Called LEARNING STRATEGIST Tail Trimmer Discussed with managed security sales consultant Requested Call Time 2350 Requested Call Date 04/08/24 Call Returned Call returned Call Returned Time 235 Call Returned Date 04/08/24 Differential Diagnosis )( Differential Diagnosis Acute abdominal pain, Cholecystitis, Cholelithiasis, Constipation, Ectopic preg ruptured, Ectopic , Endometriosis, Foreign body, Intrauterine , Ovarian cyst, Ovarian torsion Patient Discharge Departure Vital Signs/Condition Vital Signs First Documented: Result Date Time Pulse Ox 97 04/08 214 B/P 121/79 04/08 214 B/P Mean 93 04/08 2143 O2 Delivery Room air 04/08 2143 Temp 99.0 04/08 2143 Pulse 85 04/08 214 Resp 17 04/08 2143 Last Documented: Result Date Time Pulse Ox 98 04/09 0118 B/P 123/70 04/09 0118 B/P Mean 87 04/09 0118 O2 Delivery Room air 04/09 0118 Temp 98.0 04/09 0118 Pulse 79 04/09 0118 Resp 16 04/09 0118 All vital signs available at the time of this entry have been reviewed. Condition Stable Clinical Impression Clinical Impression Primary Impression: Ectopic Disposition Decision Discharge )( Discharged to Home Yes )( Time 0112 )( Date 04/09/24 Discharge/Care Plan Counseled Regarding [...] or a call to 911. at 0523 RPT #:[id number] END OF REPORT [facility] 2023-10-24 13:00:00 Addended by: RADHA JAMES on: 10/25/2023 03:51 PM Modules accepted: Orders [facility]
[2024-12-05 20:47] LABS: Absolute Eosinophils 0.2 K/uL (0-0.5); Absolute Lymphocytes (CBC) 3.3 K/uL (0.7-4.9); Absolute Monocytes 0.8 K/uL (0.1-1.3); Basophils % 0.4 % (0-1.3); Eosinophils % 1.3 % (0-4.4); Hematocrit 40.9 % (36.0-45.0); Hemoglobin 13.7 g/dL (12.0-15.0); Lymphocytes % 26.8 % (15.3-44.8); MCH 30.4 pg (27.0-35.0); MCHC 33.4 g/dL (32.0-36.0); MCV 91.1 fL (80-100); MPV 7.5 fL (7.6-11.3); Monocytes % 6.6 % (3.3-12.3); Neutrophils % 64.9 % (41.7-73.7); Nucleated Red Blood Cells % 0.2 % (0-0); Platelets 301 thou/uL (152-406); RBC Red Blood Cell Count 4.49 M/uL (3.86-4.86); Red Cell Distribution Width 13.9 % (12.1-15.2)
[2024-12-05 20:47] LABS: Specific Gravity < 1.005 (1.005-1.030)
[2024-12-05 20:49] LABS: Specific Gravity < 1.005 (1.005-1.030); Sqamous Epithelial <5 /HPF (None Seen); Urine Bacteria <20 /HPF (<20); Urine Bilirubin NEGATIVE (Negative); Urine Blood Trace (Negative); Urine Clarity Extremely Turbid (Clear); Urine Color Colorless (Yellow); Urine Crystals Unidentified Few /HPF (None Seen); Urine Culture Reflex Order NOT NEEDED; Urine Glucose NEGATIVE (Negative); Urine Ketones NEGATIVE (Negative); Urine Microscopic Reflex YN ORDER UMIC; Urine Nitrite NEGATIVE (Negative); Urine Protein NEGATIVE (Negative); Urine RBC <5 /HPF (None Seen); Urine Urobilinogen Normal (Normal); Urine WBC <5 /HPF (<5); Urine Yeast (Budding) Trace /HPF (None Seen); Urine pH 5.5 (5.0-7.0)
--- NOTE | 2024-12-05 21:06 | RAD REPORT ---
EXAMINATION: US FIRST TRIMESTER TRANSVAGINAL WITH DOPPLER CLINICAL INDICATION: with pelvic pain TECHNIQUE: Real-time obstetrical ultrasonography of the maternal pelvis and first trimester was performed transvaginally. Color and spectral Doppler evaluation of the ovaries was performed. COMPARISON: December 03, 2024. FINDINGS: The uterus measures 8 x 5 x 6 cm A gestational sac is present within the endometrium measuring 1.6 cm a pole is present measurin g 4 mm. Cardiac activity 111 bpm.. Very small subchorionic, hemorrhage Right ovary normal in size and echotexture Left ovary normal in size and echotexture Right and left adnexa unremarkable No significant free fluid IMPRESSION: Single live intrauterine with an estimated gestational age 6 weeks 2 days THOMAS 07/29/2025
--- NOTE | 2024-12-05 21:31 | ER ---
Nurse's Notes [facility] Name: Beena Garcia Age: 29 yrs Sex: Female : 1995 Arrival Date: 12/05/2024 Time: 18:51 Bed IW1 Private MD: Diagnosis: Candidiasis of other urogenital sites;6 weeks gestation of Presentation: 12/05 19:18 Chief complaint: Patient states: c/o possible yeast infection or start of miscarriage. al5 states about 2-3 weeks ago, went to the clinic for yeast infection and was given a pink pill there and was sent home. states it never helped. last Sunday found out she is . about 2 days ago was spotting pinkish red along with discharge, today has been having discharge along with possibly spotting brown, states she cannot differentiate if its due to the discharge or if she is starting to have a miscarriage. 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 also has been having some abdominal cramping. Coronavirus screen: At this time, the client does not indicate any symptoms associated with coronavirus-19. Ebola Screen: No symptoms or risks identified at this time. Initial Sepsis Screen: Does the patient meet any 2 criteria? No. Patient's initial sepsis screen is negative. Does the patient have a suspected source of infection? No. Patient's initial sepsis screen is negative. Risk Assessment: Do you want to hurt yourself or someone else? Patient reports no desire to harm self or others. Onset of symptoms was December 03, 2024. 19:18 Method Of Arrival: Ambulatory al5 19:18 Acuity: LETTY 3 al5 Triage Assessment: 19:23 General: Appears in no apparent distress. comfortable, Behavior is calm, cooperative. al5 Pain: Complains of pain in suprapubic area, right lower quadrant and left lower quadrant. EENT: No signs and/or symptoms were reported regarding the EENT system. Neuro: Level of Consciousness is awake, alert, obeys commands, Oriented to person, place, time, situation. Cardiovascular: Capillary refill < 3 seconds Patient's skin is warm and dry. Respiratory: Airway is patent Respiratory effort is even, unlabored, Respiratory pattern is regular, symmetrical. GI: No signs and/or symptoms were reported involving the gastrointestinal system. Abdomen is non-distended. : Reports vaginal bleeding that is brown, spotty, has been having clumpy discharge. Derm: Skin is intact, is healthy with good turgor, Skin is pink, warm \T\ dry. normal. Musculoskeletal: No signs and/or symptoms reported regarding the musculoskeletal system. 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 - Infectious Disease History:: Denies. - Social history:: Smoking status: Patient denies any tobacco usage or history of. Screenin:25 [facility] ED Fall Risk Assessment (Adult) History of falling in the last 3 months, al5 including since admission No falls in past 3 months (0 pts) Confusion or Disorientation No (0 pts) Intoxicated or Sedated No (0 pts) Impaired Gait No (0 pts) Mobility Assist Device Used No (0 pt) Altered Elimination No (0 pt) Score/Fall Risk Level 0 - 2 = Low Risk Oriented to surroundings, Maintained a safe environment, Hourly rounding (assess needs \T\ fall precautionary measures) done. Abuse screen: Denies threats or abuse. Denies injuries from another. Nutritional screening: No deficits noted. Tuberculosis screening: No symptoms or risk factors identified. Assessment: 19:25 Reassessment: see triage assessment. al5 22:43 Reassessment: provider with patient in triage room. patient explained discharge by al5 provider and was allowed to ask any questions. patient verbalized understanding. patient to be discharged home. Vital Signs: 19:18 BP 127 / 71; Pulse 80; Resp 16; Temp 98.3; Pulse Ox 100% on R/A; Weight 74.39 kg; al5 Height 5 ft. 1 in. ; Pain 2/10; 19:18 Body Mass Index 30.99 (74.39 kg, 154.94 cm) al5 19:18 Pain Scale: Adult al5 Vitals: 22:45 Heart Tones 111 per ultrasound. al5 ED Course: 18:55 Patient arrived in ED. im 19:13 Irene Izaguirre PA-C is PHCP. sb4 19:13 Nikhil Agustin MD is Attending Physician. sb4 19:23 Triage completed. al5 19:24 Arm band placed on right wrist. Patient placed in waiting room, in view of staff al5 members, Patient notified of wait time. 19:25 Patient has correct armband on for positive identification. Provided Education on: plan al5 of care. 20:35 Inserted saline lock: 20 gauge in left antecubital area, using aseptic technique. Blood sa1 collected. Flushed with 10 mL NS. 20:42 Initial lab(s) drawn, by me, sent to lab. Urine collected: clean catch specimen, clear. sa1 20:43 Basic Metabolic Panel Sent. sa1 20:43 Urinalysis w/ reflexes Sent. sa1 20:43 CBC with Diff Sent. sa1 20:43 Test, Urine Sent. sa1 21:02 US Transvaginal Ob In Process Unspecified. EDMS 22:43 Leny Lawson, RN is Primary Nurse. al5 22:45 No provider procedures requiring assistance completed. IV discontinued, intact, al5 bleeding controlled, No redness/swelling at site. Pressure dressing applied. Administered Medications: No medications were administered Medication: 19:25 VIS not applicable for this client. al5 Point of Care Testing: Urine : 22:45 hCG Reading: Positive; al5 Outcome: 21:30 Discharge ordered by MD. sb4 22:45 Discharged to home ambulatory, with significant other, al5 22:45 Condition: good 22:45 Discharge instructions given to patient, Instructed on discharge instructions, follow up and referral plans. medication usage, Demonstrated understanding of instructions, follow-up care, medications, Prescriptions given X 1, 22:46 Patient left the ED. al5 Signatures: Dispatcher [employer] EDGA Irene Izaguirre PA-C PA-C sb4 Annette Basilio Leny Lawson, RN RN al5 Sultan Yadi sa1 Corrections: (The following items were deleted from the chart) 19:23 19:23 PMHx: miscarriage; al5 al5
--- NOTE | 2024-12-05 21:31 | EDPHYS ---
Physician Documentation [facility] Name: Beena Garcia Age: 29 yrs Sex: Female : 1995 Arrival Date: 12/05/2024 Time: 18:51 Bed IW1 Private MD: ED Physician Nikhil Agustin HPI: 12/05 22:45 This 29 yrs old Female presents to ER via Ambulatory with complaints of sb4 Vaginal Bleeding, + Preg <12wks. 22:45 The patient presents to the emergency department with vaginal discharge. The estimated sb4 gestational age is 6 weeks. 12/06 00:29 patient states she had a yeast infection about 2 weeks ago, was given fluconazole. sb4 found out she was 2 days later. the past few days, she has had vaginal discharge- some brown, some white. has had several miscarriages so wanted to be checked. denies any abd pain/cramping. 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 - Infectious Disease History:: Denies. - Social history:: Smoking status: Patient denies any tobacco usage or history of. ROS: 12/06 00:29 Constitutional: Negative for fever, chills, and weight loss, sb4 : Positive for vaginal discharge, All other systems are negative, Exam: 00:29 Constitutional: This is a well developed, well nourished patient who is awake, alert, sb4 and in no acute distress. Head/Face: Normocephalic, atraumatic. Eyes: Extra-ocular motions intact. Periorbital areas with no swelling, redness, or edema. ENT: Mucous membranes moist. Respiratory: No increased work of breathing, no retractions or nasal flaring. Skin: Warm, dry with normal turgor. Normal color with no rashes, no lesions, and no evidence of cellulitis. Vital Signs: 12/05 19:18 BP 127 / 71; Pulse 80; Resp 16; Temp 98.3; Pulse Ox 100% on R/A; Weight 74.39 kg; al5 Height 5 ft. 1 in. ; Pain 2/10; 19:18 Body Mass Index 30.99 (74.39 kg, 154.94 cm) al5 19:18 Pain Scale: Adult al5 MDM: 19:25 Medical Screening Exam initiated sb4 12/06 00:31 Data reviewed: vital signs, nurses notes, lab test result(s), radiologic studies, and sb4 as a result, I will discharge patient. Counseling: I had a detailed discussion with the patient and/or guardian regarding the historical points, exam findings, and any diagnostic results supporting the discharge/admit diagnosis, lab results, radiology results, the need for outpatient follow up, an OB/Gyne specialist, to return to the emergency department if symptoms worsen or persist or if there are any questions or concerns that arise at home. 12/05 19:25 Order name: Basic Metabolic Panel; Complete Time: 21:29 sb4 12/05 19:25 Order name: CBC with Diff; Complete Time: 20:49 sb4 12/05 19:25 Order name: Test, Urine; Complete Time: 20:47 sb4 12/05 19:25 Order name: Quantitative Hcg; Complete Time: 21:29 sb4 12/05 19:25 Order name: Urinalysis w/ reflexes; Complete Time: 20:50 sb4 12/05 19:25 Order name: US Transvaginal Ob; Complete Time: 21:08 sb4 12/05 19:25 Order name: IV Saline Lock; Complete Time: 20:43 sb4 12/05 19:25 Order name: Labs collected and sent; Complete Time: 20:43 sb4 Administered Medications: No medications were administered Point of Care Testing: Urine : 12/05 22:45 hCG Reading: Positive; al5 Disposition Summary: 12/05/24 21:30 Discharge Ordered Notes: Location: Home sb4 Problem: new sb4 Symptoms: have improved sb4 Condition: Stable sb4 Diagnosis - Candidiasis of other urogenital sites sb4 - 6 weeks gestation of sb4 Followup: sb4 - With: Private Physician - When: 1 week - Reason: Recheck today's complaints, Re-evaluation by your physician Discharge Instructions: - Discharge Summary Sheet sb4 - Vaginal Yeast Infection, Adult sb4 Forms: - Patient Portal Instructions sb4 - Leadership Thank You Letter sb4 Prescriptions: - Nystatin Vaginal Inserts 100,000 UNITS - insert 1 applicatorful VAGINAL route daily for 14 days; 14 Applicator; Refills: sb4 0, Product Selection Permitted Addendum: 12/07/2024 09:53 Co-signature as Attending Physician, Nikhil Agustin MD I agree with the assessment and c do plan of care. Signatures: Dispatcher [employer] EDMS Nikhil Agustin MD MD cha Brown, Sophia, PA-C PA-C sb4 Leny Lawson, RN RN al5 Corrections: (The following items were deleted from the chart) 12/05 19:23 19:23 PMHx: miscarriage; al5 al5 19:26 19:26 BASIC METABOLIC PANEL+C.LAB.BRZ ordered. EDMS EDMS 19:26 19:26 CBC+H.LAB.BRZ ordered. EDMS EDMS 19:26 19:26 Test, Urine+UC.LAB.BRZ ordered. EDMS EDMS 19:26 19:26 QUANTITATIVE HCG+C.LAB.BRZ ordered. EDMS EDMS 19:26 19:26 Urinalysis+U.LAB.BRZ ordered. EDMS EDMS 19:26 19:26 Transvaginal Ob+US.RAD.BRZ ordered. EDMS EDMS
[2024-12-05 23:04] VITALS: BP 127/71; TEMP 98.3; O2SAT 100
== END 2024-12-05 22:46 | disposition home or self-care (01) ==
LOC: ER 18:51
DX: O98.811 Other maternal infectious and parasitic diseases complicating pregnancy, first trimester (principal); B37.49 Other urogenital candidiasis; Z3A.01 Less than 8 weeks gestation of pregnancy
CPT/HCPCS: 36415; 76817; 80048; 81001; 81025; 84702; 85025; 99284

== ENCOUNTER 2024-12-12 16:19 | Emergency (ER) | payer OTHER ==
--- NOTE | 2024-12-12 17:16 | RAD REPORT ---
EXAM: Transvaginal OB HISTORY: VAGINAL BLEEDING COMPARISON: 12/05/2024 TECHNIQUE: Multiple grayscale and color Doppler images were obtained in a transvaginal pelvic ultraso und. Spectral analysis of the Doppler waveforms of the ovaries were performed. FINDINGS: UTERUS: There is an intrauterine gestational sac. This contains a yolk sac and pole. [place]-rump length: 1 cm which estimates gestational age at 7 week 0 day. A heart rate is detected at 142 bpm. Small subchorionic hemorrhage. No free fluid is seen in the pelvis. RIGHT OVARY: Normal flow without focal mass. LEFT OVARY: Nonvisualized. IMPRESSION: Single live intrauterine with estimated age of 7 week 0 day. Small subchorionic hemorrhage which is typically of little significance.
--- NOTE | 2024-12-12 17:18 | EDPHYS ---
Physician Documentation [facility] Name: Beena Garcia Age: 29 yrs Sex: Female : 1995 Arrival Date: 12/12/2024 Time: 16:19 Bed Waiting Private MD: ED Physician Eduard Grady MDM: 12/12 17:17 ED course: Patient signed in and prior to me seeing her she told registration that she rn changed her mind and is not going to be evaluated, left prior to triage. Called her multiple times and did not answer.. 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 EDME EDME 17:17 16:31 Medical Screening Exam initiated rn rn
== END 2024-12-12 17:24 | disposition left against medical advice (07) ==
LOC: ER 16:19
DX: Z53.21 Procedure and treatment not carried out due to patient leaving prior to being seen by health care provider (principal)
CPT/HCPCS: 76817

== ENCOUNTER 2024-12-23 18:22 | Emergency (ER) | payer OTHER ==
--- OUTSIDE RECORDS SUMMARY | 2024-12-23 18:45 | XMS REPORT | Continuity of Care Document ---
Author Name Unknown Address [address] [facility]. [address] [place] [id number] [facility] Address [address] [facility] [address] [place] [address] Care Team Providers Care Safe And Vault Mechanic Name Role Phone STEPHANIE HICKS Primary Care Physician Unav ailable ALTAGRACIA WHITLEY Attending Clinician Unavailable ALTAGRACIA WHITLEY Attending Clinician Unavailable JAD PADRON Attending Clinician Unavailable Altagracia Whitley MD Attending Clinician [phone], [facility] Attending Clinician Unavailable STEPHANIE HICKS Attending Clinician Unavail able MARCUS MCKEON Attending Clinician Unavail able MARCUS MCKEON Attending Clinician Unavail able Marcus Mckeon MD Attending Clinician [phone] ENA SMALL Attending Clinician Unavaila Shelby Tavarez Attending Clinician [phone] SHELBY MERCER Attending Clinician Unavailable Stephanie Parisi Attending Clinician + Ena Small CNM Attending Clinician [phone] Stephanie Parisi Attending Clinician + Flor Rouse Attending Clinician Unavailable ELISE HERNANDEZ Attending Clinician Unavailyarelis Blunt Attending Clinician Unavailable JANE TITUS Attending Clinician Unavailable UNKNOWN, ATTENDING Attending Clinician Unavailab daya JAMES RADHA Attending Clinician Unavailable Radha James PA-C Attending Clinician [phone] Unknown, Attending Attending Clinician Unavailab [place] Doctor Unassigned, [place] Attending Clinician U IVY Pabon Attending Clinician UnavailVELIA Mcduffie Attending Clinician Unavailable RICHARD AMAYA Attending Clinician UnavailKARLA Ivory Attending Clinician Unavailyarelis Barreto, [facility] Attending Clinician Unavailable Ida Marroquin Attending Clinician [phone] Richard Machuca Attending Clinician UnaPardeep Smart DO Attending Clinician [phone] IDA VARELA Attending Clinician Lyndon Martell Admitting Clinician Unavailab St Admitting Clinician Unavailable Payers Payer Name Policy Type Policy Number Effective Date Expirati on Date Source [place] [employer] [id number] 2022 00:00:00 [facility] [id number] 2023 00:00:00 [facility] (MEDICAID HMO) [id number] 2016 00:00:00 MEDICAID PENDING PENDING 2021 00:00:00 [id number] 2017 00:00:00 Problems Condition Name Condition Details Condition Category Status Onset Date Resolution Date Last Treatment Date Treating Clinician Comments Source Obesity in Obesity in Disease Active 2-27 00:00: 00 [facility] Excessive weight gain Excessive weight gain Disease Active 2-27 00:00: 00 [facility] of left fallopian tube of Left Fallopian Tube Problem Active 01-31 00:00: 00 [facility] High risk due to recurrent loss High Risk Due to Recurrent Loss Problem Active 4-03 00:00: 00 [facility] History of abnormal cervical Pap smear History of abnormal cervical Pap smear Disease Active 5- 00:00: 00 Overview: Formattin g of this note might be different from the original. 2016 Negative PAP [id number] Negative PAP +[id number] Negative PAP +HPV, negative [id number] Negative PAP and [id number] Negative PAP and [id number] pending [facility] Encounter for other contracept rishi management Encounter for other contracept rishi management Disease Resolve d 05-13 00:00: 00 2024-12-18 00:00:00 2024-12-18 11:17:12 [facility] Over weight Over weight Disease Resolve d 05-13 00:00: 00 2024-12-18 00:00:00 2024-12-18 11:17:14 [facility] Other general counseling and advice for contracept rishi management Other general counseling and advice for contracept rishi management Disease Resolve d 03-31 00:00: 00 2024-05-13 00:00:00 2024-05-13 13:17:52 [facility] Over weight Over weight Disease Resolve d 2016-10 00:00: 00 2024-05-13 00:00:00 2024-05-13 13:17:50 [facility] Cyst of right ovary Cyst of right ovary Disease Resolve d 04-13 00:00: 00 2023-03-03 00:00:00 2023-03-03 12:56:01 [facility] Susceptibl e to varicella (non-immun e), currently Susceptibl e to varicella (non-immun e), currently Disease Resolve d 03-23 00:00: 00 2022-03-31 00:00:00 2022-03-31 16:16:07 [facility] Rubella non-immune status, antepartum Rubella non-immune status, antepartum Disease Resolve d 03-23 00:00: 00 2022-03-31 00:00:00 2022-03-31 16:16:09 [facility] High-risk in first trimester High-risk in first trimester Disease Active 6- 00:00: 00 2022-03-31 00:00:00 2022-03-31 16:16:10 [facility] History of miscarriag e History of miscarriag e Disease Resolve d 6-01 00:00: 00 2022-03-31 00:00:00 2022-03-31 16:16:11 [facility] Vaginal bleeding in Vaginal bleeding in Disease Resolve d 6-01 00:00: 00 2022-03-31 00:00:00 2022-03-31 16:16:05 [facility] Dysuria Dysuria Disease Resolve d 5-05 00:00: 00 2021-03-22 00:00:00 2021-03-22 16:30:58 [facility] Maternal varicella, non-immune Maternal varicella, non-immune Disease Resolve d 3-23 00:00: 00 2021-03-22 00:00:00 2021-03-22 16:31:00 [facility] Screening examinatio n for STD (sexually transmitte d disease) Screening examinatio n for STD (sexually transmitte d disease) Disease Resolve d 3-16 00:00: 00 2021-03-22 00:00:00 2021-03-22 16:31:03 [facility] UTI symptoms UTI symptoms Disease Resolve d 3-16 00:00: 00 2021-03-22 00:00:00 2021-03-22 16:31:05 [facility] Contracept rishi management Contracept rishi management Disease Resolve d 2016-10 00:00: 00 2021-03-22 00:00:00 2021-03-22 16:30:57 [facility] Miscarriag e Miscarriag e Disease Resolve d 11-10 00:00: 00 2017-09-21 00:00:00 2017-09-21 14:05:51 [facility] Other general counseling and advice for contracept rishi management Other general counseling and advice for contracept rishi management Disease Resolve d - 00:00: 00 2017-09-21 00:00:00 2017-09-21 14:05:51 [facility] Missed Missed Disease Resolve d 2015-10-19 00:00: 00 2017-09-21 00:00:00 2017-09-21 14:05:50 [facility] Rubella non-immune status, antepartum Rubella non-immune status, antepartum Disease Resolve d 2015-10 00:00: 00 2017-09-21 00:00:00 2017-09-21 14:05:49 [facility] Supervisio n of high risk , antepartum Supervisio n of high risk , antepartum Disease Resolve d 2015-10 00:00: 00 2017-09-21 00:00:00 2017-09-21 14:05:47 [facility] Flu vaccine need Flu vaccine need Disease Resolve d 2015-10 00:00: 00 2017-09-21 00:00:00 2022-05-07 00:43:11 [facility] Surveillan ce of previously prescribed contracept rishi pill Surveillan ce of previously prescribed contracept rishi pill Disease Resolve d 03-30 00:00: 00 2016-09-06 00:00:00 2016-09-06 11:18:49 [facility] Allergies, Adverse Reactions, Alerts Allergy Name Allergy Type Status Severity Reaction(s) Onset Date Inactive Date Treating Clinician Comments Source codeine DA Active SV HIVES 04-08 00:00: 00 [facility] Codeine Propensi ty to adverse reaction s Active Hives 02-27 00:00: 00 [facility] CODEINE DRUG INGREDI Active Hives 02-27 00:00: 00 [facility] Codeine Allergy to substanc e Active [facility] Social History Social Habit Start Date Stop Date Quantity Comments Source ASSERTION 2024-11-05 00:00:00 [facility] intake 2024-12-18 00:00:00 2024-12-18 00:00:00 Ex-drinker (finding) [facility] History of Social function 2024-05-13 00:00:00 2024-05-13 00:00:00 [facility] Alcohol intake 2023-11-13 00:00:00 2023-11-13 00:00:00 Current drinker of alcohol (finding) [facility] Exposure to SARS-CoV-2 (event) 2023-02-18 00:00:00 2023-02-28 06:11:00 Not sure [facility] Alcohol Comment 2023-02-28 00:00:00 2023-02-28 00:00:00 social [facility] Tobacco use and exposure 2022-06-21 00:00:00 2022-06-21 00:00:00 Smokeless tobacco non-user [facility] Sex assigned at 1995 00:00:00 1995 00:00:00 [facility] Smoking Status Start Date Stop Date Source Never smoked tobacco [facility] Medications Ordered Medication Name Filled Medication Name Start Date Stop Date Current Medication? Ordering Clinician Indication Dosage Frequency Signature (SIG) Comments Components Source Vit Comb.10-Iro n-FA 65-1 mg Tab 12-18 10:12: 20 Yes Take by mouth. [facility] progesteron e 200 mg capsule 12-18 00:00: [id number] 1 pill in vagina nightly until 12 weeks of gestation [facility] metroNIDAZO LE 500 mg tablet 11-19 00:00: 00 12-18 00:00 :00 No [id number] 500mg Take 1 tablet by mouth every 12 (twelve) hours. [facility] fluconazole 150 mg tablet 11-18 00:00: 00 12-18 00:00 :00 No [id number] 150mg Take 1 tablet by mouth every 3 (three) days. [facility] norgestimat e-ethinyl estradioL (ORTHO TRI-CYCLEN, 28,) 0.18/0.215/ 0.25 mg-35 mcg (28) tablet 2023-10 00:00: 00 12-18 00:00 :00 No [id number] 1{tbl} Take 1 tablet by mouth in the morning. [facility] Nitrofurant oin&Nit. Macrocryst (MACROBID) 100 mg capsule 05-16 00:00: 00 05-27 04:59 :00 No [id number] 100mg Take 1 capsule by mouth in the morning and 1 capsule in the evening. Do all this for 10 days. [facility] metroNIDAZO LE 500 mg tablet 05-15 00:00: 00 05-23 04:59 :00 No [id number] 500mg Take 1 tablet by mouth in the morning and 1 tablet in the evening. Do all this for 7 days. [facility] fluconazole (DIFLUCAN) 150 mg tablet 05-15 00:00: 00 05-16 04:59 :00 No [id number] 150mg Take 1 tablet by mouth once now for 1 dose. [facility] phentermine HCl (PHENTERMIN E ORAL) 05-13 12:58: 39 12-18 00:00 :00 No Take by mouth. [facility] norgestimat e-ethinyl estradioL (ORTHO TRI-CYCLEN, 28,) 0.18/0.215/ 0.25 mg-35 mcg (28) tablet 05-13 00:00: 00 09-15 00:00 :00 No [id number] 1{tbl} Take 1 tablet by mouth in the morning. [facility] cefdinir 300 mg capsule - 00:00: 00 05-13 00:00 :00 No [id number] 300mg Take 1 capsule by mouth every 12 (twelve) hours. [facility] fluconazole (DIFLUCAN) 150 mg tablet 1-04 00:00: 00 05-13 00:00 :00 No [id number] 150mg Take 1 tablet by mouth every 72 (seventy-t wo) hours. [facility] Nitrofurant oin&Nit. Macrocryst (MACROBID) 100 mg capsule 1-03 00:00: 00 05-13 00:00 :00 No [id number] 100mg Take 1 capsule by mouth in the morning and 1 capsule in the evening. [facility] fluconazole (DIFLUCAN) 150 mg tablet 03-02 00:00: 00 03-03 04:59 :00 No [id number] 150mg Take 1 tablet by mouth once now for 1 dose. Take second tablet in 1 week [facility] phentermine HCl (PHENTERMIN E ORAL) 02-28 08:20: 44 Yes Take by mouth. [facility] norgestimat e-ethinyl estradioL (ORTHO TRI-CYCLEN, 28,) 0.18/0.215/ 0.25 mg-35 mcg (28) tablet 07-07 00:00: 00 02-28 00:00 :00 No [id number] 1{tbl} Take 1 tablet by mouth in the morning. [facility] Nitrofurant oin&Nit. Macrocryst (MACROBID) 100 mg capsule 04-03 00:00: 00 02-28 00:00 :00 No [id number] 100mg Take 1 capsule by mouth 2 (two) times daily. [facility] PNV 67-iron ps-folate no.1-dha (VITAFOL ULTRA) 29 mg iron- 1 mg-200 mg Cap 03-22 00:00: 00 10-28 00:00 :00 No [id number] 1{each} Take 1 Each by mouth daily. [facility] norgestimat e-ethinyl estradioL 0.18/0.215/ 0.25 mg-25 mcg tablet 02-23 00:00: 00 10-28 00:00 :00 No [id number] 1{tbl} Take 1 tablet by mouth daily. [facility] ibuprofen 800 mg tablet Take 1 tablet every 6 hours by oral route as needed. ibuprofen 800 mg tablet Take 1 tablet every 6 hours by oral route as needed. No 1 Q6H ibuprofen 800 mg tablet Take 1 tablet every 6 hours by oral route as needed. [facility] Diflucan 100 mg tablet Take 1 tablet every day by oral route for 3 days. Diflucan 100 mg tablet Take 1 tablet every day by oral route for 3 days. No 1 Q1D Diflucan 100 mg tablet Take 1 tablet every day by oral route for 3 days. [facility] Immunizations Ordered Immunization Name Filled Immunization Name Date Status Comments Source HPV9 2019-09-10 00:00:00 Completed [facility] HPV9 2019-09-10 00:00:00 Completed [facility] HPV9 2019-09-10 00:00:00 Completed [facility] HPV9 2019-09-10 00:00:00 Completed [facility] HPV9 2019-09-10 00:00:00 Completed [facility] HPV9 2019-09-10 00:00:00 Completed [facility] HPV9 2019-09-10 00:00:00 Completed [facility] HPV9 2019-06-17 00:00:00 Completed [facility] HPV9 2019-06-17 00:00:00 Completed [facility] HPV9 2019-06-17 00:00:00 Completed [facility] HPV9 2019-06-17 00:00:00 Completed [facility] HPV9 2019-06-17 00:00:00 Completed [facility] HPV9 2019-06-17 00:00:00 Completed [facility] HPV9 2019-06-17 00:00:00 Completed [facility] Influenza Virus Vaccine Quad IM 3+ YRS 2016-09-06 00:00:00 Completed Influenza Virus Vaccine Quad IM 3+ YRS 2016-09-06 00:00:00 Completed [facility] Influenza Virus Vaccine Quad IM 3+ YRS 2016-09-06 00:00:00 Completed [facility] Influenza Virus Vaccine Quad IM 3+ YRS 2016-09-06 00:00:00 Completed [facility] Influenza Virus Vaccine Quad IM 3+ YRS 2016-09-06 00:00:00 Completed [facility] Influenza Virus Vaccine Quad IM 3+ YRS 2016-09-06 00:00:00 Completed [facility] Influenza Virus Vaccine Quad IM 3+ YRS 2016-09-06 00:00:00 Completed [facility] TDAP 2009-10-22 00:00:00 Completed [facility] TDAP 2009-10-22 00:00:00 Completed [facility] TDAP 2009-10-22 00:00:00 Completed [facility] TDAP 2009-10-22 00:00:00 Completed [facility] TDAP 2009-10-22 00:00:00 Completed [facility] TDAP 2009-10-22 00:00:00 Completed [facility] TDAP 2009-10-22 00:00:00 Completed [facility] HPV9 Unknown Completed [facility] TDAP Unknown Completed [facility] Influenza Virus Vaccine Quad IM 3+ YRS Unknown Completed [facility] HPV9 Unknown Completed [facility] TDAP Unknown Completed [facility] Influenza Virus Vaccine Quad IM 3+ YRS Unknown Completed [facility] HPV9 Unknown Completed [facility] TDAP Unknown Completed [facility] Influenza Virus Vaccine Quad IM 3+ YRS Unknown Completed [facility] HPV9 Unknown Completed [facility] TDAP Unknown Completed [facility] Influenza Virus Vaccine Quad IM 3+ YRS Unknown Completed [facility] HPV9 Unknown Completed [facility] TDAP Unknown Completed [facility] Influenza Virus Vaccine Quad IM 3+ YRS Unknown Completed [facility] HPV9 Unknown Completed [facility] TDAP Unknown Completed [facility] Influenza Virus Vaccine Quad IM 3+ YRS Unknown Completed [facility] HPV9 Unknown Completed [facility] TDAP Unknown Completed [facility] Influenza Virus Vaccine Quad IM 3+ YRS Unknown Completed [facility] HPV9 Unknown Completed [facility] TDAP Unknown Completed [facility] Influenza Virus Vaccine Quad IM 3+ YRS Unknown Completed [facility] HPV9 Unknown Completed [facility] TDAP Unknown Completed [facility] Influenza Virus Vaccine Quad IM 3+ YRS Unknown Completed [facility] HPV9 Unknown Completed [facility] TDAP Unknown Completed [facility] Influenza Virus Vaccine Quad IM 3+ YRS Unknown Completed [facility] HPV9 Unknown Completed [facility] TDAP Unknown Completed [facility] Influenza Virus Vaccine Quad IM 3+ YRS Unknown Completed [facility] HPV9 Unknown Completed [facility] TDAP Unknown Completed [facility] Influenza Virus Vaccine Quad IM 3+ YRS Unknown Completed [facility] HPV9 Unknown Completed [facility] TDAP Unknown Completed [facility] Influenza Virus Vaccine Quad IM 3+ YRS Unknown Completed [facility] HPV9 Unknown Completed [facility] TDAP Unknown Completed [facility] Influenza Virus Vaccine Quad IM 3+ YRS Unknown Completed [facility] HPV9 Unknown Completed [facility] TDAP Unknown Completed [facility] Influenza Virus Vaccine Quad IM 3+ YRS Unknown Completed [facility] HPV9 Unknown Completed [facility] TDAP Unknown Completed [facility] Influenza Virus Vaccine Quad IM 3+ YRS Unknown Completed [facility] HPV9 Unknown Completed [facility] TDAP Unknown Completed [facility] Influenza Virus Vaccine Quad IM 3+ YRS Unknown Completed [facility] HPV9 Unknown Completed [facility] TDAP Unknown Completed [facility] Influenza Virus Vaccine Quad IM 3+ YRS Unknown Completed [facility] HPV9 Unknown Completed [facility] TDAP Unknown Completed [facility] Influenza Virus Vaccine Quad IM 3+ YRS Unknown Completed [facility] Vital Signs Vital Name Observation Time Observation Value Comments S ource Systolic blood pressure 2024-12-18 16:24:00 107 mm[Hg] [facility] Diastolic blood pressure 2024-12-18 16:24:00 71 mm[Hg] [facility] Heart rate 2024-12-18 16:24:00 90 /min [facility] 2024-12-18 16:24:00 37.28 Shelly [facility] Respiratory rate 2024-12-18 16:24:00 18 /min [facility] Body height 2024-12-18 16:24:00 157.5 cm [facility] Body weight 2024-12-18 16:24:00 75.388 kg [facility] BMI 2024-12-18 16:24:00 30.40 kg/m2 [facility] Systolic blood pressure 2024-11-18 19:27:00 126 mm[Hg] [facility] Diastolic blood pressure 2024-11-18 19:27:00 78 mm[Hg] [facility] Heart rate 2024-11-18 19:27:00 70 /min [facility] Body temperature 2024-11-18 19:27:00 36.67 Shelly [facility] Respiratory rate 2024-11-18 19:27:00 18 /min [facility] Body height 2024-11-18 19:27:00 154.9 cm [facility] Body weight 2024-11-18 19:27:00 75.206 kg [facility] BMI 2024-11-18 19:27:00 31.33 kg/m2 [facility] Systolic blood pressure 2024-05-13 17:53:00 115 mm[Hg] [facility] Diastolic blood pressure 2024-05-13 17:53:00 76 mm[Hg] [facility] Heart rate 2024-05-13 17:53:00 74 /min [facility] Body temperature 2024-05-13 17:53:00 36.67 Shelly [facility] Respiratory rate 2024-05-13 17:53:00 18 /min [facility] Body height 2024-05-13 17:53:00 154.9 cm [facility] Body weight 2024-05-13 17:53:00 70.398 kg [facility] BMI 2024-05-13 17:53:00 29.32 kg/m2 [facility] BP Systolic 2024-02-15 00:00:00 108 mm[Hg] [facility] BP Diastolic 2024-02-15 00:00:00 71 mm[Hg] [facility] BMI (Body Mass Index) 2024-02-15 00:00:00 30.6 kg/m2 [facility] Height 2024-02-15 00:00:00 60 [in_i] [facility] Body Weight 2024-02-15 00:00:00 156.9 [lb_av] [facility] BP Systolic 2024-02-01 00:00:00 113 mm[Hg] [facility] Body Weight 2024-02-01 00:00:00 157.3 [lb_av] [facility] BMI (Body Mass Index) 2024-02-01 00:00:00 30.7 kg/m2 [facility] BP Diastolic 2024-02-01 00:00:00 81 mm[Hg] [facility] Height 2024-02-01 00:00:00 60 [in_i] [facility] BP Systolic 2024-01-31 00:00:00 127 mm[Hg] [facility] Body Weight 2024-01-31 00:00:00 159.2 [lb_av] [facility] BMI (Body Mass Index) 2024-01-31 00:00:00 31.1 kg/m2 [facility] Height 2024-01-31 00:00:00 60 [in_i] [facility] BP Diastolic 2024-01-31 00:00:00 75 mm[Hg] [facility] Systolic blood pressure 2024-01-11 16:12:00 116 mm[Hg] [facility] Diastolic blood pressure 2024-01-11 16:12:00 79 mm[Hg] [facility] Heart rate 2024-01-11 16:12:00 85 /min [facility] Body temperature 2024-01-11 16:12:00 36.61 Shelly [facility] Respiratory rate 2024-01-11 16:12:00 18 /min [facility] Body height 2024-01-11 16:12:00 154.9 cm [facility] Body weight 2024-01-11 16:12:00 71.532 kg [facility] BMI 2024-01-11 16:12:00 29.80 kg/m2 [facility] Oxygen saturation in Arterial blood by Pulse oximetry 2024-01-11 16:12:00 99 /min [facility] Systolic blood pressure 2023-10-24 19:18:00 119 mm[Hg] [facility] Diastolic blood pressure 2023-10-24 19:18:00 75 mm[Hg] [facility] Heart rate 2023-10-24 19:18:00 98 /[facility] Body temperature 2023-10-24 19:18:00 37.17 Shelly [facility] Respiratory rate 2023-10-24 19:18:00 16 /min [facility] Body weight 2023-10-24 19:18:00 70.308 kg [facility] BMI 2023-10-24 19:18:00 31.31 kg/m2 [facility] Oxygen saturation in Arterial blood by Pulse oximetry 2023-10-24 19:18:00 97 /min [facility] Systolic blood pressure 2023-02-28 13:12:00 123 mm[Hg] [facility] Diastolic blood pressure 2023-02-28 13:12:00 88 mm[Hg] [facility] Heart rate 2023-02-28 13:12:00 91 /min [facility] Body temperature 2023-02-28 13:12:00 36.83 Shelly [facility] Respiratory rate 2023-02-28 13:12:00 18 /min [facility] Body height 2023-02-28 13:12:00 149.9 cm [facility] Body weight 2023-02-28 13:12:00 66.395 kg [facility] BMI 2023-02-28 13:12:00 29.56 kg/m2 [facility] BP Diastolic 2022-11-02 00:00:00 72 mm[Hg] [facility] Height 2022-11-02 00:00:00 64 [in_i] [facility] BMI (Body Mass Index) 2022-11-02 00:00:00 25 kg/m2 [facility] BP Systolic 2022-11-02 00:00:00 108 mm[Hg] [facility] Body Weight 2022-11-02 00:00:00 145.4 [lb_av] [facility] BP Diastolic 2022-10-12 00:00:00 83 mm[Hg] [facility] Height 2022-10-12 00:00:00 64 [in_i] [facility] BMI (Body Mass Index) 2022-10-12 00:00:00 24.6 kg/m2 [facility] BP Systolic 2022-10-12 00:00:00 114 mm[Hg] [facility] Body Weight 2022-10-12 00:00:00 143.3 [lb_av] M [facility] BP Diastolic 2022-09-12 00:00:00 79 mm[Hg] [facility] Height 2022-09-12 00:00:00 64 [in_i] [facility] BMI (Body Mass Index) 2022-09-12 00:00:00 25.6 kg/m2 [facility] BP Systolic 2022-09-12 00:00:00 119 mm[Hg] [facility] Body Weight 2022-09-12 00:00:00 148.9 [lb_av] [facility] Systolic blood pressure 2022-07-07 20:00:00 107 mm[Hg] [facility] Diastolic blood pressure 2022-07-07 20:00:00 67 mm[Hg] [facility] Heart rate 2022-07-07 20:00:00 74 /min [facility] Body temperature 2022-07-07 20:00:00 36.44 Shelly [facility] Respiratory rate 2022-07-07 20:00:00 18 /min [facility] Body height 2022-07-07 20:00:00 149.9 cm [facility] Body weight 2022-07-07 20:00:00 64.921 kg [facility] BMI 2022-07-07 20:00:00 28.91 kg/m2 [facility] Procedures Procedure Date / Time Performed Performing Clinician Source GLUCOSE 1 HOUR POST PRANDIAL 2024-12-18 18:18:00 Altagracia Whitley [facility] CBC WITH DIFF 2024-12-18 18:18:00 Altagracia Whitley [facility] HB ABO GROUPING 2024-12-18 18:18:00 Altagracia Whitley [facility] HIV 1/2 AG-AB WITH REFLEX 2024-12-18 18:18:00 Altagracia Whitley Ihsan [facility] US OB TRANSVAGINAL 2024-12-18 17:58:35 [facility] 2024-12-18 16:26:00 Altagracia Whitley Ihsan [facility] POCT URINALYSIS W/O SPECIFIC GRAVITY 2024-12-18 16:26:00 NomanAltagracia Ihsan [facility] HIV 1/2 AG-AB WITH REFLEX 2024-11-18 20:06:00 Shelby Mercer [facility] SYPHILIS IGG/IGM 2024-11-18 20:06:00 Shelby Mercer [facility] GALV ONLY - VAGINAL PATHOGENS BY NUCLEIC ACID TESTING 2024-11-18 20:02:00 Ruslan [facility] POCT TEST 2024-11-18 19:52:00 [facility], UTERUS REAL TIME WITH IMAGE DOCUMENTAITON, TRANSVAGINAL 2024-01-31 00:00:00 [facility] ULTRASOUND, UTERUS REAL TIME WITH IMAGE DOCUMENTAITON, TRANSVAGINAL 2024-01-23 00:00:00 [facility] POCT URINALYSIS 2024-01-11 00:00:00 Radha James [facility] POCT TEST 2024-01-11 00:00:00 Gwendolyn James [facility] POCT TEST 2023-10-24 19:23:00 Gwendolyn James [facility] GALV ONLY - VAGINAL PATHOGENS BY NUCLEIC ACID TESTING 2023-10-24 19:20:00 Radha James [facility] POCT URINALYSIS 2023-10-24 19:19:00 Radha James [facility] ASSIGNMENT OF BENEFITS 2023-10-24 19:09:13 Docto r Unassigned, [place] [facility] CBC WITH DIFF 2023-02-28 13:55:00 Ena Small [facility] GLYCOSYLATED HEMOGLOBIN (A1C) 2023-02-28 13:55:00 Ena Small [facility] HCV ANTIBODY 2023-02-28 13:55:00 [facility] CHLAMYDIA AMPLIFIED ASSAY 2023-02-28 13:55:00 Ena Small [facility] GALV ONLY - VAGINAL PATHOGENS BY NUCLEIC ACID TESTING 2023-02-28 13:55:00 Ena Small [facility] HIV 1/2 AG-AB WITH REFLEX 2023-02-28 13:55:00 Ena Small [facility] SYPHILIS IGG/IGM 2023-02-28 13:55:00 Ena Small [facility] ASSIGNMENT OF BENEFITS 2023-02-28 12:47:02 Docto r Unassigned, [place] [facility], transvaginal 2022-11-16 00:00:00 [facility] REFERRAL- REQUEST/RESPONSE 2022-10-14 06:01:00 Doctor Unassigned, [place] [facility], transvaginal 2022-09-12 00:00:00 [facility] POCT TEST 2022-07-07 20:02:00 Meet Hicks [facility] Salpingectomy, Laparoscopic (Surg) [facility] Plan of Care Planned Activity Planned Date Details Comments Source Diagnostic Test Pending 2024-02-15 00:00:00 urinalysis, dipstick [code = urinalysis, dipstick] [facility] Diagnostic Test Pending 2024-02-15 00:00:00 wet mount, vaginal [code = wet mount, vaginal] [facility] Instructions [facility] Encounters Start Date/Time End Date/Time Encounter Type Admission Type Attending Clinicians Care Facility Care Department Encounter ID Source 2022-10-12 10:36:13 Outpatient [facility] [id number] [facility] 2025-01-16 08:45:00 2025-01-16 08:45:00 Outpatient R JAD PADRON [facility] [id number] [facility] 2025-01-05 08:15:00 2025-01-05 08:15:00 Outpatient R ALTAGRACIA WHITLEY VIEN [facility] [id number] [facility] 2024-12-19 00:00:00 2024-12-19 16:45:15 Tele[facility] 1.2.840.114 350.1.13.10 4.2.7.2.686 [id number] [facility] 2024-12-19 00:00:00 2024-12-19 14:07:19 Telephone Altagracia Whitley [facility] 1.2.840.114 350.1.13.10 4.2.7.2.686 [id number] [facility] 2024-12-18 11:15:00 2024-12-18 12:34:43 Lock Stitch Channeler Visit 2, Adc Lab Altagracia Whitley 2, Adc Lab [facility] 1.2.840.114 350.1.13.10 4.2.7.2.686 [id number] [facility] 2024-12-18 11:15:00 2024-12-18 11:15:00 Outpatient R ALTAGRACIA WHITLEY VIEN [facility] [id number] [facility] 2024-12-18 10:00:00 2024-12-18 10:54:04 Initial Visit Altagracia Whitley [facility] 1.2.840.114 350.1.13.10 4.2.7.2.686 [id number] [facility] 2024-12-09 07:30:00 2024-12-09 07:30:00 Outpatient R STEPHANIE HICKS [facility] [id number] [facility] 2024-12-05 18:26:00 2024-12-05 18:28:00 Emergency X MARCUS MCKEON JOSEPH [facility] ERT [id number] [facility] 2024-12-05 18:26:00 2024-12-05 18:28:00 Emergency Oanh Marcus Bairon [facility] 1.2.840.114 350.1.13.10 4.2.7.2.686 [id number] [facility] 2024-12-04 12:15:00 2024-12-04 12:15:00 Outpatient R ENA SMALL [facility] [id number] [facility] 2024-12-02 07:30:00 2024-12-02 07:30:00 Outpatient R [facility] [id number] [facility] 2024-12-02 07:00:00 2024-12-02 07:00:00 Outpatient R [facility] [id number] [facility] 2024-11-19 00:00:00 2024-11-19 13:57:55 Case Management Shelby Mercer [facility] PHYSICIAN GYNECOLOGIST [facility] MATERNAL & CHILD [facility] 1.0.114 350.1.13.10 4.2.7.2.686 [id number] [facility] 2024-11-18 13:00:00 2024-11-18 14:02:40 Outpatient R SHELBY MERCER [facility] [id number] [facility] 2024-11-18 13:00:00 2024-11-18 14:02:40 Office Visit Shelby Mercer [facility] PHYSICIAN GYNECOLOGIST [facility] MATERNAL & CHILD [facility] 1.20.114 350.1.13.10 4.2.7.2.686 [id number] [facility] 2024-09-15 00:00:00 2024-09-15 09:07:09 Refill Stephanie Hicks [facility] PHYSICIAN GYNECOLOGIST [facility] & CHILD [facility] 1.2840.114 350.1.13.10 4.2.7.2.686 [id number] [facility] 2024-09-15 00:00:00 2024-09-15 09:04:53 Refill Stephanie Hicks [facility] PHYSICIAN GYNECOLOGIST [facility] & CHILD [facility] 1..840.114 350.1.13.10 4.2.7.2.686 [id number] [facility] 2024-09-14 00:00:00 2024-09-15 07:57:34 Refill Stephanie Hicks [facility] PHYSICIAN GYNECOLOGIST [facility] & CHILD [facility] 1..840.114 350.1.13.10 4.2.7.2.686 [id number] [facility] 2024-09-02 09:45:00 2024-09-02 09:45:00 Outpatient R STEPHANIE HICKS [facility] [id number] [facility] 2024-05-16 00:00:00 2024-05-16 15:58:25 Telephone Ena Small [facility] PHYSICIAN GYNECOLOGIST [facility] & CHILD [facility] 1..840.114 350.1.13.10 4.2.7.2.686 [id number] [facility] 2024-05-15 00:00:00 2024-05-15 07:53:35 Case Management Ena Small [facility] PHYSICIAN GYNECOLOGIST [facility] & CHILD [facility] 1..840.114 350.1.13.10 4.2.7.2.686 [id number] 107 [id number] [facility] 2024-05-13 12:45:00 2024-05-13 13:28:19 Outpatient R STEPHANIE HICKS [facility] [id number] [facility] 2024-05-13 12:45:00 2024-05-13 13:00:00 Office Visit Stephanie Hicks [facility] PHYSICIAN GYNECOLOGIST [facility] & CHILD [facility] 1.2.840.114 350.1.13.10 4.2.7.2.686 [id number] [facility] 2024-04-10 15:15:00 2024-04-10 15:15:00 Outpatient SHELBY MAO [facility] [id number] [facility] 2024-04-08 21:43:00 2024-04-09 01:18:00 Emergency EM Flor Rouse [facility] [id number] 70 [facility] 2024-02-15 00:00:00 2024-02-15 00:00:00 Elise Hernandez MD: [address] [place] [address], [place] [address], [place] [id number] , Ph. [phone] [facility] [id number] [facility] 2024-02-01 14:23:00 2024-02-01 14:23:00 Outpatient ELISE IRBY [facility] [id number] [facility] 2024-02-01 00:00:00 2024-02-01 00:00:00 Elise Hernandez MD: [address] [place] [address], [place] [address], [place] [address] , Ph. [phone] [facility] [id number] [facility] 2024-01-31 15:00:00 2024-01-31 15:00:00 Outpatient ELISE IRBY [facility] [id number] [facility] 2024-01-31 00:00:00 2024-01-31 00:00:00 Elise Hernandez MD: [address] [place] [address], [facility], [place] [address] , Ph. [phone] [facility] [id number] [facility] 2024-01-29 00:00:00 2024-01-29 00:00:00 Outpatient White_M [facility] [place] [id number] [facility] 2024-01-25 14:19:00 2024-01-25 14:19:00 Outpatient JANE CHARLES [facility] [id number] [facility] 2024-01-23 09:29:00 2024-01-23 09:29:00 Outpatient JANE CHARLES [facility] [id number] [facility] 2024-01-23 00:00:00 2024-01-23 00:00:00 Jane Titus RIG BUILDER-BC: [address] [facility] [address] [facility], [address], [place] [address] , Ph. [phone] White_M MM[facility] [id number] [facility] 2024-01-22 08:15:00 2024-01-22 08:15:00 Outpatient ENA CONTEH [facility] [id number] [facility] 2024-01-16 00:00:00 2024-01-16 00:00:00 Outpatient White_M [facility] [id number] [facility] 2024-01-11 14:00:00 2024-01-11 14:00:00 Outpatient Kinsey SANCHEZ, ATTENDING [facility] [id number] [facility] 2024-01-11 11:00:00 2024-01-11 11:20:14 Outpatient RADHA DYE [facility] [id number] [facility] 2024-01-11 11:00:00 2024-01-11 11:20:14 Urgent Care Radha James, Attending [facility] 1.2.840.114 350.1.13.10 4.2.7.2.686 [id number] [facility] 2023-10-24 13:00:00 2023-10-24 13:27:23 Outpatient LORELEI DYECY [facility] [id number] [facility] 2023-10-24 13:00:00 2023-10-24 13:27:23 Urgent Care Radha James Unknown, Attending [facility] 1.84.114 350.1.13.10 4.2.7.2.686 [id number] [facility] 2023-10-24 00:00:00 2023-10-24 00:00:00 Orders Only Doctor Unassigned, [place] [facility] 1..114 350.1.13.10 4.2.7.2.686 [id number] [facility] 2023-04-23 13:15:00 2023-04-23 13:15:00 Outpatient R STEPHANIE HICKS [facility] [id number] [facility] 2023-04-02 14:30:00 2023-04-02 14:30:00 Outpatient R IVY MONTEJO [facility] [id number] [facility] 2023-03-31 00:00:00 2023-03-31 00:00:00 Patient Secure Msg Ena Small [facility] PHYSICIAN GYNECOLOGIST [facility] & CHILD [facility] .840.114 350.1.13.10 4.2.7.2.686 [id number] 107 [id number] [facility] 2023-03-02 00:00:00 2023-03-02 00:00:00 Case Management Ena Small [facility] PHYSICIAN GYNECOLOGIST [facility] & CHILD [facility] .840.114 350.1.13.10 4.2.7.2.686 [id number] 107 [id number] [facility] 2023-03-02 00:00:00 2023-03-02 00:00:00 Telephone Stephanie Hicks [facility] PHYSICIAN GYNECOLOGIST [facility] 1.2.840.114 350.1.13.10 4.2.7.2.686 [id number] [facility] 2023-03-02 00:00:00 2023-03-02 00:00:00 Patient Secure Msg Ena Small [facility] PHYSICIAN GYNECOLOGIST [facility] CHILD [facility] 1.2.840.114 350.1.13.10 4.2.7.2.686 [id number] 107 [id number] [facility] 2023-02-28 07:45:00 2023-02-28 08:57:53 Outpatient ENA CONTEH [facility] [id number] [facility] 2023-02-28 07:45:00 2023-02-28 08:57:53 Office Visit Ena Small [facility] PHYSICIAN GYNECOLOGIST [facility] CHILD [facility] 1.2840.114 350.1.13.10 4.2.7.2.686 [id number] 107 [id number] [facility] 2023-02-28 00:00:00 2023-02-28 00:00:00 Orders Only Doctor Unassigned, [place] [facility] 1.2.840.114 350.1.13.10 4.2.7.2.686 [id number] [facility] 2023-01-30 14:45:00 2023-01-30 14:45:00 Outpatient ENA CONTEH [facility] [id number] [facility] 2022-12-19 14:30:00 2022-12-19 14:30:00 Outpatient VELIA BAINS [facility] [id number] [facility] 2022-11-16 00:00:00 2022-11-16 00:00:00 Outpatient Jose Raul FONTANEZ [facility] [id number] [facility] 2022-11-16 00:00:00 2022-11-16 00:00:00 SKYLAR GrayP-BC: [address], [place] [address] , Ph. [phone] [facility] CHILDS [id number] [facility] 2022-11-02 15:26:00 2022-11-02 15:26:00 Outpatient JANE CHARLES [facility] [id number] [facility] 2022-11-02 00:00:00 2022-11-02 00:00:00 Jane TitusBISHOP-BC: [address], [place] [address] , Ph. [phone] [facility] CHILDS [id number] [facility] 2022-10-14 00:00:00 2022-10-14 00:00:00 Orders Only Doctor Unassigned, [place] [facility] 1.2.840.114 350.1.13.10 4.2.7.2.686 [id number] [facility] 2022-10-12 00:00:00 2022-10-12 00:00:00 Outpatient White_M MMG [facility] [id number] [facility] 2022-10-12 00:00:00 2022-10-12 00:00:00 Outpatient White_M [facility] G [id number] [facility] 2022-10-12 00:00:00 2022-10-12 00:00:00 Jane TitusBISHOP-BC: [address], [place] [address] , Ph. [phone] [facility] NAZ [id number] [facility] 2022-10-06 09:00:00 2022-10-06 09:00:00 Outpatient STEPHANIE BAKER [facility] [id number] [facility] 2022-09-12 15:04:00 2022-09-12 15:04:00 Outpatient JANE CHARLES [facility] [id number] [facility] 2022-09-12 00:00:00 2022-09-12 00:00:00 Outpatient Jose Raul [facility] [id number] [facility] 2022-09-12 00:00:00 2022-09-12 00:00:00 Jane Titus RIG BUILDER-BC: [address], [place] [address] , Ph. [phone] MM[facility] [id number] [facility] 2022-07-07 14:45:00 2022-07-07 15:27:14 Office Visit Stephanie Hicks [facility] PHYSICIAN GYNECOLOGIST [facility] MATERNAL & CHILD [facility] ..840.114 350.1.13.10 4.2.7.2.686 [id number] [facility] 2022-07-07 14:45:00 2022-07-07 15:27:14 Outpatient R STEPHANIE HICKS [facility] [id number] [facility] 2022-07-07 14:45:00 2022-07-07 14:45:00 Outpatient R STEPHANIE HICKS [facility] [id number] [facility] 2022-07-07 08:15:00 2022-07-07 08:15:00 Outpatient R RICHARD AMAYA [facility] [id number] [facility] 2022-06-27 00:00:00 2022-06-27 00:00:00 Patient Secure Msg Stephanie Hicks [facility] PHYSICIAN GYNECOLOGIST [facility] & CHILD [facility] ..840.114 350.1.13.10 4.2.7.2.686 [id number] 107 [id number] [facility] 2022-06-21 10:30:00 2022-06-21 11:49:35 Office Visit Stephanie Hicks [facility] PHYSICIAN GYNECOLOGIST [facility] & CHILD [facility] 1..840.114 350.1.13.10 4.2.7.2.686 [id number] [facility] 2022-06-21 10:30:00 2022-06-21 11:49:35 Outpatient R KAYSTEPHANIE [facility] [id number] [facility] 2022-06-21 10:30:00 2022-06-21 10:30:00 Outpatient R KAY STEPHANIE [facility] [id number] [facility] 2022-06-19 10:15:00 2022-06-19 10:15:00 Outpatient R STEPHANIE HICKS [facility] [id number] [facility] 2022-06-16 14:00:00 2022-06-16 14:00:00 Outpatient R STEPHANIE HICKS [facility] [id number] [facility] 2022-06-16 00:00:00 2022-06-16 00:00:00 Telephone Stephanie Hicks [facility] PHYSICIAN GYNECOLOGIST [facility] & CHILD [facility] .840.114 350.1.13.10 4.2.7.2.686 [id number] [facility] 2022-04-25 08:15:00 2022-04-25 08:15:00 Outpatient R STEPHANIE HICKS [facility] [id number] [facility] 2022-04-18 14:15:00 2022-04-18 14:15:00 Outpatient R STEPHNAIE HICKS [facility] [id number] [facility] 2022-04-14 00:00:00 2022-04-14 00:00:00 Telephone Stephanie Hicks [facility] PHYSICIAN GYNECOLOGIST [facility] MATERNAL & CHILD [facility] 1..840.114 350.1.13.10 4.2.7.2.686 [id number] 107 [id number] [facility] 2022-04-14 00:00:00 2022-04-14 00:00:00 Patient Secure Msg Stephanie Hicks TERENCECHRISTIN PHYSICIAN GYNECOLOGIST [facility] & CHILD [facility] 1.2.840.114 350.1.13.10 4.2.7.2.686 [id number] [facility] 2022-04-04 00:00:00 2022-04-04 00:00:00 Patient Secure Msg Stephanie Hicks PRMB PHYSICIAN GYNECOLOGIST [facility] CHILD [facility] 1.2.840.114 350.1.13.10 4.2.7.2.686 [id number] 107 [id number] [facility] 2022-04-03 00:00:00 2022-04-03 00:00:00 Patient Secure Msg Stephanie Hicks [facility] PHYSICIAN GYNECOLOGIST [facility] CHILD [facility] 1.2.840.114 350.1.13.10 4.2.7.2.686 [id number] 107 [id number] [facility] 2022-04-03 00:00:00 2022-04-03 00:00:00 Telephone Stephanie Hicks LEANN PHYSICIAN GYNECOLOGIST [facility] CHILD [facility] 1.2.840.114 350.1.13.10 4.2.7.2.686 [id number] [facility] 2022-03-31 16:00:00 2022-03-31 16:29:52 Outpatient R STEPHANIE HICKS [facility] [id number] [facility] 2022-03-31 16:00:00 2022-03-31 16:29:52 Office Visit Katjess Stephanie Henderson PRCHRISTIN PHYSICIAN GYNECOLOGIST [facility] CHILD [facility] 1.2.840.114 350.1.13.10 4.2.7.2.686 [id number] 107 [id number] [facility] 2022-03-31 00:00:00 2022-03-31 00:00:00 Orders Only Doctor Unassigned, [place] [facility] 1..114 350.1.13.10 4.2.7.2.686 [id number] [facility] 2022-01-30 13:00:00 2022-01-30 13:00:00 Outpatient R KARLA BURRELL [facility] [id number] [facility] 2021-11-12 00:00:00 2021-11-12 00:00:00 Patient Secure Msg Doctor Unassigned, [place] [facility] 1..114 350.1.13.10 4.2.7.2.686 [id number] [facility] 2021-11-11 14:00:00 2021-11-11 14:00:00 Outpatient R STEPHANIE HICKS [facility] [id number] [facility] 2021-11-11 14:00:00 2021-11-11 14:00:00 Outpatient R STEPHANIE HICKS [facility] [id number] [facility] 2021-10-28 13:45:00 2021-10-28 14:59:43 Outpatient R STEPHANIE HICKS [facility] [id number] [facility] 2021-10-28 13:45:00 2021-10-28 14:59:43 Office Visit Stephanie Hicks [facility] PHYSICIAN GYNECOLOGIST [facility] 1.0.114 350.1.13.10 4.2.7.2.686 [id number] [facility] 2021-05-25 00:00:00 2021-05-25 00:00:00 Telephone Stephanie Hicks [facility] PHYSICIAN GYNECOLOGIST [facility] 1.840.114 350.1.13.10 4.2.7.2.686 [id number] [facility] 2021-05-24 15:15:00 2021-05-24 15:15:00 Outpatient R STEPHANIE HICKS [facility] [id number] [facility] 2021-05-11 16:00:00 2021-05-11 16:00:00 Outpatient R STEPHANIE HICKS [facility] [facility] [id number] [facility] 2021-04-26 00:00:00 2021-04-26 00:00:00 Telephone Stephanie Hicks [facility] PHYSICIAN GYNECOLOGIST [facility] & CHILD [facility] 1.0.114 350.1.13.10 4.2.7.2.686 [id number] 107 [id number] [facility] 2021-04-14 13:45:00 2021-04-14 13:45:00 Outpatient P [facility] [id number] [facility] 2021-04-05 15:45:00 2021-04-05 15:45:00 Outpatient R STEPHANIE HICKS [facility] [id number] [facility] 2021-04-04 00:00:00 2021-04-04 00:00:00 Patient Secure Msg Doctor Unassigned, [place] [facility] 1.0.114 350.1.13.10 4.2.7.2.686 [id number] 107 [id number] [facility] 2021-03-30 00:00:00 2021-03-30 00:00:00 Patient Secure Msg Doctor Unassigned, [place] [facility] 1.0.114 350.1.13.10 4.2.7.2.686 [id number] [facility] 2021-03-25 00:00:00 2021-03-25 00:00:00 Telephone Stephanie Hicks [facility] PHYSICIAN GYNECOLOGIST [facility] CHILD [facility] 1.840.114 350.1.13.10 4.2.7.2.686 [id number] 107 [id number] 2021-03-25 00:00:00 2021-03-25 00:00:00 Telephone Stephanie Hicks [facility] PHYSICIAN GYNECOLOGIST [facility] & CHILD [facility] 1.2840.114 350.1.13.10 4.2.7.2.686 [id number] 107 [id number] [facility] 2021-03-24 10:30:23 2021-03-24 10:47:41 Lock Stitch Channeler Visit Lab, [facility] Ida Varela [facility] PHYSICIAN GYNECOLOGIST [facility] & CHILD [facility] 1.2840.114 350.1.13.10 4.2.7.2.686 [id number] 107 [id number] [facility] 2021-03-24 10:30:00 2021-03-24 10:30:00 Outpatient R [facility] [id number] [facility] 2021-03-24 00:00:00 2021-03-24 00:00:00 Patient Secure Msg Doctor Unassigned, [place] [facility] 1.840.114 350.1.13.10 4.2.7.2.686 [id number] [facility] 2021-03-24 00:00:00 2021-03-24 00:00:00 Telephone Stephanie Hicks [facility] PHYSICIAN GYNECOLOGIST [facility]ILD [facility] 1.2840.114 350.1.13.10 4.2.7.2.686 [id number] 107 [id number] [facility] 2021-03-23 00:00:00 2021-03-23 00:00:00 Patient Secure Msg Richard Amaya R [facility] PHYSICIAN GYNECOLOGIST [facility] & [facility]ILD [facility] 1.2840.114 350.1.13.10 4.2.7.2.686 [id number] 107 [id number] [facility] 2021-03-22 15:10:35 2021-03-22 15:25:35 Initial Visit Chaddyasmeenjess Stephanie Henderson [facility] PHYSICIAN GYNECOLOGIST [facility] & CHILD [facility] 1.2840.114 350.1.13.10 4.2.7.2.686 [id number] 107 [id number] [facility] 2021-03-22 15:00:00 2021-03-22 15:00:00 Outpatient R STEPHANIE HICKS [facility] [id number] [facility] 2021-03-22 00:00:00 2021-03-22 00:00:00 Orders Only Doctor Unassigned, [place] [facility] 1..114 350.1.13.10 4.2.7.2.686 [id number] [facility] 2021-02-23 13:08:12 2021-02-23 13:35:01 Office Visit Richard Amaya [facility] PHYSICIAN GYNECOLOGIST [facility] & [facility]ILD [facility] 1.84.114 350.1.13.10 4.2.7.2.686 [id number] 107 [id number] [facility] 2021-02-23 13:00:00 2021-02-23 13:00:00 Outpatient R RICHARD AMAYA [facility] [id number] [facility] 2021-02-16 09:30:00 2021-02-16 09:30:00 Outpatient R [facility] [id number] [facility] 2021-02-16 09:30:00 2021-02-16 09:30:00 Outpatient R RICHARD AMAYA [facility] [id number] [facility] 2021-02-14 00:00:00 2021-02-14 00:00:00 Patient Secure Msg Doctor Unassigned, [place] [facility] 1.284.114 350.1.13.10 4.2.7.2.686 [id number] 107 [id number] [facility] 2021-02-14 00:00:00 2021-02-14 00:00:00 Patient Secure Msg Doctor Unassigned, [place] [facility] 1.2.840.114 350.1.13.10 4.2.7.2.686 [id number] [facility] 2021-02-02 10:05:24 2021-02-02 11:11:24 Routine Visit Richard Amaya [facility] PHYSICIAN GYNECOLOGIST [facility] MATERNAL & CHILD [facility] 1..840.114 350.1.13.10 4.2.7.2.686 [id number] 107 [id number] [facility] 2021-02-02 10:00:00 2021-02-02 10:00:00 Outpatient R RICHARD AMAYA [facility] [id number] [facility] 2021-02-02 00:00:00 2021-02-02 00:00:00 Orders Only Doctor Unassigned, [place] [facility] 1.2.840.114 350.1.13.10 4.2.7.2.686 [id number] [facility] 2021-02-01 14:45:00 2021-02-01 14:45:00 Outpatient R RICHARD AMAYA [facility] [id number] [facility] 2021-01-31 13:45:00 2021-01-31 13:45:00 Outpatient R RICHARD AMAYA [facility] [id number] [facility] 2021-01-11 00:00:00 2021-01-11 00:00:00 Patient Outreach Pardeep Amaro [facility] 1..840.114 350.1.13.10 4.2.7.2.686 [id number] [facility] 2021-01-10 14:26:11 2021-01-10 15:14:43 Initial Visit Richard Amaya [facility] PHYSICIAN GYNECOLOGIST [facility] MATERNAL & CHILD [facility] 1.84.114 350.1.13.10 4.2.7.2.686 [id number] 107 [id number] [facility] 2021-01-10 14:00:00 2021-01-10 14:00:00 Outpatient R RICHARD AMAYA [facility] [id number] [facility] 2021-01-10 00:00:00 2021-01-10 00:00:00 Orders Only Doctor Unassigned, [place] [facility] 1..114 350.1.13.10 4.2.7.2.686 [id number] [facility] 2021-01-03 14:00:00 2021-01-03 14:00:00 Outpatient R [facility] [id number] [facility] 2021-01-03 12:45:00 2021-01-03 12:45:00 Outpatient R RICHARD AMAYA [facility] [id number] [facility] 2020-12-28 13:15:00 2020-12-28 13:15:00 Outpatient R RICHARD AMAYA [facility] [id number] [facility] 2020-11-29 00:00:00 2020-11-29 00:00:00 Telephone Richard Amaya [facility] PHYSICIAN GYNECOLOGIST [facility] & CHILD [facility] 1.840.114 350.1.13.10 4.2.7.2.686 [id number] 107 [id number] [facility] 2020-11-24 14:45:48 2020-11-24 15:26:28 Office Visit Richard Amaya [facility] PHYSICIAN GYNECOLOGIST [facility] & CHILD [facility] 1.84.114 350.1.13.10 4.2.7.2.686 [id number] 107 [id number] [facility] 2020-11-24 14:45:00 2020-11-24 14:45:00 Outpatient R RICHARD AMAYA [facility] [id number] [facility] 2020-11-24 00:00:00 2020-11-24 00:00:00 Orders Only Doctor Unassigned, [place] [facility] 1..840.114 350.1.13.10 4.2.7.2.686 [id number] [facility] 2020-09-14 13:30:00 2020-09-14 13:30:00 Outpatient Kinsey CEBALLOSERICHARD [facility] [id number] [facility] 2020-09-13 00:00:00 2020-09-13 00:00:00 Richard Lombardo [facility] PHYSICIAN GYNECOLOGIST [facility] MATERNAL & CHILD [facility] 1..840.114 350.1.13.10 4.2.7.2.686 [id number] 107 [id number] [facility] 2020-09-09 15:00:00 2020-09-09 15:00:00 Outpatient Kinsey CEBALLOSERICHARD [facility] [id number] [facility] 2020-09-01 12:45:00 2020-09-01 12:45:00 Outpatient RICHARD GRAVES [facility] [id number] [facility] 2020-09-01 12:45:00 2020-09-01 12:45:00 Outpatient RICHARD GRAVES [facility] [id number] [facility] 2020-07-29 09:45:00 2020-07-29 09:45:00 Outpatient R AKINSTEPHANIE MCKEON [facility] [id number] [facility] 2020-07-29 09:45:00 2020-07-29 09:45:00 Outpatient R AKINSIPEBUNNYSTEPHANIE [facility] [id number] [facility] 2020-06-08 10:45:00 2020-06-08 10:45:00 Outpatient R AKINSIPESTEPHANIE [facility] [id number] [facility] 2020-06-08 10:45:00 2020-06-08 10:45:00 Outpatient R STEPHANIE HICKS [facility] [id number] [facility] 2020-04-13 11:00:57 2020-04-13 11:44:15 Office Visit Richard Amaya [facility] PHYSICIAN GYNECOLOGIST [facility] & CHILD [facility] 1..840.114 350.1.13.10 4.2.7.2.686 [id number] 107 [id number] [facility] 2020-04-13 11:00:00 2020-04-13 11:00:00 Outpatient R RICHARD AMAYA [facility] [id number] [facility] 2020-04-13 09:45:00 2020-04-13 09:45:00 Outpatient R IDA VARELA [facility] [id number] [facility] 2020-03-09 10:30:00 2020-03-09 10:30:00 Outpatient R RICHARD AMAYA [facility] [id number] [facility] 2020-03-04 00:00:00 2020-03-04 00:00:00 Telephone Ida Varela [facility] 1..840.114 350.1.13.10 4.2.7.2.686 [id number] 107 [id number] [facility] 2020-01-12 15:30:00 2020-01-12 15:30:00 Outpatient R IDA VARELA [facility] [id number] [facility] 2020-01-07 00:00:00 2020-01-07 00:00:00 Patient Secure Msg Doctor Unassigned, [place] [facility] PHYSICIAN GYNECOLOGIST [facility] CHILD [facility] 1..840.114 350.1.13.10 4.2.7.2.686 [id number] 107 [id number] [facility] 2020-01-05 13:19:07 2020-01-05 14:07:46 Office Visit Stephanie Hicks [facility] PHYSICIAN GYNECOLOGIST [facility] CHILD [facility] 1.2840.114 350.1.13.10 4.2.7.2.686 [id number] 107 [id number] [facility] 2020-01-05 13:15:00 2020-01-05 13:15:00 Outpatient R STEPHANIE HICKS [facility] [id number] [facility] 2019-12-12 08:00:00 2019-12-12 08:00:00 Outpatient R RICHARD AMAYA [facility] [id number] [facility] 2019-12-11 00:00:00 2019-12-11 00:00:00 Patient Secure Msg Ida Varela [facility] PHYSICIAN GYNECOLOGIST [facility] & CHILD [facility] 1.2840.114 350.1.13.10 4.2.7.2.686 [id number] 107 [id number] [facility] 2019-12-08 11:15:24 2019-12-08 11:43:05 Office Visit Richard Amaya [facility] PHYSICIAN GYNECOLOGIST [facility] & CHILD [facility] 1.2840.114 350.1.13.10 4.2.7.2.686 [id number] 107 [id number] [facility] 2019-12-08 00:00:00 2019-12-08 00:00:00 Orders Only Doctor Unassigned, [place] [facility] 1.2840.114 350.1.13.10 4.2.7.2.686 [id number] [facility] 2019-11-28 00:00:00 2019-11-28 00:00:00 Telephone Ida Varela [facility] PHYSICIAN GYNECOLOGIST [facility] & CHILD [facility] 1.20.114 350.1.13.10 4.2.7.2.686 [id number] 107 [id number] [facility] 2019-11-25 08:40:20 2019-11-25 09:30:23 Office Visit Ida Varela [facility] PHYSICIAN GYNECOLOGIST [facility] 1.2.840.114 350.1.13.10 4.2.7.2.686 [id number] 107 [id number] [facility] 2019-11-25 00:00:00 2019-11-25 00:00:00 Telephone Ida Varela [facility] PHYSICIAN GYNECOLOGIST [facility] CHILD [facility] 1.2.840.114 350.1.13.10 4.2.7.2.686 [id number] 107 [id number] [facility] 2019-11-05 00:00:00 2019-11-05 00:00:00 Telephone Stephanie Hicks [facility] PHYSICIAN GYNECOLOGIST [facility] CHILD [facility] 1.2.840.114 350.1.13.10 4.2.7.2.686 [id number] 107 [id number] [facility] 2019-06-17 12:53:35 2019-06-17 13:48:17 Office Visit Ida Varela [facility] PHYSICIAN GYNECOLOGIST [facility] CH[facility] 1.2.840.114 350.1.13.10 4.2.7.2.686 [id number] 107 [id number] [facility] 2019-06-17 00:00:00 2019-06-17 00:00:00 Orders Only Doctor Unassigned, [place] [facility] 1.2.840.114 350.1.13.10 4.2.7.2.686 [id number] [facility] Results Test Description Test Time Test Comments Results Result Co mments Source [facility] w/o Specific [id number] 16:26:00* Test Item Value Reference Range Interpretation Comme nts POCT PH U (test code = 3254) na 5-8 POCT U LEUK EST (test code = 3263) na Negative - N egative POCT U NIT (test code = 3262) na Negative - Negati ve POCT U PROT (test code = 3259) neg Negative - Negat rishi POCT U GLU (test code = 3256) neg Negative - Negati ve POCT U KETONE (test code = 3258) na Negative - Neg ative POCT U BLD (test code = 3257) na Negative - Negati ve [facility] [id number] 19:52:00* Test Item Value Reference Range Interpretation Comme nts POCT PREG (test code = 1605) Negative On board controls acceptable with C Line (test code = 3574) Yes POCT PREG LOT # (test code = 3575) POCT PREG TEST DATE ( test code = 3576) [facility] [id number] 23:45:00* Test Item Value Reference Range Interpretation [...] milliInternationalunits/mL SHOULD BE CONSIDERED NEGATIVE - DUP AB/PEL/SC/[id number] 23:00:00 [facility] : 1995 Sex: FPatient Name: DEREK GARCIA Unit No: [id number] EXAMS: CPT CODE: [id number] DUP AB/PEL/SC/LTD 27561 EXAM: - US PREG EVAL 1ST TRIMTR, - US PREG UT TRANSVAGINAL, - DUP AB/PEL/SC/LTD 04/08/2024 10:57PM CLINICAL INFORMATION: Vaginal bleeding. TECHNIQUE: Transabdominal and transvaginal shelley-scale and color Doppler ultrasound of the pelvis was performed. COMPARISON: None FINDINGS: Uterus: 8.2 x 4.7x 6.2 cm. Thickened endometrium measures 1.7 cm with multiple nonspecific prominent vessels/vasculature within the myometrium. No intrauterine identified. Right ovary: 3.9 x 2.9 x 3 cm. Normal blood flow on Doppler interrogation. Echogenic structure in the right adnexa measures 2.1 x 1.3x 1.7 cm. Left ovary: 2.3 x 1.6 [...] Luma Watkins RDMS Probe: Trnscrbd D/ (2300) [email or web address] Orig Print D/T: S: 04/08/2024 (2304) [facility] NAME: DEREK GARCIA Radiology Department PHYS: [email or web address].[email or web address] - Flor Rouse MD [address] : 1995 AGE: 28 SEX: F [place], [place] [address] LOC: JA PHONE #: [phone] EXAM DATE: 04/08/2024 STATUS: REG ER FAX #: [phone] RAD NO: Page 1 Signed Report Patient Name: DEREK GARCIA Unit No: [id number] EXAMS: CPT CODE: [id number] DUP AB/PEL/SC/LTD 63409 (Continued) [facility] NAME: DEREK GARCIA Radiology Department PHYS: Tommie - Flor Rouse MD [address] : 1995 AGE: 28 SEX: F [place], [place] [address] LOC: JA PHONE #: [phone] EXAM DATE: 04/08/2024 STATUS: REG ER FAX #: [phone] RAD NO: Page 2Signed Report- US PREG UT [id number] 23:00[facility]00[facility] : 1995 Sex: F Patient Name: DEREK GARCIA Unit No: [id number] EXAMS: CPT CODE: [id number] US PREG UT TRANSVAGINAL 40376 EXAM: - US PREG EVAL 1ST TRIMTR, - US PREG UT TRANSVAGINAL, - DUP AB/PEL/SC/LTD 0:57 PM CLINICAL INFORMATION: Vaginal bleeding. TECHNIQUE: Transabdominal and transvaginal shelley-scale and color Doppler ultrasound of the pelvis [...] CC: Flor Rouse MD Technologist: Luma Watkins RDPA Probe: [id number] Trnscrbd D/ (2299) [id number] Orig Print D/T: S: 04/08/2024 (2303) [facility] NAME: DEREK GARCIA Radiology Department PHYS: Flor Rouse MD [address] : 1995 AGE: 28 SEX: F [place] [address] LOC: OfeliaERS PHONE #: [phone] EXAM DATE: 04/08/2024 STATUS: REG ER FAX #: [phone] RAD NO: Page 1 Signed Report Patient Name: JULIODEREK Unit No: [id number] EXAMS: CPT CODE: [id number] US PREG UT TRANSVAGINAL 43773 (Continued) [facility] NAME: DEREK GARCIA Radiology Department PHYS: MOUNA Flor Rouse MD [address] : 1995 AGE: 28 SEX: F [place] [address] LOC: Alejandro.ERS PHONE #: [phone] EXAM DATE: 04/08/2024 STATUS: REG ER FAX #: [phone] RAD NO: Page 2 Signed Report- US PREG EVAL 1ST [id number] 23:00:00[facility] : 1995 Sex: FPatient Name: DEREK GARCIA Unit No: [id number] EXAMS: CPT CODE: [id number] US PREG EVAL 1ST TRIMTR 92080 EXAM: - US PREG EVAL 1ST TRIMTR, - US PREG UT TRANSVAGINAL, - DUP AB/PEL/SC/LTD 04/08/2024 10:57 PM CLINICAL INFORMATION: Vaginal bleeding. TECHNIQUE: Transabdominal and transvaginal shelley-scale and color Doppler ultrasound of the pelvis was performed. COMPARISON: None FINDINGS: Uterus: 8.2 x 4.7 x 6.2 cm. Thickened endometrium measures 1.7 cm with multiple nonspecific prominent vessels/vasculature within the myometrium. No intrauterine identified. Right ovary: 3.9 x 2.9 x 3 cm.Normal blood flow on Doppler interrogation. Echogenic structure [...] with multiple nonspecific prominent vessels/vasculature within the myomet rium. at 2300 Reported and signed by: Darinel Hall M.D. CC: Flor Rouse MD Technologist: Luma Watkins RDMS Probe: Trnscrbd D/ (230) t.[email or web address] Orig Print D/T: S: 04/08/2024 (2303) [facility] NAME: JULIODEREK Radiology Department PHYS: IMELDABernice Flor Garces MD [address] :1995 AGE: 28 SEX: F [place] [address] LOC: F.ERS PHONE #: [phone] EXAM DATE: 04/08/2024 STATUS: REG ER FAX #: [phone] RAD NO: Page 1 Signed Report Patient Name: DEREK GARCIA Unit No: [id number] EXAMS: CPT CODE: [id number] US PREG EVAL 1ST TRIMTR 84532 (Co ntinued) [facility] NAME: DEREK GARCIA Radiology Department PHYS: -Flor Rouse MD [address] : 1995 AGE: 28 SEX: F [place] [address] LOC: F.ERS PHONE #: [phone] EXAM DATE: 04/08/2024 STATUS: REG ER FAX #: [phone] RAD NO: P age 2 Signed ReportMicroscopic observation [Identifier] in Vaginal fluid by Wet [id number] 16:35:18* Test Item Value Reference Range Interpretation Comme nts Clue Cells (test code = Clue Cells) negative WBCs (test code = WBCs) positive Trichomonads (test code = Trichomonads) negative Epithelial cells (test code = Epithelial cells) normal RBCs (test code = RBCs) negative [facility]stick) panel - [id number] 14:37:04* Test Item Value Reference Range Interpretation Comme nts Leukocytes (test code = Leukocytes) Negative Nitrite (test code = Nitrite) negative Urobilinogen (test code = Urobilinogen) .2 Protein (test code = Protein) Negative pH (test code = pH) 6.0 Blood (test code = Blood) Non-Hemolyzed: Trace Specific Topanga (test code = Specific Topanga) 1.025 Ketone (test code = Ketone) Negative Bilirubin (test code = Bilirubin) Negative Glucose (test code = Glucose) Negative Appearance (test code = Appearance) Clear Color (test code = Color) Yellow [facility] W Auto Differential panel - [id number] 14:43:00 * Test Item Value Reference Range [...] NRBC# (test code = NRBC#) 0 K/uL [facility] CenterUrinalysis macro (dipstick) panel - [id number] 14:01:32* Test Item Value Reference Range Interpretation Comme nts Leukocytes (test code = Leukocytes) Small Nitrite (test code = Nitrite) negative Urobilinogen (test code = Urobilinogen) .2 Protein (test code = Protein) 30 pH (test code = pH) 5.0 Blood (test code = Blood) Moderate Specific Topanga (test code = Specific Topanga) 1.025 Ketone (test code = Ketone) Large Bilirubin (test code = Bilirubin) Negative Glucose (test code = Glucose) Negative Appearance (test code = Appearance) Clear Color (test code = Color) Yellow [facility] [id number] 17:06:00* Test Item Value Reference Range Interpretation Comme nts HCG quantitative (test code = HCG quantitative) 8750.0 mIU/mL 0-5 H [facility] CenterUrinalysis macro (dipstick) panel - [id number] 14:17:46* Test Item Value Reference Range Interpretation Comme nts Leukocytes (test code = Leukocytes) Small Nitrite (test code = Nitrite) negative Urobilinogen (test code = Urobilinogen) .2 Protein (test code = Protein) Negative pH (test code = pH) 7.0 Blood (test code = Blood) Non-Hemolyzed: Trace Specific Topanga (test code = Specific Topanga) 1.015 Ketone (test code = Ketone) Negative Bilirubin (test code = Bilirubin) Negative Glucose (test code = Glucose) Negative Appearance (test code = Appearance) Clear Color (test code = Color) Yellow [facility] [id number] 18:09:00* Test Item Value Reference Range Interpretation Comme [facility] HCG quantitative (test code = HCG quantitative) 1146.0 mIU/mL 0-5 H [facility] CenterH[facility] [id number] 11:06:00* Test Item Value Reference Range Interpretation Comme nts HCG quantitative (test code = HCG quantitative) 466.6 mIU/mL 0-5 H [facility] CenterChoriogonadotropin.beta subunit [Units/volume] in Serum or [id number] 11:06:00* Test Item Value Reference Range Interpretation Comme nts HCG quantitative (test code = HCG quantitative) 466.6 mIU/mL 0-5 H [facility] Centerpregnancy test, [id number] 09:36:27* Test Item Value Reference Range Interpretation Comme nts Test (test code = Test) positive [facility] CenterUrinalysis macro (dipstick) panel - [id number] 08:33:52* Test Item Value Reference Range Interpretation Comme nts Leukocytes (test code = Leukocytes) Negative Nitrite (test code = Nitrite) negative Urobilinogen (test code = Urobilinogen) .2 Protein (test code = Protein) Negative pH (test code = pH) 6.0 Blood (test code = Blood) Non-Hemolyzed: Trace Specific Topanga (test code = Specific Topanga) 1.025 Ketone (test code = Ketone) Negative Bilirubin (test code = Bilirubin) Negative Glucose (test code = Glucose) Negative Appearance (test code = Appearance) Clear Color (test code = Color) Yellow [facility] [id number] 16:22:00* Test Item Value Reference Range Interpretation Comme [facility] POCT PREG (test code = 1605) Negative On board controls acceptable with C Line (test code = 3574) Yes POCT PREG LOT # (test code = 3575) POCT PREG TEST DATE ( test code = 3576) Lab Interpretation (test cod e = 53558-9) Normal [facility] Urinalysis W Specific [id number] 16:19:00* Test Item Value Reference Range Interpretation [...] Cloudy Lab Interpretation (test cod e = 85520-2) Abnormal [facility] [id number] 19:24:00* Test Item Value Reference Range Interpretation Comme nts POCT PREG (test code = 1605) Negative On board controls acceptable with C Line (test code = 3574) Yes POCT PREG LOT # (test code = 3575) POCT PREG TEST DATE (test code = 3576) CECIL (test code = CECIL) accurate developme nt and interpretation of all internal controls Lab Interpretation (test code = 38193-3) Normal [facility] [id number] 19:24:00* Test Item Value Reference Range Interpretation Comme nts POCT PREG (test code = 1605) Negative On board controls acceptable with C Line (test code = 3574) Yes POCT PREG LOT # (test code = 3575) POCT PREG TEST DATE (test code = 3576) CECIL (test code = CECIL) accurate developme nt and interpretation of all internal controls Lab Interpretation (test code = 71120-3) Normal [facility] Urinalysis W Specific [id number] 19:20:00* Test Item Value Reference Range Interpretation [...] internal controls Lab Interpretation (test code = 37074-7) [facility] W Specific [id number] 19:20:00* Test Item Value Reference Range Interpretation [...] internal controls Lab Interpretation (test code = 08719-4) [facility] - SYPHILIS [id number] 15:05:59* Test Item Value Reference Range Interpretation Comme nts Syphilis IgG/IgM (test code = 78434-4) Non-reactive Non-reactive CECIL (test code = CECIL) Non-reactive - No serologic evidence of T. pallidum infection. Cannot exclude incubating or early syphilis. Submit a second specimen in 2-4 weeks if syphilis is clinically suspected. Equivocal - Further testing to follow. Reactive - Further testing to follow. Lab Interpretation (test code = 20214-0) Normal [facility] ONLY - SYPHILIS [id number] 15:05:59* Test Item Value Reference Range Interpretation Comme nts Syphilis IgG/IgM (test code = 55027-1) Non-reactive Non-reactive CECIL (test code = CECIL) Non-reactive - No serologic evidence of T. pallidum infection. Cannot exclude incubating or early syphilis. Submit a second specimen in 2-4 weeks if syphilis is clinically suspected. Equivocal - Further testing to follow. Reactive - Further testing to follow. Lab Interpretation (test code = 59149-6) Normal [facility] ONLY - SYPHILIS [id number] 15:05:59* Test Item Value Reference Range Interpretation Comme nts Syphilis IgG/IgM (test code = 68333-7) Non-reactive Non-reactive CECIL (test code = CECIL) Non-reactive - No serologic evidence of T. pallidum infection. Cannot exclude incubating or early syphilis. Submit a second specimen in 2-4 weeks if syphilis is clinically suspected. Equivocal - Further testing to follow. Reactive - Further testing to follow. Lab Interpretation (test code = 91932-8) Normal [facility] 1/2 AG-AB WITH [id number] 06:58:27* Test Item Value Reference Range Interpretation Comme nts HIV Semi-quantitative (test code = 21023-9) 0.12 Negative CECIL (test code = CECIL) Non-reactive for HIV-1 antigen and HIV-1/HIV-2 antibodies. ?No laboratory evidence of HIV infection. ?Repeat in 2-4 weeks if acute HIV infection is suspected. [facility] 1/2 AG-AB WITH [id number] 06:58:27* Test Item Value Reference Range Interpretation Comme nts HIV Semi-quantitative (test code = 45840-2) 0.12 Negative CECIL (test code = CECIL) Non-reactive for HIV-1 antigen and HIV-1/HIV-2 antibodies. ?No laboratory evidence of HIV infection. ?Repeat in 2-4 weeks if acute HIV infection is suspected. [facility] 1/2 AG-AB WITH [id number] 06:58:27* Test Item Value Reference Range Interpretation Comme nts HIV Semi-quantitative (test code = 04549-3) 0.12 Negative CECIL (test code = CECIL) Non-reactive for HIV-1 antigen and HIV-1/HIV-2 antibodies. ?No laboratory evidence of HIV infection. ?Repeat in 2-4 weeks if acute HIV infection is suspected. [facility] [id number] 05:29:42* Test Item Value Reference Range Interpretation Comme nts HCV Ab (test code = 54163-3) Negative HCV Semi-Quantitative (test code = 01911-7) 0.01 [facility] [id number] 05:29:42* Test Item Value Reference Range Interpretation Comme nts HCV Ab (test code = 97431-3) Negative HCV Semi-Quantitative (test code = 84348-5) 0.01 [facility] [id number] 05:29:42* Test Item Value Reference Range Interpretation Comme nts HCV Ab (test code = 69351-9) Negative HCV Semi-Quantitative (test code = 69670-9) 0.01 [facility] (A1C)2023-03-01 05:25:25* Test Item Value Reference Range Interpretation Comme nts HGB A1C (test code = 4548-4) 5.3 % 4.0-5.7 CECIL (test code = CECIL) Reference RangesNormal: <5.7%Prediabetes: 5.7 - 6.4%Diabetes: > 6.5% Lab Interpretation (test code = 19750-0) Normal [facility]C)2023-03-01 05:25:25* Test Item Value Reference Range Interpretation Comme nts HGB A1C (test code = 4548-4) 5.3 % 4.0-5.7 CECIL (test code = CECIL) Reference RangesNormal: <5.7%Prediabetes: 5.7 - 6.4%Diabetes: > 6.5% Lab Interpretation (test code = 19546-5) Normal [facility]A1C)2023-03-01 05:25:25* Test Item Value Reference Range Interpretation Comme nts HGB A1C (test code = 4548-4) 5.3 % 4.0-5.7 CECIL (test code = CECIL) Reference RangesNormal: <5.7%Prediabetes: 5.7 - 6.4%Diabetes: > 6.5% Lab Interpretation (test code = 85224-2) Normal [facility] WITH [id number] 05:04:15* Test Item Value Reference Range Interpretation [...] 32.5 g/dL 31.6-35.1 RDW-SD (test code = 00719-7) 43.6 fL 39.0-49.9 RDW-CV (test code = 788-0) 12.8 % 12.0-15.5 PLT (test code = 777-3) 326 See_Comment [Automated messa ge] The system which generated this result transmitted reference range: 166 - 358 10*3/?L. The reference range was not used to interpret this result as normal/abnormal. MPV (test code = 84463-2) 10.1 fL 9.5-12.9 NRBC/100 WBC (test code = 8180150638) 0.0 See_Comment [Automated Yorn ssage] The system which generated this result transmitted reference range: 0.0 - 10.0 /100 WBCs. The reference range was not used to interpret this result as normal/abnormal. NRBC x10^3 (test code = 9680382978) See_Comment [Automated messa ge] The system which generated this result transmitted reference range: 10*3/?L. The reference range was not used to interpret this result as normal/abnormal. GRAN MAT (NEUT) % (test code = 770-8) 59.5 % IMM GRAN % (test code = 0403256131) 0.10 % LYMPH % (test code = 736-9) 31.2 % MONO % (test code = 5905-5) 5.9 % EOS % (test code = 713-8) 2.8 % BASO % (test code = 706-2) 0.5 % GRAN MAT x10^3(ANC) (test code = 4235664345) 5.43 10*3/uL 1.88-7.09 IMM GRAN x10^3 (test code = 3784127678) 0.00-0.06 LYMPH x10^3 (test code = 731-0) 2.85 10*3/uL 1.32-3.29 MONO x10^3 (test code = 742-7) 0.54 10*3/uL 0.33-0.92 EOS x10^3 (test code = 711-2) 0.26 10*3/uL 0.03-0.39 BASO x10^3 (test code = 704-7) 0.05 10*3/uL 0.01-0.07 Lab Interpretation (test code = 19758-9) Abnormal [facility] WITH [id number] 05:04:15* Test Item Value Reference Range Interpretation [...] 32.5 g/dL 31.6-35.1 RDW-SD (test code = 11342-8) 43.6 fL 39.0-49.9 RDW-CV (test code = 788-0) 12.8 % 12.0-15.5 PLT (test code = 777-3) 326 See_Comment [Automated messa ge] The system which generated this result transmitted reference range: 166 - 358 10*3/?L. The reference range was not used to interpret this result as normal/abnormal. MPV (test code = 65426-7) 10.1 fL 9.5-12.9 NRBC/100 WBC (test code = 0418562118) 0.0 See_Comment [Automated Yorn ssage] The system which generated this result transmitted reference range: 0.0 - 10.0 /100 WBCs. The reference range was not used to interpret this result as normal/abnormal. NRBC x10^3 (test code = 3976982236) See_Comment [Automated messa ge] The system which generated this result transmitted reference range: 10*3/?L. The reference range was not used to interpret this result as normal/abnormal. GRAN MAT (NEUT) % (test code = 770-8) 59.5 % IMM GRAN % (test code = 6656736852) 0.10 % LYMPH % (test code = 736-9) 31.2 % MONO % (test code = 5905-5) 5.9 % EOS % (test code = 713-8) 2.8 % BASO % (test code = 706-2) 0.5 % GRAN MAT x10^3(ANC) (test code = 6719304590) 5.43 10*3/uL 1.88-7.09 IMM GRAN x10^3 (test code = 9685647434) 0.00-0.06 LYMPH x10^3 (test code = 731-0) 2.85 10*3/uL 1.32-3.29 MONO x10^3 (test code = 742-7) 0.54 10*3/uL 0.33-0.92 EOS x10^3 (test code = 711-2) 0.26 10*3/uL 0.03-0.39 BASO x10^3 (test code = 704-7) 0.05 10*3/uL 0.01-0.07 Lab Interpretation (test code = 13278-4) Abnormal [facility] WITH [id number] 05:04:15* Test Item Value Reference Range Interpretation [...] 32.5 g/dL 31.6-35.1 RDW-SD (test code = 09075-3) 43.6 fL 39.0-49.9 RDW-CV (test code = 788-0) 12.8 % 12.0-15.5 PLT (test code = 777-3) 326 See_Comment [Automated messa ge] The system which generated this result transmitted reference range: 166 - 358 10*3/?L. The reference range was not used to interpret this result as normal/abnormal. MPV (test code = 07609-3) 10.1 fL 9.5-12.9 NRBC/100 WBC (test code = 1493813207) 0.0 See_Comment [Automated me ssage] The system which generated this result transmitted reference range: 0.0 - 10.0 /100 WBCs. The reference range was not used to interpret this result as normal/abnormal. NRBC x10^3 (test code = 6187476404) See_Comment [Automated messa ge] The system which generated this result transmitted reference range: 10*3/?L. The reference range was not used to interpret this result as normal/abnormal. GRAN MAT (NEUT) % (test code = 770-8) 59.5 % IMM GRAN % (test code = 5292341241) 0.10 % LYMPH % (test code = 736-9) 31.2 % MONO % (test code = 5905-5) 5.9 % EOS % (test code = 713-8) 2.8 % BASO % (test code = 706-2) 0.5 % GRAN MAT x10^3(ANC) (test code = 3609633192) 5.43 10*3/uL 1.88-7.09 IMM GRAN x10^3 (test code = 9317922849) 0.00-0.06 LYMPH x10^3 (test code = 731-0) 2.85 10*3/uL 1.32-3.29 MONO x10^3 (test code = 742-7) 0.54 10*3/uL 0.33-0.92 EOS x10^3 (test code = 711-2) 0.26 10*3/uL 0.03-0.39 BASO x10^3 (test code = 704-7) 0.05 10*3/uL 0.01-0.07 Lab Interpretation (test code = 44121-1) [facility]normal [facility], [id number] 14:10:00 * Test Item Value Reference Range [...] glycoprotein 1 IgG and IgM panel - [id number] 19:14:00* Test Item Value Reference Range Interpretation Comme nts beta 2 glyco,IgG (test code = beta 2 glyco,IgG) <9 0-20 beta 2 glyco,IgA (test code = beta 2 glyco,IgA) <9 0-25 beta 2 glycoprot,IgM (test c ode = beta 2 glycoprot,IgM) <9 0-32 [facility] - [id number] 19:14:00 * Test Item Value Reference Range [...] [facility] panel - [id number] 09:40:09* Test Item Value Reference Range Interpretation Comme nts Leukocytes (test code = Leukocytes) Trace Nitrite (test code = Nitrite) negative Urobilinogen (test code = Urobilinogen) .2 Protein (test code = Protein) Negative pH (test code = pH) 5.5 Blood (test code = Blood) Negative Specific Topanga (test code = Specific Topanga) 1.030 Ketone (test code = Ketone) Negative Bilirubin (test code = Bilirubin) Small Glucose (test code = Glucose) Negative Appearance (test code = Appearance) Cloudy Color (test code = Color) Yellow [facility] - cancer history assessment [id number] 08:33:00 * Test Item Value Reference Range Interpretation Comme [facility] - cancer history assessment result (test code = [facility] - cancer history assessment result) does not meet criteria [facility] + [facility] + TV, DNA, urine/[id number] 00:00:00* Test Item Value Reference Range Interpretation Comme nts vance - swab (test code = vance - swab) normal gardnerella (test code = gardnerella) abnormal A CT/NG (test code = CT/NG) normal trichomonas vaginalis addon - swab (test code = trichomonas vaginalis addon - swab) normal [facility]dipstick) panel - [id number] 14:03:06* Test Item Value Reference Range Interpretation Comme [facility] Leukocytes (test code = Leukocytes) Negative Nitrite (test code = Nitrite) negative Urobilinogen (test code = Urobilinogen) .2 Protein (test code = Protein) Negative pH (test code = pH) 6.0 Blood (test code = Blood) Negative Specific Topanga (test code = Specific Topanga) 1.030 Ketone (test code = Ketone) Negative Bilirubin (test code = Bilirubin) Negative Glucose (test code = Glucose) Negative Appearance (test code = Appearance) Clear Color (test code = Color) Yellow [facility] [id number] 20:02:00* Test Item Value Reference Range Interpretation Comme [facility] POCT PREG (test code = 1605) Negative On board controls acceptable with C Line (test code = 3574) Yes POCT PREG LOT # (test code = 3575) POCT PREG TEST DATE ( test code = 3576) [facility] Notes Date/Time Note Provider Source 2024-12-19 16:37:58 Name and verified. Pt stated that she started spotting right now. Only with wipe. Cramping "a little while ago" 5/10 pain. Denies pain at this time. Pt is currently on pelvic rest. Advised to continue pelvic rest and to start Progesterone. ER precautions given and will follow up with her on Sunday. Pt asked about HCG level. Explained to pt that it was not done. Pt verbalized understanding. OLYA CHEN RN 12/19/2024 4:44 PM TICAL NURSE Olya Chen RN [facility] 2024-12-19 16:23:40 Derek Garcia is a 29 year old female Called the clinic earlier, was prescribed progesterone. Pt calling again to talk to a nurse she states she started spotting, she is concerned and will like a call back for advice TICAL NURSE Ursula Torrez [facility] 2024-12-19 14:06:59 Patient advised per herbert Blake to be seen in 2 weeks for usg. Appointment made Dick Malave RN 12/19/2024 2:07 PM TICAL NURSE Dick Malave RN [facility] 2024-12-19 13:55:41 Returned patients call regarding results and recommendations per Dr Whitley: Progesterone level equivocal: Vaginal progesterone prescribed on 12/18/2024. Please use as directed. VZV and rubella nonimmune: Please give precautions. Recommend vaccines Altagracia Whitley MD 12/19/2024 12:57 PM Patient verbalized understanding of all results and recommendations. Patient is requesting to have another ultrasound completed in 2 weeks since she is beginning the progesterone supplements. Patient advised I would have to speak with the provider. Patient verbalized understanding. Dick Malave RN 12/19/2024 1:[address] [facility] 2024-12-19 12:09:06 Derek Garcia is a 29 year old female Calling to go over test results. Pt was advised respond time frame can be up to two business days. TICAL NURSE Ursula Torrez [facility] 2024-12-19 11:39:48 Pt would like to speak with a nurse about results. TICAL NURSE Anita Larsen [facility] 2024-12-18 11:15:00 50 Glucola @ 1112. No issues. Pt finished @ 1112 Draw Time @ 1212. [facility] 2024-12-18 11:15:00 Images from the original note were not included. Venipuncture collection performed by clean technique on the right anticubitus. Total of 1 attempts were made. Slight pressure and a bandage/dressing were applied to the site(s). The patient experienced no complications. The following specimens were processed according to instructions and sent to [facility] laboratories per lab order on 12/18/2024: LT BLUE 3 SST 6 RED 1 LAV 2 PPT DK GREEN (LiHep) DK GREEN (SodH) SHELLEY DK BLUE (K2) DK BLUE (S) ACD Blood Culture NIPT/NTD [facility] 2024-12-18 11:15:00 Addended by: SHARIFA PAZ on: 12/18/2024 03:18 PM Modules accepted: Orders TICAL NURSE Sharifa Boyce [facility] 2024-12-18 11:15:00 Addended by: SHARIFA PAZ on: 12/18/2024 06:24 PM Modules accepted: Orders [facility] 2024-12-18 10:00:00 Age: [age] year old GA: 8w1d by reported THOMAS Nausea without vomiting -Not bothersome -Discussed sharonda dxrs-jck-qjzxhug as needed. 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 Her previous miscarriages never had a heartbeat. -Has never been evaluated for recurrent miscarriages -Antiphospholipid syndrome labs ordered -Will preemptively start on vaginal progesterone while awaiting progesterone level Intermittent vaginal spotting -Rh+ -None today -Transvaginal USG for FHT: Single live IUP measured 8 0/7 weeks, not consistent with LMP. Will date by previous ultrasound unless clinically indicated otherwise -Recommend pelvic rest Excessive weight gain - TWG 26 lbs. Advise walking at least 30 minutes daily. Sensible healthy diet. Vaginal discharge -GC/CT and vaginal pathogen collected New OB labs today. No complaints. Discussed do's and don'ts of , safe foods, safe medications. Reviewed Zika virus precautions. I discussed the call schedule and that I might not be the physician delivering her. I discussed I deliver my patients at [facility]. Expectations for weight gain this include 15-25 pounds. Encouraged to call if have any additional questions or concerns. Discussed aneuploidy and carrier screening; patient opts for panorama/Horizon. Discussed with patient that she can have HEALTHY support with her during her delivery (which is subject to change). Declined flu vaccine today Follow-up in 4 weeks for visit with [employer] Follow-up in 8 weeks for pedal visit with Whitley [facility] 2024-12-05 18:25:18 Registration called and said patient left because she was not getting and ultrasound. Patient eloped after being seen by provider. ER Fajardo RN [facility] 2024-05-16 15:57:40 Called patient, notified patient positive for UTI, BV, and Yeast. Educated patient on medications, good perineal hygiene, and increasing fluids. Pt verbalized understanding. ISA GARCIA RN 05/16/2024 3:57 PM Isa Garcia RN [facility] 2024-05-16 14:34:04 Please call patient and let her know she has UTI, BV, and vaginal yeast. All erx sent. [facility] 2024-04-09 00:17:00 [facility] ([facility]) Hospitalist History Physical REPORT#:[id number] REPORT STATUS: Signed REPORT INITIALIZATION DATE:04/09/24 TIME: 16 PATIENT: DEREK GARCIA UNIT #: [id number] ROOM/BED: : 95 AGE: 28 SEX: F ATTEND: Flor Rouse MD ADM DT: AUTHOR: Rosaline Goss MD REPT SERVICE DT/TIME: 04/09/2416 * ALL edits or amendments must be made on the electronic/computer document * History of Present Illness HPI Chief complaint: Suspected ectopic HPI: 28 y/o presents as a self transported transport for evaluation of a suspected right ectopic . Patient presented to [facility] beds at the [facility] with a positive test and RLQ [...] % (Auto) (14.5 - 29.7 %) 20[address]5 [facility] % (Auto) (3.6 - 10.2 %) 6.7 Eos % (Auto) (0.0 - 3.0 %) 1.3 Baso % (Auto) (0.1 - 0.9 %) 0.3 Neut # (Auto) (K/mm3) 8.6 Lymph # (Auto) (K/mm3) 2.5 [facility] # (Auto) (K/mm3) 0.8 Eos # (Auto) (K/mm3) 0.16 Baso # (Auto) (K/mm3) 0.0 Laboratory Tests 04/08 2201 Miscellaneous Maternal Serum HCG (mIU/mL) 2719 Laboratory Tests 04/08 2201 Urines Urine Color (YELLOW) YELLOW Urine Appearance (CLEAR) Slightly-Cloudy Urine pH (5 - 9) 5.0 Ur Specific Topanga (1.001 - 1.035) 1.023 Urine Protein (NEG) [...] 2210 Report Impression - Status: SIGNED Entered: 04/08/20242 IMPRESSION: No intrauterine . Echogenic structure in the right adnexa measuring 2.1 x 1.3 x 1.7 cm may represent an ectopic . Thickened endometrium measures 1.7 cm with multiple nonspecific prominent vessels/vasculature within the myometrium. [facility]: [facility] Darinel Hall M.D. ULTRASOUND - US PREG UT [...] treat with the Methotrexate. at 0028 RPT #:[id number] END OF REPORT [facility] 2024-04-08 22:01:00 [facility] ([facility]) EMERGENCY PROVIDER REPORT REPORT#:[id number] REPORT STATUS: Signed DATE:04/08/24 TIME: 2200 PATIENT: DEREK GARCIA UNIT #: [id number] ROOM/BED: AGE: 28 SEX: F PCP PHYS: [...] is a G6, P0 who transferred from [facility] due to concerns of ectopic . The [...] 04/08 2143 Pulse 85 04/08 2143 Resp 04/08 Last Documented: Result Date Time Pulse Ox [...] % (Auto) (14.5 - 29.7 %) [address]5 [facility] % (Auto) (3.6 - 10.2 %) 6.7 Eos % (Auto) (0.0 - 3.0 %) 1.3 Baso % (Auto) (0.1 - 0.9 %) 0.3 Neut # (Auto) (K/mm3) 8.6 Lymph # (Auto) (K/mm3) 2.5 [facility] # (Auto) (K/mm3) 0.8 Eos # (Auto) (K/mm3) 0.16 Baso # (Auto) (K/mm3) 0.0 Miscellaneous Maternal Serum HCG (mIU/mL) 2719 Urines Urine Color (YELLOW) YELLOW Urine Appearance (CLEAR) Slightly-Cloudy Urine pH (5 - 9) 5.0 Ur Specific Topanga (1.001 - 1.035) 1.023 Urine Protein (NEG) [...] - US PREG EVAL 1ST TRIMTR 04/08 221 Report Impression - Status: SIGNED Entered: 04/08/2024 2304 IMPRESSION: No intrauterine . Echogenic structure in the right adnexa measuring 2.1 x 1.3 x 1.7 cm may represent an ectopic . Thickened endometrium measures 1.7 cm with multiple nonspecific prominent vessels/vasculature within the myometrium. Impression By: [facility] Ebony Hall M.D. Lab Imaging Statement Laboratory radiographic studies reviewed and considered in the medical decision-making. Point of Care Testing Pulse Oximetry Pulse Ox % 97 On: Room air Interpretation Interpreted by me Time 2142 Re-Evaluation MDM )( Re-Evaluation/Progress #1 [...] Consultation Consultation Referral/Consult Name Rosaline Goss MD Machining Manager Called PHYSICIAN GYNECOLOGIST Machining Manager Discussed with [employer] ascp consultant Requested Call Time 2349 Requested Call [...] 79 04/09 118 Resp 16 04/09 118 All vital signs available at the time [...] a call to 911. at 0523 RPT #:[id number] END OF REPORT [facility] 2023-10-24 13:00:00 Addended by: RADHA JAMES on: 10/25/2023 03:51 PM Modules accepted: Orders [facility]
--- NOTE | 2024-12-23 19:39 | RAD REPORT ---
EXAMINATION: US FIRST TRIMESTER TRANSVAGINAL WITH DOPPLER CLINICAL INDICATION: with vaginal bleeding TECHNIQUE: Real-time obstetrical ultrasonography of the maternal pelvis and first trimester was performed transvaginally. Color and spectral Doppler evaluation of the ovaries was performed. COMPARISON: December 12, 2024 FINDINGS: The uterus measures 10 x 6 x 7 cm. A gestational sac is present within the endometrium. Within this is a pole crown-rump length 1. 8 cm. Cardiac activity 166 bpm. Right ovary normal in size and echotexture Left ovary normal in size and echotexture Right and left adnexa unremarkable No significant free fluid IMPRESSION: Single live intrauterine with an estimated gestational age 9 weeks 0 days THOMAS 07/28/2025
--- NOTE | 2024-12-23 20:03 | EDPHYS ---
Physician Documentation [facility] Name: Beena Garcia Age: 29 yrs Sex: Female : 1995 Arrival Date: 12/23/2024 Time: 18:22 Bed External Waiting Private MD: ED Physician Eduard Grady HPI: 12/23 18:46 This 29 yrs old Female presents to ER via Ambulatory with complaints of kb Vaginal Bleeding, + Preg <12wks, Abdominal Cramping. 18:46 Patient is a 29-year-old female who is 9 weeks presents for vaginal spotting kb that started 2 days ago. States she also stopped having her symptoms at the same time, including breast tenderness and nausea. G8, P0 a 7. LMP 10/14/[address] Tineo. Historical: - Allergies: 18:46 Codeine (Hives); ld1 - PMHx: 18:46 UTI; ld1 - PSHx: 18:46 L fallopian tube removed; ld1 - Immunization history:: Adult Immunizations up to date. - Infectious Disease History:: Denies. - Social history:: Smoking status: Patient denies any tobacco usage or history of. ROS: 18:46 Constitutional: As per HPI kb Exam: 18:46 Constitutional: This is a well developed, well nourished patient who is awake, alert, kb and in no acute distress. Head/Face: Normocephalic, atraumatic. ENT: Moist Mucous membranes Cardiovascular: Regular rate Respiratory: Respirations even and unlabored. No increased work of breathing. Talking in full sentences Abdomen/GI: Soft, non-tender. No distention Skin: Warm, dry with normal turgor. Normal color. MS/ Extremity: Pulses equal, no cyanosis. Neurovascular intact. Full, normal range of motion. Neuro: Awake and alert, GCS 15, oriented to person, place, time, and situation. Vital Signs: 18:44 BP 129 / 78; Pulse 82; Resp 18; Temp 98.1(TE); Pulse Ox 96% on R/A; Weight 72.57 kg; ld1 Height 5 ft. 0 in. ; Pain 4/10; 18:44 Body Mass Index 31.25 (72.57 kg, 152.4 cm) ld1 18:44 Pain Scale: Adult ld1 MDM: 18:26 Medical Screening Exam initiated kb 20:02 Differential diagnosis: threatened Ab, inevitable Ab. Data reviewed: vital signs, kb nurses notes. Counseling: I had a detailed discussion with the patient and/or guardian regarding the historical points, exam findings, and any diagnostic results supporting the discharge/admit diagnosis, radiology results, the need for outpatient follow up, an OB/Gyne specialist, to return to the emergency department if symptoms worsen or persist or if there are any questions or concerns that arise at home. 12/23 18:45 Order name: US Transvaginal Ob; Complete Time: 19:42 kb 12/23 18:45 Order name: IV Saline Lock kb 12/23 18:45 Order name: Labs collected and sent kb 12/23 18:45 Order name: NPO kb Administered Medications: No medications were administered Disposition Summary: 12/23/24 20:02 Discharge Ordered Notes: Location: Home kb Condition: Stable kb Diagnosis - Threatened kb Followup: kb - With: Emergency Department - When: As needed - Reason: Worsening of condition Followup: kb - With: Private Physician - When: 2 - 3 days - Reason: Recheck today's complaints, Continuance of care, Re-evaluation by your physician Discharge Instructions: - Discharge Summary Sheet kb - Threatened Miscarriage, [id number] kb - Vaginal Bleeding During , First Trimester, [id number] kb Forms: - Medication Reconciliation Form kb - Antibiotic Education kb - Prescription Opioid Use kb - Patient Portal Instructions kb - Leadership Thank You Letter kb Signatures: Dispatcher [employer] Ivonne James, PAEDIATRIC THORACIC PHYSICIAN-C PAEDIATRIC THORACIC PHYSICIAN-Marleny Garvey, RN RN ld1 Corrections: (The following items were deleted from the chart) 18:46 18:46 ABO/RH TYPING+BB.LAB.BRZ ordered. EDKY EDMS 18:46 18:46 BASIC METABOLIC PANEL+C.LAB.BRZ ordered. EDKY EDMS 18:46 18:46 CBC+H.LAB.BRZ ordered. EDKY EDMS 18:46 18:46 Test, Urine+UC.LAB.BRZ ordered. EDKY EDMS 18:46 18:46 QUANTITATIVE HCG+C.LAB.BRZ ordered. EDKY EDMS 18:46 18:46 Urinalysis+U.LAB.BRZ ordered. EDMS EDMS 18:46 18:46 Transvaginal Ob+US.RAD.BRZ ordered. EDMS EDMS
--- NOTE | 2024-12-23 20:03 | ER ---
Nurse's Notes [facility] Name: Beena Garcia Age: 29 yrs Sex: Female : 1995 Arrival Date: 12/23/2024 Time: 18:22 Bed External Waiting Private MD: Diagnosis: Threatened Presentation: 12/23 18:44 Chief complaint: Patient states: Pt reports spotting for 2 days. Cramping. Coronavirus ld1 screen: At this time, the client does not indicate any symptoms associated with coronavirus-19. Ebola Screen: No symptoms or risks identified at this time. Initial Sepsis Screen: Does the patient meet any 2 criteria? No. Patient's initial sepsis screen is negative. Does the patient have a suspected source of infection? No. Patient's initial sepsis screen is negative. Risk Assessment: Do you want to hurt yourself or someone else? Patient reports no desire to harm self or others. Onset of symptoms was December 23, 2024. 18:44 Method Of Arrival: Ambulatory ld1 18:44 Acuity: LETTY 3 ld1 Triage Assessment: 18:46 General: Appears in no apparent distress. comfortable, Behavior is calm, cooperative, ld1 appropriate for age. Pain: Complains of pain in pelvis Pain does not radiate. Pain currently is 8 out of 10 on a pain scale. Quality of pain is described as throbbing. EENT: No signs and/or symptoms were reported regarding the EENT system. Neuro: Level of Consciousness is awake, alert, obeys commands, Oriented to person, place, time, situation, Appropriate for age. Cardiovascular: Capillary refill < 3 seconds Patient's skin is warm and dry. Respiratory: Airway is patent Respiratory effort is even, unlabored. GI: Abdomen is round non-distended. : No signs and/or symptoms were reported regarding the genitourinary system. Derm: No signs and/or symptoms reported regarding the dermatologic system. Musculoskeletal: No signs and/or symptoms reported regarding the musculoskeletal system. Historical: - Allergies: 18:46 Codeine (Hives); ld1 - PMHx: 18:46 UTI; ld1 - PSHx: 18:46 L fallopian tube removed; ld1 - Immunization history:: Adult Immunizations up to date. - Infectious Disease History:: Denies. - Social history:: Smoking status: Patient denies any tobacco usage or history of. Screenin:[facility] ED Fall Risk Assessment (Adult) History of falling in the last 3 months, ap3 including since admission No falls in past 3 months (0 pts) Confusion or Disorientation No (0 pts) Intoxicated or Sedated No (0 pts) Impaired Gait No (0 pts) Mobility Assist Device Used No (0 pt) Altered Elimination No (0 pt) Score/Fall Risk Level 0 - 2 = Low Risk Oriented to surroundings, Maintained a safe environment, Educated pt \T\ family on fall prevention, incl call for assistance when getting out of bed, Assessed \T\ reinforced patient's understanding of fall precautions, Hourly rounding (assess needs \T\ fall precautionary measures) done, Used ambulatory aids as needed (educated on \T\ assisted with). Abuse screen: Denies threats or abuse. Nutritional screening: No deficits noted. Tuberculosis screening: No symptoms or risk factors identified. Vital Signs: 18:44 BP 129 / 78; Pulse 82; Resp 18; Temp 98.1(TE); Pulse Ox 96% on R/A; Weight 72.57 kg; ld1 Height 5 ft. 0 in. ; Pain 4/10; 18:44 Body Mass Index 31.25 (72.57 kg, 152.4 cm) ld1 18:44 Pain Scale: Adult ld1 ED Course: 18:23 Patient arrived in ED. mr 18:26 [facility]von[facility] Thompson [facility]C [facility] kb 18:26 Eduard Grady MD is Attending Physician. kb 18:46 Triage completed. ld1 18:46 Arm band placed on right wrist. ld1 19:12 US Transvaginal Ob In Process Unspecified. EDMS 21:10 Patient has correct armband on for positive identification. Provided Education on:. ap3 21:10 No provider procedures requiring assistance completed. Patient did not have IV access ap3 during this emergency room visit. Administered Medications: No medications were administered Medication: 21:10 VIS not applicable for this client. ap3 Outcome: 20:02 Discharge ordered by . kb 21:09 Discharged to home ambulatory, ap3 21:09 Condition: good 21:09 Discharge instructions given to patient departed prior to instructions Instructed on discharge instructions, follow up and referral plans. 21:11 Patient left the ED. ap3 Signatures: Dispatcher [employer] Ivonne James, FUNERAL GREETER-C FUNERAL GREETER-Ckb Pizano, [place], Reg Reg mr Leny Palacios, RN RN ap3 Marleny Liu RN RN ld1
[2024-12-23 21:51] VITALS: BP 129/78; TEMP 98.1; O2SAT 96
== END 2024-12-23 21:11 | disposition home or self-care (01) ==
LOC: ER 18:22
DX: O20.0 Threatened abortion (principal); Z3A.09 9 weeks gestation of pregnancy
CPT/HCPCS: 76817; 99282

== ENCOUNTER 2024-12-26 22:18 | Emergency (ER) | payer OTHER ==
--- OUTSIDE RECORDS SUMMARY | 2024-12-26 22:23 | XMS REPORT | Continuity of Care Document ---
Author Name Unknown Address [address] [facility] [facility] [address] [id number] [facility] Address [address] [facility] [address] [place] [address] Care Team Providers Care Surfacer Operator Name Role Phone STEPHANIE HICKS Primary Care Physician Unav ailable ALTAGRACIA WHITLEY Attending Clinician Unavailable ALTAGRACIA WHITLEY Attending Clinician Unavailable JAD PADRON Attending Clinician Unavailable Altagracia Whitley MD Attending Clinician [phone], [facility] Attending Clinician Unavailable STEPHANIE HICKS Attending Clinician Unavail able MARCUS MCKEON Attending Clinician Unavail able MARCUS MCKEON Attending Clinician Unavail able Marcus Mckeon MD Attending Clinician [phone] ENA SMALL Attending Clinician Unavaila Shelby Tavarez Attending Clinician [phone] SHELBY MERCER Attending Clinician Unavailable Stephanie Parisi Attending Clinician + Ena Small CNM Attending Clinician [phone] Stephanie Parisi Attending Clinician + Flor Rouse Attending Clinician Unavailable ELISE HERNANDEZ Attending Clinician Unavailyarelis Blunt Attending Clinician Unavailable ERICH TAYLOR Attending Clinician Unavailable UNKNOWN, ATTENDING Attending Clinician Unavailab LORELEI DaveCY Attending Clinician Unavailable Radha James PA-C Attending Clinician [phone] Unknown, Attending Attending Clinician Unavailab stapleton Doctor Unassigned, [place] Attending Clinician U IVY Pabon Attending Clinician UnavailVELIA Mcduffie Attending Clinician Unavailable RICHARD AMAYA Attending Clinician UnavailKARLA Ivory Attending Clinician Unavailyarelis Barreto, [facility] Attending Clinician Unavailable Ida Marroquin Attending Clinician [phone] Richard Machuca Attending Clinician UnaPardeep Smart DO Attending Clinician [phone] IDA VARELA Attending Clinician UnavailLyndon Alvarez Admitting Clinician Unavailab St Admitting Clinician Unavailable Payers Payer Name Policy Type Policy Number Effective Date Expirati on Date Source [place] [employer] [id number] 2022 00:00:00 [facility] [id number] 2023 00:00:00 [facility] (MEDICAID HMO) [id number] 2016 00:00:00 MEDICAID PENDING PENDING 2021 00:00:00 W-RM[facility]P [id number] 2017 00:00:00 Problems Condition Name Condition Details Condition Category Status Onset Date Resolution Date Last Treatment Date Treating Clinician Comments Source Obesity in Obesity in Disease Active 2-27 00:00: 00 [facility] Excessive weight gain Excessive weight gain Disease Active 2-27 00:00: 00 [facility] of left fallopian tube of Left Fallopian Tube Problem Active 01-31 00:00: 00 [facility] High risk due to recurrent loss High Risk Due to Recurrent Loss Problem Active - 00:00: 00 [facility] History of abnormal cervical Pap smear History of abnormal cervical Pap smear Disease Active - 00:00: 00 Overview: Formattin g of this note might be different from the original. 2017 Negative PAP +[id number] Negative PAP +[id number] Negative PAP +HPV, negative [id number] Negative PAP and [id number] Negative PAP and [id number] pending [facility] Encounter for other contracept rishi management Encounter for other contracept rishi management Disease Resolve d 05-13 00:00: 00 2024-12-18 00:00:00 2024-12-18 11:17:12 [facility] Over weight Over weight Disease Resolve d 05-13 00:00: 00 2024-12-18 00:00:00 2024-12-18 11:17:14 [facility] Other general counseling and advice for contracept rishi management Other general counseling and advice for contracept rishi management Disease Resolve d 03-31 00:00: 00 2024-05-13 00:00:00 2024-05-13 13:17:52 [facility] Over weight Over weight Disease Resolve d 2016-10 00:00: 00 2024-05-13 00:00:00 2024-05-13 13:17:50 [facility] Cyst of right ovary Cyst of right ovary Disease Resolve d 04-13 00:00: 00 2023-03-03 00:00:00 2023-03-03 12:56:01 [facility] Susceptibl e to varicella (non-immun e), currently Susceptibl e to varicella (non-immun e), currently Disease Resolve d - 00:00: 00 2022-03-31 00:00:00 2022-03-31 16:16:07 [facility] Rubella non-immune status, antepartum Rubella non-immune status, antepartum Disease Resolve d - 00:00: 00 2022-03-31 00:00:00 2022-03-31 16:16:09 [facility] High-risk in first trimester High-risk in first trimester Disease Active 6- 00:00: 00 2022-03-31 00:00:00 2022-03-31 16:16:10 [facility] History of miscarriag e History of miscarriag e Disease Resolve d 6-01 00:00: 00 2022-03-31 00:00:00 2022-03-31 16:16:11 [facility] Vaginal bleeding in Vaginal bleeding in Disease Resolve d 6-01 00:00: 00 2022-03-31 00:00:00 2022-03-31 16:16:05 [facility] Dysuria Dysuria Disease Resolve d 5-05 00:00: 00 2021-03-22 00:00:00 2021-03-22 16:30:58 [facility] Maternal varicella, non-immune Maternal varicella, non-immune Disease Resolve d 3-23 00:00: 00 2021-03-22 00:00:00 2021-03-22 16:31:00 [facility] Screening examinatio n for STD (sexually transmitte d disease) Screening examinatio n for STD (sexually transmitte d disease) Disease Resolve d 3-16 00:00: 00 2021-03-22 00:00:00 2021-03-22 16:31:03 [facility] UTI symptoms UTI symptoms Disease Resolve d 3-16 00:00: 00 2021-03-22 00:00:00 2021-03-22 16:31:05 [facility] Contracept rishi management Contracept rishi management Disease Resolve d 2016-10 00:00: 00 2021-03-22 00:00:00 2021-03-22 16:30:57 [facility] Miscarriag e Miscarriag e Disease Resolve d - 00:00: 00 2017-09-21 00:00:00 2017-09-21 14:05:51 [facility] Other general counseling and advice for contracept rishi management Other general counseling and advice for contracept rishi management Disease Resolve d -20 00:00: 00 2017-09-21 00:00:00 2017-09-21 14:05:51 [facility] Missed Missed Disease Resolve d 2015-10-19 00:00: 00 2017-09-21 00:00:00 2017-09-21 14:05:50 [facility] Rubella non-immune status, antepartum Rubella non-immune status, antepartum Disease Resolve d 2015-10 00:00: 00 2017-09-21 00:00:00 2017-09-21 14:05:49 [facility] Supervisio n of high risk , antepartum Supervisio n of high risk , antepartum Disease Resolve d 2015-10 00:00: 00 2017-09-21 00:00:00 2017-09-21 14:05:47 [facility] Flu vaccine need Flu vaccine need Disease Resolve d 2015-10 00:00: 00 2017-09-21 00:00:00 2022-05-07 00:43:11 [facility] Surveillan ce of previously prescribed contracept rishi pill Surveillan ce of previously prescribed contracept rishi pill Disease Resolve d 03-30 00:00: 00 2016-09-06 00:00:00 2016-09-06 11:18:49 [facility] Allergies, Adverse Reactions, Alerts Allergy Name Allergy Type Status Severity Reaction(s) Onset Date Inactive Date Treating Clinician Comments Source codeine DA Active SV HIVES 04-08 00:00: 00 [facility] Codeine Propensi ty to adverse reaction s Active Hives 02-27 00:00: 00 [facility] CODEINE DRUG INGREDI Active Hives 02-27 00:00: 00 [facility] Codeine Allergy to substanc e Active [facility] Social History Social Habit Start Date Stop Date Quantity Comments Source ASSERTION 2024-11-05 00:00:00 [facility] intake 2024-12-18 00:00:00 2024-12-18 00:00:00 Ex-drinker (finding) [facility] History of Social function 2024-05-13 00:00:2024-05-13 00:00:00 [facility] Alcohol intake 2023-11-13 00:00:00 2023-11-13 00:00:00 Current drinker of alcohol (finding) [facility] Exposure to SARS-CoV-2 (event) 2023-02-18 00:00:00 2023-02-28 06:11:00 Not sure [facility] Alcohol Comment 2023-02-28 00:00:00 2023-02-28 00:00:00 social [facility] Tobacco use and exposure 2022-06-21 00:00:00 2022-06-21 00:00:00 Smokeless tobacco non-user [facility] Sex assigned at 1995 00:00:00 1995 00:00:00 [facility] Smoking Status Start Date Stop Date Source Never smoked tobacco [facility] Medications Ordered Medication Name Filled Medication Name Start Date Stop Date Current Medication? Ordering Clinician Indication Dosage Frequency Signature (SIG) Comments Components Source Vit Comb.10-Iro n-FA 65-1 mg Tab 12-18 10:12: 20 Yes Take by mouth. [facility] progesteron e 200 mg capsule 12-18 00:00: [id number] 1 pill in vagina nightly until 12 weeks of gestation [facility] metroNIDAZO LE 500 mg tablet 11-19 00:00: 00 12-18 00:00 :00 No [id number] 500mg Take 1 tablet by mouth every 12 (twelve) hours. [facility] fluconazole 150 mg tablet 11-18 00:00: 00 12-18 00:00 :00 No [id number] 150mg Take 1 tablet by mouth every 3 (three) days. [facility] norgestimat e-ethinyl estradioL (ORTHO TRI-CYCLEN, 28,) 0.18/0.215/ 0.25 mg-35 mcg (28) tablet 2023-10 00:00: 00 12-18 00:00 :00 No [id number] 1{tbl} Take 1 tablet by mouth in the morning. [facility] Nitrofurant oin&Nit. Macrocryst (MACROBID) 100 mg capsule 05-16 00:00: 00 05-27 04:59 :00 No [id number] 100mg Take 1 capsule by mouth in the morning and 1 capsule in the evening. Do all this for 10 days. [facility] metroNIDAZO LE 500 mg tablet 05-15 00:00: 00 05-23 04:59 :00 No [id number] 500mg Take 1 tablet by mouth in the morning and 1 tablet in the evening. Do all this for 7 days. [facility] fluconazole (DIFLUCAN) 150 mg tablet 05-15 00:00: 00 05-16 04:59 :00 No [id number] 150mg Take 1 tablet by mouth once now for 1 dose. [facility] phentermine HCl (PHENTERMIN E ORAL) 05-13 12:58: 39 12-18 00:00 :00 No Take by mouth. [facility] norgestimat e-ethinyl estradioL (ORTHO TRI-CYCLEN, 28,) 0.18/0.215/ 0.25 mg-35 mcg (28) tablet 05-13 00:00: 00 09-15 00:00 :00 No [id number] 1{tbl} Take 1 tablet by mouth in the morning. [facility] cefdinir 300 mg capsule - 00:00: 00 05-13 00:00 :00 No [id number] 300mg Take 1 capsule by mouth every 12 (twelve) hours. [facility] fluconazole (DIFLUCAN) 150 mg tablet 1-04 00:00: 00 05-13 00:00 :00 No [id number] 150mg Take 1 tablet by mouth every 72 (seventy-t wo) hours. [facility] Nitrofurant oin&Nit. Macrocryst (MACROBID) 100 mg capsule 1-03 00:00: 00 05-13 00:00 :00 No [id number] 100mg Take 1 capsule by mouth in the morning and 1 capsule in the evening. [facility] fluconazole (DIFLUCAN) 150 mg tablet 03-02 00:00: 00 03-03 04:59 :00 No [id number] 150mg Take 1 tablet by mouth once now for 1 dose. Take second tablet in 1 week [facility] phentermine HCl (PHENTERMIN E ORAL) 02-28 08:20: 44 Yes Take by mouth. [facility] norgestimat e-ethinyl estradioL (ORTHO TRI-CYCLEN, 28,) 0.18/0.215/ 0.25 mg-35 mcg (28) tablet 07-07 00:00: 00 02-28 00:00 :00 No [id number] 1{tbl} Take 1 tablet by mouth in the morning. [facility] Nitrofurant oin&Nit. Macrocryst (MACROBID) 100 mg capsule 04-03 00:00: 00 02-28 00:00 :00 No [id number] 100mg Take 1 capsule by mouth 2 (two) times daily. [facility] PNV 67-iron ps-folate no.1-dha (VITAFOL ULTRA) 29 mg iron- 1 mg-200 mg Cap 03-22 00:00: 00 10-28 00:00 :00 No [id number] 1{each} Take 1 Each by mouth daily. [facility] norgestimat e-ethinyl estradioL 0.18/0.215/ 0.25 mg-25 mcg tablet 02-23 00:00: 00 10-28 00:00 :00 No [id number] 1{tbl} Take 1 tablet by mouth daily. [facility] ibuprofen 800 mg tablet Take 1 tablet every 6 hours by oral route as needed. ibuprofen 800 mg tablet Take 1 tablet every 6 hours by oral route as needed. No 1 Q6H ibuprofen 800 mg tablet Take 1 tablet every 6 hours by oral route as needed. [facility] Diflucan 100 mg tablet Take 1 tablet every day by oral route for 3 days. Diflucan 100 mg tablet Take 1 tablet every day by oral route for 3 days. No 1 Q1D Diflucan 100 mg tablet Take 1 tablet every day by oral route for 3 days. [facility] Immunizations Ordered Immunization Name Filled Immunization Name Date Status Comments Source HPV9 2019-09-10 00:00:00 Completed [facility] HPV9 2019-09-10 00:00:00 Completed [facility] HPV9 2019-09-10 00:00:00 Completed [facility] HPV9 2019-09-10 00:00:00 Completed [facility] HPV9 2019-09-10 00:00:00 Completed [facility] HPV9 2019-09-10 00:00:00 Completed [facility] HPV9 2019-09-10 00:00:00 Completed [facility] HPV9 2019-06-17 00:00:00 Completed [facility] HPV9 2019-06-17 00:00:00 Completed [facility] HPV9 2019-06-17 00:00:00 Completed [facility] HPV9 2019-06-17 00:00:00 Completed [facility] HPV9 2019-06-17 00:00:00 Completed [facility] HPV9 2019-06-17 00:00:00 Completed [facility] HPV9 2019-06-17 00:00:00 Completed [facility] Influenza Virus Vaccine Quad IM 3+ YRS 2016-09-06 00:00:00 Completed Influenza Virus Vaccine Quad IM 3+ YRS 2016-09-06 00:00:00 Completed [facility] Influenza Virus Vaccine Quad IM 3+ YRS 2016-09-06 00:00:00 Completed [facility] Influenza Virus Vaccine Quad IM 3+ YRS 2016-09-06 00:00:00 Completed [facility] Influenza Virus Vaccine Quad IM 3+ YRS 2016-09-06 00:00:00 Completed [facility] Influenza Virus Vaccine Quad IM 3+ YRS 2016-09-06 00:00:00 Completed [facility] Influenza Virus Vaccine Quad IM 3+ YRS 2016-09-06 00:00:00 Completed [facility] TDAP 2009-10-22 00:00:00 Completed [facility] TDAP 2009-10-22 00:00:00 Completed [facility] TDAP 2009-10-22 00:00:00 Completed [facility] TDAP 2009-10-22 00:00:00 Completed [facility] TDAP 2009-10-22 00:00:00 Completed [facility] TDAP 2009-10-22 00:00:00 Completed [facility] TDAP 2009-10-22 00:00:00 Completed [facility] HPV9 Unknown Completed [facility] TDAP Unknown Completed [facility] Influenza Virus Vaccine Quad IM 3+ YRS Unknown Completed [facility] HPV9 Unknown Completed [facility] TDAP Unknown Completed [facility] Influenza Virus Vaccine Quad IM 3+ YRS Unknown Completed [facility] HPV9 Unknown Completed [facility] TDAP Unknown Completed [facility] Influenza Virus Vaccine Quad IM 3+ YRS Unknown Completed [facility] HPV9 Unknown Completed [facility] TDAP Unknown Completed [facility] Influenza Virus Vaccine Quad IM 3+ YRS Unknown Completed [facility] HPV9 Unknown Completed [facility] TDAP Unknown Completed [facility] Influenza Virus Vaccine Quad IM 3+ YRS Unknown Completed [facility] HPV9 Unknown Completed [facility] TDAP Unknown Completed [facility] Influenza Virus Vaccine Quad IM 3+ YRS Unknown Completed [facility] HPV9 Unknown Completed [facility] TDAP Unknown Completed [facility] Influenza Virus Vaccine Quad IM 3+ YRS Unknown Completed [facility] HPV9 Unknown Completed [facility] TDAP Unknown Completed [facility] Influenza Virus Vaccine Quad IM 3+ YRS Unknown Completed [facility] HPV9 Unknown Completed [facility] TDAP Unknown Completed [facility] Influenza Virus Vaccine Quad IM 3+ YRS Unknown Completed [facility] HPV9 Unknown Completed [facility] TDAP Unknown Completed [facility] Influenza Virus Vaccine Quad IM 3+ YRS Unknown Completed [facility] HPV9 Unknown Completed [facility] TDAP Unknown Completed [facility] Influenza Virus Vaccine Quad IM 3+ YRS Unknown Completed [facility] HPV9 Unknown Completed [facility] TDAP Unknown Completed [facility] Influenza Virus Vaccine Quad IM 3+ YRS Unknown Completed [facility] HPV9 Unknown Completed [facility] TDAP Unknown Completed [facility] Influenza Virus Vaccine Quad IM 3+ YRS Unknown Completed [facility] HPV9 Unknown Completed [facility] TDAP Unknown Completed [facility] Influenza Virus Vaccine Quad IM 3+ YRS Unknown Completed [facility] HPV9 Unknown Completed [facility] TDAP Unknown Completed [facility] Influenza Virus Vaccine Quad IM 3+ YRS Unknown Completed [facility] HPV9 Unknown Completed [facility] TDAP Unknown Completed [facility] Influenza Virus Vaccine Quad IM 3+ YRS Unknown Completed [facility] HPV9 Unknown Completed [facility] TDAP Unknown Completed [facility] Influenza Virus Vaccine Quad IM 3+ YRS Unknown Completed [facility] HPV9 Unknown Completed [facility] TDAP Unknown Completed [facility] Influenza Virus Vaccine Quad IM 3+ YRS Unknown Completed [facility] HPV9 Unknown Completed [facility] TDAP Unknown Completed [facility] Influenza Virus Vaccine Quad IM 3+ YRS Unknown Completed [facility] Vital Signs Vital Name Observation Time Observation Value Comments S ource Systolic blood pressure 2024-12-18 16:24:00 107 mm[Hg] [facility] Diastolic blood pressure 2024-12-18 16:24:00 71 mm[Hg] [facility] Heart rate 2024-12-18 16:24:00 90 /min [facility] Body temperature 2024-12-18 16:24:00 37.28 Shelly [facility] Respiratory rate 2024-12-18 16:24:00 18 /min [facility] Body height 2024-12-18 16:24:00 157.5 cm [facility] Body weight 2024-12-18 16:24:00 75.388 kg [facility] BMI 2024-12-18 16:24:00 30.40 kg/m2 [facility] Systolic blood pressure 2024-11-18 19:27:00 126 mm[Hg] [facility] Diastolic blood pressure 2024-11-18 19:27:00 78 mm[Hg] [facility] Heart rate 2024-11-18 19:27:00 70 /min [facility] Body temperature 2024-11-18 19:27:00 36.67 Shelly [facility] Respiratory rate 2024-11-18 19:27:00 18 /min [facility] Body height 2024-11-18 19:27:00 154.9 cm [facility] Body weight 2024-11-18 19:27:00 75.206 kg [facility] BMI 2024-11-18 19:27:00 31.33 kg/m2 [facility] Systolic blood pressure 2024-05-13 17:53:00 115 mm[Hg] [facility] Diastolic blood pressure 2024-05-13 17:53:00 76 mm[Hg] [facility] Heart rate 2024-05-13 17:53:00 74 /min [facility] Body temperature 2024-05-13 17:53:00 36.67 Shelly [facility] Respiratory rate 2024-05-13 17:53:00 18 /min [facility] Body height 2024-05-13 17:53:00 154.9 cm [facility] Body weight 2024-05-13 17:53:00 70.398 kg [facility] BMI 2024-05-13 17:53:00 29.32 kg/m2 [facility] BP Systolic 2024-02-15 00:00:00 108 mm[Hg] [facility] BP Diastolic 2024-02-15 00:00:00 71 mm[Hg] [facility] BMI (Body Mass Index) 2024-02-15 00:00:00 30.6 kg/m2 [facility] Height 2024-02-15 00:00:00 60 [in_i] [facility] Body Weight 2024-02-15 00:00:00 156.9 [lb_av] [facility] BP Systolic 2024-02-01 00:00:00 113 mm[Hg] [facility] Body Weight 2024-02-01 00:00:00 157.3 [lb_av] [facility] BMI (Body Mass Index) 2024-02-01 00:00:00 30.7 kg/m2 [facility] BP Diastolic 2024-02-01 00:00:00 81 mm[Hg] [facility] Height 2024-02-01 00:00:00 60 [in_i] [facility] BP Systolic 2024-01-31 00:00:00 127 mm[Hg] [facility] Body Weight 2024-01-31 00:00:00 159.2 [lb_av] [facility] BMI (Body Mass Index) 2024-01-31 00:00:00 31.1 kg/m2 [facility] Height 2024-01-31 00:00:00 60 [in_i] [facility] BP Diastolic 2024-01-31 00:00:00 75 mm[Hg] [facility] Systolic blood pressure 2024-01-11 16:12:00 116 mm[Hg] [facility] Diastolic blood pressure 2024-01-11 16:12:00 79 mm[Hg] [facility] Heart rate 2024-01-11 16:12:00 85 /[facility] Body temperature 2024-01-11 16:12:00 36.61 Shelly [facility] Respiratory rate 2024-01-11 16:12:00 18 /min [facility] Body height 2024-01-11 16:12:00 154.9 cm [facility] Body weight 2024-01-11 16:12:00 71.532 kg [facility] BMI 2024-01-11 16:12:00 29.80 kg/m2 [facility] Oxygen saturation in Arterial blood by Pulse oximetry 2024-01-11 16:12:00 99 /min [facility] Systolic blood pressure 2023-10-24 19:18:00 119 mm[Hg] [facility] Diastolic blood pressure 2023-10-24 19:18:00 75 mm[Hg] [facility] Heart rate 2023-10-24 19:18:00 98 /min [facility] Body temperature 2023-10-24 19:18:00 37.17 Shelly [facility] Respiratory rate 2023-10-24 19:18:00 16 /min [facility] Body weight 2023-10-24 19:18:00 70.308 kg [facility] BMI 2023-10-24 19:18:00 31.31 kg/m2 [facility] Oxygen saturation in Arterial blood by Pulse oximetry 2023-10-24 19:18:00 97 /min [facility] Systolic blood pressure 2023-02-28 13:12:00 123 mm[Hg] [facility] Diastolic blood pressure 2023-02-28 13:12:00 88 mm[Hg] [facility] Heart rate 2023-02-28 13:12:00 91 /min [facility] Body temperature 2023-02-28 13:12:00 36.83 Shelly [facility] Respiratory rate 2023-02-28 13:12:00 18 /min [facility] Body height 2023-02-28 13:12:00 149.9 cm [facility] Body weight 2023-02-28 13:12:00 66.395 kg [facility] BMI 2023-02-28 13:12:00 29.56 kg/m2 [facility] BP Diastolic 2022-11-02 00:00:00 72 mm[Hg] [facility] Height 2022-11-02 00:00:00 64 [in_i] [facility] BMI (Body Mass Index) 2022-11-02 00:00:00 25 kg/m2 [facility] BP Systolic 2022-11-02 00:00:00 108 mm[Hg] [facility] Body Weight 2022-11-02 00:00:00 145.4 [lb_av] [facility] BP Diastolic 2022-10-12 00:00:00 83 mm[Hg] [facility] Height 2022-10-12 00:00:00 64 [in_i] [facility] BMI (Body Mass Index) 2022-10-12 00:00:00 24.6 kg/m2 [facility] BP Systolic 2022-10-12 00:00:00 114 mm[Hg] [facility] Body Weight 2022-10-12 00:00:00 143.3 [lb_av] [facility] BP Diastolic 2022-09-12 00:00:00 79 mm[Hg] [facility] Height 2022-09-12 00:00:00 64 [in_i] [facility] BMI (Body Mass Index) 2022-09-12 00:00:00 25.6 kg/m2 [facility] BP Systolic 2022-09-12 00:00:00 119 mm[Hg] [facility] Body Weight 2022-09-12 00:00:00 148.9 [lb_av] [facility] Systolic blood pressure 2022-07-07 20:00:00 107 mm[Hg] [facility] Diastolic blood pressure 2022-07-07 20:00:00 67 mm[Hg] [facility] Heart rate 2022-07-07 20:00:00 74 /min [facility] Body temperature 2022-07-07 20:00:00 36.44 Shelly [facility] Respiratory rate 2022-07-07 20:00:00 18 /min [facility] Body height 2022-07-07 20:00:00 149.9 cm [facility] Body weight 2022-07-07 20:00:00 64.921 kg [facility] BMI 2022-07-07 20:00:00 28.91 kg/m2 [facility] Procedures Procedure Date / Time Performed Performing Clinician Source GLUCOSE 1 HOUR POST PRANDIAL 2024-12-18 18:18:00 Altagracia Whitley [facility] CBC WITH DIFF 2024-12-18 18:18:00 Altagracia Whitley [facility] HB ABO GROUPING 2024-12-18 18:18:00 Altagracia Whitley [facility] HIV 1/2 AG-AB WITH REFLEX 2024-12-18 18:18:00 Cedric Whitley simon [facility] PROGESTERONE, LEVEL 2024-12-18 18:18:00 Altagracia Whitley [facility] RUBELLA SCREEN IGG 2024-12-18 18:18:00 Altagracia Whitley [facility] VZV ANTIBODY SCREEN 2024-12-18 18:18:00 Altagracia Whitley [facility] HEPATITIS B SURFACE ANTIGEN 2024-12-18 18:18:00 Altagracia Whitley [facility] HCV ANTIBODY 2024-12-18 18:18:00 WhitleyAltagracia [facility] ADC OR ANTHONY ONLY - RPR 2024-12-18 18:18:00 Starr Whitleytristin montes [facility] ANTIPHOSPHOLIPID ANTIBODY EVALUATION-LT BLUE 2024-12-18 18:18:00 Altagracia Whitley [facility] ANTIPHOSPHOLIPID ANTIBODY EVALUATION-SST 2024-12-18 18:18:00 Altagracia Whitley [facility] LUPUS ANTICOAGULANT REFLEXIVE PANEL 2024-12-18 18:18:00 Altagracia Whitley [facility] US OB TRANSVAGINAL 2024-12-18 17:58:35 Altagracia Whitley [facility] POCT TEST 2024-12-18 16:26:00 Altagracia Whitley [facility] POCT URINALYSIS W/O SPECIFIC GRAVITY 2024-12-18 16:26:00 [facility]-AB WITH REFLEX 2024-11-18 20:06:00 Beatriz Mercer [facility] SYPHILIS IGG/IGM 2024-11-18 20:06:00 Shelby Mercer [facility] GALV ONLY - VAGINAL PATHOGENS BY NUCLEIC ACID TESTING 2024-11-18 20:02:00 Shelby Mercer [facility] POCT TEST 2024-11-18 19:52:00 Shelby Mercer [facility] ULTRASOUND, UTERUS REAL TIME WITH IMAGE DOCUMENTAITON, TRANSVAGINAL 2024-01-31 00:00:00 [facility] ULTRASOUND, UTERUS REAL TIME WITH IMAGE DOCUMENTAITON, TRANSVAGINAL 2024-01-23 00:00:00 [facility] POCT URINALYSIS 2024-01-11 00:00:00 Radha James Un [facility] POCT TEST 2024-01-11 00:00:00 Gwendolyn James [facility] POCT TEST 2023-10-24 19:23:00 Gwendolyn James y [facility] GALV ONLY - VAGINAL PATHOGENS BY NUCLEIC ACID TESTING 2023-10-24 19:20:00 Radha James [facility] POCT URINALYSIS 2023-10-24 19:19:00 Radha James Un [facility] ASSIGNMENT OF BENEFITS 2023-10-24 19:09:13 Docfranko r Unassigned, [place] [facility] CBC WITH DIFF 2023-02-28 13:55:00 Ena Small [facility] GLYCOSYLATED HEMOGLOBIN (A1C) 2023-02-28 13:55:00 Ena Small [facility] HCV ANTIBODY 2023-02-28 13:55:00 Ena Small [facility] GC & CHLAMYDIA AMPLIFIED ASSAY 2023-02-28 13:55:00 Ena Small [facility] GALV ONLY - VAGINAL PATHOGENS BY NUCLEIC ACID TESTING 2023-02-28 13:55:00 Ena Small [facility] HIV 1/2 AG-AB WITH REFLEX 2023-02-28 13:55:00 Ena Burgos [facility] SYPHILIS IGG/IGM 2023-02-28 13:55:00 Ena Small [facility] ASSIGNMENT OF BENEFITS 2023-02-28 12:47:02 Eve r Unassigned, [place] [facility], transvaginal 2022-11-16 00:00:00 [facility] REFERRAL- REQUEST/RESPONSE 2022-10-14 06:01:00 Yony bernard Unassigned, [place] [facility], transvaginal 2022-09-12 00:00:00 [facility] POCT TEST 2022-07-07 20:02:00 Meet Hicks [facility] Salpingectomy, Laparoscopic (Surg) [facility] Plan of Care Planned Activity Planned Date Details Comments Source Diagnostic Test Pending 2024-02-15 00:00:00 urinalysis, dipstick [code = urinalysis, dipstick] [facility] Diagnostic Test Pending 2024-02-15 00:00:00 wet [place], vaginal [code = wet mount, vaginal] [facility] Instructions [facility] En[facility]ters Start Date/Time End Date/Time Encounter Type Admission Type Attending Clinicians Care Facility Care Department Encounter ID Source 2022-10-12 10:36:13 Outpatient [facility] [id number] [facility] 2025-01-16 08:45:00 2025-01-16 08:45:00 Outpatient R JAD PADRON [facility] [id number] [facility] 2025-01-05 08:15:00 2025-01-05 08:15:00 Outpatient R ALTAGRACIA WHITLEY VIEN [facility] [id number] [facility] 2025-01-01 08:15:00 2025-01-01 08:15:00 Outpatient R [facility] [id number] [facility] 2024-12-19 00:00:00 2024-12-19 16:45:15 Telephone Altagracia Whitley [facility] 1.2.840.114 350.1.13.10 4.2.7.2.686 [id number] [facility] 2024-12-19 00:00:00 2024-12-19 14:07:19 Telephone Altagracia Whitley [facility] 1.2.840.114 350.1.13.10 4.2.7.2.686 [id number] [facility] 2024-12-18 11:15:00 2024-12-18 12:34:43 Channel Marketing Manager Visit 2, Adc Lab Altagracia Whitley Ihsan 2, Adc Lab [facility] 1.2.840.114 350.1.13.10 4.2.7.2.686 [id number] [facility] 2024-12-18 11:15:00 2024-12-18 11:15:00 Outpatient R STARR WHITLEYALTAGRACIA MURRAY [facility] [id number] [facility] 2024-12-18 10:00:00 2024-12-18 10:54:04 Initial Visit [facility] 1.2.840.114 350.1.13.10 4.2.7.2.686 [id number] [facility] 2024-12-09 07:30:00 2024-12-09 07:30:00 Outpatient R STEPHANIE HICKS [facility] [id number] [facility] 2024-12-05 18:26:00 2024-12-05 18:28:00 Emergency X MARCUS MCKEON JOSEPH [facility] ERT [id number] [facility] 2024-12-05 18:26:00 2024-12-05 18:28:00 Emergency Marcus Mckeon [facility] 1.2.840.114 350.1.13.10 4.2.7.2.686 [id number] [facility] 2024-12-04 12:15:00 2024-12-04 12:15:00 Outpatient R ENA SMALL [facility] [id number] [facility] 2024-12-02 07:30:00 2024-12-02 07:30:00 Outpatient R [facility] [id number] [facility] 2024-12-02 07:00:00 2024-12-02 07:00:00 Outpatient R [facility] [id number] [facility] 2024-11-19 00:00:00 2024-11-19 13:57:55 Case Management Shelby Mercer [facility] LICENSED STAFF MFT [facility] & CHILD [facility] 1.2.840.114 350.1.13.10 4.2.7.2.686 [id number] [facility] 2024-11-18 13:00:00 2024-11-18 14:02:40 Outpatient R SHELBY MERCER [facility] [id number] [facility] 2024-11-18 13:00:00 2024-11-18 14:02:40 Office Visit Shelby Mercer [facility] LICENSED STAFF MFT [facility] & CHILD [facility] 1.2.840.114 350.1.13.10 4.2.7.2.686 [id number] [facility] 2024-09-15 00:00:00 2024-09-15 09:07:09 RefStephanie Grey [facility] LICENSED STAFF MFT [facility] & CHILD [facility] 1.2.840.114 350.1.13.10 4.2.7.2.686 [id number] [facility] 2024-09-15 00:00:00 2024-09-15 09:04:53 RefStephanie Grey [facility] LICENSED ST[facility] CHILD [facility] 1.2.840.114 350.1.13.10 4.2.7.2.686 [id number] [facility] 2024-09-14 00:00:00 2024-09-15 07:57:34 RefStephanie Grey [facility] LICENSED STAFF MFT [facility] & CHILD [facility] 1.2.840.114 350.1.13.10 4.2.7.2.686 [id number] 107 [id number] [facility] 2024-09-02 09:45:00 2024-09-02 09:45:00 Outpatient R STEPHANIE HICKS [facility] [id number] [facility] 2024-05-16 00:00:00 2024-05-16 15:58:25 Telephone PortiaZakiya coatesdeangelo Howell [facility] LICENSED STAFF MFT [facility] & CHILD [facility] 1.2.840.114 350.1.13.10 4.2.7.2.686 [id number] 107 [id number] [facility] 2024-05-15 00:00:00 2024-05-15 07:53:35 Case Management Zakiya Samllnda Dante [facility] LICENSED STAFF MFT [facility] & CHILD [facility] 1..840.114 350.1.13.10 4.2.7.2.686 [id number] [facility] 2024-05-13 12:45:00 2024-05-13 13:28:19 Outpatient R STEPHANIE HICKS [facility] [id number] [facility] 2024-05-13 12:45:00 2024-05-13 13:00:00 Office Visit Stephanie Hicks [facility] LICENSED STAFF MFT [facility] & CHILD [facility] 1..840.114 350.1.13.10 4.2.7.2.686 [id number] [facility] 2024-04-10 15:15:00 2024-04-10 15:15:00 Outpatient R SHELBY MERCER [facility] [id number] [facility] 2024-04-08 21:43:00 2024-04-09 01:18:00 Emergency EM Flor Rouse [facility] [id number] [facility] 2024-02-15 00:00:00 2024-02-15 00:00:00 Elise Hernandez MD: [address] [place] [address], [address], [place] [address] , Ph. [phone] G [facility] [id number] 0426 [facility] 2024-02-01 14:23:00 2024-02-01 14:23:00 Outpatient CORBY HERNANDEZ [facility] [id number] [facility] 2024-02-01 00:00:00 2024-02-01 00:00:00 Elise Hernandez MD: [address] [facility], [address], [place] [address] , Ph. [phone] [facility] [id number] [facility] 2024-01-31 15:00:00 2024-01-31 15:00:00 Outpatient CORBY HERNANDEZ [facility] [id number] [facility] 2024-01-31 00:00:00 2024-01-31 00:00:00 Elise Hernandez MD: [address], [address], [place] [address] , Ph. [phone] [facility] [id number] [facility] 2024-01-29 00:00:00 2024-01-29 00:00:00 Outpatient White_M [facility] [id number] [facility] 2024-01-25 14:19:00 2024-01-25 14:19:00 Outpatient ERICH CHARLES [facility] [id number] [facility] 2024-01-23 09:29:00 2024-01-23 09:29:00 Outpatient ERICH CHARLES [facility] [id number] [facility] 2024-01-23 00:00:00 2024-01-23 00:00:00 BISHOP Gray-BC: [address], [address], [place] [address] , Ph. [phone] White_M [facility] [id number] [facility] 2024-01-22 08:15:00 2024-01-22 08:15:00 Outpatient R ENA SMALL [facility] [id number] [facility] 2024-01-16 00:00:00 2024-01-16 00:00:00 Outpatient White_M [facility] [id number] [facility] 2024-01-11 14:00:00 2024-01-11 14:00:00 Outpatient R UNKNOWN, ATTENDING [facility] [id number] [facility] 2024-01-11 11:00:00 2024-01-11 11:20:14 Outpatient R RADHA JAMES [facility] [id number] [facility] 2024-01-11 11:00:00 2024-01-11 11:20:14 Urgent Care Radha James, Attending [facility] MED[facility] OFFICE BUILD[facility] 1..840.114 350.1.13.10 4.2.7.2.686 [id number] [facility] 2023-10-24 13:00:00 2023-10-24 13:27:23 Outpatient R RADHA JAMES [facility] [id number] [facility] 2023-10-24 13:00:00 2023-10-24 13:27:23 Urgent Care Radha James Unknown, Attending [facility] MEDICAL OFFICE BUILDING 1..840.114 350.1.13.10 4.2.7.2.686 [id number] [facility] 2023-10-24 00:00:00 2023-10-24 00:00:00 Orders Only Doctor Unassigned, [place] [facility] 1..840.114 350.1.13.10 4.2.7.2.686 [id number] [facility] 2023-04-23 13:15:00 2023-04-23 13:15:00 Outpatient R STEPHANIE HICKS [facility] [id number] [facility] 2023-04-02 14:30:00 2023-04-02 14:30:00 Outpatient IVY MENON [facility] [id number] [facility] 2023-03-31 00:00:00 2023-03-31 00:00:00 Patient Secure Msg Ena Small [facility] LICENSED STAFF MFT [facility] & CHILD [facility] 1.2.840.114 350.1.13.10 4.2.7.2.686 [id number] [facility] 2023-03-02 00:00:00 2023-03-02 00:00:00 Case Management Ena Small [facility] LICENSED STAFF MFT [facility] & CHILD [facility] 1.2.840.114 350.1.13.10 4.2.7.2.686 [id number] [facility] 2023-03-02 00:00:00 2023-03-02 00:00:00 Telephone Stephanie Hicks [facility] LICENSED STAFF MFT [facility] & CHILD [facility] 1.2.840.114 350.1.13.10 4.2.7.2.686 [id number] [facility] 2023-03-02 00:00:00 2023-03-02 00:00:00 Patient Secure Ena Small [facility] LICENSED STAFF MFT [facility] & CHILD [facility] 1.2.840.114 350.1.13.10 4.2.7.2.686 [id number] [facility] 2023-02-28 07:45:00 2023-02-28 08:57:53 Outpatient R ENA SMALL [facility] [id number] [facility] 2023-02-28 07:45:00 2023-02-28 08:57:53 Office Visit Ena Small [facility] LICENSED STAFF MFT [facility] 1.2.840.114 350.1.13.10 4.2.7.2.686 [id number] [facility] 2023-02-28 00:00:00 2023-02-28 00:00:00 Orders Only Doctor Unassigned, [place] [facility] 1.2.840.114 350.1.13.10 4.2.7.2.686 [id number] [facility] 2023-01-30 14:45:00 2023-01-30 14:45:00 Outpatient ENA CONTEH [facility] [id number] [facility] 2022-12-19 14:30:00 2022-12-19 14:30:00 Outpatient VELIA BAINS [facility] [id number] [facility] 2022-11-16 00:00:00 2022-11-16 00:00:00 Outpatient Jose Raul [facility] [id number] [facility] 2022-11-16 00:00:00 2022-11-16 00:00:00 TK GrayBC: [address] [address] , Ph. [phone] [facility] [id number] [facility] 2022-11-02 15:26:00 2022-11-02 15:26:00 Outpatient ERICH CHARLES [facility] [id number] [facility] 2022-11-02 00:00:00 2022-11-02 00:00:00 TK GrayBC: [address] [address] , Ph. [phone] [facility] [id number] [facility] 2022-10-14 00:00:00 2022-10-14 00:00:00 Orders Only Doctor Unassigned, [place] [facility] 840.114 350.1.13.10 4.2.7.2.686 [id number] [facility] 2022-10-12 00:00:00 2022-10-12 00:00:00 Outpatient White_M [facility] [id number] [facility] 2022-10-12 00:00:00 2022-10-12 00:00:00 Outpatient White_M [facility] [id number] [facility] 2022-10-12 00:00:00 2022-10-12 00:00:00 BISHOP Gray-BC: [address] [facility] [address], [place] [address] , Ph. [phone] MM[facility] [place] - OBGYN [id number] [facility] 2022-10-06 09:00:00 2022-10-06 09:00:00 Outpatient R STEPHANIE HICKS [facility] [id number] [facility] 2022-09-12 15:04:00 2022-09-12 15:04:00 Out[facility] [id number] [facility] 2022-09-12 00:00:00 2022-09-12 00:00:00 Outpatient White_M [facility] [id number] [facility] 2022-09-12 00:00:00 2022-09-12 00:00:00 BISHOP Gray-BC: [address] [facility] [address], [place] [address] , Ph. [phone] MM[facility] [place] - OBGYN [id number] [facility] 2022-07-07 14:45:00 2022-07-07 15:27:14 Office Visit Stephanie Hicks [facility] LICENSED STAFF MFT [facility] MATERNAL & CHILD [facility] 1..840.114 350.1.13.10 4.2.7.2.686 [id number] [facility] 2022-07-07 14:45:00 2022-07-07 15:27:14 Outpatient R STEPHANIE HICKS [facility] [id number] [facility] 2022-07-07 14:45:00 2022-07-07 14:45:00 Outpatient R STEPHANIE HICKS [facility] [id number] [facility] 2022-07-07 08:15:00 2022-07-07 08:15:00 Outpatient R AMAYA JACYROSA [facility] [id number] [facility] 2022-06-27 00:00:00 2022-06-27 00:00:00 Patient Secure Msg Stephanie Hicks [facility] LICENSED STAFF MFT [facility] MATERNAL & CHILD [facility] 1.2.840.114 350.1.13.10 4.2.7.2.686 [id number] 107 [id number] [facility] 2022-06-21 10:30:00 2022-06-21 11:49:35 Office Visit Stephanie Hicks [facility] LICENSED STAFF MFT [facility] & CHILD [facility] 1.2.840.114 350.1.13.10 4.2.7.2.686 [id number] [facility] 2022-06-21 10:30:00 2022-06-21 11:49:35 Outpatient R STEPHANIE HICKS [facility] [id number] [facility] 2022-06-21 10:30:00 2022-06-21 10:30:00 Outpatient R STEPHANIE HICKS [facility] [id number] [facility] 2022-06-19 10:15:00 2022-06-19 10:15:00 Outpatient R STEPHANIE HICKS [facility] [id number] [facility] 2022-06-16 14:00:00 2022-06-16 14:00:00 Outpatient R STEPHANIE HICKS [facility] [id number] [facility] 2022-06-16 00:00:00 2022-06-16 00:00:00 Telephone Stephanie Hicks Beatriz [facility] LICENSED STAFF MFT [facility] CHILD [facility] 1.2.840.114 350.1.13.10 4.2.7.2.686 [id number] [facility] 2022-04-25 08:15:00 2022-04-25 08:15:00 Outpatient R JERRYYASMEENJESS STEPHANIE [facility] [id number] [facility] 2022-04-18 14:15:00 2022-04-18 14:15:00 Outpatient Kinsey DUBOISJESSSTEPHANIE [facility] [id number] [facility] 2022-04-14 00:00:00 2022-04-14 00:00:00 Telephone Jerryyasmeenjess Stephanie Beatriz [facility] LICENSED STAFF MFT [facility] CHILD [facility] ..840.114 350.1.13.10 4.2.7.2.686 [id number] [facility] 2022-04-14 00:00:00 2022-04-14 00:00:00 Patient Secure MsStephanie Ac [facility] LICENSED STAFF MFT [facility] CHILD [facility] 1..840.114 350.1.13.10 4.2.7.2.686 [id number] [facility] 2022-04-04 00:00:00 2022-04-04 00:00:00 Patient Secure Msg Stephanie Hicks [facility] LICENSED STAFF MFT [facility] CHILD [facility] 1.2.840.114 350.1.13.10 4.2.7.2.686 [id number] [facility] 2022-04-03 00:00:00 2022-04-03 00:00:00 Patient Secure Msg Stephanie Hicks [facility] LICENSED STAFF MFT [facility] CHILD [facility] 1.2.840.114 350.1.13.10 4.2.7.2.686 [id number] 107 [id number] [facility] 2022-04-03 00:00:00 2022-04-03 00:00:00 Telephone Stephanie Hicks [facility] LICENSED STAFF MFT [facility] 1.2.840.114 350.1.13.10 4.2.7.2.686 [id number] [facility] 2022-03-31 16:00:00 2022-03-31 16:29:52 Outpatient R STEPHANIE HICKS [facility] [id number] [facility] 2022-03-31 16:00:00 2022-03-31 16:29:52 Office Visit Stephanie Hicks [facility] LICENSED STAFF MFT [facility] 1.2840.114 350.1.13.10 4.2.7.2.686 [id number] [facility] 2022-03-31 00:00:00 2022-03-31 00:00:00 Orders Only Doctor Unassigned, [place] [facility] 1.2840.114 350.1.13.10 4.2.7.2.686 [id number] [facility] 2022-01-30 13:00:00 2022-01-30 13:00:00 Outpatient R KARLA BURRELL [facility] [id number] [facility] 2021-11-12 00:00:00 2021-11-12 00:00:00 Patient Secure Msg Doctor Unassigned, [place] [facility] 1.20.114 350.1.13.10 4.2.7.2.686 [id number] [facility] 2021-11-11 14:00:00 2021-11-11 14:00:00 Outpatient R STEPHANIE HICKS [facility] [id number] [facility] 2021-11-11 14:00:00 2021-11-11 14:00:00 Outpatient R STEPHANIE HICKS [facility] [id number] [facility] 2021-10-28 13:45:00 2021-10-28 14:59:43 Outpatient R STEPHANIE HICKS [facility] [id number] [facility] 2021-10-28 13:45:00 2021-10-28 14:59:43 Office Visit Stephanie Hicks [facility] LICENSED STAFF MFT [facility] 1..840.114 350.1.13.10 4.2.7.2.686 [id number] [facility] 2021-05-25 00:00:00 2021-05-25 00:00:00 Telephone KatjessStephanie [facility] LICENSED STAFF MFT [facility] 1..840.114 350.1.13.10 4.2.7.2.686 [id number] [facility] 2021-05-24 15:15:00 2021-05-24 15:15:00 Outpatient R STEPHANIE HICKS [facility] [id number] [facility] 2021-05-11 16:00:00 2021-05-11 16:00:00 Outpatient R STEPHANIE HICKS [facility] [id number] [facility] 2021-04-26 00:00:00 2021-04-26 00:00:00 Telephone Stephanie Hicks [facility] LICENSED STAFF MFT [facility] 1..840.114 350.1.13.10 4.2.7.2.686 [id number] 107 [id number] [facility] 2021-04-14 13:45:00 2021-04-14 13:45:00 Outpatient P [facility] [id number] [facility] 2021-04-05 15:45:00 2021-04-05 15:45:00 Outpatient R STEPHANIE HICKS [facility] [id number] [facility] 2021-04-04 00:00:00 2021-04-04 00:00:00 Patient Secure Msg Doctor Unassigned, [place] [facility] LICENSED STAFF MFT [facility] 1.2.840.114 350.1.13.10 4.2.7.2.686 [id number] 107 [id number] [facility] 2021-03-30 00:00:00 2021-03-30 00:00:00 Patient Secure Msg Doctor Unassigned, [place] [facility] 1.2.840.114 350.1.13.10 4.2.7.2.686 [id number] [facility] 2021-03-25 00:00:00 2021-03-25 00:00:00 Telephone Stephanie Hicks [facility] LICENSED STAFF MFT [facility] CHILD [facility] 1.2.840.114 350.1.13.10 4.2.7.2.686 [id number] 107 [id number] 2021-03-25 00:00:00 2021-03-25 00:00:00 Telephone Stephanie Hicks [facility] LICENSED STAFF MFT [facility] CHILD [facility] 1.2.840.114 350.1.13.10 4.2.7.2.686 [id number] 107 [id number] [facility] 2021-03-24 10:30:23 2021-03-24 10:47:41 Channel Marketing Manager Visit Lab, Kaushik-Rmchp Ida Varela [facility] LICENSED STAFF MFT [facility] CHILD [facility] 1.2.840.114 350.1.13.10 4.2.7.2.686 [id number] 107 [id number] [facility] 2021-03-24 10:30:00 2021-03-24 10:30:00 Outpatient R [facility] [id number] [facility] 2021-03-24 00:00:00 2021-03-24 00:00:00 Patient Secure Msg Doctor Unassigned, [place] [facility] 1.2.840.114 350.1.13.10 4.2.7.2.686 [id number] [facility] 2021-03-24 00:00:00 2021-03-24 00:00:00 Telephone Stephanie Hicks [facility] LICENSED STAFF MFT [facility] & CHILD [facility] 1.2.840.114 350.1.13.10 4.2.7.2.686 [id number] 107 [id number] [facility] 2021-03-23 00:00:00 2021-03-23 00:00:00 Patient Secure Msg Richard Amaya [facility] LICENSED STAFF MFT [facility] & CHILD [facility] 1.2840.114 350.1.13.10 4.2.7.2.686 [id number] 107 [id number] [facility] 2021-03-22 15:10:35 2021-03-22 15:25:35 Initial Visit Stephanie Hicks [facility] 1.2840.114 350.1.13.10 4.2.7.2.686 [id number] 107 [id number] [facility] 2021-03-22 15:00:00 2021-03-22 15:00:00 Outpatient R STEPHANIE HICKS [facility] [id number] [facility] 2021-03-22 00:00:00 2021-03-22 00:00:00 Orders Only Doctor Unassigned, [place] [facility] 1.2840.114 350.1.13.10 4.2.7.2.686 [id number] [facility] 2021-02-23 13:08:12 2021-02-23 13:35:01 Office Visit Richard Amaya [facility] LICENSED STAFF MFT [facility] & CHILD [facility] 1.2.840.114 350.1.13.10 4.2.7.2.686 [id number] 107 [id number] [facility] 2021-02-23 13:00:00 2021-02-23 13:00:00 Outpatient R RICHARD AMAYA [facility] [id number] [facility] 2021-02-16 09:30:00 2021-02-16 09:30:00 Outpatient R [facility] [id number] [facility] 2021-02-16 09:30:00 2021-02-16 09:30:00 Outpatient R JACY AMAYAROSA [facility] [id number] [facility] 2021-02-14 00:00:00 2021-02-14 00:00:00 Patient Secure Msg Doctor Unassigned, [place] [facility] 1.2.840.114 350.1.13.10 4.2.7.2.686 [id number] 107 [id number] [facility] 2021-02-14 00:00:00 2021-02-14 00:00:00 Patient Secure Msg Doctor Unassigned, [place] [facility] 1.2.840.114 350.1.13.10 4.2.7.2.686 [id number] [facility] 2021-02-02 10:05:24 2021-02-02 11:11:24 Routine Visit Richard Amaya [facility] LICENSED STAFF MFT [facility] & CHILD [facility] 1.2.840.114 350.1.13.10 4.2.7.2.686 [id number] 107 [id number] [facility] 2021-02-02 10:00:00 2021-02-02 10:00:00 Outpatient R JACY AMAYAROSA [facility] [id number] [facility] 2021-02-02 00:00:00 2021-02-02 00:00:00 Orders Only Doctor Unassigned, [place] [facility] 1.2840.114 350.1.13.10 4.2.7.2.686 [id number] [facility] 2021-02-01 14:45:00 2021-02-01 14:45:00 Outpatient Kinsey AMAYA RICHARD [facility] [id number] [facility] 2021-01-31 13:45:00 2021-01-31 13:45:00 [facility] [id number] [facility] 2021-01-11 00:00:00 2021-01-11 00:00:00 Patient Outreach Pardeep Amaro [facility] 1.840.114 350.1.13.10 4.2.7.2.686 [id number] [facility] 2021-01-10 14:26:11 2021-01-10 15:14:43 Initial Visit Cortez Richard Euceda [facility] LICENSED STAFF MFT [facility]ERNAL & [facility] 1.840.114 350.1.13.10 4.2.7.2.686 [id number] 107 [id number] [facility] 2021-01-10 14:00:00 2021-01-10 14:00:00 Outpatient Kinsey AMAYA RICHARD [facility] [id number] [facility] 2021-01-10 00:00:00 2021-01-10 00:00:00 Orders Only Doctor Unassigned, [place] [facility] 1.840.114 350.1.13.10 4.2.7.2.686 [id number] [facility] 2021-01-03 14:00:00 2021-01-03 14:00:00 Outpatient Kinsey [facility] [id number] [facility] 2021-01-03 12:45:00 2021-01-03 12:45:00 Outpatient R RICHARD AMAYA [facility] [id number] [facility] 2020-12-28 13:15:00 2020-12-28 13:15:00 Outpatient R RICHARD AMAYA [facility] [id number] [facility] 2020-11-29 00:00:00 2020-11-29 00:00:00 Telephone Richard Amaya [facility] LICENSED STAFF MFT [facility] & CHILD [facility] 1..114 350.1.13.10 4.2.7.2.686 [id number] 107 [id number] [facility] 2020-11-24 14:45:48 2020-11-24 15:26:28 Office Visit Richard Amaya [facility] LICENSED STAFF MFT [facility] & CHILD [facility] 1.84.114 350.1.13.10 4.2.7.2.686 [id number] 107 [id number] [facility] 2020-11-24 14:45:00 2020-11-24 14:45:00 Outpatient RICHARD GRAVES [facility] [id number] [facility] 2020-11-24 00:00:00 2020-11-24 00:00:00 Orders Only Doctor Unassigned, [place] [facility] 1.84.114 350.1.13.10 4.2.7.2.686 [id number] [facility] 2020-09-14 13:30:00 2020-09-14 13:30:00 Outpatient R RICHARD AMAYA [facility] [id number] [facility] 2020-09-13 00:00:00 2020-09-13 00:00:00 Telephone Richard Amaya [facility] LICENSED STAFF MFT [facility] CHILD [facility] 1..114 350.1.13.10 4.2.7.2.686 [id number] [facility] 2020-09-09 15:00:00 2020-09-09 15:00:00 Outpatient R RICHARD AMAYA [facility] [id number] [facility] 2020-09-01 12:45:00 2020-09-01 12:45:00 Outpatient R RICHARD AMAYA [facility] [id number] [facility] 2020-09-01 12:45:00 2020-09-01 12:45:00 Outpatient R RICHARD AMAYA [facility] [id number] [facility] 2020-07-29 09:45:00 2020-07-29 09:45:00 Outpatient R STEPHANIE HICKS [facility] [id number] [facility] 2020-07-29 09:45:00 2020-07-29 09:45:00 Outpatient R KAY STEPHANIE [facility] [id number] [facility] 2020-06-08 10:45:00 2020-06-08 10:45:00 Outpatient R KAY STEPHANIE [facility] [id number] [facility] 2020-06-08 10:45:00 2020-06-08 10:45:00 Outpatient R KAY STEPHANIE [facility] [id number] [facility] 2020-04-13 11:00:57 2020-04-13 11:44:15 Office Visit Richard Amaya [facility] LICENSED STAFF MFT [facility]ERNAL & [facility] 1.2.840.114 350.1.13.10 4.2.7.2.686 [id number] 107 [id number] [facility] 2020-04-13 11:00:00 2020-04-13 11:00:00 Outpatient R RICHARD AMAYA [facility] [id number] [facility] 2020-04-13 09:45:00 2020-04-13 09:45:00 Outpatient R IDA VARELA [facility] [id number] [facility] 2020-03-09 10:30:00 2020-03-09 10:30:00 Outpatient R RICHARD AMAYA [facility] [id number] [facility] 2020-03-04 00:00:00 2020-03-04 00:00:00 Telephone Ida Varela [facility] LICENSED STAFF MFT [facility] CHILD [facility] 1..840.114 350.1.13.10 4.2.7.2.686 [id number] 107 [id number] [facility] 2020-01-12 15:30:00 2020-01-12 15:30:00 Outpatient R IDA VARELA [facility] [id number] [facility] 2020-01-07 00:00:00 2020-01-07 00:00:00 Patient Secure Doctor Unassigned, [place] [facility] LICENSED STAFF MFT [facility] CHILD [facility] 1.840.114 350.1.13.10 4.2.7.2.686 [id number] 107 [id number] [facility] 2020-01-05 13:19:07 2020-01-05 14:07:46 Office Visit Stephanie Hicks [facility] 1.840.114 350.1.13.10 4.2.7.2.686 [id number] 107 [id number] [facility] 2020-01-05 13:15:00 2020-01-05 13:15:00 Outpatient R STEPHANIE HICKS [facility] [id number] [facility] 2019-12-12 08:00:00 2019-12-12 08:00:00 Outpatient R RICHARD AMAYA [facility] [id number] [facility] 2019-12-11 00:00:00 2019-12-11 00:00:00 Patient Secure MsIda Tenorio [facility] 1..840.114 350.1.13.10 4.2.7.2.686 [id number] 107 [id number] [facility] 2019-12-08 11:15:24 2019-12-08 11:43:05 Office Visit Richard Amaya [facility] LICENSED STAFF MFT [facility] & CHILD [facility] 1.2.840.114 350.1.13.10 4.2.7.2.686 [id number] 107 [id number] [facility] 2019-12-08 00:00:00 2019-12-08 00:00:00 Orders Only Doctor Unassigned, [place] [facility] 1.2.840.114 350.1.13.10 4.2.7.2.686 [id number] [facility] 2019-11-28 00:00:00 2019-11-28 00:00:00 Telephone Ida Varela [facility] LICENSED STAFF MFT [facility] & CHILD [facility] 1.2.840.114 350.1.13.10 4.2.7.2.686 [id number] 107 [id number] [facility] 2019-11-25 08:40:20 2019-11-25 09:30:23 Office Visit Ida Varela [facility] LICENSED STAFF MFT [facility] & CHILD [facility] 1.2.840.114 350.1.13.10 4.2.7.2.686 [id number] 107 [id number] [facility] 2019-11-25 00:00:00 2019-11-25 00:00:00 Telephone Ida Varela [facility] LICENSED STAFF MFT [facility] & CHILD [facility] 1.2.840.114 350.1.13.10 4.2.7.2.686 [id number] 107 [id number] [facility] 2019-11-05 00:00:00 2019-11-05 00:00:00 Telephone Stephanie Hicks [facility] LICENSED STAFF MFT [facility] & CHILD [facility] 1.2.840.114 350.1.13.10 4.2.7.2.686 [id number] 107 [id number] [facility] 2019-06-17 12:53:35 2019-06-17 13:48:17 Office Visit AlejandroIda Simon [facility] LICENSED STAFF MFT [facility]ERNAL & [facility] 1.2.840.114 350.1.13.10 4.2.7.2.686 [id number] 107 [id number] [facility] 2019-06-17 00:00:00 2019-06-17 00:00:00 Orders Only Doctor Unassigned, [place] [facility] 1..840.114 350.1.13.10 4.2.7.2.686 [id number] [facility] Results Test Description Test Time Test Comments Results Result Co [facility]ments [facility] w/o Specific [id number] 16:26:00* Test Item Value Reference Range Interpretation [...] = 3257) na Negative - Negati ve [facility] [id number] 19:52:00* Test Item Value Reference Range Interpretation Comme nts POCT PREG (test code = 1605) Negative On board controls acceptable with C Line (test code = 3574) Yes POCT PREG LOT # (test code = 3575) POCT PREG TEST DATE ( test code = 3576) [facility] [id number] 23:45:00* Test Item Value Reference Range Interpretation [...] milliInternationalunits/mL SHOULD BE CONSIDERED NEGATIVE - DUP AB/PEL/SC/[id number] 23:00:00 [facility] : 1995 Sex: F Patient Name: DEREK GARCIA Unit No: [id number] EXAMS: CPT CODE: [id number] DUP AB/PEL/SC/LTD 66208 EXAM: - US PREG EVAL 1ST TRIMTR, [...] Orig Print D/T: S: 04/08/2024 (2304) [facility] NAME: DEREK GARCIA Radiology Department PHYS: IMELDAEmerson Flor Rouse MD [address] : 1995 AGE: 28 SEX: F [place] [address] LOC: .ERS PHONE #: [phone] DATE: 04/08/2024 STATUS: REG ER FAX #: [phone] RAD NO: Page 1 Signed Report Patient Name: JULIODEREK Unit No: [id number] EXAMS: CPT CODE: [id number] DUP AB/PEL/SC/LTD 15258 (Continued) [facility] NAME: DEREK GARCIA Radiology Department PHYS: ALISHAEUNICETristinEmerson Flor Rouse MD [address] : 1995 AGE: 28 SEX: F [place] [address] LOC: F.ERS PHONE #: [phone] EXAM DATE: 04/08/2024 STATUS: REG ER FAX #: [phone] RAD NO: Page 2 Signed Report- US PREG UT [id number] 23:00:00[facility] : 1995 Sex: FPatient Name: DEREK GARCIA Unit No: [id number] EXAMS: CPT CODE: [id number] US PREG UT TRANSVAGINAL 07574 EXAM: - US PREG EVAL 1ST TRIMTR, [...] Flor Rouse MD Technologist: Luma Watkins RDMS Probe:[id number] Trnscrbd D/ (2300) [place]3 Orig Print D/T: S: 04/08/2024 (2304) [facility] NAME: DEREK GARCIA Radiology Department PHYS: MINISTERIOTristinEmerson Flor Garces MD [address] : 1995 AGE: 28 SEX: F [place], [place] [address] LOC: F.ERS PHONE #: [phone] EXAM DATE: 04/08/2024 STATUS: REG ER FAX #: [phone] RAD NO: Page 1 Signed Report Patient Name: DEREK GARCIA Unit No: [id number] EXAMS: CPT CODE: [id number] US PREG UT TRANSVAGINAL 38305 (Continued) [facility] NAME: DEREK GARCIA Radiology Department PHYS: Flor Rouse MD [address] : 1995 AGE: 28 SEX: F [place], [place] [address] LOC: F.ERS PHONE #: [phone] EXAM DATE: 04/08/2024 STATUS: REG ER FAX #: [phone] RAD NO: Page 2 Signed Report- US PREG EVAL 1ST TRIMTR 2024-04-08 23:00:00 [facility] : 1995 Sex: FPatient Name: DEREK GARCIA Unit No: [id number] EXAMS: CPT CODE: [id number] US PREG EVAL 1ST TRIMTR 31371 EXAM: - US PREG EVAL 1ST TRIMTR, [...] Orig Print D/T: S: 04/08/2024 (2304) [facility] NAME: DEREK GARCIA Radiology Department PHYS: MOUNA Flor Rouse MD [address] : 1995 AGE: 28 SEX: F [place], [place] [address] LOC: OfeliaERS PHONE #: [phone] EXAM DATE: 04/08/2024 STATUS: REG ER FAX #: [phone] RAD NO: Page 1 Signed Report Patient Name: DEREK GARCIA Unit No: [id number] EXAMS: CPT CODE: [id number] US PREG EVAL 1ST TRIMTR 16662 ( Continued) [facility] NAME: DEREK GARCIA Radiology Department PHYS: 01- Flor Rouse MD [address] : 1995 AGE: 28 SEX: F [place] [address] LOC: JA PHONE #: [phone] EXAM DATE: 04/08/2024 STATUS: REG ER FAX #: [phone] RAD NO: Page 2 Signed ReportMicroscopic observation [Identifier] in Vaginal fluid by Wet jtbtbpwhmjl6347-82-32 16:35:18* Test Item Value Reference Range Interpretation Comme nts Clue Cells (test code = Clue Cells) negative WBCs (test code = WBCs) positive Trichomonads (test code = Trichomonads) negative Epithelial cells (test code = Epithelial cells) normal RBCs (test code = RBCs) negative [facility] macro (dipstick) panel - Snrsu5375-03-56 14:37:04* Test Item Value Reference Range Interpretation Comme nts Leukocytes (test code = Leukocytes) Negative Nitrite (test code = Nitrite) negative Urobilinogen (test code = Urobilinogen) .2 Protein (test code = Protein) Negative pH (test code = pH) 6.0 Blood (test code = Blood) Non-Hemolyzed: Trace Specific [place] (test code = Specific [place]) 1.025 Ketone (test code = Ketone) Negative Bilirubin (test code = Bilirubin) Negative Glucose (test code = Glucose) Negative Appearance (test code = Appearance) Clear Color (test code = Color) Yellow [facility] CenterCBC W Auto Differential panel - Tuuvz6422-52-15 14:43:00 * Test Item Value Reference Range [...] NRBC# (test code = NRBC#) 0 K/uL [facility] GroupUrinalysis macro (dipstick) panel - Nxbzp3785-42-14 14:01:32* Test Item Value Reference Range Interpretation Comme nts Leukocytes (test code = Leukocytes) Small Nitrite (test code = Nitrite) negative Urobilinogen (test code = Urobilinogen) .2 Protein (test code = Protein) 30 pH (test code = pH) 5.0 Blood (test code = Blood) Moderate Specific [place] (test code = Specific [place]) 1.025 Ketone (test code = Ketone) Large Bilirubin (test code = Bilirubin) Negative Glucose (test code = Glucose) Negative Appearance (test code = Appearance) Clear Color (test code = Color) Yellow [facility] ypoiqzditxrv1333-19-94 17:06:00* Test Item Value Reference Range Interpretation Comme nts HCG quantitative (test code = HCG quantitative) 8750.0 mIU/mL 0-5 H [facility] CenterUrinalysis macro (dipstick) panel - Yeqwq7314-87-18 14:17:46* Test Item Value Reference Range Interpretation Comme nts Leukocytes (test code = Leukocytes) Small Nitrite (test code = Nitrite) negative Urobilinogen (test code = Urobilinogen) .2 Protein (test code = Protein) Negative pH (test code = pH) 7.0 Blood (test code = Blood) Non-Hemolyzed: Trace Specific [place] (test code = Specific [place]) 1.015 Ketone (test code = Ketone) Negative Bilirubin (test code = Bilirubin) Negative Glucose (test code = Glucose) Negative Appearance (test code = Appearance) Clear Color (test code = Color) Yellow [facility] ioxqceulhcev5672-53-26 18:09:00* Test Item Value Reference Range Interpretation Comme nts HCG quantitative (test code = HCG quantitative) 1146.0 mIU/mL 0-5 H [facility] eheojsmhcsmu0169-73-88 11:06:00* Test Item Value Reference Range Interpretation Comme nts HCG quantitative (test code = HCG quantitative) 466.6 mIU/mL 0-5 H [facility] CenterChoriogonadotropin.beta subunit [Units/volume] in Serum or Unqoxt8289-18-05 11:06:00* Test Item Value Reference Range Interpretation Comme nts HCG quantitative (test code = HCG quantitative) 466.6 mIU/mL 0-5 H [facility] Centerpregnancy test, lgeai4020-81-51 09:36:27* Test Item Value Reference Range Interpretation Comme nts Test (test code = Test) positive [facility] CenterUrinalysis macro (dipstick) panel - Ztnaf4173-80-05 08:33:52* Test Item Value Reference Range Interpretation Comme nts Leukocytes (test code = Leukocytes) Negative Nitrite (test code = Nitrite) negative Urobilinogen (test code = Urobilinogen) .2 Protein (test code = Protein) Negative pH (test code = pH) 6.0 Blood (test code = Blood) Non-Hemolyzed: Trace Specific [place] (test code = Specific [place]) 1.025 Ketone (test code = Ketone) Negative Bilirubin (test code = Bilirubin) Negative Glucose (test code = Glucose) Negative Appearance (test code = Appearance) Clear Color (test code = Color) Yellow [facility] Fayh2716-02-89 16:22:00* Test Item Value Reference Range Interpretation Comme nts POCT PREG (test code = 1605) Negative On board controls acceptable with C Line (test code = 3574) Yes POCT PREG LOT # (test code = 3575) POCT PREG TEST DATE ( test code = 3576) Lab Interpretation (test cod e = 85458-7) Normal [facility] Urinalysis W Specific [id number] 16:19:00* Test Item Value Reference Range Interpretation [...] Cloudy Lab Interpretation (test cod e = 32210-1) Abnormal [facility] [id number] 19:24:00* Test Item Value Reference Range Interpretation Comme nts POCT PREG (test code = 1605) Negative On board controls acceptable with C Line (test code = 3574) Yes POCT PREG LOT # (test code = 3575) POCT PREG TEST DATE (test code = 3575) CECIL (test code = CECIL) accurate developme nt and interpretation of all internal controls Lab Interpretation (test code = 24110-7) Normal [facility] Kixm6120-35-40 19:24:00* Test Item Value Reference Range Interpretation Comme nts POCT PREG (test code = 1605) Negative On board controls acceptable with C Line (test code = 3574) Yes POCT PREG LOT # (test code = 3575) POCT PREG TEST DATE (test code = 3575) CECIL (test code = CECIL) accurate developme nt and interpretation of all internal controls Lab Interpretation (test code = 24547-2) Normal [facility] Urinalysis W Specific [id number] 19:20:00* Test Item Value Reference Range Interpretation [...] internal controls Lab Interpretation (test code = 46255-4) Normal [facility] Urinalysis W Specific [id number] 19:20:00* Test Item Value Reference Range Interpretation [...] internal controls Lab Interpretation (test code = 38131-3) Normal [facility] ONLY - SYPHILIS [id number] 15:05:59* Test Item Value Reference Range Interpretation Comme nts Syphilis IgG/IgM (test code = 24845-8) Non-reactive Non-reactive CECIL (test code = CECIL) Non-reactive - No serologic evidence of T. pallidum infection. Cannot exclude incubating or early syphilis. Submit a second specimen in 2-4 weeks if syphilis is clinically suspected. Equivocal - Further testing to follow. Reactive - Further testing to follow. Lab Interpretation (test code = 54724-7) Normal [facility] ONLY - SYPHILIS [id number] 15:05:59* Test Item Value Reference Range Interpretation Comme nts Syphilis IgG/IgM (test code = 01055-2) Non-reactive Non-reactive CECIL (test code = CECIL) Non-reactive - No serologic evidence of T. pallidum infection. Cannot exclude incubating or early syphilis. Submit a second specimen in 2-4 weeks if syphilis is clinically suspected. Equivocal - Further testing to follow. Reactive - Further testing to follow. Lab Interpretation (test code = 74385-0) Normal [facility] ONLY - SYPHILIS IGG/[id number] 15:05:59* Test Item Value Reference Range Interpretation Comme nts Syphilis IgG/IgM (test code = 46849-5) Non-reactive Non-reactive CECIL (test code = CECIL) Non-reactive - No serologic evidence of T. pallidum infection. Cannot exclude incubating or early syphilis. Submit a second specimen in 2-4 weeks if syphilis is clinically suspected. Equivocal - Further testing to follow. Reactive - Further testing to follow. Lab Interpretation (test code = 46949-3) Normal [facility] 1/2 AG-AB WITH [id number] 06:58:27* Test Item Value Reference Range Interpretation Comme nts HIV Semi-quantitative (test code = 41449-8) 0.12 Negative CECIL (test code = CECIL) Non-reactive for HIV-1 antigen and HIV-1/HIV-2 antibodies. ?No laboratory evidence of HIV infection. ?Repeat in 2-4 weeks if acute HIV infection is suspected. [facility] 1/2 AG-AB WITH [id number] 06:58:27* Test Item Value Reference Range Interpretation Comme nts HIV Semi-quantitative (test code = 82977-6) 0.12 Negative CECIL (test code = CECIL) Non-reactive for HIV-1 antigen and HIV-1/HIV-2 antibodies. ?No laboratory evidence of HIV infection. ?Repeat in 2-4 weeks if acute HIV infection is suspected. [facility] 1/2 AG-AB WITH [id number] 06:58:27* Test Item Value Reference Range Interpretation Comme nts HIV Semi-quantitative (test code = 70177-5) 0.12 Negative CECIL (test code = CECIL) Non-reactive for HIV-1 antigen and HIV-1/HIV-2 antibodies. ?No laboratory evidence of HIV infection. ?Repeat in 2-4 weeks if acute HIV infection is suspected. [facility] [id number] 05:29:42* Test Item Value Reference Range Interpretation Comme nts HCV Ab (test code = 13040-0) Negative HCV Semi-Quantitative (test code = 40758-8) 0.01 [facility] [id number] 05:29:42* Test Item Value Reference Range Interpretation Comme nts HCV Ab (test code = 42668-4) Negative HCV Semi-Quantitative (test code = 34633-5) 0.01 [facility] [id number] 05:29:42* Test Item Value Reference Range Interpretation Comme nts HCV Ab (test code = 84430-7) Negative HCV Semi-Quantitative (test code = 03680-5) 0.01 [facility]-01 05:25:25* Test Item Value Reference Range Interpretation Comme nts HGB A1C (test code = 4548-4) 5.3 % 4.0-5.7 CECIL (test code = CECIL) Reference RangesNormal: <5.7%Prediabetes: 5.7 - 6.4%Diabetes: > 6.5% Lab Interpretation (test code = 33558-5) Normal [facility]2023-03-01 05:25:25* Test Item Value Reference Range Interpretation Comme nts HGB A1C (test code = 4548-4) 5.3 % 4.0-5.7 CECIL (test code = CECIL) Reference RangesNormal: <5.7%Prediabetes: 5.7 - 6.4%Diabetes: > 6.5% Lab Interpretation (test code = 98943-5) Normal [facility]2023-03-01 05:25:25* Test Item Value Reference Range Interpretation Comme nts HGB A1C (test code = 4548-4) 5.3 % 4.0-5.7 CECIL (test code = CECIL) Reference RangesNormal: <5.7%Prediabetes: 5.7 - 6.4%Diabetes: > 6.5% Lab Interpretation (test code = 61254-8) [facility] [id number] 05:04:15* Test Item Value Reference Range Interpretation [...] 32.5 g/dL 31.6-35.1 RDW-SD (test code = 15871-8) 43.6 fL 39.0-49.9 RDW-CV (test code = 788-0) 12.8 % 12.0-15.5 PLT (test code = 777-3) 326 See_Comment [Automated messa ge] The system which generated this result transmitted reference range: 166 - 358 10*3/?L. The reference range was not used to interpret this result as normal/abnormal. MPV (test code = 52045-4) 10.1 fL 9.5-12.9 NRBC/100 WBC (test code = 5628931251) 0.0 See_Comment [Automated [employer] ssage] The system which generated this result transmitted reference range: 0.0 - 10.0 /100 WBCs. The reference range was not used to interpret this result as normal/abnormal. NRBC x10^3 (test code = 3022303132) See_Comment [Automated messa ge] The system which generated this result transmitted reference range: 10*3/?L. The reference range was not used to interpret this result as normal/abnormal. GRAN MAT (NEUT) % (test code = 770-8) 59.5 % IMM GRAN % (test code = 4099294975) 0.10 % LYMPH % (test code = 736-9) 31.2 % MONO % (test code = 5905-5) 5.9 % EOS % (test code = 713-8) 2.8 % BASO % (test code = 706-2) 0.5 % GRAN MAT x10^3(ANC) (test code = 7797387936) 5.43 10*3/uL 1.88-7.09 IMM GRAN x10^3 (test code = 9895922243) 0.00-0.06 LYMPH x10^3 (test code = 731-0) 2.85 10*3/uL 1.32-3.29 MONO x10^3 (test code = 742-7) 0.54 10*3/uL 0.33-0.92 EOS x10^3 (test code = 711-2) 0.26 10*3/uL 0.03-0.39 BASO x10^3 (test code = 704-7) 0.05 10*3/uL 0.01-0.07 Lab Interpretation (test code = 79794-1) Abnormal [facility] WITH [id number] 05:04:15* Test Item Value Reference Range Interpretation [...] 32.5 g/dL 31.6-35.1 RDW-SD (test code = 36821-4) 43.6 fL 39.0-49.9 RDW-CV (test code = 788-0) 12.8 % 12.0-15.5 PLT (test code = 777-3) 326 See_Comment [Automated messa ge] The system which generated this result transmitted reference range: 166 - 358 10*3/?L. The reference range was not used to interpret this result as normal/abnormal. MPV (test code = 37866-3) 10.1 fL 9.5-12.9 NRBC/100 WBC (test code = 2589668919) 0.0 See_Comment [Automated [employer] ssage] The system which generated this result transmitted reference range: 0.0 - 10.0 /100 WBCs. The reference range was not used to interpret this result as normal/abnormal. NRBC x10^3 (test code = 3323804975) See_Comment [Automated messa ge] The system which generated this result transmitted reference range: 10*3/?L. The reference range was not used to interpret this result as normal/abnormal. GRAN MAT (NEUT) % (test code = 770-8) 59.5 % IMM GRAN % (test code = 3753662360) 0.10 % LYMPH % (test code = 736-9) 31.2 % MONO % (test code = 5905-5) 5.9 % EOS % (test code = 713-8) 2.8 % BASO % (test code = 706-2) 0.5 % GRAN MAT x10^3(ANC) (test code = 1436847415) 5.43 10*3/uL 1.88-7.09 IMM GRAN x10^3 (test code = 8569995942) 0.00-0.06 LYMPH x10^3 (test code = 731-0) 2.85 10*3/uL 1.32-3.29 MONO x10^3 (test code = 742-7) 0.54 10*3/uL 0.33-0.92 EOS x10^3 (test code = 711-2) 0.26 10*3/uL 0.03-0.39 BASO x10^3 (test code = 704-7) 0.05 10*3/uL 0.01-0.07 Lab Interpretation (test code = 98120-1) Abnormal [facility] WITH [id number] 05:04:15* Test Item Value Reference Range Interpretation [...] 32.5 g/dL 31.6-35.1 RDW-SD (test code = 77290-1) 43.6 fL 39.0-49.9 RDW-CV (test code = 788-0) 12.8 % 12.0-15.5 PLT (test code = 777-3) 326 See_Comment [Automated messa ge] The system which generated this result transmitted reference range: 166 - 358 10*3/?L. The reference range was not used to interpret this result as normal/abnormal. MPV (test code = 05035-6) 10.1 fL 9.5-12.9 NRBC/100 WBC (test code = 1994228618) 0.0 See_Comment [Automated [employer] ssage] The system which generated this result transmitted reference range: 0.0 - 10.0 /100 WBCs. The reference range was not used to interpret this result as normal/abnormal. NRBC x10^3 (test code = 1581668404) See_Comment [Automated messa ge] The system which generated this result transmitted reference range: 10*3/?L. The reference range was not used to interpret this result as normal/abnormal. GRAN MAT (NEUT) % (test code = 770-8) 59.5 % IMM GRAN % (test code = 1279233265) 0.10 % LYMPH % (test code = 736-9) 31.2 % MONO % (test code = 5905-5) 5.9 % EOS % (test code = 713-8) 2.8 % BASO % (test code = 706-2) 0.5 % GRAN MAT x10^3(ANC) (test code = 7157508433) 5.43 10*3/uL 1.88-7.09 IMM GRAN x10^3 (test code = 6388820273) 0.00-0.06 LYMPH x10^3 (test code = 731-0) 2.85 10*3/uL 1.32-3.29 MONO x10^3 (test code = 742-7) 0.54 10*3/uL 0.33-0.92 EOS x10^3 (test code = 711-2) 0.26 10*3/uL 0.03-0.39 BASO x10^3 (test code = 704-7) 0.05 10*3/uL 0.01-0.07 Lab Interpretation (test code = 72751-8) [facility]normal [facility] [id number] 14:10:00 * Test Item Value Reference Range [...] used to interpret this result as normal/abnormal. [facility] glycoprotein 1 IgG and IgM panel - [id number] 19:14:00* Test Item Value Reference Range Interpretation Comme nts beta 2 glyco,IgG (test code = beta 2 glyco,IgG) <9 0-20 beta 2 glyco,IgA (test code = beta 2 glyco,IgA) <9 0-25 beta 2 glycoprot,IgM (test c ode = beta 2 glycoprot,IgM) <9 0-32 [facility] IgG and IgM panel - [id number] 19:14:00 * Test Item Value Reference Range Interpretation Comme nts anticardiolipin Ab IgG (test code = anticardiolipin Ab IgG) <9 0-14 anticardiolipin Ab IgM (test code = anticardiolipin Ab IgM) <9 0-12 [facility]Pap w/rfx HPV if ASCUS+leukorrhea panel [...] (test code = vance - swab) normal [facility] CenterUrinalysis macro (dipstick) panel - [id number] 09:40:09* Test Item Value Reference Range Interpretation Comme nts Leukocytes (test code = Leukocytes) Trace Nitrite (test code = Nitrite) negative Urobilinogen (test code = Urobilinogen) .2 Protein (test code = Protein) Negative pH (test code = pH) 5.5 Blood (test code = Blood) Negative Specific Newbury (test code = Specific Newbury) 1.030 Ketone (test code = Ketone) Negative Bilirubin (test code = Bilirubin) Small Glucose (test code = Glucose) Negative Appearance (test code = Appearance) Cloudy Color (test code = Color) Yellow [facility] - cancer history assessment [id number] 08:33:00 * Test Item Value Reference Range Interpretation Comme [facility] - cancer history assessment result (test code [place] [facility] [place]) does not meet criteria [facility]CT + NG + TV, DNA, urine/[id number] 00:00:00* Test Item Value Reference Range Interpretation Comme nts vance - swab (test code = vance - swab) normal gardnerella (test code = gardnerella) abnormal A CT/NG (test code = CT/NG) normal trichomonas vaginalis addon - swab (test code = trichomonas vaginalis addon - swab) normal [facility] CenterUrinalysis macro (dipstick) panel - [id number] 14:03:06* Test Item Value Reference Range Interpretation Comme nts Leukocytes (test code = Leukocytes) Negative Nitrite (test code = Nitrite) negative Urobilinogen (test code = Urobilinogen) .2 Protein (test code = Protein) Negative pH (test code = pH) 6.0 Blood (test code = Blood) Negative Specific Newbury (test code = Specific Newbury) 1.030 Ketone (test code = Ketone) Negative Bilirubin (test code = Bilirubin) Negative Glucose (test code = Glucose) Negative Appearance (test code = Appearance) Clear Color (test code = Color) Yellow [facility] [id number] 20:02:00* Test Item Value Reference Range Interpretation Comme nts POCT PREG (test code = 1605) Negative On board controls acceptable with C Line (test code = 3574) Yes POCT PREG LOT # (test code = 3575) POCT PREG TEST DATE ( test code = 3576) [facility] Notes Date/Time Note Provider Source 2024-12-19 16:37:58 [...] understanding. OLYA CHEN RN 12/19/2024 4:44 PM DING TRADES INSTRUCTOR Olya Chen RN [facility] 2024-12-19 16:23:40 Derek Garcia is a 29 year old female Called the clinic earlier, was prescribed progesterone. Pt calling again to talk to a nurse she states she started spotting, she is concerned and will like a call back for advice ER Torrez [facility] 2024-12-19 14:06:59 Patient advised per herbert Blake to be seen in 2 weeks for usg. Appointment made Dick Malave RN 12/19/2024 2:07 PM DING TRADES INSTRUCTOR Dick Malave RN [facility] 2024-12-19 13:55:41 Returned patients call regarding [...] understanding. Dick Malave RN 12/19/2024 1:57 PM [facility] 2024-12-19 12:09:06 Derek Garcia is a 29 year old female Calling to go over test results. Pt was advised respond time frame can be up to two business days. ER Torrez [facility] 2024-12-19 11:39:48 Pt would like to speak with a nurse about results. ER Larsen [facility] 2024-12-18 11:15:00 50 Glucola @ 1112. No issues. Pt finished @ 1112 Draw Time @ 1212. [facility] 2024-12-18 11:15:00 Images from the original note were not included. Venipuncture collection performed by clean technique on the right anticubitus. Total of 1 attempts were made. Slight pressure and a bandage/dressing were applied to the site(s). The patient experienced no complications. The following specimens were processed according to instructions and sent to [facility] laboratories per lab order on 12/18/2024: LT BLUE 3 SST 6 RED 1 LAV 2 PPT DK GREEN (LiHep) DK GREEN (SodH) SHELLEY DK BLUE (K2) DK BLUE (S) ACD Blood Culture NIPT/NTD DING TRADES INSTRUCTOR [facility] 2024-12-18 11:15:00 Addended by: SHARIFA PAZ on: 12/18/2024 03:18 PM Modules accepted: Orders DING TRADES INSTRUCTOR Sharifa Boyce [facility] 2024-12-18 11:15:00 Addended by: SHARIFA PAZ on: 12/18/2024 06:24 PM Modules accepted: Orders [facility] 2024-12-18 10:00:00 Age: [age] year old GA: 8w1d by reported THOMAS Nausea without vomiting -Not bothersome -Discussed sharonda rnoq-cuk-exvmlct as needed. 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 Expectations for weight gain this include 15-25 pounds. Encouraged to call if have any additional questions or concerns. Discussed aneuploidy and carrier screening; patient opts for panorama/Horizon. Discussed with patient that she can have HEALTHY support with her during her delivery (which is subject to change). Declined flu vaccine today Follow-up in 4 weeks for visit with DIRECTOR OF FIELD SERVICE Follow-up in 8 weeks for pedal visit with Whitley [facility] 2024-12-05 18:25:18 Registration called and said patient left because she was not getting and ultrasound. Patient eloped after being seen by provider. DING TRADES INSTRUCTOR George Fajardo RN [facility] 2024-05-16 15:57:40 Called patient, notified patient positive for UTI, BV, and Yeast. Educated patient on medications, good perineal hygiene, and increasing fluids. Pt verbalized understanding. ISA GARCIA RN 05/16/2024 3:57 PM Isa Garcia RN [facility] 2024-05-16 14:34:04 Please call patient and let her know she has UTI, BV, and vaginal yeast. All erx sent. [facility] 2024-04-09 00:17:00 [facility] ([facility]) Hospitalist History Physical REPORT#:[id number] REPORT STATUS: Signed REPORT INITIALIZATION DATE:04/09/24 TIME: 16 PATIENT: DEREK GARCIA UNIT #: [id number] ROOM/BED: : 95 AGE: 28 SEX: F ATTEND: Flor Rouse MD ADM DT: AUTHOR: Rosaline Goss MD REPT SERVICE DT/TIME: 04/09/247 * ALL edits or amendments must be made on the electronic/computer document * History of Present Illness HPI Chief complaint: Suspected ectopic HPI: 28 y/o presents as a self transported transport for evaluation of a suspected right ectopic . Patient presented to [facility] in [facility] with a positive test and RLQ [...] % (Auto) (14.5 - 29.7 %) 20.5 [place] % (Auto) (3.6 - 10.2 %) 6.7 Eos % (Auto) (0.0 - 3.0 %) 1.3 Baso % (Auto) (0.1 - 0.9 %) 0.3 Neut # (Auto) (K/mm3) 8.6 Lymph # (Auto) (K/mm3) 2.5 [place] # (Auto) (K/mm3) 0.8 Eos # (Auto) (K/mm3) 0.16 Baso # (Auto) (K/mm3) 0.0 Laboratory Tests 04/08 2201 Miscellaneous Maternal Serum HCG (mIU/mL) 2719 Laboratory Tests 04/08 2201 Urines Urine Color (YELLOW) YELLOW Urine Appearance (CLEAR) Slightly-Cloudy Urine pH (5 - 9) 5.0 Ur Specific Newbury (1.001 - 1.035) 1.023 Urine Protein (NEG) [...] treat with the Methotrexate. at 0028 RPT #:[id number] END OF REPORT [facility] 2024-04-08 22:01:00 [facility] ([facility]) EMERGENCY PROVIDER REPORT REPORT#:[id number] REPORT STATUS: Signed DATE:04/08/24 TIME: 2200 PATIENT: DEREK GARCIA UNIT #: [id number] ROOM/BED: AGE: 28 SEX: F PCP PHYS: [...] G6, P0 who transferred from [facility] due to concerns of ectopic . The [...] Temp 98.0 04/09 118 Pulse 79 04/09 011 Resp 16 04/098 Review of Vital Signs Reviewed Focused PE [...] % (Auto) (14.5 - 29.7 %) 20.5 [place] % (Auto) (3.6 - 10.2 %) 6.7 Eos % (Auto) (0.0 - 3.0 %) 1.3 Baso % (Auto) (0.1 - 0.9 %) 0.3 Neut # (Auto) (K/mm3) 8.6 Lymph # (Auto) (K/mm3) 2.5 [place] # (Auto) (K/mm3) 0.8 Eos # (Auto) (K/mm3) 0.16 Baso # (Auto) (K/mm3) 0.0 Miscellaneous Maternal Serum HCG (mIU/mL) 2719 Urines Urine Color (YELLOW) YELLOW Urine Appearance (CLEAR) Slightly-Cloudy Urine pH (5 - 9) 5.0 Ur Specific New[place] (1.001 - 1.035) 1.023 Urine Protein (NEG) [...] 97 On: Room air Interpretation Interpreted by mi Time 2142 Re-Evaluation MDM )( Re-Evaluation/Progress #1 Text/Dict Note discussed results with patient her lab and ultrasound. Explained to patient that Dr. Goss who is the OB hospitalist will come and speak to her about her options. 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 at 0523 RPT #:[id number] END OF REPORT [facility] 2023-10-24 13:00:00 Addended by: RADHA JAMES on: 10/25/2023 03:51 PM Modules accepted: Orders [facility]
--- NOTE | 2024-12-26 23:44 | EDPHYS ---
Physician Documentation [facility] Name: Beena Garcia Age: 29 yrs Sex: Female : 1995 Arrival Date: 12/26/2024 Time: 22:18 Bed 20 Private MD: ED Physician Eduard Grady HPI: 12/26 23:59 This 29 yrs old Female presents to ER via Ambulatory with complaints of sb4 Vaginal Bleeding, + Preg <12wks. 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 She states that she was seen here a few days ago for the same issue. States that the bleeding stopped but resumed today. States that it is light pink in his a small amount. Denies any pain or cramping. 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 - Infectious Disease History:: Denies. - Social history:: Smoking status: Patient/guardian denies using tobacco, Patient/guardian denies using alcohol, street drugs. ROS: 23:59 Constitutional: Negative for fever, chills, and weight loss, sb4 23:59 : Positive for per HPII, 23:59 All other systems are negative, Exam: 23:59 Constitutional: This is a well developed, well nourished patient who is awake, alert, sb4 and in no acute distress. Head/Face: Normocephalic, atraumatic. Eyes: Extra-ocular motions intact. Periorbital areas with no swelling, redness, or edema. ENT: Mucous membranes moist. Cardiovascular: Regular rate and rhythm with a normal S1 and S2. Respiratory: No increased work of breathing, no retractions or nasal flaring. Abdomen/GI: Soft, non-tender, no distension. Skin: Warm, dry with normal turgor. Normal color with no rashes, no lesions, and no evidence of cellulitis. Vital Signs: 22:46 BP 112 / 69; Pulse 101; Resp 18; Temp 97.9; Pulse Ox 97% ; Weight 72.57 kg; Height 5 br2 ft. 1 in. ; Pain 0/10; 22:46 Body Mass Index 30.23 (72.57 kg, 154.94 cm) br2 22:46 Pain Scale: Adult br2 MDM: 22:34 Medical Screening Exam initiated sb4 12/27 00:00 Data reviewed: vital signs, nurses notes, radiologic studies. Counseling: I had a sb4 detailed discussion with the patient and/or guardian regarding the historical points, exam findings, and any diagnostic results supporting the discharge/admit diagnosis, the need for outpatient follow up, an OB/Gyne specialist, to return to the emergency department if symptoms worsen or persist or if there are any questions or concerns that arise at home. ED course: Patient saw the heartbeat of her fetus during her ultrasound and is no longer interested in completing any blood work. She was requesting to be discharged at this time. 12/26 22:52 Order name: US Transvaginal Ob sb4 12/26 22:52 Order name: IV Saline Lock sb4 12/26 22:52 Order name: Labs collected and sent sb4 Administered Medications: No medications were administered Disposition: 05:11 Co-signature as Attending Physician, Eduard Grady MD I reviewed the patient's care rn provided by the Advanced Practice Provider and agree with the diagnosis and treatment plan. Disposition Summary: 12/26/24 23:43 Discharge Ordered Notes: Location: Home sb4 Problem: new sb4 Symptoms: are unchanged sb4 Condition: Undetermined sb4 Diagnosis - Threatened sb4 Followup: sb4 - With: Private Physician - When: 1 week - Reason: Recheck today's complaints, Re-evaluation by your physician Discharge Instructions: - Discharge Summary Sheet sb4 - Threatened Miscarriage sb4 - Vaginal Bleeding During , First Trimester sb4 Forms: - Patient Portal Instructions sb4 - Leadership Thank You Letter sb4 Signatures: Dispatcher [employer] Eduard Caro MD MD rn Brown, Sophia, PA-C PA-C sb4 Danuta Jane RN RN br2 Corrections: (The following items were deleted from the chart) 12/26 22:53 22:53 BASIC METABOLIC PANEL+C.LAB.BRZ ordered. EDMS EDMS 22:53 22:53 CBC+H.LAB.BRZ ordered. EDMS EDMS 22:53 Test, Urine+UC.LAB.BRZ ordered. EDMS EDMS 22:53 QUANTITATIVE HCG+C.LAB.BRZ ordered. EDMS EDMS 22:53 Urinalysis+U.LAB.BRZ ordered. EDMS EDMS 22:53 Transvaginal Ob+US.RAD.BRZ ordered. EDMS EDMS
--- NOTE | 2024-12-27 00:15 | ER ---
Nurse's Notes [facility] Name: Beena Garcia Age: 29 yrs Sex: Female : 1995 Arrival Date: 12/26/2024 Time: 22:18 Bed 20 Private MD: Diagnosis: Threatened Presentation: 12/26 22:46 Chief complaint: Patient states: C/O VAGINAL BLEEDING RED/PINK, PT IS APPROX 9 WEEKS br2 PREG, DENIES PAIN. Coronavirus screen: Client denies travel out of the [place] in the last 14 days. Ebola Screen: Patient denies exposure to infectious person. Initial Sepsis Screen: Does the patient meet any 2 criteria? No. Patient's initial sepsis screen is negative. Does the patient have a suspected source of infection? No. Patient's initial sepsis screen is negative. Risk Assessment: Do you want to hurt yourself or someone else? Patient reports no desire to harm self or others. Onset of symptoms was December 26, 2024 at 22:00. 22:46 Method Of Arrival: Ambulatory br2 22:46 Acuity: LETTY 3 br2 Triage Assessment: 23:44 General: Appears in no apparent distress. comfortable, Behavior is calm, cooperative. br2 Pain: Denies pain. : No signs and/or symptoms were reported regarding the genitourinary system. [place] [employer]: 23:44 8, Living 0, LMP 10/14/2024, unknown br2 Historical: - Allergies: 23:44 Codeine (Hives); br2 - PSHx: 23:44 L fallopian tube removed; br2 - Immunization history:: Adult Immunizations up to date. - Infectious Disease History:: Denies. - Social history:: Smoking status: Patient/guardian denies using tobacco, Patient/guardian denies using alcohol, street drugs. Screenin/08 00:14 [facility] ED Fall Risk Assessment (Adult) History of falling in the last 3 months, br2 including since admission No falls in past 3 months (0 pts) Confusion or Disorientation No (0 pts) Intoxicated or Sedated No (0 pts) Impaired Gait No (0 pts) Mobility Assist Device Used No (0 pt) Altered Elimination No (0 pt) Score/Fall Risk Level 0 - 2 = Low Risk. Abuse screen: Denies threats or abuse. Denies injuries from another. Nutritional screening: No deficits noted. Tuberculosis screening: No symptoms or risk factors identified. Assessment: 00:14 General: Patient wants to leave after seeing the baby on the ultrasound. She "feels me1 better". Refusing blood and urine. RACHELL Stearns informed. Vital Signs: 12/26 22:46 BP 112 / 69; Pulse 101; Resp 18; Temp 97.9; Pulse Ox 97% ; Weight 72.57 kg; Height 5 br2 ft. 1 in. ; Pain 0/10; 22:46 Body Mass Index 30.23 (72.57 kg, 154.94 cm) br2 22:46 Pain Scale: Adult br2 ED Course: 22:19 Patient arrived in ED. im 22:23 Irene Izaguirre PA-C is PHCP. sb4 22:23 Eduard Grady MD is Attending Physician. sb4 23:40 US Transvaginal Ob In Process Unspecified. EDMS 23:44 Triage completed. br2 23:44 Arm band placed on. br2 23:45 Lori Greenwood, RN is Primary Nurse. me1 23:51 No provider procedures requiring assistance completed. Patient did not have IV access br2 during this emergency room visit. 12/27 00:14 Patient has correct armband on for positive identification. Bed in low position. Call br2 light in reach. Side rails up X 1. Provided Education on: PLAN OF CARE. Administered Medications: No medications were administered Outcome: 03 23:43 Discharge ordered by MD. sb4 12/27 00:15 Discharged to home ambulatory, me1 Condition: stable Discharge instructions given to patient, Instructed on discharge instructions, follow up and referral plans. Demonstrated understanding of instructions, follow-up care, medications, 00:15 Patient left the ED. me1 Signatures: Dispatcher [employer] EDMS Irene Izaguirre PA-C PA-C sb4 Annette Basilio Lori Greenwood, RN RN me1 Danuta Jane RN RN br2 Corrections: (The following items were deleted from the chart) 02:51 02:49 Reassessment: PT STATES SHE DOESN'T WANT IV/BLOOD WORK OR IV. PT STATES SHE br2 LOOKED AT [facility] AND SHE IS READY TO GO. PROVIDER CARRIE NOTIFIED br2
--- NOTE | 2024-12-27 00:36 | RAD REPORT ---
EXAM: US , Transvaginal CLINICAL HISTORY: The patient is 29 years old and is Female; VAGINAL BLEEDING TECHNIQUE: Real-time transvaginal obstetrical ultrasound of the maternal pelvis and a first trimester pregnanc y with image documentation. Transvaginal imaging was used for better evaluation of the fetus and adnexa. COMPARISON: No relevant prior studies available. FINDINGS: GESTATION: A single intrauterine gestational sac and yolk sac are present. A pole with a cr own-rump length of 2.3 cm correlating to 9 weeks 0 days is present. heart rate 169 bpm. A small hypoechoic collection adjacent to the gestational sac measuring 0.3 x 1.1 x 0.5 cm is present. PLACENTA/AMNIOTIC FLUID: Cannot be adequately evaluated due to the early gestational age. UTERUS/CERVIX: Unremarkable. No myometrial mass. OVARIES: The right ovary is normal. Left ovary is not visualized. FREE FLUID: No free fluid. IMPRESSION: 1. Single IUP at 9 weeks 0 days by CRL with heart rate of 169 bpm. 2. Small subchorionic hemorrhage. Recommend attention on follow-up. Electronically signed by: Stephanie Hutchins MD 12/27/2024 12:29 AM [facility] Due to temporary technical issues with the [employer] scribe reporting system, reports are being sign ed by the in-house radiologist without review as a courtesy to ensure prompt reporting the interpreting rad iologist is fully responsible for the content of the report. Transcribed Date/Time: 12/27/2024 12:35 AM
[2024-12-27 00:46] VITALS: BP 112/69; TEMP 97.9; O2SAT 97
== END 2024-12-27 00:15 | disposition home or self-care (01) ==
LOC: ER 22:18
DX: O20.0 Threatened abortion (principal); Z3A.09 9 weeks gestation of pregnancy
CPT/HCPCS: 76817; 99282

== ENCOUNTER 2025-01-30 11:44 | Emergency (ER) | payer OTHER ==
--- OUTSIDE RECORDS SUMMARY | 2025-01-30 11:50 | XMS REPORT | Continuity of Care Document ---
Author Name Unknown Address [address] [place] [address] [facility] [place] Address [address] [place] [address] Care Team Providers Care Risk Reduction Counselor Name Role Phone Stephanie Parisi Primary Care Physicia n ALTAGRACIA WHITLEY Attending Clinician Unavailable ALTAGRACIA WHITLEY Attending Clinician Unavailable Altagracia Whitley MD Attending Clinician [phone] Doctor Unassigned, [place] Attending Clinician U JAD Crouch Attending Clinician Unavailable Jad Padron DNP Attending Clinician [phone], [facility] Attending Clinician Unavailable STEPHANIE HICKS Attending Clinician Unavail able MARCUS MCKEON Attending Clinician Unavail able MARCUS MCKEON Attending Clinician Unavail able Marcus Mckeon MD Attending Clinician [phone] ENA SMALL Attending Clinician Unavaila Shelby Tavarez Attending Clinician [phone] SHELBY MERCER Attending Clinician Unavailable Stephanie Parisi Attending Clinician + Ena Small CNM Attending Clinician [phone] Stephanie Parisi Attending Clinician + Flor Rouse Attending Clinician Unavailable ELISE HERNANDEZ Attending Clinician Unavailyaerlis Blunt Attending Clinician Unavailable ERICH TAYLOR Attending Clinician Unavailable UNKNOWN, ATTENDING Attending Clinician Unavailab RADHA Dave Attending Clinician Unavailable Radha James PA-C Attending Clinician [phone] Unknown, Attending Attending Clinician Unavailab le Doctor Unassigned, [place] Attending Clinician U IVY Pabon Attending Clinician UnavailVELIA Mcduffie Attending Clinician Unavailable RICHARD AMAYA Attending Clinician Unavailab KARLA Damian Attending Clinician Unavailyarelis Barreto, Ang-Rmchp Attending Clinician Unavailable Ida Marroquin Attending Clinician [phone] Richard Machuca Attending Clinician UnaPardeep Smart DO Attending Clinician [phone] IDA VARELA Attending Clinician UnavailLyndon Alvarez Admitting Clinician Unavailab daya Blunt Admitting Clinician Unavailable Payers Payer Name Policy Type Policy Number Effective Date Expirati on Date Source [facility] [id number] 2025 00:00:00 [facility] [id number] 2023 00:00:00 [facility] (MEDICAID HMO) [id number] 2016 00:00:00 MEDICAID PENDING PENDING 2021 00:00:00 [facility] [id number] 2017 00:00:00 Problems Condition Name Condition Details Condition Category Status Onset Date Resolution Date Last Treatment Date Treating Clinician Comments Source Obesity in Obesity in Disease Active 12-18 00:00: 00 [facility] Excessive weight gain Excessive weight gain Disease Active 12-18 00:00: 00 [facility] of left fallopian tube of Left Fallopian Tube Problem Active 01-31 00:00: 00 [facility] High risk due to recurrent loss High Risk Due to Recurrent Loss Problem Active 01-22 00:00: 00 [facility] History of abnormal cervical Pap smear History of abnormal cervical Pap smear Disease Active 5- 00:00: 00 Overview: Formattin g of this note might be different from the original. 2016 Negative PAP +[id number] Negative PAP +[id number] Negative PAP +HPV, negative [id number] Negative PAP and [id number] Negative PAP and [id number] pending [facility] Encounter for other contracept rishi management Encounter for other contracept rishi management Disease Resolve d 05-13 00:00: 00 2024-12-18 00:00:00 2024-12-18 11:17:12 [facility] Over weight Over weight Disease Resolve d 05-13 00:00: 00 2024-12-18 00:00:00 2024-12-18 11:17:14 [facility] Other general counseling and advice for contracept rishi management Other general counseling and advice for contracept rishi management Disease Resolve d 03-31 00:00: 00 2024-05-13 00:00:00 2024-05-13 13:17:52 [facility] Over weight Over weight Disease Resolve d 2016-10 2- 00:00: 00 2024-05-13 00:00:00 2024-05-13 13:17:50 [facility] Cyst of right ovary Cyst of right ovary Disease Resolve d 04-13 00:00: 00 2023-03-03 00:00:00 2023-03-03 12:56:01 [facility] Susceptibl e to varicella (non-immun e), currently Susceptibl e to varicella (non-immun e), currently Disease Resolve d 03-23 00:00: 00 2022-03-31 00:00:00 2022-03-31 16:16:07 [facility] Rubella non-immune status, antepartum Rubella non-immune status, antepartum Disease Resolve d 6- 00:00: 00 2022-03-31 00:00:00 2022-03-31 16:16:09 [facility] High-risk in first trimester High-risk in first trimester Disease Active 6- 00:00: 00 2022-03-31 00:00:00 2022-03-31 16:16:10 [facility] History of miscarriag e History of miscarriag e Disease Resolve d 6- 00:00: 00 2022-03-31 00:00:00 2022-03-31 16:16:11 [facility] Vaginal bleeding in Vaginal bleeding in Disease Resolve d 6- 00:00: 00 2022-03-31 00:00:00 2022-03-31 16:16:05 [facility] Dysuria Dysuria Disease Resolve d 5-05 00:00: 00 2021-03-22 00:00:00 2021-03-22 16:30:58 [facility] Maternal varicella, non-immune Maternal varicella, non-immune Disease Resolve d 3-23 00:00: 00 2021-03-22 00:00:00 2021-03-22 16:31:00 [facility] Screening examinatio n for STD (sexually transmitte d disease) Screening examinatio n for STD (sexually transmitte d disease) Disease Resolve d 3-16 00:00: 00 2021-03-22 00:00:00 2021-03-22 16:31:03 [facility] UTI symptoms UTI symptoms Disease Resolve d 3-16 00:00: 00 2021-03-22 00:00:00 2021-03-22 16:31:05 [facility] Contracept rishi management Contracept rishi management Disease Resolve d 2016-10 2- 00:00: 00 2021-03-22 00:00:00 2021-03-22 16:30:57 [facility] Miscarriag e Miscarriag e Disease Resolve d 1-20 00:00: 00 2017-09-21 00:00:00 2017-09-21 14:05:51 [facility] Other general counseling and advice for contracept rishi management Other general counseling and advice for contracept rishi management Disease Resolve d -20 00:00: 00 2017-09-21 00:00:00 2017-09-21 14:05:51 [facility] Missed Missed Disease Resolve d 2015-10 2-19 00:00: 00 2017-09-21 00:00:00 2017-09-21 14:05:50 [facility] Rubella non-immune status, antepartum Rubella non-immune status, antepartum Disease Resolve d 2015-10 00:00: 00 2017-09-21 00:00:00 2017-09-21 14:05:49 [facility] Supervisio n of high risk , antepartum Supervisio n of high risk , antepartum Disease Resolve d 2015-10 00:00: 00 2017-09-21 00:00:00 2017-09-21 14:05:47 [facility] Flu vaccine need Flu vaccine need Disease Resolve d 2015-10 00:00: 00 2017-09-21 00:00:00 2022-05-07 00:43:11 [facility] Flu vaccine need Flu vaccine need Disease Resolve d 2015-10 00:00: 00 2017-09-21 00:00:00 2022-05-07 00:43:11 [facility] Surveillan ce of previously prescribed contracept rishi pill Surveillan ce of previously prescribed contracept rishi pill Disease Resolve d 03-30 00:00: 00 2016-09-06 00:00:00 2016-09-06 11:18:49 [facility] Allergies, Adverse Reactions, Alerts Allergy Name Allergy Type Status Severity Reaction(s) Onset Date Inactive Date Treating Clinician Comments Source codeine DA Active SV HIVES 04-08 00:00: [address] [facility] Codeine Propensi ty to adverse reaction s Active Hives 02-27 00:00: 00 [facility] CODEINE DRUG INGREDI Active Hives 02-27 00:00: 00 [facility] Codeine Allergy to substanc e Active [facility] Social History Social Habit Start Date Stop Date Quantity Comments Source ASSERTION 2024-11-05 00:00:00 [facility] Alcoholic beverage intake 2025-01-16 00:00:00 2025-01-16 00:00:00 Ex-drinker (finding) [facility] History of Social function 2024-05-13 00:00:00 2024-05-13 00:00:00 [facility] Alcohol intake 2023-11-13 00:00:00 2023-11-13 00:00:00 Current drinker of alcohol (finding) [facility] Exposure to SARS-CoV-2 (event) 2023-02-18 00:00:00 2023-02-28 06:11:00 Not sure [facility] Alcohol Comment 2023-02-28 00:00:00 2023-02-28 00:00:00 social [facility] Tobacco use and exposure 2022-06-21 00:00:00 2022-06-21 00:00:00 Smokeless tobacco non-user [facility] Sex assigned at 1995 00:00:00 1995 00:00:00 [facility] Smoking Status Start Date Stop Date Source Never smoked tobacco [facility] Medications Ordered Medication Name Filled Medication Name Start Date Stop Date Current Medication? Ordering Clinician Indication Dosage Frequency Signature (SIG) Comments Components Source Vit Comb.10-Iro n-FA 65-1 mg Tab 12-18 10:12: 20 Yes Take by mouth. [facility] progesteron e 200 mg capsule 12-18 00:00: [id number] 1 pill in vagina nightly until 12 weeks of gestation [facility] metroNIDAZO LE 500 mg tablet 11-19 00:00: 00 12-18 00:00 :00 No [id number] 500mg Take 1 tablet by mouth every 12 (twelve) hours. [facility] fluconazole 150 mg tablet 11-18 00:00: 00 12-18 00:00 :00 No [id number] 150mg Take 1 tablet by mouth every 3 (three) days. [facility] norgestimat e-ethinyl estradioL (ORTHO TRI-CYCLEN, 28,) 0.18/0.215/ 0.25 mg-35 mcg (28) tablet 2023-10 00:00: 00 12-18 00:00 :00 No [id number] 1{tbl} Take 1 tablet by mouth in the morning. [facility] Nitrofurant oin&Nit. Macrocryst (MACROBID) 100 mg capsule 05-16 00:00: 00 05-27 04:59 :00 No [id number] 100mg Take 1 capsule by mouth in the morning and 1 capsule in the evening. Do all this for 10 days. [facility] metroNIDAZO LE 500 mg tablet 05-15 00:00: 00 05-23 04:59 :00 No [id number] 500mg Take 1 tablet by mouth in the morning and 1 tablet in the evening. Do all this for 7 days. [facility] fluconazole (DIFLUCAN) 150 mg tablet 05-15 00:00: 00 05-16 04:59 :00 No [id number] 150mg Take 1 tablet by mouth once now for 1 dose. [facility] phentermine HCl (PHENTERMIN E ORAL) 05-13 12:58: 39 12-18 00:00 :00 No Take by mouth. [facility] norgestimat e-ethinyl estradioL (ORTHO TRI-CYCLEN, 28,) 0.18/0.215/ 0.25 mg-35 mcg (28) tablet 05-13 00:00: 00 09-15 00:00 :00 No [id number] 1{tbl} Take 1 tablet by mouth in the morning. [facility] cefdinir 300 mg capsule 01-10 00:00: 00 05-13 00:00 :00 No [id number] 300mg Take 1 capsule by mouth every 12 (twelve) hours. [facility] fluconazole (DIFLUCAN) 150 mg tablet 2024-0 1-04 00:00: 00 05-13 00:00 :00 No [id number] 150mg Take 1 tablet by mouth every 72 (seventy-t wo) hours. [facility] Nitrofurant oin&Nit. Macrocryst (MACROBID) 100 mg capsule 1-03 00:00: 00 05-13 00:00 :00 No [id number] 100mg Take 1 capsule by mouth in the morning and 1 capsule in the evening. [facility] fluconazole (DIFLUCAN) 150 mg tablet 12 00:00: 00 03-03 04:59 :00 No [id number] 150mg Take 1 tablet by mouth once now for 1 dose. Take second tablet in 1 week [facility] phentermine HCl (PHENTERMIN E ORAL) 5 08:20: 44 Yes Take by mouth. [facility] norgestimat e-ethinyl estradioL (ORTHO TRI-CYCLEN, 28,) 0.18/0.215/ 0.25 mg-35 mcg (28) tablet 9-16 00:00: 00 02-28 00:00 :00 No [id number] 1{tbl} Take 1 tablet by mouth in the morning. [facility] Nitrofurant oin&Nit. Macrocryst (MACROBID) 100 mg capsule - 00:00: 00 02-28 00:00 :00 No [id number] 100mg Take 1 capsule by mouth 2 (two) times daily. [facility] PNV 67-iron ps-folate no.1-dha (VITAFOL ULTRA) 29 mg iron- 1 mg-200 mg Cap - 00:00: 00 10-28 00:00 :00 No [id number] 1{each} Take 1 Each by mouth daily. [facility] norgestimat e-ethinyl estradioL 0.18/0.215/ 0.25 mg-25 mcg tablet 5-05 00:00: 00 10-28 00:00 :00 No [id number] 1{tbl} Take 1 tablet by mouth daily. [facility] ibuprofen 800 mg tablet Take 1 tablet every 6 hours by oral route as needed. ibuprofen 800 mg tablet Take 1 tablet every 6 hours by oral route as needed. No 1 Q6H ibuprofen 800 mg tablet Take 1 tablet every 6 hours by oral route as needed. [facility] Diflucan 100 mg tablet Take 1 tablet every day by oral route for 3 days. Diflucan 100 mg tablet Take 1 tablet every day by oral route for 3 days. No 1 Q1D Diflucan 100 mg tablet Take 1 tablet every day by oral route for 3 days. [facility] Immunizations Ordered Immunization Name Filled Immunization Name Date Status Comments Source HPV9 2019-09-10 00:00:00 Completed [facility] HPV9 2019-09-10 00:00:00 Completed [facility] HPV9 2019-09-10 00:00:00 Completed [facility] HPV9 2019-09-10 00:00:00 Completed [facility] HPV9 2019-09-10 00:00:00 Completed [facility] HPV9 2019-09-10 00:00:00 Completed [facility] HPV9 2019-09-10 00:00:00 Completed [facility] HPV9 2019-06-17 00:00:00 Completed [facility] HPV9 2019-06-17 00:00:00 Completed [facility] HPV9 2019-06-17 00:00:00 Completed [facility] HPV9 2019-06-17 00:00:00 Completed [facility] HPV9 2019-06-17 00:00:00 Completed [facility] HPV9 2019-06-17 00:00:00 Completed [facility] HPV9 2019-06-17 00:00:00 Completed [facility] Influenza Virus Vaccine Quad IM 3+ YRS 2016-09-06 00:00:00 Completed Influenza Virus Vaccine Quad IM 3+ YRS 2016-09-06 00:00:00 Completed [facility] Influenza Virus Vaccine Quad IM 3+ YRS 2016-09-06 00:00:00 Completed [facility] Influenza Virus Vaccine Quad IM 3+ YRS 2016-09-06 00:00:00 Completed [facility] Influenza Virus Vaccine Quad IM 3+ YRS 2016-09-06 00:00:00 Completed [facility] Influenza Virus Vaccine Quad IM 3+ YRS 2016-09-06 00:00:00 Completed [facility] Influenza Virus Vaccine Quad IM 3+ YRS 2016-09-06 00:00:00 Completed [facility] TDAP 2009-10-22 00:00:00 Completed [facility] TDAP 2009-10-22 00:00:00 Completed [facility] TDAP 2009-10-22 00:00:00 Completed [facility] TDAP 2009-10-22 00:00:00 Completed [facility] TDAP 2009-10-22 00:00:00 Completed [facility] TDAP 2009-10-22 00:00:00 Completed [facility] TDAP 2009-10-22 00:00:00 Completed [facility] HPV9 Unknown Completed [facility] TDAP Unknown Completed [facility] Influenza Virus Vaccine Quad IM 3+ YRS Unknown Completed [facility] HPV9 Unknown Completed [facility] TDAP Unknown Completed [facility] Influenza Virus Vaccine Quad IM 3+ YRS Unknown Completed [facility] HPV9 Unknown Completed [facility] TDAP Unknown Completed [facility] Influenza Virus Vaccine Quad IM 3+ YRS Unknown Completed [facility] HPV9 Unknown Completed [facility] TDAP Unknown Completed [facility] Influenza Virus Vaccine Quad IM 3+ YRS Unknown Completed [facility] HPV9 Unknown Completed [facility] TDAP Unknown Completed [facility] Influenza Virus Vaccine Quad IM 3+ YRS Unknown Completed [facility] HPV9 Unknown Completed [facility] TDAP Unknown Completed [facility] Influenza Virus Vaccine Quad IM 3+ YRS Unknown Completed [facility] HPV9 Unknown Completed [facility] TDAP Unknown Completed [facility] Influenza Virus Vaccine Quad IM 3+ YRS Unknown Completed [facility] HPV9 Unknown Completed [facility] TDAP Unknown Completed [facility] Influenza Virus Vaccine Quad IM 3+ YRS Unknown Completed [facility] HPV9 Unknown Completed [facility] TDAP Unknown Completed [facility] Influenza Virus Vaccine Quad IM 3+ YRS Unknown Completed [facility] HPV9 Unknown Completed [facility] TDAP Unknown Completed [facility] Influenza Virus Vaccine Quad IM 3+ YRS Unknown Completed [facility] HPV9 Unknown Completed [facility] TDAP Unknown Completed [facility] Influenza Virus Vaccine Quad IM 3+ YRS Unknown Completed [facility] HPV9 Unknown Completed [facility] TDAP Unknown Completed [facility] Influenza Virus Vaccine Quad IM 3+ YRS Unknown Completed [facility] HPV9 Unknown Completed [facility] TDAP Unknown Completed [facility] Influenza Virus Vaccine Quad IM 3+ YRS Unknown Completed [facility] HPV9 Unknown Completed [facility] TDAP Unknown Completed [facility] Influenza Virus Vaccine Quad IM 3+ YRS Unknown Completed [facility] HPV9 Unknown Completed [facility] TDAP Unknown Completed [facility] Influenza Virus Vaccine Quad IM 3+ YRS Unknown Completed [facility] HPV9 Unknown Completed [facility] TDAP Unknown Completed [facility] Influenza Virus Vaccine Quad IM 3+ YRS Unknown Completed [facility] HPV9 Unknown Completed [facility] TDAP Unknown Completed [facility] Influenza Virus Vaccine Quad IM 3+ YRS Unknown Completed [facility] HPV9 Unknown Completed [facility] TDAP Unknown Completed [facility] Influenza Virus Vaccine Quad IM 3+ YRS Unknown Completed [facility] HPV9 Unknown Completed [facility] TDAP Unknown Completed [facility] Influenza Virus Vaccine Quad IM 3+ YRS Unknown Completed [facility] Vital Signs Vital Name Observation Time Observation Value Comments S ource Systolic blood pressure 2025-01-16 17:59:00 115 mm[Hg] [facility] Diastolic blood pressure 2025-01-16 17:59:00 71 mm[Hg] [facility] Heart rate 2025-01-16 17:59:00 85 /min [facility] Body temperature 2025-01-16 17:59:00 37.67 Shelly [facility] Respiratory rate 2025-01-16 17:59:00 18 /min [facility] Body weight 2025-01-16 17:59:00 74.481 [facility] BMI 2025-01-16 17:59:00 30.03 kg/m2 [facility] Systolic blood pressure 2024-12-18 16:24:00 107 mm[Hg] [facility] Diastolic blood pressure 2024-12-18 16:24:00 71 mm[Hg] [facility] Heart rate 2024-12-18 16:24:00 90 /min [facility] Body temperature 2024-12-18 16:24:00 37.28 Shelly [facility] Respiratory rate 2024-12-18 16:24:00 18 /min [facility] Body height 2024-12-18 16:24:00 157.5 cm Univ [facility] Body weight 2024-12-18 16:24:[address] [facility] BMI 2024-12-18 16:24:00 30.40 kg/m2 [facility] Systolic blood pressure 2024-11-18 19:27:00 126 mm[Hg] [facility] Diastolic blood pressure 2024-11-18 19:27:00 78 mm[Hg] [facility] Heart rate 2024-11-18 19:27:00 70 /min [facility] Body temperature 2024-11-18 19:27:00 36.67 Shelly [facility] Respiratory rate 2024-11-18 19:27:00 18 /min [facility] Body height 2024-11-18 19:27:00 154.9 cm Univ [facility] Body weight 2024-11-18 19:27:[address] [facility] BMI 2024-11-18 19:27:00 31.33 kg/m2 [facility] Systolic blood pressure 2024-05-13 17:53:00 115 mm[Hg] [facility] Diastolic blood pressure 2024-05-13 17:53:00 76 mm[Hg] [facility] Heart rate 2024-05-13 17:53:00 74 /min [facility] Body temperature 2024-05-13 17:53:00 36.67 Shelly [facility] Respiratory rate 2024-05-13 17:53:00 18 /min [facility] Body height 2024-05-13 17:53:[address] [facility] Body weight 2024-05-13 17:53:[address] [facility] BMI 2024-05-13 17:53:00 29.32 kg/m2 [facility] BP Systolic 2024-02-15 00:00:00 108 mm[Hg] [facility] BP Diastolic 2024-02-15 00:00:00 71 mm[Hg] [facility] BMI (Body Mass Index) 2024-02-15 00:00:00 30.6 kg/m2 [facility] Height 2024-02-15 00:00:00 60 [in_i] [facility] Body Weight 2024-02-15 00:00:00 156.9 [lb_av] [facility] BP Systolic 2024-02-01 00:00:00 113 mm[Hg] [facility] Body Weight 2024-02-01 00:00:00 157.3 [lb_av] [facility] BMI (Body Mass Index) 2024-02-01 00:00:00 30.7 kg/m2 [facility] BP Diastolic 2024-02-01 00:00:00 81 mm[Hg] [facility] Height 2024-02-01 00:00:00 60 [in_i] [facility] BP Systolic 2024-01-31 00:00:00 127 mm[Hg] [facility] Body Weight 2024-01-31 00:00:00 159.2 [lb_av] [facility] BMI (Body Mass Index) 2024-01-31 00:00:00 31.1 kg/m2 [facility] Height 2024-01-31 00:00:00 60 [in_i] [facility] BP Diastolic 2024-01-31 00:00:00 75 mm[Hg] [facility] Systolic blood pressure 2024-01-11 16:12:00 116 mm[Hg] [facility] Diastolic blood pressure 2024-01-11 16:12:00 79 mm[Hg] [facility] Heart rate 2024-01-11 16:12:00 85 /min [facility] Body temperature 2024-01-11 16:12:00 36.61 Shelly [facility] Respiratory rate 2024-01-11 16:12:00 18 /min [facility] Body height 2024-01-11 16:12:00 154.9 cm [facility] Body weight 2024-01-11 16:12:[address] [facility] BMI 2024-01-11 16:12:00 29.80 kg/m2 [facility] Oxygen saturation in Arterial blood by Pulse oximetry 2024-01-11 16:12:00 99 /min [facility] Systolic blood pressure 2023-10-24 19:18:00 119 mm[Hg] [facility] Diastolic blood pressure 2023-10-24 19:18:00 75 mm[Hg] [facility] Heart rate 2023-10-24 19:18:00 98 /min [facility] Body temperature 2023-10-24 19:18:00 37.17 Shelly [facility] Respiratory rate 2023-10-24 19:18:00 16 /min [facility] Body weight 2023-10-24 19:18:[address] [facility] BMI 2023-10-24 19:18:00 31.31 kg/m2 [facility] Oxygen saturation in Arterial blood by Pulse oximetry 2023-10-24 19:18:00 97 /min [facility] Systolic blood pressure 2023-02-28 13:12:00 123 mm[Hg] [facility] Diastolic blood pressure 2023-02-28 13:12:00 88 mm[Hg] [facility] Heart rate 2023-02-28 13:12:00 91 /min [facility] Body temperature 2023-02-28 13:12:00 36.83 Shelly [facility] Respiratory rate 2023-02-28 13:12:00 18 /min [facility] Body height 2023-02-28 13:12:[address] [facility] Body weight 2023-02-28 13:12:[address] [facility] BMI 2023-02-28 13:12:00 29.56 kg/m2 [facility] BP Diastolic 2022-11-02 00:00:00 72 mm[Hg] [facility] Height 2022-11-02 00:00:00 64 [in_i] [facility] BMI (Body Mass Index) 2022-11-02 00:00:00 25 kg/m2 [facility] BP Systolic 2022-11-02 00:00:00 108 mm[Hg] [facility] Body Weight 2022-11-02 00:00:00 145.4 [lb_av] [facility] BP Diastolic 2022-10-12 00:00:00 83 mm[Hg] [facility] Height 2022-10-12 00:00:00 64 [in_i] [facility] BMI (Body Mass Index) 2022-10-12 00:00:00 24.6 kg/m2 [facility] BP Systolic 2022-10-12 00:00:00 114 mm[Hg] [facility] Body Weight 2022-10-12 00:00:00 143.3 [lb_av] [facility] BP Diastolic 2022-09-12 00:00:00 79 mm[Hg] [facility] Height 2022-09-12 00:00:00 64 [in_i] [facility] BMI (Body Mass Index) 2022-09-12 00:00:00 25.6 kg/m2 [facility] BP Systolic 2022-09-12 00:00:00 119 mm[Hg] [facility] Body Weight 2022-09-12 00:00:00 148.9 [lb_av] [facility] Systolic blood pressure 2022-07-07 20:00:00 107 mm[Hg] [facility] Diastolic blood pressure 2022-07-07 20:00:00 67 mm[Hg] [place] [facility] Heart rate 2022-07-07 20:00:00 74 /min [facility] Body temperature 2022-07-07 20:00:00 36.44 Shelly [facility] Respiratory rate 2022-07-07 20:00:00 18 /min [facility] Body height 2022-07-07 20:00:[address] [facility] Body weight 2022-07-07 20:00:[address] [facility] BMI 2022-07-07 20:00:00 28.91 kg/m2 [facility] Procedures Procedure Date / Time Performed Performing Clinician Source SCANNED LAB RESULTS 2025-01-20 16:12:11 Doctor Tammy mao, [place] [facility] <14 WEEKS US LIMITED 2025-01-16 19:45:06 Jad Padron [facility] POCT URINALYSIS W/O SPECIFIC GRAVITY 2025-01-16 18:03:00 Jad Padron [facility] SCANNED LAB RESULTS 2025-01-15 17:40:23 Doctor Tammy mao, [place] [facility] GLUCOSE 1 HOUR POST PRANDIAL 2024-12-18 18:18:00 Altagracia Whitley [facility] CBC WITH DIFF 2024-12-18 18:18:00 Altagracia Whitley [facility] HB ABO GROUPING 2024-12-18 18:18:00 Altagracia Whitley [facility] HIV 1/2 AG-AB WITH REFLEX 2024-12-18 18:18:00 Cedric Whitley [facility] PROGESTERONE, LEVEL 2024-12-18 18:18:00 Altagracia Whitley [facility] RUBELLA SCREEN IGG 2024-12-18 18:18:00 [facility] VZV ANTIBODY SCREEN 2024-12-18 18:18:00 Altagracia Whitley [facility] HEPATITIS B SURFACE ANTIGEN 2024-12-18 18:18:00 Altagracia Whitley [facility] HCV ANTIBODY 2024-12-18 18:18:00 Altagracia Whitley [facility] ADC OR ANTHONY ONLY - RPR 2024-12-18 18:18:00 Cedric Whitley [facility] ANTIPHOSPHOLIPID ANTIBODY EVALUATION-LT BLUE 2024-12-18 18:18:00 Altagracia Whitley [facility] ANTIPHOSPHOLIPID ANTIBODY EVALUATION-SST 2024-12-18 18:18:00 Altagracia Whitley [facility] LUPUS ANTICOAGULANT REFLEXIVE PANEL 2024-12-18 18:18:00 Altagracia Whitley [facility] US OB TRANSVAGINAL 2024-12-18 17:58:35 [facility]ia [facility] POCT TEST 2024-12-18 16:26:00 Altagracia Whitley [facility] POCT URINALYSIS W/O SPECIFIC GRAVITY 2024-12-18 16:26:00 Altagracia Whitley [facility] HIV 1/2 AG-AB WITH REFLEX 2024-11-18 20:06:00 Beatriz Mercer [facility] SYPHILIS IGG/IGM 2024-11-18 20:06:00 Shelby Mercer [facility] GALV ONLY - VAGINAL PATHOGENS BY NUCLEIC ACID TESTING 2024-11-18 20:02:00 Shelby Mercer [facility] POCT TEST 2024-11-18 19:52:00 Shelby Mercer [facility] ULTRASOUND, UTERUS REAL TIME WITH IMAGE DOCUMENTAITON, TRANSVAGINAL 2024-01-31 00:00:00 [facility] ULTRASOUND, UTERUS REAL TIME WITH IMAGE DOCUMENTAITON, TRANSVAGINAL 2024-01-23 00:00:00 [facility] POCT URINALYSIS 2024-01-11 00:00:00 Radha James [facility] POCT TEST 2024-01-11 00:00:00 Gwendolyn James [facility] POCT TEST 2023-10-24 19:23:00 Gwendolyn James [facility] GALV ONLY - VAGINAL PATHOGENS BY NUCLEIC ACID TESTING 2023-10-24 19:20:00 Radha James [facility] POCT URINALYSIS 2023-10-24 19:19:00 Radha James [facility] ASSIGNMENT OF BENEFITS 2023-10-24 19:09:13 Docto r Unassigned, [place] [facility] CBC WITH DIFF 2023-02-28 13:55:00 Ena Small [facility] GLYCOSYLATED HEMOGLOBIN (A1C) 2023-02-28 13:55:00 Ena Small [facility] HCV ANTIBODY 2023-02-28 13:55:00 Ena Small [facility] GC & CHLAMYDIA AMPLIFIED ASSAY 2023-02-28 13:55:00 Ena Small [facility] GALV ONLY - VAGINAL PATHOGENS BY NUCLEIC ACID TESTING 2023-02-28 13:55:00 Ena Small [facility] HIV 1/2 AG-AB WITH REFLEX 2023-02-28 13:55:00 Ena Burgos [facility] SYPHILIS IGG/IGM 2023-02-28 13:55:00 Ena Small [facility] ASSIGNMENT OF BENEFITS 2023-02-28 12:47:02 Docto r Unassigned, [place] [facility], transvaginal 2022-11-16 00:00:00 [facility] REFERRAL- REQUEST/RESPONSE 2022-10-14 06:01:00 Yony bernard Unassigned, [place] [facility], transvaginal 2022-09-12 00:00:00 [facility] POCT TEST 2022-07-07 20:02:00 Meet Hicks [facility] Salpingectomy, Laparoscopic (Surg) [facility] Plan of Care Planned Activity Planned Date Details Comments Source Diagnostic Test Pending 2024-02-15 00:00:00 urinalysis, dipstick [code = urinalysis, dipstick] [facility] Diagnostic Test Pending 2024-02-15 00:00:00 wet mount, vaginal [code = wet mount, vaginal] [facility] Instructions [facility] Encounters Start Date/Time End Date/Time Encounter Type Admission Type Attending Clinicians Care Facility Care Department Encounter ID Source 2022-10-12 10:36:13 Outpatient [facility] [id number] [facility] 2025-03-13 14:00:00 2025-03-13 14:00:00 Outpatient R [facility] [id number] [facility] 2025-02-16 16:00:00 2025-02-16 16:00:00 Outpatient R ALTAGRACIA WHITLEY VIEN [facility] [id number] [facility] 2025-01-30 00:00:00 2025-01-30 10:33:27 Telephone Altagracia Whitley [facility] 1.2.840.114 350.1.13.10 4.2.7.2.686 [id number] 134 [id number] [facility] 2025-01-30 00:00:00 2025-01-30 08:40:21 Telephone Altagracia Whitley [facility] 1.2840.114 350.1.13.10 4.2.7.2.686 [id number] [facility] 2025-01-29 18:20:00 2025-01-29 18:20:00 Outpatient R [facility] [id number] [facility] 2025-01-20 00:00:00 2025-01-21 02:04:41 Orders Only Doctor Unassigned, [place] Doctor Unassigned, [place] [facility] 1.2840.114 350.1.13.10 4.2.7.2.686 [id number] [facility] 2025-01-15 00:00:00 2025-01-17 02:04:33 Orders Only Doctor Unassigned, [place] Doctor Unassigned, [place] [facility] 1.2840.114 350.1.13.10 4.2.7.2.686 [id number] [facility] 2025-01-16 12:45:00 2025-01-16 14:03:09 Outpatient R JAD PADRON [facility] [id number] [facility] 2025-01-16 12:45:00 2025-01-16 14:03:09 Routine Visit Jad Padron [facility] 1.2.840.114 350.1.13.10 4.2.7.2.686 [id number] [facility] 2025-01-16 08:45:00 2025-01-16 08:45:00 Outpatient R JAD PADRON [facility] [id number] [facility] 2025-01-13 00:00:00 2025-01-13 13:28:40 Telephone Altagracia Whitley [facility] 1..840.114 350.1.13.10 4.2.7.2.686 [id number] [facility] 2025-01-05 08:45:00 2025-01-05 08:45:00 Outpatient R ALTAGRACIA WHITLEY [facility] [id number] [facility] 2025-01-01 08:15:00 2025-01-01 08:15:00 Outpatient R [facility] [id number] [facility] 2024-12-19 00:00:00 2024-12-19 16:45:15 Telephone Altagracia Whitley [facility] 1..840.114 350.1.13.10 4.2.7.2.686 [id number] 134 [id number] [facility] 2024-12-19 00:00:00 2024-12-19 14:07:19 Telephone Altagracia Whitley [facility] 1.2.840.114 350.1.13.10 4.2.7.2.686 [id number] [facility] 2024-12-18 11:15:00 2024-12-18 12:34:43 Outpatient R ALTAGRACIA WHITLEY VIEN [facility] [id number] [facility] 2024-12-18 11:15:00 2024-12-18 12:34:43 Landscaping Specialist Visit 2, Adc Lab Altagracia Whitley 2, [facility] 1.2.840.114 350.1.13.10 4.2.7.2.686 [id number] [facility] 2024-12-18 10:00:00 2024-12-18 10:54:04 Initial Visit Altagracia Whitley [facility] 1.2.840.114 350.1.13.10 4.2.7.2.686 [id number] [facility] 2024-12-09 07:30:00 2024-12-09 07:30:00 Outpatient R STEPHANIE HICKS [facility] [id number] [facility] 2024-12-05 18:26:00 2024-12-05 18:28:00 Emergency X MARCUS MCKEON JOSEPH [facility] ERT [id number] [facility] 2024-12-05 18:26:00 2024-12-05 18:28:00 Emergency Marcus Mckeon [facility] 1.2.840.114 350.1.13.10 4.2.7.2.686 [id number] [facility] 2024-12-04 12:15:00 2024-12-04 12:15:00 Outpatient R ENA SMALL [facility] [id number] [facility] 2024-12-02 07:30:00 2024-12-02 07:30:00 Outpatient R [facility] [id number] [facility] 2024-12-02 07:00:00 2024-12-02 07:00:00 Outpatient R [facility] [id number] [facility] 2024-11-19 00:00:00 2024-11-19 13:57:55 Case Management RuslanShelby [facility] SILO ERECTOR [facility] 1.0.114 350.1.13.10 4.2.7.2.686 [id number] [facility] 2024-11-18 13:00:00 2024-11-18 14:02:40 Outpatient R RUSLAN SHELBY [facility] [id number] [facility] 2024-11-18 13:00:00 2024-11-18 14:02:40 Office Visit Ruslan Shelby [facility] SILO ERECTOR [facility] 1..114 350.1.13.10 4.2.7.2.686 [id number] [facility] 2024-09-15 00:00:00 2024-09-15 09:07:09 Refill Akinsijess Stephanie C [facility] ..114 350.1.13.10 4.2.7.2.686 [id number] 107 [id number] [facility] 2024-09-15 00:00:00 2024-09-15 09:04:53 Refill Akinbeck, Stephanie C [facility] SILO ERECTOR [facility] ..114 350.1.13.10 4.2.7.2.686 [id number] [facility] 2024-09-14 00:00:00 2024-09-15 07:57:34 Refill Akinbeck, Stephanie C [facility] SILO ERECTOR [facility] ..114 350.1.13.10 4.2.7.2.686 [id number] 107 [id number] [facility] 2024-09-02 09:45:00 2024-09-02 09:45:00 Outpatient R STEPHANIE HICKS [facility] [id number] [facility] 2024-05-16 00:00:00 2024-05-16 15:58:25 Telephone Ena Small [facility] SILO ERECTOR [facility] 1..840.114 350.1.13.10 4.2.7.2.686 [id number] 107 [id number] [facility] 2024-05-15 00:00:00 2024-05-15 07:53:35 Case Management Ena Small [facility] SILO ERECTOR [facility] 1..840.114 350.1.13.10 4.2.7.2.686 [id number] [facility] 2024-05-13 12:45:00 2024-05-13 13:28:19 Outpatient R STEPHANIE HICKS [facility] [id number] [facility] 2024-05-13 12:45:00 2024-05-13 13:00:00 Office Visit Stephanie Hicks [facility] SILO ERECTOR [facility] 1..840.114 350.1.13.10 4.2.7.2.686 [id number] [facility] 2024-04-10 15:15:00 2024-04-10 15:15:00 Outpatient R HSELBY MERCER [facility] [id number] [facility] 2024-04-08 21:43:00 2024-04-09 01:18:00 Emergency EM Flor Rouse [facility] [id number] [facility] 2024-02-15 00:00:00 2024-02-15 00:00:00 Elise Hernandez MD: [address], [address], [place] [address] , Ph. [phone] [facility] [id number] [facility] 2024-02-01 14:23:00 2024-02-01 14:23:00 Outpatient CORBY HERNANDEZELISE [facility] [id number] [facility] 2024-02-01 00:00:00 2024-02-01 00:00:00 Elise Hernandez MD: [address], [address], [place] [address] , Ph. [phone] [facility] - OBGYN [id number] [facility] 2024-01-31 15:00:00 2024-01-31 15:00:00 Outpatient CORBY CRUMELISE Horne [facility] [id number] [facility] 2024-01-31 00:00:00 2024-01-31 00:00:00 Elise Hernandez MD: [address], [address], [place] [address] , Ph. [phone] [facility] - OBGYN [id number] [facility] 2024-01-29 00:00:00 2024-01-29 00:00:00 Outpatient MarioYessi [facility] [id number] [facility] 2024-01-25 14:19:00 2024-01-25 14:19:00 Outpatient CORBY JEANNE TAYLORGHAN [facility] [id number] [facility] 2024-01-23 09:29:00 2024-01-23 09:29:00 Outpatient CORBY JEANNE TAYLORGHAN [facility] [id number] [facility] 2024-01-23 00:00:00 2024-01-23 00:00:00 BISHOP Gray-CASTILLO: [address], [address], [place] [address] , Ph. [phone] White_M [facility] [id number] [facility] 2024-01-22 08:15:00 2024-01-22 08:15:00 Outpatient R ENA SMALL [facility] [id number] [facility] 2024-01-16 00:00:00 2024-01-16 00:00:00 Outpatient White_M [facility] [id number] [facility] 2024-01-11 14:00:00 2024-01-11 14:00:00 Outpatient R UNKNOWN, ATTENDING [facility] [id number] [facility] 2024-01-11 11:00:00 2024-01-11 11:20:14 Outpatient RADHA DYE [facility] [id number] [facility] 2024-01-11 11:00:00 2024-01-11 11:20:14 Urgent Care Radha James, Attending [facility] 1.840.114 350.1.13.10 4.2.7.2.686 [id number] [facility] 2023-10-24 13:00:00 2023-10-24 13:27:23 Outpatient RADHA DYE [facility] [id number] [facility] 2023-10-24 13:00:00 2023-10-24 13:27:23 Urgent Care Radha James Unknown, Attending [facility] 1.840.114 350.1.13.10 4.2.7.2.686 [id number] [facility] 2023-10-24 00:00:00 2023-10-24 00:00:00 Orders Only Doctor Unassigned, [place] [facility] 1.840.114 350.1.13.10 4.2.7.2.686 [id number] [facility] 2023-04-23 13:15:00 2023-04-23 13:15:00 Outpatient R STEPHANIE HICKS [facility] [id number] [facility] 2023-04-02 14:30:00 2023-04-02 14:30:00 Outpatient R IVY MONTEJO [facility] [id number] [facility] 2023-03-31 00:00:00 2023-03-31 00:00:00 Patient Secure Msg Ena Small [facility] SILO ERECTOR [facility] 1.2.840.114 350.1.13.10 4.2.7.2.686 [id number] [facility] 2023-03-02 00:00:00 2023-03-02 00:00:00 Case Management Ena Small [facility] SILO ERECTOR [facility] 1.2.840.114 350.1.13.10 4.2.7.2.686 [id number] 107 [id number] [facility] 2023-03-02 00:00:00 2023-03-02 00:00:00 Telephone Stephanie Hicks [facility] 1.2.840.114 350.1.13.10 4.2.7.2.686 [id number] 107 [id number] [facility] 2023-03-02 00:00:00 2023-03-02 00:00:00 Patient Secure g Ena Small [facility] SILO ERECTOR [facility] CHILD [facility] 1.2.840.114 350.1.13.10 4.2.7.2.686 [id number] 107 [id number] [facility] 2023-02-28 07:45:00 2023-02-28 08:57:53 Outpatient R ENA SMALL [facility] [id number] [facility] 2023-02-28 07:45:00 2023-02-28 08:57:53 Office Visit Ena Small [facility] SILO ERECTOR [facility] 1..840.114 350.1.13.10 4.2.7.2.686 [id number] [facility] 2023-02-28 00:00:00 2023-02-28 00:00:00 Orders Only Doctor Unassigned, [place] [facility] 1..840.114 350.1.13.10 4.2.7.2.686 [id number] [facility] 2023-01-30 14:45:00 2023-01-30 14:45:00 Outpatient R ENA SMALL [facility] [id number] [facility] 2022-12-19 14:30:00 2022-12-19 14:30:00 Outpatient VELIA BAINS [facility] [id number] [facility] 2022-11-16 00:00:00 2022-11-16 00:00:00 Outpatient Jose Raul FONTANEZ [facility] [id number] [facility] 2022-11-16 00:00:00 2022-11-16 00:00:00 BISHOP Gray-BC: [address] [address] , Ph. [phone] [facility] - [facility]YN [id number] [facility] 2022-11-02 15:26:00 2022-11-02 15:26:00 Outpatient ERICH CHARLES [facility] [id number] [facility] 2022-11-02 00:00:00 2022-11-02 00:00:00 BISHOP Gray-BC: [address] [facility] [address], [place] [address] , Ph. [phone] [facility] [place] - OBGYN [id number] [facility] 2022-10-14 00:00:00 2022-10-14 00:00:00 Orders Only Doctor Unassigned, [place] [facility] 1.2.840.114 350.1.13.10 4.2.7.2.686 [id number] [facility] 2022-10-12 00:00:00 2022-10-12 00:00:00 Outpatient White_M MMG [facility] [id number] [facility] 2022-10-12 00:00:00 2022-10-12 00:00:00 Outpatient White_M MM[facility] [id number] [facility] 2022-10-12 00:00:00 2022-10-12 00:00:00 BISHOP Gray-BC: [address], [place] [address] , Ph. [phone] [facility] [place] - OBGYN [id number] [facility] 2022-10-06 09:00:00 2022-10-06 09:00:00 Outpatient STEPHANIE BAKER [facility] [id number] [facility] 2022-09-12 15:04:00 2022-09-12 15:04:00 Outpatient ERICH CHARLES [facility] [id number] [facility] 2022-09-12 00:00:00 2022-09-12 00:00:00 Outpatient White_M MMG [facility] [id number] [facility] 2022-09-12 00:00:00 2022-09-12 00:00:00 BISHOP Gray-BC: [address] [facility] [address], [place] [address] , Ph. [phone] [facility] [id number] [facility] 2022-07-07 14:45:00 2022-07-07 15:27:14 Office Visit Jerryyasmeenjess Stephanie Henderson [facility] SILO ERECTOR [facility] 1.2.840.114 350.1.13.10 4.2.7.2.686 [id number] [facility] 2022-07-07 14:45:00 2022-07-07 15:27:14 Outpatient R STEPHANIE HICKS [facility] [id number] [facility] 2022-07-07 14:45:00 2022-07-07 14:45:00 Outpatient R STEPHANIE HICKS [facility] [id number] [facility] 2022-07-07 08:15:00 2022-07-07 08:15:00 Outpatient R RICHARD AMAYA [facility] [id number] [facility] 2022-06-27 00:00:00 2022-06-27 00:00:00 Patient Secure Msg Stephanie Hicks [facility] SILO ERECTOR [facility] & CHILD [facility] 1.2.840.114 350.1.13.10 4.2.7.2.686 [id number] [facility] 2022-06-21 10:30:00 2022-06-21 11:49:35 Office Visit Stephanie Hicks [facility] SILO ERECTOR [facility] 1.2.840.114 350.1.13.10 4.2.7.2.686 [id number] [facility] 2022-06-21 10:30:00 2022-06-21 11:49:35 Outpatient R STEPHANIE HICKS [facility] [id number] [facility] 2022-06-21 10:30:00 2022-06-21 10:30:00 Outpatient R STEPHANIE HICKS [facility] [id number] [facility] 2022-06-19 10:15:00 2022-06-19 10:15:00 Outpatient R STEPHANIE HICKS [facility] [id number] [facility] 2022-06-16 14:00:00 2022-06-16 14:00:00 Outpatient R STEPHANIE HICKS [facility] [id number] [facility] 2022-06-16 00:00:00 2022-06-16 00:00:00 Telephone Stephanie Hicks [facility] SILO ERECTOR [facility] 1.2840.114 350.1.13.10 4.2.7.2.686 [id number] 107 [id number] [facility] 2022-04-25 08:15:00 2022-04-25 08:15:00 Outpatient R STEPHANIE HICKS [facility] [id number] [facility] 2022-04-18 14:15:00 2022-04-18 14:15:00 Outpatient R STEPHANIE HICKS [facility] [id number] [facility] 2022-04-14 00:00:00 2022-04-14 00:00:00 Telephone Stephanie Hicks [facility] 1.840.114 350.1.13.10 4.2.7.2.686 [id number] [facility] 2022-04-14 00:00:00 2022-04-14 00:00:00 Patient Secure Msg Stephanie Hicks [facility] 1.2.840.114 350.1.13.10 4.2.7.2.686 [id number] [facility] 2022-04-04 00:00:00 2022-04-04 00:00:00 Patient Secure Msg Stephanie Hicks [facility] 1.2.840.114 350.1.13.10 4.2.7.2.686 [id number] [facility] 2022-04-03 00:00:00 2022-04-03 00:00:00 Patient Secure Msg Stephanie Hicks Beatriz [facility] 1..114 350.1.13.10 4.2.7.2.686 [id number] 107 [id number] [facility] 2022-04-03 00:00:00 2022-04-03 00:00:00 Telephone Stephanie Hicks Beatriz [facility] 1..114 350.1.13.10 4.2.7.2.686 [id number] [facility] 2022-03-31 16:00:00 2022-03-31 16:29:52 Outpatient R STEPHANIE HICKS [facility] [id number] [facility] 2022-03-31 16:00:00 2022-03-31 16:29:52 Office Visit Stephanie Hicks Beatriz [facility] 1..114 350.1.13.10 4.2.7.2.686 [id number] 107 [id number] [facility] 2022-03-31 00:00:00 2022-03-31 00:00:00 Orders Only Doctor Unassigned, [place] [facility] 1..114 350.1.13.10 4.2.7.2.686 [id number] [facility] 2022-01-30 13:00:00 2022-01-30 13:00:00 Outpatient R KARLA BURRELL [facility] [id number] [facility] 2021-11-12 00:00:00 2021-11-12 00:00:00 Patient Secure Msg Doctor Unassigned, [place] [facility] 1..114 350.1.13.10 4.2.7.2.686 [id number] [facility] 2021-11-11 14:00:00 2021-11-11 14:00:00 Outpatient R STEPHANIE HICKS [facility] [id number] [facility] 2021-11-11 14:00:00 2021-11-11 14:00:00 Outpatient R STEPHANIE HICKS [facility] [id number] [facility] 2021-10-28 13:45:00 2021-10-28 14:59:43 Outpatient R STEPHANIE HICKS [facility] [id number] [facility] 2021-10-28 13:45:00 2021-10-28 14:59:43 Office Visit Stephanie Hicks [facility] [employer] [facility] 1..840.114 350.1.13.10 4.2.7.2.686 [id number] 107 [id number] [facility] 2021-05-25 00:00:00 2021-05-25 00:00:00 Telephone Stephanie Hicks [facility] SILO ERECTOR [facility] CHILD [facility] ..840.114 350.1.13.10 4.2.7.2.686 [id number] 107 [id number] [facility] 2021-05-24 15:15:00 2021-05-24 15:15:00 Outpatient R STEPHANIE HICKS [facility] [id number] [facility] 2021-05-11 16:00:00 2021-05-11 16:00:00 Outpatient R STEPHANIE HICKS [facility] [id number] [facility] 2021-04-26 00:00:00 2021-04-26 00:00:00 Telephone Stephanie Hicks [facility] SILO [employer] [facility] ..840.114 350.1.13.10 4.2.7.2.686 [id number] 107 [id number] [facility] 2021-04-14 13:45:00 2021-04-14 13:45:00 Outpatient P [facility] [id number] [facility] 2021-04-05 15:45:00 2021-04-05 15:45:00 Outpatient R STEPHANIE HICKS [facility] [id number] [facility] 2021-04-04 00:00:00 2021-04-04 00:00:00 Patient Secure Msg Doctor Unassigned, [place] [facility] [employer] [facility] 1.0.114 350.1.13.10 4.2.7.2.686 [id number] 107 [id number] [facility] 2021-03-30 00:00:00 2021-03-30 00:00:00 Patient Secure Msg Doctor Unassigned, [place] [facility] 1.840.114 350.1.13.10 4.2.7.2.686 [id number] [facility] 2021-03-25 00:00:00 2021-03-25 00:00:00 Telephone Stephanie Hicks [facility] SILO E[employer] [facility]ILD [facility] 1.0.114 350.1.13.10 4.2.7.2.686 [id number] 107 [id number] 2021-03-25 00:00:00 2021-03-25 00:00:00 Telephone Stephanie Hicks [facility] SILO [employer] [facility] 1.840.114 350.1.13.10 4.2.7.2.686 [id number] 107 [id number] [facility] 2021-03-24 10:30:23 2021-03-24 10:47:41 Landscaping Specialist Visit Lab, Kaushik-Rmp Ida Varela [facility] SIL[employer] [facility] 1.0.114 350.1.13.10 4.2.7.2.686 [id number] 107 [id number] [facility] 2021-03-24 10:30:00 2021-03-24 10:30:00 Outpatient R [facility] [id number] [facility] 2021-03-24 00:00:00 2021-03-24 00:00:00 Patient Secure Msg Doctor Unassigned, [place] [facility] 1..114 350.1.13.10 4.2.7.2.686 [id number] [facility] 2021-03-24 00:00:00 2021-03-24 00:00:00 Telephone Stephanie Hicks [facility] SILO [employer] [facility] 1.84.114 350.1.13.10 4.2.7.2.686 [id number] 107 [id number] [facility] 2021-03-23 00:00:00 2021-03-23 00:00:00 Patient Secure Msg Richard Amaya R [facility] SILO [employer] [facility] 1..114 350.1.13.10 4.2.7.2.686 [id number] 107 [id number] [facility] 2021-03-22 15:10:35 2021-03-22 15:25:35 Initial Visit Stephanie Hicks [facility] S[employer] [facility] 1.2.114 350.1.13.10 4.2.7.2.686 [id number] 107 [id number] [facility] 2021-03-22 15:00:00 2021-03-22 15:00:00 Outpatient R STEPHANIE HICKS [facility] [id number] [facility] 2021-03-22 00:00:00 2021-03-22 00:00:00 Orders Only Doctor Unassigned, [place] [facility] 1.114 350.1.13.10 4.2.7.2.686 [id number] [facility] 2021-02-23 13:08:12 2021-02-23 13:35:01 Office Visit Richard Amaya [facility] SILO ERECTOR [facility] 1.2840.114 350.1.13.10 4.2.7.2.686 [id number] 107 [id number] [facility] 2021-02-23 13:00:00 2021-02-23 13:00:00 [facility] [id number] [facility] 2021-02-16 09:30:00 2021-02-16 09:30:00 Outpatient R [facility] [id number] [facility] 2021-02-16 09:30:00 2021-02-16 09:30:00 Outpatient R JACY AMAYAROSA [facility] [id number] [facility] 2021-02-14 00:00:00 2021-02-14 00:00:00 Patient Secure Msg Doctor Unassigned, [place] [facility] 1..114 350.1.13.10 4.2.7.2.686 [id number] 107 [id number] [facility] 2021-02-14 00:00:00 2021-02-14 00:00:00 Patient Secure Msg Doctor Unassigned, [place] [facility] 1.20.114 350.1.13.10 4.2.7.2.686 [id number] [facility] 2021-02-02 10:05:24 2021-02-02 11:11:24 Routine Visit Richard Amaya [facility] SILO ERECTOR [facility] 1.2840.114 350.1.13.10 4.2.7.2.686 [id number] 107 [id number] [facility] 2021-02-02 10:00:00 2021-02-02 10:00:00 Outpatient JACY GRAVESROSA [facility] [id number] [facility] 2021-02-02 00:00:00 2021-02-02 00:00:00 Orders Only Doctor Unassigned, [place] [facility] 1.840.114 350.1.13.10 4.2.7.2.686 [id number] [facility] 2021-02-01 14:45:00 2021-02-01 14:45:00 Outpatient JACY GRAVESROSA [facility] [id number] [facility] 2021-01-31 13:45:00 2021-01-31 13:45:00 [facility] [id number] [facility] 2021-01-11 00:00:00 2021-01-11 00:00:00 Patient Outreach Pardeep Amaro [facility] 1.0.114 350.1.13.10 4.2.7.2.686 [id number] [facility] 2021-01-10 14:26:11 2021-01-10 15:14:43 Initial Visit Richard Amaya [facility] SILO ERECTOR [facility] 1.0.114 350.1.13.10 4.2.7.2.686 [id number] 107 [id number] [facility] 2021-01-10 14:00:00 2021-01-10 14:00:00 Outpatient Kinsey AMAYA RICHARD [facility] [id number] [facility] 2021-01-10 00:00:00 2021-01-10 00:00:00 Orders Only Doctor Unassigned, [place] [facility] 1.840.114 350.1.13.10 4.2.7.2.686 [id number] [facility] 2021-01-03 14:00:00 2021-01-03 14:00:00 Outpatient R [facility] [id number] [facility] 2021-01-03 12:45:00 2021-01-03 12:45:00 Outpatient R AMAAYRICHARD [facility] [id number] [facility] 2020-12-28 13:15:00 2020-12-28 13:15:00 Outpatient R AMAYARICHARD [facility] [id number] [facility] 2020-11-29 00:00:00 2020-11-29 00:00:00 Telephone Richard Amaya [facility] SILO ERECTOR [facility] 1..840.114 350.1.13.10 4.2.7.2.686 [id number] 107 [id number] [facility] 2020-11-24 14:45:48 2020-11-24 15:26:28 Office Visit Richard Amaya [facility] SILO ERECTOR [facility] 1..840.114 350.1.13.10 4.2.7.2.686 [id number] 107 [id number] [facility] 2020-11-24 14:45:00 2020-11-24 14:45:00 Outpatient R RICHARD AMAYA [facility] [id number] [facility] 2020-11-24 00:00:00 2020-11-24 00:00:00 Orders Only Doctor Unassigned, [place] [facility] 1..840.114 350.1.13.10 4.2.7.2.686 [id number] [facility] 2020-09-14 13:30:00 2020-09-14 13:30:00 Outpatient R RICHARD AMAYA [facility] [id number] [facility] 2020-09-13 00:00:00 2020-09-13 00:00:00 Telephone Richard Amaya R [facility] SILO ERECTOR [facility] .2.840.114 350.1.13.10 4.2.7.2.686 [id number] 107 [id number] [facility] 2020-09-09 15:00:00 2020-09-09 15:00:00 Outpatient R RICHARD AMAYA [facility] [id number] [facility] 2020-09-01 12:45:00 2020-09-01 12:45:00 Outpatient R JACY AMAYAROSA [facility] [id number] [facility] 2020-09-01 12:45:00 2020-09-01 12:45:00 Outpatient R AMAYA, ROSROSA [facility] [id number] [facility] 2020-07-29 09:45:00 2020-07-29 09:45:00 Outpatient R BUNNY HICKSILOLA [facility] [id number] [facility] 2020-07-29 09:45:00 2020-07-29 09:45:00 Outpatient R JERRYYASMEENJESS STEPHANIE [facility] [id number] [facility] 2020-06-08 10:45:00 2020-06-08 10:45:00 Outpatient R JERRYYASMEENJESS STEPHANIE [facility] [id number] [facility] 2020-06-08 10:45:00 2020-06-08 10:45:00 Outpatient R KAY STEPHANIE [facility] [id number] [facility] 2020-04-13 11:00:57 2020-04-13 11:44:15 Office Visit AmayaDarian crowelkin Euceda [facility] SILO ERECTOR [facility] & [facility] 1.2.840.114 350.1.13.10 4.2.7.2.686 [id number] 107 [id number] [facility] 2020-04-13 11:00:00 2020-04-13 11:00:00 Outpatient R AMAYARICHARD [facility] [id number] [facility] 2020-04-13 09:45:00 2020-04-13 09:45:00 Outpatient IDA KNOWLES [facility] [id number] [facility] 2020-03-09 10:30:00 2020-03-09 10:30:00 Outpatient RICHARD GRAVES [facility] [id number] [facility] 2020-03-04 00:00:00 2020-03-04 00:00:00 Telephone Ida Varela [facility] SILO ERECTOR [facility] 1..840.114 350.1.13.10 4.2.7.2.686 [id number] 107 [id number] [facility] 2020-01-12 15:30:00 2020-01-12 15:30:00 Outpatient R IDA VARELA [facility] [id number] [facility] 2020-01-07 00:00:00 2020-01-07 00:00:00 Patient Secure g Doctor Unassigned, [place] [facility] SILO E[employer]OR [facility] 1..840.114 350.1.13.10 4.2.7.2.686 [id number] 107 [id number] [facility] 2020-01-05 13:19:07 2020-01-05 14:07:46 Office Visit Stephanie Hicks [facility] SILO ERECTOR [facility] 1..840.114 350.1.13.10 4.2.7.2.686 [id number] 107 [id number] [facility] 2020-01-05 13:15:00 2020-01-05 13:15:00 Outpatient R STEPHANIE HICKS [facility] [id number] [facility] 2019-12-12 08:00:00 2019-12-12 08:00:00 Outpatient RICHARD GRAVES [facility] [id number] [facility] 2019-12-11 00:00:00 2019-12-11 00:00:00 Patient Secure Msg Ida Varela [facility] SILO ERECTOR [facility] & [facility] 1.2.840.114 350.1.13.10 4.2.7.2.686 [id number] 107 [id number] [facility] 2019-12-08 11:15:24 2019-12-08 11:43:05 Office Visit Richard Amaya [facility] SILO ERECTOR [facility] 1.2.840.114 350.1.13.10 4.2.7.2.686 [id number] 107 [id number] [facility] 2019-12-08 00:00:00 2019-12-08 00:00:00 Orders Only Doctor Unassigned, [place] [facility] 1.2.840.114 350.1.13.10 4.2.7.2.686 [id number] [facility] 2019-11-28 00:00:00 2019-11-28 00:00:00 Telephone Ida Varela [facility] SILO ERECTOR [facility] 1.2.840.114 350.1.13.10 4.2.7.2.686 [id number] 107 [id number] [facility] 2019-11-25 08:40:20 2019-11-25 09:30:23 Office Visit Ida Varela [facility] SILO ERECTOR [facility] 1.2.840.114 350.1.13.10 4.2.7.2.686 [id number] 107 [id number] [facility] 2019-11-25 00:00:00 2019-11-25 00:00:00 Telephone Ida Varela [facility] SILO ERECTOR [facility] 1.2.840.114 350.1.13.10 4.2.7.2.686 [id number] 107 [id number] [facility] 2019-11-05 00:00:00 2019-11-05 00:00:00 Telephone Stephanie Hicks [facility] SILO ERECTOR [facility] 1.2840.114 350.1.13.10 4.2.7.2.686 [id number] 107 [id number] [facility] 2019-06-17 12:53:35 2019-06-17 13:48:17 Office Visit Ida Varela Simon [facility] SILO ERECTOR [facility]ERNAL & [facility] 1.2840.114 350.1.13.10 4.2.7.2.686 [id number] 107 [id number] [facility] 2019-06-17 00:00:00 2019-06-17 00:00:00 Orders Only Doctor Unassigned, [place] [facility] 1.840.114 350.1.13.10 4.2.7.2.686 [id number] [facility] Results Test Description Test Time Test Comments Results Resul t Comments Source SCANNED LAB RESULTS 2025-01-20 16:12:11 [facility]dered by an unspecified provider. [facility] [id number] 17:40:23[facility] by an unspecified provider.[facility] 16:27:00* Test Item Value Reference Range Interpretation Comme nts POCT PREG (test code = 1605) Positive On board controls acceptable with C Line (test code = 3574) Yes POCT PREG LOT # (test code = 3575) POCT PREG TEST DATE ( test code = 3576) [facility] w/o Specific [id number] 16:26:00* Test Item Value Reference Range Interpretation [...] = 3257) na Negative - Negati ve [facility] [id number] 19:52:00* Test Item Value Reference Range Interpretation Comme nts POCT PREG (test code = 1605) Negative On board controls acceptable with C Line (test code = 3574) Yes POCT PREG LOT # (test code = 3575) POCT PREG TEST DATE ( test code = 3576) [facility] [id number] 23:45:00* Test Item Value Reference Range Interpretation [...] milliInternationalunits/mL SHOULD BE CONSIDERED NEGATIVE - DUP AB/PEL/SC/[id number] 23:00:00 [facility]ESS[facility]ARCIASLYN : 1995 Sex: FPatient Name: LACEY GARCIAN Unit No: [id number] EXAMS: CPT CODE: [id number] DUP AB/PEL/SC/LTD 53039 EXAM: - US PREG EVAL 1ST TRIMTR, [...] Orig Print D/T: S: 04/08/2024 (2304) [facility] NAME: DEREK GARCIA Radiology Department PHYS: ALISHAAHE.01 - Flor Rouse MD [address] : 1995 AGE: 28 SEX: F [place], [place] [address] LOC: JA PHONE #: [phone] EXAM DATE: 04/08/2024 STATUS: REG ER FAX #: [phone] RAD NO: Page 1 Signed Report Patient Name: DEREK WOLF Unit No: [id number] EXAMS: CPT CODE: [id number] DUP AB/PEL/SC/LTD 06808 (Continued) [facility] NAME: DEREK GARCIA Radiology Department PHYS: KHAHE.01 - Flor Rouse MD [address] : 1995 AGE: 28 SEX: F [place] [address] LOC: JA PHONE #: [phone] EXAM DATE: 04/08/2024 STATUS: REG ER FAX #: [phone] RAD NO: Page 2 Signed Report- US PREG UT [id number] 23:00:00 [facility] : 1995 Sex: FPatient Name: DEREK GARCIA Unit No: [id number] EXAMS: CPT CODE: [id number] US PREG UT TRANSVAGINAL [address]109 EXAM: - US PREG EVAL 1ST TRIMTR, [...] CC: Flor Rouse MD Technologist: Luma Watkins [facility] Probe: [id number] Trnscrbd D/ (2299) [id number] Orig Print D/T: S: 04/08/2024 (2303) [facility] NAME: DEREK GARCIA Radiology Department PHYS: Flor Rouse MD [address] : 1995 AGE: 28 SEX: F [place] [address] LOC: Alejandro.ERS PHONE #: [phone] EXAM DATE: 04/08/2024 STATUS: REG ER FAX #: [phone] RAD NO: Page 1 Signed Report Patient Name: TOYIN GARCIALYN Unit No: [id number] EXAMS: CPT CODE: [id number] US PREG UT TRANSVAGINAL 75033 (Continued) [facility] NAME: DEREK GARCIA Radiology Department PHYS: Flor Zamora MD [address] : 1995 AGE: 28 SEX: F [place], [place] [address] LOC: Alejandro.ERS PHONE #: [phone] EXAM DATE: 04/08/2024 STATUS: REG ER FAX #: [phone] RAD NO: Page 2 Signed Report- US PREG EVAL 1ST [id number] 23:00:00[facility] : 1995 Sex: FPatient Name: DEREK GARCIA Unit No: [id number] EXAMS: CPT CODE: [id number] US PREG EVAL 1ST TRIMTR 10077 EXAM: - US PREG EVAL 1ST TRIMTR, [...] Luma Watkins RDMS Probe: Trnscrbd D/ (2300) t.NIGHATR.HMS3 Orig Print D/T: S: 04/08/2024 (2304) [facility] NAME: JULIODEREK Radiology Department PHYS: IMELDABernice Beck Flor Rouse MD [address] : 1995 AGE: 28 SEX: F [place], [place] [address] LOC: Alejandro.ERS PHONE #: [phone] EXAM DATE: 04/08/2024 STATUS: REG ER FAX #: [phone] RAD NO: Page 1 Signed Report Patient Name: DEREK GARCIA Unit No: [id number] EXAMS: CPT CODE: [id number] US PREG EVAL 1ST TRIMTR 06885 (Continued) [facility] NAME: JULIODEREK Radiology Department PHYS: IMELDABernice Beck Flor Rouse MD [address] : 1995 AGE: 28 SEX: F [place] [address] LOC: Alejandro.ERS PHONE #: [phone] EXAM DATE: 04/08/2024 STATUS: REG ER FAX #: [phone] RAD NO: Page 2 Signed ReportMicroscopic observation [Identifier] in Vaginal fluid by Wet zblhqqwchlv8598-89-44 16:35:18* Test Item Value Reference Range Interpretation Comme nts Clue Cells (test code = Clue Cells) negative WBCs (test code = WBCs) positive Trichomonads (test code = Trichomonads) negative Epithelial cells (test code = Epithelial cells) normal RBCs (test code = RBCs) negative [facility] panel - Agatt0002-46-08 14:37:04* Test Item Value Reference Range Interpretation Comme nts Leukocytes (test code = Leukocytes) Negative Nitrite (test code = Nitrite) negative Urobilinogen (test code = Urobilinogen) .2 Protein (test code = Protein) Negative pH (test code = pH) 6.0 Blood (test code = Blood) Non-Hemolyzed: Trace Specific Bruner (test code = Specific Bruner) 1.025 Ketone (test code = Ketone) Negative Bilirubin (test code = Bilirubin) Negative Glucose (test code = Glucose) Negative Appearance (test code = Appearance) Clear Color (test code = Color) Yellow [facility] W Auto Differential panel - [id number] 14:43:00 * Test Item Value Reference Range [...] NRBC# (test code = NRBC#) 0 K/uL [facility] macro (dipstick) panel - [id number] 14:01:32* Test Item Value Reference Range Interpretation Comme nts Leukocytes (test code = Leukocytes) Small Nitrite (test code = Nitrite) negative Urobilinogen (test code = Urobilinogen) .2 Protein (test code = Protein) 30 pH (test code = pH) 5.0 Blood (test code = Blood) Moderate Specific Bruner (test code = Specific Bruner) 1.025 Ketone (test code = Ketone) Large Bilirubin (test code = Bilirubin) Negative Glucose (test code = Glucose) Negative Appearance (test code = Appearance) Clear Color (test code = Color) Yellow [facility] paujznmadzni9592-03-29 17:06:00* Test Item Value Reference Range Interpretation Comme nts HCG quantitative (test code = HCG quantitative) 8750.0 mIU/mL 0-5 H [facility] macro (dipstick) panel - [id number] 14:17:46* Test Item Value Reference Range Interpretation Comme nts Leukocytes (test code = Leukocytes) Small Nitrite (test code = Nitrite) negative Urobilinogen (test code = Urobilinogen) .2 Protein (test code = Protein) Negative pH (test code = pH) 7.0 Blood (test code = Blood) Non-Hemolyzed: Trace Specific Bruner (test code = Specific Bruner) 1.015 Ketone (test code = Ketone) Negative Bilirubin (test code = Bilirubin) Negative Glucose (test code = Glucose) Negative Appearance (test code = Appearance) Clear Color (test code = Color) Yellow [facility] pooqwncksmip9762-13-09 18:09:00* Test Item Value Reference Range Interpretation Comme nts HCG quantitative (test code = HCG quantitative) 1146.0 mIU/mL 0-5 H [facility] [id number] 11:06:00* Test Item Value Reference Range Interpretation Comme [facility] H[facility] quantitative (test code = HCG quantitative) 466.6 mIU/mL 0-5 H [facility] HospitalChoriogonadotropin.beta subunit [Units/volume] in Serum or [id number] 11:06:00* Test Item Value Reference Range Interpretation Comme nts HCG quantitative (test code = HCG quantitative) 466.6 mIU/mL 0-5 H [facility] Hospitalpregnancy test, [id number] 09:36:27* Test Item Value Reference Range Interpretation Comme [facility] Test (test code = Test) positive [facility] HospitalUrinal[facility] macro (dipstick) panel - [id number] 08:33:52* Test Item Value Reference Range Interpretation Comme nts Leukocytes (test code = Leukocytes) Negative Nitrite (test code = Nitrite) negative Urobilinogen (test code = Urobilinogen) .2 Protein (test code = Protein) Negative pH (test code = pH) 6.0 Blood (test code = Blood) Non-Hemolyzed: Trace Specific Bruner (test code = Specific Bruner) 1.025 Ketone (test code = Ketone) Negative Bilirubin (test code = Bilirubin) Negative Glucose (test code = Glucose) Negative Appearance (test code = Appearance) Clear Color (test code = Color) Yellow [facility] [id number] 16:22:00* Test Item Value Reference Range Interpretation Comme [facility] POCT PREG (test code = 1605) Negative On board controls acceptable with C Line (test code = 3574) Yes POCT PREG LOT # (test code = 3575) POCT PREG TEST DATE ( test code = 3576) Lab Interpretation (test cod e = 83748-2) Normal [facility] Urinalysis W Specific [id number] 16:19:00* Test Item Value Reference Range Interpretation [...] Cloudy Lab Interpretation (test cod e = 53003-6) Abnormal [facility] [id number] 19:24:00* Test Item Value Reference Range Interpretation Comme nts POCT PREG (test code = 1605) Negative On board controls acceptable with C Line (test code = 3574) Yes POCT PREG LOT # (test code = 3575) POCT PREG TEST DATE (test code = 3576) CECIL (test code = CECIL) accurate developme nt and interpretation of all internal controls Lab Interpretation (test code = 08771-6) Normal [facility] [id number] 19:24:00* Test Item Value Reference Range Interpretation Comme nts POCT PREG (test code = 1605) Negative On board controls acceptable with C Line (test code = 3574) Yes POCT PREG LOT # (test code = 3575) POCT PREG TEST DATE (test code = 3576) CECIL (test code = CECIL) accurate developme nt and interpretation of all internal controls Lab Interpretation (test code = 97022-9) Normal [facility] Urinalysis W Specific [id number] 19:20:00* Test Item Value Reference Range Interpretation [...] internal controls Lab Interpretation (test code = 07867-4) [facility] [id number] 19:20:00* Test Item Value Reference Range Interpretation [...] internal controls Lab Interpretation (test code = 40534-7) [id number] 15:05:59* Test Item Value Reference Range Interpretation Comme nts Syphilis IgG/IgM (test code = 96443-8) Non-reactive Non-reactive CECIL (test code = CECIL) Non-reactive - No serologic evidence of T. pallidum infection. Cannot exclude incubating or early syphilis. Submit a second specimen in 2-4 weeks if syphilis is clinically suspected. Equivocal - Further testing to follow. Reactive - Further testing to follow. Lab Interpretation (test code = 92688-1) Normal [facility] ONLY - SYPHILIS [id number] 15:05:59* Test Item Value Reference Range [facility]ation [facility]me [facility] IgG/IgM (test code = 51488-1) Non-reactive Non-reactive CECIL (test code = CECIL) Non-reactive - No serologic evidence of T. pallidum infection. Cannot exclude incubating or early syphilis. Submit a second specimen in 2-4 weeks if syphilis is clinically suspected. Equivocal - Further testing to follow. Reactive - Further testing to follow. Lab Interpretation (test code = 45737-2) Normal [facility] ONLY - SYPHILIS [id number] 15:05:59* Test Item Value Reference Range Interpretation Comme [facility] Syphilis IgG/IgM (test code = 87171-6) Non-reactive Non-reactive CECIL (test code = CECIL) Non-reactive - No serologic evidence of T. pallidum infection. Cannot exclude incubating or early syphilis. Submit a second specimen in 2-4 weeks if syphilis is clinically suspected. Equivocal - Further testing to follow. Reactive - Further testing to follow. Lab Interpretation (test code = 76991-1) Normal [facility] 1/2 AG-AB WITH [id number] 06:58:27* Test Item Value Reference Range Interpretation Comme [facility] HIV Semi-quantitative (test code = 83289-9) 0.12 Negative CECIL (test code = CECIL) Non-reactive for HIV-1 antigen and HIV-1/HIV-2 antibodies. ?No laboratory evidence of HIV infection. ?Repeat in 2-4 weeks if acute HIV infection is suspected. [facility] 1/2 AG-AB WITH [id number] 06:58:27* Test Item Value Reference Range Interpretation Comme [facility] HIV Semi-quantitative (test code = 00034-8) 0.12 Negative CECIL (test code = CECIL) Non-reactive for HIV-1 antigen and HIV-1/HIV-2 antibodies. ?No laboratory evidence of HIV infection. ?Repeat in 2-4 weeks if acute HIV infection is suspected. [facility] 1/2 AG-AB WITH [id number] 06:58:27* Test Item Value Reference Range Interpretation Comme nts HIV Semi-quantitative (test code = 21732-3) 0.12 Negative CECIL (test code = CECIL) Non-reactive for HIV-1 antigen and HIV-1/HIV-2 antibodies. ?No laboratory evidence of HIV infection. ?Repeat in 2-4 weeks if acute HIV infection is suspected. [facility] [id number] 05:29:42* Test Item Value Reference Range Interpretation Comme nts HCV Ab (test code = 53711-8) Negative HCV Semi-Quantitative (test code = 61762-7) 0.01 [facility] [id number] 05:29:42* Test Item Value Reference Range Interpretation Comme nts HCV Ab (test code = 72781-5) Negative HCV Semi-Quantitative (test code = 00642-3) 0.01 [facility] [id number] 05:29:42* Test Item Value Reference Range Interpretation Comme nts HCV Ab (test code = 77193-7) Negative HCV Semi-Quantitative (test code = 06539-3) 0.01 [facility]2023-03-01 05:25:25* Test Item Value Reference Range Interpretation Comme nts HGB A1C (test code = 4548-4) 5.3 % 4.0-5.7 CECIL (test code = CECIL) Reference RangesNormal: <5.7%Prediabetes: 5.7 - 6.4%Diabetes: > 6.5% Lab Interpretation (test code = 77211-8) [facility]2023-03-01 05:25:25* Test Item Value Reference Range Interpretation Comme nts HGB A1C (test code = 4548-4) 5.3 % 4.0-5.7 CECIL (test code = CECIL) Reference RangesNormal: <5.7%Prediabetes: 5.7 - 6.4%Diabetes: > 6.5% Lab Interpretation (test code = 63671-3) [facility]2023-03-01 05:25:25* Test Item Value Reference Range Interpretation Comme nts HGB A1C (test code = 4548-4) 5.3 % 4.0-5.7 CECIL (test code = CECIL) Reference RangesNormal: <5.7%Prediabetes: 5.7 - 6.4%Diabetes: > 6.5% Lab Interpretation (test code = 93062-0) Normal [facility] WITH [id number] 05:04:15* Test Item Value Reference Range Interpretation Comme nts WBC (test code = 6690-2) 9.14 See_Comment [Automated [employer] Interactive[employer] ge] The system which generated this result transmitted reference range: 4.30 - 11.10 10*3/?L. The reference range was not used to interpret this result as normal/abnormal. RBC (test code = 789-8) 4.95 See_Comment [Automated [employer] ge] The system which generated this result [...] 32.5 g/dL 31.6-35.1 RDW-SD (test code = 60728-7) 43.6 fL 39.0-49.9 RDW-CV (test code = 788-0) 12.8 % 12.0-15.5 PLT (test code = 777-3) 326 See_Comment [Automated [employer] ge] The system which generated this result transmitted reference range: 166 - 358 10*3/?L. The reference range was not used to interpret this result as normal/abnormal. MPV (test code = 03347-4) 10.1 fL 9.5-12.9 NRBC/100 WBC (test code = 7185017987) 0.0 See_Comment [Automated Humanco ssage] The system which generated this result transmitted reference range: 0.0 - 10.0 /100 WBCs. The reference range was not used to interpret this result as normal/abnormal. NRBC x10^3 (test code = 6343634577) See_Comment [Automated messa ge] The system which generated this result transmitted reference range: 10*3/?L. The reference range was not used to interpret this result as normal/abnormal. GRAN MAT (NEUT) % (test code = 770-8) 59.5 % IMM GRAN % (test code = 0314819671) 0.10 % LYMPH % (test code = 736-9) 31.2 % MONO % (test code = 5905-5) 5.9 % EOS % (test code = 713-8) 2.8 % BASO % (test code = 706-2) 0.5 % GRAN MAT x10^3(ANC) (test code = 5494241034) 5.43 10*3/uL 1.88-7.09 IMM GRAN x10^3 (test code = 4108827394) 0.00-0.06 LYMPH x10^3 (test code = 731-0) 2.85 10*3/uL 1.32-3.29 MONO x10^3 (test code = 742-7) 0.54 10*3/uL 0.33-0.92 EOS x10^3 (test code = 711-2) 0.26 10*3/uL 0.03-0.39 BASO x10^3 (test code = 704-7) 0.05 10*3/uL 0.01-0.07 Lab Interpretation (test code = 86192-4) Abnormal [facility] WITH [id number] 05:04:15* Test Item Value Reference Range Interpretation [...] 32.5 g/dL 31.6-35.1 RDW-SD (test code = 71483-7) 43.6 fL 39.0-49.9 RDW-CV (test code = 788-0) 12.8 % 12.0-15.5 PLT (test code = 777-3) 326 See_Comment [Automated messa ge] The system which generated this result transmitted reference range: 166 - 358 10*3/?L. The reference range was not used to interpret this result as normal/abnormal. MPV (test code = 76772-0) 10.1 fL 9.5-12.9 NRBC/100 WBC (test code = 3748814951) 0.0 See_Comment [Automated Humanco ssage] The system which generated this result transmitted reference range: 0.0 - 10.0 /100 WBCs. The reference range was not used to interpret this result as normal/abnormal. NRBC x10^3 (test code = 3667735255) See_Comment [Automated [employer] Interactive[employer] ge] The system which generated this result transmitted reference range: 10*3/?L. The reference range was not used to interpret this result as normal/abnormal. GRAN MAT (NEUT) % (test code = 770-8) 59.5 % IMM GRAN % (test code = 9302594297) 0.10 % LYMPH % (test code = 736-9) 31.2 % MONO % (test code = 5905-5) 5.9 % EOS % (test code = 713-8) 2.8 % BASO % (test code = 706-2) 0.5 % GRAN MAT x10^3(ANC) (test code = 8605044863) 5.43 10*3/uL 1.88-7.09 IMM GRAN x10^3 (test code = 2307167035) 0.00-0.06 LYMPH x10^3 (test code = 731-0) 2.85 10*3/uL 1.32-3.29 MONO x10^3 (test code = 742-7) 0.54 10*3/uL 0.33-0.92 EOS x10^3 (test code = 711-2) 0.26 10*3/uL 0.03-0.39 BASO x10^3 (test code = 704-7) 0.05 10*3/uL 0.01-0.07 Lab Interpretation (test code = 88106-8) Abnormal [facility] WITH [id number] 05:04:15* Test Item Value Reference Range Interpretation Comme nts WBC (test code = 6690-2) 9.14 See_Comment [Automated [employer] ge] The system which generated this result [...] 32.5 g/dL 31.6-35.1 RDW-SD (test code = 80521-2) 43.6 fL 39.0-49.9 RDW-CV (test code = 788-0) 12.8 % 12.0-15.5 PLT (test code = 777-3) 326 See_Comment [Automated messa ge] The system which generated this result transmitted reference range: 166 - 358 10*3/?L. The reference range was not used to interpret this result as normal/abnormal. MPV (test code = 19593-0) 10.1 fL 9.5-12.9 NRBC/100 WBC (test code = 1302333515) 0.0 See_Comment [Automated me ssage] The system which generated this result transmitted reference range: 0.0 - 10.0 /100 WBCs. The reference range was not used to interpret this result as normal/abnormal. NRBC x10^3 (test code = 6666716870) See_Comment [Automated messa ge] The system which generated this result transmitted reference range: 10*3/?L. The reference range was not used to interpret this result as normal/abnormal. GRAN MAT (NEUT) % (test code = 770-8) 59.5 % IMM GRAN % (test code = 5002783313) 0.10 % LYMPH % (test code = 736-9) 31.2 % MONO % (test code = 5905-5) 5.9 % EOS % (test code = 713-8) 2.8 % BASO % (test code = 706-2) 0.5 % GRAN MAT x10^3(ANC) (test code = 3285818474) 5.43 10*3/uL 1.88-7.09 IMM GRAN x10^3 (test code = 8809603814) 0.00-0.06 LYMPH x10^3 (test code = 731-0) 2.85 10*3/uL 1.32-3.29 MONO x10^3 (test code = 742-7) 0.54 10*3/uL 0.33-0.92 EOS x10^3 (test code = 711-2) 0.26 10*3/uL 0.03-0.39 BASO x10^3 (test code = 704-7) 0.05 10*3/uL 0.01-0.07 Lab Interpretation (test code = 86986-2) [facility] [id number] 14:10:00 * Test Item Value Reference Range [...] used to interpret this result as normal/abnormal. [facility] IgG and IgM panel - [id number] 19:14:00* Test Item Value Reference Range Interpretation Comme nts beta 2 glyco,IgG (test code = beta 2 glyco,IgG) <9 0-20 beta 2 glyco,IgA (test code = beta 2 glyco,IgA) <9 0-25 beta 2 glycoprot,IgM (test c ode = beta 2 glycoprot,IgM) <9 0-32 [facility] IgG and IgM panel - [id number] 19:14:00 * Test Item Value Reference Range Interpretation Comme nts anticardiolipin Ab IgG (test code = anticardiolipin Ab IgG) <9 0-14 anticardiolipin Ab IgM (test code = anticardiolipin Ab IgM) <9 0-12 [facility] w/rfx HPV if ASCUS+leukorrhea panel rfx [...] (test code = vance - swab) normal [facility] Hospital[facility]inalysis macro (dipstick) panel - [id number] 09:40:09* Test Item Value Reference Range Interpretation Comme nts Leukocytes (test code = Leukocytes) Trace Nitrite (test code = Nitrite) negative Urobilinogen (test code = Urobilinogen) .2 Protein (test code = Protein) Negative pH (test code = pH) 5.5 Blood (test code = Blood) Negative Specific Bruner (test code = Specific Bruner) 1.030 Ketone (test code = Ketone) Negative Bilirubin (test code = Bilirubin) Small Glucose (test code = Glucose) Negative Appearance (test code = Appearance) Cloudy Color (test code = Color) Yellow [facility] - cancer history assessment [id number] 08:33:00 * Test Item Value Reference Range Interpretation Comme nts [facility] [place] (test code = [facility] [place]) does not meet criteria [facility] + NG + TV, DNA, urine/[id number] 00:00:00* Test Item Value Reference Range Interpretation Comme nts vance - swab (test code = vance - swab) normal gardnerella (test code = gardnerella) abnormal A CT/NG (test code = CT/NG) normal trichomonas vaginalis addon - swab (test code = trichomonas vaginalis addon - swab) normal [facility] macro (dipstick) panel - [id number] 14:03:06* Test Item Value Reference Range Interpretation Comme nts Leukocytes (test code = Leukocytes) Negative Nitrite (test code = Nitrite) negative Urobilinogen (test code = Urobilinogen) .2 Protein (test code = Protein) Negative pH (test code = pH) 6.0 Blood (test code = Blood) Negative Specific Bruner (test code = Specific Bruner) 1.030 Ketone (test code = Ketone) Negative Bilirubin (test code = Bilirubin) Negative Glucose (test code = Glucose) Negative Appearance (test code = Appearance) Clear Color (test code = Color) Yellow [facility] [id number] 20:02:00* Test Item Value Reference Range Interpretation Comme nts POCT PREG (test code = 1605) Negative On board controls acceptable with C Line (test code = 3574) Yes POCT PREG LOT # (test code = 3575) POCT PREG TEST DATE ( test code = 3576) [facility] Notes Date/Time Note Provider Source 2025-01-30 10:28:40 0945- Name and verified. Pt stated that she gets sharp pains in chest once every 2-3 hrs. Pain 7/10. Started 2 days ago. Pt also stated that she started bleeding x 2 days. Enough to be on underwear. Has not had intercourse and denies vaginal discharge. Instructed pt to go to ER to be evaluated. Verbalized understanding. OLYA CHEN RN 01/30/2025 10:33 AM T [facility] 2025-01-30 09:10:03 Images from the original note were not included. Pt returning the call. [place]into [facility] 2025-01-30 08:35:20 LM on for pt to return call. OLYA CHEN RN 01/30/2025 8:35 AM T [facility] 2025-01-19 16:28:19 Received [facility] results via fax. Stamped and will be scanned/uploaded into pt's chart. [facility] 2025-01-16 12:45:00 Age: [age] year old GA: 12w2d PLAN 1. High-risk in first trimester 2. 12 weeks gestation of - POCT Urinalysis w/o Specific Bruner- Negative protein and nitrates - OB Ultrasound Transabdominal, Limited (<14 wks) - 155 BPM - CONSULT MATERNAL MEDICINE ULTRASOUND Multiple Gestation: No 3. Susceptible to varicella (non-immune), currently May vaccinate vaccinate PP 4. Rubella non-immune status, antepartum May vaccinate PP 5. Obesity in Continue healthy diet and exercises. 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 Negative antiphospholipids screen negative. -NIPT- Low risk male -All questions addressed F/u with Dr. Whitley in 4 weeks or prsimon Padron, HENRIETTA, SET O TYPE OPERATOR-BC 01/16/2025 at 2:48 PM [facility] 2025-01-13 13:27:25 Received panorama results via fax. Stamped and uploaded to chart. Patient viewed results via [employer] portal. Dick Malave RN 01/13/2025 1:28 PM Dick Malave RN [facility] 2024-12-19 16:37:58 Name and verified. Pt stated [...] understanding. OLYA CHEN RN 12/19/2024 4:44 PM SION SUPERVISOR Olya Chen RN [facility] 2024-12-19 16:23:40 Derek Garcia is a 29 year old female Called the clinic earlier, was prescribed progesterone. Pt calling again to talk to a nurse she states she started spotting, she is concerned and will like a call back for advice SION SUPERVISOR Ursula Torrez [facility] 2024-12-19 14:06:59 Patient advised per herbert Blake to be seen in 2 weeks for usg. Appointment made Dick Malave RN 12/19/2024 2:07 PM SION SUPERVISOR Dick Malave RN [facility] 2024-12-19 13:55:41 Returned patients call regarding results [...] understanding. Dick Malave RN 12/19/2024 1:57 PM [facility] 2024-12-19 12:09:06 Derek Garcia is a 29 year old female Calling to go over test results. Pt was advised respond time frame can be up to two business days. ER Torrez [facility] 2024-12-19 11:39:48 Pt would like to speak with a nurse about results. [facility] Anita Larsen [facility] 2024-12-18 11:15:00 50 Glucola @ 1112. No issues. Pt finished @ 1112 Draw Time @ 1212. [facility] 2024-12-18 11:15:00 Images from the original note were not included. Venipuncture collection performed by clean technique on the right anticubitus. Total of 1 attempts were made. Slight pressure and a bandage/dressing were applied to the site(s). The patient experienced no complications. The following specimens were processed according to instructions and sent to [facility] laboratories per lab order on 12/18/2024: LT BLUE 3 SST 6 RED 1 LAV 2 PPT DK GREEN (LiHep) DK GREEN (SodH) SHELLEY DK BLUE (K2) DK BLUE (S) ACD Blood Culture NIPT/NTD [facility] 2024-12-18 11:15:00 Addended by: SHARIFA PAZ on: 12/18/2024 03:18 PM Modules accepted: Orders SION SUPERVISOR Sharifa Alejandro Kimani Boyce [facility] 2024-12-18 11:15:00 Addended by: SHARIFA PAZ on: 12/18/2024 06:24 PM Modules accepted: Orders [facility] 2024-12-18 10:00:00 Age: [age] year old GA: 8w1d by reported THOMAS Nausea without vomiting -Not bothersome -Discussed sharonda dxhd-ner-ogfizmw as needed. Discussed Reglan/Unisom as needed History [...] I discussed I deliver my patients at [facility]. Expectations for weight gain this include 15-25 pounds. Encouraged to call if have any additional questions or concerns. Discussed aneuploidy and carrier screening; patient opts for panorama/[facility]izon. Discussed with patient that she can have HEALTHY support with her during her delivery (which is subject to change). Declined flu vaccine today Follow-up in 4 weeks for visit with SHAREMILKER Follow-up in 8 weeks for pedal visit with Whitley SION SUPERVISOR [facility] 2024-12-05 18:25:18 Registration called and said patient left because she was not getting and ultrasound. Patient eloped after being seen by provider. SION SUPERVISOR George Fajardo RN [facility] 2024-05-16 15:57:40 Called patient, notified patient positive for UTI, BV, and Yeast. Educated patient on medications, good perineal hygiene, and increasing fluids. Pt verbalized understanding. ISA GARCIA RN 05/16/2024 3:57 PM Isa Garcia RN [facility] 2024-05-16 14:34:04 Please call patient and let her know she has UTI, BV, and vaginal yeast. All erx sent. [facility] 2024-04-09 00:17:00 [facility] Hospitalist History Physical REPORT#:[id number] REPORT STATUS: Signed REPORT INITIALIZATION DATE:04/09/24 TIME: 16 PATIENT: LACEY GARCIAN UNIT #: [id number] ROOM/BED: : 95 AGE: 28 SEX: F ATTEND: Flor Rouse MD ADM DT: AUTHOR: Rosalnie Goss MD REPT SERVICE DT/TIME: 04/09/2416 * ALL edits or amendments must be made on the electronic/computer document * History of Present Illness HPI Chief complaint: Suspected ectopic HPI: 28 y/o presents as a self transported transport for evaluation of a suspected right ectopic . Patient presented to [facility] in [facility] with a positive test and RLQ [...] % (Auto) (14.5 - 29.7 %) 20.5 [place] % (Auto) (3.6 - 10.2 %) 6.7 Eos % (Auto) (0.0 - 3.0 %) 1.3 Baso % (Auto) (0.1 - 0.9 %) 0.3 Neut # (Auto) (K/mm3) 8.6 Lymph # (Auto) (K/mm3) 2.5 [place] # (Auto) (K/mm3) 0.8 Eos # (Auto) (K/mm3) 0.16 Baso # (Auto) (K/mm3) 0.0 Laboratory Tests 04/08 2201 Miscellaneous Maternal Serum HCG (mIU/mL) 2719 Laboratory Tests 04/08 2201 Urines Urine Color (YELLOW) YELLOW Urine Appearance (CLEAR) Slightly-Cloudy Urine pH (5 - 9) 5.0 Ur Specific Bruner (1.001 - 1.035) 1.023 Urine Protein (NEG) [...] treat with the Methotrexate. at 0028 RPT #:[id number] [facility]:01:00 [facility] ([facility] EMERGENCY PROVIDER REPORT REPORT#:[id number] REPORT STATUS: Signed DATE:04/08/24 TIME: 2200 PATIENT: DEREK GARCIA UNIT #: [id number] ROOM/BED: AGE: 28 SEX: F PCP PHYS: [...] is a G6, P0 [facility] to [facility] . The [...] % (Auto) (14.5 - 29.7 %) 20.5 [place] % (Auto) (3.6 - 10.2 %) 6.7 Eos % (Auto) (0.0 - 3.0 %) 1.3 Baso % (Auto) (0.1 - 0.9 %) 0.3 Neut # (Auto) (K/mm3) 8.6 Lymph # (Auto) (K/mm3) 2.5 [place] # (Auto) (K/mm3) 0.8 Eos # (Auto) (K/mm3) 0.16 Baso # (Auto) (K/mm3) 0.0 Miscellaneous Maternal Serum HCG (mIU/mL) 2719 Urines Urine Color (YELLOW) YELLOW Urine Appearance (CLEAR) Slightly-Cloudy Urine pH (5 - 9) 5.0 Ur Specific Bruner (1.001 - 1.035) 1.023 Urine Protein (NEG) [...] 97 On: Room air Interpretation Interpreted by wy Time 2142 Re-Evaluation [facility] )( Re-Evaluation/Progress #1 Text/Dict Note discussed results [...] Consultation Consultation Referral/Consult Name Rosaline Goss MD Chain Pegger Called [employer] Discussed with portrait consultant Requested Call Time 2349 Requested Call [...] a call to 911. at [phone] RPT #:[id number] END OF REPORT [facility] 2023-10-24 13:00:00 Addended by: RADHA JAMES on: 10/25/2023 03:51 PM Modules accepted: Orders [facility]
[2025-01-30 12:25] LABS: Absolute Eosinophils 0.1 K/uL (0-0.5); Absolute Lymphocytes (CBC) 2.1 K/uL (0.7-4.9); Absolute Monocytes 0.6 K/uL (0.1-1.3); Absolute Neutrophil 8.8 K/uL (1.8-8.0); Basophils % 0.3 % (0-1.3); Eosinophils % 0.8 % (0-4.4); Hematocrit 35.2 % (36.0-45.0); Hemoglobin 12.2 g/dL (12.0-15.0); Lymphocytes % 17.9 % (15.3-44.8); MCH 30.5 pg (27.0-35.0); MCHC 34.6 g/dL (32.0-36.0); MCV 88.1 fL (80-100); MPV 8.2 fL (7.6-11.3); Monocytes % 4.8 % (3.3-12.3); Neutrophils % 76.2 % (41.7-73.7); Platelets 273 thou/uL (152-406)
[2025-01-30 12:32] LABS: Specific Gravity 1.026 (1.005-1.030); Sqamous Epithelial >50 /HPF (None Seen); Urine Bacteria 20-50 /HPF (<20); Urine Bilirubin NEGATIVE (Negative); Urine Blood Negative (Negative); Urine Clarity Extremely Turbid (Clear); Urine Color Light-Orange (Yellow); Urine Crystals Unidentified Few /HPF (None Seen); Urine Culture Reflex Order NOT NEEDED; Urine Glucose 2+ (Negative); Urine Ketones TRACE (Negative); Urine Micro Reflex YN NO BILL MICROSCOPIC; Urine Mucus 4+ /HPF (None Seen); Urine Nitrite NEGATIVE (Negative); Urine Protein 1+ (Negative); Urine RBC None Seen /HPF (None Seen); Urine Urobilinogen Normal (Normal); Urine WBC 20-50 /HPF (<5); Urine Yeast (Budding) Trace /HPF (None Seen)
--- NOTE | 2025-01-30 12:46 | RAD REPORT ---
EXAM:OB Limited . CLINICAL HISTORY: with abdominal pain. ABD CRAMPING, TECHNIQUE: Limited OB ultrasound performed. FINDINGS: Single live intrauterine gestation in breech position. Heart rate 148 BPM. Placenta is anterior low l bigg. Cervix measures 3.3 cm appears closed. Amniotic fluid volume subjectively normal. Estimated gestational age 14 weeks 5 days, THOMAS 07/26/2025. No acute abnormality detected. Neither ovary seen due to bowel gas. IMPRESSION: Single live intrauterine gestation as detailed in breech position. Low-lying placenta may resolve wit h continued uterine expansion, follow-up sonography in the second trimester would be recommended to reassess the placental position.
[2025-01-30 13:01] LABS: AST/SGOT 13 U/L (15-37); Albumin/Globulin Ratio 0.8 (1.1-1.8); Alkaline Phosphatase 60 U/L (45-117); Anion Gap 12.1 mEq/L (5.0-15.0); BUN Blood Urea Nitrogen 7 mg/dL (7-18); Bicarbonate 22 mEq/L (21-32); Bilirubin Total 0.2 mg/dL (0.2-1.0); Globulin 3.8 g/dL (2.3-3.5); Glomerular Filtration Rate 122 ml/min (=/>90); Glucose Level 121 mg/dL (74-106); HCG, Quantitative 28533 mIU/mL (1-3); Magnesium 1.8 mg/dL (1.6-2.4); Potassium 3.1 mEq/L (3.5-5.1); Protein, Total 6.8 g/dL (6.4-8.2); Sodium Level 137 mEq/L (136-145)
[2025-01-30 13:02] LABS: ALT/SGPT < 14 U/L (13-56); Bilirubin Direct < 0.2 mg/dL (0-0.2); Troponin High Sensitivity < 3.0 pg/mL (<58.9)
--- NOTE | 2025-01-30 13:22 | RAD REPORT ---
EXAMINATION: ONE VIEW CHEST XR CLINICAL INDICATION: CHEST PAIN TECHNIQUE: Frontal chest projection is submitted. Examination is limited by patient positioning and t echnique. COMPARISON: 07/02/2020 FINDINGS: The lungs are well inflated and clear. The heart is normal in size. No displaced fractures identified . IMPRESSION: No acute intrathoracic abnormalities.
[2025-01-30] MEDS ORDERED: NA CHLORIDE 0.9% 1,000 ML ONE (13:29)
[2025-01-30] MEDS ORDERED: ACETAMINOPHEN 500 MG TAB ONE (13:29)
--- NOTE | 2025-01-30 13:44 | ER ---
Nurse's Notes [facility] Name: Beena Garcia Age: 29 yrs Sex: Female : 1995 Arrival Date: 01/30/2025 Time: 11:44 Bed DX4 Private MD: Diagnosis: UTI/ Urinary tract infection, site not specified;Chest pain, unspecified Presentation: 01/30 11:50 Chief complaint: Palpitations and left sided chest tightness x 2-3 days, spooty vaginal hb bleeding since last night, approx 14 weeks , . Coronavirus screen: At this time, the client does not indicate any symptoms associated with coronavirus-19. Ebola Screen: No symptoms or risks identified at this time. Initial Sepsis Screen: Does the patient meet any 2 criteria? No. Patient's initial sepsis screen is negative. Does the patient have a suspected source of infection? No. Patient's initial sepsis screen is negative. Risk Assessment: Do you want to hurt yourself or someone else? Patient reports no desire to harm self or others. Onset of symptoms was January 27, 2025. 11:50 Method Of Arrival: Ambulatory hb 11:50 Acuity: LETTY 3 hb Historical: - Allergies: 11:52 Codeine (Hives); hb - Home Meds: 11:52 None [Active]; hb - PMHx: 11:52 UTI; hb - PSHx: 11:52 L fallopian tube removed; Ectopic x 2 (L fallopian tube removed); hb Assessment: 14:34 Reassessment: Patient appears in no apparent distress at this time. Patient and/or ld1 family updated on plan of care and expected duration. Pain level reassessed. Patient is alert, oriented x 3, equal unlabored respirations, skin warm/dry/pink. Vital Signs: 11:52 BP 132 / 75; Pulse 100; Resp 16; Temp 98.9(O); Pulse Ox 100% on R/A; Weight 74.39 kg; hb Height 5 ft. 1 in. ; Pain 7/10; 11:52 Body Mass Index 30.99 (74.39 kg, 154.94 cm) hb 11:52 Pain Scale: Adult hb ED Course: 11:46 Patient arrived in ED. im 11:52 Triage completed. hb 11:52 Arm band placed on. hb 11:53 Tushar Grande MD is Attending Physician. jr11 11:57 EKG done, by ED staff, reviewed by Tushar Grande MD. hb 12:15 UAM Sent. hb 12:15 Abo/rh Typing Sent. hb 12:16 HCG-Quantitative Sent. hb 12:16 Basic Metabolic Panel Sent. hb 12:16 CBC with Diff Sent. hb 12:16 D-Dimer Sent. hb 12:16 LFT's Sent. hb 12:16 Magnesium Sent. hb 12:16 Troponin HS Sent. hb 12:16 Inserted saline lock: 20 gauge in right antecubital area, using aseptic technique. hb Blood collected. Flushed with 10 mL NS. 12:35 US OB Limited In Process Unspecified. EDMS 13:20 XRAY Chest (1 view) In Process Unspecified. EDMS 14:34 No provider procedures requiring assistance completed. IV discontinued, intact, ld1 bleeding controlled, No redness/swelling at site. Pressure dressing applied. Administered Medications: 13:40 Drug: NS 0.9% IV 1000 ml IV at 1000 ml once; to be given as a bolus over 60 minutes aa5 Route: IV; Rate: 1000 ml; Site: right antecubital; 14:33 Follow up: Response: No adverse reaction; IV Status: Completed infusion; IV Intake: ld1 1000ml 13:40 Drug: Acetaminophen PO 1000 mg PO once Route: PO; aa5 14:33 Follow up: Response: No adverse reaction ld1 Intake: 14:33 IV: 1000ml; Total: 1000ml. ld1 Outcome: 13:43 Discharge ordered by . jr11 14:34 Discharged to home ambulatory, with family, ld1 14:34 Condition: stable 14:34 Discharge instructions given to patient, Instructed on discharge instructions, follow up and referral plans. medication usage, Demonstrated understanding of instructions, follow-up care, medications, Prescriptions given X 1, 14:34 Patient left the ED. ld1 Signatures: Dispatcher [employer] EDMS Cally Moe RN RN aa5 Christine Ray RN RN Marleny Liu RN RN ld1 Tushar Grande MD MD jr11 Annette Basilio
--- NOTE | 2025-01-30 13:44 | EDPHYS ---
Physician Documentation [facility] Name: Beena Garcia Age: 29 yrs Sex: Female : 1995 Arrival Date: 01/30/2025 Time: 11:44 Bed DX4 Private MD: ED Physician Tushar Grande HPI: 01/30 12:12 Chief Complaint Heart racing and chest tightness. History of Present Illness The jr11 patient reports experiencing a racing heart since the night before last, approximately two days ago. The patient is unable to quantify the heart rate but describes being able to feel it and notes a pinching pain occurring about every other hour. The patient contacted their doctor but was unable to reach them until this morning and was advised by Urgent Care in [facility] to visit the ER. The patient continues to experience chest tightness today in the same area. Review of Systems - Cardiovascular: Racing heart, chest tightness. - ROS otherwise negative. . Historical: - Allergies: 11:52 Codeine (Hives); hb - Home Meds: 11:52 None [Active]; hb - PMHx: 11:52 UTI; hb - PSHx: 11:52 L fallopian tube removed; Ectopic x 2 (L fallopian tube removed); hb Exam: 12:12 Constitutional: This is a well developed, well nourished patient who is awake, alert, jr11 and in no acute distress. Head/Face: Normocephalic, atraumatic. Eyes: Extra-ocular motions intact. Lids and lashes normal. Conjunctiva and sclera are non-icteric and not injected. Cornea within normal limits. Periorbital areas with no swelling, redness, or edema. ENT: Nares patent. No nasal discharge, no septal abnormalities noted. Oropharynx with no redness, swelling, or masses, exudates, or evidence of obstruction, uvula midline. Mucous membranes moist. Chest/axilla: Normal chest wall appearance and motion. Nontender with no deformity. No lesions are appreciated. Cardiovascular: Regular rate and rhythm with a normal S1 and S2. No gallops, murmurs, or rubs. Normal PMI, no JVD. No pulse deficits. Abdomen/GI: gravid, non tender Skin: Warm, dry with normal turgor. Normal color with no rashes, no lesions, and no evidence of cellulitis. MS/ Extremity: Pulses equal, no cyanosis. Neurovascular intact. Full, normal range of motion. Vital Signs: 11:52 BP 132 / 75; Pulse 100; Resp 16; Temp 98.9(O); Pulse Ox 100% on R/A; Weight 74.39 kg; hb Height 5 ft. 1 in. ; Pain 7/10; 11:52 Body Mass Index 30.99 (74.39 kg, 154.94 cm) hb 11:52 Pain Scale: Adult hb MDM: 12:10 Medical Screening Exam initiated 12:12 Differential diagnosis: Medical Decision Making 1. Atrial fibrillation - no, RRR 2. jr11 Supraventricular tachycardia, no RRR 3. Myocardial infarction - r/o w trop 4. Anxiety-induced palpitations Plan - Obtain EKG to assess heart rhythm - Monitor cardiac enzymes - d-dimer r/o PE. 12:12 ED course: EKG interpreted by ne shows normal sinus rhythm, normal axis, normal [facility] intervals, no acute ST changes. 13:42 ED course: Ultrasound interpreted by ne, shows live fetus, chest x-ray interpreted by 11 me shows no pneumonia. Using years criteria, pulmonary embolus ruled out. Patient to follow-up with NURSING EXECUTIVE. Troponin negative, no concern for [place]. Patient to use Tylenol as needed for chest discomfort. No concern for ACS or PE.. 01/30 11:57 Order name: Basic Metabolic Panel; Complete Time: 13:39 01/30 11:57 Order name: CBC with Diff; Complete Time: 13:39 01/30 11:57 Order name: D-Dimer; Complete Time: 13:39 01/30 11:57 Order name: LFT's; Complete Time: 13:39 01/30 11:57 Order name: Magnesium; Complete Time: 13:39 01/30 11:57 Order name: Troponin HS; Complete Time: 13:39 01/30 11:57 Order name: HCG-Quantitative; Complete Time: 13:39 01/30 11:57 Order name: Abo/rh Typing; Complete Time: 14:13 01/30 12:06 Order name: UAM; Complete Time: 13:39 01/30 11:57 Order name: XRAY Chest (1 view); Complete Time: 13:39 01/30 11:57 Order name: US OB Limited; Complete Time: 13:39 01/30 11:57 Order name: Cardiac monitoring; Complete Time: 12:46 01/30 11:57 Order name: EKG - Nurse/Tech; Complete Time: 12:11 01/30 11:57 Order name: IV Saline Lock; Complete Time: 12:16 01/30 11:57 Order name: Labs collected and sent; Complete Time: 12:16 01/30 11:57 Order name: O2 Per Protocol; Complete Time: 12:16 01/30 11:57 Order name: O2 Sat Monitoring; Complete Time: 12:16 Administered Medications: 13:40 Drug: NS 0.9% IV 1000 ml IV at 1000 ml once; to be given as a bolus over 60 minutes aa5 Route: IV; Rate: 1000 ml; Site: right antecubital; 14:33 Follow up: Response: No adverse reaction; IV Status: Completed infusion; IV Intake: ld1 1000ml 13:40 Drug: Acetaminophen PO 1000 mg PO once Route: PO; aa5 14:33 Follow up: Response: No adverse reaction ld1 Disposition Summary: 01/30/25 13:43 Discharge Ordered Notes: Location: Home [facility] Condition: Stable [facility] Diagnosis - UTI/ Urinary tract infection, site not specified jr11 - Chest pain, unspecified jr11 Discharge Instructions: - Discharge Summary Sheet jr11 - Nonspecific Chest Pain, Adult [facility] Forms: - Medication Reconciliation Form jr11 - Antibiotic Education jr11 - Prescription Opioid Use jr11 - Patient Portal Instructions 11 - Leadership Thank You Letter 11 Prescriptions: - Cephalexin 500 mg Oral Capsule - take 1 capsule ORAL route every 8 hours for 10 days; 30 capsule; Refills: 0, jr11 Product Selection Permitted Signatures: Dispatcher [employer] Cally Mtz RN RN aa5 Christine Ray RN RN hb Rosillo, Jose, MD MD jr11 Marleny Liu RN ld1 Corrections: (The following items were deleted from the chart) 11:57 11:57 BASIC METABOLIC PANEL+C.LAB.BRZ ordered. EDMS EDMS 11:57 11:57 CBC+H.LAB.BRZ ordered. EDMS EDMS 11:57 11:57 D-DIMER+COAG.LAB.BRZ ordered. EDMS EDMS 11:57 11:57 HEPATIC FUNCTION+C.LAB.BRZ ordered. EDMS EDMS 11:57 11:57 MAGNESIUM+C.LAB.BRZ ordered. EDMS EDMS 11:57 11:57 Troponin High Sensitivity+C.LAB.BRZ ordered. EDMS EDMS 11:57 11:57 QUANTITATIVE HCG+C.LAB.BRZ ordered. EDMS EDMS 11:57 11:57 ABO/RH TYPING+BB.LAB.BRZ ordered. EDMS EDMS 11:57 11:57 Chest Single View+RAD.RAD.BRZ ordered. EDMS EDMS
[2025-01-30 14:54] VITALS: BP 132/75; TEMP 98.9; O2SAT 100
--- NOTE | 2025-02-02 10:58 | EKG ---
Test Date: 2025-01-30 Test Time: 11:57:52 Marketing Communications Leader: HB MEASUREMENT RESULTS: Intervals: Rate: 97 CT: 146 QRSD: 74 QT: 352 QTc: 447 [place]: P: 45 CT: 146 QRS: 56 T: 31 INTERPRETIVE STATEMENTS: Normal sinus rhythm Nonspecific T wave abnormality Abnormal ECG Compared to ECG 04/01/2021 20:46:20 T-wave abnormality now present Sinus tachycardia no longer present Right-axis deviation no longer present Electronically Signed On 02-02-25 10:50:53 CDT by Demetrio Saldaña
== END 2025-01-30 14:34 | disposition home or self-care (01) ==
LOC: ER 11:44
DX: O23.42 Unspecified infection of urinary tract in pregnancy, second trimester (principal); O26.892 Other specified pregnancy related conditions, second trimester; Z3A.14 14 weeks gestation of pregnancy
CPT/HCPCS: 85025; 81001; 80048; 36415; 86900; 83735; 86901; 85379; 80076; 84702; 84484; 71045; 76815; 96360; 99284; J7030; 93005

== ENCOUNTER 2025-02-26 17:37 | Emergency (ER) | payer OTHER ==
--- OUTSIDE RECORDS SUMMARY | 2025-02-26 17:44 | XMS REPORT | Continuity of Care Document ---
Author Name Unknown Address [address] [facility] [address] [place] [address] [facility] [address] [facility] [address] [place] [address] Care Team Providers Care Lusterer Name Role Phone PCP, PATIENT DOES NOT HAVE A Primary Care Physic jorge Unavailable ALTAGRACIA WHITLEY Attending Clinician Unavailable ALTAGRACIA WHITLEY Attending Clinician Unavailable JAD PADRON Attending Clinician Unavailable Altagracia Whitley MD Attending Clinician [phone] Pob, [facility] Main Attending Clinician Unavailabl e Doctor Unassigned, [place] Attending Clinician U navailable Jad Padron DNP Attending Clinician [phone], [facility] Attending Clinician Unavailable STEPHANIE HICKS Attending Clinician Unavail able MARCUS MCKEON Attending Clinician Unavail able MARCUS MCKEON Attending Clinician Unavail able Marcus Mckeon MD Attending Clinician [phone] ENA SMALL Attending Clinician Unavaila Shelby Tavarez Attending Clinician [phone] SHELBY MERCER Attending Clinician Unavailable Stephanie Parisi Attending Clinician + Ena Small CNM Attending Clinician [phone] Stephanie Parisi Attending Clinician + Flor Rouse Attending Clinician Unavailable ELISE HERNANDEZ Attending Clinician Unavailyarelis Blunt Attending Clinician Unavailable JANE TITUS Attending Clinician Unavailable UNKNOWN, ATTENDING Attending Clinician Unavailab RADHA Dave Attending Clinician Unavailable Radha James PA-C Attending Clinician [phone] Unknown, Attending Attending Clinician Unavailab le Doctor Unassigned, [place] Attending Clinician U IVY Pabon Attending Clinician UnavailVELIA Mcduffie Attending Clinician Unavailable RICHARD AMAYA Attending Clinician Unavailab KARLA Damian Attending Clinician Unavailyarelis Barreto, Ang-Rmchp Attending Clinician Unavailable Ida Marroquin Attending Clinician [phone] Richard Machuca Attending Clinician UnaPardeep Samrt DO Attending Clinician [phone] IDA VARELA Attending Clinician UnavailLyndon Alvarez Admitting Clinician Unavailab daya Blunt Admitting Clinician Unavailable Payers Payer Name Policy Type Policy Number Effective Date Expirati on Date Source [facility] [id number] 2025 00:00:00 [facility] [id number] 2023 00:00:00 [facility] (MEDICAID HMO) [id number] 2016 00:00:00 MEDICAID PENDING PENDING 2021 00:00:00 [facility] [id number] 2017 00:00:00 Problems Condition Name Condition Details Condition Category Status Onset Date Resolution Date Last Treatment Date Treating Clinician Comments Source Sciatic pain, unspecifie d laterality Sciatic pain, unspecifie d laterality Disease Active 02-16 00:00: 00 [facility] Anxiety and depression Anxiety and depression Disease Active 02-16 00:00: 00 [facility] Obesity in Obesity in Disease Active 12-18 00:00: 00 [facility] Excessive weight gain Excessive weight gain Disease Active 12-18 00:00: 00 [facility] of left fallopian tube of Left Fallopian Tube Problem Active 4-12 00:00: 00 [facility] High risk due to recurrent loss High Risk Due to Recurrent Loss Problem Active 4-03 00:00: 00 [facility] History of abnormal cervical Pap smear History of abnormal cervical Pap smear Disease Active 5-13 00:00: 00 Overview: Formattin g of this note might be different from the original. 2016 Negative PAP [id number] Negative PAP +[id number] Negative PAP +HPV, negative [id number] Negative PAP and [id number] Negative PAP and [id number] pending [facility] Encounter for [...] 2- 00:00: 00 2024-05-13 00:00:00 2024-05-13 13:17:50 [facility] Cyst of right ovary Cyst of right ovary Disease Resolve d 04-13 00:00: 00 2023-03-03 00:00:00 2023-03-03 12:56:01 [facility] Susceptibl e to varicella (non-immun e), currently Susceptibl e to varicella (non-immun e), currently Disease Resolve d 6- 00:00: 00 2022-03-31 00:00:00 2022-03-31 16:16:07 [facility] Rubella non-immune status, antepartum Rubella non-immune status, antepartum Disease Resolve d 6-02 00:00: 00 2022-03-31 00:00:00 2022-03-31 16:16:09 [facility] High-risk in second trimester High-risk in second trimester Disease Active 6- 00:00: 00 2022-03-31 00:00:00 2022-03-31 16:16:10 [facility] History of miscarriag e History of miscarriag e Disease Resolve d 6- 00:00: 00 2022-03-31 00:00:00 2022-03-31 16:16:11 [facility] Vaginal bleeding in Vaginal bleeding in Disease Resolve d 6- 00:00: 00 2022-03-31 00:00:00 2022-03-31 16:16:05 [facility] [...] UTI symptoms UTI symptoms Disease Resolve d 2019- 3-16 00:00: 00 2021-03-22 00:00:00 2021-03-22 16:31:05 [facility] Contracept rishi management Contracept rishi management Disease Resolve d 2016-10 2- 00:00: 00 2021-03-22 00:00:00 2021-03-22 16:30:57 [facility] [...] 2015-10 00:00: 00 2017-09-21 00:00:00 2017-09-21 14:05:50 [facility] [...] 00:00:00 2022-05-07 00:43:11 [facility] Flu vaccine need [...] DA Active SV HIVES 04-08 00:00: 00 [facility] Emmie Tan ty to adverse reaction s Active Hives 02-27 00:00: 00 [facility] CODEINE DRUG INGREDI Active Hives 02-27 00:00: 00 [facility] Codeine Allergy to substanc e Active [facility] Social History Social Habit Start Date Stop Date Quantity Comments Source ASSERTION 2024-11-05 00:00:00 [facility] Alcoholic beverage intake 2025-02-16 00:00:00 2025-02-16 00:00:00 Ex-drinker (finding) [facility] History of Social function 2024-05-13 00:00:00 2024-05-13 00:00:00 [facility] Alcohol intake 2023-11-13 00:00:00 2023-11-13 00:00:00 Current drinker of alcohol (finding) [facility] Exposure to SARS-CoV-2 (event) 2023-02-18 00:00:00 2023-02-28 06:11:00 Not sure [facility] Alcohol Comment 2023-02-28 00:00:00 2023-02-28 00:00:00 social [facility] Tobacco use and exposure 2022-06-21 00:00:00 2022-06-21 00:00:00 Smokeless tobacco non-user [facility] Sex assigned at 1995 00:00:00 1995 00:00:00 [facility] Smoking Status Start Date Stop Date Source Never smoked tobacco [facility] Medications Ordered Medication Name Filled Medication Name Start Date Stop Date Current Medication? Ordering Clinician Indication Dosage Frequency Signature (SIG) Comments Components Source Vit Comb.10-Iro n-FA 65-1 mg Tab 12-18 10:12: 20 Yes Take by mouth. [facility] progesteron e 200 mg capsule 12-18 00:00: 00 02-16 00:00 :[id number] 1 pill in vagina nightly until 12 weeks of gestation [facility] metroNIDAZO LE 500 mg tablet 11-19 00:00: 12-18 00:00 :00 No [id number] 500mg Take 1 tablet by mouth every 12 (twelve) hours. [facility] fluconazole 150 mg tablet 11-18 00:00: 00 12-18 00:00 :00 No [id number] 150mg Take 1 tablet by mouth every 3 (three) days. [facility] norgestimat e-ethinyl estradioL (ORTHO TRI-CYCLEN, ,) 0.18/0.215/ 0.25 mg-35 mcg (28) tablet 2023-10 00:00: 00 12-18 00:00 :00 No [id number] 1{tbl} Take 1 tablet by mouth in the morning. [facility] Nitrofurant oin&Nit. Macrocryst (MACROBID) 100 mg capsule 05-16 00:00: 00 05-27 04:59 :00 No [id number] 100mg Take 1 capsule by mouth in the morning and 1 capsule in the evening. Do all this for 10 days. [facility] metroNIDAZO LE 500 mg tablet 05-15 00:00: 00 05-23 04:59 :00 No [id number] 500mg Take 1 tablet by mouth in the morning and 1 tablet in the evening. Do all this for 7 days. [facility] fluconazole (DIFLUCAN) 150 mg tablet 05-15 00:00: 00 05-16 04:59 :00 No [id number] 150mg Take 1 tablet by mouth once now for 1 dose. [facility] phentermine HCl (PHENTERMIN E ORAL) 05-13 12:58: 39 12-18 00:00 :00 No Take by mouth. [facility] norgestimat e-ethinyl estradioL (ORTHO TRI-CYCLEN, ,) 0.18/0.215/ 0.25 mg-35 mcg (28) tablet 05-13 00:00: 00 09-15 00:00 :00 No [id number] 1{tbl} Take 1 tablet by mouth in the morning. [facility] cefdinir 300 mg capsule 3-22 00:00: 00 05-13 00:00 :00 No [id number] 300mg Take 1 capsule by mouth every 12 (twelve) hours. [facility] fluconazole (DIFLUCAN) 150 mg tablet 1-04 00:00: 00 05-13 00:00 :00 No [id number] 150mg Take 1 tablet by mouth every 72 (seventy-t wo) hours. [facility] Nitrofurant oin&Nit. Macrocryst (MACROBID) 100 mg capsule 1-03 00:00: 00 05-13 00:00 :00 No [id number] 100mg Take 1 capsule by mouth in the morning and 1 capsule in the evening. [facility] fluconazole (DIFLUCAN) 150 mg tablet 5-12 00:00: 00 03-03 04:59 :00 No [id number] 150mg Take 1 tablet by mouth once now for 1 dose. Take second tablet in 1 week [facility] phentermine HCl (PHENTERMIN E ORAL) 5 08:20: 44 Yes Take by mouth. [facility] norgestimat e-ethinyl estradioL (ORTHO TRI-CYCLEN, 28,) 0.18/0.215/ 0.25 mg-35 mcg (28) tablet 9-16 00:00: 00 02-28 00:00 :00 No [id number] 1{tbl} Take 1 tablet by mouth in the morning. [facility] Nitrofurant oin&Nit. Macrocryst (MACROBID) 100 mg capsule - 00:00: 00 02-28 00:00 :00 No [id number] 100mg Take 1 capsule by mouth 2 (two) times daily. [facility] PNV 67-iron ps-folate no.1-dha (VITAFOL ULTRA) 29 mg iron- 1 mg-200 mg Cap - 00:00: 00 10-28 00:00 :00 No [id number] 1{each} Take 1 Each by mouth daily. [facility] norgestimat e-ethinyl estradioL 0.18/0.215/ 0.25 mg-25 mcg tablet 02-23 00:00: 00 10-28 00:00 :00 No [id number] 1{tbl} Take 1 tablet by mouth daily. [facility] ibuprofen 800 mg tablet Take 1 tablet every 6 hours by oral route as needed. ibuprofen 800 mg tablet Take 1 tablet every 6 hours by oral route as needed. No 1 Q6H ibuprofen 800 mg tablet Take 1 tablet every 6 hours by oral route as needed. [facility] Diflucan 100 mg tablet Take 1 tablet every day by oral route for 3 days. Diflucan 100 mg tablet Take 1 tablet every day by oral route for 3 days. No 1 Q1D Diflucan 100 mg tablet Take 1 tablet every day by oral route for 3 days. [facility] Immunizations Ordered Immunization Name Filled Immunization Name Date Status Comments Source HPV9 2019-09-10 00:00:00 Completed [facility] HPV9 2019-09-10 00:00:00 Completed [facility] HPV9 2019-09-10 00:00:00 Completed [facility] HPV9 2019-09-10 00:00:00 Completed [facility] HPV9 2019-09-10 00:00:00 Completed [facility] HPV9 2019-09-10 00:00:00 Completed [facility] HPV9 2019-09-10 00:00:00 Completed [facility] HPV9 2019-06-17 00:00:00 Completed [facility] HPV9 2019-06-17 00:00:00 Completed [facility] HPV9 2019-06-17 00:00:00 Completed [facility] HPV9 2019-06-17 00:00:00 Completed [facility] HPV9 2019-06-17 00:00:00 Completed [facility] HPV9 2019-06-17 00:00:00 Completed [facility] HPV9 2019-06-17 00:00:00 Completed [facility] Influenza Virus Vaccine Quad IM 3+ YRS 2016-09-06 00:00:00 Completed Influenza Virus Vaccine Quad IM 3+ YRS 2016-09-06 00:00:00 Completed [facility] Influenza Virus Vaccine Quad IM 3+ YRS 2016-09-06 00:00:00 Completed [facility] Influenza Virus Vaccine Quad IM 3+ YRS 2016-09-06 00:00:00 Completed [facility] Influenza Virus Vaccine Quad IM 3+ YRS 2016-09-06 00:00:00 Completed [facility] Influenza Virus Vaccine Quad IM 3+ YRS 2016-09-06 00:00:00 Completed [facility] Influenza Virus Vaccine Quad IM 3+ YRS 2016-09-06 00:00:00 Completed [facility] TDAP 2009-10-22 00:00:00 Completed [facility] TDAP 2009-10-22 00:00:00 Completed [facility] TDAP 2009-10-22 00:00:00 Completed [facility] TDAP 2009-10-22 00:00:00 Completed [facility] TDAP 2009-10-22 00:00:00 Completed [facility] TDAP 2009-10-22 00:00:00 Completed [facility] TDAP 2009-10-22 00:00:00 Completed [facility] HPV9 Unknown Completed [facility] TDAP Unknown Completed [facility] Influenza Virus Vaccine Quad IM 3+ YRS Unknown Completed [facility] HPV9 Unknown Completed [facility] TDAP Unknown Completed [facility] Influenza Virus Vaccine Quad IM 3+ YRS Unknown Completed [facility] HPV9 Unknown Completed [facility] TDAP Unknown Completed [facility] Influenza Virus Vaccine Quad IM 3+ YRS Unknown Completed [facility] HPV9 Unknown Completed [facility] TDAP Unknown Completed [facility] Influenza Virus Vaccine Quad IM 3+ YRS Unknown Completed [facility] HPV9 Unknown Completed [facility] TDAP Unknown Completed [facility] Influenza Virus Vaccine Quad IM 3+ YRS Unknown Completed [facility] HPV9 Unknown Completed [facility] TDAP Unknown Completed [facility] Influenza Virus Vaccine Quad IM 3+ YRS Unknown Completed [facility] HPV9 Unknown Completed [facility] TDAP Unknown Completed [facility] Influenza Virus Vaccine Quad IM 3+ YRS Unknown Completed [facility] HPV9 Unknown Completed [facility] TDAP Unknown Completed [facility] Influenza Virus Vaccine Quad IM 3+ YRS Unknown Completed [facility] HPV9 Unknown Completed [facility] TDAP Unknown Completed [facility] Influenza Virus Vaccine Quad IM 3+ YRS Unknown Completed [facility] HPV9 Unknown Completed [facility] TDAP Unknown Completed [facility] Influenza Virus Vaccine Quad IM 3+ YRS Unknown Completed [facility] HPV9 Unknown Completed [facility] TDAP Unknown Completed [facility] Influenza Virus Vaccine Quad IM 3+ YRS Unknown Completed [facility] HPV9 Unknown Completed [facility] TDAP Unknown Completed [facility] Influenza Virus Vaccine Quad IM 3+ YRS Unknown Completed [facility] HPV9 Unknown Completed [facility] TDAP Unknown Completed [facility] Influenza Virus Vaccine Quad IM 3+ YRS Unknown Completed [facility] HPV9 Unknown Completed [facility] TDAP Unknown Completed [facility] Influenza Virus Vaccine Quad IM 3+ YRS Unknown Completed [facility] HPV9 Unknown Completed [facility] TDAP Unknown Completed [facility] Influenza Virus Vaccine Quad IM 3+ YRS Unknown Completed [facility] HPV9 Unknown Completed [facility] TDAP Unknown Completed [facility] Influenza Virus Vaccine Quad IM 3+ YRS Unknown Completed [facility] HPV9 Unknown Completed [facility] TDAP Unknown Completed [facility] Influenza Virus Vaccine Quad IM 3+ YRS Unknown Completed [facility] HPV9 Unknown Completed [facility] TDAP Unknown Completed [facility] Influenza Virus Vaccine Quad IM 3+ YRS Unknown Completed [facility] HPV9 Unknown Completed [facility] TDAP Unknown Completed [facility] Influenza Virus Vaccine Quad IM 3+ YRS Unknown Completed [facility] Vital Signs Vital Name Observation Time Observation Value Comments S ource Systolic blood pressure 2025-02-16 21:13:00 108 mm[Hg] [facility] Diastolic blood pressure 2025-02-16 21:13:00 66 mm[Hg] [facility] Heart rate 2025-02-16 21:13:00 81 /min [facility] temperature 2025-02-16 21:13:00 36.56 Shelly [facility] Body height 2025-02-16 21:13:00 154.9 cm Univ [facility] Body weight 2025-02-16 21:13:00 74.844 kg [facility] BMI 2025-02-16 21:13:00 31.18 kg/m2 Univ [facility] Systolic blood pressure 2025-01-16 17:59:00 115 mm[Hg] [facility] Diastolic blood pressure 2025-01-16 17:59:00 71 mm[Hg] [facility] Heart rate 2025-01-16 17:59:00 85 /min Unive [facility] Body temperature 2025-01-16 17:59:00 37.67 Shelly [facility] Respiratory rate 2025-01-16 17:59:00 18 /min [facility] Body weight 2025-01-16 17:59:00 74.481 kg [facility] BMI 2025-01-16 17:59:00 30.03 kg/m2 Univ [facility] Systolic blood pressure 2024-12-18 16:24:00 107 mm[Hg] [facility] Diastolic blood pressure 2024-12-18 16:24:00 71 mm[Hg] [facility] Heart rate 2024-12-18 16:24:00 90 /min Unive [facility] Body temperature 2024-12-18 16:24:00 37.28 Shelly [facility] Respiratory rate 2024-12-18 16:24:00 18 /min [facility] Body height 2024-12-18 16:24:00 157.5 cm Univ [facility] Body weight 2024-12-18 16:24:00 75.388 kg [facility] BMI 2024-12-18 16:24:00 30.40 kg/m2 Univ [facility] Systolic blood pressure 2024-11-18 19:27:00 126 mm[Hg] [facility] Diastolic blood pressure 2024-11-18 19:27:00 78 mm[Hg] [facility] Heart rate 2024-11-18 19:27:00 70 /min Unive [facility] Body temperature 2024-11-18 19:27:00 36.67 Shelly [facility] Respiratory rate 2024-11-18 19:27:00 18 /min [facility] Body height 2024-11-18 19:27:00 154.9 cm [facility] Body weight 2024-11-18 19:27:00 75.206 kg [facility] BMI 2024-11-18 19:27:00 31.33 kg/m2 [facility] Systolic blood pressure 2024-05-13 17:53:00 115 mm[Hg] [facility] Diastolic blood pressure 2024-05-13 17:53:00 76 mm[Hg] [facility] Heart rate 2024-05-13 17:53:00 74 /min Unive [facility] Body temperature 2024-05-13 17:53:00 36.67 Shelly [facility] Respiratory rate 2024-05-13 17:53:00 18 /min [facility] Body height 2024-05-13 17:53:00 154.9 cm [facility] Body weight 2024-05-13 17:53:00 70.398 kg [facility] BMI 2024-05-13 17:53:00 29.32 kg/m2 [facility] BP Systolic 2024-02-15 00:00:00 108 mm[Hg] [facility] BP Diastolic 2024-02-15 00:00:00 71 mm[Hg] [facility] BMI (Body Mass Index) 2024-02-15 00:00:00 30.6 kg/m2 [facility] Height 2024-02-15 00:00:00 60 [in_i] [facility] Body Weight 2024-02-15 00:00:00 156.9 [lb_av] [facility] BP Systolic 2024-02-01 00:00:00 113 mm[Hg] [facility] Body Weight 2024-02-01 00:00:00 157.3 [lb_av] [facility] BMI (Body Mass Index) 2024-02-01 00:00:00 30.7 kg/m2 [facility] BP Diastolic 2024-02-01 00:00:00 81 mm[Hg] [facility] Height 2024-02-01 00:00:00 60 [in_i] [facility] BP Systolic 2024-01-31 00:00:00 127 mm[Hg] [facility] Body Weight 2024-01-31 00:00:00 159.2 [lb_av] [facility] BMI (Body Mass Index) 2024-01-31 00:00:00 31.1 kg/m2 [facility] Height 2024-01-31 00:00:00 60 [in_i] [facility] BP Diastolic 2024-01-31 00:00:00 75 mm[Hg] [facility] Systolic blood pressure 2024-01-11 16:12:00 116 mm[Hg] [facility] Diastolic blood pressure 2024-01-11 16:12:00 79 mm[Hg] [facility] Heart rate 2024-01-11 16:12:00 85 /min [facility] Body temperature 2024-01-11 16:12:00 36.61 Shelly [facility] Respiratory rate 2024-01-11 16:12:00 18 /min [facility] Body height 2024-01-11 16:12:00 154.9 cm [facility] Body weight 2024-01-11 16:12:00 71.532 kg [facility] BMI 2024-01-11 16:12:00 29.80 kg/m2 [facility] Oxygen saturation in Arterial blood by Pulse oximetry 2024-01-11 16:12:00 99 /min [facility] Systolic blood pressure 2023-10-24 19:18:00 119 mm[Hg] [facility] Diastolic blood pressure 2023-10-24 19:18:00 75 mm[Hg] [facility] Heart rate 2023-10-24 19:18:00 98 /min [facility] Body temperature 2023-10-24 19:18:00 37.17 Shelly [facility] Respiratory rate 2023-10-24 19:18:00 16 /min [facility] Body weight 2023-10-24 19:18:00 70.308 kg [facility] BMI 2023-10-24 19:18:00 31.31 kg/m2 [facility] Oxygen saturation in Arterial blood by Pulse oximetry 2023-10-24 19:18:00 97 /min [facility] Systolic blood pressure 2023-02-28 13:12:00 123 mm[Hg] [facility] Diastolic blood pressure 2023-02-28 13:12:00 88 mm[Hg] [facility] Heart rate 2023-02-28 13:12:00 91 /min [facility] Body temperature 2023-02-28 13:12:00 36.83 Shelly [facility] Respiratory rate 2023-02-28 13:12:00 18 /min [facility] Body height 2023-02-28 13:12:00 149.9 cm [facility] Body weight 2023-02-28 13:12:00 66.395 kg [facility] BMI 2023-02-28 13:12:00 29.56 kg/m2 [facility] BP Diastolic 2022-11-02 00:00:00 72 mm[Hg] [facility] Height 2022-11-02 00:00:00 64 [in_i] [facility] BMI (Body Mass Index) 2022-11-02 00:00:00 25 kg/m2 [facility] BP Systolic 2022-11-02 00:00:00 108 mm[Hg] [facility] Body Weight 2022-11-02 00:00:00 145.4 [lb_av] [facility] BP Diastolic 2022-10-12 00:00:00 83 mm[Hg] [facility] Height 2022-10-12 00:00:00 64 [in_i] [facility] BMI (Body Mass Index) 2022-10-12 00:00:00 24.6 kg/m2 [facility] BP Systolic 2022-10-12 00:00:00 114 mm[Hg] [facility] Body Weight 2022-10-12 00:00:00 143.3 [lb_av] [facility] BP Diastolic 2022-09-12 00:00:00 79 mm[Hg] [facility] Height 2022-09-12 00:00:00 64 [in_i] [facility] BMI (Body Mass Index) 2022-09-12 00:00:00 25.6 kg/m2 [facility] BP Systolic 2022-09-12 00:00:00 119 mm[Hg] [facility] Body Weight 2022-09-12 00:00:00 148.9 [lb_av] [facility] Systolic blood pressure 2022-07-07 20:00:00 107 mm[Hg] [facility] Diastolic blood pressure 2022-07-07 20:00:00 67 mm[Hg] [facility] Heart rate 2022-07-07 20:00:00 74 /min [facility] Body temperature 2022-07-07 20:00:00 36.44 Shelly [facility] Respiratory rate 2022-07-07 20:00:00 18 /min [facility] Body height 2022-07-07 20:00:00 149.9 cm [facility] Body weight 2022-07-07 20:00:00 64.921 kg [facility] BMI 2022-07-07 20:00:00 28.91 kg/m2 [facility] Procedures Procedure Date / Time Performed Performing Clinician Source POCT URINALYSIS W/O SPECIFIC GRAVITY 2025-02-16 21:18:00 Altagracia Whitley [facility] SCANNED LAB RESULTS 2025-01-20 16:12:11 Doctor Tammy mao, [place] [facility] <14 WEEKS US LIMITED 2025-01-16 19:45:06 Jad Padron [facility] POCT URINALYSIS W/O SPECIFIC GRAVITY 2025-01-16 18:03:00 Jad Padron [facility] SCANNED LAB RESULTS 2025-01-15 17:40:23 Doctor Tammy mao, [place] [facility] GLUCOSE 1 HOUR POST PRANDIAL 2024-12-18 18:18:00 Altagracia Whitley [facility] CBC WITH DIFF 2024-12-18 18:18:00 Altagracia Whitley [facility] HB ABO GROUPING 2024-12-18 18:18:00 Altagracia Whitley [facility] HIV 1/2 AG-AB WITH REFLEX 2024-12-18 18:18:00 Cedric Whitley [facility] PROGESTERONE, LEVEL 2024-12-18 18:18:00 Altagracia Whitley [facility] RUBELLA SCREEN IGG 2024-12-18 18:18:00 Altagracia Whitley [facility] VZV ANTIBODY SCREEN 2024-12-18 18:18:00 Altagracia Whitley [facility] HEPATITIS B SURFACE ANTIGEN 2024-12-18 18:18:00 Altagracia Whitley [facility] HCV ANTIBODY 2024-12-18 18:18:00 Altagracia Whitley [facility] ADC OR ANTHONY ONLY - RPR 2024-12-18 18:18:00 Cedric Whitley [facility] ANTIPHOSPHOLIPID ANTIBODY EVALUATION-LT BLUE 2024-12-18 18:18:00 Altagracia Whitley [facility] ANTIPHOSPHOLIPID ANTIBODY EVALUATION-SST 2024-12-18 18:18:00 Altagracia Whitley [facility] LUPUS ANTICOAGULANT REFLEXIVE PANEL 2024-12-18 18:18:00 Altagracia Whitley [facility] US OB TRANSVAGINAL 2024-12-18 17:58:35 Altagracia Whitley [facility] POCT TEST 2024-12-18 16:26:00 Altagracia Whitley [facility] POCT URINALYSIS W/O SPECIFIC GRAVITY 2024-12-18 16:26:00 Altagracia Whitley [facility] HIV 1/2 AG-AB WITH REFLEX 2024-11-18 20:06:00 Beatriz Mercer [facility] SYPHILIS IGG/IGM 2024-11-18 20:06:00 Shelby Mercer [facility] GALV ONLY - VAGINAL PATHOGENS BY NUCLEIC ACID TESTING 2024-11-18 20:02:00 Shelby Mercer [facility] POCT TEST 2024-11-18 19:52:00 Shelby Mercer [facility] ULTRASOUND, UTERUS REAL TIME WITH IMAGE DOCUMENTAITON, TRANSVAGINAL 2024-01-31 00:00:00 [facility] ULTRASOUND, UTERUS REAL TIME WITH IMAGE DOCUMENTAITON, TRANSVAGINAL 2024-01-23 00:00:00 [facility] POCT URINALYSIS 2024-01-11 00:00:00 Radha James [facility] POCT TEST 2024-01-11 00:00:00 Gwendolyn James [facility] POCT TEST 2023-10-24 19:23:00 Gwendolyn James [facility] GALV ONLY - VAGINAL PATHOGENS BY NUCLEIC ACID TESTING 2023-10-24 19:20:00 Radha James [facility] POCT URINALYSIS 2023-10-24 19:19:00 Radha James [facility] ASSIGNMENT OF BENEFITS 2023-10-24 19:09:13 Docto r Unassigned, [place] [facility] CBC WITH DIFF 2023-02-28 13:55:00 Ena Small [facility] GLYCOSYLATED HEMOGLOBIN (A1C) 2023-02-28 13:55:00 Ena Small [facility] HCV ANTIBODY 2023-02-28 13:55:00 Ena Small [facility] GC & CHLAMYDIA AMPLIFIED ASSAY 2023-02-28 13:55:00 Ena Small [facility] GALV ONLY - VAGINAL PATHOGENS BY NUCLEIC ACID TESTING 2023-02-28 13:55:00 Ena Small [facility] HIV 1/2 AG-AB WITH REFLEX 2023-02-28 13:55:00 Ena Burgos [facility] SYPHILIS IGG/IGM 2023-02-28 13:55:00 Ena Small [facility] ASSIGNMENT OF BENEFITS 2023-02-28 12:47:02 Docto r Unassigned, [place] [facility], transvaginal 2022-11-16 00:00:00 [facility] REFERRAL- REQUEST/RESPONSE 2022-10-14 06:01:00 D octor Unassigned, [place] [facility], transvaginal 2022-09-12 00:00:00 [facility] POCT TEST 2022-07-07 20:02:00 Meet Hicks [facility] Salpingectomy, Laparoscopic (Surg) [facility] Plan of Care Planned Activity Planned Date Details Comments Source Diagnostic Test Pending 2024-02-15 00:00:00 urinalysis, dipstick [code = urinalysis, dipstick] [facility] Diagnostic Test Pending 2024-02-15 00:00:00 wet mount, vaginal [code = wet mount, vaginal] [facility] Instructions [facility] dical Group Encounters Start Date/Time End Date/Time Encounter Type Admission Type Attending Clinicians Care Facility Care Department Encounter ID Source 2022-10-12 10:36:13 Outpatient [facility] [id number] [facility] 2025-03-17 12:30:00 2025-03-17 12:30:00 Outpatient R JAD PADRON [facility] [id number] [facility] 2025-03-13 14:00:00 2025-03-13 14:00:00 Outpatient R [facility] [id number] [facility] 2025-02-17 00:00:00 2025-02-18 13:39:32 Telephone Altagracia Whitley [facility] 1.2.840.114 350.1.13.10 4.2.7.2.686 [id number] [facility] 2025-02-16 16:45:00 2025-02-16 17:00:00 Extruder Visit Pob, Adc Lab Main WhitleyStarrcharito Champagne Pob, Adc Lab Main [facility] 1.2840.114 350.1.13.10 4.2.7.2.686 [id number] [facility] 2025-02-16 16:45:00 2025-02-16 16:45:00 Outpatient R STARR WHITLEYALTAGRACIA MURRAY [facility] [id number] [facility] 2025-02-16 16:00:00 2025-02-16 16:37:54 Routine Visit Whitley Altagracia Champagne [facility] 1.2840.114 350.1.13.10 4.2.7.2.686 [id number] [facility] 2025-01-06 00:00:00 2025-02-07 18:19:08 Patient Secure Msg Starr Whitleycharito Champagne [facility] 1.2.840.114 350.1.13.10 4.2.7.2.686 [id number] 134 [id number] [facility] 2025-01-30 00:00:00 2025-01-30 10:33:27 Telephone Altagracia Whitley Ihsan [facility] 1.2.840.114 350.1.13.10 4.2.7.2.686 [id number] 134 [id number] [facility] 2025-01-30 00:00:00 2025-01-30 08:40:21 Telephone Altagracia Whitley [facility] 1.2.840.114 350.1.13.10 4.2.7.2.686 [id number] 134 [id number] [facility] 2025-01-29 18:20:00 2025-01-29 18:20:00 Outpatient R [facility] [id number] [facility] 2025-01-20 00:00:00 2025-01-21 02:04:41 Orders Only Doctor Unassigned, [place] Doctor Unassigned, [place] [facility] 1.2.840.114 350.1.13.10 4.2.7.2.686 [id number] [facility] 2025-01-15 00:00:00 2025-01-17 02:04:33 Orders Only Doctor Unassigned, [place] Doctor Unassigned, [place] [facility] 1.2.840.114 350.1.13.10 4.2.7.2.686 [id number] [facility] 2025-01-16 12:45:00 2025-01-16 14:03:09 Outpatient R JAD PADRON [facility] [id number] [facility] 2025-01-16 12:45:00 2025-01-16 14:03:09 Routine Visit Jad Padron [facility] 1..840.114 350.1.13.10 4.2.7.2.686 [id number] 134 [id number] [facility] 2025-01-16 08:45:00 2025-01-16 08:45:00 Outpatient R JAD PADRON [facility] [id number] [facility] 2025-01-13 00:00:00 2025-01-13 13:28:40 Telephone [facility] 1..840.114 350.1.13.10 4.2.7.2.686 [id number] 134 [id number] [facility] 2025-01-05 08:45:00 2025-01-05 08:45:00 Outpatient R ALTAGRACIA WHITLEY VIEN [facility] [id number] [facility] 2025-01-01 08:15:00 2025-01-01 08:15:00 Outpatient R [facility] [id number] [facility] 2024-12-19 00:00:00 2024-12-19 16:45:15 Telephone [facility] 1.2.840.114 350.1.13.10 4.2.7.2.686 [id number] 134 [id number] [facility] 2024-12-19 00:00:00 2024-12-19 14:07:19 Telephone Altagracia Whitley [facility] 1.2.840.114 350.1.13.10 4.2.7.2.686 [id number] 134 [id number] [facility] 2024-12-18 11:15:00 2024-12-18 12:34:43 Outpatient R ALTAGRACIA WHITLEY [facility] [id number] [facility] 2024-12-18 11:15:00 2024-12-18 12:34:43 Extruder Visit 2, Adc Lab Altagracia Whitley 2, Adc Lab [facility] 1.2.840.114 350.1.13.10 4.2.7.2.686 [id number] [facility] 2024-12-18 10:00:00 2024-12-18 10:54:04 Initial Visit Altagracia Whitley [facility] 1.2.840.114 350.1.13.10 4.2.7.2.686 [id number] [facility] 2024-12-09 07:30:00 2024-12-09 07:30:00 Outpatient R STEPHANIE HICKS [facility] [id number] [facility] 2024-12-05 18:26:00 2024-12-05 18:28:00 Emergency X MARCUS MCKEON JOSEPH [facility] ERT [id number] [facility] 2024-12-05 18:26:00 2024-12-05 18:28:00 Emergency Oanh Marcus Bairon [facility] 1..114 350.1.13.10 4.2.7.2.686 [id number] [facility] 2024-12-04 12:15:00 2024-12-04 12:15:00 Outpatient R ENA SMALL [facility] [id number] [facility] 2024-12-02 07:30:00 2024-12-02 07:30:00 Outpatient R [facility] [id number] [facility] 2024-12-02 07:00:00 2024-12-02 07:00:00 Outpatient R [facility] [id number] [facility] 2024-11-19 00:00:00 2024-11-19 13:57:55 Case Management Shelby Mercer 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 [facility] 1..114 350.1.13.10 4.2.7.2.686 [id number] [facility] 2024-11-18 13:00:00 2024-11-18 14:02:40 Outpatient R SHELBY MERCER [facility] [id number] [facility] 2024-11-18 13:00:00 2024-11-18 14:02:40 Office Visit Shelby Mercer 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 [facility] 1..114 350.1.13.10 4.2.7.2.686 [id number] 107 [id number] [facility] 2024-09-15 00:00:00 2024-09-15 09:07:09 Stephanie Zayas 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 [facility] 1.840.114 350.1.13.10 4.2.7.2.686 [id number] [facility] 2024-09-15 00:00:00 2024-09-15 09:04:53 Refill Stephanie Hicks 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 [facility] 1.2.840.114 350.1.13.10 4.2.7.2.686 [id number] 107 [id number] [facility] 2024-09-14 00:00:00 2024-09-15 07:57:34 Refill Stephanie Hicks 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 [facility] 1.2.840.114 350.1.13.10 4.2.7.2.686 [id number] 107 [id number] [facility] 2024-09-02 09:45:00 2024-09-02 09:45:00 Outpatient R STEPHANIE HICKS [facility] [id number] [facility] 2024-05-16 00:00:00 2024-05-16 15:58:25 Telephone Ena Small 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 [facility] CHILD [facility] 1.2.840.114 350.1.13.10 4.2.7.2.686 [id number] 107 [id number] [facility] 2024-05-15 00:00:00 2024-05-15 07:53:35 Case Management Ena Small 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 1.2.840.114 350.1.13.10 4.2.7.2.686 [id number] [facility] 2024-05-13 12:45:00 2024-05-13 13:28:19 Outpatient R STEPHANIE HICKS [facility] [id number] [facility] 2024-05-13 12:45:00 2024-05-13 13:00:00 Office Visit Stephanie Hicks 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 [facility] CHILD [facility] 1.2.840.114 350.1.13.10 4.2.7.2.686 [id number] [facility] 2024-04-10 15:15:00 2024-04-10 15:15:00 Outpatient SHELBY MAO [facility] [id number] [facility] 2024-04-08 21:43:00 2024-04-09 01:18:00 Emergency Flor Anderson [facility] [id number] [facility] 2024-02-15 00:00:00 2024-02-15 00:00:00 Elise Hernandez MD: [address] [place] [address], [address], [place] [id number] , Ph. [phone] [facility] [id number] [facility] 2024-02-01 14:23:00 2024-02-01 14:23:00 Outpatient ELISE IRBY [facility] [id number] [facility] 2024-02-01 00:00:00 2024-02-01 00:00:00 Elise Hernandez MD: [address] [place] [address], [address], [place] [id number] , Ph. [phone] [facility] [id number] [facility] 2024-01-31 15:00:00 2024-01-31 15:00:00 Outpatient ELISE IRBY [facility] [id number] [facility] 2024-01-31 00:00:00 2024-01-31 00:00:00 Elise Hernandez MD: [address] [place] [address], [address], [place] [address] , Ph. [phone] [facility] [id number] [facility] 2024-01-29 00:00:00 2024-01-29 00:00:00 Outpatient White_M [facility] [id number] [facility] 2024-01-25 14:19:00 2024-01-25 14:19:00 Outpatient JANE CHARLES [facility] [id number] [facility] 2024-01-23 09:29:00 2024-01-23 09:29:00 Outpatient JANE CHARLES [facility] [id number] [facility] 2024-01-23 00:00:00 2024-01-23 00:00:00 Jane Titus VACUUM COOKER OPERATOR-BC: [address] [facility], [address], [place] [address] , Ph. [phone] White_M [facility] [id number] [facility] 2024-01-22 08:15:00 2024-01-22 08:15:00 Outpatient ENA CONTEH [facility] [id number] [facility] 2024-01-16 00:00:00 2024-01-16 00:00:00 Outpatient White_M [facility] [id number] [facility] 2024-01-11 14:00:00 2024-01-11 14:00:00 Outpatient Kinsey SANCHEZ, ATTENDING [facility] [id number] [facility] 2024-01-11 11:00:00 2024-01-11 11:20:14 Outpatient RADHA DYE [facility] [id number] [facility] 2024-01-11 11:00:00 2024-01-11 11:20:14 Urgent Care Radha James, Attending [facility] 1.2.840.114 350.1.13.10 4.2.7.2.686 [id number] [facility] 2023-10-24 13:00:00 2023-10-24 13:27:23 Outpatient RADHA DYE [facility] [id number] [facility] 2023-10-24 13:00:00 2023-10-24 13:27:23 Urgent Care Radha James Unknown, Attending [facility] 1.114 350.1.13.10 4.2.7.2.686 [id number] [facility] 2023-10-24 00:00:00 2023-10-24 00:00:00 Orders Only Doctor Unassigned, [place] [facility] 1.114 350.1.13.10 4.2.7.2.686 [id number] [facility] 2023-04-23 13:15:00 2023-04-23 13:15:00 Outpatient R STEPHANIE HICKS [facility] [id number] [facility] 2023-04-02 14:30:00 2023-04-02 14:30:00 Outpatient R IVY MONTEJO [facility] [id number] [facility] 2023-03-31 00:00:00 2023-03-31 00:00:00 Patient Secure Msg Ena Small 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 [facility] 1..114 350.1.13.10 4.2.7.2.686 [id number] 107 [id number] [facility] 2023-03-02 00:00:00 2023-03-02 00:00:00 Case Management Ena Small 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 [facility] 1..114 350.1.13.10 4.2.7.2.686 [id number] 107 [id number] [facility] 2023-03-02 00:00:00 2023-03-02 00:00:00 Telephone Stephanie Hicks 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 [facility] 1.2.840.114 350.1.13.10 4.2.7.2.686 [id number] 107 [id number] [facility] 2023-03-02 00:00:00 2023-03-02 00:00:00 Patient Secure Msg Ena Small 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 [facility] 1.2.840.114 350.1.13.10 4.2.7.2.686 [id number] 107 [id number] [facility] 2023-02-28 07:45:00 2023-02-28 08:57:53 Outpatient ENA CONTEH [facility] [id number] [facility] 2023-02-28 07:45:00 2023-02-28 08:57:53 Office Visit Ena Small 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 [facility] 1.2.840.114 350.1.13.10 4.2.7.2.686 [id number] [facility] 2023-02-28 00:00:00 2023-02-28 00:00:00 Orders Only Doctor Unassigned, [place] [facility] 1.2.840.114 350.1.13.10 4.2.7.2.686 [id number] [facility] 2023-01-30 14:45:00 2023-01-30 14:45:00 Outpatient R ENA SMALL [facility] [id number] [facility] 2022-12-19 14:30:00 2022-12-19 14:30:00 Outpatient VELIA BAINS [facility] [id number] [facility] 2022-11-16 00:00:00 2022-11-16 00:00:00 Outpatient Jose Raul FONTANEZ [id number] [facility] 2022-11-16 00:00:00 2022-11-16 00:00:00 BISHOP Gary-BC: [address], [place] [address] , Ph. [phone] [facility] [id number] [facility] 2022-11-02 15:26:00 2022-11-02 15:26:00 Outpatient JANE CHARLES [facility] [id number] [facility] 2022-11-02 00:00:00 2022-11-02 00:00:00 Jane TitusSKYLARP-BC: [address] [facility] [address], [place] [address] , Ph. [phone] [facility] [id number] [facility] 2022-10-14 00:00:00 2022-10-14 00:00:00 Orders Only Doctor Unassigned, [place] [facility] 1.2.840.114 350.1.13.10 4.2.7.2.686 [id number] [facility] 2022-10-12 00:00:00 2022-10-12 00:00:00 Outpatient White_M [facility] [id number] [facility] 2022-10-12 00:00:00 2022-10-12 00:00:00 Outpatient White_M [facility] [id number] [facility] 2022-10-12 00:00:00 2022-10-12 00:00:00 Jane Titus VACUUM COOKER OPERATOR-: [address] [facility] [address], [place] [address] , Ph. [phone] [facility] [id number] [facility] 2022-10-06 09:00:00 2022-10-06 09:00:00 Outpatient STEPHANIE BAKER [facility] [id number] [facility] 2022-09-12 15:04:00 2022-09-12 15:04:00 Outpatient JANE CHARLES [facility] [id number] [facility] 2022-09-12 00:00:00 2022-09-12 00:00:00 Outpatient Jose Raul FONTANEZ [facility] [id number] [facility] 2022-09-12 00:00:00 2022-09-12 00:00:00 Jane Ariela VACUUM COOKER OPERATOR-BC: [address] [facility] [address], [place] [address] , Ph. [phone] MM[facility] - OBGYN [id number] [facility] 2022-07-07 14:45:00 2022-07-07 15:27:14 Office Visit Stephanie Hicks 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 [facility] ..840.114 [id number] [facility] 2022-07-07 14:45:00 2022-07-07 15:27:14 Outpatient R STEPHANIE HICKS [facility] [id number] [facility] 2022-07-07 14:45:00 2022-07-07 14:45:00 Outpatient R STEPHANIE HICKS [facility] [id number] [facility] 2022-07-07 08:15:00 2022-07-07 08:15:00 Outpatient R RICHARD AMAYA [facility] [id number] [facility] 2022-06-27 00:00:00 2022-06-27 00:00:00 Patient Secure Msg Stephanie Hicks 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 [facility] ..840.114 [id number] [facility] 2022-06-21 10:30:00 2022-06-21 11:49:35 Office Visit Stephanie Hicks 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 [facility] 1..840.114 [id number] [facility] 2022-06-21 10:30:00 2022-06-21 11:49:35 Outpatient R SILVINOALFREDITOSTEPHANIE [facility] [id number] [facility] 2022-06-21 10:30:00 2022-06-21 10:30:00 Outpatient R SILVINOALFREDITOSTEPHANIE [facility] [id number] [facility] 2022-06-19 10:15:00 2022-06-19 10:15:00 Outpatient R SILVINOALFREDITOSTEPHANIE [facility] [id number] [facility] 2022-06-16 14:00:00 2022-06-16 14:00:00 Outpatient R JERRYMARITOALFREDITO STEPHANIE [facility] [id number] [facility] 2022-06-16 00:00:00 2022-06-16 00:00:00 Telephone Jerome Hicksola Beatriz 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 [facility] 1..840.114 350.1.13.10 4.2.7.2.686 [id number] 107 [id number] [facility] 2022-04-25 08:15:00 2022-04-25 08:15:00 Outpatient R SILVINOALFREDITOSTEPHANIE [facility] [id number] [facility] 2022-04-18 14:15:00 2022-04-18 14:15:00 Outpatient R JERRYMARITOALFREDITO STEPHANIE [facility] [id number] [facility] 2022-04-14 00:00:00 2022-04-14 00:00:00 Telephone Jerome Hicksola Beatriz 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 [facility] 1..840.114 350.1.13.10 4.2.7.2.686 [id number] 107 [id number] [facility] 2022-04-14 00:00:00 2022-04-14 00:00:00 Patient Secure Msg Stephanie Hicks OHCHRISTIN TRAINING PROJECT MANAGER [facility] 1.2.840.114 350.1.13.10 4.2.7.2.686 [id number] 107 [id number] [facility] 2022-04-04 00:00:00 2022-04-04 00:00:00 Patient Secure Msg Stephanie Hicks 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 [facility] 1.2.840.114 350.1.13.10 4.2.7.2.686 [id number] 107 [id number] [facility] 2022-04-03 00:00:00 2022-04-03 00:00:00 Patient Secure Msg Stephanie Hicks 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 [facility] 1.2.840.114 350.1.13.10 4.2.7.2.686 [id number] 107 [id number] [facility] 2022-04-03 00:00:00 2022-04-03 00:00:00 Telephone Stephanie Hicks 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 [facility] 1.2.840.114 350.1.13.10 4.2.7.2.686 [id number] 107 [id number] [facility] 2022-03-31 16:00:00 2022-03-31 16:29:52 Outpatient R STEPHANIE HICKS [facility] [id number] [facility] 2022-03-31 16:00:00 2022-03-31 16:29:52 Office Visit Jerome Hicksola Beatriz 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 [facility] 1.2.840.114 350.1.13.10 4.2.7.2.686 [id number] 107 [id number] [facility] 2022-03-31 00:00:00 2022-03-31 00:00:00 Orders Only Doctor Unassigned, [place] [facility] 1.840.114 350.1.13.10 4.2.7.2.686 [id number] [facility] 2022-01-30 13:00:00 2022-01-30 13:00:00 Outpatient R KARLA BURRELL [facility] [id number] [facility] 2021-11-12 00:00:00 2021-11-12 00:00:00 Patient Secure Msg Doctor Unassigned, [place] [facility] 1.840.114 350.1.13.10 4.2.7.2.686 [id number] [facility] 2021-11-11 14:00:00 2021-11-11 14:00:00 Outpatient R STEPHANIE HICKS [facility] [id number] [facility] 2021-11-11 14:00:00 2021-11-11 14:00:00 Outpatient R STEPHANIE HICKS [facility] [id number] [facility] 2021-10-28 13:45:00 2021-10-28 14:59:43 Outpatient R STEPHANIE HICKS [facility] [id number] [facility] 2021-10-28 13:45:00 2021-10-28 14:59:43 Office Visit Stephanie Hicks 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 [facility] 1.840.114 350.1.13.10 4.2.7.2.686 [id number] 107 [id number] [facility] 2021-05-25 00:00:00 2021-05-25 00:00:00 Telephone Stephanie Hicks 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 [facility] 1.840.114 350.1.13.10 4.2.7.2.686 [id number] 107 [id number] [facility] 2021-05-24 15:15:00 2021-05-24 15:15:00 Outpatient R STEPHANIE HICKS [facility] [id number] [facility] 2021-05-11 16:00:00 2021-05-11 16:00:00 Outpatient R STEPHANIE HICKS [facility] [id number] [facility] 2021-04-26 00:00:00 2021-04-26 00:00:00 Telephone Stephanie Hicks 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 [facility] 1.0.114 350.1.13.10 4.2.7.2.686 [id number] 107 [id number] [facility] 2021-04-14 13:45:00 2021-04-14 13:45:00 Outpatient P [facility] [id number] [facility] 2021-04-05 15:45:00 2021-04-05 15:45:00 Outpatient R STEPHANIE HICKS [facility] [id number] [facility] 2021-04-04 00:00:00 2021-04-04 00:00:00 Patient Secure Msg Doctor Unassigned, [place] 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 1.0.114 350.1.13.10 4.2.7.2.686 [id number] 107 [id number] [facility] 2021-03-30 00:00:00 2021-03-30 00:00:00 Patient Secure Msg Doctor Unassigned, [place] [facility] 1.0.114 350.1.13.10 4.2.7.2.686 [id number] [facility] 2021-03-25 00:00:00 2021-03-25 00:00:00 Telephone Stephanie Hicks 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 [facility] 1.0.114 350.1.13.10 4.2.7.2.686 [id number] 107 [id number] 2021-03-25 00:00:00 2021-03-25 00:00:00 Telephone Stephanie Hicks 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 [facility] 1.2.840.114 350.1.13.10 4.2.7.2.686 [id number] 107 [id number] [facility] 2021-03-24 10:30:23 2021-03-24 10:47:41 [facility] 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 [facility] 1.2840.114 350.1.13.10 4.2.7.2.686 [id number] 107 [id number] [facility] 2021-03-24 10:30:00 2021-03-24 10:30:00 Outpatient R [facility] [id number] [facility] 2021-03-24 00:00:00 2021-03-24 00:00:00 Patient Secure Msg Doctor Unassigned, [place] [facility] 1.2840.114 350.1.13.10 4.2.7.2.686 [id number] [facility] 2021-03-24 00:00:00 2021-03-24 00:00:00 Telephone Stephanie Hicks 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 [facility] 1.2840.114 350.1.13.10 4.2.7.2.686 [id number] 107 [id number] [facility] 2021-03-23 00:00:00 2021-03-23 00:00:00 Patient Secure Msg Richard Amaya R 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 [facility] 1.2.840.114 350.1.13.10 4.2.7.2.686 [id number] 107 [id number] [facility] 2021-03-22 15:10:35 2021-03-22 15:25:35 Initial Visit Stephanie Hicks 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 [facility] 1..114 350.1.13.10 4.2.7.2.686 [id number] 107 [id number] [facility] 2021-03-22 15:00:00 2021-03-22 15:00:00 Outpatient R STEPHANIE HICKS [facility] [id number] [facility] 2021-03-22 00:00:00 2021-03-22 00:00:00 Orders Only Doctor Unassigned, [place] [facility] 1..114 350.1.13.10 4.2.7.2.686 [id number] [id number] [facility] 2021-02-23 13:08:12 2021-02-23 13:35:01 Office Visit Richard Amaya 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 [facility] 1.84.114 350.1.13.10 4.2.7.2.686 [id number] 107 [id number] [facility] 2021-02-23 13:00:00 2021-02-23 13:00:00 Outpatient R RICHARD AMAYA [facility] [id number] [facility] 2021-02-16 09:30:00 2021-02-16 09:30:00 Outpatient R [facility] [id number] [facility] 2021-02-16 09:30:00 2021-02-16 09:30:00 Outpatient R RICHARD AMAYA [facility] [id number] [facility] 2021-02-14 00:00:00 2021-02-14 00:00:00 Patient Secure Msg Doctor Unassigned, [place] 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 1.84.114 350.1.13.10 4.2.7.2.686 [id number] 107 [id number] [facility] 2021-02-14 00:00:00 2021-02-14 00:00:00 Patient Secure Msg Doctor Unassigned, [place] [facility] 1.84.114 350.1.13.10 4.2.7.2.686 [id number] [facility] 2021-02-02 10:05:24 2021-02-02 11:11:24 Routine Visit Richard Amaya 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 [facility] 1.840.114 350.1.13.10 4.2.7.2.686 [id number] 107 [id number] [facility] 2021-02-02 10:00:00 2021-02-02 10:00:00 [facility] [id number] 2021-02-02 00:00:00 2021-02-02 00:00:00 Orders Only Doctor Unassigned, [place] [facility] 1.840.114 350.1.13.10 4.2.7.2.686 [id number] [facility] 2021-02-01 14:45:00 2021-02-01 14:45:00 Outpatient SHAE GRAVESLADante [facility] [id number] [facility] 2021-01-31 13:45:00 2021-01-31 13:45:00 [facility] [id number] [facility] 2021-01-11 00:00:00 2021-01-11 00:00:00 Patient Outreach Pardeep Amaro [facility] 1.840.114 350.1.13.10 4.2.7.2.686 [id number] [facility] 2021-01-10 14:26:11 2021-01-10 15:14:43 Initial Visit Richard Amaya [facility] TRAINING PROJECT MANAGER [facility] 1.840.114 350.1.13.10 4.2.7.2.686 [id number] 107 [id number] [facility] 2021-01-10 14:00:00 2021-01-10 14:00:00 Outpatient R AMAYARICHARD [facility] [id number] [facility] 2021-01-10 00:00:00 2021-01-10 00:00:00 Orders Only Doctor Unassigned, [place] [facility] 1..114 350.1.13.10 4.2.7.2.686 [id number] [id number] [facility] 2021-01-03 14:00:00 2021-01-03 14:00:00 Outpatient R [facility] [id number] [facility] 2021-01-03 12:45:00 2021-01-03 12:45:00 Outpatient R RICHARD AMAYA [facility] [id number] [facility] 2020-12-28 13:15:00 2020-12-28 13:15:00 Outpatient R RICHARD AMAYA [facility] [id number] [facility] 2020-11-29 00:00:00 2020-11-29 00:00:00 Telephone Richard Amaya 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 [facility] 1.84.114 350.1.13.10 4.2.7.2.686 [id number] 107 [id number] [facility] 2020-11-24 14:45:48 2020-11-24 15:26:28 Office Visit Richard Amaya 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 [facility] 1..114 350.1.13.10 4.2.7.2.686 [id number] 107 [id number] [facility] 2020-11-24 14:45:00 2020-11-24 14:45:00 Outpatient R RICHARD AMAYA [facility] [id number] [facility] 2020-11-24 00:00:00 2020-11-24 00:00:00 Orders Only Doctor Unassigned, [place] [facility] 1..840.114 350.1.13.10 4.2.7.2.686 [id number] [facility] 2020-09-14 13:30:00 2020-09-14 13:30:00 Outpatient RICHARD GRAVES [facility] [id number] [facility] 2020-09-13 00:00:00 2020-09-13 00:00:00 Richard Lombardo 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 [facility] 1..840.114 350.1.13.10 4.2.7.2.686 [id number] 107 [id number] [facility] 2020-09-09 15:00:00 2020-09-09 15:00:00 Outpatient RICHARD GRAVES [facility] [id number] [facility] 2020-09-01 12:45:00 2020-09-01 12:45:00 Outpatient RICHARD GRAVES [facility] [id number] [facility] 2020-09-01 12:45:00 2020-09-01 12:45:00 Outpatient RICHARD GRAVES [facility] [id number] [facility] 2020-07-29 09:45:00 2020-07-29 09:45:00 Outpatient R STEPHANIE HICKS [facility] [id number] [facility] 2020-07-29 09:45:00 2020-07-29 09:45:00 Outpatient R STEPHANIE HICKS [facility] [id number] [facility] 2020-06-08 10:45:00 2020-06-08 10:45:00 Outpatient R STEPHANIE HICKS [facility] [id number] [facility] 2020-06-08 10:45:2020-06-08 10:45:00 Outpatient R STEPHANIE HICKS [facility] [id number] [facility] 2020-04-13 11:00:57 2020-04-13 11:44:15 Office Visit Amaya Juliashelton Euceda 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 [facility] 1..840.114 350.1.13.10 4.2.7.2.686 [id number] 107 [id number] [facility] 2020-04-13 11:00:00 2020-04-13 11:00:00 Outpatient R RICHARD AMAYA [facility] [id number] [facility] 2020-04-13 09:45:00 2020-04-13 09:45:00 Outpatient IDA KNOWLES [facility] [id number] [facility] 2020-03-09 10:30:00 2020-03-09 10:30:00 Outpatient R RICHARD AMAYA [facility] [id number] [facility] 2020-03-04 00:00:00 2020-03-04 00:00:00 Telephone Ida Varela 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 [facility] ..840.114 350.1.13.10 4.2.7.2.686 [id number] 107 [id number] [facility] 2020-01-12 15:30:00 2020-01-12 15:30:00 Outpatient IDA KNOWLES [facility] [id number] [facility] 2020-01-07 00:00:00 2020-01-07 00:00:00 Patient Secure Msg Doctor Unassigned, [place] 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 [facility] ..840.114 350.1.13.10 4.2.7.2.686 [id number] 107 [id number] [facility] 2020-01-05 13:19:07 2020-01-05 14:07:46 Office Visit Stephanie Hicks 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 [facility] 1..114 350.1.13.10 4.2.7.2.686 [id number] 107 [id number] [facility] 2020-01-05 13:15:00 2020-01-05 13:15:00 Outpatient R STEPHANIE HICKS [facility] [id number] [facility] 2019-12-12 08:00:00 2019-12-12 08:00:00 Outpatient R RICHARD AMAYA [facility] [id number] [facility] 2019-12-11 00:00:00 2019-12-11 00:00:00 Patient Secure Msg Ida Varela 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 [facility] 1.2.114 350.1.13.10 4.2.7.2.686 [id number] 107 [id number] [facility] 2019-12-08 11:15:24 2019-12-08 11:43:05 Office Visit Richard Amaya [facility] TRAINING PROJECT MANAGER [facility] 1..114 350.1.13.10 4.2.7.2.686 [id number] 107 [id number] [facility] 2019-12-08 00:00:00 2019-12-08 00:00:00 Orders Only Doctor Unassigned, [place] [facility] 1..114 350.1.13.10 4.2.7.2.686 [id number] [facility] 2019-11-28 00:00:00 2019-11-28 00:00:00 Telephone Ida Varela 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 [facility] 1.2.114 350.1.13.10 4.2.7.2.686 [id number] 107 [id number] [facility] 2019-11-25 08:40:20 2019-11-25 09:30:23 Office Visit Ida Varela 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 [facility] 1.2.840.114 350.1.13.10 4.2.7.2.686 [id number] 107 [id number] [facility] 2019-11-25 00:00:00 2019-11-25 00:00:00 Telephone Ida Varela 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 [facility] 1.2.840.114 350.1.13.10 4.2.7.2.686 [id number] 107 [id number] [facility] 2019-11-05 00:00:00 2019-11-05 00:00:00 Telephone Kurt Stephanie C [facility] 1.2.840.114 350.1.13.10 4.2.7.2.686 [id number] 107 [id number] [facility] 2019-06-17 12:53:35 2019-06-17 13:48:17 Office Visit Ida Varela [facility] 1.2.840.114 350.1.13.10 4.2.7.2.686 [id number] 107 [id number] [facility] 2019-06-17 00:00:00 2019-06-17 00:00:00 Orders Only Doctor Unassigned, [place] [facility] 1.2.840.114 350.1.13.10 4.2.7.2.686 [id number] [id number] [facility] Results Test Description Test Time Test Comments Results Result Co mments Source [facility] [id number] 16:12:11Ordered by an unspecified provider.[facility] Urinalysis w/o Specific [id number] 18:03:00* Test Item Value Reference Range Interpretation Comme nts POCT PH U (test code = 3254) na 5-8 POCT U LEUK EST (test code = 3263) na Negative - Negative POCT U NIT (test code = 3262) na Negative - Negative POCT U PROT (test code = 3259) negative Negative - Negative POCT U GLU (test code = 3256) negative Negative - Negative POCT U KETONE (test code = 3258) na Negative - Negative POCT U BLD (test code = 3257) na Negative - Negative CECIL (test code = CECIL) accurate developme nt and interpretation of all internal controls Lab Interpretation (test code = 63603-6) Normal [facility] [id number] 17:40:23Ordered by an unspecified provider.[facility] Test 2024-12-18 16:27:00* Test Item Value Reference Range Interpretation Comme nts POCT PREG (test code = 1605) Positive On board controls acceptable with C Line (test code = 3574) Yes POCT PREG LOT # (test code = 3575) POCT PREG TEST DATE ( test code = 3576) [facility] Urinalysis w/o Specific [id number] 16:26:00* Test Item Value Reference Range Interpretation [...] = 3257) na Negative - Negati ve [facility] [id number] 19:52:00* Test Item Value Reference Range Interpretation Comme nts POCT PREG (test code = 1605) Negative On board controls acceptable with C Line (test code = 3574) Yes POCT PREG LOT # (test code = 3575) POCT PREG TEST DATE ( test code = 3576) [facility] [id number] 23:45:00* Test Item Value Reference Range Interpretation [...] milliInternationalunits/mL SHOULD BE CONSIDERED NEGATIVE - DUP AB/PEL/SC/[id number] 23:00:00 [facility] : 1995 Sex: FPatient Name: DEREK GARCIA Unit No: [id number] EXAMS: CPT CODE: [id number] DUP AB/PEL/SC/LTD 18533 EXAM: - US PREG EVAL 1ST TRIMTR, - US PREG UT TRANSVAGINAL, - DUP AB/PEL/SC/LTD 04/08/2024 10:57 PM CLINICAL INFORMATION: Vaginal bleeding. TECHNIQUE: Transabdominal and transvaginal shelley-scale andcolor Doppler ultrasound of the pelvis was [...] (2300) [id number] Orig Print D/T: S: 04/08/2024 (2303) [facility] NAME: DEREK GARCIA Radiology Department PHYS: Flor Zamora MD [address] : 1995 AGE: 28 SEX: F [place] [address] LOC: OfeliaERS PHONE #: [phone] EXAM DATE: 04/08/2024 STATUS: REG ER FAX #: [phone] RAD NO: Page 1 Signed Report Patient Name: TOYIN GARCIALYN Unit No: [id number] EXAMS: CPT CODE: [id number] DUP AB/PEL/SC/LTD 09746 (Continued) [facility] NAME: DEREK GARCIA Radiology Department PHYS: Apolinar Zamora MD [address] : 1995 AGE: 28 SEX: F [place], [place] [address] LOC: Alejandro.ERS PHONE #: [phone] EXAM DATE: 04/08/2024 STATUS: REG ER FAX #: [phone] RAD NO: Page 2 Signed Report- US PREG UT [id number] 23:00:00 [facility] : 1995 Sex: FPatient Name: DEREK GARCIA Unit No: [id number] EXAMS: CPT CODE: [id number] US PREG UT TRANSVAGINAL 17692 EXAM: - US PREG EVAL 1ST TRIMTR, [...] Rouse MD Technologist: Luma Watkins RDMS Probe: [id number] Trnscrbd D/ (2300) [email or web address] Orig Print D/T: S: 04/08/2024 (2304) [facility] NAME: DEREK GACRIA Radiology Department PHYS: IMELDAEmerson Flor Garces MD [address] : 1995 AGE: 28 SEX: F [place], [place] [address] LOC: F.ERS PHONE #: [phone] EXAM DATE: 04/08/2024 STATUS: REG ER FAX #: [phone] RAD NO: Page 1 Signed ReportPatient Name: DEREK GARCIA Unit No: [id number] EXAMS: CPT CODE: [id number] US PREG UT TRANSVAGINAL 13479 (Continued) [facility] [place] [facility] NAME: DEREK GARCIA Radiology Department PHYS: IMELDAEmerson Flor Garces MD [address] : 1995 AGE: 28 SEX: F [place], [place] [address] LOC: F.ERS PHONE #: [phone] EXAM DATE: 04/08/2024 STATUS: REG ER FAX #: [phone] RAD NO: Page 2 Signed Report- US PREG EVAL 1ST [id number] 23:00:00[facility] : 1995 Sex: FPatient Name: JULIODEREK Unit No: [id number] EXAMS: CPT CODE: [id number] US PREG EVAL 1ST TRIMTR [id number] EXAM: - US PREG EVAL 1ST TRIMTR, [...] Print D/T: S: 04/08/2024 (2304) [facility] NAME: DEREK GARCIA Radiology Department PHYS: [email or web address] - Flor Rouse MD [address] :1995 AGE: 28 SEX: F [place], [place] [address] LOC: JA PHONE #: [phone] EXAM DATE: 04/08/2024 STATUS: REG ER FAX #: [phone] RAD NO: Page 1 Signed Report Patient Name: DEREK GARCIA Unit No: [id number] EXAMS: CPT CODE: [id number] US PREG EVAL 1ST TRIMTR 15879 (Co ntinued) [facility] NAME: JULIODEREK Radiology Department PHYS: Tommie Flor Rouse MD [address] : 1995 AGE: 28 SEX: F [place], [place] [address] LOC: JA PHONE #: [phone] EXAM DATE: 04/08/2024 STATUS: REG ER FAX #: [phone] RAD NO: Page 2 Signed ReportMicroscopic observation [Identifier] in Vaginal fluid by Wet [id number] 16:35:18* Test Item Value Reference Range Interpretation Comme nts Clue Cells (test code = Clue Cells) negative WBCs (test code = WBCs) positive Trichomonads (test code = Trichomonads) negative Epithelial cells (test code = Epithelial cells) normal RBCs (test code = RBCs) negative [facility] Center[facility]inal[facility] macro (dipstick) panel - [id number] 14:37:04* Test Item Value Reference Range Interpretation Comme nts Leukocytes (test code = Leukocytes) Negative Nitrite (test code = Nitrite) negative Urobilinogen (test code = Urobilinogen) .2 Protein (test code = Protein) Negative pH (test code = pH) 6.0 Blood (test code = Blood) Non-Hemolyzed: Trace Specific [place] (test code = Specific [place]) 1.025 Ketone (test code = Ketone) Negative Bilirubin (test code = Bilirubin) Negative Glucose (test code = Glucose) Negative Appearance (test code = Appearance) Clear Color (test code = Color) Yellow [facility]CBC [facility] Auto Differential panel - [id number] 14:43:00 * Test Item Value Reference Range [...] NRBC# (test code = NRBC#) 0 [facility] (dipstick) panel - [id number] 14:01:32* Test Item Value Reference Range Interpretation Comme nts Leukocytes (test code = Leukocytes) Small Nitrite (test code = Nitrite) negative Urobilinogen (test code = Urobilinogen) .2 Protein (test code = Protein) 30 pH (test code = pH) 5.0 Blood (test code = Blood) Moderate Specific [place] (test code = Specific [place]) 1.025 Ketone (test code = Ketone) Large Bilirubin (test code = Bilirubin) Negative Glucose (test code = Glucose) Negative Appearance (test code = Appearance) Clear Color (test code = Color) Yellow [facility] [id number] 17:06:00* Test Item Value Reference Range Interpretation Comme [facility] HCG quantitative (test code = HCG quantitative) 8750.0 mIU/mL 0-5 H [facility] CenterUrinalysis macro (dipstick) panel - [id number] 14:17:46* Test Item Value Reference Range Interpretation Comme nts Leukocytes (test code = Leukocytes) Small Nitrite (test code = Nitrite) negative Urobilinogen (test code = Urobilinogen) .2 Protein (test code = Protein) Negative pH (test code = pH) 7.0 Blood (test code = Blood) Non-Hemolyzed: Trace Specific [place] (test code = Specific [place]) 1.015 Ketone (test code = Ketone) Negative Bilirubin (test code = Bilirubin) Negative Glucose (test code = Glucose) Negative Appearance (test code = Appearance) Clear Color (test code = Color) Yellow [facility] [id number] 18:09:00* Test Item Value Reference Range Interpretation Comme [facility] HCG quantitative (test code = HCG quantitative) 1146.0 mIU/mL 0-5 H [facility] [id number] 11:06:00* Test Item Value Reference Range Interpretation Comme [facility] HCG quantitative (test code = HCG quantitative) 466.6 mIU/mL 0-5 H [facility] CenterChoriogonadotropin.beta subunit [Units/volume] in Serum or [id number] 11:06:00* Test Item Value Reference Range Interpretation Comme [facility] HCG quantitative (test code = HCG quantitative) 466.6 mIU/mL 0-5 H [facility] Centerpregnancy test, [id number] 09:36:27* Test Item Value Reference Range Interpretation Comme nts Test (test code = Test) positive [facility] CenterUrinalysis macro (dipstick) panel - [id number] 08:33:52* Test Item Value Reference Range Interpretation Comme nts Leukocytes (test code = Leukocytes) Negative Nitrite (test code = Nitrite) negative Urobilinogen (test code = Urobilinogen) .2 Protein (test code = Protein) Negative pH (test code = pH) 6.0 Blood (test code = Blood) Non-Hemolyzed: Trace Specific [place] (test code = Specific [place]) 1.025 Ketone (test code = Ketone) Negative Bilirubin (test code = Bilirubin) Negative Glucose (test code = Glucose) Negative Appearance (test code = Appearance) Clear Color (test code = Color) Yellow [facility] CenterPONV [id number] 16:22:00* Test Item Value Reference Range Interpretation Comme nts POCT PREG (test code = 1605) Negative On board controls acceptable with C Line (test code = 3574) Yes POCT PREG LOT # (test code = 3575) POCT PREG TEST DATE ( test code = 3576) Lab Interpretation (test cod e = 94869-6) Normal [facility] Urinalysis W Specific [id number] 16:19:00* Test Item Value Reference Range Interpretation [...] Cloudy Lab Interpretation (test cod e = 72554-6) Abnormal [facility] [id number] 19:24:00* Test Item Value Reference Range Interpretation Comme nts POCT PREG (test code = 1605) Negative On board controls acceptable with C Line (test code = 3574) Yes POCT PREG LOT # (test code = 3575) POCT PREG TEST DATE (test code = 3576) CECIL (test code = CECIL) accurate developme nt and interpretation of all internal controls Lab Interpretation (test code = 69666-0) Normal [facility] [id number] 19:24:00* Test Item Value Reference Range Interpretation Comme nts POCT PREG (test code = 1605) Negative On board controls acceptable with C Line (test code = 3574) Yes POCT PREG LOT # (test code = 3575) POCT PREG TEST DATE (test code = 3576) CECIL (test code = CECIL) accurate developme nt and interpretation of all internal controls Lab Interpretation (test code = 96848-8) Normal [facility] Urinalysis W Specific [id number] 19:20:00* Test Item Value Reference Range Interpretation [...] internal controls Lab Interpretation (test code = 84222-8) Normal [facility] Urinalysis W Specific [id number] 19:20:00* Test Item Value Reference Range Interpretation [...] internal controls Lab Interpretation (test code = 37477-2) Normal [facility] ONLY - SYPHILIS [id number] 15:05:59* Test Item Value Reference Range Interpretation Comme nts Syphilis IgG/IgM (test code = 98342-2) Non-reactive Non-reactive CECIL (test code = CECIL) Non-reactive - No serologic evidence of T. pallidum infection. Cannot exclude incubating or early syphilis. Submit a second specimen in 2-4 weeks if syphilis is clinically suspected. Equivocal - Further testing to follow. Reactive - Further testing to follow. Lab Interpretation (test code = 94115-1) Normal [facility] ONLY - SYPHILIS [id number] 15:05:59* Test Item Value Reference Range Interpretation Comme nts Syphilis IgG/IgM (test code = 10046-7) Non-reactive Non-reactive CECIL (test code = CECIL) Non-reactive - No serologic evidence of T. pallidum infection. Cannot exclude incubating or early syphilis. Submit a second specimen in 2-4 weeks if syphilis is clinically suspected. Equivocal - Further testing to follow. Reactive - Further testing to follow. Lab Interpretation (test code = 52698-3) Normal [facility] ONLY - SYPHILIS [id number] 15:05:59* Test Item Value Reference Range Interpretation Comme nts Syphilis IgG/IgM (test code = 96498-4) Non-reactive Non-reactive CECIL (test code = CECIL) Non-reactive - No serologic evidence of T. pallidum infection. Cannot exclude incubating or early syphilis. Submit a second specimen in 2-4 weeks if syphilis is clinically suspected. Equivocal - Further testing to follow. Reactive - Further testing to follow. Lab Interpretation (test code = 10478-1) [facility] WITH [id number] 06:58:27* Test Item Value Reference Range Interpretation Comme nts HIV Semi-quantitative (test code = 55800-0) 0.12 Negative CECIL (test code = CECIL) Non-reactive for HIV-1 antigen and HIV-1/HIV-2 antibodies. ?No laboratory evidence of HIV infection. ?Repeat in 2-4 weeks if acute HIV infection is suspected. [facility] 1[facility]2 AG-AB WITH [id number] 06:58:27* Test Item Value Reference Range Interpretation Comme nts HIV Semi-quantitative (test code = 75476-9) 0.12 Negative CECIL (test code = CECIL) Non-reactive for HIV-1 antigen and HIV-1/HIV-2 antibodies. ?No laboratory evidence of HIV infection. ?Repeat in 2-4 weeks if acute HIV infection is suspected. [facility] 1/2 AG-AB WITH [id number] 06:58:27* Test Item Value Reference Range Interpretation Comme nts HIV Semi-quantitative (test code = 90297-3) 0.12 Negative CECIL (test code = CECIL) Non-reactive for HIV-1 antigen and HIV-1/HIV-2 antibodies. ?No laboratory evidence of HIV infection. ?Repeat in 2-4 weeks if acute HIV infection is suspected. [facility] [id number] 05:29:42* Test Item Value Reference Range Interpretation Comme nts HCV Ab (test code = 06217-2) Negative HCV Semi-Quantitative (test code = 12491-5) 0.01 [facility] [id number] 05:29:42* Test Item Value Reference Range Interpretation Comme nts HCV Ab (test code = 18885-3) Negative HCV Semi-Quantitative (test code = 35339-2) 0.01 [facility] [id number] 05:29:42* Test Item Value Reference Range Interpretation Comme nts HCV Ab (test code = 98970-3) Negative HCV Semi-Quantitative (test code = 99856-0) 0.01 [facility] AllianceGLYCOSYLATED HEMOGLOBIN (A1C)2023-03-01 05:25:25* Test Item Value Reference Range Interpretation Comme nts HGB A1C (test code = 4548-4) 5.3 % 4.0-5.7 CECIL (test code = CECIL) Reference RangesNormal: <5.7%Prediabetes: 5.7 - 6.4%Diabetes: > 6.5% Lab Interpretation (test code = 73798-8) Normal [facility] AllianceGLYCOSYLATED HEMOGLOBIN (A1C)2023-03-01 05:25:25* Test Item Value Reference Range Interpretation Comme nts HGB A1C (test code = 4548-4) 5.3 % 4.0-5.7 CECIL (test code = CECIL) Reference RangesNormal: <5.7%Prediabetes: 5.7 - 6.4%Diabetes: > 6.5% Lab Interpretation (test code = 32028-1) Normal [facility] AllianceGLYCOSYLATED HEMOGLOBIN (A1C)2023-03-01 05:25:25* Test Item Value Reference Range Interpretation Comme nts HGB A1C (test code = 4548-4) 5.3 % 4.0-5.7 CECIL (test code = CECIL) Reference RangesNormal: <5.7%Prediabetes: 5.7 - 6.4%Diabetes: > 6.5% Lab Interpretation (test code = 57905-7) Normal [facility] AllianceCBC WITH [id number] 05:04:15* Test Item Value Reference Range Interpretation [...] 32.5 g/dL 31.6-35.1 RDW-SD (test code = 08379-9) 43.6 fL 39.0-49.9 RDW-CV (test code = 788-0) 12.8 % 12.0-15.5 PLT (test code = 777-3) 326 See_Comment [Automated [employer] ge] The system which generated this result transmitted reference range: 166 - 358 10*3/?L. The reference range was not used to interpret this result as normal/abnormal. MPV (test code = 96908-4) 10.1 fL 9.5-12.9 NRBC/100 WBC (test code = 6788168265) 0.0 See_Comment [Automated Hydrostor ssage] The system which generated this result transmitted reference range: 0.0 - 10.0 /100 WBCs. The reference range was not used to interpret this result as normal/abnormal. NRBC x10^3 (test code = 1313465365) See_Comment [Automated [employer] ge] The system which generated this result transmitted reference range: 10*3/?L. The reference range was not used to interpret this result as normal/abnormal. GRAN MAT (NEUT) % (test code = 770-8) 59.5 % IMM GRAN % (test code = 2762104811) 0.10 % LYMPH % (test code = 736-9) 31.2 % MONO % (test code = 5905-5) 5.9 % EOS % (test code = 713-8) 2.8 % BASO % (test code = 706-2) 0.5 % GRAN MAT x10^3(ANC) (test code = 4203275730) 5.43 10*3/uL 1.88-7.09 IMM GRAN x10^3 (test code = 0266168776) 0.00-0.06 LYMPH x10^3 (test code = 731-0) 2.85 10*3/uL 1.32-3.29 MONO x10^3 (test code = 742-7) 0.54 10*3/uL 0.33-0.92 EOS x10^3 (test code = 711-2) 0.26 10*3/uL 0.03-0.39 BASO x10^3 (test code = 704-7) 0.05 10*3/uL 0.01-0.07 Lab Interpretation (test code = 37783-8) Abnormal [facility] WITH [id number] 05:04:15* Test Item Value Reference Range Interpretation Comme nts WBC (test code = 6690-2) 9.14 See_Comment [Automated [employer]] The system which generated this result transmitted reference range: 4.30 - 11.10 10*3/?L. The reference range was not used to interpret this result as normal/abnormal. RBC (test code = 789-8) 4.95 See_Comment [Automated [employer]] The system which generated this result transmitted [...] 32.5 g/dL 31.6-35.1 RDW-SD (test code = 36814-5) 43.6 fL 39.0-49.9 RDW-CV (test code = 788-0) 12.8 % 12.0-15.5 PLT (test code = 777-3) 326 See_Comment [Automated messa ge] The system which generated this result transmitted reference range: 166 - 358 10*3/?L. The reference range was not used to interpret this result as normal/abnormal. MPV (test code = 77498-2) 10.1 fL 9.5-12.9 NRBC/100 WBC (test code = 3479144488) 0.0 See_Comment [Automated [employer] ssage] The system which generated this result transmitted reference range: 0.0 - 10.0 /100 WBCs. The reference range was not used to interpret this result as normal/abnormal. NRBC x10^3 (test code = 6995445681) See_Comment [Automated messa ge] The system which generated this result transmitted reference range: 10*3/?L. The reference range was not used to interpret this result as normal/abnormal. GRAN MAT (NEUT) % (test code = 770-8) 59.5 % IMM GRAN % (test code = 3658540415) 0.10 % LYMPH % (test code = 736-9) 31.2 % MONO % (test code = 5905-5) 5.9 % EOS % (test code = 713-8) 2.8 % BASO % (test code = 706-2) 0.5 % GRAN MAT x10^3(ANC) (test code = 5093914008) 5.43 10*3/uL 1.88-7.09 IMM GRAN x10^3 (test code = 2553817294) 0.00-0.06 LYMPH x10^3 (test code = 731-0) 2.85 10*3/uL 1.32-3.29 MONO x10^3 (test code = 742-7) 0.54 10*3/uL 0.33-0.92 EOS x10^3 (test code = 711-2) 0.26 10*3/uL 0.03-0.39 BASO x10^3 (test code = 704-7) 0.05 10*3/uL 0.01-0.07 Lab Interpretation (test code = 08977-7) Abnormal [facility] WITH [id number] 05:04:15* Test Item Value Reference Range Interpretation [...] 32.5 g/dL 31.6-35.1 RDW-SD (test code = 04518-8) 43.6 fL 39.0-49.9 RDW-CV (test code = 788-0) 12.8 % 12.0-15.5 PLT (test code = 777-3) 326 See_Comment [Automated [employer] ge] The system which generated this result transmitted reference range: 166 - 358 10*3/?L. The reference range was not used to interpret this result as normal/abnormal. MPV (test code = 74015-2) 10.1 fL 9.5-12.9 NRBC/100 WBC (test code = 4691891296) 0.0 See_Comment [Automated [employer] ssage] The system which generated this result transmitted reference range: 0.0 - 10.0 /100 WBCs. The reference range was not used to interpret this result as normal/abnormal. NRBC x10^3 (test code = 8162095883) See_Comment [Automated [employer] ge] The system which generated this result transmitted reference range: 10*3/?L. The reference range was not used to interpret this result as normal/abnormal. GRAN MAT (NEUT) % (test code = 770-8) 59.5 % IMM GRAN % (test code = 3992393205) 0.10 % LYMPH % (test code = 736-9) 31.2 % MONO % (test code = 5905-5) 5.9 % EOS % (test code = 713-8) 2.8 % BASO % (test code = 706-2) 0.5 % GRAN MAT x10^3(ANC) (test code = 5419885447) 5.43 10*3/uL 1.88-7.09 IMM GRAN x10^3 (test code = 5813229685) 0.00-0.06 LYMPH x10^3 (test code = 731-0) 2.85 10*3/uL 1.32-3.29 MONO x10^3 (test code = 742-7) 0.54 10*3/uL 0.33-0.92 EOS x10^3 (test code = 711-2) 0.26 10*3/uL 0.03-0.39 BASO x10^3 (test code = 704-7) 0.05 10*3/uL 0.01-0.07 Lab Interpretation (test code = 42297-5) Abnormal [facility] antico[facility], [id number] 14:10:00 * Test Item Value Reference Range [...] glycoprotein 1 IgG and IgM panel - [id number] 19:14:00* Test Item Value Reference Range Interpretation Comme nts beta 2 glyco,IgG (test code = beta 2 glyco,IgG) <9 0-20 beta 2 glyco,IgA (test code = beta 2 glyco,IgA) <9 0-25 beta 2 glycoprot,IgM (test c ode = beta 2 glycoprot,IgM) <9 0-32 [facility] IgG and IgM panel - [id number] 19:14:00 * Test Item Value Reference Range [...] [facility] CenterUrinalysis macro (dipstick) panel - [id number] 09:40:09* Test Item Value Reference Range Interpretation Comme nts Leukocytes (test code = Leukocytes) Trace Nitrite (test code = Nitrite) negative Urobilinogen (test code = Urobilinogen) .2 Protein (test code = Protein) Negative pH (test code = pH) 5.5 Blood (test code = Blood) Negative Specific [place] (test code = Specific [place]) 1.030 Ketone (test code = Ketone) Negative Bilirubin (test code = Bilirubin) Small Glucose (test code = Glucose) Negative Appearance (test code = Appearance) Cloudy Color (test code = Color) Yellow [facility] - cancer history assessment [id number] 08:33:00 * Test Item Value Reference Range Interpretation Comme [facility] - cancer history assessment result (test code = [facility] - cancer history assessment result) does not meet criteria [facility] Center[facility] + NG + TV, DNA, urine/[id number] 00:00:00* Test Item Value Reference Range Interpretation Comme nts vance - swab (test code = vance - swab) normal gardnerella (test code = gardnerella) abnormal A CT/NG (test code = CT/NG) normal trichomonas vaginalis addon - swab (test code = trichomonas vaginalis addon - swab) normal [facility] Center[facility] macro (dipstick) panel - [id number] 14:03:06* Test Item Value Reference Range Interpretation Comme nts Leukocytes (test code = Leukocytes) Negative Nitrite (test code = Nitrite) negative Urobilinogen (test code = Urobilinogen) .2 Protein (test code = Protein) Negative pH (test code = pH) 6.0 Blood (test code = Blood) Negative Specific [place] (test code = Specific [place]) 1.030 Ketone (test code = Ketone) Negative Bilirubin (test code = Bilirubin) Negative Glucose (test code = Glucose) Negative Appearance (test code = Appearance) Clear Color (test code = Color) Yellow [facility] CenterPO[facility] [id number] 20:02:00* Test Item Value Reference Range Interpretation Comme nts POCT PREG (test code = 1605) Negative On board controls acceptable with C Line (test code = 3574) Yes POCT PREG LOT # (test code = 3575) POCT PREG TEST DATE ( test code = 3576) [facility] Notes Date/Time Note Provider Source 2025-02-18 13:39:01 Name and verified. Pt advised of MsAfp negative. Verbalized understanding. OLYA CHEN RN 02/18/2025 1:39 PM Olya Chen [facility] 2025-02-18 11:31:26 Derek Garcia is a 29 year old female Patient stated that she would like to go over results. Please assist and thank you. Mami Telles [facility] 2025-02-17 15:50:25 Name and verified. Pt advised that result has not been reviewed by provider. Once reviewed, we will call her. Verbalized understanding. OLYA CHEN RN 02/17/2025 3:[address] [facility] 2025-02-17 15:09:40 Derek Garcia is a 29 year old female ob patient called states she has concerns regarding her blood work. Asking to speak with the nurse or DrEmerson Today. Would like a call back. Nicki Christianson [facility] 2025-02-16 16:45:00 Images from the original note were not included. Pt verified she is 16 weeks. Venipuncture collection performed by clean technique on the right anticubitus. Total of 1 attempts were made. Slight pressure and a bandage/dressing were applied to the site(s). The patient experienced no complications. The following specimens were processed according to instructions and sent to [facility] per lab order on 02/16/2025: LT BLUE SST 1 RED LAV PPT DK GREEN (LiHep) DK GREEN (SodH) SHELLEY DK BLUE (K2) DK BLUE (S) ACD Blood Culture NIPT/NTD [facility] 2025-02-16 16:00:00 Age: [age] year old GA: 16w5d Sciatic pain - Reports back pain and buttock pain that radiated down her leg. For the past 2 weeks, it was mainly on the right side and last night it was her left side. - Sciatic pain exercise discussed. - Can refer to physical therapy at next visit if still has issues History of recurrent miscarriages -Antiphospholipid syndrome labs negative - Status post vaginal progesterone History of anxiety and depression - EPDS 4. Denies SI/HI. VERONICA-7 score 7 - Continue to monitor New OB labs within normal limits except for varicella nonimmune and rubella nonimmune. Recommend vaccines Panorama low risk male Horizon negative Maternal serum AFP ordered Anatomy scan scheduled for 03/13/2025 Follow-up in 4 weeks for visit with [facility] Follow-up in 8 weeks for pedal visit with Whitley T [facility] 2025-01-30 10:28:40 0945- Name and verified. Pt [...] understanding. OLYA CHEN RN 01/30/2025 10:33 AM [facility] 2025-01-30 09:10:03 Images from the original note were not included. Pt returning the call. T La Jacinto [facility] 2025-01-30 08:35:20 LM on for pt to return call. OLYA HCEN RN 01/30/2025 8:35 AM [facility] 2025-01-19 16:28:19 Received Horizon results via fax. Stamped and will be scanned/uploaded into pt's chart. [facility] 2025-01-16 12:45:00 Age: [age] year old GA: 12w2d PLAN 1. High-risk in first trimester 2. 12 weeks gestation of - POCT Urinalysis w/o Specific [place]- Negative protein and nitrates - OB Ultrasound [...] with Dr. Whitley in 4 weeks or prn Jad Padron DNP, RESISTOR TESTING MACHINE OPERATOR-BC 01/16/2025 at 2:[address] [facility] 2025-01-13 13:27:25 Received panorama results via fax. Stamped and uploaded to chart. Patient viewed results via [employer] portal. Dick Malave RN 01/13/2025 1:28 PM Dick Malave RN [facility] 2024-12-19 16:37:58 Name and verified. Pt stated [...] understanding. OLYA CHEN RN 12/19/2024 4:44 PM INE MECHANIC Olya Chen RN [facility] 2024-12-19 16:23:40 Derek Garcia is a 29 year old female Called the clinic earlier, was prescribed progesterone. Pt calling again to talk to a nurse she states she started spotting, she is concerned and will like a call back for advice INE MECHANIC Ursula Torrez [facility] 2024-12-19 14:06:59 Patient advised per herbert Blake to be seen in 2 weeks for usg. Appointment made Dick Malave RN 12/19/2024 2:07 PM INE MECHANIC Dick Malave RN [facility] 2024-12-19 13:55:41 Returned patients call regarding [...] understanding. Dick Malave RN 12/19/2024 1:57 PM [facility] 2024-12-19 12:09:06 Derek Garcia is a 29 year old female Calling to go over test results. Pt was advised respond time frame can be up to two business days. ER Torrez [facility] 2024-12-19 11:39:48 Pt would like to speak with a nurse about results. [facility] Anita Larsen [facility] 2024-12-18 11:15:00 50 Glucola @ 1112. No issues. Pt finished @ 1112 Draw Time @ 1212. [facility] 2024-12-18 11:15:00 Images from the original note were not included. Venipuncture collection performed by clean technique on the right anticubitus. Total of 1 attempts were made. Slight pressure and a bandage/dressing were applied to the site(s). The patient experienced no complications. The following specimens were processed according to instructions and sent to [facility] per lab order on 12/18/2024: LT BLUE 3 SST 6 RED 1 LAV 2 PPT DK GREEN (LiHep) DK GREEN (SodH) SHELLEY DK BLUE (K2) DK BLUE (S) ACD Blood Culture NIPT/NTD [facility] 2024-12-18 11:15:00 Addended by: SHARIFA PAZ on: 12/18/2024 03:18 PM Modules accepted: Orders [facility] Sharifa Boyce [facility] 2024-12-18 11:15:00 Addended by: SHARIFA PAZ on: 12/18/2024 06:24 PM Modules accepted: Orders [facility] 2024-12-18 10:00:00 Age: [age] year old GA: 8w1d by reported THOMAS Nausea without vomiting -Not bothersome -Discussed sharonda [id number]-yvgcsmp as needed. 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. Expectations for weight gain this include 15-25 pounds. Encouraged to call if have any additional questions or concerns. Discussed aneuploidy and carrier screening; patient opts for panorama/Horizon. Discussed with patient that she can have HEALTHY support with her during her delivery (which is subject to change). Declined flu vaccine today Follow-up in 4 weeks for visit with [facility] Follow-up in 8 weeks for pedal visit with Whitley INE MECHANIC [facility] 2024-12-05 18:25:18 Registration called and said patient left because she was not getting and ultrasound. Patient eloped after being seen by provider. INE MECHANIC George Fajardo RN [facility] 2024-05-16 15:57:40 Called patient, notified patient positive for UTI, BV, and Yeast. Educated patient on medications, good perineal hygiene, and increasing fluids. Pt verbalized understanding. ISA GARCIA RN 05/16/2024 3:57 PM Isa Garcia RN [facility] 2024-05-16 14:34:04 Please call patient and let her know she has UTI, BV, and vaginal yeast. All erx sent. [facility] 2024-04-09 00:17:00 [facility] Hospitalist History Physical REPORT#:[id number] REPORT STATUS: Signed REPORT INITIALIZATION DATE:04/09/24 TIME: 16 PATIENT: DEREK GARCIA UNIT #: [id number] ROOM/BED: : 95 AGE: 28 SEX: F ATTEND: Flor Rouse MD ADM DT: AUTHOR: Rosaline Goss MD REPT SERVICE DT/TIME: 04/09/2416 * ALL edits or amendments must be made on the electronic/computer document * History of Present Illness HPI Chief complaint: Suspected ectopic HPI: 28 y/o presents as a self transported transport for evaluation of a suspected right ectopic . Patient presented to [facility] in [facility] with a positive test and RLQ [...] % (Auto) (14.5 - 29.7 %) 20.5 [place] % (Auto) (3.6 - 10.2 %) 6.7 Eos % (Auto) (0.0 - 3.0 %) 1.3 Baso % (Auto) (0.1 - 0.9 %) 0.3 Neut # (Auto) (K/mm3) 8.6 Lymph # (Auto) (K/mm3) 2.5 [place] # (Auto) (K/mm3) 0.8 Eos # (Auto) (K/mm3) 0.16 Baso # (Auto) (K/mm3) 0.0 Laboratory Tests 04/08 2201 Miscellaneous Maternal Serum HCG (mIU/mL) 2719 Laboratory Tests 04/08 2201 Urines Urine Color (YELLOW) YELLOW Urine Appearance (CLEAR) Slightly-Cloudy Urine pH (5 - 9) 5.0 Ur Specific [place] (1.001 - 1.035) 1.023 Urine Protein (NEG) [...] prominent vessels/vasculature within the myometrium. [facility]ression [facility]: [facility] Ebony Hall M.D. Diagnosis, Assessment Plan Problem [...] treat with the Methotrexate. at 0028 RPT #:[id number] END OF REPORT [facility] 2024-04-08 22:01:00 [facility] ([facility]) EMERGENCY PROVIDER REPORT REPORT#:[id number] REPORT STATUS: Signed DATE:04/08/24 TIME: 2200 PATIENT: DEREK GARCIA UNIT #: [id number] ROOM/BED: AGE: 28 SEX: F PCP PHYS: [...] is a G6, P0 who transferred from [facility] due to concerns of ectopic . The [...] 04/09 0118 O2 Delivery Room air 04/09 011 Temp 98.0 04/09 118 Pulse 79 04/09 0118 Resp 16 04/09 [...] % (Auto) (14.5 - 29.7 %) 20.5 [place] % (Auto) (3.6 - 10.2 %) 6.7 Eos % (Auto) (0.0 - 3.0 %) 1.3 Baso % (Auto) (0.1 - 0.9 %) 0.3 Neut # (Auto) (K/mm3) 8.6 Lymph # (Auto) (K/mm3) 2.5 [place] # (Auto) (K/mm3) 0.8 Eos # (Auto) (K/mm3) 0.16 Baso # (Auto) (K/mm3) 0.0 Miscellaneous Maternal Serum HCG (mIU/mL) 2719 Urines Urine Color (YELLOW) YELLOW Urine Appearance (CLEAR) Slightly-Cloudy Urine pH (5 - 9) 5.0 Ur Specific [place] (1.001 - 1.035) 1.023 Urine Protein (NEG) [...] Interpretation Interpreted by wy Time 2142 Re-Evaluation MDM )( Re-Evaluation/Progress #1 [...] Consultation Consultation Referral/Consult Name Rosaline Goss MD Military Source Operations Officer Called TRAINING PROJECT MANAGER Military Source Operations Officer Discussed with customer care voice consultant Requested Call Time 2349 Requested Call [...] or a call to 911. at 0523 [facility] #:[id number] END OF REPORT [facility] 2023-10-24 13:00:00 Addended by: RADHA JAMES on: 10/25/2023 03:51 PM Modules accepted: Orders [facility]
[2025-02-26 19:12] LABS: Sqamous Epithelial 20-50 /HPF (None Seen); Transitional Epithelial <5 /HPF (None Seen); Urine Bacteria <20 /HPF (<20); Urine Bilirubin NEGATIVE (Negative); Urine Blood Negative (Negative); Urine Clarity Extremely Turbid (Clear); Urine Color Yellow (Yellow); Urine Culture Reflex Order REFLEXED; Urine Glucose NEGATIVE (Negative); Urine Ketones NEGATIVE (Negative); Urine Microscopic Reflex YN ORDER UMIC; Urine Mucus 1+ /HPF (None Seen); Urine Nitrite NEGATIVE (Negative); Urine Protein TRACE (Negative); Urine RBC <5 /HPF (None Seen); Urine Urobilinogen 1+ (Normal); Urine WBC <5 /HPF (<5); Urine pH 6.5 (5.0-7.0)
--- NOTE | 2025-02-26 19:34 | RAD REPORT ---
EXAMINATION: US OB Limited, TRANSVAG OB CERVIX ASSESSMENT COMPARISON: 01/30/2025. HISTORY: [facility] MAIN VAGINAL BLEEDING Bed Name: IW3 TECHNIQUE: Real-time ultrasound was performed through the pelvis through a transabdominal approach. A transvaginal scan was also performed to better visualize the intrauterine contents and cervix. FINDINGS: There is a single living intrauterine . Fetus in breech presentation. Internal cervical os. Patent canal, with fluid opacifying proximal cervical canal measuring up to 8 i n caliber. The distal 1.2 cm of the cervical canal appeared closed. Placenta is forming anteriorly. No evidence of placenta previa. Both ovaries were not visualized. There is no free fluid in the cul-de-sac. Measurements and Calculations: Femur length 27.2mm, consistent with a sonographic age of 18 weeks, 2 days. LMP dates is not stated. heart rate: 151 BPM IMPRESSION: Single living intrauterine , with a composite sonographic age of 18 weeks, 2 days. Patent internal cervical os with patulous proximal cervical canal, concerning for cervical incompeten ce. Close obstetric follow-up for increased risk during recommended. THIS REPORT CONTAINS FINDINGS THAT MAY BE CRITICAL TO PATIENT CARE. The findings were verbally commun icated via telephone to PHI Almendarez on 02/26/2025 7:31 PM.
[2025-02-26 21:09] LABS: Absolute Eosinophils 0.1 K/uL (0-0.5); Absolute Lymphocytes (CBC) 2.4 K/uL (0.7-4.9); Absolute Monocytes 0.8 K/uL (0.1-1.3); Absolute Neutrophil 8.2 K/uL (1.8-8.0); Basophils % 0.3 % (0-1.3); Eosinophils % 1.3 % (0-4.4); Hemoglobin 11.6 g/dL (12.0-15.0); Lymphocytes % 21.1 % (15.3-44.8); MCH 30.5 pg (27.0-35.0); MCHC 34.2 g/dL (32.0-36.0); MCV 89.2 fL (80-100); Monocytes % 6.7 % (3.3-12.3); Neutrophils % 70.6 % (41.7-73.7); Nucleated Red Blood Cells % 0.1 % (0-0); Platelets 270 thou/uL (152-406); RBC Red Blood Cell Count 3.81 M/uL (3.86-4.86); Red Cell Distribution Width 13.5 % (12.1-15.2)
--- NOTE | 2025-02-26 21:19 | ER ---
Nurse's Notes [facility] Name: Beena Garcia Age: 29 yrs Sex: Female : 1995 Arrival Date: 02/26/2025 Time: 17:37 Bed 11 Private MD: Diagnosis: Threatened , cervical incompetence;18 weeks gestation of Presentation: 02/26 18:13 Chief complaint: Patient states: bright red vaginal bleeding started about an hour ago, iw is approx 18 weeks , denies pain. Coronavirus screen: At this time, the client does not indicate any symptoms associated with coronavirus-19. Ebola Screen: No symptoms or risks identified at this time. Initial Sepsis Screen: Does the patient meet any 2 criteria? No. Patient's initial sepsis screen is negative. Does the patient have a suspected source of infection? No. Patient's initial sepsis screen is negative. Risk Assessment: Do you want to hurt yourself or someone else? Patient reports no desire to harm self or others. Onset of symptoms was February 26, 2025. 18:13 Acuity: LETTY 3 iw 18:13 Method Of Arrival: Ambulatory iw ASSISTANT CURATOR: 18:14 9, Living 0, LMP 10/14/2024, unknown iw 18:49 9, Full Term 0, 8, Verified sb4 Historical: - Allergies: 18:14 Codeine (Hives); iw - PMHx: 18:14 UTI; iw - PSHx: 18:14 Ectopic x 2; L fallopian tube removed; iw - Infectious Disease History:: Denies. Screenin:00 [facility] ED Fall Risk Assessment (Adult) History of falling in the last 3 months, jb4 including since admission No falls in past 3 months (0 pts) Confusion or Disorientation No (0 pts) Intoxicated or Sedated No (0 pts) Impaired Gait No (0 pts) Mobility Assist Device Used No (0 pt) Altered Elimination No (0 pt) Score/Fall Risk Level 0 - 2 = Low Risk Oriented to surroundings, Maintained a safe environment. Abuse screen: Denies threats or abuse. Nutritional screening: No deficits noted. Tuberculosis screening: No symptoms or risk factors identified. Assessment: 21:00 General: Appears in no apparent distress. comfortable, Behavior is calm, cooperative, jb4 appropriate for age. Pain: Complains of pain in abdomen Pain does not radiate. Pain currently is 2 out of 10 on a pain scale. Neuro: Level of Consciousness is awake, alert, obeys commands, Oriented to person, place, time, situation. Cardiovascular: Patient's skin is warm and dry. Respiratory: Airway is patent Respiratory effort is even, unlabored, Respiratory pattern is regular, symmetrical. Derm: Skin is intact, Skin is pink, warm \T\ dry. Musculoskeletal: Circulation, motion, and sensation intact. Range of motion: intact in all extremities. 22:00 Reassessment: Patient appears in no apparent distress at this time. Patient and/or jb4 family updated on plan of care and expected duration. Pain level reassessed. Patient is alert, oriented x 3, equal unlabored respirations, skin warm/dry/pink. 23:52 Reassessment: Patient appears in no apparent distress at this time. Patient and/or jb4 family updated on plan of care and expected duration. Pain level reassessed. Patient is alert, oriented x 3, equal unlabored respirations, skin warm/dry/pink. 02/27 01:05 Reassessment: Patient appears in no apparent distress at this time. Patient and/or jb4 family updated on plan of care and expected duration. Pain level reassessed. Patient is alert, oriented x 3, equal unlabored respirations, skin warm/dry/pink. Vital Signs: 02/26 18:13 BP 109 / 66; Pulse 76; Resp 16; Temp 98.4; Pulse Ox 99% on R/A; Weight 77.11 kg; Height iw 5 ft. 1 in. ; Pain 0/10; 21:00 BP 122 / 82; Pulse 88; Resp 16; Pulse Ox 100% on R/A; jb4 23:52 BP 114 / 68; Pulse 90; Resp 16; Pulse Ox 100% on R/A; jb4 18:13 Body Mass Index 32.12 (77.11 kg, 154.94 cm) iw 18:13 Pain Scale: Adult iw ED Course: 17:39 Patient arrived in ED. im 17:42 Irene Izaguirre PA-C is PHCP. sb4 17:42 Yoselin Castillo MD is Attending Physician. sb4 18:14 Triage completed. iw 18:15 Arm band placed on. iw 19:03 US OB Limited In Process Unspecified. EDMS 19:03 TRANSVAG OB CERVIX ASSESSMENT In Process Unspecified. EDMS 20:56 No provider procedures requiring assistance completed. Inserted saline lock: 20 gauge jb4 in right antecubital area, using aseptic technique. Blood collected. 21:00 Patient has correct armband on for positive identification. Placed in gown. Bed in low jb4 position. Call light in reach. Side rails up X 1. Provided Education on: plan of care. 23:52 Terrance Stanton, RN is Primary Nurse. jb4 02/27 00:11 Transfer initiated \T\2324 w [facility] patti, pt accepted \T\ 2347 by Phil Calvo, hw admin approval \T\2347 by Jonathan Jeffries Pt going to \T\D ER, report called to [phone]. 01:05 Patient transferred, IV remains in place. jb4 Administered Medications: No medications were administered Medication: 02/26 21:00 VIS not applicable for this client. jb4 Outcome: 21:19 ER care complete, transfer ordered by MD. bajwa 02/27 01:05 Transferred by ground EMS to [facility], Transfer form jb4 completed. X-rays sent w/ patient. Condition: stable Discharge instructions given to patient, Instructed on the need for transfer, Demonstrated understanding of instructions, 01:10 Patient left the ED. jb4 Signatures: Dispatcher [employer] Priscila Ohara RN RN iw Bryson, James, RN RN jb4 Irene Izaguirre PA-C PACatrachito [email or web address] Annette Basilio Hailey
--- NOTE | 2025-02-26 21:19 | EDPHYS ---
Physician Documentation [facility] Name: Beena Garcia Age: 29 yrs Sex: Female : 1995 Arrival Date: 02/26/2025 Time: 17:37 Bed 11 Private MD: ED Physician Yoselin Castillo HPI: 02/26 18:48 This 29 yrs old Female presents to ER via Ambulatory with complaints of sb4 Vaginal bleeding, 18 Weeks . 18:49 The patient presents to the emergency department with vaginal bleeding, that is sb4 moderate. The estimated gestational age is 18 weeks. course: care: private OB physician, Leakage of Fluid: none appreciated, Ultrasound: the patient had an ultrasound, which was normal, Risk/complications: previous complications- 8 miscarriages or unknown etiology. Associated signs and symptoms: The patient has no apparent associated signs or symptoms. 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 ROS: 18:50 Constitutional: Negative for fever, chills, and weight loss, sb4 18:50 : Positive for vaginal bleeding, 18:50 All other systems are negative, Exam: 18:50 Constitutional: This is a well developed, well nourished patient who is awake, alert, sb4 and in no acute distress. Head/Face: Normocephalic, atraumatic. Eyes: Extra-ocular motions intact. Periorbital areas with no swelling, redness, or edema. ENT: Mucous membranes moist. Cardiovascular: Regular rate and rhythm with a normal S1 and S2. Respiratory: No increased work of breathing, no retractions or nasal flaring. Abdomen/GI: Soft, non-tender, no distension. Skin: Warm, dry with normal turgor. Normal color with no rashes, no lesions, and no evidence of cellulitis. 22:42 : Pelvic Exam: External exam: is normal, Speculum exam: no bleeding is noted, no sb4 cervicitis, os that is open, no tissue in cervix is seen, no tissue in vagina is seen, a female admissions consultant was present for the exam, Vital Signs: 18:13 BP 109 / 66; Pulse 76; Resp 16; Temp 98.4; Pulse Ox 99% on R/A; Weight 77.11 kg; Height iw 5 ft. 1 in. ; Pain 0/10; 21:00 BP 122 / 82; Pulse 88; Resp 16; Pulse Ox 100% on R/A; jb4 23:52 BP 114 / 68; Pulse 90; Resp 16; Pulse Ox 100% on R/A; jb4 18:13 Body Mass Index 32.12 (77.11 kg, 154.94 cm) iw 18:13 Pain Scale: Adult iw MDM: 17:49 Medical Screening Exam initiated sb4 22:45 Data reviewed: vital signs, nurses notes, lab test result(s), radiologic studies, I sb4 have discussed the patient's presentation/case with the attending Emergency Department Physician;. Counseling: I had a detailed discussion with the patient and/or guardian regarding the historical points, exam findings, and any diagnostic results supporting the discharge/admit diagnosis, lab results, radiology results, the need to transfer to another facility, [facility] does not immediately have the required specialist. 23:43 Management of patient was discussed with the following: Emergency Room Clinician: OBGYN at [address], recommends higher level of care at [facility]. 02/26 18:27 Order name: Basic Metabolic Panel; Complete Time: 21:51 [facility] 02/26 18:27 Order name: CBC with Diff; Complete Time: 21:10 [facility] 02/26 18:27 Order name: Test, Urine; Complete Time: 19:13 [facility] 02/26 18:27 Order name: Quantitative Hcg; Complete Time: 21:51 [facility] 02/26 18:27 Order name: UA Rfx Rick Cult if indicated; Complete Time: 21:10 [facility] 02/26 21:09 Order name: Urine Culture EDKS 02/26 18:27 Order name: US OB Limited; Complete Time: 19:36 [facility] 02/26 19:03 Order name: TRANSVAG OB CERVIX ASSESSMENT; Complete Time: 19:36 EDKS 02/26 18:27 Order name: IV Saline Lock; Complete Time: 20:56 sb4 02/26 18:27 Order name: Labs collected and sent; Complete Time: 20:56 sb4 02/26 18:27 Order name: Pelvic Exam Setup; Complete Time: 22:34 sb4 Administered Medications: No medications were administered Disposition Summary: 02/26/25 21:19 Transfer Ordered Notes[facility] Higher level of care sb4 Condition: Fair sb4 Problem: new sb4 Symptoms: are unchanged sb4 Accepting Physician: OB(02/27/25 01:10) jb4 Diagnosis - Threatened , cervical incompetence sb4 - 18 weeks gestation of sb4 Forms: - Medication Reconciliation Form sb4 - SBAR form sb4 Signatures: Dispatcher [employer] Priscila Ohara, RN RN iw Terrance Stanton RN RN jb4 Irene Izaguirre PA-C PA-C sb4 Corrections: (The following items were deleted from the chart) 18:27 18:27 OB Limited+[email or web address] ordered. EDKS EDKS 02/27 01:10 02/26 21:19 OB sb4 jb4
[2025-02-26 21:48] LABS: Anion Gap 11.5 mEq/L (5.0-15.0); Potassium 3.5 mEq/L (3.5-5.1)
[2025-02-27 01:36] VITALS: TEMP 98.4
[2025-02-27 01:38] VITALS: O2SAT 100
[2025-02-27 01:40] VITALS: BP 114/68
== END 2025-02-27 01:10 | disposition short-term general hospital (02) ==
LOC: ER 17:37
DX: O20.0 Threatened abortion (principal); O34.32 Maternal care for cervical incompetence, second trimester; Z3A.18 18 weeks gestation of pregnancy
CPT/HCPCS: 36415; 76815; 76817; 80048; 81001; 81025; 84702; 85025; 87086; 87088; 99285

== ENCOUNTER 2025-03-02 14:21 | Emergency (ER) | payer OTHER ==
--- OUTSIDE RECORDS SUMMARY | 2025-03-02 14:29 | XMS REPORT | Continuity of Care Document ---
Author Name Unknown Address [address] [facility] [address] [place] [address] [facility] Address [address] [facility] [address] [place] [address] Care Team Providers Care Physician Name Role Phone PCP, PATIENT DOES NOT HAVE A Primary Care Physic jorge Unavailable ALTAGRACIA WHITLEY Attending Clinician Unavailable ALTAGRACIA WHITLEY Attending Clinician Unavailable JAD PADRON Attending Clinician Unavailable HAMILTON ESCALERA Attending Clinician Unav HAMILTON Hassan Attending Clinician Unav Hamilton Hassan MD Attending Clinician + Altagracia Whitley MD Attending Clinician [phone] Pob, [facility] Attending Clinician Unavailabl e Doctor Unassigned, [place] Attending Clinician U navailable Jad Padron DNP Attending Clinician [phone], [facility] Attending Clinician Unavailable STEPHANIE HICKS Attending Clinician Unavail able MARCUS MCKEON Attending Clinician Unavail able MARCUS MCKEON Attending Clinician Unavail able Marcus Mckeon MD Attending Clinician [phone] ENA SMALL Attending Clinician Unavaila Shelby Tavarez Attending Clinician [phone] SHELBY MERCER Attending Clinician Unavailable Stephanie Parisi Attending Clinician + Ena Small CNM Attending Clinician [phone] Stephanie Parisi Attending Clinician + Flor Rouse Attending Clinician Unavailable ELISE HERNANDEZ Attending Clinician Unavailyarelis Blunt Attending Clinician Unavailable JANE TITUS Attending Clinician Unavailable UNKNOWN, ATTENDING Attending Clinician Unavailab RADHA Dave Attending Clinician Unavailable Radha James PA-C Attending Clinician [phone] Unknown, Attending Attending Clinician Unavailab le Doctor Unassigned, [place] Attending Clinician U IYV Pabon Attending Clinician UnavailVELIA Mcduffie Attending Clinician Unavailable RICHARD AMAYA Attending Clinician Unavailab KARLA Damian Attending Clinician Unavailyarelis Barreto, [facility] Attending Clinician Unavailable Ida Marroquin Attending Clinician [phone] Richard Machuca Attending Clinician Unava Pardeep Brooks DO Attending Clinician [phone] IDA VARELA Attending Clinician UnavailHAMILTON García Admitting Clinician UnaHamilton Mckay MD Admitting Clinician + Lyndon Billings Admitting Clinician Unavailab daya Blunt Admitting Clinician Unavailable Payers Payer Name Policy Type Policy Number Effective Date Expirati on Date Source [facility] [id number] 2025 00:00:00 [facility] [id number] 2023 00:00:00 [facility] (MEDICAID HMO) [id number] 2016 00:00:00 MEDICAID PENDING PENDING 2021 00:00:00 [facility] [id number] 2017 00:00:00 Problems Condition Name Condition Details Condition Category Status Onset Date Resolution Date Last Treatment Date Treating Clinician Comments Source Obesity (BMI 30-39.9) Obesity (BMI 30-39.9) Disease Active 2025-0 5-09 00:00: 00 [facility] Short cervix Short cervix Disease Active 0 5-09 00:00: 00 [facility] Short cervix affecting Short cervix affecting Disease Active 0 5-09 00:00: 00 [facility] Sciatic pain, unspecifie d laterality Sciatic pain, unspecifie d laterality Disease Active 0 4-28 00:00: 00 [facility] Anxiety and depression Anxiety and depression Disease Active 0 4-28 00:00: 00 [facility] Obesity in Obesity in Disease Active 0 2-27 00:00: 00 [facility] Excessive weight gain Excessive weight gain Disease Active 0 2-27 00:00: 00 [facility] of left fallopian tube of Left Fallopian Tube Problem Active 0 4-12 00:00: 00 [facility] High risk due to recurrent loss High Risk Due to Recurrent Loss Problem Active 0 4-03 00:00: 00 [facility] History of abnormal cervical Pap smear History of abnormal cervical Pap smear Disease Active 0 5-13 00:00: 00 Overview: Formattin g of this note might be different from the original. 2017 Negative PAP [id number] Negative PAP +[id number] Negative PAP +HPV, negative [id number] Negative PAP and [id number] Negative PAP and [id number] pending [facility] Vaginal bleeding affecting early Vaginal bleeding affecting early Disease Active 0 6- 00:00: 00 [facility] Encounter for other contracept rishi management Encounter for other contracept rishi management Disease Resolve d 2023-0 7-23 00:00: 00 2024-12-18 00:00:00 2024-12-18 11:17:12 [facility] Over weight Over weight Disease Resolve d 2023-0 7-23 00:00: 00 2024-12-18 00:00:00 2024-12-18 11:17:14 [facility] Other general counseling and advice for contracept rishi management Other general counseling and advice for contracept rishi management Disease Resolve d 03-31 00:00: 00 2024-05-13 00:00:00 2024-05-13 13:17:52 [facility] Over weight Over weight Disease Resolve d 2016-10 2 00:00: 00 2024-05-13 00:00:00 2024-05-13 13:17:50 [facility] Cyst of right ovary Cyst of right ovary Disease Resolve d 04-13 00:00: 00 2023-03-03 00:00:00 2023-03-03 12:56:01 [facility] Susceptibl e to varicella (non-immun e), currently Susceptibl e to varicella (non-immun e), currently Disease Resolve d 03-23 00:00: 00 2022-03-31 00:00:00 2022-03-31 16:16:07 [facility] Rubella non-immune status, antepartum Rubella non-immune status, antepartum Disease Resolve d 6- 00:00: 00 2022-03-31 00:00:00 2022-03-31 16:16:09 [facility] High-risk in second trimester High-risk in second trimester Disease Active 03-22 00:00: 00 2022-03-31 00:00:00 2022-03-31 16:16:10 [facility] History of miscarriag e History of miscarriag e Disease Resolve d 6- 00:00: 00 2022-03-31 00:00:00 2022-03-31 16:16:11 [facility] Vaginal bleeding in Vaginal bleeding in Disease Resolve d 6- 00:00: 00 2022-03-31 00:00:00 2022-03-31 16:16:05 [facility] Dysuria Dysuria Disease Resolve d 5-05 00:00: 00 2021-03-22 00:00:00 2021-03-22 16:30:58 [facility] Maternal varicella, non-immune Maternal varicella, non-immune Disease Resolve d 3-23 00:00: 00 2021-03-22 00:00:00 2021-03-22 16:31:00 [facility] Screening examinatio n for STD (sexually transmitte d disease) Screening examinatio n for STD (sexually transmitte d disease) Disease Resolve d 3-16 00:00: 00 2021-03-22 00:00:00 2021-03-22 16:31:03 [facility] UTI symptoms UTI symptoms Disease Resolve d 3-16 00:00: 00 2021-03-22 00:00:00 2021-03-22 16:31:05 [facility] Contracept rishi management Contracept rishi management Disease Resolve d 2016-10 00:00: 00 2021-03-22 00:00:00 2021-03-22 16:30:57 [facility] Miscarriag e Miscarriag e Disease Resolve d 11-10 00:00: 00 2017-09-21 00:00:00 2017-09-21 14:05:51 [facility] Other general counseling and advice for contracept rishi management Other general counseling and advice for contracept rishi management Disease Resolve d 11-10 00:00: 00 2017-09-21 00:00:00 2017-09-21 14:05:51 [facility] Missed Missed Disease Resolve d 2015-10 2 00:00: 00 2017-09-21 00:00:00 2017-09-21 14:05:50 [facility] Rubella non-immune status, antepartum Rubella non-immune status, antepartum Disease Resolve d 2015-1017 00:00: 00 2017-09-21 00:00:00 2017-09-21 14:05:49 [facility] Supervisio n of high risk , antepartum Supervisio n of high risk , antepartum Disease Resolve d 2015-10 1-16 00:00: 00 2017-09-21 00:00:00 2017-09-21 14:05:47 [facility] Flu vaccine need Flu vaccine need Disease Resolve d 2015-10 00:00: 00 2017-09-21 00:00:00 2022-05-07 00:43:11 [facility] Flu vaccine need Flu vaccine need Disease Resolve d 2015-10 00:00: 00 2017-09-21 00:00:00 2022-05-07 00:43:11 [facility] Surveillan ce of previously prescribed contracept rishi pill Surveillan ce of previously prescribed contracept rishi pill Disease Resolve d 03-30 00:00: 00 2016-09-06 00:00:00 2016-09-06 11:18:49 [facility] Allergies, Adverse Reactions, Alerts Allergy Name Allergy Type Status Severity Reaction(s) Onset Date Inactive Date Treating Clinician Comments Source codeine DA Active SV HIVES 04-08 00:00: 00 [facility] Codeine Propensi ty to adverse reaction s Active Hives 02-27 00:00: 00 [facility] CODEINE DRUG INGREDI Active Hives 02-27 00:00: 00 [facility] Codeine Allergy to substanc e Active [facility] Social History Social Habit Start Date Stop Date Quantity Comments Source ASSERTION 2024-11-05 00:00:00 [facility] Alcoholic [facility] intake 2025-02-27 00:00:00 2025-02-27 00:00:00 Ex-drinker (finding) [facility] Tobacco use and exposure 2025-02-27 00:00:00 2025-02-27 00:00:00 Smokeless tobacco non-user [facility] History of Social function 2024-05-13 00:00:00 2024-05-13 00:00:00 [facility] Alcohol intake 2023-11-13 00:00:00 2023-11-13 00:00:00 Current drinker of alcohol (finding) [facility] Exposure to SARS-CoV-2 (event) 2023-02-18 00:00:00 2023-02-28 06:11:00 Not sure [facility] Alcohol Comment 2023-02-28 00:00:00 2023-02-28 00:00:00 social [facility] Sex assigned at 1995 00:00:00 1995 00:00:00 [facility] Smoking Status Start Date Stop Date Source Never smoked tobacco [facility] Medications Ordered Medication Name Filled Medication Name Start Date Stop Date Current Medication? Ordering Clinician Indication Dosage Frequency Signature (SIG) Comments Components Source indomethaci n (INDOCIN) capsule 25 mg indomethaci n (INDOCIN) capsule 25 mg 02-28 02:00: 00 02-28 02:09 :00 Yes 25mg 25 mg, Oral, ONCE, 1 dose, On Sun02/27/25 at 2100, Routine [facility] FENTanyl (PF) (SUBLIMAZE) injection 25 mcg 02-27 22:45: 17 Yes 25ug 25 mcg, Slow IV Push, Q5MIN PRN, 4 doses, Starting on Sun02/27/25 at 1745, Until Discontinu ed, Routine, Pain (scale 7-10), PACU [facility] naloxone (NARCAN) injection 0.2 mg 02-27 22:45: 17 02-28 04:59 :00 Yes .2mg 0.2 mg, Intramuscu lar, ONCE PRN, 1 dose, Starting on Sun02/27/25 at 1745, Until Sun02/27/25 at 2359, Routine, Itching, PACU [facility] diphenhydrA MINE (BENADRYL) injection 25 mg 02-27 22:45: 17 02-28 04:59 :00 Yes 25mg 25 mg, Slow IV Push, ONCE PRN, 1 dose, Starting on Sun02/27/25 at 1745, Until Sun02/27/25 at 2359, Routine, Itching, PACU [facility] ondansetron (ZOFRAN (PF)) injection 4 mg 02-27 22:45: 17 02-28 04:59 :00 Yes 4mg 4 mg, Slow IV Push, ONCE PRN, 1 dose, Starting on Sun02/27/25 at 1745, Until Sun02/27/25 at 2358, Administer over 2-5 Minutes, 2 mL, PACU [facility] acetaminoph en (OFIRMEV) IV piggyback 1,000 mg 02-27 22:45: 17 02-28 04:59 :00 Yes 1000mg 1,000 mg, IV Piggyback, at 400 mL/hr Administer over 15 Minutes, ONCE PRN, 1 dose, Starting on Sun02/27/25 at 1745, Until Sun02/27/25 at 2358, Routine, Pain (scale 4-6), PACU, Is the patient strict NPO and unable to tolerate oral medication s? Yes [facility] ketorolac (TORADOL) injection 30 mg 02-27 22:45: 17 02-28 04:59 :00 Yes 30mg 30 mg, Slow IV Push, ONCE PRN, 1 dose, Starting on Sun02/27/25 at 1745, Until Sun02/27/25 at 2358, Routine, Pain (scale 1-3), Pain (scale 4-6), Pain (scale 7-10), PACU [facility] ceFAZolin (ANCEF) 2,000 mg in NaCl 0.9% (NS) 100 mL V2B IV Piggyback 02-27 20:36: 51 02-28 04:59 :00 Yes 2000mg 2,000 mg, IV Piggyback, O.R. 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 HOLDING ONCE, 1 dose, Starting on Sun02/27/25 at 1456, Until Sun02/27/25 at 1534, Routine, Surgery/Pr ocedure [facility] [id number] fum-folic () tablet 1 tablet 02-27 14:00: 00 Yes 1{tbl} 1 tablet, Oral, DAILY, First dose on Sun02/27/25 at 0900, Until Discontinu ed, Routine [facility] acetaminoph en (TYLENOL) tablet 650 mg 02-27 13:00: 00 Yes 650mg 650 mg, Oral, Q6HPRN, Starting on Sun02/27/25 at 0800, Until Discontinu ed, Routine, Pain (scale 1-3) [facility] alum-mag hydroxide-s imeth (MAG-AL PLUS) 200-200-20 mg/5 mL suspension 30 mL 02-27 09:26: 19 Yes 30mL 30 mL, Oral, Q6HPRN, Starting on Sun02/27/25 at 0426, Until Discontinu ed, Routine, Indigestio n [facility] docusate (COLACE) capsule 200 mg 02-27 09:26: 19 Yes 200mg 200 mg, Oral, QHSPRN, Starting on Sun02/27/25 at 0426, Until Discontinu ed, Routine, Constipati on [facility] magnesium hydroxide (MILK OF MAGNESIA) 400 mg/5 mL suspension 30 mL 02-27 09:26: 19 Yes 30mL 30 mL, Oral, QDAILYPRN, Starting on Sun02/27/25 at 0426, Until Discontinu ed, Routine, Constipati on [facility] acetaminoph en (TYLENOL) tablet 1,000 mg 02-27 08:45: 00 02-27 09:37 :00 No 1000mg 1,000 mg, Oral, ONCE, 1 dose, On Sun02/27/25 at 0345, Routine [facility] Vit Comb.10-Iro n-FA 65-1 mg Tab 12-18 10:12: 20 Yes Take by mouth. [facility] progesteron e 200 mg capsule 12-18 00:00: 00 02-16 00:00 :[id number] 1 pill in vagina nightly until 12 weeks of gestation [facility] metroNIDAZO LE 500 mg tablet 11-19 00:00: 00 12-18 00:00 :00 No [id number] 500mg Take 1 tablet by mouth every 12 (twelve) hours. [facility] fluconazole 150 mg tablet 11-18 00:00: 12-18 00:00 :00 No [id number] 150mg Take 1 tablet by mouth every 3 (three) days. [facility] norgestimat e-ethinyl estradioL (ORTHO TRI-CYCLEN, 28,) 0.18/0.215/ 0.25 mg-35 mcg () tablet 2023-10 00:00: 00 12-18 00:00 :00 No [id number] 1{tbl} Take 1 tablet by mouth in the morning. [facility] Nitrofurant oin&Nit. Macrocryst (MACROBID) 100 mg capsule 05-16 00:00: 00 05-27 04:59 :00 No [id number] 100mg Take 1 capsule by mouth in the morning and 1 capsule in the evening. Do all this for 10 days. [facility] metroNIDAZO LE 500 mg tablet 05-15 00:00: 00 05-23 04:59 :00 No [id number] 500mg Take 1 tablet by mouth in the morning and 1 tablet in the evening. Do all this for 7 days. [facility] fluconazole (DIFLUCAN) 150 mg tablet 05-15 00:00: 00 05-16 04:59 :00 No [id number] 150mg Take 1 tablet by mouth once now for 1 dose. [facility] phentermine HCl (PHENTERMIN E ORAL) 05-13 12:58: 39 12-18 00:00 :00 No Take by mouth. [facility] norgestimat e-ethinyl estradioL (ORTHO TRI-CYCLEN, 28,) 0.18/0.215/ 0.25 mg-35 mcg (28) tablet - 00:00: 00 09-15 00:00 :00 No [id number] 1{tbl} Take 1 tablet by mouth in the morning. [facility] cefdinir 300 mg capsule 3-22 00:00: 00 05-13 00:00 :00 No [id number] 300mg Take 1 capsule by mouth every 12 (twelve) hours. [facility] fluconazole (DIFLUCAN) 150 mg tablet 1-04 00:00: 00 05-13 00:00 :00 No [id number] 150mg Take 1 tablet by mouth every 72 (seventy-t wo) hours. [facility] Nitrofurant oin&Nit. Macrocryst (MACROBID) 100 mg capsule 1-03 00:00: 00 05-13 00:00 :00 No [id number] 100mg Take 1 capsule by mouth in the morning and 1 capsule in the evening. [facility] fluconazole (DIFLUCAN) 150 mg tablet 5-12 00:00: 00 03-03 04:59 :00 No [id number] 150mg Take 1 tablet by mouth once now for 1 dose. Take second tablet in 1 week [facility] phentermine HCl (PHENTERMIN E ORAL) 5 08:20: 44 Yes Take by mouth. [facility] norgestimat e-ethinyl estradioL (ORTHO TRI-CYCLEN, 28,) 0.18/0.215/ 0.25 mg-35 mcg (28) tablet 9-16 00:00: 00 02-28 00:00 :00 No [id number] 1{tbl} Take 1 tablet by mouth in the morning. [facility] Nitrofurant oin&Nit. Macrocryst (MACROBID) 100 mg capsule 6-13 00:00: 00 02-28 00:00 :00 No [id number] 100mg Take 1 capsule by mouth 2 (two) times daily. [facility] PNV 67-iron ps-folate no.1-dha (VITAFOL ULTRA) 29 mg iron- 1 mg-200 mg Cap - 00:00: 00 10-28 00:00 :00 No [id number] 1{each} Take 1 Each by mouth daily. [facility] norgestimat e-ethinyl estradioL 0.18/0.215/ 0.25 mg-25 mcg tablet 5-05 00:00: 00 10-28 00:00 :00 No [id number] 1{tbl} Take 1 tablet by mouth daily. [facility] ibuprofen 800 mg tablet Take 1 tablet every 6 hours by oral route as needed. ibuprofen 800 mg tablet Take 1 tablet every 6 hours by oral route as needed. No 1 Q6H ibuprofen 800 mg tablet Take 1 tablet every 6 hours by oral route as needed. [facility] Diflucan 100 mg tablet Take 1 tablet every day by oral route for 3 days. Diflucan 100 mg tablet Take 1 tablet every day by oral route for 3 days. No 1 Q1D Diflucan 100 mg tablet Take 1 tablet every day by oral route for 3 days. [facility] Immunizations Ordered Immunization Name Filled Immunization Name Date Status Comments Source HPV9 2019-09-10 00:00:00 Completed [facility] HPV9 2019-09-10 00:00:00 Completed [facility] HPV9 2019-09-10 00:00:00 Completed [facility] HPV9 2019-09-10 00:00:00 Completed [facility] HPV9 2019-09-10 00:00:00 Completed [facility] HPV9 2019-09-10 00:00:00 Completed [facility] HPV9 2019-09-10 00:00:00 Completed [facility] HPV9 2019-06-17 00:00:00 Completed [facility] HPV9 2019-06-17 00:00:00 Completed [facility] HPV9 2019-06-17 00:00:00 Completed [facility] HPV9 2019-06-17 00:00:00 Completed [facility] HPV9 2019-06-17 00:00:00 Completed [facility] HPV9 2019-06-17 00:00:00 Completed [facility] HPV9 2019-06-17 00:00:00 Completed [facility] Influenza Virus Vaccine Quad IM 3+ YRS 2016-09-06 00:00:00 Completed Influenza Virus Vaccine Quad IM 3+ YRS 2016-09-06 00:00:00 Completed [facility] Influenza Virus Vaccine Quad IM 3+ YRS 2016-09-06 00:00:00 Completed [facility] Influenza Virus Vaccine Quad IM 3+ YRS 2016-09-06 00:00:00 Completed [facility] Influenza Virus Vaccine Quad IM 3+ YRS 2016-09-06 00:00:00 Completed [facility] Influenza Virus Vaccine Quad IM 3+ YRS 2016-09-06 00:00:00 Completed [facility] Influenza Virus Vaccine Quad IM 3+ YRS 2016-09-06 00:00:00 Completed [facility] TDAP 2009-10-22 00:00:00 Completed [facility] TDAP 2009-10-22 00:00:00 Completed [facility] TDAP 2009-10-22 00:00:00 Completed [facility] TDAP 2009-10-22 00:00:00 Completed [facility] TDAP 2009-10-22 00:00:00 Completed [facility] TDAP 2009-10-22 00:00:00 Completed [facility] TDAP 2009-10-22 00:00:00 Completed [facility] HPV9 Unknown Completed [facility] TDAP Unknown Completed [facility] Influenza Virus Vaccine Quad IM 3+ YRS Unknown Completed [facility] HPV9 Unknown Completed [facility] TDAP Unknown Completed [facility] Influenza Virus Vaccine Quad IM 3+ YRS Unknown Completed [facility] HPV9 Unknown Completed [facility] TDAP Unknown Completed [facility] Influenza Virus Vaccine Quad IM 3+ YRS Unknown Completed [facility] HPV9 Unknown Completed [facility] TDAP Unknown Completed [facility] Influenza Virus Vaccine Quad IM 3+ YRS Unknown Completed [facility] HPV9 Unknown Completed [facility] TDAP Unknown Completed [facility] Influenza Virus Vaccine Quad IM 3+ YRS Unknown Completed [facility] HPV9 Unknown Completed [facility] TDAP Unknown Completed [facility] Influenza Virus Vaccine Quad IM 3+ YRS Unknown Completed [facility] HPV9 Unknown Completed [facility] TDAP Unknown Completed [facility] Influenza Virus Vaccine Quad IM 3+ YRS Unknown Completed [facility] HPV9 Unknown Completed [facility] TDAP Unknown Completed [facility] Influenza Virus Vaccine Quad IM 3+ YRS Unknown Completed [facility] HPV9 Unknown Completed [facility] TDAP Unknown Completed [facility] Influenza Virus Vaccine Quad IM 3+ YRS Unknown Completed [facility] HPV9 Unknown Completed [facility] TDAP Unknown Completed [facility] Influenza Virus Vaccine Quad IM 3+ YRS Unknown Completed [facility] HPV9 Unknown Completed [facility] TDAP Unknown Completed [facility] Influenza Virus Vaccine Quad IM 3+ YRS Unknown Completed [facility] HPV9 Unknown Completed [facility] TDAP Unknown Completed [facility] Influenza Virus Vaccine Quad IM 3+ YRS Unknown Completed [facility] HPV9 Unknown Completed [facility] TDAP Unknown Completed [facility] Influenza Virus Vaccine Quad IM 3+ YRS Unknown Completed [facility] HPV9 Unknown Completed [facility] TDAP Unknown Completed [facility] Influenza Virus Vaccine Quad IM 3+ YRS Unknown Completed [facility] HPV9 Unknown Completed [facility] TDAP Unknown Completed [facility] Influenza Virus Vaccine Quad IM 3+ YRS Unknown Completed [facility] HPV9 Unknown Completed [facility] TDAP Unknown Completed [facility] Influenza Virus Vaccine Quad IM 3+ YRS Unknown Completed [facility] HPV9 Unknown Completed [facility] TDAP Unknown Completed [facility] Influenza Virus Vaccine Quad IM 3+ YRS Unknown Completed [facility] HPV9 Unknown Completed [facility] TDAP Unknown Completed [facility] Influenza Virus Vaccine Quad IM 3+ YRS Unknown Completed [facility] HPV9 Unknown Completed [facility] TDAP Unknown Completed [facility] Influenza Virus Vaccine Quad IM 3+ YRS Unknown Completed [facility] Vital Signs Vital Name Observation Time Observation Value Comments S ource Systolic blood pressure 2025-02-28 00:15:00 112 mm[Hg] [facility] Diastolic blood pressure 2025-02-28 00:15:00 67 mm[Hg] [facility] Heart rate 2025-02-28 00:15:00 92 /min [facility] Body temperature 2025-02-28 00:15:00 36.67 Shelly [facility] Oxygen saturation in Arterial blood by Pulse oximetry 2025-02-28 00:15:00 100 /min [facility] Respiratory rate 2025-02-27 22:30:00 18 /min [facility] Body height 2025-02-27 07:30:00 154.9 cm [facility] Body weight 2025-02-27 07:30:00 77.111 kg [facility] BMI 2025-02-27 07:30:00 32.12 kg/m2 [facility] Systolic blood pressure 2025-02-16 21:13:00 108 mm[Hg] [facility] Diastolic blood pressure 2025-02-16 21:13:00 66 mm[Hg] [facility] Heart rate 2025-02-16 21:13:00 81 /min [facility] Body temperature 2025-02-16 21:13:00 36.56 Shelly [facility] Body height 2025-02-16 21:13:00 154.9 cm [facility] Body weight 2025-02-16 21:13:00 74.844 kg [facility] BMI 2025-02-16 21:13:00 31.18 kg/m2 [facility] Systolic blood pressure 2025-01-16 17:59:00 115 mm[Hg] [facility] Diastolic blood pressure 2025-01-16 17:59:00 71 mm[Hg] [facility] Heart rate 2025-01-16 17:59:00 85 /min [facility] Body temperature 2025-01-16 17:59:00 37.67 Shelly [facility] Respiratory rate 2025-01-16 17:59:00 18 /min [facility] Body weight 2025-01-16 17:59:00 74.481 kg [facility] BMI 2025-01-16 17:59:00 30.03 kg/m2 [facility] Systolic blood pressure 2024-12-18 16:24:00 107 mm[Hg] [facility] Diastolic blood pressure 2024-12-18 16:24:00 71 mm[Hg] [facility] Heart rate 2024-12-18 16:24:00 90 /min [facility] Body temperature 2024-12-18 16:24:00 37.28 Shelly [facility] Respiratory rate 2024-12-18 16:24:00 18 /min [facility] Body height 2024-12-18 16:24:00 157.5 cm [facility] Body weight 2024-12-18 16:24:00 75.388 kg [facility] BMI 2024-12-18 16:24:00 30.40 kg/m2 [facility] Systolic blood pressure 2024-11-18 19:27:00 126 mm[Hg] [facility] Diastolic blood pressure 2024-11-18 19:27:00 78 mm[Hg] [facility] Heart rate 2024-11-18 19:27:00 70 /min [facility] Body temperature 2024-11-18 19:27:00 36.67 Shelly [facility] Respiratory rate 2024-11-18 19:27:00 18 /min [facility] Body height 2024-11-18 19:27:00 154.9 cm [facility] Body weight 2024-11-18 19:27:00 75.206 kg [facility] BMI 2024-11-18 19:27:00 31.33 kg/m2 [facility] Systolic blood pressure 2024-05-13 17:53:00 115 mm[Hg] [facility] Diastolic blood pressure 2024-05-13 17:53:00 76 mm[Hg] [facility] Heart rate 2024-05-13 17:53:00 74 /min [facility] Body temperature 2024-05-13 17:53:00 36.67 Shelly [facility] Respiratory rate 2024-05-13 17:53:00 18 /min [facility] Body height 2024-05-13 17:53:00 154.9 cm [facility] Body weight 2024-05-13 17:53:00 70.398 kg [facility] BMI 2024-05-13 17:53:00 29.32 kg/m2 [facility] BP Systolic 2024-02-15 00:00:00 108 mm[Hg] [facility] BP Diastolic 2024-02-15 00:00:00 71 mm[Hg] [facility] BMI (Body Mass Index) 2024-02-15 00:00:00 30.6 kg/m2 [facility] Height 2024-02-15 00:00:00 60 [in_i] [facility] Body Weight 2024-02-15 00:00:00 156.9 [lb_av] [facility] BP Systolic 2024-02-01 00:00:00 113 mm[Hg] [facility] Body Weight 2024-02-01 00:00:00 157.3 [lb_av] [facility] BMI (Body Mass Index) 2024-02-01 00:00:00 30.7 kg/m2 [facility] BP Diastolic 2024-02-01 00:00:00 81 mm[Hg] [facility] Height 2024-02-01 00:00:00 60 [in_i] [facility] BP Systolic 2024-01-31 00:00:00 127 mm[Hg] [facility] Body Weight 2024-01-31 00:00:00 159.2 [lb_av] [facility] BMI (Body Mass Index) 2024-01-31 00:00:00 31.1 kg/m2 [facility] Height 2024-01-31 00:00:00 60 [in_i] [facility] BP Diastolic 2024-01-31 00:00:00 75 mm[Hg] [facility] Systolic blood pressure 2024-01-11 16:12:00 116 mm[Hg] [facility] Diastolic blood pressure 2024-01-11 16:12:00 79 mm[Hg] [facility] Heart rate 2024-01-11 16:12:00 85 /min [facility] Body temperature 2024-01-11 16:12:00 36.61 Shelly [facility] Respiratory rate 2024-01-11 16:12:00 18 /min [facility] Body height 2024-01-11 16:12:00 154.9 cm [facility] Body weight 2024-01-11 16:12:00 71.532 kg [facility] BMI 2024-01-11 16:12:00 29.80 kg/m2 [facility] Oxygen saturation in Arterial blood by Pulse oximetry 2024-01-11 16:12:00 99 /min [facility] Systolic blood pressure 2023-10-24 19:18:00 119 mm[Hg] [facility] Diastolic blood pressure 2023-10-24 19:18:00 75 mm[Hg] [facility] Heart rate 2023-10-24 19:18:00 98 /min [facility] Body temperature 2023-10-24 19:18:00 37.17 Shelly [facility] Respiratory rate 2023-10-24 19:18:00 16 /min [facility] Body weight 2023-10-24 19:18:00 70.308 kg [facility] BMI 2023-10-24 19:18:00 31.31 kg/m2 [facility] Oxygen saturation in Arterial blood by Pulse oximetry 2023-10-24 19:18:00 97 /min [facility] Systolic blood pressure 2023-02-28 13:12:00 123 mm[Hg] [facility] Diastolic blood pressure 2023-02-28 13:12:00 88 mm[Hg] [facility] Heart rate 2023-02-28 13:12:00 91 /min [facility] Body temperature 2023-02-28 13:12:00 36.83 Shelly [facility] Respiratory rate 2023-02-28 13:12:00 18 /min [facility] Body height 2023-02-28 13:12:00 149.9 cm [facility] Body weight 2023-02-28 13:12:00 66.395 kg [facility] BMI 2023-02-28 13:12:00 29.56 kg/m2 [facility] BP Diastolic 2022-11-02 00:00:00 72 mm[Hg] [facility] Height 2022-11-02 00:00:00 64 [in_i] [facility] BMI (Body Mass Index) 2022-11-02 00:00:00 25 kg/m2 [facility] BP Systolic 2022-11-02 00:00:00 108 mm[Hg] [facility] Body Weight 2022-11-02 00:00:00 145.4 [lb_av] [facility] BP Diastolic 2022-10-12 00:00:00 83 mm[Hg] [facility] Height 2022-10-12 00:00:00 64 [in_i] [facility] BMI (Body Mass Index) 2022-10-12 00:00:00 24.6 kg/m2 [facility] BP Systolic 2022-10-12 00:00:00 114 mm[Hg] [facility] Body Weight 2022-10-12 00:00:00 143.3 [lb_av] [facility] BP Diastolic 2022-09-12 00:00:00 79 mm[Hg] [facility] Height 2022-09-12 00:00:00 64 [in_i] [facility] BMI (Body Mass Index) 2022-09-12 00:00:00 25.6 kg/m2 [facility] BP Systolic 2022-09-12 00:00:00 119 mm[Hg] [facility] Body Weight 2022-09-12 00:00:00 148.9 [lb_av] [facility] Systolic blood pressure 2022-07-07 20:00:00 107 mm[Hg] [facility] Diastolic blood pressure 2022-07-07 20:00:00 67 mm[Hg] [facility] Heart rate 2022-07-07 20:00:00 74 /min [facility] Body temperature 2022-07-07 20:00:00 36.44 Shelly [facility] Respiratory rate 2022-07-07 20:00:00 18 /min [facility] Body height 2022-07-07 20:00:00 149.9 cm [facility] Body weight 2022-07-07 20:00:00 64.921 kg [facility] BMI 2022-07-07 20:00:00 28.91 kg/m2 [facility] Procedures Procedure Date / Time Performed Performing Clinician Source CBC WITH DIFF 2025-02-27 08:18:00 Esha German [facility] URINALYSIS 2025-02-27 08:18:00 Esha German [facility] HB ABO GROUPING 2025-02-27 08:18:00 Esha German Y [facility] GC & CHLAMYDIA AMPLIFIED ASSAY 2025-02-27 08:18:00 Esha German Y [facility] POCT URINALYSIS W/O SPECIFIC GRAVITY 2025-02-16 21:18:00 Altagracia Whitley [facility] SCANNED LAB RESULTS 2025-01-20 16:12:11 Doctor Tammy mao, [place] [facility] <14 WEEKS US LIMITED 2025-01-16 19:45:06 Jad Padron [facility] POCT URINALYSIS W/O SPECIFIC GRAVITY 2025-01-16 18:03:00 Jad Padron [facility] SCANNED LAB RESULTS 2025-01-15 17:40:23 Doctor Tammy mao, [place] [facility] GLUCOSE 1 HOUR POST PRANDIAL 2024-12-18 18:18:00 Altagracia Whitley [facility] CBC WITH DIFF 2024-12-18 18:18:00 Altagracia Whitley [facility] HB ABO GROUPING 2024-12-18 18:18:00 Altagracia Whitley [facility] HIV 1/2 AG-AB WITH REFLEX 2024-12-18 18:18:00 Cedric Whitley simon [facility] PROGESTERONE, LEVEL 2024-12-18 18:18:00 Altagracia Whitley [facility] RUBELLA SCREEN IGG 2024-12-18 18:18:00 WhitleyAltagracia [facility] VZV ANTIBODY SCREEN 2024-12-18 18:18:00 Altagracia Whitley [facility] HEPATITIS B SURFACE ANTIGEN 2024-12-18 18:18:00 WhitleyAltagracia [facility] HCV ANTIBODY 2024-12-18 18:18:00 Whitley Altagracia Ihsan [facility] ADC OR ANTHONY ONLY - RPR 2024-12-18 18:18:00 WhitleyCedric simon [facility] ANTIPHOSPHOLIPID ANTIBODY EVALUATION-LT BLUE 2024-12-18 18:18:00 Altagracia Whitley [facility] ANTIPHOSPHOLIPID ANTIBODY EVALUATION-SST 2024-12-18 18:18:00 Altagracia Whitley [facility] LUPUS ANTICOAGULANT REFLEXIVE PANEL 2024-12-18 18:18:00 Altagracia Whitley [facility] US OB TRANSVAGINAL 2024-12-18 17:58:35 Altagracia Whitley [facility] POCT TEST 2024-12-18 16:26:00 WhitleyAltagracia [facility] POCT URINALYSIS W/O SPECIFIC GRAVITY 2024-12-18 16:26:00 WhitleyAltagracia [facility] HIV 1/2 AG-AB WITH REFLEX 2024-11-18 20:06:00 Beatriz Mercer [facility] SYPHILIS IGG/IGM 2024-11-18 20:06:00 Shelby Mercer [facility] GALV ONLY - VAGINAL PATHOGENS BY NUCLEIC ACID TESTING 2024-11-18 20:02:00 Shelby Mercer [facility] POCT TEST 2024-11-18 19:52:00 Shelby Mercer [facility] ULTRASOUND, UTERUS REAL TIME WITH IMAGE DOCUMENTAITON, TRANSVAGINAL 2024-01-31 00:00:00 [facility] ULTRASOUND, UTERUS REAL TIME WITH IMAGE DOCUMENTAITON, TRANSVAGINAL 2024-01-23 00:00:00 [facility] POCT URINALYSIS 2024-01-11 00:00:00 Radha James Un [facility] POCT TEST 2024-01-11 00:00:00 Gwendolyn James y [facility] POCT TEST 2023-10-24 19:23:00 Gwendolyn James y [facility] GALV ONLY - VAGINAL PATHOGENS BY NUCLEIC ACID TESTING 2023-10-24 19:20:00 Radha James [facility] POCT URINALYSIS 2023-10-24 19:19:00 Radha James Un [facility] ASSIGNMENT OF BENEFITS 2023-10-24 19:09:13 Docto r Unassigned, [place] [facility] CBC WITH DIFF 2023-02-28 13:55:00 Ena Small [facility] GLYCOSYLATED HEMOGLOBIN (A1C) 2023-02-28 13:55:00 Ena Small [facility] HCV ANTIBODY 2023-02-28 13:55:00 Ena Small [facility] GC & CHLAMYDIA AMPLIFIED ASSAY 2023-02-28 13:55:00 Ena Small [facility] GALV ONLY - VAGINAL PATHOGENS BY NUCLEIC ACID TESTING 2023-02-28 13:55:00 Ena Small [facility] HIV 1/2 AG-AB WITH REFLEX 2023-02-28 13:55:00 Ena Burgos [facility] SYPHILIS IGG/IGM 2023-02-28 13:55:00 Ena Small [facility] ASSIGNMENT OF BENEFITS 2023-02-28 12:47:02 Docto r Unassigned, [place] [facility] US, transvaginal 2022-11-16 00:00:00 Mohamud kincaid [facility] REFERRAL- REQUEST/RESPONSE 2022-10-14 06:01:00 Yony joana Unassigned, [place] [facility] US, transvaginal 2022-09-12 00:00:00 [facility] POCT TEST 2022-07-07 20:02:00 Meet Hicks [facility] Salpingectomy, Laparoscopic (Surg) [facility] Plan of Care Planned Activity Planned Date Details Comments Source Diagnostic Test Pending 2024-02-15 00:00:00 urinalysis, dipstick [code = urinalysis, dipstick] [facility] Diagnostic Test Pending 2024-02-15 00:00:00 wet mount, vaginal [code = wet mount, vaginal] [facility] Instructions [facility] dical Group Encounters Start Date/Time End Date/Time Encounter Type Admission Type Attending [facility] Care Facility Care Department Encounter ID Source 2025-02-27 22:05:24 Outpatient P [facility] SHYANNE [id number] [facility] 2022-10-12 10:36:13 Outpatient [facility] [id number] [facility] 2025-03-17 12:30:00 2025-03-17 12:30:00 Outpatient R JAD PADRON [facility] [id number] [facility] 2025-03-13 14:00:00 2025-03-13 14:00:00 Outpatient R [facility] [id number] [facility] 2025-02-27 02:24:00 2025-02-27 21:12:00 Inpatient P HAMILTON ESCALERA CHASEY [facility] [id number] [facility] 2025-02-27 02:24:00 2025-02-27 21:12:00 Hospital Encounter Hamilton Escalera [facility] [place] [facility] 1.2.840.114 350.1.13.10 4.2.7.2.686 [id number] [facility] 2025-02-17 00:00:00 2025-02-18 13:39:32 Telephone Altagracia Whitley [facility] 1.2840.114 350.1.13.10 4.2.7.2.686 [id number] [facility] 2025-02-16 16:45:00 2025-02-16 17:00:00 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 Representative Visit Pob, Adc Lab Main WhitleyAraselicharito Champagne Pob, Adc Lab Main [facility] AT [facility] 1.2.840.114 350.1.13.10 4.2.7.2.686 [id number] [facility] 2025-02-16 16:45:00 2025-02-16 16:45:00 Outpatient R ALTAGRACIA WHITLEY VIEN [facility] [id number] [facility] 2025-02-16 16:00:00 2025-02-16 16:37:54 Routine Visit Altagracia Whitley [facility] 1.2840.114 350.1.13.10 4.2.7.2.686 [id number] [facility] 2025-01-06 00:00:00 2025-02-07 18:19:08 Patient Secure Msg Altagracia Whitley [facility] 1.2840.114 350.1.13.10 4.2.7.2.686 [id number] [facility] 2025-01-30 00:00:00 2025-01-30 10:33:27 Telephone Altagracia Whitley [facility] 1.2840.114 350.1.13.10 4.2.7.2.686 [id number] [facility] 2025-01-30 00:00:00 2025-01-30 08:40:21 Telephone Altagracia Whitley [facility] 1.2840.114 350.1.13.10 4.2.7.2.686 [id number] [facility] 2025-01-29 18:20:00 2025-01-29 18:20:00 Outpatient R [facility] [id number] [facility] 2025-01-20 00:00:00 2025-01-21 02:04:41 Orders Only Doctor Unassigned, [place] Doctor Unassigned, [place] [facility] [place] [facility] 1.2840.114 350.1.13.10 4.2.7.2.686 [id number] [facility] 2025-01-15 00:00:00 2025-01-17 02:04:33 Orders Only Doctor Unassigned, [place] Doctor Unassigned, [place] [facility] [place] [facility] 1.2.840.114 350.1.13.10 4.2.7.2.686 [id number] [facility] 2025-01-16 12:45:00 2025-01-16 14:03:09 Outpatient R JAD PADRON [facility] [id number] [facility] 2025-01-16 12:45:00 2025-01-16 14:03:09 Routine Visit CullenlambertabdelrahmanJad andersen [facility] 1.2.840.114 350.1.13.10 4.2.7.2.686 [id number] [facility] 2025-01-16 08:45:00 2025-01-16 08:45:00 Outpatient R JAD PADRON [facility] [id number] [facility] 2025-01-13 00:00:00 2025-01-13 13:28:40 Telephone Altagracia Whitley [facility] 1.2.840.114 350.1.13.10 4.2.7.2.686 [id number] [facility] 2025-01-05 08:45:00 2025-01-05 08:45:00 Outpatient R ALTAGRACIA WHITLEYALTAGRACIA [facility] [id number] [facility] 2025-01-01 08:15:00 2025-01-01 08:15:00 Outpatient R [facility] [id number] [facility] 2024-12-19 00:00:00 2024-12-19 16:45:15 Telephone [facility]tagracia Whit[facility] 1.2.840.114 350.1.13.10 4.2.7.2.686 [id number] 134 [id number] [facility] 2024-12-19 00:00:00 2024-12-19 14:07:19 Telephone Altagracia Whitley [facility] 1.2.840.114 350.1.13.10 4.2.7.2.686 [id number] [facility] 2024-12-18 11:15:00 2024-12-18 12:34:43 Outpatient R ALTAGRACIA WHITLEYALTAGRACIA [facility] [id number] [facility] 2024-12-18 11:15:00 2024-12-18 12:34:43 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 Representative Visit 2, Adc Lab Altagracia Whitley 2, Adc Lab [facility] 1.2.840.114 350.1.13.10 4.2.7.2.686 [id number] [facility] 2024-12-18 10:00:00 2024-12-18 10:54:04 Initial Visit Altagracia Whitley [facility] 1.2.840.114 350.1.13.10 4.2.7.2.686 [id number] [facility] 2024-12-09 07:30:00 2024-12-09 07:30:00 Outpatient R STEPHANIE HICKS [facility] [id number] [facility] 2024-12-05 18:26:00 2024-12-05 18:28:00 Emergency X MARCUS MCKEON JOSEPH [facility] ERT [id number] [facility] 2024-12-05 18:26:00 2024-12-05 18:28:00 Emergency Marcus Mckeon [facility] AT [facility] ..840.114 350.1.13.10 4.2.7.2.686 [id number] [facility] 2024-12-04 12:15:00 2024-12-04 12:15:00 Outpatient R ENA SMALL [facility] [id number] [facility] 2024-12-02 07:30:00 2024-12-02 07:30:00 Outpatient R [facility] [id number] [facility] 2024-12-02 07:00:00 2024-12-02 07:00:00 Outpatient R [facility] [id number] [facility] 2024-11-19 00:00:00 2024-11-19 13:57:55 Case Management Ruslan Shelby [facility] NET APPLICATION SUPPORT SPECIALIST [facility] & [facility]ILD [facility] 1..840.114 350.1.13.10 4.2.7.2.686 [id number] [facility] 2024-11-18 13:00:00 2024-11-18 14:02:40 Outpatient R RUSLAN SHELBY [facility] [id number] [facility] 2024-11-18 13:00:00 2024-11-18 14:02:40 Office Visit Ruslan [facility] NET APPLICATION SUPPORT SPECIALIST [facility] CHILD [facility] ..840.114 350.1.13.10 4.2.7.2.686 [id number] [facility] 2024-09-15 00:00:00 2024-09-15 09:07:09 Refill Stephanie Hicks [facility] NET APPLICATION SUPPORT SPECIALIST [facility] CHILD [facility] 1.2840.114 350.1.13.10 4.2.7.2.686 [id number] [facility] 2024-09-15 00:00:00 2024-09-15 09:04:53 Refill Stephanie Hicks [facility] NET APPLICATION SUPPORT SPECIALIST [facility] 1.2.840.114 350.1.13.10 4.2.7.2.686 [id number] [facility] 2024-09-14 00:00:00 2024-09-15 07:57:34 Refill Stephanie Hicks [facility] NET APPLICATION SUPPORT SPECIALIST [facility] 1.840.114 350.1.13.10 4.2.7.2.686 [id number] [facility] 2024-09-02 09:45:00 2024-09-02 09:45:00 Outpatient R STEPHANIE HICKS [facility] [id number] [facility] 2024-05-16 00:00:00 2024-05-16 15:58:25 Telephone Ena Small [facility] NET APPLICATION SUPPORT SPECIALIST [facility] CHILD [facility] 1..840.114 350.1.13.10 4.2.7.2.686 [id number] [facility] 2024-05-15 00:00:00 2024-05-15 07:53:35 Case Management Ena Small [facility] NET APPLICATION SUPPORT SPECIALIST [facility] CHILD [facility] 1.2840.114 350.1.13.10 4.2.7.2.686 [id number] [facility] 2024-05-13 12:45:00 2024-05-13 13:28:19 Outpatient R STEPHANIE HICKS [facility] [id number] [facility] 2024-05-13 12:45:00 2024-05-13 13:00:00 Office Visit Jerome Hicksola Beatriz [facility] NET APPLICATION SUPPORT SPECIALIST [facility] 1.2.840.114 350.1.13.10 4.2.7.2.686 [id number] [facility] 2024-04-10 15:15:00 2024-04-10 15:15:00 Outpatient SHELBY MAO [facility] [id number] [facility] 2024-04-08 21:43:00 2024-04-09 01:18:00 Emergency EM Flor Rouse [facility] [id number] [facility] 2024-02-15 00:00:00 2024-02-15 00:00:00 Elise Hernandez MD: [address] [place] [address], [address], [place] [address] , Ph. [phone] [facility] [id number] [facility] 2024-02-01 14:23:00 2024-02-01 14:23:00 Outpatient ELISE IRBY [facility] [id number] [facility] 2024-02-01 00:00:00 2024-02-01 00:00:00 Elise Hernandez MD: [address] [place] [address], [address], [place] [address] , Ph. [phone] [facility] [id number] [facility] 2024-01-31 15:00:00 2024-01-31 15:00:00 Outpatient ELISE IRBY [facility] [id number] [facility] 2024-01-31 00:00:00 2024-01-31 00:00:00 Elise Hernandez MD: [address] [place] [address], [address], [place] [address] , Ph. [phone] [facility] [id number] [facility] 2024-01-29 00:00:00 2024-01-29 00:00:00 Outpatient White_M [facility] [id number] [facility] 2024-01-25 14:19:00 2024-01-25 14:19:00 Outpatient JANE CHARLES [facility] [id number] [facility] 2024-01-23 09:29:00 2024-01-23 09:29:00 Outpatient [facility] [id number] [facility] 2024-01-23 00:00:00 2024-01-23 00:00:00 Jane Titus IGNITER ASSEMBLER-BC: [address] [facility], [address], [place] [address] , Ph. [phone] [facility] [place] [place] [id number] [facility] 2024-01-22 08:15:00 2024-01-22 08:15:00 Outpatient R ENA SMALL [facility] [id number] [facility] 2024-01-16 00:00:00 2024-01-16 00:00:00 Outpatient White[facility]M [facility] [id number] [facility] 2024-01-11 14:00:00 2024-01-11 14:00:00 Outpatient R UNKNOWN, ATTENDING [facility] [id number] [facility] 2024-01-11 11:00:00 2024-01-11 11:20:14 Outpatient R RADHA JAMES [facility] [id number] [facility] 2024-01-11 11:00:00 2024-01-11 11:20:14 Urgent Care Radha James Unknown, Attending PENDING SALE TO [facility] 1.2.840.114 350.1.13.10 4.2.7.2.686 [id number] [facility] 2023-10-24 13:00:00 2023-10-24 13:27:23 Outpatient R DARVINBOBBI RADHA [facility] [id number] [facility] 2023-10-24 13:00:00 2023-10-24 13:27:23 Urgent Care Radha James Unknown, [facility] 1.114 350.1.13.10 4.2.7.2.686 [id number] 370 [id number] [facility] 2023-10-24 00:00:00 2023-10-24 00:00:00 Orders Only Doctor Unassigned, [place] [facility] 1.114 350.1.13.10 4.2.7.2.686 [id number] [facility] 2023-04-23 13:15:00 2023-04-23 13:15:00 Outpatient R STEPHANIE HICKS [facility] [id number] [facility] 2023-04-02 14:30:00 2023-04-02 14:30:00 Outpatient R IVY MONTEJO [facility] [id number] [facility] 2023-03-31 00:00:00 2023-03-31 00:00:00 Patient Secure Msg Ena Small [facility] NET APPLICATION SUPPORT SPECIALIST [facility] MATERNAL & CHILD [facility] 1..114 350.1.13.10 4.2.7.2.686 [id number] 107 [id number] [facility] 2023-03-02 00:00:00 2023-03-02 00:00:00 Case Management Ena Small [facility] NET APPLICATION SUPPORT SPECIALIST [facility] & CHILD [facility] 1.840.114 350.1.13.10 4.2.7.2.686 [id number] 107 [id number] [facility] 2023-03-02 00:00:00 2023-03-02 00:00:00 Telephone Stephanie Hicks [facility] NET APPLICATION SUPPORT SPECIALIST [facility] CHILD [facility] 1.2.840.114 350.1.13.10 4.2.7.2.686 [id number] 107 [id number] [facility] 2023-03-02 00:00:00 2023-03-02 00:00:00 Patient Secure Msg Ena Small [facility] NET APPLICATION SUPPORT SPECIALIST [facility] MATERNAL & CHILD [facility] 1.2.840.114 350.1.13.10 4.2.7.2.686 [id number] 107 [id number] [facility] 2023-02-28 07:45:00 2023-02-28 08:57:53 Outpatient ENA CONTEH [facility] [id number] [facility] 2023-02-28 07:45:00 2023-02-28 08:57:53 Office Visit Ena Small [facility] NET APPLICATION SUPPORT SPECIALIST [facility] CHILD [facility] 1.2.840.114 350.1.13.10 4.2.7.2.686 [id number] 107 [id number] [facility] 2023-02-28 00:00:00 2023-02-28 00:00:00 Orders Only Doctor Unassigned, [place] [facility] 1.2.840.114 350.1.13.10 4.2.7.2.686 [id number] [facility] 2023-01-30 14:45:00 2023-01-30 14:45:00 Outpatient ENA CONTEH [facility] [id number] [facility] 2022-12-19 14:30:00 2022-12-19 14:30:00 Outpatient VELIA BAINS [facility] [id number] [facility] 2022-11-16 00:00:2022-11-16 00:00:00 Outpatient White_M MMG MMG [id number] [facility] 2022-11-16 00:00:00 2022-11-16 00:00:00 SKYLAR GrayPBC: [address] [facility] [facility] [address], [place] [address] , Ph. [phone] [facility] [id number] [facility] 2022-11-02 15:26:00 2022-11-02 15:26:00 Outpatient [facility] [id number] [facility] 2022-11-02 00:00:00 2022-11-02 00:00:00 Jane Titus IGNITER ASSEMBLER-BC: [address], [place] [address] , Ph. [phone] MM[facility] [id number] [facility] 2022-10-14 00:00:00 2022-10-14 00:00:00 Orders Only Doctor Unassigned, [place] [facility] 1.2.840.114 350.1.13.10 4.2.7.2.686 [id number] [facility] 2022-10-12 00:00:00 2022-10-12 00:00:00 Outpatient White_M MMG MMG [id number] [facility] 2022-10-12 00:00:00 2022-10-12 00:00:00 Outpatient White_M MMG MMG [id number] [facility] 2022-10-12 00:00:00 2022-10-12 00:00:00 SKYLAR GrayPBC: [address] [facility] [address], [place] [address] , Ph. [phone] MM[facility] [id number] [facility] 2022-10-06 09:00:00 2022-10-06 09:00:00 Outpatient R STEPHANIE HICKS [facility] [id number] [facility] 2022-09-12 15:04:00 2022-09-12 15:04:00 Outpatient [facility] [id number] [facility] 2022-09-12 00:00:00 2022-09-12 00:00:00 Outpatient Jose Raul [facility] [id number] [facility] 2022-09-12 00:00:00 2022-09-12 00:00:00 Jane Ariela IGNITER ASSEMBLER-BC: [address] [facility] [address], [place] [address] , Ph. [phone] MM[facility] [id number] [facility] 2022-07-07 14:45:00 2022-07-07 15:27:14 Office Visit Stephanie Hicks [facility] NET APPLICATION SUPPORT SPECIALIST [facility] CHILD [facility] 1..840.114 350.1.13.10 4.2.7.2.686 [id number] 107 [id number] [facility] 2022-07-07 14:45:00 2022-07-07 15:27:14 Outpatient R STEPHANIE HICKS [facility] [id number] [facility] 2022-07-07 14:45:00 2022-07-07 14:45:00 Outpatient R STEPHANIE HICKS [facility] [id number] [facility] 2022-07-07 08:15:00 2022-07-07 08:15:00 Outpatient R RICHARD AMAYA [facility] [id number] [facility] 2022-06-27 00:00:00 2022-06-27 00:00:00 Patient Secure Msg Stephanie Hicks [facility] NET APPLICATION SUPPORT SPECIALIST [facility] CHILD [facility] 1..840.114 350.1.13.10 4.2.7.2.686 [id number] 107 [id number] [facility] 2022-06-21 10:30:00 2022-06-21 11:49:35 Office Visit Stephanie Hicks [facility] NET APPLICATION SUPPORT SPECIALIST [facility] CHILD [facility] 1..840.114 350.1.13.10 4.2.7.2.686 [id number] 107 [id number] [facility] 2022-06-21 10:30:00 2022-06-21 11:49:35 Outpatient R STEPHANIE HICKS [facility] [id number] [facility] 2022-06-21 10:30:00 2022-06-21 10:30:00 Outpatient R STEPHANIE HICKS [facility] [id number] [facility] 2022-06-19 10:15:00 2022-06-19 10:15:00 Outpatient R STEPHANIE HICKS [facility] [id number] [facility] 2022-06-16 14:00:00 2022-06-16 14:00:00 Outpatient R STEPHANEI HICKS [facility] [id number] [facility] 2022-06-16 00:00:00 2022-06-16 00:00:00 Telephone Stephanie Hicks [facility] NET APPLICATION SUPPORT SPECIALIST [facility] CHILD [facility] .2.840.114 350.1.13.10 4.2.7.2.686 [id number] 107 [id number] [facility] 2022-04-25 08:15:00 2022-04-25 08:15:00 Outpatient R STEPHANIE HICKS [facility] [id number] [facility] 2022-04-18 14:15:00 2022-04-18 14:15:00 Outpatient R STEPHANIE HICKS [facility] [id number] [facility] 2022-04-14 00:00:00 2022-04-14 00:00:00 Telephone Stephanie Hicks [facility] NET APPLICATION SUPPORT SPECIALIST [facility] CHILD [facility] 1.2.840.114 350.1.13.10 4.2.7.2.686 [id number] 107 [id number] [facility] 2022-04-14 00:00:00 2022-04-14 00:00:00 Patient Secure Msg Kurt Stephanie Henderson [facility] NET APPLICATION SUPPORT SPECIALIST [facility] CHILD [facility] 1.2.840.114 350.1.13.10 4.2.7.2.686 [id number] 107 [id number] [facility] 2022-04-04 00:00:00 2022-04-04 00:00:00 Patient Secure Msg Stephanie Hicks [facility] NET APPLICATION SUPPORT SPECIALIST [facility] CHILD [facility] 1.2.840.114 350.1.13.10 4.2.7.2.686 [id number] 107 [id number] [facility] 2022-04-03 00:00:00 2022-04-03 00:00:00 Patient Secure Msg Stephanie Hicks [facility] NET APPLICATION SUPPORT SPECIALIST [facility] CHILD [facility] 1.2.840.114 350.1.13.10 4.2.7.2.686 [id number] 107 [id number] [facility] 2022-04-03 00:00:00 2022-04-03 00:00:00 Telephone Stephanie Hicks [facility] NET APPLICATION SUPPORT SPECIALIST [facility] CHILD [facility] 1.2.840.114 350.1.13.10 4.2.7.2.686 [id number] 107 [id number] [facility] 2022-03-31 16:00:00 2022-03-31 16:29:52 [id number] 2022-03-31 16:00:00 2022-03-31 16:29:52 Office Visit Stephanie Hicks [facility] NET APPLICATION SUPPORT SPECIALIST [facility] CHILD [facility] 1.2.84.114 350.1.13.10 4.2.7.2.686 [id number] 107 [id number] [facility] 2022-03-31 00:00:00 2022-03-31 00:00:00 Orders Only Doctor Unassigned, [place] [facility] 1.0.114 350.1.13.10 4.2.7.2.686 [id number] [facility] 2022-01-30 13:00:00 2022-01-30 13:00:00 Outpatient R KARLA BURRELL [facility] [id number] [facility] 2021-11-12 00:00:00 2021-11-12 00:00:00 Patient Secure Msg Doctor Unassigned, [place] [facility] 1.840.114 350.1.13.10 4.2.7.2.686 [id number] [facility] 2021-11-11 14:00:00 2021-11-11 14:00:00 Outpatient R STEPHANIE HICKS [facility] [id number] [facility] 2021-11-11 14:00:00 2021-11-11 14:00:00 Outpatient R STEPHANIE HICKS [facility] [id number] [facility] 2021-10-28 13:45:00 2021-10-28 14:59:43 Outpatient R STEPHANIE HICKS [facility] [id number] [facility] 2021-10-28 13:45:00 2021-10-28 14:59:43 Office Visit Stephanie Hicks [facility] NET APPLICATION SUPPORT SPECIALIST [facility] MATERNAL & CHILD [facility] 1.84.114 350.1.13.10 4.2.7.2.686 [id number] 107 [id number] [facility] 2021-05-25 00:00:00 2021-05-25 00:00:00 Telephone Stephanie Hicks [facility] NET APPLICATION SUPPORT SPECIALIST [facility] & CHILD [facility] 1..840.114 350.1.13.10 4.2.7.2.686 [id number] 107 [id number] [facility] 2021-05-24 15:15:00 2021-05-24 15:15:00 Outpatient R STEPHANIE HICKS [facility] [id number] [facility] 2021-05-11 16:00:00 2021-05-11 16:00:00 Outpatient R STEPHANIE HICKS [facility] [id number] [facility] 2021-04-26 00:00:00 2021-04-26 00:00:00 Telephone Stephanie Hicks [facility] 1..840.114 350.1.13.10 4.2.7.2.686 [id number] 107 [id number] [facility] 2021-04-14 13:45:00 2021-04-14 13:45:00 Outpatient P [facility] [id number] [facility] 2021-04-05 15:45:00 2021-04-05 15:45:00 Outpatient R STEPHANIE HICKS [facility] [id number] [facility] 2021-04-04 00:00:00 2021-04-04 00:00:00 Patient Secure Msg Doctor Unassigned, [place] [facility] NET [facility] 1..840.114 350.1.13.10 4.2.7.2.686 [id number] 107 [id number] [facility] 2021-03-30 00:00:00 2021-03-30 00:00:00 Patient Secure Msg Doctor Unassigned, [place] [facility] 1..840.114 350.1.13.10 4.2.7.2.686 [id number] [facility] 2021-03-25 00:00:00 2021-03-25 00:00:00 Telephone Stephanie Hicks [facility] NET APPLICATION SUPPORT SPECIALIST [facility]ILD [facility] 1.2.840.114 350.1.13.10 4.2.7.2.686 [id number] 107 [id number] 2021-03-25 00:00:00 2021-03-25 00:00:00 Telephone Stephanie Hicks [facility] NET APPLICATION SUPPORT SPECIALIST [facility] CHILD [facility] 1.2.840.114 350.1.13.10 4.2.7.2.686 [id number] 107 [id number] [facility] 2021-03-24 10:30:23 2021-03-24 10:47:41 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 Representative Visit Lab, Ida Crespo [facility] NET APPLICATION SUPPORT SPECIALIST [facility] CHILD [facility] 1.2840.114 350.1.13.10 4.2.7.2.686 [id number] 107 [id number] [facility] 2021-03-24 10:30:00 2021-03-24 10:30:00 Outpatient R [facility] [id number] [facility] 2021-03-24 00:00:00 2021-03-24 00:00:00 Patient Secure Msg Doctor Unassigned, [place] [facility] 1.840.114 350.1.13.10 4.2.7.2.686 [id number] [facility] 2021-03-24 00:00:00 2021-03-24 00:00:00 Telephone Stephanie Hicks [facility] NET APPLICATION SUPPORT SPECIALIST [facility] CHILD [facility] 1.2840.114 350.1.13.10 4.2.7.2.686 [id number] 107 [id number] [facility] 2021-03-23 00:00:00 2021-03-23 00:00:00 Patient Secure Msg Richard Amaya R [facility] NET APPLICATION SUPPORT SPECIALIST [facility] CHILD [facility] 1.2840.114 350.1.13.10 4.2.7.2.686 [id number] 107 [id number] [facility] 2021-03-22 15:10:35 2021-03-22 15:25:35 Initial Visit Stephanie Hicks [facility] NET APPLICATION SUPPORT SPECIALIST [facility] MATERNAL & CHILD [facility] 1.2.840.114 350.1.13.10 4.2.7.2.686 [id number] 107 [id number] [facility] 2021-03-22 15:00:00 2021-03-22 15:00:00 Outpatient R STEPHANIE HICKS [facility] [id number] [facility] 2021-03-22 00:00:00 2021-03-22 00:00:00 Orders Only Doctor Unassigned, [place] [facility] 1.2.840.114 350.1.13.10 4.2.7.2.686 [id number] [facility] 2021-02-23 13:08:12 2021-02-23 13:35:01 Office Visit Richard Amaya [facility] NET APPLICATION SUPPORT SPECIALIST [facility] 1.2.840.114 350.1.13.10 4.2.7.2.686 [id number] 107 [id number] [facility] 2021-02-23 13:00:00 2021-02-23 13:00:00 Outpatient R RICHARD AMAYA [facility] [id number] [facility] 2021-02-16 09:30:00 2021-02-16 09:30:00 Outpatient R [facility] [id number] [facility] 2021-02-16 09:30:00 2021-02-16 09:30:00 Outpatient R RICHARD AMAYA [facility] [id number] [facility] 2021-02-14 00:00:00 2021-02-14 00:00:00 Patient Secure Msg Doctor Unassigned, [place] [facility] NET APPLICATION SUPPORT SPECIALIST [facility] 1.840.114 350.1.13.10 4.2.7.2.686 [id number] 107 [id number] [facility] 2021-02-14 00:00:00 2021-02-14 00:00:00 Patient Secure Msg Doctor Unassigned, [place] [facility] 1.2840.114 350.1.13.10 4.2.7.2.686 [id number] [facility] 2021-02-02 10:05:24 2021-02-02 11:11:24 Routine Visit Richard Amaya [facility] NET APPLICATION SUPPORT SPECIALIST [facility] 1..114 350.1.13.10 4.2.7.2.686 [id number] 107 [id number] [facility] 2021-02-02 10:00:00 2021-02-02 10:00:00 Outpatient RICHARD GRAVES [facility] [id number] [facility] 2021-02-02 00:00:00 2021-02-02 00:00:00 Orders Only Doctor Unassigned, [place] [facility] 1.2.114 350.1.13.10 4.2.7.2.686 [id number] [facility] 2021-02-01 14:45:00 2021-02-01 14:45:00 Outpatient RICHARD GRAVES [facility] [id number] [facility] 2021-01-31 13:45:00 2021-01-31 13:45:00 Outpatient RICHARD GRAVES [facility] [id number] [facility] 2021-01-11 00:00:00 2021-01-11 00:00:00 Patient Outreach Pardeep Amaro [facility] 1.0.114 350.1.13.10 4.2.7.2.686 [id number] [facility] 2021-01-10 14:26:11 2021-01-10 15:14:43 Initial Visit Richard Amaya Kinsey [facility] NET APPLICATION SUPPORT SPECIALIST [facility] MATERNAL & CHILD [facility] 1.114 350.1.13.10 4.2.7.2.686 [id number] 107 [id number] [facility] 2021-01-10 14:00:00 2021-01-10 14:00:00 Outpatient R RICHARD AMAYA [facility] [id number] [facility] 2021-01-10 00:00:00 2021-01-10 00:00:00 Orders Only Doctor Unassigned, [place] [facility] 1.114 350.1.13.10 4.2.7.2.686 [id number] [facility] 2021-01-03 14:00:00 2021-01-03 14:00:00 Outpatient R [facility] [id number] [facility] 2021-01-03 12:45:00 2021-01-03 12:45:00 Outpatient R RICHARD AMAYA [facility] [id number] [facility] 2020-12-28 13:15:00 2020-12-28 13:15:00 Outpatient R JACY AMAYAJAYA [facility] [id number] [facility] 2020-11-29 00:00:00 2020-11-29 00:00:00 Telephone Darian Amayaelkin [facility] NET APPLICATION SUPPORT SPECIALIST [facility] CHILD [facility] 1..114 350.1.13.10 4.2.7.2.686 [id number] 107 [id number] [facility] 2020-11-24 14:45:48 2020-11-24 15:26:28 Office Visit Darian Amayaelkin [facility] NET APPLICATION SUPPORT SPECIALIST [facility] CH[facility] 1.114 350.1.13.10 4.2.7.2.686 [id number] 107 [id number] [facility] 2020-11-24 14:45:00 2020-11-24 14:45:00 Outpatient RICHARD GRAVES [facility] [id number] [facility] 2020-11-24 00:00:00 2020-11-24 00:00:00 Orders Only Doctor Unassigned, [place] [facility] 1.2.840.114 350.1.13.10 4.2.7.2.686 [id number] [facility] 2020-09-14 13:30:00 2020-09-14 13:30:00 Outpatient RICHARD GRAVES [facility] [id number] [facility] 2020-09-13 00:00:00 2020-09-13 00:00:00 Richard Lombardo [facility] NET APPLICATION SUPPORT SPECIALIST [facility] MATERNAL & CHILD [facility] 1.2.840.114 350.1.13.10 4.2.7.2.686 [id number] 107 [id number] [facility] 2020-09-09 15:00:00 2020-09-09 15:00:00 Outpatient RICHARD GRAVES [facility] [id number] [facility] 2020-09-01 12:45:00 2020-09-01 12:45:00 Outpatient RICHARD GRAVES [facility] [id number] [facility] 2020-09-01 12:45:00 2020-09-01 12:45:00 Outpatient RICHARD GRAVES [facility] [id number] [facility] 2020-07-29 09:45:00 2020-07-29 09:45:00 Outpatient STEPHANIE BAKER [facility] [id number] [facility] 2020-07-29 09:45:00 2020-07-29 09:45:00 Outpatient STEPHANIE BAKER [facility] [id number] [facility] 2020-06-08 10:45:00 2020-06-08 10:45:00 Outpatient R STEPHANIE HICKS [facility] [id number] [facility] 2020-06-08 10:45:00 2020-06-08 10:45:00 Outpatient R STEPHANIE HICKS [facility] [id number] [facility] 2020-04-13 11:00:57 2020-04-13 11:44:15 Office Visit Richard Amaya [facility] NET APPLICATION SUPPORT SPECIALIST [facility] CHILD [facility] .114 350.1.13.10 4.2.7.2.686 [id number] 107 [id number] [facility] 2020-04-13 11:00:00 2020-04-13 11:00:00 Outpatient R RICHARD AMAYA [facility] [id number] [facility] 2020-04-13 09:45:00 2020-04-13 09:45:00 Outpatient R IDA VARELA [facility] [id number] [facility] 2020-03-09 10:30:00 2020-03-09 10:30:00 Outpatient R RICHARD AMAYA [facility] [id number] [facility] 2020-03-04 00:00:00 2020-03-04 00:00:00 Telephone Ida Varela [facility] NET APPLICATION SUPPORT SPECIALIST [facility] CHILD [facility] 840.114 350.1.13.10 4.2.7.2.686 [id number] 107 [id number] [facility] 2020-01-12 15:30:00 2020-01-12 15:30:00 Outpatient R IDA VARELA [facility] [id number] [facility] 2020-01-07 00:00:00 2020-01-07 00:00:00 Patient Secure Msg Doctor Unassigned, [place] [facility] NET APPLICATION SUPPORT SPECIALIST [facility] CHILD [facility] .840.114 350.1.13.10 4.2.7.2.686 [id number] 107 [id number] [facility] 2020-01-05 13:19:07 2020-01-05 14:07:46 Office Visit Stephanie Hicks [facility] NET APPLICATION SUPPORT SPECIALIST [facility] CHILD [facility] 1.840.114 350.1.13.10 4.2.7.2.686 [id number] 107 [id number] [facility] 2020-01-05 13:15:00 2020-01-05 13:15:00 Outpatient R STEPHANIE HICKS [facility] [id number] [facility] 2019-12-12 08:00:00 2019-12-12 08:00:00 Outpatient R RICHARD AMAYA [facility] [id number] [facility] 2019-12-11 00:00:00 2019-12-11 00:00:00 Patient Secure Msg Ida Varela [facility] [place] [employer] APPLICATION SUPPORT SPECIALIST [facility] 1.0.114 350.1.13.10 4.2.7.2.686 [id number] 107 [id number] [facility] 2019-12-08 11:15:24 2019-12-08 11:43:05 Office Visit Richard Amaya [facility] [place] [employer] SU[employer] SPECIALIST [facility] 1.0.114 350.1.13.10 4.2.7.2.686 [id number] 107 [id number] [facility] 2019-12-08 00:00:00 2019-12-08 00:00:00 Orders Only Doctor Unassigned, [place] [facility] 1.840.114 350.1.13.10 4.2.7.2.686 [id number] [facility] 2019-11-28 00:00:00 2019-11-28 00:00:00 Telephone Ida Varela [facility] [place] [employer] SPECIALIST [facility] 1.840.114 350.1.13.10 4.2.7.2.686 [id number] 107 [id number] [facility] 2019-11-25 08:40:20 2019-11-25 09:30:23 Office Visit Ida Varela [facility] [place] [employer] SUPPORT SPECIALIST [facility] 1.2.840.114 350.1.13.10 4.2.7.2.686 [id number] 107 [id number] [facility] 2019-11-25 00:00:00 2019-11-25 00:00:00 Telephone Ida Varela [facility] [place] [employer] SUPPORT SPECIALIST [facility] 1.2.840.114 350.1.13.10 4.2.7.2.686 [id number] 107 [id number] [facility] 2019-11-05 00:00:00 2019-11-05 00:00:00 Telephone Stephanie Hicks [facility] 1.2.840.114 350.1.13.10 4.2.7.2.686 [id number] 107 [id number] [facility] 2019-06-17 12:53:35 2019-06-17 13:48:17 Office Visit Ida Varela [facility] 1.2.840.114 350.1.13.10 4.2.7.2.686 [id number] 107 [id number] [facility] 2019-06-17 00:00:00 2019-06-17 00:00:00 Orders Only Doctor Unassigned, [place] [facility] 1.2.840.114 350.1.13.10 4.2.7.2.686 [id number] [facility] Results Test Description Test Time Test Comments Results Result [facility] [id number] 08:28:00* Test Item Value Reference Range Interpretation Comme nts ABO & RH (test code = 20) A POSITIVE IAT (test code = 1185) Negative [facility] Specific Lupdxrt3198-65-29 21:18:00* Test Item Value Reference Range Interpretation Comme [...] = 3257) na Negative - Negati ve [facility] LAB [id number] 16:12:11Ordered by an unspecified provider.[facility] Urinalysis w/o Specific Pvrnhcs5414-93-69 18:03:00* Test Item Value Reference Range Interpretation [...] internal controls Lab Interpretation (test code = 89380-9) Normal [facility] LAB [id number] 17:40:23Ordered by an unspecified provider.[facility] 2024-12-18 16:27:00* Test Item Value Reference Range Interpretation Comme nts POCT PREG (test code = 1605) Positive On board controls acceptable with C Line (test code = 3574) Yes POCT PREG LOT # (test code = 3575) POCT PREG TEST DATE ( test code = 3576) [facility] Urinalysis w/o Specific Ibsatln8387-50-19 16:26:00* Test Item Value Reference Range Interpretation [...] = 3257) na Negative - Negati ve [facility] Njzc1204-80-44 19:52:00* Test Item Value Reference Range Interpretation Comme nts POCT PREG (test code = 1605) Negative On board controls acceptable with C Line (test code = 3574) Yes POCT PREG LOT # (test code = 3575) POCT PREG TEST DATE ( test code = 3576) [facility] [id number] 23:45:00* Test Item Value Reference Range Interpretation [...] milliInternationalunits/mL SHOULD BE CONSIDERED NEGATIVE - DUP AB/PEL/SC/[id number] 23:00:00 [facility] : 1995 Sex: FPatient Name: DEREK GARCIA Unit No: [id number] EXAMS: CPT CODE: [id number] DUP AB/PEL/SC/LTD 49605 EXAM: - US PREG EVAL 1ST TRIMTR, [...] Luma Watkins RDMS Probe: Trnscrbd D/ (2300) BrooklynHMS3 Orig Print D/T: S: 04/08/2024 (2304) [facility] NAME: DEREK GARCIA Radiology Department PHYS: KHE.01 Flor Rouse MD [address] : 1995 AGE: 28 SEX: F [place], [place] [address] LOC: OfeliaERS PHONE #: [phone] EXAM DATE: 04/08/2024 STATUS: REG ER FAX #: [phone] RAD NO: Page 1 Signed Report Patient Name: DEREK MANCILLA Unit No: [id number] EXAMS: CPT CODE: [id number] DUP AB/PEL/SC/LTD 77171 (Continued) [facility] NAME: JULIODEREK Radiology Department PHYS: Apolinar Zamora MD [address] : 1995 AGE: 28 SEX: F [place], [place] [address] LOC: OfeliaERS PHONE #: [phone] EXAM DATE: 04/08/2024 STATUS: REG ER FAX #: [phone] RAD NO: Page 2 Signed Report- US PREG UT [id number] 23:00:00 [facility] 1995 Sex: FPatient Name: DEREK GARCIA Unit No: [id number] EXAMS: CPT CODE: [id number] US PREG UT TRANSVAGINAL 15305 EXAM: - US PREG EVAL 1ST TRIMTR, [...] Rouse MD Technologist: Luma Watkins RDMS Probe: [id number] Trnscrbd D/ (2300) t.SDR.HMS3 Orig Print D/T: S: 04/08/2024 (2304) [facility] NAME: DEREK GARCIA Radiology Department PHYS: Flor Rouse MD [address] : 1995 AGE: 28 SEX: F [place] [address] LOC: F.ERS PHONE#: [phone] EXAM DATE: 04/08/2024 STATUS: REG ER FAX #: [phone] RAD NO: Page 1 Signed Report Patient Name: DEREK GARCIA Unit No: [id number] EXAMS: CPT CODE: [id number] [facility] TRANSVAGINAL 65469 (Continued) [facility] NAME: DEREK GARCIA Radiology Department PHYS: IMELDA Flor Rouse MD [address] : 1995 AGE: 28 SEX: F [place] [address] LOC: JA PHONE #: [phone] EXAM DATE: 04/08/2024 STATUS: RENAY DYKES FAX #: [phone] RAD NO: Page 2 Signed Report- US PREG EVAL 1ST [id number] 23:00:00[facility] : 1995 Sex: FPatient Name: DEREK GARCIA Unit No: [id number] EXAMS: CPT CODE: [id number] US PREG EVAL 1ST TRIMTR 26045 EXAM: - US PREG EVAL 1ST TRIMTR, [...] t.NIGHATR.HMS3 Orig Print D/T: S: 04/08/2024 (2304) [facility] NAME: JULIODEREK Radiology Department PHYS: IMELDABernice Beck Flor Rouse MD [address] : 1995 AGE: 28 SEX: F [place] [address] LOC: OfeliaERS PHONE #: [phone] EXAM DATE: 04/08/2024 STATUS: REG ER FAX #: [phone] RAD NO: Page 1 Signed Report Patient Name: DEREK GARCIA Unit No: [id number] EXAMS: CPT CODE: [id number] US PREG EVAL 1ST TRIMTR 25006 (C ontinued) [facility] NAME: DEREK GARCIA Radiology Department PHYS: ROSALINE Flor Rouse MD [address] : 1995 AGE: 28 SEX: F [place] [address] LOC: OfeliaERS PHONE #: [phone] EXAM DATE: 04/08/2024 STATUS: REG ER FAX #: [phone] RAD NO: Page 2 Signed ReportMicroscopic observation [Identifier] in Vaginal fluid by Wet hemvtvnzips9870-96-28 16:35:18* Test Item Value Reference Range Interpretation Comme nts Clue Cells (test code = Clue Cells) negative WBCs (test code = WBCs) positive Trichomonads (test code = Trichomonads) negative Epithelial cells (test code = Epithelial cells) normal RBCs (test code = RBCs) negative [facility] macro (dipstick) panel - Ltbne2087-55-54 14:37:04* Test Item Value Reference Range Interpretation Comme nts Leukocytes (test code = Leukocytes) Negative Nitrite (test code = Nitrite) negative Urobilinogen (test code = Urobilinogen) .2 Protein (test code = Protein) Negative pH (test code = pH) 6.0 Blood (test code = Blood) Non-Hemolyzed: Trace Specific [place] (test code = Specific [place]) 1.025 Ketone (test code = Ketone) Negative Bilirubin (test code = Bilirubin) Negative Glucose (test code = Glucose) Negative Appearance (test code = Appearance) Clear Color (test code = Color) Yellow [facility] W Auto Differential panel - Lqwiu6269-80-24 14:43:00 * Test Item Value Reference Range [...] NRBC# (test code = NRBC#) 0 K/uL [facility]ville[facility]inalysis macro (dipstick) panel - Onxeu9209-44-25 14:01:32* Test Item Value Reference Range Interpretation Comme nts Leukocytes (test code = Leukocytes) Small Nitrite (test code = Nitrite) negative Urobilinogen (test code = Urobilinogen) .2 Protein (test code = Protein) 30 pH (test code = pH) 5.0 Blood (test code = Blood) Moderate Specific [place] (test code = Specific [place]) 1.025 Ketone (test code = Ketone) Large Bilirubin (test code = Bilirubin) Negative Glucose (test code = Glucose) Negative Appearance (test code = Appearance) Clear Color (test code = Color) Yellow [facility]ville[facility]CG psqgsmkergxt2930-27-56 17:06:00* Test Item Value Reference Range Interpretation Comme nts HCG quantitative (test code = HCG quantitative) 8750.0 mIU/mL 0-5 H [facility]villeUrinalysis macro (dipstick) panel - Juhob2336-22-83 14:17:46* Test Item Value Reference Range Interpretation Comme nts Leukocytes (test code = Leukocytes) Small Nitrite (test code = Nitrite) negative Urobilinogen (test code = Urobilinogen) .2 Protein (test code = Protein) Negative pH (test code = pH) 7.0 Blood (test code = Blood) Non-Hemolyzed: Trace Specific [place] (test code = Specific [place]) 1.015 Ketone (test code = Ketone) Negative Bilirubin (test code = Bilirubin) Negative Glucose (test code = Glucose) Negative Appearance (test code = Appearance) Clear Color (test code = Color) Yellow [facility] zylrhqinpmzn8736-42-38 18:09:00* Test Item Value Reference Range Interpretation Comme nts HCG quantitative (test code = HCG quantitative) 1146.0 mIU/mL 0-5 H [facility] dztknlfogjob3469-09-22 11:06:00* Test Item Value Reference Range Interpretation Comme nts HCG quantitative (test code = HCG quantitative) 466.6 mIU/mL 0-5 H [facility] GreenvilleChoriogonadotropin.beta subunit [Units/volume] in Serum or Ktdfuc7718-35-59 11:06:00* Test Item Value Reference Range Interpretation Comme [facility] HCG quantitative (test code = HCG quantitative) 466.6 mIU/mL 0-5 H [facility]villepregnancy test, mxurc8627-41-04 09:36:27* Test Item Value Reference Range Interpretation Comme nts Test (test code = Test) positive [facility]villeUrinalysis macro (dipstick) panel - Repew7277-05-13 08:33:52* Test Item Value Reference Range Interpretation Comme nts Leukocytes (test code = Leukocytes) Negative Nitrite (test code = Nitrite) negative Urobilinogen (test code = Urobilinogen) .2 Protein (test code = Protein) Negative pH (test code = pH) 6.0 Blood (test code = Blood) Non-Hemolyzed: Trace Specific [place] (test code = Specific [place]) 1.025 Ketone (test code = Ketone) Negative Bilirubin (test code = Bilirubin) Negative Glucose (test code = Glucose) Negative Appearance (test code = Appearance) Clear Color (test code = Color) Yellow [facility] Eedg2389-51-61 16:22:00* Test Item Value Reference Range Interpretation Comme nts POCT PREG (test code = 1605) Negative On board controls acceptable with C Line (test code = 3574) Yes POCT PREG LOT # (test code = 3571) POCT PREG TEST DATE ( test code = 3576) Lab Interpretation (test cod e = 68935-2) Normal [facility] Urinalysis W Specific Yznsffd2205-14-37 16:19:00* Test Item Value Reference Range Interpretation [...] Cloudy Lab Interpretation (test cod e = 01569-4) Abnormal [facility] Sigd8549-70-65 19:24:00* Test Item Value Reference Range Interpretation Comme nts POCT PREG (test code = 1605) Negative On board controls acceptable with C Line (test code = 3574) Yes POCT PREG LOT # (test code = 3575) POCT PREG TEST DATE (test code = 3576) CECIL (test code = CECIL) accurate developme nt and interpretation of all internal controls Lab Interpretation (test code = 01215-4) Normal [facility] Zyuu0518-83-07 19:24:00* Test Item Value Reference Range Interpretation Comme nts POCT PREG (test code = 1605) Negative On board controls acceptable with C Line (test code = 3574) Yes POCT PREG LOT # (test code = 3575) POCT PREG TEST DATE (test code = 3576) CECIL (test code = CECIL) accurate developme nt and interpretation of all internal controls Lab Interpretation (test code = 30785-6) Normal [facility] Urinalysis W Specific Sizewwa8977-20-43 19:20:00* Test Item Value Reference Range Interpretation [...] internal controls Lab Interpretation (test code = 94844-6) Normal [facility] W Specific Wqockvv0407-21-17 19:20:00* Test Item Value Reference Range Interpretation [...] internal controls Lab Interpretation (test code = 43027-6) Normal [facility] ONLY - SYPHILIS IGG/[id number] 15:05:59* Test Item Value Reference Range Interpretation Comme nts Syphilis IgG/IgM (test code = 90623-0) Non-reactive Non-reactive CECIL (test code = CECIL) Non-reactive - No serologic evidence of T. pallidum infection. Cannot exclude incubating or early syphilis. Submit a second specimen in 2-4 weeks if syphilis is clinically suspected. Equivocal - Further testing to follow. Reactive - Further testing to follow. Lab Interpretation (test code = 62114-9) Normal [facility] ONLY - SYPHILIS IGG/[id number] 15:05:59* Test Item Value Reference Range Interpretation Comme nts Syphilis IgG/IgM (test code = 60430-9) Non-reactive Non-reactive CECIL (test code = CECIL) Non-reactive - No serologic evidence of T. pallidum infection. Cannot exclude incubating or early syphilis. Submit a second specimen in 2-4 weeks if syphilis is clinically suspected. Equivocal - Further testing to follow. Reactive - Further testing to follow. Lab Interpretation (test code = 93741-6) Normal [facility] ONLY - SYPHILIS IGG/[id number] 15:05:59* Test Item Value Reference Range Interpretation Comme nts Syphilis IgG/IgM (test code = 61926-5) Non-reactive Non-reactive CECIL (test code = CECIL) Non-reactive - No serologic evidence of T. pallidum infection. Cannot exclude incubating or early syphilis. Submit a second specimen in 2-4 weeks if syphilis is clinically suspected. Equivocal - Further testing to follow. Reactive - Further testing to follow. Lab Interpretation (test code = 36419-6) Normal [facility] 1/2 AG-AB WITH [id number] 06:58:27* Test Item Value Reference Range Interpretation Comme nts HIV Semi-quantitative (test code = 11115-8) 0.12 Negative CECIL (test code = CECIL) Non-reactive for HIV-1 antigen and HIV-1/HIV-2 antibodies. ?No laboratory evidence of HIV infection. ?Repeat in 2-4 weeks if acute HIV infection is suspected. [facility] 1/2 AG-AB WITH HJUFGF5036-04-91 06:58:27* Test Item Value Reference Range Interpretation Comme nts HIV Semi-quantitative (test code = 13903-4) 0.12 Negative CECIL (test code = CECIL) Non-reactive for HIV-1 antigen and HIV-1/HIV-2 antibodies. ?No laboratory evidence of HIV infection. ?Repeat in 2-4 weeks if acute HIV infection is suspected. [facility] WITH [id number] 06:58:27* Test Item Value Reference Range Interpretation Comme nts HIV Semi-quantitative (test code = 77175-8) 0.12 Negative CECIL (test code = CECIL) Non-reactive for HIV-1 antigen and HIV-1/HIV-2 antibodies. ?No laboratory evidence of HIV infection. ?Repeat in 2-4 weeks if acute HIV infection is suspected. [facility] [id number] 05:29:42* Test Item Value Reference Range Interpretation Comme nts HCV Ab (test code = 73267-3) Negative HCV Semi-Quantitative (test code = 91439-3) 0.01 [facility] CZHIWQLA2132-96-73 05:29:42* Test Item Value Reference Range Interpretation Comme nts HCV Ab (test code = 12217-3) Negative HCV Semi-Quantitative (test code = 10273-0) 0.01 [facility] [id number] 05:29:42* Test Item Value Reference Range Interpretation Comme nts HCV Ab (test code = 44205-5) Negative HCV Semi-Quantitative (test code = 28344-2) 0.01 [facility] HospitalGLYCOSYLATED HEMOGLOBIN (A1C)2023-03-01 05:25:25* Test Item Value Reference Range Interpretation Comme nts HGB A1C (test code = 4548-4) 5.3 % 4.0-5.7 CECIL (test code = CECIL) Reference RangesNormal: <5.7%Prediabetes: 5.7 - 6.4%Diabetes: > 6.5% Lab Interpretation (test code = 19103-7) Normal [facility]IN (A1C)2023-03-01 05:25:25* Test Item Value Reference Range Interpretation Comme [facility] HGB A1C (test code = 4548-4) 5.3 % 4.0-5.7 CECIL (test code = CECIL) Reference RangesNormal: <5.7%Prediabetes: 5.7 - 6.4%Diabetes: > 6.5% Lab Interpretation (test code = 31690-3) Normal [facility]IN (A1C)2023-03-01 05:25:25* Test Item Value Reference Range Interpretation Comme nts HGB A1C (test code = 4548-4) 5.3 % 4.0-5.7 CECIL (test code = CECIL) Reference RangesNormal: <5.7%Prediabetes: 5.7 - 6.4%Diabetes: > 6.5% Lab Interpretation (test code = 53200-7) Normal [facility] WITH [id number] 05:04:15* Test Item Value Reference Range Interpretation Comme nts WBC (test code = 6690-2) 9.14 See_Comment [Automated [employer]] The system which generated this result transmitted [...] 32.5 g/dL 31.6-35.1 RDW-SD (test code = 57650-8) 43.6 fL 39.0-49.9 RDW-CV (test code = 788-0) 12.8 % 12.0-15.5 PLT (test code = 777-3) 326 See_Comment [Automated [employer] ge] The system which generated this result transmitted reference range: 166 - 358 10*3/?L. The reference range was not used to interpret this result as normal/abnormal. MPV (test code = 16895-4) 10.1 fL 9.5-12.9 NRBC/100 WBC (test code = 1965172092) 0.0 See_Comment [Automated me ssage] The system which generated this result transmitted reference range: 0.0 - 10.0 /100 WBCs. The reference range was not used to interpret this result as normal/abnormal. NRBC x10^3 (test code = 5178628488) See_Comment [Automated messa ge] The system which generated this result transmitted reference range: 10*3/?L. The reference range was not used to interpret this result as normal/abnormal. GRAN MAT (NEUT) % (test code = 770-8) 59.5 % IMM GRAN % (test code = 5864982353) 0.10 % LYMPH % (test code = 736-9) 31.2 % MONO % (test code = 5905-5) 5.9 % EOS % (test code = 713-8) 2.8 % BASO % (test code = 706-2) 0.5 % GRAN MAT x10^3(ANC) (test code = 4133436585) 5.43 10*3/uL 1.88-7.09 IMM GRAN x10^3 (test code = 8927303314) 0.00-0.06 LYMPH x10^3 (test code = 731-0) 2.85 10*3/uL 1.32-3.29 MONO x10^3 (test code = 742-7) 0.54 10*3/uL 0.33-0.92 EOS x10^3 (test code = 711-2) 0.26 10*3/uL 0.03-0.39 BASO x10^3 (test code = 704-7) 0.05 10*3/uL 0.01-0.07 Lab Interpretation (test code = 69129-5) Abnormal [facility] WITH [id number] 05:04:15* Test Item Value Reference Range Interpretation [...] 32.5 g/dL 31.6-35.1 RDW-SD (test code = 71498-4) 43.6 fL 39.0-49.9 RDW-CV (test code = 788-0) 12.8 % 12.0-15.5 PLT (test code = 777-3) 326 See_Comment [Automated messa ge] The system which generated this result transmitted reference range: 166 - 358 10*3/?L. The reference range was not used to interpret this result as normal/abnormal. MPV (test code = 49186-2) 10.1 fL 9.5-12.9 NRBC/100 WBC (test code = 1326869938) 0.0 See_Comment [Automated [employer] ssage] The system which generated this result transmitted reference range: 0.0 - 10.0 /100 WBCs. The reference range was not used to interpret this result as normal/abnormal. NRBC x10^3 (test code = 3436427375) See_Comment [Automated [employer] ge] The system which generated this result transmitted reference range: 10*3/?L. The reference range was not used to interpret this result as normal/abnormal. GRAN MAT (NEUT) % (test code = 770-8) 59.5 % IMM GRAN % (test code = 3832788561) 0.10 % LYMPH % (test code = 736-9) 31.2 % MONO % (test code = 5905-5) 5.9 % EOS % (test code = 713-8) 2.8 % BASO % (test code = 706-2) 0.5 % GRAN MAT x10^3(ANC) (test code = 4070837133) 5.43 10*3/uL 1.88-7.09 IMM GRAN x10^3 (test code = 7588412934) 0.00-0.06 LYMPH x10^3 (test code = 731-0) 2.85 10*3/uL 1.32-3.29 MONO x10^3 (test code = 742-7) 0.54 10*3/uL 0.33-0.92 EOS x10^3 (test code = 711-2) 0.26 10*3/uL 0.03-0.39 BASO x10^3 (test code = 704-7) 0.05 10*3/uL 0.01-0.07 Lab Interpretation (test code = 56128-7) Abnormal [facility] WITH [id number] 05:04:15* Test Item Value Reference Range Interpretation Comme nts WBC (test code = 6690-2) 9.14 See_Comment [Automated [employer] ge] The system which generated this result transmitted reference range: 4.30 - 11.10 10*3/?L. The reference range was not used to interpret this result as normal/abnormal. RBC (test code = 789-8) 4.95 See_Comment [Automated [employer] ge] The system which generated this [...] 32.5 g/dL 31.6-35.1 RDW-SD (test code = 11954-1) 43.6 fL 39.0-49.9 RDW-CV (test code = 788-0) 12.8 % 12.0-15.5 PLT (test code = 777-3) 326 See_Comment [Automated messa ge] The system which generated this result transmitted reference range: 166 - 358 10*3/?L. The reference range was not used to interpret this result as normal/abnormal. MPV (test code = 22093-1) 10.1 fL 9.5-12.9 NRBC/100 WBC (test code = 4738261551) 0.0 See_Comment [Automated [employer] ssage] The system which generated this result transmitted reference range: 0.0 - 10.0 /100 WBCs. The reference range was not used to interpret this result as normal/abnormal. NRBC x10^3 (test code = 8127911974) See_Comment [Automated messa ge] The system which generated this result transmitted reference range: 10*3/?L. The reference range was not used to interpret this result as normal/abnormal. GRAN MAT (NEUT) % (test code = 770-8) 59.5 % IMM GRAN % (test code = 7651523678) 0.10 % LYMPH % (test code = 736-9) 31.2 % MONO % (test code = 5905-5) 5.9 % EOS % (test code = 713-8) 2.8 % BASO % (test code = 706-2) 0.5 % GRAN MAT x10^3(ANC) (test code = 4171647490) 5.43 10*3/uL 1.88-7.09 IMM GRAN x10^3 (test code = 2406451830) 0.00-0.06 LYMPH x10^3 (test code = 731-0) 2.85 10*3/uL 1.32-3.29 MONO x10^3 (test code = 742-7) 0.54 10*3/uL 0.33-0.92 EOS x10^3 (test code = 711-2) 0.26 10*3/uL 0.03-0.39 BASO x10^3 (test code = 704-7) 0.05 10*3/uL 0.01-0.07 Lab Interpretation (test code = 56694-9) Abnormal [facility] anticoagulant, xunwjp0107-58-50 14:10:00 * Test Item Value Reference Range [...] used to interpret this result as normal/abnormal. [facility]villeBeta 2 glycoprotein 1 IgG and IgM panel - Wuqsr5198-17-76 19:14:00* Test Item Value Reference Range Interpretation Comme nts beta 2 glyco,IgG (test code = beta 2 glyco,IgG) <9 0-20 beta 2 glyco,IgA (test code = beta 2 glyco,IgA) <9 0-25 beta 2 glycoprot,IgM (test c ode = beta 2 glycoprot,IgM) <9 0-32 [facility] GreenvilleCardiolipin IgG and IgM panel - Tkeyl3715-80-20 19:14:00 * Test Item Value Reference Range Interpretation Comme nts anticardiolipin Ab IgG (test code = anticardiolipin Ab IgG) <9 0-14 anticardiolipin Ab IgM (test code = anticardiolipin Ab IgM) <9 0-12 [facility]villePap w/rfx HPV if ASCUS+leukorrhea panel rfx vance [...] (test code = vance - swab) normal [facility]villeUrinalysis macro (dipstick) panel - Dmnqi9506-26-56 09:40:09* Test Item Value Reference Range Interpretation Comme nts Leukocytes (test code = Leukocytes) Trace Nitrite (test code = Nitrite) negative Urobilinogen (test code = Urobilinogen) .2 Protein (test code = Protein) Negative pH (test code = pH) 5.5 Blood (test code = Blood) Negative Specific [place] (test code = Specific [place]) 1.030 Ketone (test code = Ketone) Negative Bilirubin (test code = Bilirubin) Small Glucose (test code = Glucose) Negative Appearance (test code = Appearance) Cloudy Color (test code = Color) Yellow [facility] - cancer history assessment kolwps9261-83-67 08:33:00 * Test Item Value Reference Range Interpretation Comme nts [facility] [place] (test code = [facility] [place]) does not meet criteria [facility]ville[facility] + NG + TV, DNA, urine/cwau9363-83-03 00:00:00* Test Item Value Reference Range Interpretation Comme nts vance - swab (test code = vance - swab) normal gardnerella (test code = gardnerella) abnormal A CT/NG (test code = CT/NG) normal trichomonas vaginalis addon - swab (test code = trichomonas vaginalis addon - swab) normal [facility]villeUrinalysis macro (dipstick) panel - Ytkzy3992-67-98 14:03:06* Test Item Value Reference Range Interpretation Comme nts Leukocytes (test code = Leukocytes) Negative Nitrite (test code = Nitrite) negative Urobilinogen (test code = Urobilinogen) .2 Protein (test code = Protein) Negative pH (test code = pH) 6.0 Blood (test code = Blood) Negative Specific [place] (test code = Specific [place]) 1.030 Ketone (test code = Ketone) Negative Bilirubin (test code = Bilirubin) Negative Glucose (test code = Glucose) Negative Appearance (test code = Appearance) Clear Color (test code = Color) Yellow [facility]villePO[facility] [id number] 20:02:00* Test Item Value Reference Range Interpretation Comme nts POCT PREG (test code = 1605) Negative On board controls acceptable with C Line (test code = 3574) Yes POCT PREG LOT # (test code = 3575) POCT PREG TEST DATE ( test code = 3576) [facility] Notes Date/Time Note Provider Source 2025-02-27 16:13:16 TRANSVAGINAL CERCLAGE Primary Resident: Nle Roberson MD OB Faculty: BECKY SMITH OB Fellow: MICHEAL NUNEZ Gestational age: 18w2d Patient admitted for ultrasound indicated cerclage due to: funneling cervix measuring 0.66cm and visually dilated to 1cm FHT obtained prior to the procedure: Yes Indocin given: Yes Magnesium sulfate given: No Antibiotics given: Yes Anesthesia: spinal FHT obtained after procedure: Yes The patient was taken to the OR where anesthesia was found to be adequate. Patient was placed in dorsal lithotomy position in [place]. The bladder was drained with Red rubber catheter. The vagina and cervix were prepped in the normal sterile fashion for a vaginal procedure with antiseptic solution. The patient was draped in the normal sterile fashion. A cervicovaginal exam was performed which showed: cervix visually dilated to ~1cm with no prolapsing membranes Amniotic membranes prolapsed: No. Type of cerclage placed: Gonzalez Cerclage placement: Cervix was visualized with retractors and two ring forceps placed on cervical lips (anterior/posterior). Cervix was cleaned again with betadine. In a purse-string fashion, visualizing and avoiding the vesicocervical junction, Merseline tape was run circumferentially in counter clockwise direction around the cervix starting a 12 o'clock. Knot was tied at 12 o'clock. Cervical dilation at start of case was about 1 cm and after cinching of suture, dilation was closed. Hemostasis ensured. All instruments removed. Rectal exam revealed no sutures and instrument counts were correct. Procedure was considered terminate at this time. Complications: none EBL:<10cc The patient was taken to the RR in stable condition. Nel Roberson MD Cosigned by Becky Smith MD at 02/27/2025 8:01 PM CDT Associated attestation - Becky Smith MD - 02/27/2025 8:01 PM CDT I was scrubbed in for the entire case. No complications noted. I agree with Dr. Roberson' operative note. Becky Smith MD OBSTETRICS & GYNECOLOGY [facility] 2025-02-27 09:05:03 Problem: Discharge Planning - Antepartum Goal: Adequate for discharge Outcome: Progressing as expected Goal: Blood pressure within specified parameters Outcome: Progressing as expected Problem: Infection Risk Goal: Absence of infection Outcome: Progressing as expected Problem: Bleeding, Risk of Goal: Absence of impaired coagulation signs and symptoms Outcome: Progressing as expected Goal: Absence of active bleeding Outcome: Progressing as expected Problem: Falls, Risk of Goal: Absence of falls Outcome: Progressing as expected Rabia Basilio RN [facility] 2025-02-27 06:09:28 Problem: Discharge Planning - Antepartum Goal: Adequate for discharge Outcome: Progressing as expected Goal: Blood pressure within specified parameters Outcome: Progressing as expected Problem: Infection Risk Goal: Absence of infection Outcome: Progressing as expected Problem: Bleeding, Risk of Goal: Absence of impaired coagulation signs and symptoms Outcome: Progressing as expected Goal: Absence of active bleeding Outcome: Progressing as expected [facility] 2025-02-18 13:39:01 Name and verified. Pt advised of MsAfp negative. Verbalized understanding. OLYA CHEN RN 02/18/2025 1:39 PM Olya Chen RN [facility] 2025-02-18 11:31:26 Derek Garcia is a 29 year old female Patient stated that she would like to go over results. Please assist and thank you. Mami Telles [facility] 2025-02-17 15:50:25 Name and verified. Pt advised that result has not been reviewed by provider. Once reviewed, we will call her. Verbalized understanding. OLYA CHEN RN 02/17/2025 3:50 PM [facility] 2025-02-17 15:09:40 Derek Garcia is a 29 year old female ob patient called states she has concerns regarding her blood work. Asking to speak with the nurse or Dr. Today. Would like a call back. Nicki Christianson [facility] 2025-02-16 16:45:00 Images from the original note were not included. Pt verified she is 16 weeks. Venipuncture collection performed by clean technique on the right anticubitus. Total of 1 attempts were made. Slight pressure and a bandage/dressing were applied to the site(s). The patient experienced no complications. The following specimens were processed according to instructions and sent to [facility] laboratories per lab order on 02/16/2025: LT BLUE SST 1 RED LAV PPT DK GREEN (LiHep) DK GREEN (SodH) SHELLEY DK BLUE (K2) DK BLUE (S) ACD Blood Culture NIPT/NTD [facility] 2025-02-16 16:00:00 Age: [age] year old GA: [...] Follow-up in 4 weeks for visit with OPERATING ROOM RN Follow-up in 8 weeks for pedal visit with [facility] 2025-01-30 10:28:40 0945- Name and verified. Pt [...] understanding. OLYA CHEN RN 01/30/2025 10:33 AM [facility] 2025-01-30 09:10:03 Images from the original note were not included. Pt returning the call. T La Jacinto [facility] 2025-01-30 08:35:20 LM on for pt to return call. OLYA CHEN RN 01/30/2025 8:35 AM [facility] 2025-01-19 16:28:19 Received Horizon results via fax. Stamped and will be scanned/uploaded into pt's chart. [facility] 2025-01-16 12:45:00 Age: [age] year old GA: 12w2d PLAN 1. High-risk in first trimester 2. 12 weeks gestation of - POCT Urinalysis w/o Specific [place]- Negative protein and nitrates - OB Ultrasound [...] 4 weeks or prn Jad Padron DNP, BLAST FURNACE CHECKER-BC 01/16/2025 at 2:48 PM [facility] 2025-01-13 13:27:25 Received panorama results via fax. Stamped and uploaded to chart. Patient viewed results via [employer] portal. Dick Malave RN 01/13/2025 1:28 PM Dick Malave RN [facility] 2024-12-19 16:37:58 Name and verified. Pt stated [...] understanding. OLYA CHEN RN 12/19/2024 4:44 PM MIXER Olya Chen RN [facility] 2024-12-19 16:23:40 Derek Garcia is a 29 year old female Called the clinic earlier, was prescribed progesterone. Pt calling again to talk to a nurse she states she started spotting, she is concerned and will like a call back for advice MIXER Ursula Torrez [facility] 2024-12-19 14:06:59 Patient advised per herbert Blake to be seen in 2 weeks for usg. Appointment made Dick Malave RN 12/19/2024 2:07 PM MIXER Dick Malave RN [facility] 2024-12-19 13:55:41 Returned patients call regarding results [...] Malave RN 12/19/2024 1:57 PM [facility] 2024-12-19 12:09:06 Derek Garcia is a 29 year old female Calling to go over test results. Pt was advised respond time frame can be up to two business days. ER Vergara Torrez [facility] 2024-12-19 11:39:48 Pt would like to speak with a nurse about results. ER Larsen [facility] 2024-12-18 11:15:00 50 Glucola @ 1112. No issues. Pt finished @ 1112 Draw Time @ 1212. [facility] 2024-12-18 11:15:00 Images from the original note were not included. Venipuncture collection performed by clean technique on the right anticubitus. Total of 1 attempts were made. Slight pressure and a bandage/dressing were applied to the site(s). The patient experienced no complications. The following specimens were processed according to instructions and sent to [facility] laboratories per lab order on 12/18/2024: LT BLUE 3 SST 6 RED 1 LAV 2 PPT DK GREEN (LiHep) DK GREEN (SodH) SHELLEY DK BLUE (K2) DK BLUE (S) ACD Blood Culture NIPT/NTD [facility] 2024-12-18 11:15:00 Addended by: SHARIFA PAZ on: 12/18/2024 03:18 PM Modules accepted: Orders ER Boyce [facility] 2024-12-18 11:15:00 Addended by: SHARIFA PAZ on: 12/18/2024 06:24 PM Modules accepted: Orders [facility] 2024-12-18 10:00:00 Age: [age] year old GA: 8w1d by reported THOMAS Nausea without vomiting -Not bothersome -Discussed sharonda [id number] as needed. 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 Expectations for weight gain this include 15-25 pounds. Encouraged to call if have any additional questions or concerns. Discussed aneuploidy and carrier screening; patient opts for panorama/Horizon. Discussed with patient that she can have HEALTHY support with her during her delivery (which is subject to change). Declined flu vaccine today Follow-up in 4 weeks for visit with OPERATING ROOM RN Follow-up in 8 weeks for pedal visit with [facility] 2024-12-05 18:25:18 Registration called and said patient left because she was not getting and ultrasound. Patient eloped after being seen by provider. MIXER George Fajardo RN [facility] 2024-05-16 15:57:40 Called patient, notified patient positive for UTI, BV, and Yeast. Educated patient on medications, good perineal hygiene, and increasing fluids. Pt verbalized understanding. ISA GARCIA RN 05/16/2024 3:57 PM Isa Garcia RN [facility] 2024-05-16 14:34:04 Please call patient and let her know she has UTI, BV, and vaginal yeast. All erx sent. [facility] 2024-04-09 00:17:00 [facility] ([facility]) Hospitalist History Physical REPORT#:[id number] REPORT STATUS: Signed REPORT INITIALIZATION DATE:04/09/24 TIME: 16 PATIENT: DEREK GARCIA UNIT #: [id number] ROOM/BED: : 95 AGE: 28 SEX: F ATTEND: Flor Rouse MD ADM DT: AUTHOR: Rosaline Goss MD REPT SERVICE DT/TIME: 04/09/2416 * ALL edits or amendments must be made on the electronic/computer document * History of Present Illness HPI Chief complaint: Suspected ectopic HPI: 28 y/o presents as a self transported transport for evaluation of a suspected right ectopic . Patient presented to [facility] in [facility] with a positive test and [...] 81 16 129/67 87 100 Room air 06/18 2143 99.0 85 17 121/79 93 97 [...] % (Auto) (14.5 - 29.7 %) 20.5 Newton % (Auto) (3.6 - 10.2 %) 6.7 Eos % (Auto) (0.0 - 3.0 %) 1.3 Baso % (Auto) (0.1 - 0.9 %) 0.3 Neut # (Auto) (K/mm3) 8.6 Lymph # (Auto) (K/mm3) 2.5 Newton # (Auto) (K/mm3) 0.8 Eos # (Auto) (K/mm3) 0.16 Baso # (Auto) (K/mm3) 0.0 Laboratory Tests 04/08 2201 Miscellaneous Maternal Serum HCG (mIU/mL) 2719 Laboratory Tests 04/08 2201 Urines Urine Color (YELLOW) YELLOW Urine Appearance (CLEAR) Slightly-Cloudy Urine pH (5 - 9) 5.0 Ur Specific [place] (1.001 - 1.035) 1.023 Urine Protein (NEG) [...] 2210 Report Impression - Status: SIGNED Entered: 04/08/2024 230 IMPRESSION: No intrauterine . Echogenic structure in the right adnexa measuring 2.1 x 1.3 x 1.7 cm may represent an ectopic . Thickened endometrium measures 1.7 cm with multiple nonspecific prominent vessels/vasculature within the myometrium. Impression By: [email or web address] - Darinel Hall M.D. Diagnosis, Assessment Plan Problem List/A [...] treat with the Methotrexate. at 0028 RPT #:[id number] END OF REPORT [facility] 2024-04-08 22:01:00 [facility] ([facility]) EMERGENCY PROVIDER REPORT REPORT#:[id number] REPORT STATUS: Signed DATE:04/08/24 TIME: 2200 PATIENT: DEREK GARCIA UNIT #: [id number] ROOM/BED: AGE: 28 SEX: F PCP PHYS: Lyndon Billings MD SERVICE AUTHOR: Flor Rouse MD * ALL edits or amendments must be made on the electronic/computer document * HPI-Abd Pain F Under 40 General Initial Greet Date/Time 04/08/246 Presentation Chief Complaint Abdominal pain, , 1st [...] is a G6, P0 who transferred from [facility] due to concerns of [...] % (Auto) (14.5 - 29.7 %) 20.5 Newton % (Auto) (3.6 - 10.2 %) 6.7 Eos % (Auto) (0.0 - 3.0 %) 1.3 Baso % (Auto) (0.1 - 0.9 %) 0.3 Neut # (Auto) (K/mm3) 8.6 Lymph # (Auto) (K/mm3) 2.5 Newton # (Auto) (K/mm3) 0.8 Eos # (Auto) (K/mm3) 0.16 Baso # (Auto) (K/mm3) 0.0 Miscellaneous Maternal Serum HCG (mIU/mL) 2719 Urines Urine Color (YELLOW) YELLOW Urine Appearance (CLEAR) Slightly-Cloudy Urine pH (5 - 9) 5.0 Ur Specific [place] (1.001 - 1.035) 1.023 Urine Protein (NEG) [...] Consultation Consultation Referral/Consult Name Rosaline Goss MD Timber Management Assistant Called NET APPLICATION SUPPORT SPECIALIST Timber Management Assistant Discussed with warehouse consultant Requested Call Time 2349 Requested Call [...] 118 Temp 98.0 04/09 118 Pulse 79 04/098 Resp 16 04/09 118 All vital signs [...] or a call to 911. at 0523 [facility] #:[id number] END OF REPORT [facility] 2023-10-24 13:00:00 Addended by: RADHA JAMES on: 10/25/2023 03:51 PM Modules accepted: Orders [facility]
[2025-03-02] MEDS ORDERED: NA CHLORIDE 0.9% 1,000 ML ONE (15:43)
--- NOTE | 2025-03-02 15:54 | RAD REPORT ---
EXAM:OB Limited CLINICAL HISTORY: with bleeding after cerclage. TECHNIQUE: Limited OB ultrasound performed Comparison February 26, 2025 FINDINGS: Single live intrauterine in breech presentation. The placenta is anterior. No subchorionic/retroplacental bleed. Cervix 4 cm. Cervical os appears closed Femur length 2.8 cm 18 weeks 6 days A pocket of amniotic fluid measures 2.6 cm. The degree of amniotic fluid appears diminished from the February 26, 2025 exam. Right and left adnexa unremarkable IMPRESSION: Single live intrauterine in breech presentation. Estimated gestational age 18 weeks 6 days THOMAS 07/28/2025. Mild to moderate oligohydramnios. Close follow-up recommended
--- NOTE | 2025-03-02 15:56 | RAD REPORT ---
EXAM:TRANSVAG OB CERVIX ASSESSMENT TECHNIQUE: Transvaginal sonographic evaluation of the cervix performed. CLINICAL HISTORY: Vaginal bleeding status post cerclage FINDINGS: Small amount of fluid is present within the cervical canal. However, the cervical os appears closed. Cervix 4 cm. IMPRESSION: Cervical os appears closed. Cervix 4 cm
[2025-03-02 16:03] LABS: Absolute Eosinophils 0.1 K/uL (0-0.5); Absolute Lymphocytes (CBC) 1.9 K/uL (0.7-4.9); Absolute Monocytes 0.6 K/uL (0.1-1.3); Absolute Neutrophil 8.1 K/uL (1.8-8.0); Basophils % 0.4 % (0-1.3); Eosinophils % 0.7 % (0-4.4); Hematocrit 34.3 % (36.0-45.0); Hemoglobin 11.9 g/dL (12.0-15.0); Lymphocytes % 17.9 % (15.3-44.8); MCH 30.8 pg (27.0-35.0); MCHC 34.8 g/dL (32.0-36.0); MCV 88.5 fL (80-100); MPV 7.9 fL (7.6-11.3); Monocytes % 5.9 % (3.3-12.3); Neutrophils % 75.1 % (41.7-73.7); Platelets 261 thou/uL (152-406); RBC Red Blood Cell Count 3.87 M/uL (3.86-4.86); Red Cell Distribution Width 13.1 % (12.1-15.2)
[2025-03-02 16:17] LABS: Anion Gap 11.5 mEq/L (5.0-15.0); Potassium 3.5 mEq/L (3.5-5.1)
--- NOTE | 2025-03-02 16:24 | ER ---
Nurse's Notes [facility] Name: Beena Garcia Age: 29 yrs Sex: Female : 1995 Arrival Date: 03/02/2025 Time: 14:21 Bed 10 Private MD: Diagnosis: Oligohydramnios, threatened miscarriage Presentation: 03/02 14:27 Chief complaint: Had cerclage done Sunday, reports blood tinged discharge today. THOMAS hb 10/8, . Coronavirus screen: At this time, the client does not indicate any symptoms associated with coronavirus-19. Ebola Screen: No symptoms or risks identified at this time. Initial Sepsis Screen: Does the patient meet any 2 criteria? No. Patient's initial sepsis screen is negative. Does the patient have a suspected source of infection? No. Patient's initial sepsis screen is negative. Risk Assessment: Do you want to hurt yourself or someone else? Patient reports no desire to harm self or others. Onset of symptoms was March 02, 2025. 14:27 Method Of Arrival: Ambulatory hb 14:27 Acuity: LETTY 3 hb Historical: - Allergies: 14:28 Codeine (Hives); hb - PMHx: 14:28 UTI; hb - PSHx: 14:28 Ectopic x 2; L fallopian tube removed; hb - Immunization history:: Adult Immunizations up to date. - Infectious Disease History:: Denies. - Social history:: Smoking status: Patient denies any tobacco usage or history of. Screenin:34 [facility] ED Fall Risk Assessment (Adult) History of falling in the last 3 months, jb4 including since admission No falls in past 3 months (0 pts) Confusion or Disorientation No (0 pts) Intoxicated or Sedated No (0 pts) Impaired Gait No (0 pts) Mobility Assist Device Used No (0 pt) Altered Elimination No (0 pt) Score/Fall Risk Level 0 - 2 = Low Risk Oriented to surroundings, Maintained a safe environment. Abuse screen: Denies threats or abuse. Nutritional screening: No deficits noted. Tuberculosis screening: No symptoms or risk factors identified. Assessment: 15:30 Reassessment: Patient and/or family updated on plan of care and expected duration. Pain ll1 level reassessed. 15:45 General: Appears in no apparent distress. comfortable, Behavior is calm, cooperative, jb4 appropriate for age. Pain: Denies pain. Neuro: Level of Consciousness is awake, alert, obeys commands, Oriented to person, place, time, situation. Cardiovascular: Patient's skin is warm and dry. Respiratory: Airway is patent Respiratory effort is even, unlabored, Respiratory pattern is regular, symmetrical. GI: Abdomen is round non-distended. : Reports discharge, from vagina that is bloody. Derm: Skin is intact, Skin is pink, warm \T\ dry. Musculoskeletal: Circulation, motion, and sensation intact. Range of motion: intact in all extremities. 16:15 Reassessment: Patient appears in no apparent distress at this time. Patient and/or jb4 family updated on plan of care and expected duration. Pain level reassessed. Patient is alert, oriented x 3, equal unlabored respirations, skin warm/dry/pink. Vital Signs: 14:27 BP 122 / 71; Pulse 120; Resp 18; Temp 98(O); Pulse Ox 100% on R/A; Pain 1/10; hb 16:15 BP 110 / 64; Pulse 98; Resp 16; Pulse Ox 98% on R/A; jb4 14:27 Pain Scale: Adult hb ED Course: 14:23 Patient arrived in ED. im 14:23 Yoselin Castillo MD is Attending Physician. sp3 14:28 Triage completed. hb 14:29 Arm band placed on. hb 15:20 Patient not in lobby when called to exam room. hb 15:27 OB Limited In Process Unspecified. EDMS 15:27 TRANSVAG OB CERVIX ASSESSMENT In Process Unspecified. EDMS 15:30 Patient placed in an exam room, on a stretcher. ll1 15:55 Terrance Stanton, RN is Primary Nurse. jb4 15:56 Basic Metabolic Panel Sent. jb4 15:56 CBC with Diff Sent. jb4 16:34 Patient has correct armband on for positive identification. Bed in low position. Call jb4 light in reach. Side rails up X 1. Provided Education on: discharge instructions.. 16:34 No provider procedures requiring assistance completed. IV discontinued, intact, jb4 bleeding controlled, No redness/swelling at site. Pressure dressing applied. Administered Medications: 15:55 Drug: NS 0.9% IV 1000 ml IV at 1 bolus Per protocol; to be given as a bolus over 60 jb4 minutes Route: IV; Rate: 1 bolus; Site: right antecubital; Medication: 16:34 VIS not applicable for this client. jb4 Outcome: 16:23 Discharge ordered by . sp3 16:34 Discharged to home ambulatory, jb4 16:34 Condition: stable 16:34 Discharge instructions given to patient, Instructed on discharge instructions, follow up and referral plans. Demonstrated understanding of instructions, follow-up care, 16:39 Patient left the ED. jb4 Signatures: Dispatcher [employer] EDChristine Fajardo, RN RN Terrance Stanton RN RN jb4 Yvette Hopper RN RN ll1 Yoselin Castillo MD MD sp3 Annette Basilio
--- NOTE | 2025-03-02 16:24 | EDPHYS ---
Physician Documentation [facility] Name: Beena Garcia Age: 29 yrs Sex: Female : 1995 Arrival Date: 03/02/2025 Time: 14:21 Bed 10 Private MD: ED Physician Yoselin Castillo HPI: 03/02 15:00 This 29 yrs old Female presents to ER via Ambulatory with complaints of sp3 Vaginal Bleeding, 18 weeks . 15:00 29-year-old female, G8A7P0 now at 18 weeks with a cerclage placed 2 days ago at [facility] [place] due to early dilatation of the cervix. Today patient states she has had some yellow discharge with blood mixed in. This is different than her baseline. She is here for evaluation of this. She called her OB doctor who was not able to answer a call back. She denies any significant pain, significant heavy bleeding, chest pain, back pain, syncope, or any other signs or symptoms on ROS at this time.. Historical: - Allergies: 14:28 Codeine (Hives); hb - PMHx: 14:28 UTI; hb - PSHx: 14:28 Ectopic x 2; L fallopian tube removed; hb - Immunization history:: Adult Immunizations up to date. - Infectious Disease History:: Denies. - Social history:: Smoking status: Patient denies any tobacco usage or history of. ROS: 15:01 Constitutional: Negative for fever, chills, and weight loss, Eyes: Negative for injury, sp3 pain, redness, and discharge, Neck: Negative for injury, pain, and swelling, Cardiovascular: Negative for chest pain, palpitations, and edema, Respiratory: Negative for shortness of breath, cough, wheezing, and pleuritic chest pain, Abdomen/GI: Negative for abdominal pain, nausea, vomiting, diarrhea, and constipation, Back: Negative for injury and pain, MS/Extremity: Negative for injury and deformity, Skin: Negative for injury, rash, and discoloration, Neuro: Negative for headache, weakness, numbness, tingling, and seizure, Psych: Negative for depression, anxiety, suicide ideation, homicidal ideation, and hallucinations, Allergy/Immunology: Negative for hives, rash, and allergies, Endocrine: Negative for neck swelling, polydipsia, polyuria, polyphagia, and marked weight changes, 15:01 All other systems are negative, Exam: 15:02 Constitutional: This is a well developed, well nourished patient who is awake, alert, sp3 and in no acute distress. Head/Face: Normocephalic, atraumatic. Neck: Trachea midline, no thyromegaly or masses palpated, and no cervical lymphadenopathy. Supple, full range of motion without nuchal rigidity, or vertebral point tenderness. No Meningismus. Chest/axilla: Normal chest wall appearance and motion. Nontender with no deformity. No lesions are appreciated. Cardiovascular: Regular rate and rhythm with a normal S1 and S2. No gallops, murmurs, or rubs. Normal PMI, no JVD. No pulse deficits. Respiratory: Lungs have equal breath sounds bilaterally, clear to auscultation and percussion. No rales, rhonchi or wheezes noted. No increased work of breathing, no retractions or nasal flaring. Abdomen/GI: Soft, non-tender, with normal bowel sounds. No distension or tympany. No guarding or rebound. No evidence of tenderness throughout. Back: No spinal tenderness. No costovertebral tenderness. Full range of motion. Skin: Warm, dry with normal turgor. Normal color with no rashes, no lesions, and no evidence of cellulitis. MS/ Extremity: Pulses equal, no cyanosis. Neurovascular intact. Full, normal range of motion. Neuro: Awake and alert, GCS 15, oriented to person, place, time, and situation. Cranial nerves II-XII grossly intact. Motor strength 5/5 in all extremities. Sensory grossly intact. Cerebellar exam normal. Normal gait. 15:02 : Pelvic exam deferred secondary to ultrasound ordered and cerclage in place., Vital Signs: 14:27 BP 122 / 71; Pulse 120; Resp 18; Temp 98(O); Pulse Ox 100% on R/A; Pain 1/10; hb 16:15 BP 110 / 64; Pulse 98; Resp 16; Pulse Ox 98% on R/A; jb4 14:27 Pain Scale: Adult hb MDM: 14:26 Medical Screening Exam initiated sp3 15:02 Data reviewed: vital signs, nurses notes, lab test result(s), radiologic studies. ED sp3 course: 29-year-old female G8 A7 P0 at 18 weeks with cerclage placed 2 days ago. Differential diagnosis includes light bleeding postprocedure versus procedure complication versus miscarriage in progress. Heart rate also mildly elevated. Will obtain general labs, administer IV fluids and obtain ultrasound. Disposition pending workup and patient course.. 16:22 ED course: Blood work returns with normal including hemoglobin. Heart rate now 98 with sp3 normal blood pressure. Patient has oligohydramnios on her ultrasound. heart rate is normal. We will discharge with close follow-up with OB.. 03/02 14:32 Order name: Basic Metabolic Panel; Complete Time: 16:21 sp3 03/02 14:32 Order name: CBC with Diff; Complete Time: 16:21 sp3 03/02 14:54 Order name: OB Limited; Complete Time: 16:00 EDMS 03/02 14:57 Order name: TRANSVAG OB CERVIX ASSESSMENT; Complete Time: 16:00 EDMS 03/02 14:30 Order name: Recheck Vital Signs; Complete Time: 16:15 sp3 03/02 14:32 Order name: IV Saline Lock; Complete Time: 15:56 sp3 03/02 14:32 Order name: Labs collected and sent; Complete Time: 15:56 sp3 03/02 14:32 Order name: NPO; Complete Time: 15:56 sp3 Administered Medications: 15:55 Drug: NS 0.9% IV 1000 ml IV at 1 bolus Per protocol; to be given as a bolus over 60 jb4 minutes Route: IV; Rate: 1 bolus; Site: right antecubital; Disposition Summary: 03/02/25 16:23 Discharge Ordered Notes: Location: Home sp3 Condition: Stable sp3 Diagnosis - Oligohydramnios, threatened miscarriage sp3 Followup: sp3 - With: Private Physician - When: Upon discharge from the Emergency Department - Reason: Recheck today's complaints, Continuance of care Discharge Instructions: - Discharge Summary Sheet sp3 - Threatened Miscarriage sp3 Forms: - Medication Reconciliation Form sp3 - Antibiotic Education sp3 - Prescription Opioid Use sp3 - Patient Portal Instructions sp3 - Leadership Thank You Letter sp3 Signatures: Dispatcher [employer] Christine Sahni RN RN Terrance Stanton RN RN jb4 Yoselin Castillo MD MD sp3 Corrections: (The following items were deleted from the chart) 14:54 14:30 Transvaginal Ob+US.RAD.BRZ ordered. EDMS EDMS
[2025-03-02 17:05] VITALS: TEMP 98
[2025-03-02 17:07] VITALS: BP 110/64; O2SAT 98
== END 2025-03-02 16:39 | disposition home or self-care (01) ==
LOC: ER 14:21
DX: O41.02X0 Oligohydramnios, second trimester, not applicable or unspecified (principal); O20.0 Threatened abortion; Z3A.18 18 weeks gestation of pregnancy
CPT/HCPCS: 85025; 80048; 36415; 76815; 76817; 99284; J7030